=== PATIENT | male | born 1935 | race Caucasian/White ===

== ENCOUNTER → 2016-12-18 | Outpatient (REF) | payer MEDICARE, BC ==
[~2016-12-18] MED LIST: ADVA115A INH; ALB2.5NEB INH; ASPI1TAB PO; AZIT500T2 PO; BUPR15TA PO; CARV25TA PO; CLAR500T PO; COUM1TAB19 PO; DOCU100C PO; DOXY100C PO; DOXY75CA3 PO; FISH120012 PO; FLON0.054; FLUT1SPR2; FURO40TA2 PO; GABA600T PO; GLUCTAB61 PO; HYDR-3719 PO; MUCI1TAB18 PO; NEXI40CA PO; NITR4TASL SL; OCEA0.654; PRED10TA PO; PROA1AER INH; REST0.05 OU; ROSU10TA PO; SALI0.653; SPIR1CAP INH; SPIR25TA2 PO; TERA10CA3 PO; TOPR50TA PO; TYLE325T5 PO; VITA500046 PO
[2016-12-18 17:45] LABS: BASO % 0.7 % (0.0-1.0); EOS # 0.1 K/mm3 (0.0-0.50); EOS % 2.3 % (0.0-3.0); LARGE UNSTAINED CELL # 0.1 K/mm3 (0.0-0.4); LARGE UNSTAINED CELL % 2.6 % (0.0-4.0); LYMPH % 19.8 % (24.0-44.0); MEAN CORPUSCULAR HEMOGLOBIN 31.1 pg (27.0-33.0); MEAN CORPUSCULAR HGB CONC 32.4 g/dl (32.0-36.5); MONO # 0.4 K/mm3 (0.0-0.8); MONO % 9.6 % (0.0-5.0); NEUTROPHILS # 2.8 K/mm3 (1.8-7.7); RED CELL DISTRIBUTION WIDTH 14.8 % (11.5-14.5); WHITE BLOOD COUNT 4.3 K/mm3 (4.0-10.0)
[2016-12-18 20:20] LABS: ERYTHROCYTE SEDIMENTATION RATE 43 mm/hr (0-20)
[2016-12-18 20:33] LABS: PLATELET COUNT, AUTOMATED 76 k/mm3 (150-450)
[2016-12-20 14:16] LABS: Lyme Disease IgG/IgM Antibodie <0.91 ISR (0.00-0.90); Lyme Disease IgM Ab Quantitati <0.80 index (0.00-0.79)
== END | disposition home or self-care (01) ==
LOC: M LABDRAW1 15:46
PROVIDERS: ATTEND Orthopaedic Surgery
DX: M65.322 Trigger finger, left index finger (principal)

== ENCOUNTER 2016-12-26 21:35 | Emergency (ER) | payer MEDICARE, OTHER ==
--- NOTE | 2016-12-26 22:50 | REPUSA ---
Clinical history: Pain, swelling. Findings: The common femoral, superficial femoral, popliteal, and other deep venous structures compre ss normally and demonstrate normal color Doppler flow. Normal venous waveforms with augmentation are seen. Impression: No evidence of deep vein thrombosis in either femoral popliteal venous system.
[2016-12-26] MEDS ORDERED: IPRATROPIUM 0.5MG/ALBUTEROL 2.5MG INH SOL UD 3ML (DUONEB)(J7620) As Ordered ONE (23:02)
[2016-12-26 23:16] LABS: BASO % 0.4 % (0.0-1.0); EOS # 0.2 K/mm3 (0.0-0.50); LARGE UNSTAINED CELL # 0.2 K/mm3 (0.0-0.4); LARGE UNSTAINED CELL % 2.5 % (0.0-4.0); LYMPH # 0.8 K/mm3 (1.5-4.5); LYMPH % 11.1 % (24.0-44.0); MEAN CORPUSCULAR HEMOGLOBIN 31.1 pg (27.0-33.0); MEAN CORPUSCULAR HGB CONC 32.7 g/dl (32.0-36.5); MEAN CORPUSCULAR VOLUME 94.8 fl (80.0-96.0); MONO # 0.6 K/mm3 (0.0-0.8); NEUTROPHILS # 4.4 K/mm3 (1.8-7.7); NEUTROPHILS % 73.1 % (36.0-66.0); RED CELL DISTRIBUTION WIDTH 14.9 % (11.5-14.5)
[2016-12-26] MEDS ORDERED: methylPREDNISolone INJ 125 MG/2 ML VIAL (J2930) As Ordered ONE (23:17)
[2016-12-26] MEDS ORDERED: ASPIRIN 81 MG CHEW TABLET As Ordered ONE (23:17)
[2016-12-26 23:24] LABS: INR 2.32
[2016-12-26 23:37] LABS: ANION GAP 9 MEQ/L (8-16); BLOOD UREA NITROGEN 17 MG/DL (7-18); CALCIUM LEVEL 8.7 MG/DL (8.8-10.2); CARBON DIOXIDE LEVEL 26 MEQ/L (21-32); CHLORIDE LEVEL 104 MEQ/L (98-107); CREATININE FOR GFR 0.85 MG/DL (0.70-1.30); GLOMERULAR FILTRATION RATE > 60.0 (>35); GLUCOSE, FASTING 118 MG/DL (83-110); POTASSIUM SERUM 3.8 MEQ/L (3.5-5.1); SODIUM LEVEL 139 MEQ/L (136-145)
[2016-12-26 23:46] LABS: PLATELET COUNT, AUTOMATED 77 k/mm3 (150-450)
[2016-12-27] MEDS ORDERED: ISOVUE-370 76% 100ML VIAL (Q9967) As Ordered ONE (00:07)
--- NOTE | 2016-12-27 00:40 | REPUSA ---
CT angiogram of the chest Clinical statement: Chest pain and shortness of breath. Technique: Multiple axial CT images were obtained from the thoracic inlet through the upper abdomen a fter a bolus administration of nonionic intravenous contrast. Coronal and sagittal reconstructions we re also obtained. No comparison is available. Findings: The pulmonary arteries are well-opacified with contrast, with no intraluminal filling defec ts to suggest embolism. The thoracic aorta is unremarkable. Thyroid gland is within normal limits. Th ere is no thoracic lymphadenopathy. There are no pericardial or pleural effusions. The lungs are home r. Limited imaging of the upper abdomen is unremarkable. There are no suspicious osseous lesions. Impression: Unremarkable CT examination of the chest. No evidence of pulmonary embolism.
--- NOTE | 2016-12-27 05:18 | EDDOCDS ---
Nurse's Notes [facility] Name: Tor Terrazas Age: 81 yrs Sex: Male : 1935 Arrival Date: 12/26/2016 Time: 21:35 Bed OBSERVATION Private MD: Dennys Cobian Diagnosis: Chronic obstructive pulmonary disease with (acute) exacerbation Presentation: 12/26 21:42 Presenting complaint: Patient states: Increased SOB and muscle cramping began a week mlb1 ago, reports Pain heaviness in chest at this time. Presenting complaint:. Adult Sepsis Screening: The patient does not have new or worsening altered mentation. Patient's respiratory rate is less than 22. Adult Sepsis Screening: Systolic blood pressure is greater than 100. Patient has a qSOFA score of 0- Negative Sepsis Screen. Suicide/Homicide risk assessment- the patient denies having any suicidal and/or homicidal ideations and does not present with any other emotional, behavioral or mental health complaints. 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 Transition of care: patient was not received from another setting of care. 21:42 Acuity: PATIENCE Level 2 mlb1 21:42 Method Of Arrival: Walkin/Carried/Asstd mlb1 Triage Assessment: 21:50 General: Appears in no apparent distress, Behavior is appropriate for age, cooperative. mlb1 Pain: Location: chest Pain currently is 2 out of 10 on a pain scale. Quality of pain is described as heavy. Respiratory: Onset: The symptoms/episode began/occurred gradually, Airway is patent Respiratory effort is even, labored. Historical: - Allergies: no known allergies; - Home Meds: 1. Fish Oil 1200 mg Oral cap 2 tabs daily 2. spironolactone 25 mg Oral tab 1 tab 2 times per day 3. furosemide 40 mg Oral tab 1 tab 2 times per day 4. ProAir HFA 90 mcg/actuation inhalation HFAA 2 puffs every 6 hours 5. terazosin 10 mg oral cap 1 cap once daily 6. Flonase 50 mcg/actuation Nasal spsn 2 sprays once daily 7. Advair HFA 115-21 mcg/actuation inhalation HFAA 2 puffs 2 times per day 8. Restasis 0.05 % ophthalmic dpet 1 drop 2 times per day 9. Crestor 10 mg Oral tab 1 tab once daily 10. Nexium 40 mg Oral cpDR 1 cap 2 times per day 11. Spiriva with HandiHaler 18 mcg Inhl CpDv 1 cap once daily 12. Coumadin 3 mg Oral tab 2 tabs once daily 13. metoprolol succinate 50 mg Tb24 1 tab once daily 14. Nitrostat 0.4 mg SL subl 1 tab every 5 minutes as needed 15. gabapentin 600 mg Oral tab 1 tab 3 times per day 16. albuterol sulfate 2.5 mg /3 mL (0.083 %) Inhl nebu 3 mL 4 times per day 17. GI cocktail 15 mL four times a day as needed - PMHx: CAD; Atrial Fib; - PSHx: CABG; Stents, Coronary; Nephrectomy- Right; Appendectomy; - Social history: Smoking status: Patient states former smoker of tobacco. No barriers to communication noted, The patient speaks fluent Thai, Speaks appropriately for age. - Family history: Not pertinent. - : The pt / caregiver states he / she is on anticoagulants: coumadin. Home medication list is obtained from the patient. - Exposure Risk Screening:: None identified. Screenin:00 Screening information is obtained from the patient. Fall risk: No risks identified. js15 Assistance ADL's: requires no assistance with activities of daily living. Abuse/DV Screen: The patient / caregiver reports he/she is: not in a situation that causes fear, pain or injury. Nutritional screening: No deficits noted. Advance Directives: There is no active DNR order. home support is adequate. Assessment: 22:15 General: Appears in no apparent distress, comfortable, Behavior is appropriate for age, js15 cooperative. Pain: Denies pain. Neurological: Level of Consciousness is awake, alert, obeys commands, Oriented to person, place, time. Cardiovascular: Capillary refill < 3 seconds Heart tones S1 S2 present Rhythm is atrial fibrillation. Cardiovascular: Chest pain is denied. Respiratory: Airway is patent Respiratory effort is even, labored, Respiratory pattern is regular, symmetrical, Breath sounds with wheezes bilaterally. Reports shortness of breath. Derm: Skin is pink, warm & dry. 23:15 Reassessment: Patient appears in no apparent distress at this time. Pt resting on js15 stretcher, family at bedside, respirations even and unlabored; skin pink, warm, dry. 12/27 00:15 Reassessment: Patient appears in no apparent distress at this time. Patient denies pain js15 at this time. Patient states feeling better. Pt resting on stretcher, respirations even and unlabored; skin pink, warm, dry. 01:15 General: Appears in no apparent distress, comfortable, Behavior is appropriate for age, js15 cooperative. Pain: Denies pain. Neurological: Level of Consciousness is awake, alert, obeys commands, Oriented to person, place, time. Cardiovascular: Rhythm is atrial fibrillation. Respiratory: Airway is patent Respiratory effort is even, unlabored, Respiratory pattern is regular, symmetrical. Derm: Skin is pink, warm & dry. 02:30 Reassessment: Patient appears in no apparent distress at this time. Pt resting on js15 stretcher with eyes closed; respirations even and unlabored; skin pink, warm, dry. 03:30 Reassessment: Patient appears in no apparent distress at this time. Pt appears to be js15 sleeping; respiration even and unlabored; skin pink, warm, dry. 05:12 General: Appears in no apparent distress, comfortable, Behavior is appropriate for age, js15 cooperative. Pain: Denies pain. Neurological: Level of Consciousness is awake, alert, obeys commands, Oriented to person, place, time. Cardiovascular: Rhythm is atrial fibrillation. Respiratory: Airway is patent Respiratory effort is even, unlabored, Respiratory pattern is regular, symmetrical. Derm: Skin is pink, warm & dry. Vital Signs: 12/26 21:38 BP 149 / 80; Pulse 80; Resp 18 S; Temp 98.0(T); Pulse Ox 97% on R/A; Weight 114.31 kg gr2 (R); Height 5 ft. 8 in. (172.72 cm) (R); Pain 7/10; 22:26 Pulse 76 MON; Pulse Ox 96% ; js15 22:27 BP 142 / 63 (auto/); js15 22:46 Pulse 76 MON; Pulse Ox 96% ; js15 22:47 BP 132 / 80 (auto/); js15 22:56 Pulse 72 MON; Pulse Ox 96% ; js15 22:57 BP 143 / 65 (auto/); js15 23:11 Pulse 70 MON; Pulse Ox 97% ; js15 23:12 BP 140 / 63 (auto/); js15 23:26 Pulse 80 MON; Pulse Ox 96% ; js15 23:27 BP 140 / 65 (auto/); js15 23:42 BP 153 / 75 (auto/); js15 23:42 Pulse 84 MON; Pulse Ox 95% ; js15 23:56 Pulse 84 MON; Pulse Ox 94% ; js15 23:57 BP 151 / 59 (auto/); js15 12/27 00:11 Pulse 84 MON; Pulse Ox 95% ; js15 00:12 BP 146 / 60 (auto/); js15 00:27 BP 129 / 60 (auto/); js15 00:27 Pulse 82 MON; Pulse Ox 93% ; js15 00:42 BP 133 / 62 (auto/); js15 00:42 Pulse 78 MON; Pulse Ox 92% ; js15 01:12 BP 133 / 70 (auto/); js15 01:12 Pulse 78 MON; Pulse Ox 95% ; js15 01:26 Pulse 78 MON; Pulse Ox 94% ; js15 01:27 BP 131 / 63 (auto/); js15 01:41 Pulse 70 MON; Pulse Ox 94% ; js15 01:42 BP 106 / 58 (auto/); js15 01:56 Pulse 70 MON; Pulse Ox 94% ; js15 01:57 BP 139 / 75 (auto/); js15 02:11 Pulse 64 MON; Pulse Ox 94% ; js15 02:12 BP 134 / 63 (auto/); js15 02:26 Pulse 68 MON; Pulse Ox 94% ; js15 02:27 BP 127 / 62 (auto/); js15 02:38 Pulse 70 MON; Pulse Ox 95% ; js15 02:42 BP 141 / 81 (auto/); js15 02:57 BP 120 / 65 (auto/); js15 02:57 Pulse 68 MON; Pulse Ox 93% ; js15 03:11 Pulse 66 MON; Pulse Ox 94% ; js15 03:12 BP 118 / 58 (auto/); js15 03:26 Pulse 68 MON; Pulse Ox 94% ; js15 03:27 BP 127 / 63 (auto/); js15 03:41 Pulse 66 MON; Pulse Ox 95% ; js15 03:42 BP 127 / 60 (auto/); js15 03:56 Pulse 72 MON; Pulse Ox 95% ; js15 03:57 BP 139 / 77 (auto/); js15 04:12 BP 135 / 75 (auto/); js15 04:12 Pulse 72 MON; Pulse Ox 95% ; js15 04:26 Pulse 70 MON; Pulse Ox 95% ; js15 04:27 BP 138 / 72 (auto/); js15 04:41 Pulse 68 MON; Pulse Ox 96% ; js15 04:42 BP 137 / 64 (auto/); js15 04:57 BP 147 / 70 (auto/); js15 04:58 Pulse 78 MON; Resp 20; Temp 98.0(TE); Pulse Ox 96% on R/A; js15 12/26 21:38 Body Mass Index 38.32 (114.31 kg, 172.72 cm) gr2 Vitals: 12/26 21:38 Log In Time: December 26, 2016 at 21:38. RN notified that patient meets Red Flag gr2 criteria. ED Course: 21:37 Patient visited by Sarah Shrestha. gr2 21:37 Patient moved to Waiting gr2 21:38 Dennys Cobian is Private Physician. gr2 21:41 Patient visited by Sarah Shrestha. gr2 21:41 Patient moved to Pre RCE gr2 21:42 Patient visited by Tereso Zamudio, MAKSIM. mlb1 21:46 Triage Initiated mlb1 21:49 Patient moved to 17 ms18 21:50 Patient visited by Tereso Zamudio, RN. mlb1 21:51 Alfie Pagan MD is Attending Physician. br1 22:06 Patient visited by Alfie Pagan MD. br1 22:10 EKG done. (by ED staff). Reviewed by Alfie Pagan MD. js15 22:15 Patient moved to Ultrasound en 22:43 Patient moved to 17 en 23:00 Inserted saline lock: 20 gauge in right antecubital area The patient tolerated the js15 procedure well. 23:04 Patient visited by Anny Toth,RN. js15 23:04 PTT Sent. js15 23:04 PT/INR Sent. js15 23:04 B-Type Natiuretic Peptide Sent. js15 23:04 Basic Metabolic Profile Sent. js15 23:04 CBC with Diff Sent. js15 23:04 Troponin Sent. js15 23:04 Cardiac Injury Profile Sent. js15 23:05 Ultrasound Bilateral LE R/O DVT Returned. EDMS 12/27 00:39 Patient visited by Anny Toth RN. js15 00:45 Patient visited by Alfie Pagan MD. br1 01:04 Pt greeted and oriented to ED. Patient advised of names of staff involved in care, rs6 location of call tristan, wait times and NPO status. Accompanied by Family Member, Patient has correct armband on for positive identification. Placed in gown. Bed in low position. Call light in reach. Side rails up X 1. 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 Pulse ox on. NIBP on. 01:05 ambulated pt with pulse ox monitor. Pulse ox ranged from 89-94% on room air and his rs6 heart rate ranged between 80-120 bpm. Pt denies pain, dizziness and shortness of breath. Dr. Pagan notified. 01:08 Patient visited by Sintia Royal PCA. rs6 01:08 CT Chest Angio R/O PE Returned. EDMS 01:35 Patient moved to OBSERVATION sls1 04:42 Patient visited by Alfie Pagan MD. br1 04:51 Anna Garcia is Referral Physician. br1 04:51 Misael Sheppard MD is Referral Physician. br1 04:51 Your own Physician is Referral Physician. br1 05:08 [facility] Payment Agreement was scanned into [facility] and attached to record. hs2 05:12 Patient name changed from Tor\S\\S\Terrazas\S\ to Tor\S\ \S\Terrazas. EDMS 05:14 The patient / caregiver is instructed regarding the plan of care and ED course. js15 05:14 Discontinued IV lock intact, bleeding controlled, pressure dressing applied, No js15 redness/swelling at site. No procedures done that require assistance. Administered Medications: 12/26 23:00 Drug: Albuterol-Ipratropium 1 neb [ipratropium-albuterol 0.5 mg-3 mg(2.5 mg base)/3 mL dk nebulization soln (1 neb)] Route: Nebulizer; 23:25 Drug: Albuterol-Ipratropium 1 neb [ipratropium-albuterol 0.5 mg-3 mg(2.5 mg base)/3 mL dk nebulization soln (1 neb)] Route: Nebulizer; 23:40 Drug: Aspirin 324 mg [aspirin 81 mg chewable tablet (4 tabs)] Route: PO; 23:41 Drug: Solu-MEDROL 125 mg [Solu-Medrol 500 mg intravenous solution (125 mg)] Route: IVP; Site: right antecubital; 23:45 Drug: Albuterol-Ipratropium 1 neb [ipratropium-albuterol 0.5 mg-3 mg(2.5 mg base)/3 mL dk nebulization soln (1 neb)] Route: Nebulizer; RT: 23:46 Initial Med Neb Given as ordered Patient was instructed and evaluated on procedure dk Patient tolerated procedure well without adverse effect. Oxygen is room air. Respiratory: No deficits noted. Airway is patent Respiratory effort is even, unlabored, Respiratory pattern is regular symmetrical, Breath sounds with rales Breath sounds with wheezes at expiration. 23:47 Subsequent Med Neb Given as ordered Patient tolerated procedure well without adverse dk effect. Respiratory: Breath sounds with rales Breath sounds with wheezes at expiration. 23:47 Subsequent Med Neb Given as ordered. Respiratory: Breath sounds with rales Breath dk sounds with wheezes at expiration. Order Results: Lab Order: B-Type Natiuretic Peptide; SPEC'M 12/26/16 22:58 Test: BRAIN NATRIURETIC PEPTIDE; Value: 231; Range: <100; Abnormal: Above high normal; Units: PG/ML; Status: F Lab Order: Basic Metabolic Profile; SPEC'M 12/26/16 22:58 Test: GLUCOSE, FASTING; Value: 118; Range: 83-110; Abnormal: Above high normal; Units: MG/DL; Status: F Test: BLOOD UREA NITROGEN; Value: 17; Range: 7-18; Units: MG/DL; Status: F Test: CREATININE FOR GFR; Value: 0.85; Range: 0.70-1.30; Units: MG/DL; Status: F Test: GLOMERULAR FILTRATION RATE; Value: > 60.0; Range: >35; Status: F Test: SODIUM LEVEL; Value: 139; Range: 136-145; Units: MEQ/L; Status: F Test: POTASSIUM SERUM; Value: 3.8; Range: 3.5-5.1; Units: MEQ/L; Status: F Test: CHLORIDE LEVEL; Value: 104; Range: 98-107; Units: MEQ/L; Status: F Test: CARBON DIOXIDE LEVEL; Value: 26; Range: 21-32; Units: MEQ/L; Status: F Test: ANION GAP; Value: 9; Range: 8-16; Units: MEQ/L; Status: F Test: CALCIUM LEVEL; Value: 8.7; Range: 8.8-10.2; Abnormal: Below low normal; Units: MG/DL; Status: F Test Note: ; Units are mL/min/1.73 m2 Chronic Kidney Disease Staging per NKF: Stage I & II GFR >=60 Normal to Mildly Decreased Stage III GFR 30-59 Moderately Decreased Stage IV GFR 15-29 Severely Decreased Stage V GFR <15 Very Little GFR Left ESRD GFR <15 on 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 Lab Order: CBC with Diff; SPEC'M 12/26/16 22:58 Test: WHITE BLOOD COUNT; Value: 6.0; Range: 4.0-10.0; Units: K/mm3; Status: F Test: RED BLOOD COUNT; Value: 4.11; Range: 4.30-6.10; Abnormal: Below low normal; Units: M/mm3; Status: F Test: HEMOGLOBIN; Value: 12.8; Range: 14.0-18.0; Abnormal: Below low normal; Units: g/dl; Status: F Test: HEMATOCRIT; Value: 39.0; Range: 42.0-52.0; Abnormal: Below low normal; Units: %; Status: F Test: MEAN CORPUSCULAR VOLUME; Value: 94.8; Range: 80.0-96.0; Units: fl; Status: F Test: MEAN CORPUSCULAR HEMOGLOBIN; Value: 31.1; Range: 27.0-33.0; Units: pg; Status: F Test: MEAN CORPUSCULAR HGB CONC; Value: 32.7; Range: 32.0-36.5; Units: g/dl; Status: F Test: RED CELL DISTRIBUTION WIDTH; Value: 14.9; Range: 11.5-14.5; Abnormal: Above high normal; Units: %; Status: F Test: PLATELET COUNT, AUTOMATED; Value: 77; Range: 150-450; Abnormal: Below low normal; Units: k/mm3; Status: F Test: NEUTROPHILS %; Value: 73.1; Range: 36.0-66.0; Abnormal: Above high normal; Units: %; Status: F Test: LYMPH %; Value: 11.1; Range: 24.0-44.0; Abnormal: Below low normal; Units: %; Status: F Test: MONO %; Value: 10.0; Range: 0.0-5.0; Abnormal: Above high normal; Units: %; Status: F Test: EOS %; Value: 3.0; Range: 0.0-3.0; Units: %; Status: F Test: BASO %; Value: 0.4; Range: 0.0-1.0; Units: %; Status: F Test: LARGE UNSTAINED CELL %; Value: 2.5; Range: 0.0-4.0; Units: %; Status: F Test: NEUTROPHILS #; Value: 4.4; Range: 1.8-7.7; Units: K/mm3; Status: F Test: LYMPH #; Value: 0.8; Range: 1.5-4.5; Abnormal: Below low normal; Units: K/mm3; Status: F Test: MONO #; Value: 0.6; Range: 0.0-0.8; Units: K/mm3; Status: F Test: EOS #; Value: 0.2; Range: 0.0-0.50; Units: K/mm3; Status: F Test: BASO #; Value: 0.0; Range: 0.0-0.2; Units: K/mm3; Status: F Test: LARGE UNSTAINED CELL #; Value: 0.2; Range: 0.0-0.4; Units: K/mm3; Status: F Lab Order: Cardiac Injury Profile; SPEC'M 12/26/16 22:58 Test: CPK CREATINE PHOSPHOKINASE; Value: 117; Range: 39-308; Units: U/L; Status: F Test: CK-MB VALUE MASS; Value: 1.2; Range: 0.0-3.6; Units: NG/ML; Status: F Test: MB/CK RELATIVE INDEX; Value: 1.02; Range: < OR =4; Status: F Test Note: ; DIAGNOSIS CRITERIA MMB ng/ml Relative Index (RI) NON-AMI < or = 5 N/A PRIETO ZONE > 5 < or = 4 AMI > 5 > 4 Lab Order: Troponin; [facility] 12/26/16 22:58 Test: TROPONIN I; Value: < 0.02; Range: < 0.10; Units: NG/ML; Status: F Test Note: ; Troponin I Reference Interval for Siemens [email or web address].[email or web address] LOCI: 99th Percentile= 0.00-0.045 ng/ml Risk Stratification: <= 0.10 ng/ml Decreased Risk for Adverse Clinical Events. 0.10-1.50 ng/ml Increased Risk for Adverse Clinical Events. Evaluation of additional criterion and/or repeat testing in 2-6 hours is suggested to rule out myocardial damage. >= 1.50 ng/ml Indicative of Myocardial Injury. Lab Order: PT/INR; [facility] 12/26/16 22:58 Test: PROTHROMBIN TIME; Value: 25.5; Range: 12.3-14.5; Abnormal: Above high normal; Units: SECONDS; Status: F Test: INR; Value: 2.32; Status: F Test Note: ; THERAPUTIC HUMAN INR VALUES INDICATIONS NORMAL RANGES PROPHYLAXIS/TREATMENT OF: VENOUS THROMBOSIS 2.0-3.0 PULMONARY EMBOLISM 2.0-3.0 PREVENTION OF SYSTEMIC EMBOLISM FROM: TISSUE HEART VALVES 2.0-3.0 ACUTE MYOCARDIAL INFARCTION 2.0-3.0 VALVULAR HEART DISEASE 2.0-3.0 ATRIAL FIBRILLATION 2.0-3.0 MECHANICAL VALVES(HIGH RISK) 2.5-3.5 RECURRENT MYOCARDIAL INFARCTION 2.5-3.5 Lab Order: PTT; [facility] 12/26/16 22:58 Test: PARTIAL THROMBOPLASTIN TIME; Value: 65.4; Range: 26.6-37.1; Abnormal: Above high normal; Units: SECONDS; Status: F Lab Order: CARDIAC INJURY PROFILE; [facility] 12/27/16 04:03 Test: CPK CREATINE PHOSPHOKINASE; Value: 107; Range: 39-308; Units: U/L; Status: F Test: CK-MB VALUE MASS; Value: 1.1; Range: 0.0-3.6; Units: NG/ML; Status: F Test: MB/CK RELATIVE INDEX; Value: 1.02; Range: < OR =4; Status: F Test Note: ; DIAGNOSIS CRITERIA MMB ng/ml Relative Index (RI) NON-AMI < or = 5 N/A PRIETO ZONE > 5 < or = 4 AMI > 5 > 4 Lab Order: TROPONIN; SPEC'M 12/27/16 04:03 Test: TROPONIN I; Value: < 0.02; Range: < 0.10; Units: NG/ML; Status: F Test Note: ; Troponin I Reference Interval for Siemens [place] LOCI: 99th Percentile= 0.00-0.045 ng/ml Risk Stratification: <= 0.10 ng/ml Decreased Risk for Adverse Clinical Events. 0.10-1.50 ng/ml Increased Risk for Adverse Clinical Events. Evaluation of additional criterion and/or repeat testing in 2-6 hours is suggested to rule out myocardial damage. >= 1.50 ng/ml Indicative of Myocardial Injury. Radiology Order: Ultrasound Bilateral LE R/O DVT Test: Ultrasound Bilateral LE R/O DVT REASON FOR EXAMINATION: Deformity/Swelling; ; Clinical history: Pain, swelling.; Findings: The common femoral, superficial femoral, popliteal, and other deep venous structures compre; ss normally and demonstrate normal color Doppler flow. Normal venous waveforms with augmentation are; seen.; Impression:; No evidence of deep vein thrombosis in either femoral popliteal venous system.; ; Radiology Order: CT Chest Angio R/O PE Test: CT Chest Angio R/O PE REASON FOR EXAMINATION: Chest Pain; ; CT angiogram of the chest; Clinical statement: Chest pain and shortness of breath.; Technique: Multiple axial CT images were obtained from the thoracic inlet through the upper abdomen a; fter a bolus administration of nonionic intravenous contrast. Coronal and sagittal reconstructions we; re also obtained.; No comparison is available.; Findings: The pulmonary arteries are well-opacified with contrast, with no intraluminal filling defec; ts to suggest embolism. The thoracic aorta is unremarkable. Thyroid gland is within normal limits. Th; ere is no thoracic lymphadenopathy. There are no pericardial or pleural effusions. The lungs are home; r. Limited imaging of the upper abdomen is unremarkable. There are no suspicious osseous lesions.; Impression: Unremarkable CT examination of the chest. No evidence of pulmonary embolism.; ; Outcome: 12/27 04:52 Discharge ordered by Provider. br1 05:14 Discharge Assessment: Patient awake, alert and oriented x 3. No cognitive and/or js15 functional deficits noted. Patient verbalized understanding of disposition instructions. patient administered narcotics - no. The following High Risk Discharge criteria are identified: None. Discharged to home ambulatory, with family. Condition: improved. Discharge instructions given to patient, Instructed on discharge instructions, follow up and referral plans. medication usage, Demonstrated understanding of instructions, medications, Pt was receptive of discharge instructions/ teaching. Prescriptions given X 1. CT Study completed. Ultrasound Study completed. Property sent home with patient. 05:17 Patient left the ED. js15 Signatures: Dispatcher [employer] EDMS Tereso Zamudio RN RN mlb1 Rachael Johnson,RT RT Alfie Herrera MD MD br1 Gregoria Ross RN RN sls1 Sarah Shrestha gr2 Funmilayo Singh,RN RN ms18 Sintia Royal, ADDRESSOGRAPH OPERATOR ADDRESSOGRAPH OPERATOR rs6 Anny TothRN RN js15 Charo Stephens Hillary, Reg Reg hs2 KALEY
--- NOTE | 2016-12-27 05:18 | EDDOCDS ---
Physician Documentation [facility] Name: Tor Terrazas Age: 81 yrs Sex: Male : 1935 Arrival Date: 12/26/2016 Time: 21:35 Bed OBSERVATION Private MD: Dennys Cobian Disposition: 12/27/16 04:52 Discharged to Home/Self Care. Impression: Chronic obstructive pulmonary disease with (acute) exacerbation. - Condition is Stable. - Discharge Instructions: Chronic Obstructive Pulmonary Disease. - Prescriptions for Prednisone 20 mg Oral Tablet - take 2 tablets by ORAL route once daily for 4 days; 8 tablet. - Medication Reconciliation, Local Pharmacy Hours form. - Follow up: Anna Garcia; When: 2 - 3 days; Reason: Recheck today's complaints. Follow up: Misael Sheppard MD; When: 2 - 3 days; Reason: Recheck today's complaints. Follow up: Your own Physician; When: 2 - 3 days; Reason: Recheck today's complaints. - Problem is new. - Symptoms are resolved. - Notes: You were seen in the ED for shortness of breath and wheezing concerning for an exacerbation of your COPD. Bloodwork along with EKG of the heart, chest Xray and CT scan showed no other acute findings. You were treated and imrpoved with breathing treatments and steroids in the ED. As you are feeling better you may return home. Call your primary doctor and Dr. Sheppard in the morning to discuss the ED visit and arrange to be seen for follow up. You may continue your breathing treatements and may take the Prednisone for 4 more days. Call your Community Theater Actor Dr. Vasquez at [facility] to discuss the chest heaviness and arrange to be seen by her for further evaluation. Return to the ED for any return of chest pain, trouble breathing, lightheadedness, loss of consciousness, fever, or any other concerns. Historical: - Allergies: no known allergies; - Home Meds: 1. Fish Oil 1200 mg Oral cap 2 tabs daily 2. spironolactone 25 mg Oral tab 1 tab 2 times per day 3. furosemide 40 mg Oral tab 1 tab 2 times per day 4. ProAir HFA 90 mcg/actuation inhalation HFAA 2 puffs every 6 hours 5. terazosin 10 mg oral cap 1 cap once daily 6. Flonase 50 mcg/actuation Nasal spsn 2 sprays once daily 7. Advair HFA 115-21 mcg/actuation inhalation HFAA 2 puffs 2 times per day 8. Restasis 0.05 % ophthalmic dpet 1 drop 2 times per day 9. Crestor 10 mg Oral tab 1 tab once daily 10. Nexium 40 mg Oral cpDR 1 cap 2 times per day 11. Spiriva with HandiHaler 18 mcg Inhl CpDv 1 cap once daily 12. Coumadin 3 mg Oral tab 2 tabs once daily 13. metoprolol succinate 50 mg Tb24 1 tab once daily 14. Nitrostat 0.4 mg SL subl 1 tab every 5 minutes as needed 15. gabapentin 600 mg Oral tab 1 tab 3 times per day 16. albuterol sulfate 2.5 mg /3 mL (0.083 %) Inhl nebu 3 mL 4 times per day 17. GI cocktail 15 mL four times a day as needed - PMHx: CAD; Atrial Fib; - PSHx: CABG; Stents, Coronary; Nephrectomy- Right; Appendectomy; - Social history: Smoking status: Patient states former smoker of tobacco. No barriers to communication noted, The patient speaks fluent Slovak, Speaks appropriately for age. - Family history: Not pertinent. - : The pt / caregiver states he / she is on anticoagulants: coumadin. Home medication list is obtained from the patient. - Exposure Risk Screening:: None identified. Vital Signs: 12/26 21:38 BP 149 / 80; Pulse 80; Resp 18 S; Temp 98.0(T); Pulse Ox 97% on R/A; Weight 114.31 kg / gr2 252.01 lbs (R); Height 5 ft. 8 in. (172.72 cm) (R); Pain 7/10; 22:26 Pulse 76 MON; Pulse Ox 96% ; js15 22:27 BP 142 / 63 (auto/); js15 22:46 Pulse 76 MON; Pulse Ox 96% ; js15 22:47 BP 132 / 80 (auto/); js15 22:56 Pulse 72 MON; Pulse Ox 96% ; js15 22:57 BP 143 / 65 (auto/); js15 23:11 Pulse 70 MON; Pulse Ox 97% ; js15 23:12 BP 140 / 63 (auto/); js15 23:26 Pulse 80 MON; Pulse Ox 96% ; js15 23:27 BP 140 / 65 (auto/); js15 23:42 BP 153 / 75 (auto/); js15 23:42 Pulse 84 MON; Pulse Ox 95% ; js15 23:56 Pulse 84 MON; Pulse Ox 94% ; js15 23:57 BP 151 / 59 (auto/); 15 12/27 00:11 Pulse 84 MON; Pulse Ox 95% ; js15 00:12 BP 146 / 60 (auto/); js15 00:27 BP 129 / 60 (auto/); js15 00:27 Pulse 82 MON; Pulse Ox 93% ; js15 00:42 BP 133 / 62 (auto/); js15 00:42 Pulse 78 MON; Pulse Ox 92% ; js15 01:12 BP 133 / 70 (auto/); js15 01:12 Pulse 78 MON; Pulse Ox 95% ; js15 01:26 Pulse 78 MON; Pulse Ox 94% ; js15 01:27 BP 131 / 63 (auto/); js15 01:41 Pulse 70 MON; Pulse Ox 94% ; js15 01:42 BP 106 / 58 (auto/); js15 01:56 Pulse 70 MON; Pulse Ox 94% ; js15 01:57 BP 139 / 75 (auto/); js15 02:11 Pulse 64 MON; Pulse Ox 94% ; js15 02:12 BP 134 / 63 (auto/); js15 02:26 Pulse 68 MON; Pulse Ox 94% ; js15 02:27 BP 127 / 62 (auto/); js15 02:38 Pulse 70 MON; Pulse Ox 95% ; js15 02:42 BP 141 / 81 (auto/); js15 02:57 BP 120 / 65 (auto/); js15 02:57 Pulse 68 MON; Pulse Ox 93% ; js15 03:11 Pulse 66 MON; Pulse Ox 94% ; js15 03:12 BP 118 / 58 (auto/); js15 03:26 Pulse 68 MON; Pulse Ox 94% ; js15 03:27 BP 127 / 63 (auto/); js15 03:41 Pulse 66 MON; Pulse Ox 95% ; js15 03:42 BP 127 / 60 (auto/); js15 03:56 Pulse 72 MON; Pulse Ox 95% ; js15 03:57 BP 139 / 77 (auto/); js15 04:12 BP 135 / 75 (auto/); js15 04:12 Pulse 72 MON; Pulse Ox 95% ; js15 04:26 Pulse 70 MON; Pulse Ox 95% ; js15 04:27 BP 138 / 72 (auto/); js15 04:41 Pulse 68 MON; Pulse Ox 96% ; js15 04:42 BP 137 / 64 (auto/); js15 04:57 BP 147 / 70 (auto/); js15 04:58 Pulse 78 MON; Resp 20; Temp 98.0(TE); Pulse Ox 96% on R/A; js15 12/26 21:38 Body Mass Index 38.32 (114.31 kg, 172.72 cm) gr2 MDM: 12/26 21:52 A[employer] Plans Staff Officer/Pulse Ox/q 30 min VS ordered. br1 21:52 IV Saline Lock ordered. br1 21:52 Rhythm Strip to chart ordered. br1 21:52 Undress patient appropriately for examination ordered. br1 21:52 ECG WITH READING ER PHYS+CARDIAG ordered. EDMS 21:53 B-Type Natiuretic Peptide Ordered. EDMS 21:53 Basic Metabolic Profile Ordered. EDMS 21:53 CBC with Diff Ordered. EDMS 21:53 Cardiac Injury Profile Ordered. EDMS 21:53 Troponin Ordered. EDMS 22:07 Albuterol-Ipratropium 1 neb Nebulizer every 20 minutes x3 ordered. br1 22:07 Call Respiratory ordered. br1 22:07 Solu-MEDROL 125 mg IVP once ordered. br1 22:08 Aspirin 324 mg PO once ordered. br1 22:09 Ultrasound Bilateral LE R/O DVT Ordered. EDMS 22:09 Chest, 2 View (pa\E\lat) Ordered. EDMS 22:09 PT/INR Ordered. EDMS 22:09 PTT Ordered. EDMS 22:09 Call Respiratory complete. js15 22:38 Misc. Nursing Order ordered. br1 23:31 B-Type Natiuretic Peptide Reviewed. br1 23:31 PT/INR Reviewed. br1 23:31 PTT Reviewed. br1 23:31 Ultrasound Bilateral LE R/O DVT Reviewed. br1 23:47 Basic Metabolic Profile Reviewed. br1 23:47 Cardiac Injury Profile Reviewed. br1 23:47 Troponin Reviewed. br1 23:49 CT Chest Angio R/O PE Ordered. EDMS 23:52 CBC with Diff Reviewed. br1 23:54 Financial registration complete. hs2 12/27 00:45 Ambulate Patient wth Pulse Oximetry ordered. br1 01:14 Repeat EKG (put time details section) ordered. br1 01:14 Redraw CIP &Troponin (put time in details section) ordered. br1 01:27 Repeat EKG (put time details section) complete. kb5 01:27 Redraw CIP &Troponin (put time in details section) complete. kb5 01:27 CARDIAC INJURY PROFILE Ordered. EDMS 01:27 TROPONIN Ordered. EDMS 01:28 Admit to ED Observation status ordered. br1 01:28 ELECTROCARDIOGRAM ADULT ordered. EDMS 01:41 Admit to ED Observation status complete. sls1 04:39 CARDIAC INJURY PROFILE Reviewed. br1 04:39 TROPONIN Reviewed. br1 04:39 CT Chest Angio R/O PE Reviewed. br1 05:08 [facility] Payment Agreement was scanned into [employer] and attached to record. hs2 Administered Medications: 12/26 23:00 Drug: Albuterol-Ipratropium 1 neb [ipratropium-albuterol 0.5 mg-3 mg(2.5 mg base)/3 mL dk nebulization soln (1 neb)] Route: Nebulizer; 23:25 Drug: Albuterol-Ipratropium 1 neb [ipratropium-albuterol 0.5 mg-3 mg(2.5 mg base)/3 mL dk nebulization soln (1 neb)] Route: Nebulizer; 23:40 Drug: Aspirin 324 mg [aspirin 81 mg chewable tablet (4 tabs)] Route: PO; js15 23:41 Drug: Solu-MEDROL 125 mg [Solu-Medrol 500 mg intravenous solution (125 mg)] Route: IVP; js15 Site: right antecubital; 23:45 Drug: Albuterol-Ipratropium 1 neb [ipratropium-albuterol 0.5 mg-3 mg(2.5 mg base)/3 mL dk nebulization soln (1 neb)] Route: Nebulizer; Signatures: Dispatcher [employer] EDMS Tereso Zamudio RN RN mlb1 Evangelist Suazo, SOLICITOR PATENT SOLICITOR PATENT kb5 Alfie Pagan MD MD br1 Gregoria Ross RN RN sls1 Anny Toth,RN RN js15 Socorro Madden, Reg Reg hs2 Rachael Johnson The chart was reviewed and I authenticate all verbal orders and agree with the evaluation and treatment provided.Attachments: 12/27 05:08 [facility] Payment Agreement hs2 [place]ER[place]
--- NOTE | 2016-12-27 07:50 | REP ---
Clinical: Shortness of breath. Technique: PA and lateral. Comparison: 10/29/2015. Findings: Mediastinum and cardiac silhouette are stable - sternotomy and CABG again noted. The lung dexter demonstrate diffuse chronic changes primarily involving the lower lung dexter. No obvious acute consolidation, effusion, or pneumothorax. Skeletal structures intact. Impression: Chronic stable changes. No obvious acute cardiopulmonary process. Signed by Vitor Martinez MD 12/27/2016 07:42 A
--- NOTE | 2016-12-27 10:04 | ECGEPIP ---
Stationary ECG Study [facility] - ED Test Date: 2016-12-26 Pat Name: MILAN ABDI Department: Room: - Gender: M Family Psychologist: wesley : 1935 Requested By: JACE Lemus Order Number: [id number] Reading MD: Elsa Ríos Measurements Intervals [place] Rate: 79 P: CT: 0 QRS: 93 QRSD: 164 T: 29 QT: 416 QTc: 480 Interpretive Statements ATRIAL FIBRILLATION RIGHT BUNDLE BRANCH BLOCK SIMILAR 11/02/15 Electronically Signed On 12-27-2016 10:04:16 EST by Elsa Ríos
--- NOTE | 2016-12-27 13:51 | ECGEPIP ---
Stationary ECG Study [facility] Test Date: 2016-12-27 Pat Name: MILAN ABDI Department: Room: - Gender: M Collection Team Lead: wesley : 1935 Requested By: JACE Lemus Order Number: [id number] Reading MD: Anatoliy Parks Measurements Intervals [place] Rate: 70 P: NM: 0 QRS: 87 QRSD: 161 T: 31 QT: 439 QTc: 474 Interpretive Statements ATRIAL FIBRILLATION RIGHT BUNDLE BRANCH BLOCK Electronically Signed On 12-27-2016 13:51:06 EST by Anatoliy Parks
--- NOTE | 2016-12-29 06:18 | EDDOCDS ---
Physician Documentation [facility] Name: Tor Terrazas Age: 81 yrs Sex: Male : 1935 Arrival Date: 12/26/2016 Time: 21:35 Bed OBSERVATION Private MD: Dennys Cobian Disposition: 12/27/16 04:52 Discharged to Home/Self Care. Impression: Chronic obstructive pulmonary disease with (acute) exacerbation. - Condition is Stable. - Discharge Instructions: Chronic Obstructive Pulmonary Disease. - Prescriptions for Prednisone 20 mg Oral Tablet - take 2 tablets by ORAL route once daily for 4 days; 8 tablet. - Medication Reconciliation, Local Pharmacy Hours form. - Follow up: Anna Garcia; When: 2 - 3 days; Reason: Recheck today's complaints. Follow up: Misael Sheppard MD; When: 2 - 3 days; Reason: Recheck today's complaints. Follow up: Your own Physician; When: 2 - 3 days; Reason: Recheck today's complaints. - Problem is new. - Symptoms are resolved. - Notes: You were seen in the ED for shortness of breath and wheezing concerning for an exacerbation of your COPD. Bloodwork along with EKG of the heart, chest Xray and CT scan showed no other acute findings. You were treated and imrpoved with breathing treatments and steroids in the ED. As you are feeling better you may return home. Call your primary doctor and Dr. Sheppard in the morning to discuss the ED visit and arrange to be seen for follow up. You may continue your breathing treatements and may take the Prednisone for 4 more days. Call your E D Tech Dr. Vasquez at [facility] to discuss the chest heaviness and arrange to be seen by her for further evaluation. Return to the ED for any return of chest pain, trouble breathing, lightheadedness, loss of consciousness, fever, or any other concerns. Historical: - Allergies: no known allergies; - Home Meds: 1. Fish Oil 1200 mg Oral cap 2 tabs daily 2. spironolactone 25 mg Oral tab 1 tab 2 times per day 3. furosemide 40 mg Oral tab 1 tab 2 times per day 4. ProAir HFA 90 mcg/actuation inhalation HFAA 2 puffs every 6 hours 5. terazosin 10 mg oral cap 1 cap once daily 6. Flonase 50 mcg/actuation Nasal spsn 2 sprays once daily 7. Advair HFA 115-21 mcg/actuation inhalation HFAA 2 puffs 2 times per day 8. Restasis 0.05 % ophthalmic dpet 1 drop 2 times per day 9. Crestor 10 mg Oral tab 1 tab once daily 10. Nexium 40 mg Oral cpDR 1 cap 2 times per day 11. Spiriva with HandiHaler 18 mcg Inhl CpDv 1 cap once daily 12. Coumadin 3 mg Oral tab 2 tabs once daily 13. metoprolol succinate 50 mg Tb24 1 tab once daily 14. Nitrostat 0.4 mg SL subl 1 tab every 5 minutes as needed 15. gabapentin 600 mg Oral tab 1 tab 3 times per day 16. albuterol sulfate 2.5 mg /3 mL (0.083 %) Inhl nebu 3 mL 4 times per day 17. GI cocktail 15 mL four times a day as needed - PMHx: CAD; Atrial Fib; - PSHx: CABG; Stents, Coronary; Nephrectomy- Right; Appendectomy; - Social history: Smoking status: Patient states former smoker of tobacco. No barriers to communication noted, The patient speaks fluent Serbian, Speaks appropriately for age. - Family history: Not pertinent. - : The pt / caregiver states he / she is on anticoagulants: coumadin. Home medication list is obtained from the patient. - Exposure Risk Screening:: None identified. Vital Signs: 12/26 21:38 BP 149 / 80; Pulse 80; Resp 18 S; Temp 98.0(T); Pulse Ox 97% on R/A; Weight 114.31 kg / gr2 252.01 lbs (R); Height 5 ft. 8 in. (172.72 cm) (R); Pain 7/10; 22:26 Pulse 76 MON; Pulse Ox 96% ; js15 22:27 BP 142 / 63 (auto/); js15 22:46 Pulse 76 MON; Pulse Ox 96% ; js15 22:47 BP 132 / 80 (auto/); js15 22:56 Pulse 72 MON; Pulse Ox 96% ; js15 22:57 BP 143 / 65 (auto/); js15 23:11 Pulse 70 MON; Pulse Ox 97% ; js15 23:12 BP 140 / 63 (auto/); js15 23:26 Pulse 80 MON; Pulse Ox 96% ; js15 23:27 BP 140 / 65 (auto/); js15 23:42 BP 153 / 75 (auto/); js15 23:42 Pulse 84 MON; Pulse Ox 95% ; js15 23:56 Pulse 84 MON; Pulse Ox 94% ; js15 23:57 BP 151 / 59 (auto/); 15 12/27 00:11 Pulse 84 MON; Pulse Ox 95% ; js15 00:12 BP 146 / 60 (auto/); js15 00:27 BP 129 / 60 (auto/); js15 00:27 Pulse 82 MON; Pulse Ox 93% ; js15 00:42 BP 133 / 62 (auto/); js15 00:42 Pulse 78 MON; Pulse Ox 92% ; js15 01:12 BP 133 / 70 (auto/); js15 01:12 Pulse 78 MON; Pulse Ox 95% ; js15 01:26 Pulse 78 MON; Pulse Ox 94% ; js15 01:27 BP 131 / 63 (auto/); js15 01:41 Pulse 70 MON; Pulse Ox 94% ; js15 01:42 BP 106 / 58 (auto/); js15 01:56 Pulse 70 MON; Pulse Ox 94% ; js15 01:57 BP 139 / 75 (auto/); js15 02:11 Pulse 64 MON; Pulse Ox 94% ; js15 02:12 BP 134 / 63 (auto/); js15 02:26 Pulse 68 MON; Pulse Ox 94% ; js15 02:27 BP 127 / 62 (auto/); js15 02:38 Pulse 70 MON; Pulse Ox 95% ; js15 02:42 BP 141 / 81 (auto/); js15 02:57 BP 120 / 65 (auto/); js15 02:57 Pulse 68 MON; Pulse Ox 93% ; js15 03:11 Pulse 66 MON; Pulse Ox 94% ; js15 03:12 BP 118 / 58 (auto/); js15 03:26 Pulse 68 MON; Pulse Ox 94% ; js15 03:27 BP 127 / 63 (auto/); js15 03:41 Pulse 66 MON; Pulse Ox 95% ; js15 03:42 BP 127 / 60 (auto/); js15 03:56 Pulse 72 MON; Pulse Ox 95% ; js15 03:57 BP 139 / 77 (auto/); js15 04:12 BP 135 / 75 (auto/); js15 04:12 Pulse 72 MON; Pulse Ox 95% ; js15 04:26 Pulse 70 MON; Pulse Ox 95% ; js15 04:27 BP 138 / 72 (auto/); js15 04:41 Pulse 68 MON; Pulse Ox 96% ; js15 04:42 BP 137 / 64 (auto/); js15 04:57 BP 147 / 70 (auto/); js15 04:58 Pulse 78 MON; Resp 20; Temp 98.0(TE); Pulse Ox 96% on R/A; js15 12/26 21:38 Body Mass Index 38.32 (114.31 kg, 172.72 cm) gr2 MDM: 12/26 21:52 Product Inspection Supervisor/Pulse Ox/q 30 min VS ordered. br1 21:52 IV Saline Lock ordered. br1 21:52 Rhythm Strip to chart ordered. br1 21:52 Undress patient appropriately for examination ordered. br1 21:52 ECG WITH READING ER PHYS+CARDIAG ordered. EDMS 21:53 B-Type Natiuretic Peptide Ordered. EDMS 21:53 Basic Metabolic Profile Ordered. EDMS 21:53 CBC with Diff Ordered. EDMS 21:53 Cardiac Injury Profile Ordered. EDMS 21:53 Troponin Ordered. EDMS 22:07 Albuterol-Ipratropium 1 neb Nebulizer every 20 minutes x3 ordered. br1 22:07 Call Respiratory ordered. br1 22:07 Solu-MEDROL 125 mg IVP once ordered. br1 22:08 Aspirin 324 mg PO once ordered. br1 22:09 Ultrasound Bilateral LE R/O DVT Ordered. EDMS 22:09 Chest, 2 View (pa\E\lat) Ordered. EDMS 22:09 PT/INR Ordered. EDMS 22:09 PTT Ordered. EDMS 22:09 Call Respiratory complete. js15 22:38 Misc. Nursing Order ordered. br1 23:31 B-Type Natiuretic Peptide Reviewed. br1 23:31 PT/INR Reviewed. br1 23:31 PTT Reviewed. br1 23:31 Ultrasound Bilateral LE R/O DVT Reviewed. br1 23:47 Basic Metabolic Profile Reviewed. br1 23:47 Cardiac Injury Profile Reviewed. br1 23:47 Troponin Reviewed. br1 23:49 CT Chest Angio R/O PE Ordered. EDMS 23:52 CBC with Diff Reviewed. br1 23:54 Financial registration complete. hs2 12/27 00:45 Ambulate Patient wth Pulse Oximetry ordered. br1 01:14 Repeat EKG (put time details section) ordered. br1 01:14 Redraw CIP &Troponin (put time in details section) ordered. br1 01:27 Repeat EKG (put time details section) complete. kb5 01:27 Redraw CIP &Troponin (put time in details section) complete. kb5 01:27 CARDIAC INJURY PROFILE Ordered. EDMS 01:27 TROPONIN Ordered. EDMS 01:28 Admit to ED Observation status ordered. br1 01:28 ELECTROCARDIOGRAM ADULT ordered. EDMS 01:41 Admit to ED Observation status complete. sls1 04:39 CARDIAC INJURY PROFILE Reviewed. br1 04:39 TROPONIN Reviewed. br1 04:39 CT Chest Angio R/O PE Reviewed. br1 05:08 [facility] was scanned into [employer] and attached to record. hs2 10:47 T-Sheet-- Draft Copy was scanned into [employer] and attached to record. gb 10:48 ECG/EKG was scanned into [employer] and attached to record. gb 10:48 Trend VS was scanned into [employer] and attached to record. gb 10:49 Radiology Report was scanned into [employer] and attached to record. gb Administered Medications: 12/26 23:00 Drug: Albuterol-Ipratropium 1 neb [ipratropium-albuterol 0.5 mg-3 mg(2.5 mg base)/3 mL dk nebulization soln (1 neb)] Route: Nebulizer; 23:25 Drug: Albuterol-Ipratropium 1 neb [ipratropium-albuterol 0.5 mg-3 mg(2.5 mg base)/3 mL dk nebulization soln (1 neb)] Route: Nebulizer; 23:40 Drug: Aspirin 324 mg [aspirin 81 mg chewable tablet (4 tabs)] Route: PO; js15 23:41 Drug: Solu-MEDROL 125 mg [Solu-Medrol 500 mg intravenous solution (125 mg)] Route: IVP; js15 Site: right antecubital; 23:45 Drug: Albuterol-Ipratropium 1 neb [ipratropium-albuterol 0.5 mg-3 mg(2.5 mg base)/3 mL dk nebulization soln (1 neb)] Route: Nebulizer; Signatures: Dispatcher [employer] EDAlma Delia Abreu, Reg Reg gb Tereso Zamudio, RN RN mlb1 Evangelist Suazo, STEWARD/STEWARDESS LOUNGE STEWARD/STEWARDESS LOUNGE kb5 Alfie Pagan MD MD br1 Gregoria Ross RN RN sls1 Anny TothRN RN js15 Socorro Madden, Reg Reg hs2 Rachael Johnson RT dk The chart was reviewed and I authenticate all verbal orders and agree with the evaluation and treatment provided.Attachments: 12/27 05:08 [facility] hs2 10:47 T-Sheet-- Draft Copy gb 10:48 ECG/EKG gb Chart Complete MTDD
--- NOTE | 2016-12-29 06:18 | EDDOCDS ---
Physician Documentation [facility] Name: Tor Terrazas Age: 81 yrs Sex: Male : 1935 Arrival Date: 12/26/2016 Time: 21:35 Bed OBSERVATION Private MD: Dennys Cobian Disposition: 12/27/16 04:52 Discharged to Home/Self Care. Impression: Chronic obstructive pulmonary disease with (acute) exacerbation. - Condition is Stable. - Discharge Instructions: Chronic Obstructive Pulmonary Disease. - Prescriptions for Prednisone 20 mg Oral Tablet - take 2 tablets by ORAL route once daily for 4 days; 8 tablet. - Medication Reconciliation, Local Pharmacy Hours form. - Follow up: Anna Garcia; When: 2 - 3 days; Reason: Recheck today's complaints. Follow up: Misael Sheppard MD; When: 2 - 3 days; Reason: Recheck today's complaints. Follow up: Your own Physician; When: 2 - 3 days; Reason: Recheck today's complaints. - Problem is new. - Symptoms are resolved. - Notes: You were seen in the ED for shortness of breath and wheezing concerning for an exacerbation of your COPD. Bloodwork along with EKG of the heart, chest Xray and CT scan showed no other acute findings. You were treated and imrpoved with breathing treatments and steroids in the ED. As you are feeling better you may return home. Call your primary doctor and Dr. Sheppard in the morning to discuss the ED visit and arrange to be seen for follow up. You may continue your breathing treatements and may take the Prednisone for 4 more days. Call your It [facility] Techn[facility] Dr. Vasquez at [facility] to discuss the chest heaviness and arrange to be seen by her for further evaluation. Return to the ED for any return of chest pain, trouble breathing, lightheadedness, loss of consciousness, fever, or any other concerns. Historical: - Allergies: no known allergies; - Home Meds: 1. Fish Oil 1200 mg Oral cap 2 tabs daily 2. spironolactone 25 mg Oral tab 1 tab 2 times per day 3. furosemide 40 mg Oral tab 1 tab 2 times per day 4. ProAir HFA 90 mcg/actuation inhalation HFAA 2 puffs every 6 hours 5. terazosin 10 mg oral cap 1 cap once daily 6. Flonase 50 mcg/actuation Nasal spsn 2 sprays once daily 7. Advair HFA 115-21 mcg/actuation inhalation HFAA 2 puffs 2 times per day 8. Restasis 0.05 % ophthalmic dpet 1 drop 2 times per day 9. Crestor 10 mg Oral tab 1 tab once daily 10. Nexium 40 mg Oral cpDR 1 cap 2 times per day 11. Spiriva with HandiHaler 18 mcg Inhl CpDv 1 cap once daily 12. Coumadin 3 mg Oral tab 2 tabs once daily 13. metoprolol succinate 50 mg Tb24 1 tab once daily 14. Nitrostat 0.4 mg SL subl 1 tab every 5 minutes as needed 15. gabapentin 600 mg Oral tab 1 tab 3 times per day 16. albuterol sulfate 2.5 mg /3 mL (0.083 %) Inhl nebu 3 mL 4 times per day 17. GI cocktail 15 mL four times a day as needed - PMHx: CAD; Atrial Fib; - PSHx: CABG; Stents, Coronary; Nephrectomy- Right; Appendectomy; - Social history: Smoking status: Patient states former smoker of tobacco. No barriers to communication noted, The patient speaks fluent Sami, Speaks appropriately for age. - Family history: Not pertinent. - : The pt / caregiver states he / she is on anticoagulants: coumadin. Home medication list is obtained from the patient. - Exposure Risk Screening:: None identified. Vital Signs: 12/26 21:38 BP 149 / 80; Pulse 80; Resp 18 S; Temp 98.0(T); Pulse Ox 97% on R/A; Weight 114.31 kg / gr2 252.01 lbs (R); Height 5 ft. 8 in. (172.72 cm) (R); Pain 7/10; 22:26 Pulse 76 MON; Pulse Ox 96% ; js15 22:27 BP 142 / 63 (auto/); js15 22:46 Pulse 76 MON; Pulse Ox 96% ; js15 22:47 BP 132 / 80 (auto/); js15 22:56 Pulse 72 MON; Pulse Ox 96% ; js15 22:57 BP 143 / 65 (auto/); js15 23:11 Pulse 70 MON; Pulse Ox 97% ; js15 23:12 BP 140 / 63 (auto/); js15 23:26 Pulse 80 MON; Pulse Ox 96% ; js15 23:27 BP 140 / 65 (auto/); js15 23:42 BP 153 / 75 (auto/); js15 23:42 Pulse 84 MON; Pulse Ox 95% ; js15 23:56 Pulse 84 MON; Pulse Ox 94% ; js15 23:57 BP 151 / 59 (auto/); 15 12/27 00:11 Pulse 84 MON; Pulse Ox 95% ; js15 00:12 BP 146 / 60 (auto/); js15 00:27 BP 129 / 60 (auto/); js15 00:27 Pulse 82 MON; Pulse Ox 93% ; js15 00:42 BP 133 / 62 (auto/); js15 00:42 Pulse 78 MON; Pulse Ox 92% ; js15 01:12 BP 133 / 70 (auto/); js15 01:12 Pulse 78 MON; Pulse Ox 95% ; js15 01:26 Pulse 78 MON; Pulse Ox 94% ; js15 01:27 BP 131 / 63 (auto/); js15 01:41 Pulse 70 MON; Pulse Ox 94% ; js15 01:42 BP 106 / 58 (auto/); js15 01:56 Pulse 70 MON; Pulse Ox 94% ; js15 01:57 BP 139 / 75 (auto/); js15 02:11 Pulse 64 MON; Pulse Ox 94% ; js15 02:12 BP 134 / 63 (auto/); js15 02:26 Pulse 68 MON; Pulse Ox 94% ; js15 02:27 BP 127 / 62 (auto/); js15 02:38 Pulse 70 MON; Pulse Ox 95% ; js15 02:42 BP 141 / 81 (auto/); js15 02:57 BP 120 / 65 (auto/); js15 02:57 Pulse 68 MON; Pulse Ox 93% ; js15 03:11 Pulse 66 MON; Pulse Ox 94% ; js15 03:12 BP 118 / 58 (auto/); js15 03:26 Pulse 68 MON; Pulse Ox 94% ; js15 03:27 BP 127 / 63 (auto/); js15 03:41 Pulse 66 MON; Pulse Ox 95% ; js15 03:42 BP 127 / 60 (auto/); js15 03:56 Pulse 72 MON; Pulse Ox 95% ; js15 03:57 BP 139 / 77 (auto/); js15 04:12 BP 135 / 75 (auto/); js15 04:12 Pulse 72 MON; Pulse Ox 95% ; js15 04:26 Pulse 70 MON; Pulse Ox 95% ; js15 04:27 BP 138 / 72 (auto/); js15 04:41 Pulse 68 MON; Pulse Ox 96% ; js15 04:42 BP 137 / 64 (auto/); js15 04:57 BP 147 / 70 (auto/); js15 04:58 Pulse 78 MON; Resp 20; Temp 98.0(TE); Pulse Ox 96% on R/A; js15 12/26 21:38 Body Mass Index 38.32 (114.31 kg, 172.72 cm) gr2 MDM: 12/26 21:52 Mechanist/Pulse Ox/q 30 min VS ordered. br1 21:52 IV Saline Lock ordered. br1 21:52 Rhythm Strip to chart ordered. br1 21:52 Undress patient appropriately for examination ordered. br1 21:52 ECG WITH READING ER PHYS+CARDIAG ordered. EDMS 21:53 B-Type Natiuretic Peptide Ordered. EDMS 21:53 Basic Metabolic Profile Ordered. EDMS 21:53 CBC with Diff Ordered. EDMS 21:53 Cardiac Injury Profile Ordered. EDMS 21:53 Troponin Ordered. EDMS 22:07 Albuterol-Ipratropium 1 neb Nebulizer every 20 minutes x3 ordered. br1 22:07 Call Respiratory ordered. br1 22:07 Solu-MEDROL 125 mg IVP once ordered. br1 22:08 Aspirin 324 mg PO once ordered. br1 22:09 Ultrasound Bilateral LE R/O DVT Ordered. EDMS 22:09 Chest, 2 View (pa\E\lat) Ordered. EDMS 22:09 PT/INR Ordered. EDMS 22:09 PTT Ordered. EDMS 22:09 Call Respiratory complete. js15 22:38 Misc. Nursing Order ordered. br1 23:31 B-Type Natiuretic Peptide Reviewed. br1 23:31 PT/INR Reviewed. br1 23:31 PTT Reviewed. br1 23:31 Ultrasound Bilateral LE R/O DVT Reviewed. br1 23:47 Basic Metabolic Profile Reviewed. br1 23:47 Cardiac Injury Profile Reviewed. br1 23:47 Troponin Reviewed. br1 23:49 CT Chest Angio R/O PE Ordered. EDMS 23:52 CBC with Diff Reviewed. br1 23:54 Financial registration complete. hs2 12/27 00:45 Ambulate Patient wth Pulse Oximetry ordered. br1 01:14 Repeat EKG (put time details section) ordered. br1 01:14 Redraw CIP &Troponin (put time in details section) ordered. br1 01:27 Repeat EKG (put time details section) complete. kb5 01:27 Redraw CIP &Troponin (put time in details section) complete. kb5 01:27 CARDIAC INJURY PROFILE Ordered. EDMS 01:27 TROPONIN Ordered. EDMS 01:28 Admit to ED Observation status ordered. br1 01:28 ELECTROCARDIOGRAM ADULT ordered. EDMS 01:41 Admit to ED Observation status complete. sls1 04:39 CARDIAC INJURY PROFILE Reviewed. br1 04:39 TROPONIN Reviewed. br1 04:39 CT Chest Angio R/O PE Reviewed. br1 05:08 [facility] [place] Payment Agreement was scanned into [employer] and attached to record. hs2 10:47 T-Sheet-- Draft Copy was scanned into [employer] and attached to record. gb 10:48 ECG/EKG was scanned into [employer] and attached to record. gb 10:48 Trend VS was scanned into [employer] and attached to record. gb 10:49 Radiology Report was scanned into [employer] and attached to record. gb Administered Medications: 12/26 23:00 Drug: Albuterol-Ipratropium 1 neb [ipratropium-albuterol 0.5 mg-3 mg(2.5 mg base)/3 mL dk nebulization soln (1 neb)] Route: Nebulizer; 23:25 Drug: Albuterol-Ipratropium 1 neb [ipratropium-albuterol 0.5 mg-3 mg(2.5 mg base)/3 mL dk nebulization soln (1 neb)] Route: Nebulizer; 23:40 Drug: Aspirin 324 mg [aspirin 81 mg chewable tablet (4 tabs)] Route: PO; js15 23:41 Drug: Solu-MEDROL 125 mg [Solu-Medrol 500 mg intravenous solution (125 mg)] Route: IVP; js15 Site: right antecubital; 23:45 Drug: Albuterol-Ipratropium 1 neb [ipratropium-albuterol 0.5 mg-3 mg(2.5 mg base)/3 mL dk nebulization soln (1 neb)] Route: Nebulizer; Signatures: Dispatcher [employer] EDAlma Delia Abreu, Reg Reg gb Tereso Zamudio, RN RN mlb1 Evangelist Suazo, WEB APPLICATION TESTER WEB APPLICATION TESTER kb5 Alfie Pagan MD MD br1 Gregoria Ross RN RN sls1 Anny TothRN RN js15 Socorro Madden, Reg Reg hs2 Rachael Johnson RT dk The chart was reviewed and I authenticate all verbal orders and agree with the evaluation and treatment provided.Attachments: 12/27 05:08 [facility] [place] Payment Agreement hs2 10:47 T-Sheet-- Draft Copy gb 10:48 ECG/EKG gb Chart Complete MTDD
--- NOTE | 2016-12-29 06:18 | EDDOCDS ---
Nurse's Notes [facility] Name: Tor Abdi Age: 81 yrs Sex: Male : 1935 Arrival Date: 12/26/2016 Time: 21:35 Bed OBSERVATION Private MD: Dennys Cobian Diagnosis: Chronic obstructive pulmonary disease with (acute) exacerbation Presentation: 12/26 21:42 Presenting complaint: Patient states: Increased SOB and muscle cramping began a week mlb1 ago, reports Pain heaviness in chest at this time. Presenting complaint:. Adult Sepsis Screening: The patient does not have new or worsening altered mentation. Patient's respiratory rate is less than 22. Adult Sepsis Screening: Systolic blood pressure is greater than 100. Patient has a qSOFA score of 0- Negative Sepsis Screen. Suicide/Homicide risk assessment- the patient denies having any suicidal and/or homicidal ideations and does not present with any other emotional, behavioral or mental health complaints. Status: Patient is not a family dinner service specialist or dependent. Transition of care: patient was not received from another setting of care. 21:42 Acuity: PATIENCE Level 2 mlb1 21:42 Method Of Arrival: Walkin/Carried/Asstd mlb1 Triage Assessment: 21:50 General: Appears in no apparent distress, Behavior is appropriate for age, cooperative. mlb1 Pain: Location: chest Pain currently is 2 out of 10 on a pain scale. Quality of pain is described as heavy. Respiratory: Onset: The symptoms/episode began/occurred gradually, Airway is patent Respiratory effort is even, labored. Historical: - Allergies: no known allergies; - Home Meds: 1. Fish Oil 1200 mg Oral cap 2 tabs daily 2. spironolactone 25 mg Oral tab 1 tab 2 times per day 3. furosemide 40 mg Oral tab 1 tab 2 times per day 4. ProAir HFA 90 mcg/actuation inhalation HFAA 2 puffs every 6 hours 5. terazosin 10 mg oral cap 1 cap once daily 6. Flonase 50 mcg/actuation Nasal spsn 2 sprays once daily 7. Advair HFA 115-21 mcg/actuation inhalation HFAA 2 puffs 2 times per day 8. Restasis 0.05 % ophthalmic dpet 1 drop 2 times per day 9. Crestor 10 mg Oral tab 1 tab once daily 10. Nexium 40 mg Oral cpDR 1 cap 2 times per day 11. Spiriva with HandiHaler 18 mcg Inhl CpDv 1 cap once daily 12. Coumadin 3 mg Oral tab 2 tabs once daily 13. metoprolol succinate 50 mg Tb24 1 tab once daily 14. Nitrostat 0.4 mg SL subl 1 tab every 5 minutes as needed 15. gabapentin 600 mg Oral tab 1 tab 3 times per day 16. albuterol sulfate 2.5 mg /3 mL (0.083 %) Inhl nebu 3 mL 4 times per day 17. GI cocktail 15 mL four times a day as needed - PMHx: CAD; Atrial Fib; - PSHx: CABG; Stents, Coronary; Nephrectomy- Right; Appendectomy; - Social history: Smoking status: Patient states former smoker of tobacco. No barriers to communication noted, The patient speaks fluent Upper Sorbian, Speaks appropriately for age. - Family history: Not pertinent. - : The pt / caregiver states he / she is on anticoagulants: coumadin. Home medication list is obtained from the patient. - Exposure Risk Screening:: None identified. Screenin:00 Screening information is obtained from the patient. Fall risk: No risks identified. js15 Assistance ADL's: requires no assistance with activities of daily living. Abuse/DV Screen: The patient / caregiver reports he/she is: not in a situation that causes fear, pain or injury. Nutritional screening: No deficits noted. Advance Directives: There is no active DNR order. home support is adequate. Assessment: 22:15 General: Appears in no apparent distress, comfortable, Behavior is appropriate for age, js15 cooperative. Pain: Denies pain. Neurological: Level of Consciousness is awake, alert, obeys commands, Oriented to person, place, time. Cardiovascular: Capillary refill < 3 seconds Heart tones S1 S2 present Rhythm is atrial fibrillation. Cardiovascular: Chest pain is denied. Respiratory: Airway is patent Respiratory effort is even, labored, Respiratory pattern is regular, symmetrical, Breath sounds with wheezes bilaterally. Reports shortness of breath. Derm: Skin is pink, warm & dry. 23:15 Reassessment: Patient appears in no apparent distress at this time. Pt resting on js15 stretcher, family at bedside, respirations even and unlabored; skin pink, warm, dry. 12/27 00:15 Reassessment: Patient appears in no apparent distress at this time. Patient denies pain js15 at this time. Patient states feeling better. Pt resting on stretcher, respirations even and unlabored; skin pink, warm, dry. 01:15 General: Appears in no apparent distress, comfortable, Behavior is appropriate for age, js15 cooperative. Pain: Denies pain. Neurological: Level of Consciousness is awake, alert, obeys commands, Oriented to person, place, time. Cardiovascular: Rhythm is atrial fibrillation. Respiratory: Airway is patent Respiratory effort is even, unlabored, Respiratory pattern is regular, symmetrical. Derm: Skin is pink, warm & dry. 02:30 Reassessment: Patient appears in no apparent distress at this time. Pt resting on js15 stretcher with eyes closed; respirations even and unlabored; skin pink, warm, dry. 03:30 Reassessment: Patient appears in no apparent distress at this time. Pt appears to be js15 sleeping; respiration even and unlabored; skin pink, warm, dry. 05:12 General: Appears in no apparent distress, comfortable, Behavior is appropriate for age, js15 cooperative. Pain: Denies pain. Neurological: Level of Consciousness is awake, alert, obeys commands, Oriented to person, place, time. Cardiovascular: Rhythm is atrial fibrillation. Respiratory: Airway is patent Respiratory effort is even, unlabored, Respiratory pattern is regular, symmetrical. Derm: Skin is pink, warm & dry. Vital Signs: 12/26 21:38 BP 149 / 80; Pulse 80; Resp 18 S; Temp 98.0(T); Pulse Ox 97% on R/A; Weight 114.31 kg gr2 (R); Height 5 ft. 8 in. (172.72 cm) (R); Pain 7/10; 22:26 Pulse 76 MON; Pulse Ox 96% ; js15 22:27 BP 142 / 63 (auto/); js15 22:46 Pulse 76 MON; Pulse Ox 96% ; js15 22:47 BP 132 / 80 (auto/); js15 22:56 Pulse 72 MON; Pulse Ox 96% ; js15 22:57 BP 143 / 65 (auto/); js15 23:11 Pulse 70 MON; Pulse Ox 97% ; js15 23:12 BP 140 / 63 (auto/); js15 23:26 Pulse 80 MON; Pulse Ox 96% ; js15 23:27 BP 140 / 65 (auto/); js15 23:42 BP 153 / 75 (auto/); js15 23:42 Pulse 84 MON; Pulse Ox 95% ; js15 23:56 Pulse 84 MON; Pulse Ox 94% ; js15 23:57 BP 151 / 59 (auto/); js15 12/27 00:11 Pulse 84 MON; Pulse Ox 95% ; js15 00:12 BP 146 / 60 (auto/); js15 00:27 BP 129 / 60 (auto/); js15 00:27 Pulse 82 MON; Pulse Ox 93% ; js15 00:42 BP 133 / 62 (auto/); js15 00:42 Pulse 78 MON; Pulse Ox 92% ; js15 01:12 BP 133 / 70 (auto/); js15 01:12 Pulse 78 MON; Pulse Ox 95% ; js15 01:26 Pulse 78 MON; Pulse Ox 94% ; js15 01:27 BP 131 / 63 (auto/); js15 01:41 Pulse 70 MON; Pulse Ox 94% ; js15 01:42 BP 106 / 58 (auto/); js15 01:56 Pulse 70 MON; Pulse Ox 94% ; js15 01:57 BP 139 / 75 (auto/); js15 02:11 Pulse 64 MON; Pulse Ox 94% ; js15 02:12 BP 134 / 63 (auto/); js15 02:26 Pulse 68 MON; Pulse Ox 94% ; js15 02:27 BP 127 / 62 (auto/); js15 02:38 Pulse 70 MON; Pulse Ox 95% ; js15 02:42 BP 141 / 81 (auto/); js15 02:57 BP 120 / 65 (auto/); js15 02:57 Pulse 68 MON; Pulse Ox 93% ; js15 03:11 Pulse 66 MON; Pulse Ox 94% ; js15 03:12 BP 118 / 58 (auto/); js15 03:26 Pulse 68 MON; Pulse Ox 94% ; js15 03:27 BP 127 / 63 (auto/); js15 03:41 Pulse 66 MON; Pulse Ox 95% ; js15 03:42 BP 127 / 60 (auto/); js15 03:56 Pulse 72 MON; Pulse Ox 95% ; js15 03:57 BP 139 / 77 (auto/); js15 04:12 BP 135 / 75 (auto/); js15 04:12 Pulse 72 MON; Pulse Ox 95% ; js15 04:26 Pulse 70 MON; Pulse Ox 95% ; js15 04:27 BP 138 / 72 (auto/); js15 04:41 Pulse 68 MON; Pulse Ox 96% ; js15 04:42 BP 137 / 64 (auto/); js15 04:57 BP 147 / 70 (auto/); js15 04:58 Pulse 78 MON; Resp 20; Temp 98.0(TE); Pulse Ox 96% on R/A; js15 12/26 21:38 Body Mass Index 38.32 (114.31 kg, 172.72 cm) gr2 Vitals: 12/26 21:38 Log In Time: December 26, 2016 at 21:38. RN notified that patient meets Red Flag gr2 criteria. ED Course: 21:37 Patient visited by Sarah Shrestha. gr2 21:37 Patient moved to Waiting gr2 21:38 Dennys Cobian is Private Physician. gr2 21:41 Patient visited by Sarah Shrestha. gr2 21:41 Patient moved to Pre RCE gr2 21:42 Patient visited by Tereso Zamudio, MAKSIM. mlb1 21:46 Triage Initiated mlb1 21:49 Patient moved to 17 ms18 21:50 Patient visited by Tereso Zamudio, RN. mlb1 21:51 Jace Pagan MD is Attending Physician. br1 22:06 Patient visited by Jace Pagan MD. br1 22:10 EKG done. (by ED staff). Reviewed by Jace Pagan MD. js15 22:15 Patient moved to Ultrasound en 22:43 Patient moved to 17 en 23:00 Inserted saline lock: 20 gauge in right antecubital area The patient tolerated the js15 procedure well. 23:04 Patient visited by Anny Toth,RN. js15 23:04 PTT Sent. js15 23:04 PT/INR Sent. js15 23:04 B-Type Natiuretic Peptide Sent. js15 23:04 Basic Metabolic Profile Sent. js15 23:04 CBC with Diff Sent. js15 23:04 Troponin Sent. js15 23:04 Cardiac Injury Profile Sent. js15 23:05 Ultrasound Bilateral LE R/O DVT Returned. EDMS 12/27 00:39 Patient visited by Anny Toth RN. js15 00:45 Patient visited by Jace Pagan MD. br1 01:04 Pt greeted and oriented to ED. Patient advised of names of staff involved in care, rs6 location of call tristan, wait times and NPO status. Accompanied by Family Member, Patient has correct armband on for positive identification. Placed in gown. Bed in low position. Call light in reach. Side rails up X 1. plant packer on. Pulse ox on. NIBP on. 01:05 ambulated pt with pulse ox monitor. Pulse ox ranged from 89-94% on room air and his rs6 heart rate ranged between 80-120 bpm. Pt denies pain, dizziness and shortness of breath. Dr. Pagan notified. 01:08 Patient visited by Sintia Royal PCA. rs6 01:08 CT Chest Angio R/O PE Returned. EDMS 01:35 Patient moved to OBSERVATION sls1 04:42 Patient visited by Jace Pagan MD. br1 04:51 Anna Garcia is Referral Physician. br1 04:51 Misael Sheppard MD is Referral Physician. br1 04:51 Your own Physician is Referral Physician. br1 05:08 [facility] Payment Agreement was scanned into [employer] and attached to record. hs2 05:12 Patient name changed from Tor\S\\S\Abdi\S\ to Tor\S\ \S\Abdi. EDMS 05:14 The patient / caregiver is instructed regarding the plan of care and ED course. js15 05:14 Discontinued IV lock intact, bleeding controlled, pressure dressing applied, No js15 redness/swelling at site. No procedures done that require assistance. 08:03 Chest, 2 View (pa\E\lat) Returned. EDMS 10:06 EKG-ADULT Returned. EDMS 10:47 T-Sheet-- Draft Copy was scanned into [employer] and attached to record. gb 10:48 ECG/EKG was scanned into [employer] and attached to record. gb 10:48 Trend VS was scanned into [employer] and attached to record. gb 10:49 Radiology Report was scanned into [employer] and attached to record. gb 13:54 ELECTROCARDIOGRAM ADULT Returned. EDMS Administered Medications: 12/26 23:00 Drug: Albuterol-Ipratropium 1 neb [ipratropium-albuterol 0.5 mg-3 mg(2.5 mg base)/3 mL dk nebulization soln (1 neb)] Route: Nebulizer; 23:25 Drug: Albuterol-Ipratropium 1 neb [ipratropium-albuterol 0.5 mg-3 mg(2.5 mg base)/3 mL dk nebulization soln (1 neb)] Route: Nebulizer; 23:40 Drug: Aspirin 324 mg [aspirin 81 mg chewable tablet (4 tabs)] Route: PO; js15 23:41 Drug: Solu-MEDROL 125 mg [Solu-Medrol 500 mg intravenous solution (125 mg)] Route: IVP; js15 Site: right antecubital; 23:45 Drug: Albuterol-Ipratropium 1 neb [ipratropium-albuterol 0.5 mg-3 mg(2.5 mg base)/3 mL dk nebulization soln (1 neb)] Route: Nebulizer; Attachments: 10:48 Trend VS gb RT: 12/26 23:46 Initial Med Neb Given as ordered Patient was instructed and evaluated on procedure dk Patient tolerated procedure well without adverse effect. Oxygen is room air. Respiratory: No deficits noted. Airway is patent Respiratory effort is even, unlabored, Respiratory pattern is regular symmetrical, Breath sounds with rales Breath sounds with wheezes at expiration. 23:47 Subsequent Med Neb Given as ordered Patient tolerated procedure well without adverse dk effect. Respiratory: Breath sounds with rales Breath sounds with wheezes at expiration. 23:47 Subsequent Med Neb Given as ordered. Respiratory: Breath sounds with rales Breath dk sounds with wheezes at expiration. Order Results: Lab Order: B-Type Natiuretic Peptide; SPEC'M 12/26/16 22:58 Test: BRAIN NATRIURETIC PEPTIDE; Value: 231; Range: <100; Abnormal: Above high normal; Units: PG/ML; Status: F Lab Order: Basic Metabolic Profile; SPEC'M 12/26/16 22:58 Test: GLUCOSE, FASTING; Value: 118; Range: 83-110; Abnormal: Above high normal; Units: MG/DL; Status: F Test: BLOOD UREA NITROGEN; Value: 17; Range: 7-18; Units: MG/DL; Status: F Test: CREATININE FOR GFR; Value: 0.85; Range: 0.70-1.30; Units: MG/DL; Status: F Test: GLOMERULAR FILTRATION RATE; Value: > 60.0; Range: >35; Status: F Test: SODIUM LEVEL; Value: 139; Range: 136-145; Units: MEQ/L; Status: F Test: POTASSIUM SERUM; Value: 3.8; Range: 3.5-5.1; Units: MEQ/L; Status: F Test: CHLORIDE LEVEL; Value: 104; Range: 98-107; Units: MEQ/L; Status: F Test: CARBON DIOXIDE LEVEL; Value: 26; Range: 21-32; Units: MEQ/L; Status: F Test: ANION GAP; Value: 9; Range: 8-16; Units: MEQ/L; Status: F Test: CALCIUM LEVEL; Value: 8.7; Range: 8.8-10.2; Abnormal: Below low normal; Units: MG/DL; Status: F Test Note: ; Units are mL/min/1.73 m2 Chronic Kidney Disease Staging per NKF: Stage I & II GFR >=60 Normal to Mildly Decreased Stage III GFR 30-59 Moderately Decreased Stage IV GFR 15-29 Severely Decreased Stage V GFR <15 Very Little GFR Left ESRD GFR <15 on EARTH SCIENCE TECHNICAL OFFICER Lab Order: CBC with Diff; SPEC'M 12/26/16 22:58 Test: WHITE BLOOD COUNT; Value: 6.0; Range: 4.0-10.0; Units: K/mm3; Status: F Test: RED BLOOD COUNT; Value: 4.11; Range: 4.30-6.10; Abnormal: Below low normal; Units: M/mm3; Status: F Test: HEMOGLOBIN; Value: 12.8; Range: 14.0-18.0; Abnormal: Below low normal; Units: g/dl; Status: F Test: HEMATOCRIT; Value: 39.0; Range: 42.0-52.0; Abnormal: Below low normal; Units: %; Status: F Test: MEAN CORPUSCULAR VOLUME; Value: 94.8; Range: 80.0-96.0; Units: fl; Status: F Test: MEAN CORPUSCULAR HEMOGLOBIN; Value: 31.1; Range: 27.0-33.0; Units: pg; Status: F Test: MEAN CORPUSCULAR HGB CONC; Value: 32.7; Range: 32.0-36.5; Units: g/dl; Status: F Test: RED CELL DISTRIBUTION WIDTH; Value: 14.9; Range: 11.5-14.5; Abnormal: Above high normal; Units: %; Status: F Test: PLATELET COUNT, AUTOMATED; Value: 77; Range: 150-450; Abnormal: Below low normal; Units: k/mm3; Status: F Test: NEUTROPHILS %; Value: 73.1; Range: 36.0-66.0; Abnormal: Above high normal; Units: %; Status: F Test: LYMPH %; Value: 11.1; Range: 24.0-44.0; Abnormal: Below low normal; Units: %; Status: F Test: MONO %; Value: 10.0; Range: 0.0-5.0; Abnormal: Above high normal; Units: %; Status: F Test: EOS %; Value: 3.0; Range: 0.0-3.0; Units: %; Status: F Test: BASO %; Value: 0.4; Range: 0.0-1.0; Units: %; Status: F Test: LARGE UNSTAINED CELL %; Value: 2.5; Range: 0.0-4.0; Units: %; Status: F Test: NEUTROPHILS #; Value: 4.4; Range: 1.8-7.7; Units: K/mm3; Status: F Test: LYMPH #; Value: 0.8; Range: 1.5-4.5; Abnormal: Below low normal; Units: K/mm3; Status: F Test: MONO #; Value: 0.6; Range: 0.0-0.8; Units: K/mm3; Status: F Test: EOS #; Value: 0.2; Range: 0.0-0.50; Units: K/mm3; Status: F Test: BASO #; Value: 0.0; Range: 0.0-0.2; Units: K/mm3; Status: F Test: LARGE UNSTAINED CELL #; Value: 0.2; Range: 0.0-0.4; Units: K/mm3; Status: F Lab Order: Cardiac Injury Profile; SPEC'M 12/26/16 22:58 Test: CPK CREATINE PHOSPHOKINASE; Value: 117; Range: 39-308; Units: U/L; Status: F Test: CK-MB VALUE MASS; Value: 1.2; Range: 0.0-3.6; Units: NG/ML; Status: F Test: MB/CK RELATIVE INDEX; Value: 1.02; Range: < OR =4; Status: F Test Note: ; DIAGNOSIS CRITERIA MMB ng/ml Relative Index (RI) NON-AMI < or = 5 N/A PRIETO ZONE > 5 < or = 4 AMI > 5 > 4 Lab Order: Troponin; [facility] 12/26/16 22:58 Test: TROPONIN I; Value: < 0.02; Range: < 0.10; Units: NG/ML; Status: F Test Note: ; Troponin I Reference Interval for Carbon Ads LOCI: 99th Percentile= 0.00-0.045 ng/ml Risk Stratification: <= 0.10 ng/ml Decreased Risk for Adverse Clinical Events. 0.10-1.50 ng/ml Increased Risk for Adverse Clinical Events. Evaluation of additional criterion and/or repeat testing in 2-6 hours is suggested to rule out myocardial damage. >= 1.50 ng/ml Indicative of Myocardial Injury. Lab [facility] Test: PROTHROMBIN TIME; Value: 25.5; Range: 12.3-14.5; Abnormal: Above high normal; Units: SECONDS; Status: F Test: INR; Value: 2.32; Status: F Test Note: ; THERAPUTIC HUMAN INR VALUES INDICATIONS NORMAL RANGES PROPHYLAXIS/TREATMENT OF: VENOUS THROMBOSIS 2.0-3.0 PULMONARY EMBOLISM 2.0-3.0 PREVENTION OF SYSTEMIC EMBOLISM FROM: TISSUE HEART VALVES 2.0-3.0 ACUTE MYOCARDIAL INFARCTION 2.0-3.0 VALVULAR HEART DISEASE 2.0-3.0 ATRIAL FIBRILLATION 2.0-3.0 MECHANICAL VALVES(HIGH RISK) 2.5-3.5 RECURRENT MYOCARDIAL INFARCTION 2.5-3.5 Lab Order: PTT; [facility] 12/26/16 22:58 Test: PARTIAL THROMBOPLASTIN TIME; Value: 65.4; Range: 26.6-37.1; Abnormal: Above high normal; Units: SECONDS; Status: F Lab Order: CARDIAC INJURY PROFILE; SPEC'M 12/27/16 04:03 Test: CPK CREATINE PHOSPHOKINASE; Value: 107; Range: 39-308; Units: U/L; Status: F Test: CK-MB VALUE MASS; Value: 1.1; Range: 0.0-3.6; Units: NG/ML; Status: F Test: MB/CK RELATIVE INDEX; Value: 1.02; Range: < OR =4; Status: F Test Note: ; DIAGNOSIS CRITERIA MMB ng/ml Relative Index (RI) NON-AMI < or = 5 N/A PRIETO ZONE > 5 < or = 4 AMI > 5 > 4 Lab Order: TROPONIN; SPEC'M 12/27/16 04:03 Test: TROPONIN I; Value: < 0.02; Range: < 0.10; Units: NG/ML; Status: F Test Note: ; Troponin I Reference Interval for Carbon Ads LOCI: 99th Percentile= 0.00-0.045 ng/ml Risk Stratification: <= 0.10 ng/ml Decreased Risk for Adverse Clinical Events. 0.10-1.50 ng/ml Increased Risk for Adverse Clinical Events. Evaluation of additional criterion and/or repeat testing in 2-6 hours is suggested to rule out myocardial damage. >= 1.50 ng/ml Indicative of Myocardial Injury. 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; : 1935 Requested By: JACE Lemus; Order Number: [id number] Reading MD: Elsa Ríos; Measurements; Intervals [place]; Rate: 79 P:; WI: 0 QRS: 93; QRSD: 164 T: 29; QT: 416; QTc: 480; Interpretive Statements; ATRIAL FIBRILLATION; RIGHT BUNDLE BRANCH BLOCK; SIMILAR 11/02/15; Electronically Signed On 12-27-2016 10:04:16 EST by Elsa Ríos; Radiology Order: Chest, 2 View (pa\E\lat) Test: Chest, 2 View (pa\E\lat) REASON FOR EXAMINATION: Shortness of Breath; Clinical: Shortness of breath.; ; Technique: PA and lateral.; ; Comparison: 10/29/2015.; ; Findings:; Mediastinum and cardiac silhouette are stable - sternotomy and CABG again noted.; The lung dexter demonstrate diffuse chronic changes primarily involving the lower; lung dexter. No obvious acute consolidation, effusion, or pneumothorax.; Skeletal structures intact.; ; Impression:; Chronic stable changes. No obvious acute cardiopulmonary process.; ; ; Signed by; Vitor Martinez MD 12/27/2016 07:42 A; Radiology Order: Ultrasound Bilateral LE R/O DVT Test: Ultrasound Bilateral LE R/O DVT REASON FOR EXAMINATION: Deformity/Swelling; ; Clinical history: Pain, swelling.; Findings: The common femoral, superficial femoral, popliteal, and other deep venous structures compre; ss normally and demonstrate normal color Doppler flow. Normal venous waveforms with augmentation are; seen.; Impression:; No evidence of deep vein thrombosis in either femoral popliteal venous system.; ; Radiology Order: CT Chest Angio R/O PE Test: CT Chest Angio R/O PE REASON FOR EXAMINATION: Chest Pain; ; CT angiogram of the chest; Clinical statement: Chest pain and shortness of breath.; Technique: Multiple axial CT images were obtained from the thoracic inlet through the upper abdomen a; fter a bolus administration of nonionic intravenous contrast. Coronal and sagittal reconstructions we; re also obtained.; No comparison is available.; Findings: The pulmonary arteries are well-opacified with contrast, with no intraluminal filling defec; ts to suggest embolism. The thoracic aorta is unremarkable. Thyroid gland is within normal limits. Th; ere is no thoracic lymphadenopathy. There are no pericardial or pleural effusions. The lungs are home; r. Limited imaging of the upper abdomen is unremarkable. There are no suspicious osseous lesions.; Impression: Unremarkable CT examination of the chest. 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 br1 05:14 Discharge Assessment: Patient awake, alert and oriented x 3. No cognitive and/or js15 functional deficits noted. Patient verbalized understanding of disposition instructions. patient administered narcotics - no. The following High Risk Discharge criteria are identified: None. Discharged to home ambulatory, with family. Condition: improved. Discharge instructions given to patient, Instructed on discharge instructions, follow up and referral plans. medication usage, Demonstrated understanding of instructions, medications, Pt was receptive of discharge instructions/ teaching. Prescriptions given X 1. CT Study completed. Ultrasound Study completed. Property sent home with patient. 05:17 Patient left the ED. js15 Signatures: Dispatcher [employer] EDMS Alma Delia Ahumada, Reg Reg gb Tereso Zamudio, RN RN mlb1 Rachael Johnson,RT RT Jace Herrera MD MD br1 Gregoria Ross, RN RN sls1 Sarah Shrestha gr2 Funmilayo Singh,MAKSIM RN [id number] Sintia Royal, CHIEF [employer] DIV[employer]IEF [employer] rs6 Anny Toth,MAKSIM RN js15 Cahro Stephens Hillary, Reg Reg hs2 Chart Complete MTDD
== END 2016-12-27 05:17 | disposition home or self-care (01) ==
LOC: M ED 21:35
DX: J44.1 Chronic obstructive pulmonary disease with (acute) exacerbation (principal); I25.10 Atherosclerotic heart disease of native coronary artery without angina pectoris; I48.91 Unspecified atrial fibrillation; Z95.1 Presence of aortocoronary bypass graft; Z98.61 Coronary angioplasty status; Z87.891 Personal history of nicotine dependence; Z79.01 Long term (current) use of anticoagulants; Z92.240 Personal history of inhaled steroid therapy; Z79.899 Other long term (current) drug therapy
CPT/HCPCS: 71020; 71275; 80048; 82550; 82553; 83880; 84484; 85025; 85610; 85730; 93005; 93041; 93970; 94640; 96374; 99285; J2930; Q9967

== ENCOUNTER → 2017-05-24 | Outpatient (REF) | payer MEDICARE, BC ==
[~2017-05-24] MED LIST changes: +CRES10TA32 PO; -DOCU100C PO; +DOCU100C16 PO; -PROA1AER INH; +PROAAER10 INH; -ROSU10TA PO; +SALI0.6523; -SALI0.653
== END ==
LOC: M LAB REF 17:20
PROVIDERS: ATTEND Internal Medicine Medical Oncology
DX: D69.3 Immune thrombocytopenic purpura (principal)

== ENCOUNTER 2017-07-15 17:45 | Emergency (ER) | payer BC, MEDICARE ==
[~2017-07-15] VITALS: Ht 172.7 cm; Wt 100.0 kg
[2017-07-15 19:02] LABS: BASO % 0.8 % (0.0-1.0); EOS # 0.2 K/mm3 (0.0-0.50); EOS % 3.4 % (0.0-3.0); LARGE UNSTAINED CELL # 0.2 K/mm3 (0.0-0.4); LARGE UNSTAINED CELL % 2.4 % (0.0-4.0); LYMPH # 1.7 K/mm3 (1.5-4.5); LYMPH % 24.6 % (24.0-44.0); MEAN CORPUSCULAR HEMOGLOBIN 31.4 pg (27.0-33.0); MEAN CORPUSCULAR HGB CONC 32.7 g/dl (32.0-36.5); MEAN CORPUSCULAR VOLUME 95.9 fl (80.0-96.0); MONO # 0.5 K/mm3 (0.0-0.8); MONO % 8.2 % (0.0-5.0); NEUTROPHILS # 3.9 K/mm3 (1.8-7.7); NEUTROPHILS % 60.6 % (36.0-66.0); PLATELET COUNT, AUTOMATED 101 k/mm3 (150-450); RED CELL DISTRIBUTION WIDTH 15.2 % (11.5-14.5); WHITE BLOOD COUNT 6.4 K/mm3 (4.0-10.0)
[2017-07-15 19:10] LABS: INR 2.09
[2017-07-15 19:42] LABS: ALBUMIN 3.3 GM/DL (3.2-5.2); ALBUMIN/GLOBULIN RATIO 0.63 (1.00-1.93); ALKALINE PHOSPHATASE 99 U/L (45-117); ALT/SGPT 21 U/L (12-78); AMYLASE 53 U/L (25-115); ANION GAP 6 MEQ/L (8-16); AST/SGOT 27 U/L (15-37); BILIRUBIN,DIRECT 0.2 MG/DL (0.0-0.2); BLOOD UREA NITROGEN 12 MG/DL (7-18); CALCIUM LEVEL 9.5 MG/DL (8.8-10.2); CARBON DIOXIDE LEVEL 27 MEQ/L (21-32); CHLORIDE LEVEL 104 MEQ/L (98-107); CREATININE FOR GFR 0.84 MG/DL (0.70-1.30); GLOMERULAR FILTRATION RATE > 60.0 (>35); GLUCOSE, FASTING 93 MG/DL (83-110); POTASSIUM SERUM 3.7 MEQ/L (3.5-5.1); SODIUM LEVEL 137 MEQ/L (136-145); TOTAL PROTEIN 8.5 GM/DL (6.4-8.2)
[2017-07-15 20:50] VITALS: BP 139/73
--- NOTE | 2017-07-15 21:06 | REP ---
Clinical: Acute generalized abdominal pain. Comparison: 10/29/2015. Findings: Lung bases demonstrate bronchiectasis and chronic age-related interstitial changes. Atherosclerotic changes to the coronary arteries noted. Liver, spleen, pancreas, bilateral adrenal glands and solitary left kidney are normal / stable. Chronic perinephric stranding is again identified and unchanged and without evidence for hydronephrosis. Cholelithiasis noted without CT evidence for acute cholecystitis. The enteric system demonstrates scattered diverticulosis without evidence for diverticulitis, obstruction or acute inflammatory process. Normal terminal ileum identified in the right lower quadrant with evidence for prior appendectomy. Pelvis demonstrates collapsed bladder and age appropriate prostate gland with parenchymal calcifications again noted. No ascites. No free air. No significant intraperitoneal or retroperitoneal adenopathy. No mass lesion. Atherosclerotic changes of the vasculature noted without aneurysm. Musculoskeletal structures demonstrate degenerative changes without focal osseous abnormality. Impression: 1. No acute abdominopelvic pathology appreciated. 2. Cholelithiasis. 3. Diverticulosis without acute diverticulitis or acute enteric process. 4. Collapsed bladder cannot exclude wall thickening. 5. Atherosclerotic changes to the vasculature and degenerative changes of the musculoskeletal structures. Signed by Vitor Martinez MD 07/15/2017 08:58 P
--- NOTE | 2017-07-16 07:05 | ED PDOC ---
Post-Departure Follow-Up radiology report faxed to Elsa Stephens MD Jul 16, 2017 07:05
== END 2017-07-15 21:22 | disposition home or self-care (01) ==
LOC: M ED 17:45
DX: K80.20 Calculus of gallbladder without cholecystitis without obstruction (principal); R10.84 Generalized abdominal pain; Z87.891 Personal history of nicotine dependence; Z79.899 Other long term (current) drug therapy; Z79.01 Long term (current) use of anticoagulants

== ENCOUNTER 2017-10-01 17:17 | Emergency (ER) | payer MEDICARE ==
[~2017-10-01] VITALS: Ht 172.7 cm; Wt 108.2 kg
[2017-10-01 18:14] LABS: BASO % 0.8 % (0.0-1.0); EOS # 0.1 10^3/uL (0.0-0.50); EOS % 2.7 % (0.0-3.0); IMMATURE GRANULOCYTE % 0.2 % (0-0); LYMPH # 1.2 10^3/uL (1.5-4.5); MEAN CORPUSCULAR HEMOGLOBIN 31.1 pg (27.0-33.0); MEAN CORPUSCULAR HGB CONC 32.5 g/dl (32.0-36.5); MEAN CORPUSCULAR VOLUME 95.5 fl (80.0-96.0); MONO # 0.6 10^3/uL (0.0-0.8); MONO % 11.3 % (0.0-5.0); NEUTROPHILS # 3.1 10^3/uL (1.8-7.7); RED CELL DISTRIBUTION WIDTH 15.3 % (11.5-14.5); WHITE BLOOD COUNT 5.1 10^3/uL (4.0-10.0)
[2017-10-01 18:19] LABS: PLATELET COUNT, AUTOMATED 68 10^3/uL (150-450)
[2017-10-01 18:20] LABS: IMMATURE PLATELET FRACTION % 9.8 % (0.0-10.9)
[2017-10-01 18:26] LABS: INR 1.38
[2017-10-01] MEDS ORDERED: NS 500 ML IV ONE (18:30)
[2017-10-01 18:43] LABS: ALBUMIN 3.5 GM/DL (3.2-5.2); ALBUMIN/GLOBULIN RATIO 0.74 (1.00-1.93); ALKALINE PHOSPHATASE 81 U/L (45-117); ALT/SGPT 15 U/L (12-78); ANION GAP 10 MEQ/L (8-16); AST/SGOT 17 U/L (7-37); BILIRUBIN,DIRECT 0.5 MG/DL (0.0-0.2); BILIRUBIN,TOTAL 1.5 MG/DL (0.2-1.0); BLOOD UREA NITROGEN 13 MG/DL (7-18); CALCIUM LEVEL 9.5 MG/DL (8.8-10.2); CARBON DIOXIDE LEVEL 24 MEQ/L (21-32); CHLORIDE LEVEL 106 MEQ/L (98-107); CREATININE FOR GFR 0.86 MG/DL (0.70-1.30); GLOMERULAR FILTRATION RATE > 60.0 (>35); GLUCOSE, FASTING 81 MG/DL (83-110); POTASSIUM SERUM 3.6 MEQ/L (3.5-5.1); SODIUM LEVEL 140 MEQ/L (136-145); TOTAL PROTEIN 8.2 GM/DL (6.4-8.2)
--- NOTE | 2017-10-01 18:43 | ECGEPIP ---
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
[2017-10-01] MEDS ORDERED: MORPHINE 2 MG/ML 1ML SYRINGE IV ONE (18:45)
[2017-10-01] MEDS ORDERED: ONDANSETRON 4MG/2ML VIAL (J2405) IV ONE (18:45)
--- NOTE | 2017-10-01 19:37 | REP ---
Scrotal sonography: History: Bilateral testicular pain. Findings: There is no evidence of intratesticular mass lesion on either side. Right testicular dimensions are 4.0 x 2.1 x 2.6 cm. Left testis measures 3.8 x 1.8 x 2.9 cm. Epididymi are symmetric. There is a 0.3 cm cyst in the right epididymis. There is a 0.3 cm cyst in the left epididymis. Testicular Doppler flow is normal bilaterally. The right testis displays a resistive index of 0.52 and the left 0.54. There is a left-sided varicocele. Study is otherwise unremarkable. Impression: Left-sided varicocele. Normal Doppler flow to both testes. Small bilateral epididymal cysts. Signed by Vlad Driver MD 10/01/2017 08:35 P
--- NOTE | 2017-10-01 19:38 | REP ---
Chest x-ray: Two views. History: Abdomen pain. Comparison study: December 26, 2016. Findings: The patient is status post prior median sternotomy. There is some linear fibrosis in the left base. The pleural angles are sharp. Lung dexetr are otherwise clear. Cardiomediastinal silhouette is otherwise unremarkable. Pulmonary vasculature is not increased. There are degenerative changes in the thoracic spine. Impression: Linear fibrosis left base. Prior sternotomy. Otherwise no acute disease. Signed by Vlad Driver MD 10/01/2017 08:35 P
[2017-10-01] MEDS ORDERED: ISOVUE-370 76% 100ML VIAL (Q9967) As Ordered ONE (20:25)
--- NOTE | 2017-10-01 21:00 | REPUSA ---
CT of the abdomen and pelvis with contrast Clinical statement: Pain. Technique: Multiple axial CT images were obtained from the base of the lungs through the floor of the pelvis utilizing 5 mm axial slices after administration of nonionic intravenous contrast. Coronal an d sagittal reconstructions were also obtained. Comparison: 07/15/2017. Findings: Chest: The visualized lung bases are clear. Abdomen: The spleen, pancreas, left kidney, and adrenal glands are unremarkable. The right kidney is absent. A 3 mm gallstone is seen within the gallbladder. There is mild nodularity to the hepatic cont our. Diffuse low attenuation of hepatic parenchyma is noted. No focal hepatic masses identified. The aorta is within normal limits. There is no evidence of abdominal lymphadenopathy or ascites. Pelvis: There is mild sigmoid diverticulosis without evidence of diverticulitis. The bowel is otherwi se unremarkable, with no obstructive or inflammatory changes. The urinary bladder is within normal li mits. The other pelvic structures appear grossly intact. There is no evidence of pelvic lymphadenopat hy or ascites. Bones: There are no suspicious osseous abnormalities seen. Impression: 1. Mild sigmoid diverticulosis without evidence of diverticulitis. No obstructive or inflammatory bow el changes. 2. Mild cirrhotic changes to the liver. Fatty infiltration of the liver. No focal hepatic masses iden tified. 3. The left kidney is unremarkable. The right kidney is absent.
[2017-10-01] MEDS ORDERED: HYOSCYAMINE SULFATE 0.125 MG SUBL TABLET PO ONE (22:15)
--- NOTE | 2017-10-01 22:50 | REPUSA ---
Clinical history: Right upper quadrant pain. Findings: The pancreas is limited in visualization secondary to overlying bowel gas, but appears stephanie sly unremarkable. The liver demonstrates uniform echotexture and echogenicity, with no mass lesions. The gallbladder contains a 1.3 cm gallstone. There is no gallbladder wall thickening. The common bile duct measures 6 mm and is within normal limits. The patient is status post right nephrectomy. There is no ascites. Impression: Cholelithiasis without evidence of acute cholecystitis.
[2017-10-02] MEDS ORDERED: PERC5TAB12 PO (01:15)
[2017-10-02] MEDS ORDERED: ZOFR4TAB3 PO (01:15)
[2017-10-02] MEDS ORDERED: HYOS1TAB PO (01:15)
[2017-10-02] MEDS ORDERED: OXYCODONE/APAP 5MG/325MG(BULK FOR ED) 1 TABLET PO ONE (01:30)
[2017-10-02 01:36] VITALS: BP 156/82; O2SAT 93
== END 2017-10-02 01:37 | disposition home or self-care (01) ==
LOC: M ED 17:17
DX: R10.9 Unspecified abdominal pain (principal); K80.70 Calculus of gallbladder and bile duct without cholecystitis without obstruction; I10 Essential (primary) hypertension; J45.909 Unspecified asthma, uncomplicated; E78.70 Disorder of bile acid and cholesterol metabolism, unspecified; Z79.01 Long term (current) use of anticoagulants; Z79.899 Other long term (current) drug therapy
CPT/HCPCS: 71020; 74177; 76705; 76870; 80048; 80076; 81001; 82550; 82553; 83605; 83690; 84484; 85025; 85049; 85055; 85610; 85730; 87040; 87088; 87186; 93005; 93976; 96374; 96375; 99284; J2405; Q9967

== ENCOUNTER 2017-11-17 03:45 | Emergency (ER) | payer MEDICARE ==
[2017-11-17] MEDS: ASPIRIN 325 MG TAB PO (04:29)
[2017-11-17 04:42] LABS: BASO % 0.7 % (0.0-1.0); EOS # 0.1 10^3/uL (0.0-0.50); EOS % 2.2 % (0.0-3.0); HEMATOCRIT 37.1 % (42.0-52.0); HEMOGLOBIN 12.1 g/dl (14.0-18.0); IMMATURE GRANULOCYTE % 0.2 % (0-0); LYMPH # 1.2 10^3/uL (1.5-4.5); LYMPH % 27.1 % (24.0-44.0); MEAN CORPUSCULAR HEMOGLOBIN 30.9 pg (27.0-33.0); MEAN CORPUSCULAR HGB CONC 32.6 g/dl (32.0-36.5); MEAN CORPUSCULAR VOLUME 94.9 fl (80.0-96.0); MONO # 0.6 10^3/uL (0.0-0.8); MONO % 12.6 % (0.0-5.0); NEUTROPHILS # 2.6 10^3/uL (1.8-7.7); NEUTROPHILS % 57.2 % (36.0-66.0); RED BLOOD COUNT 3.91 10^6/uL (4.30-6.10); RED CELL DISTRIBUTION WIDTH 15.3 % (11.5-14.5); WHITE BLOOD COUNT 4.5 10^3/uL (4.0-10.0)
[2017-11-17 04:52] LABS: INR 2.21; PROTHROMBIN TIME 25.3 SECONDS (12.4-14.5)
[2017-11-17 05:06] LABS: ALBUMIN 3.4 GM/DL (3.2-5.2); ALBUMIN/GLOBULIN RATIO 0.71 (1.00-1.93); ALKALINE PHOSPHATASE 98 U/L (45-117); ALT/SGPT 11 U/L (12-78); AMYLASE 43 U/L (25-115); ANION GAP 6 MEQ/L (8-16); AST/SGOT 19 U/L (7-37); BILIRUBIN,DIRECT 0.3 MG/DL (0.0-0.2); BILIRUBIN,TOTAL 1.1 MG/DL (0.2-1.0); BLOOD UREA NITROGEN 14 MG/DL (7-18); CALCIUM LEVEL 9.2 MG/DL (8.8-10.2); CARBON DIOXIDE LEVEL 29 MEQ/L (21-32); CHLORIDE LEVEL 105 MEQ/L (98-107); CK-MB VALUE MASS 1.3 NG/ML (0.0-3.6); CPK CREATINE PHOSPHOKINASE 93 U/L (39-308); CREATININE FOR GFR 0.88 MG/DL (0.70-1.30); GLOMERULAR FILTRATION RATE > 60.0 (>35); GLUCOSE, FASTING 98 MG/DL (83-110); LIPASE 174 U/L (73-393); MB/CK RELATIVE INDEX 1.39 (< OR =4); POTASSIUM SERUM 3.4 MEQ/L (3.5-5.1); SODIUM LEVEL 140 MEQ/L (136-145); TOTAL PROTEIN 8.2 GM/DL (6.4-8.2); TROPONIN I < 0.02 NG/ML (< 0.10)
[2017-11-17 05:19] LABS: PLATELET COUNT, AUTOMATED 75 10^3/uL (150-450)
[2017-11-17 05:20] LABS: IMMATURE PLATELET FRACTION % 10.2 % (0.0-10.9)
[2017-11-17] MEDS ORDERED: ISOVUE-370 76% 100ML VIAL (Q9967) As Ordered (05:38)
[2017-11-17 10:42] LABS: CK-MB VALUE MASS 1.6 NG/ML (0.0-3.6); CPK CREATINE PHOSPHOKINASE 86 U/L (39-308); MB/CK RELATIVE INDEX 1.86 (< OR =4); TROPONIN I < 0.02 NG/ML (< 0.10)
== END 2017-11-17 11:13 | disposition home or self-care (01) ==
LOC: M ED 03:45
DX: K80.20 Calculus of gallbladder without cholecystitis without obstruction (principal); R07.9 Chest pain, unspecified; I48.91 Unspecified atrial fibrillation; I45.10 Unspecified right bundle-branch block; I25.10 Atherosclerotic heart disease of native coronary artery without angina pectoris; J44.9 Chronic obstructive pulmonary disease, unspecified; Z79.51 Long term (current) use of inhaled steroids; Z79.84 Long term (current) use of oral hypoglycemic drugs; Z79.899 Other long term (current) drug therapy; Z87.19 Personal history of other diseases of the digestive system; Z95.1 Presence of aortocoronary bypass graft
CPT/HCPCS: Q9967

== ENCOUNTER → 2017-11-19 | Outpatient (REF) | payer MEDICARE | LOC: M LAB REF 19:24 | DX: L82.1 Other seborrheic keratosis (principal) | CPT/HCPCS: 88305 ==

== ENCOUNTER → 2017-12-19 | Outpatient (REF) | payer MEDICARE ==
[2017-12-20 12:56] LABS: VITAMIN B12 LEVEL 403 PG/ML (247-911)
== END ==
LOC: M LAB REF 12:29
DX: R20.0 Anesthesia of skin (principal)
CPT/HCPCS: 82607

== ENCOUNTER → 2018-03-22 | Outpatient (REF) | payer MEDICARE ==
[2018-03-22 18:29] LABS: PROTHROMBIN TIME 19.5 SECONDS (12.4-14.5)
[2018-03-22 22:02] LABS: ALPHA FETOPROTEIN TUMOR QUANT < 1.3 NG/ML (<8.1)
[2018-03-22 22:02] LABS: TOTAL 25(OH) VITAMIN D 28.5 NG/ML (30.0-100.0)
== END ==
LOC: M LAB REF 16:54
DX: K44.9 Diaphragmatic hernia without obstruction or gangrene (principal); K21.9 Gastro-esophageal reflux disease without esophagitis; K75.4 Autoimmune hepatitis; K80.20 Calculus of gallbladder without cholecystitis without obstruction
CPT/HCPCS: 82306

== ENCOUNTER → 2018-04-11 | Outpatient (REF) | payer MEDICARE ==
[2018-04-11 20:40] LABS: APPEARANCE, URINE HAZY (CLEAR); BACTERIA, URINE AUTO NEGATIVE (NEGATIVE); BILIRUBIN, URINE AUTO NEGATIVE (NEGATIVE); BLOOD, URINE BLOOD NEGATIVE (NEGATIVE); CALCIUM OXALATE CRYSTALS MODERATE; COLOR, URINE AMBER (YELLOW); GLUCOSE, URINE (UA) AUTO NEGATIVE (NEGATIVE); KETONE, URINE AUTO NEGATIVE (NEGATIVE); LEUKOCYTE ESTERASE, URINE AUTO NEGATIVE (NEGATIVE); MUCUS, URINE SMALL (NEGATIVE); NITRITE, URINE AUTO NEGATIVE (NEGATIVE); PROTEIN, URINE AUTO 2+ mg/dL (NEGATIVE); RBC, URINE AUTO 0 /HPF (0-3); SPECIFIC GRAVITY URINE AUTO 1.021 (1.002-1.035); SQUAMOUS EPITHELIAL CELL UR AU 0 /HPF (0-6); WBC, URINE AUTO 2 /HPF (0-3)
== END ==
LOC: M LAB REF 16:51
DX: R31.9 Hematuria, unspecified (principal)
CPT/HCPCS: 81001

== ENCOUNTER → 2018-05-24 | Outpatient (REF) | payer MEDICARE ==
[2018-05-24 18:22] LABS: TOTAL PROTEIN,RANDOM URINE 85.7 MG/DL (0.0-12.0)
== END ==
LOC: M LAB REF 17:01
DX: R80.9 Proteinuria, unspecified (principal)
CPT/HCPCS: 82570

== ENCOUNTER → 2018-06-19 | Outpatient (REF) | payer MEDICARE | LOC: M LAB REF 17:13 | DX: J44.9 Chronic obstructive pulmonary disease, unspecified (principal) | CPT/HCPCS: 87205 ==

== ENCOUNTER → 2018-06-20 | Outpatient (CLI) | payer MEDICARE ==
[2018-06-20 19:04] LABS: HEMATOCRIT 38.5 % (42.0-52.0); HEMOGLOBIN 12.4 g/dl (13.5-17.5); MEAN CORPUSCULAR HEMOGLOBIN 32.1 pg (27.0-33.0); MEAN CORPUSCULAR HGB CONC 32.2 g/dl (32.0-36.5); MEAN CORPUSCULAR VOLUME 99.7 fl (80.0-96.0); RED BLOOD COUNT 3.86 10^6/uL (4.30-6.10); RED CELL DISTRIBUTION WIDTH 16.9 % (11.5-14.5)
[2018-06-20 19:27] LABS: ALBUMIN 3.1 GM/DL (3.2-5.2); ALBUMIN/GLOBULIN RATIO 0.66 (1.00-1.93); ALKALINE PHOSPHATASE 101 U/L (45-117); ALT/SGPT 22 U/L (12-78); ANION GAP 6 MEQ/L (8-16); AST/SGOT 25 U/L (7-37); BILIRUBIN,DIRECT 0.2 MG/DL (0.0-0.2); BILIRUBIN,TOTAL 0.6 MG/DL (0.2-1.0); BLOOD UREA NITROGEN 16 MG/DL (7-18); CALCIUM LEVEL 8.9 MG/DL (8.8-10.2); CARBON DIOXIDE LEVEL 26 MEQ/L (21-32); CHLORIDE LEVEL 111 MEQ/L (98-107); GLOMERULAR FILTRATION RATE > 60.0 (>35); GLUCOSE, FASTING 72 MG/DL (70-100); MAGNESIUM LEVEL 1.9 MG/DL (1.8-2.4); SODIUM LEVEL 143 MEQ/L (136-145); TOTAL PROTEIN 7.8 GM/DL (6.4-8.2)
[2018-06-20 19:33] LABS: TOTAL 25(OH) VITAMIN D 30.3 NG/ML (30.0-100.0)
[2018-06-20 19:34] LABS: PLATELET COUNT, AUTOMATED 74 10^3/uL (150-450)
[2018-06-21 10:19] LABS: ALPHA FETOPROTEIN TUMOR QUANT 1.3 NG/ML (<8.1)
== END ==
LOC: M LAB 18:07
DX: K75.4 Autoimmune hepatitis (principal); K74.60 Unspecified cirrhosis of liver; K80.20 Calculus of gallbladder without cholecystitis without obstruction; K44.9 Diaphragmatic hernia without obstruction or gangrene; K21.9 Gastro-esophageal reflux disease without esophagitis; K57.30 Diverticulosis of large intestine without perforation or abscess without bleeding; R13.10 Dysphagia, unspecified; K22.2 Esophageal obstruction; M46.99 Unspecified inflammatory spondylopathy, multiple sites in spine; Z80.0 Family history of malignant neoplasm of digestive organs; Z86.010 Personal history of colon polyps; Z51.81 Encounter for therapeutic drug level monitoring; Z79.899 Other long term (current) drug therapy
CPT/HCPCS: 82248

== ENCOUNTER → 2018-06-20 | Outpatient (CLI) | payer MEDICARE ==
[2018-06-20 19:03] LABS: BASO % 0.4 % (0.0-1.0); EOS # 0.2 10^3/uL (0.0-0.50); EOS % 3.1 % (0.0-3.0); HEMATOCRIT 38.3 % (42.0-52.0); HEMOGLOBIN 12.3 g/dl (13.5-17.5); IMMATURE GRANULOCYTE % 0.2 % (0-3.0); LYMPH # 1.9 10^3/uL (1.5-4.5); LYMPH % 38.4 % (24.0-44.0); MEAN CORPUSCULAR HGB CONC 32.1 g/dl (32.0-36.5); MEAN CORPUSCULAR VOLUME 99.7 fl (80.0-96.0); MONO # 0.6 10^3/uL (0.0-0.8); MONO % 12.1 % (0.0-5.0); NEUTROPHILS # 2.2 10^3/uL (1.8-7.7); NEUTROPHILS % 45.8 % (36.0-66.0); RED BLOOD COUNT 3.84 10^6/uL (4.30-6.10); WHITE BLOOD COUNT 4.9 10^3/uL (4.0-10.0)
[2018-06-20 19:23] LABS: ALT/SGPT 22 U/L (12-78); AST/SGOT 25 U/L (7-37); C REACTIVE PROTEIN QUANTITATIV < 0.30 MG/DL (0.00-0.30); CREATININE FOR GFR 0.79 MG/DL (0.70-1.30); GLOMERULAR FILTRATION RATE > 60.0 (>35)
[2018-06-20 19:34] LABS: PLATELET COUNT, AUTOMATED 74 10^3/uL (150-450)
[2018-06-20 19:35] LABS: IMMATURE PLATELET FRACTION % 16.6 % (0.0-10.9)
[2018-06-20 20:09] LABS: ERYTHROCYTE SEDIMENTATION RATE 64 mm/hr (0-20)
== END ==
LOC: M LAB 18:01
DX: Z51.81 Encounter for therapeutic drug level monitoring (principal); Z79.899 Other long term (current) drug therapy; M46.99 Unspecified inflammatory spondylopathy, multiple sites in spine

== ENCOUNTER → 2018-08-02 | Outpatient (REF) | payer MEDICARE ==
[2018-08-02 18:45] LABS: BACTERIA, URINE AUTO NEGATIVE (NEGATIVE); RBC, URINE AUTO 2 /HPF (0-3); SQUAMOUS EPITHELIAL CELL UR AU 0 /HPF (0-6); WBC, URINE AUTO 2 /HPF (0-3)
[2018-08-02 19:10] LABS: TOTAL PROTEIN,RANDOM URINE 95.3 MG/DL (0.0-12.0)
== END ==
LOC: M LAB REF 17:15
DX: R80.9 Proteinuria, unspecified (principal)
CPT/HCPCS: 82570

== ENCOUNTER → 2018-08-16 | Outpatient (CLI) | payer MEDICARE ==
[2018-08-16 13:24] LABS: ALBUMIN/GLOBULIN RATIO 0.63 (1.00-1.93); ALKALINE PHOSPHATASE 86 U/L (45-117); ALT/SGPT 17 U/L (12-78); AST/SGOT 25 U/L (7-37); BILIRUBIN,DIRECT 0.2 MG/DL (0.0-0.2); BILIRUBIN,TOTAL 0.6 MG/DL (0.2-1.0); TOTAL PROTEIN 7.8 GM/DL (6.4-8.2)
== END ==
LOC: M LAB 11:21
DX: K75.4 Autoimmune hepatitis (principal)
CPT/HCPCS: 80076

== ENCOUNTER → 2018-09-03 | Outpatient (REF) | payer MEDICARE ==
[2018-09-03 18:01] LABS: BACTERIA, URINE AUTO NEGATIVE (NEGATIVE); CALCIUM OXALATE CRYSTALS SMALL; MUCUS, URINE SMALL (NEGATIVE); RBC, URINE AUTO 2 /HPF (0-3); SQUAMOUS EPITHELIAL CELL UR AU 0 /HPF (0-6); TOTAL PROTEIN,RANDOM URINE 203.8 MG/DL (0.0-12.0); URINE TOTAL PROTEIN 203.8 MG/DL (0-12); WBC, URINE AUTO 1 /HPF (0-3)
[2018-09-03 18:03] LABS: COMPLEMENT C3 148 MG/DL (90-180)
[2018-09-03 18:03] LABS: TOTAL PROTEIN 7.9 GM/DL (6.4-8.2)
[2018-09-05 11:07] LABS: ALBUMIN % 43.4 % (55.8-66.1); ALPHA-1-GLOBULIN % 3.8 % (2.9-4.9); ALPHA-2-GLOBULINS % 9.9 % (7.1-11.8); BETA-1-GLOBULINS % 26.4 % (4.7-7.2); BETA-2-GLOBULINS % 6.5 % (3.2-6.5)
[2018-09-05 11:08] LABS: ALBUMIN 3.43 GM/DL (3.29-5.55); ALPHA-2-GLOBULINS 0.78 GM/DL (0.42-0.99); BETA-1-GLOBULINS 2.09 GM/DL (0.28-0.60); BETA-2-GLOBULINS 0.51 GM/DL (0.19-0.55); GAMMA GLOBULINS 0.79 GM/DL (0.65-1.58)
[2018-09-05 11:28] LABS: IMMUNOTYPING SERUM IGG ABNORMAL (NORMAL)
[2018-09-05 11:29] LABS: IMMUNOTYPING SERUM KAPPA ABNORMAL (NORMAL)
[2018-09-05 14:26] LABS: UPEP INTERPRETATION M-SPIKE IN BETA; URINE VOLUME RANDOM ML
[2018-09-05 14:40] LABS: IMMUNOTYPE URINE KAPPA ABNORMAL (NORMAL)
[2018-09-06 00:09] LABS: FREE KAPPA LIGHT CHAINS SERUM 83.2 mg/L (3.3-19.4); FREE LAMBDA LIGHT CHAINS SERUM 20.2 mg/L (5.7-26.3); KAPPA/LAMBDA RATIO SERUM 4.12 (0.26-1.65)
== END ==
LOC: M LAB REF 17:14
DX: R80.9 Proteinuria, unspecified (principal)
CPT/HCPCS: 84165

== ENCOUNTER → 2018-09-12 | Outpatient (CLI) | payer MEDICARE | LOC: M RAD 16:08 | DX: Z90.5 Acquired absence of kidney (principal); R80.9 Proteinuria, unspecified; I10 Essential (primary) hypertension; R35.0 Frequency of micturition; N40.0 Benign prostatic hyperplasia without lower urinary tract symptoms; N28.81 Hypertrophy of kidney | CPT/HCPCS: 76775 ==

== ENCOUNTER 2018-09-28 16:06 | Emergency (ER) | payer MEDICARE ==
[2018-09-28 17:20] LABS: BASO % 0.4 % (0.0-1.0); EOS # 0.3 10^3/uL (0.0-0.50); EOS % 3.6 % (0.0-3.0); HEMATOCRIT 44.8 % (42.0-52.0); HEMOGLOBIN 14.8 g/dl (13.5-17.5); IMMATURE GRANULOCYTE % 0.6 % (0-3.0); LYMPH # 2.3 10^3/uL (1.5-4.5); LYMPH % 25.4 % (24.0-44.0); MEAN CORPUSCULAR HEMOGLOBIN 31.8 pg (27.0-33.0); MEAN CORPUSCULAR VOLUME 96.3 fl (80.0-96.0); MONO % 10.7 % (0.0-5.0); NEUTROPHILS # 5.4 10^3/uL (1.8-7.7); NEUTROPHILS % 59.3 % (36.0-66.0); RED BLOOD COUNT 4.65 10^6/uL (4.30-6.10); RED CELL DISTRIBUTION WIDTH 15.4 % (11.5-14.5); WHITE BLOOD COUNT 9.1 10^3/uL (4.0-10.0)
[2018-09-28 17:26] LABS: PLATELET COUNT, AUTOMATED 88 10^3/uL (150-450)
[2018-09-28 17:34] LABS: ALBUMIN 2.5 GM/DL (3.2-5.2); ALBUMIN/GLOBULIN RATIO 0.45 (1.00-1.93); ALKALINE PHOSPHATASE 92 U/L (45-117); ALT/SGPT 21 U/L (12-78); ANION GAP 10 MEQ/L (8-16); AST/SGOT 27 U/L (7-37); BILIRUBIN,DIRECT 0.2 MG/DL (0.0-0.2); BILIRUBIN,TOTAL 0.8 MG/DL (0.2-1.0); BLOOD UREA NITROGEN 15 MG/DL (7-18); CARBON DIOXIDE LEVEL 25 MEQ/L (21-32); CHLORIDE LEVEL 100 MEQ/L (98-107); CK-MB VALUE MASS < 1.0 NG/ML (<3.6); CPK CREATINE PHOSPHOKINASE 49 U/L (39-308); CREATININE FOR GFR 0.97 MG/DL (0.70-1.30); GLOMERULAR FILTRATION RATE > 60.0 (>35); GLUCOSE, FASTING 93 MG/DL (70-100); MB/CK RELATIVE INDEX 2.04 (< OR =4); POTASSIUM SERUM 3.8 MEQ/L (3.5-5.1); SODIUM LEVEL 135 MEQ/L (136-145); TROPONIN I < 0.02 NG/ML (< 0.10)
[2018-09-28] MEDS: IPRATROPIUM 0.5MG/ALBUTEROL 2.5MG INH SOL UD 3ML (DUONEB)(J7620) NEB (17:53)
[2018-09-28] MEDS: AZITHROMYCIN INJ 500 MG, VIAL MATE ADAPTER 1 EACH in D5W 250 ML IV (19:52)
[2018-09-28] MEDS: dexameTHASONE 20 MG/5 ML VIAL (J1100) IV (19:52)
== END 2018-09-28 21:22 | disposition home or self-care (01) ==
LOC: M ED 16:06
DX: J20.9 Acute bronchitis, unspecified (principal); B34.8 Other viral infections of unspecified site; I45.10 Unspecified right bundle-branch block; I48.91 Unspecified atrial fibrillation; I11.0 Hypertensive heart disease with heart failure; I50.9 Heart failure, unspecified; J44.0 Chronic obstructive pulmonary disease with (acute) lower respiratory infection; I25.10 Atherosclerotic heart disease of native coronary artery without angina pectoris; N40.0 Benign prostatic hyperplasia without lower urinary tract symptoms; Z79.899 Other long term (current) drug therapy; Z79.01 Long term (current) use of anticoagulants; Z87.891 Personal history of nicotine dependence
CPT/HCPCS: J0456

== ENCOUNTER → 2018-10-02 | Outpatient (REF) | payer MEDICARE ==
[2018-10-02 18:08] LABS: TOTAL VOLUME, URINE 2215 ML
[2018-10-02 18:22] LABS: CREATININE 24 HOUR, URINE 912.5 MG/24HR (950-2500); CREATININE, URINE 41.2 MG/DL; TOTAL PROTEIN 24 HOUR URINE 733.1 MG/24HR (50-150); URINE TOTAL PROTEIN 33.1 MG/DL (0-12)
== END ==
LOC: M LAB REF 16:59
DX: R80.9 Proteinuria, unspecified (principal)
CPT/HCPCS: 81050

== ENCOUNTER → 2018-10-04 | Outpatient (REF) | payer MEDICARE ==
[2018-10-04 17:44] LABS: INR 4.81; PROTHROMBIN TIME 46.2 SECONDS (12.1-14.4)
== END ==
LOC: M LAB REF 16:07
DX: I48.0 Paroxysmal atrial fibrillation (principal); Z51.81 Encounter for therapeutic drug level monitoring; Z79.01 Long term (current) use of anticoagulants
CPT/HCPCS: 85610

== ENCOUNTER → 2018-10-13 | Outpatient (CLI) | payer MEDICARE ==
[2018-10-13 17:07] LABS: URINE VOLUME 2950 ML
[2018-10-13 17:12] LABS: TOTAL PROTEIN,RANDOM URINE 22.2 MG/DL (0.0-12.0); URINE TOTAL PROTEIN 22.2 MG/DL (0-12)
[2018-10-17 14:16] LABS: UPEP INTERPRETATION 2 M-SPIKES IN BETA
[2018-10-17 14:20] LABS: IMMUNOTYPE URINE KAPPA ABNORMAL (NORMAL)
== END ==
LOC: M LAB 16:41
DX: R82.90 Unspecified abnormal findings in urine (principal)
CPT/HCPCS: 84166

== ENCOUNTER → 2018-10-15 | Outpatient (CLI) | payer MEDICARE | LOC: M RAD 13:21 | DX: D47.2 Monoclonal gammopathy (principal) | CPT/HCPCS: 77075 ==

== ENCOUNTER 2018-12-14 11:38 | Emergency (ER) | payer MEDICARE ==
[~2018-12-14] VITALS: Ht 172.7 cm; Wt 100.9 kg
[~2018-12-14 11:38] MED LIST changes: +FLUTISP NARES; -GABA600T PO; +GABA600T4 PO; +HYOS1TAB PO; +PERC5TAB12 PO; +PRED20TA PO; -SALI0.6523; +SALI0.6528; +SPIR-10 PO; -SPIR25TA2 PO; -TOPR50TA PO; +TOPR50TA23 PO; +URSO250T2 PO; +ZOFR4TAB14 PO; +advair INH
--- NOTE | 2018-12-14 13:41 | REP ---
LEFT FOOT SERIES: Four views of the left foot performed. There is no acute fracture or dislocation. Vascular calcifications are seen in the soft tissues. There is mild narrowing of the first metatarsal phalangeal joint. IMPRESSION: No evidence of acute fracture or dislocation. Electronically Signed by Jovany Farfan MD 12/14/2018 07:32 P
[2018-12-14 14:01] LABS: BASO % 0.6 % (0.0-1.0); EOS # 0.2 10^3/uL (0.0-0.50); EOS % 2.5 % (0.0-3.0); HEMATOCRIT 37.5 % (42.0-52.0); HEMOGLOBIN 11.9 g/dl (13.5-17.5); LYMPH # 1.6 10^3/uL (1.5-4.5); LYMPH % 25.2 % (24.0-44.0); MEAN CORPUSCULAR HEMOGLOBIN 32.3 pg (27.0-33.0); MEAN CORPUSCULAR HGB CONC 31.7 g/dl (32.0-36.5); MEAN CORPUSCULAR VOLUME 101.9 fl (80.0-96.0); MONO # 0.6 10^3/uL (0.0-0.8); MONO % 9.8 % (0.0-5.0); NEUTROPHILS % 61.6 % (36.0-66.0); RED BLOOD COUNT 3.68 10^6/uL (4.30-6.10); WHITE BLOOD COUNT 6.4 10^3/uL (4.0-10.0)
[2018-12-14 14:03] LABS: PLATELET COUNT, AUTOMATED 81 10^3/uL (150-450)
[2018-12-14 14:14] LABS: INR 1.97; PROTHROMBIN TIME 22.8 SECONDS (12.1-14.4)
[2018-12-14 14:24] LABS: ERYTHROCYTE SEDIMENTATION RATE 61 mm/hr (0-20)
[2018-12-14 14:25] LABS: BLOOD UREA NITROGEN 13 MG/DL (7-18); C REACTIVE PROTEIN QUANTITATIV 0.75 MG/DL (0.00-0.30); CALCIUM LEVEL 8.7 MG/DL (8.8-10.2); CARBON DIOXIDE LEVEL 30 MEQ/L (21-32); CHLORIDE LEVEL 106 MEQ/L (98-107); CREATININE FOR GFR 0.72 MG/DL (0.70-1.30); GLOMERULAR FILTRATION RATE > 60.0 (>35); GLUCOSE, FASTING 91 MG/DL (70-100); POTASSIUM SERUM 3.3 MEQ/L (3.5-5.1); SODIUM LEVEL 142 MEQ/L (136-145)
--- NOTE | 2018-12-14 14:44 | REP ---
CHEST, TWO VIEWS: Two views of the chest are performed and compared to prior studies most recently 09/28/2018. There is an interstitial fibrotic change bilaterally with no evidence of superimposed acute infiltrate. Heart is not enlarged. Mediastinal silhouette is unchanged. Multiple sternal wires and mediastinal clips are present. There are degenerative changes of the spine. IMPRESSION: Chronic changes. No evidence of superimposed acute infiltrate. Electronically Signed by Jovany Farfan MD 12/14/2018 07:36 P
[2018-12-14] MEDS: cefTRIAXone SOD 1 GM in D5W MINI-BAG PLUS 50 ML IV ONE ×2 (15:00→15:12)
[2018-12-14] MEDS ORDERED: CEPHALEXIN 500 MG CAP PO ONE (15:30)
[2018-12-14] MEDS ORDERED: KEFL500C17 PO (15:37)
[2018-12-14 15:46] VITALS: BP 115/54
--- NOTE | 2018-12-15 06:37 | ECGEPIP ---
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
== END 2018-12-14 15:57 | disposition home or self-care (01) ==
LOC: M ED 11:38
DX: L03.116 Cellulitis of left lower limb (principal); I11.0 Hypertensive heart disease with heart failure; I50.9 Heart failure, unspecified; I48.91 Unspecified atrial fibrillation; Z95.1 Presence of aortocoronary bypass graft; Z87.891 Personal history of nicotine dependence

== ENCOUNTER 2018-12-17 21:20 | Inpatient (IN) | payer MEDICARE ==
[~2018-12-17] VITALS: Ht 172.7 cm; Wt 108.5 kg
[~2018-12-17 21:20] MED LIST changes: +KEFL500C17 PO
[2018-12-17] MEDS ORDERED: ACETAMINOPHEN 325 MG TAB PO ONE (22:30)
[2018-12-17 22:55] LABS: BASO % 0.5 % (0.0-1.0); EOS # 0.2 10^3/uL (0.0-0.50); EOS % 2.6 % (0.0-3.0); HEMATOCRIT 36.7 % (42.0-52.0); HEMOGLOBIN 11.8 g/dl (13.5-17.5); LYMPH # 1.6 10^3/uL (1.5-4.5); LYMPH % 26.7 % (24.0-44.0); MEAN CORPUSCULAR HEMOGLOBIN 32.2 pg (27.0-33.0); MEAN CORPUSCULAR HGB CONC 32.2 g/dl (32.0-36.5); MONO # 0.6 10^3/uL (0.0-0.8); MONO % 9.5 % (0.0-5.0); NEUTROPHILS # 3.6 10^3/uL (1.8-7.7); NEUTROPHILS % 60.4 % (36.0-66.0); RED BLOOD COUNT 3.67 10^6/uL (4.30-6.10); WHITE BLOOD COUNT 5.9 10^3/uL (4.0-10.0)
[2018-12-17 22:56] LABS: PLATELET COUNT, AUTOMATED 88 10^3/uL (150-450)
[2018-12-17 23:12] LABS: BLOOD UREA NITROGEN 14 MG/DL (7-18); C REACTIVE PROTEIN QUANTITATIV 1.34 MG/DL (0.00-0.30); CALCIUM LEVEL 8.6 MG/DL (8.8-10.2); CARBON DIOXIDE LEVEL 26 MEQ/L (21-32); CHLORIDE LEVEL 104 MEQ/L (98-107); CREATININE FOR GFR 0.82 MG/DL (0.70-1.30); GLOMERULAR FILTRATION RATE > 60.0 (>35); GLUCOSE, FASTING 91 MG/DL (70-100); POTASSIUM SERUM 3.7 MEQ/L (3.5-5.1); SODIUM LEVEL 139 MEQ/L (136-145)
[2018-12-17 23:28] LABS: ERYTHROCYTE SEDIMENTATION RATE 67 mm/hr (0-20)
[2018-12-18] VITALS (8 sets, daily range): BP systolic 122–151; BP diastolic 61–85
--- NOTE | 2018-12-18 00:01 | REPVR ---
EXAM: US Duplex Left Lower Extremity Veins, Limited EXAM DATE/TIME: 12/17/2018 11:29 PM CLINICAL HISTORY: 83 years old, male; Pain; Leg, lower and foot; Left; Additional info: Calf swelling, pain TECHNIQUE: Real-time Duplex ultrasound of the Left Lower Extremity with 2-D lr scale, color Doppler flow and spectral waveform analysis. Limited exam focused on the left lower extremity veins. COMPARISON: US Duplex, Ext,LOWER veins,unilat 11/17/2017 5:07 AM FINDINGS: Left deep veins: Unremarkable. The common femoral, femoral and popliteal veins are patent without thrombus. Normal compressibility, augmentation response and Doppler waveforms. Left superficial veins: Unremarkable. Saphenofemoral junction is patent without thrombus. Soft tissues: Unremarkable. IMPRESSION: No sonographic evidence of deep vein thrombosis. Electronically signed by: Tereso Hoff On 12/18/2018 00:00:57 AM
--- NOTE | 2018-12-18 00:08 | REPVR ---
EXAM: US Left Non-Vascular Joint or Other Extremity Structure, Limited Lower Extremity EXAM DATE/TIME: 12/17/2018 11:29 PM CLINICAL HISTORY: 83 years old, male; Pain and injury or trauma; Injury history: Dropped a bottle on top of his foot; Follow-up exam; Lower leg and foot; Left; Swelling (edema); Injury date: Approx a week ago; Additional info: Calf swelling, pain TECHNIQUE: Left US Non-Vascular Joint or Other Extremity Structure. Limited exam of the lower extremity. COMPARISON: CR Foot, complete 12/14/2018 12:05 PM FINDINGS: Moderate to severe soft tissue swelling and subcutaneous edema. 3.1 x 1.5 cm complex, avascular collection with surrounding hyperemia along the dorsum of the foot. IMPRESSION: 3.1 x 1.5 cm complex, avascular collection with surrounding hyperemia along the dorsum of the foot with moderate to severe associated soft tissue swelling and edema. Findings are compatible with hematoma versus abscess. If clinically indicated, this would be amenable to ultrasound-guided fine needle aspiration. Electronically signed by: Tereso Hoff On 12/18/2018 00:08:01 AM
[2018-12-18 01:21] LABS: INR 2.35; PROTHROMBIN TIME 26.2 SECONDS (12.1-14.4)
[2018-12-18] MEDS ORDERED: ADVA115A INH (01:28)
[2018-12-18] MEDS ORDERED: REST0.05 OU (01:28)
[2018-12-18] MEDS ORDERED: OCEA0.654 (01:28)
[2018-12-18] MEDS ORDERED: ALBU83IN INH (01:28)
[2018-12-18] MEDS ORDERED: FLON1SPR (01:28)
[2018-12-18] MEDS ORDERED: ROSU20TA4 PO (01:28)
[2018-12-18] MEDS ORDERED: FURO40TA2 PO (01:28)
[2018-12-18] MEDS ORDERED: PROAAER10 INH (01:28)
[2018-12-18] MEDS ORDERED: SPIR1CAP INH (01:28)
[2018-12-18] MEDS ORDERED: METO1TAB7 PO (01:28)
[2018-12-18] MEDS ORDERED: NITR4TASL SL (01:28)
[2018-12-18] MEDS ORDERED: WARF-58 PO (01:28)
[2018-12-18] MEDS ORDERED: GI COCKTAIL PO (01:28)
[2018-12-18] MEDS ORDERED: SPIR-10 PO (01:28)
[2018-12-18] MEDS ORDERED: GABA600T4 PO ×2 (01:28)
[2018-12-18] MEDS ORDERED: CEPH500C PO (01:28)
[2018-12-18] MEDS ORDERED: NEXI40CA PO (01:28)
[2018-12-18] MEDS ORDERED: NITROGLYCERIN 0.4 MG SUBL TABLET SL PRN (02:00)
[2018-12-18] MEDS ORDERED: PANTOPRAZOLE 40MG TAB (PROTONIX) PO PRN (02:00)
[2018-12-18] MEDS ORDERED: SPIRONOLACTONE 25 MG TAB PO PRN (02:00)
[2018-12-18] MEDS ORDERED: FLUTICASONE PROP 0.05% NASAL SPRAY 16 GM (FLONASE) PRN (02:00)
[2018-12-18] MEDS ORDERED: IPRATROPIUM 0.5MG/ALBUTEROL 2.5MG INH SOL UD 3ML (DUONEB)(J7620) NEB PRN (02:00)
[2018-12-18] MEDS ORDERED: SODIUM CHLORIDE NASAL 0.65% SPRAY BTL (OCEAN) PRN (02:00)
[2018-12-18] MEDS: GABAPENTIN 300 MG CAP PO SCH ×3 (02:58→21:18)
[2018-12-18] MEDS: ROSUVASTATIN 10 MG TAB (CRESTOR) PO SCH ×2 (02:59→21:18)
[2018-12-18] MEDS: ADVAIR HFA 115/21MCG INHALER INH SCH ×2 (03:49→09:00)
--- NOTE | 2018-12-18 03:53 | PHACANCOPD ---
PHARMACY VANCOMYCIN DOSING Pt Demographics Demographics Patient Age:83 , Weight:100.910 , Gender: male Adjusted Body Weight Date: 12/18/18, Adjusted Body Weight: Kg Events Past 24 Hours Events Past 24 Hours: NO: Dialysis, Diuretic Therapy, Change in CrCl, Fever, Elevation in WBC, Pending Diagnostics, Pending Procedures, Other Vancomycin Vancomycin Target Ranges: 15-20 mcg/ml Vancomycin Load Y/N: Yes Load Dose Date Time Vancomycin Load Dose: 2000mg Date: 12-18 Time: 0800 Vancomycin Dose Date: 12/18/18. Current Vancomycin Dose: [1000mg q8] Intermittent Dosing?: No Labs Labs Item Value Date Time White Blood Count 5.9 10^3/uL 12/17/188 Blood Urea Nitrogen 14 MG/DL 12/17/188 Creatinine 0.82 MG/DL 12/17/182237 Glomerular Filtration Rate > 60.0 12/17/182237 Vital Signs Label Value Date Time Patient Temperature 97.2 degrees F 12/18/18227 Temperature Source Temporal 12/18/18227 Micro Microbiology 12/18/18 Blood Culture, Received Pending Creatinine Clearance Date:12/18/18. Creatinine Clearance: [~65]. Pending Labs Trough 12-18 @2300 Assessment and Plan Maintaining Current Dose?: Yes Reason for dose change: No Dose Change Pharmacist Note Pharmacist Note Date: 12/18/18. Pharmacist note:Will continue to monitor and make adjustments as needed. ROSALINO SINGH [facility] Dec 18, 2018 03:53
[2018-12-18] MEDS: cefTRIAXone SOD 1 GM in D5W MINI-BAG PLUS 50 ML IV SCH (04:10)
[2018-12-18] MEDS ORDERED: VANCOMYCIN HCL 1,000 MG, VIAL MATE ADAPTER 1 EACH in D5W 250 ML IV ONE (05:00)
[2018-12-18] MEDS: FUROSEMIDE 40 MG TAB PO SCH (08:34)
[2018-12-18] MEDS: METOPROLOL SUCC (TopROL XL) 50MG **XL** TAB PO SCH (08:34)
[2018-12-18] MEDS: VANCOMYCIN HCL 1,000 MG, VIAL MATE ADAPTER 1 EACH in D5W 250 ML IV SCH ×2 (08:34→16:35)
[2018-12-18] MEDS: TIOTROPIUM INHALER/CAPSULE (SPIRIVA) INH SCH (09:00)
--- NOTE | 2018-12-18 12:40 | HPE ---
DATE OF ADMISSION: 12/18/2018 CHIEF COMPLAINT: Worsening, pain, swelling, erythema and induration of the left foot and leg. HISTORY OF PRESENT ILLNESS: The patient is an 83-year-old male. He has a significant past medical history of coronary artery disease, status post stenting and coronary artery bypass graft (CABG), chronic obstructive pulmonary disease (COPD), hypertension, hyperlipidemia, diastolic congestive heart failure (CHF) and benign prostatic hypertrophy (BPH), prostate cancer, status post radiation, ITP, MGUS, follows with hematology, who presented to the emergency room with worsening pain, swelling, induration and erythema of the left lower extremity and left dorsum of his foot, which has progressively spread since last sustaining an injury to the dorsum of the foot approximately 7 to 8 days ago. The patient states a bottle fell on his foot and initially it was red and indurated. He presented to the emergency room on Sunday with worsening redness, erythema, and induration. He was subsequently discharged on Keflex. He presents today with worsening pain, inability to bear weight on the foot. Ultrasound was completed that showed a 3 x 1 cm fluid collection. It appears that this may be developing abscess with cellulitis or infected hematoma. The patient denies fevers or chills. Denies cough, chest pain, shortness of breath, urinary symptoms, abdominal pain, constipation, or diarrhea. The patient has a history of ITP. His platelet count is 88. He follows with hematology. He is on Coumadin for atrial fibrillation. His INR is therapeutic today at 2.35. It is possible that the patient, with his thrombocytopenia and anticoagulation has developed progressively worsening hematoma, which has been infected, versus a possible less likely formation of an abscess. PAST MEDICAL HISTORY: See history of present illness. PAST SURGICAL HISTORY: 1. Nephrectomy in the past secondary to injury. 2. Coronary artery bypass graft (CABG), stenting. 3. Appendectomy. 4. Mole surgery. HOME MEDICATIONS: - albuterol as needed - Spiriva - Lasix - spironolactone - gabapentin - Toprol XL - nitroglycerin - Crestor - Advair - Coumadin - Keflex - Restasis ALLERGIES: No known drug allergies. SOCIAL HISTORY: He is a former smoker. Denies alcohol or illicit drug use. FAMILY HISTORY: Heart disease. REVIEW OF SYSTEMS: 12-point review of systems was complete, all of which were negative except those listed in the history of present illness. ADMISSION VITALS: Temperature 96, pulse 96, respirations 18, saturating 94% on room air. Blood pressure 120/89. PHYSICAL EXAMINATION: GENERAL: Well nourished. In no apparent distress. HEAD: Normocephalic, atraumatic. EYES: Extraocular movements are intact. Pupils are equal, round and reactive to light. NECK: Supple. No jugular venous pressure. LUNGS: Clear to auscultation. No crackles, wheezes, rales or rhonchi. CARDIOVASCULAR: Irregularly irregular rhythm. Normal S1, S2. No murmurs, gallops or rubs. ABDOMEN: Soft, nontender, nondistended. Positive bowel sounds. No rebound or guarding. EXTREMITIES: He has edema, indurated, warm and progressively worsening erythema over the dorsum of the foot, calcaneus as well as up the leg with pain to touch. NEUROLOGIC: Alert and oriented times three. No focal deficits appreciated on examination. LABORATORIES/IMAGING: Done in the emergency room, white count 5, hemoglobin and hematocrit 11/36, platelet count of 88. Coags: INR 2.3. Chemistry shows a BUN and creatinine of 14/0.82, C-reactive protein of 1.34, lactate within normal limits. IMAGING: Ultrasound shows a 3.1 x 1.5 cm complex with surrounding hyperemia around the dorsum of the foot with moderate to severe associated soft tissue swelling and edema. Findings are compatible with a hematoma versus abscess. Doppler is negative for deep vein thrombosis (DVT). ASSESSMENT AND PLAN: 1. Worsening pain, swelling and erythema, possibly secondary to a progressively worsening hematoma with superimposed infection versus cellulitis with abscess. More than likely I believe this an infected hematoma. We will hold the patient's Coumadin. If this progresses, we will likely reverse with vitamin K, we will also watch his platelet count. He has a history of ITP. We will place the patient on vancomycin and ceftriaxone for now. He does not have any risk factors for pseudomonas and does not require pseudomonal coverage. Once the hematoma is drained, cultures can be sent and can be tailored accordingly. We will get a MRI to assess for the extent of the patient's hematoma, as well as delineate if there is any abscess or bony involvement. Again, we will place the patient on Rocephin and vancomycin. We will send an ESR in addition to CRP. Tylenol as needed. The patient will likely need to have this hematoma drainage. We will delineate the hematoma to see if there is any progression, at which point if it continues to progress, likely the patient will benefit from vitamin K for reversal. 2. For coronary artery disease, status post stenting and coronary artery bypass graft (CABG), continue nitroglycerin. Continue Toprol. Continue Crestor. 3. For his diastolic congestive heart failure (CHF). Continue spironolactone and Lasix. 4. For chronic obstructive pulmonary disease (COPD). Continue Spiriva, Advair, DuoNeb as needed. 5. Hypertension. Continue Toprol. 6. Prostate cancer, status post radiation, stable. 7. Atrial fibrillation. Continue Toprol for rate control. Coumadin held. 8. History of ITP and MGUS. Continue to follow platelet count while the patient is hospitalized. Currently it is 88,000. 9. Supportive. Deep vein thrombosis (DVT) prophylaxis is not indicated. The patient is on Coumadin and bleeding. Gastrointestinal prophylaxis, the patient is already on a proton pump inhibitor. 10. Diet is cardiac with fluid restriction of 2 liters per day. MTDD
[2018-12-18] MEDS ORDERED: LIDOCAINE 2% MDV 20 ML VIAL As Ordered ONE (15:17)
[2018-12-18] MEDS ORDERED: BUPIVACAINE HCL 0.5% 30 ML VIAL As Ordered ONE (15:17)
[2018-12-18] MEDS ORDERED: VANCOMYCIN 1000 MG/20 ML VIAL (J3370) As Ordered ONE (16:22)
[2018-12-18] MEDS ORDERED: LIDOCAINE 2% INJ 100 MG/5 ML SDV (FOR ANES.) As Ordered ONE (16:55)
[2018-12-18] MEDS ORDERED: dexameTHASONE 4 MG/ML 1ML VIAL (J1100) As Ordered ONE (16:55)
[2018-12-18] MEDS ORDERED: MIDAZOLAM INJ 2 MG/2 ML VIAL (J2250) As Ordered ONE (16:55)
[2018-12-18] MEDS ORDERED: PROPOFOL 200 MG/20 ML VIAL As Ordered ONE (16:55)
[2018-12-18] MEDS ORDERED: fentaNYL 100 MCG/2 ML INJECTION (J3010) As Ordered ONE (16:55)
[2018-12-18] MEDS ORDERED: ONDANSETRON 4MG/2ML VIAL (J2405) As Ordered ONE (16:55)
[2018-12-18] MEDS ORDERED: GENTAMICIN SULF INJ 80MG/2ML VIAL (J1580) As Ordered ONE (16:55)
[2018-12-18] MEDS ORDERED: ROPIvacaine 0.5% 30 ML INJECTION (J2795 PER 1MG) As Ordered ONE (17:03)
--- NOTE | 2018-12-18 17:12 | REP ---
MRI LEFT FOOT: Multiple sequences obtained in the axial, coronal and sagittal planes. Correlation made with plain films 12/14/2018. The osseous structures of the left foot demonstrate no marrow edema and on evidence of occult fracture. There is diffuse moderate edema throughout the soft tissues of the foot, nonspecific. I cannot exclude superimposed cellulitis. Focal mixed signal structure in the dorsal soft tissues along the dorsal surface of the extensor tendons is noted at the level of the mid metatarsals. This measures approximately 1.8 x 3.4 x 3.6 cm and is most consistent with a focal soft tissue hematoma. There is mild fluid surrounding portions of the flexor tendons in the plantar aspect of the foot, in the mid and hindfoot. This has the appearance of mild diffuse tenosynovitis. Plantar tendon is intact as is the Achilles tendon. The other tendons and ligaments better visualized at the ankle appear intact. IMPRESSION: Focal hematoma in the dorsal soft tissues of the foot at the level of the mid metatarsals measuring 1.8 x 3.4 x 3.6 cm. Diffuse edema in the soft tissues of the foot is nonspecific. I cannot exclude superimposed cellulitis. There is evidence of mild tenosynovitis involving the flexor tendons in the plantar aspect of the foot, in the mid and hindfoot. Electronically Signed by Jovany Farfan MD 12/18/2018 08:19 P
[2018-12-18] MEDS ORDERED: LR 1,000 ML IV SCH (18:30)
[2018-12-18] MEDS ORDERED: PERCOCET 5MG/325MG TAB PO PRN (18:30)
[2018-12-18] MEDS ORDERED: fentaNYL 100 MCG/2 ML INJECTION (J3010) IV PRN (18:30)
[2018-12-18] MEDS ORDERED: ONDANSETRON 4MG/2ML VIAL (J2405) IV PRN (18:30)
[2018-12-19] MEDS: VANCOMYCIN HCL 1,000 MG, VIAL MATE ADAPTER 1 EACH in D5W 250 ML IV SCH ×2 (00:14→08:26)
[2018-12-19] MEDS: cefTRIAXone SOD 1 GM in D5W MINI-BAG PLUS 50 ML IV SCH (04:17)
[2018-12-19] MEDS: ACETAMINOPHEN TAB 650MG DOSE (2X325MG) PO PRN ×2 (05:02→10:06)
[2018-12-19 06:04] LABS: HEMATOCRIT 33.5 % (42.0-52.0); HEMOGLOBIN 10.7 g/dl (13.5-17.5); MEAN CORPUSCULAR HEMOGLOBIN 32.2 pg (27.0-33.0); MEAN CORPUSCULAR HGB CONC 31.9 g/dl (32.0-36.5); MEAN CORPUSCULAR VOLUME 100.9 fl (80.0-96.0); RED BLOOD COUNT 3.32 10^6/uL (4.30-6.10); WHITE BLOOD COUNT 4.4 10^3/uL (4.0-10.0)
[2018-12-19 06:13] LABS: PLATELET COUNT, AUTOMATED 76 10^3/uL (150-450)
[2018-12-19 06:15] LABS: INR 2.19; PROTHROMBIN TIME 24.8 SECONDS (12.1-14.4)
[2018-12-19 06:31] LABS: BLOOD UREA NITROGEN 15 MG/DL (7-18); C REACTIVE PROTEIN QUANTITATIV 1.06 MG/DL (0.00-0.30); CALCIUM LEVEL 8.7 MG/DL (8.8-10.2); CARBON DIOXIDE LEVEL 27 MEQ/L (21-32); CHLORIDE LEVEL 105 MEQ/L (98-107); CREATININE FOR GFR 0.94 MG/DL (0.70-1.30); GLOMERULAR FILTRATION RATE > 60.0 (>35); GLUCOSE, FASTING 183 MG/DL (70-100); POTASSIUM SERUM 3.6 MEQ/L (3.5-5.1); SODIUM LEVEL 139 MEQ/L (136-145)
[2018-12-19 08:00] VITALS: BP 124/55
[2018-12-19] MEDS: ADVAIR HFA 115/21MCG INHALER INH SCH ×2 (08:01→20:08)
[2018-12-19] MEDS: TIOTROPIUM INHALER/CAPSULE (SPIRIVA) INH SCH (08:01)
[2018-12-19] MEDS: GABAPENTIN 300 MG CAP PO SCH ×2 (08:30→21:16)
[2018-12-19] MEDS: METOPROLOL SUCC (TopROL XL) 50MG **XL** TAB PO SCH (08:36)
[2018-12-19] MEDS: PANTOPRAZOLE 40MG TAB (PROTONIX) PO SCH (08:37)
[2018-12-19] MEDS: FUROSEMIDE 40 MG TAB PO SCH (08:37)
--- NOTE | 2018-12-19 15:32 | HPE ---
DATE OF ADMISSION: 12/18/2018 CHIEF COMPLAINT: An 83-year-old male seen for evaluation of pain and swelling of the top of his left foot. Patient states approximately a week ago (he does not remember the exact date), he dropped a 7-ounce plastic bottle of shave lotion on the top of his foot. He states that this initially hurt, but over the next few days the pain became progressively more painful, and he went to the emergency room, had some antibiotics dispensed, and then was discharged. He returns today with increasing pain in his foot, and even light touch causes considerable discomfort. He has redness of the foot extending up his leg, but there is a tense area on the top of his foot, and he is seen today for evaluation. MEDICATIONS: - furosemide 40 mg daily - gabapentin 600 in the morning and 1200 mg at night - metoprolol 50 mg daily - Spiriva one puff daily - Advair two puffs twice a day - Crestor 20 mg at bedtime - pantoprazole 40 mg daily - nitroglycerine 0.4 mg as needed for chest pain - Flonase two sprays daily for congestion - acetaminophen as needed for headache Evaluation of the patient's lower extremity reveals erythema on the dorsal aspect of the foot extending from the proximal interphalangeal joints through the lower leg. There is an area of swelling present on the dorsal aspect of the foot. This area measures on physical exam to be approximately 5 cm x 11.5 cm, but with ultrasound revealed a 3.5 x 1.5 cm hypoechoic area. There is no calf tenderness or swelling of the calf. Patient has had some studies consisting of venous duplex negative for deep vein thrombosis (DVT), and a left-sided of the lower extremity for the mass. The venous duplex was on 12/17/2018 at 11:29, negative for deep vein thrombosis. Patient is scheduled for an MRI of his left foot. Patient is nothing by mouth after 8 a.m. He is scheduled for a surgical decompression of probable hematoma of his left foot. His questions were answered. Consent was signed.
[2018-12-19 16:00] VITALS: BP 110/65
--- NOTE | 2018-12-19 17:15 | IPN ---
DATE: 12/18/2018 Patient admitted overnight. Denies any fevers, chills, chest pain, pressure, or discomfort. Reported left foot pain and left leg pain. VITAL SIGNS: Temperature 98.1, pulse 64, respirations 18, blood pressure 134/61, pulse oximetry 95% on room air. LABORATORY DATA: WBC 5.9, hemoglobin and hematocrit 11.8/36.7, platelets 88. Chemistry: Sodium 139, potassium 3.7, chloride 104, bicarbonate 26, BUN 14, creatinine 0.8, C-reactive protein 1.34. PHYSICAL EXAMINATION: GENERAL: Patient in no acute distress. HEENT: Normocephalic, atraumatic. NECK: Supple. PULMONARY: Bilateral clear. CARDIAC: Irregularly irregular, S1, S2. ABDOMEN: Soft, nontender, nondistended. Positive bowel sounds. EXTREMITIES: Edema, warmth, and induration on patient's left foot that is painful to palpation, extending up to patient's mid moyer. Dorsalis pedis (DP)/posterior tibialis (PT) pulses intact. ASSESSMENT AND PLAN: This is an 83-year-old male patient with underlying medical history of coronary artery disease, status post stenting and coronary artery bypass graft (CABG), chronic obstructive pulmonary disease (COPD), hypertension, dyslipidemia, diastolic congestive heart failure, BPH, prostate cancer status post radiation as well as idiopathic thrombocytopenic purpura (ITP), monoclonal gammopathy of uncertain significance (MGUS). 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 Presented to the hospital with worsening pain, swelling, and erythema of left foot after dropping a bottle onto patient's left foot. 1. Left foot cellulitis and infected hematoma. Patient placed on vancomycin and Rocephin. MRI has been ordered. Consulted podiatry. C-reactive protein has been ordered. Followup cultures. Physical therapy after surgery. 2. Coronary artery disease, status post stent and CABG. Continue statin. Continue metoprolol, Lasix. Holding Coumadin given patient having a hematoma and going for surgery. 3. History of diastolic congestive heart failure. Continue Lasix, spironolactone. Patient on beta miah and Crestor. Will monitor. 4. Chronic obstructive pulmonary disease (COPD). Spiriva, Advair, nebulizer treatment. 5. Hypertension. Continue Spironolactone, Lasix, and metoprolol. 6. Prostate cancer, status post radiation. Outpatient followup. 7. Atrial fibrillation. Continue metoprolol. Coumadin on hold in light of recent surgery. 8. History of idiopathic thrombocytopenic purpura (ITP) and MGUS. Monitor platelets. Outpatient followup. 9. Deep vein thrombosis (DVT) prophylaxis. In light of left lower extremity hematoma, will hold any anticoagulation at this point. Patient was on Coumadin with therapeutic INR. Will consider potentially reversing Coumadin based on bleeding from surgery. 10. Gastroesophageal reflux disease (GERD). Continue proton pump inhibitor (PPI). DISPOSITION: Pending surgery, clinical improvement.
[2018-12-19] MEDS: PERCOCET 5MG/325MG TAB PO PRN ×2 (17:17→23:43)
--- NOTE | 2018-12-19 20:26 | IPNPDOC ---
Text Note Date of Service The patient was seen on 12/19/18. NOTE Denies any fevers, chills, chest pain, pressure, or discomfort. Reported left foot pain and left leg pain. s/p or PHYSICAL EXAMINATION: GENERAL: Patient in no acute distress. HEENT: Normocephalic, atraumatic. NECK: Supple. PULMONARY: Bilateral clear. CARDIAC: Irregularly irregular, S1, S2. ABDOMEN: Soft, nontender, nondistended. Positive bowel sounds. EXTREMITIES: Edema, warmth, and induration on patient's left foot that is painful to palpation, extending up to patient's mid moyer. Dorsalis pedis (DP)/posterior tibialis (PT) pulses intact. ASSESSMENT AND PLAN: This is an 83-year-old male patient with underlying medical history of coronary artery disease, status post stenting and coronary artery bypass graft (CABG), chronic obstructive pulmonary disease (COPD), hypertension, dyslipidemia, diastolic congestive heart failure, BPH, prostate cancer status post radiation as well as idiopathic thrombocytopenic purpura (ITP), monoclonal gammopathy of uncertain significance (MGUS). Follows with rerecording mixer. Presented to the hospital with worsening pain, swelling, and erythema of left foot after dropping a bottle onto patient's left foot. 1. Left foot cellulitis and hematoma. Patient placed on Rocephin. MRI done. Consulted podiatry. C-reactive protein has been ordered. Followup cultures. Physical therapy. s/p drain hematoma 2. Coronary artery disease, status post stent and CABG. Continue statin. Continue metoprolol, Lasix. Holding Coumadin given patient having a hematoma s/p surgery 3. History of diastolic congestive heart failure. Continue Lasix, spir onolactone. Patient on beta miah and Crestor. Will monitor. 4. Chronic obstructive pulmonary disease (COPD). Spiriva, Advair, nebulizer treatment. 5. Hypertension. Continue Spironolactone, Lasix, and metoprolol. 6. Prostate cancer, status post radiation. Outpatient followup. 7. Atrial fibrillation. Continue metoprolol. Coumadin on hold in light of recent surgery. 8. History of idiopathic thrombocytopenic purpura (ITP) and MGUS. Monitor platelets. Outpatient followup. 9. Deep vein thrombosis (DVT) prophylaxis. In light of left lower extremity hematoma, will hold any anticoagulation at this point. Patient was on Coumadin with therapeutic INR. 10. Gastroesophageal reflux disease (GERD). Continue proton pump inhibitor (PPI). DISPOSITION: clinical improvement. PT VS,Fishbone, I+O VS, Fishbone, I+O Laboratory Tests 12/19/18 05:29 Red Blood Count 3.32 L, Mean Corpuscular Volume 100.9 H, Mean Corpuscular Hemoglobin 32.2, Mean Corpuscular Hemoglobin Concent 31.9 L, Red Cell Distribution Width 16.1 H, Calcium Level 8.7 L Vital Signs Date Time Temp Pulse Resp B/P (MAP) Pulse Ox O2 Delivery O2 Flow Rate FiO2 12/19/18 17:47 18 12/19/18 16:00 97.3 60 110/65 (80) 97 12/18/18 18:45 Nasal Cannula 2 I&O- Last 24 Hours up to 6 AM 12/19/18 06:00 Intake Total 1180 ml Output Total 1645 ml Balance -465 ml MILADYS CEDENO MD Dec 19, 2018 20:26
[2018-12-19] MEDS: ROSUVASTATIN 10 MG TAB (CRESTOR) PO SCH (21:16)
[2018-12-19 23:59] VITALS: BP 138/62
[2018-12-20] MEDS: cefTRIAXone SOD 1 GM in D5W MINI-BAG PLUS 50 ML IV SCH (04:25)
[2018-12-20 05:05] LABS: HEMATOCRIT 33.8 % (42.0-52.0); HEMOGLOBIN 10.6 g/dl (13.5-17.5); MEAN CORPUSCULAR HEMOGLOBIN 31.9 pg (27.0-33.0); MEAN CORPUSCULAR HGB CONC 31.4 g/dl (32.0-36.5); MEAN CORPUSCULAR VOLUME 101.8 fl (80.0-96.0); RED BLOOD COUNT 3.32 10^6/uL (4.30-6.10)
[2018-12-20 05:08] LABS: PLATELET COUNT, AUTOMATED 89 10^3/uL (150-450)
[2018-12-20 05:16] LABS: INR 1.9; PROTHROMBIN TIME 22.1 SECONDS (12.1-14.4)
[2018-12-20 05:31] LABS: BLOOD UREA NITROGEN 18 MG/DL (7-18); C REACTIVE PROTEIN QUANTITATIV 0.62 MG/DL (0.00-0.30); CALCIUM LEVEL 8.8 MG/DL (8.8-10.2); CARBON DIOXIDE LEVEL 26 MEQ/L (21-32); CHLORIDE LEVEL 104 MEQ/L (98-107); CREATININE FOR GFR 0.98 MG/DL (0.70-1.30); GLOMERULAR FILTRATION RATE > 60.0 (>35); GLUCOSE, FASTING 104 MG/DL (70-100); POTASSIUM SERUM 3.9 MEQ/L (3.5-5.1); SODIUM LEVEL 138 MEQ/L (136-145)
[2018-12-20] MEDS: TIOTROPIUM INHALER/CAPSULE (SPIRIVA) INH SCH (07:52)
[2018-12-20] MEDS: ADVAIR HFA 115/21MCG INHALER INH SCH ×2 (07:53→20:13)
[2018-12-20 08:00] VITALS: BP 135/64
[2018-12-20] MEDS: GABAPENTIN 300 MG CAP PO SCH ×2 (10:10→20:52)
[2018-12-20] MEDS: METOPROLOL SUCC (TopROL XL) 50MG **XL** TAB PO SCH (10:11)
[2018-12-20] MEDS: FUROSEMIDE 40 MG TAB PO SCH (10:11)
[2018-12-20] MEDS: PANTOPRAZOLE 40MG TAB (PROTONIX) PO SCH (10:11)
[2018-12-20] MEDS: PERCOCET 5MG/325MG TAB PO PRN ×4 (10:22→23:05)
[2018-12-20] MEDS ORDERED: SLF 3 ML SYR IV PRN (14:00)
[2018-12-20] MEDS: SLF 3 ML SYR IV SCH ×2 (14:15→20:52)
[2018-12-20 15:30] VITALS: BP 120/63
[2018-12-20] MEDS ORDERED: WARFARIN SOD 5 MG TAB PO SCH (17:00)
--- NOTE | 2018-12-20 17:50 | RO ---
DATE OF PROCEDURE: 12/18/2018 PREOPERATIVE DIAGNOSIS: Complex hematoma dorsal aspect left foot. POSTOPERATIVE DIAGNOSIS: Complex hematoma dorsal aspect left foot. PROCEDURES PERFORMED: Incision and drainage of hematoma dorsal aspect left foot with one-quarter inch Iodoform gauze, left foot. SURGEON: Dr. Alejo Dean DPM ANESTHESIA: Local monitored anesthetic care (MAC). IRRIGATION: Dilate gentamicin solution 1 liter low pressure pulsed lavage system. ESTIMATED BLOOD LOSS: 5 mL. COMPLICATIONS: None. DESCRIPTION OF OPERATION: On 12/18/2018 this 83-year-old male was taken from his hospital room to the operating room and placed in the supine position. Following the induction of IV sedation and local laryngeal anesthesia, the left lower extremity was prepped and draped in the usual aseptic manner. Attention was directed to the patient's left extremity where there is noted to be a tensor on the dorsal surface of the foot pushing on the neurovascular bundle. At this time a 4 cm incision was placed on the dorsal aspect of the left foot. There was a large hematoma encompassing from the base of the first metatarsal to the 4th metatarsal area. This was evacuated with curette and suction. The wound was explored and no other hematomas were noted. There was no abscess formation. No active bleeding was visualized. After pulsed lavage with 1 liter with a low pressure pulsed lavage system the wound was packed with one-quarter inch Iodoform gauze and a sterile compressive dressing was applied on the dorsal aspect of the left foot. Patient having apparently tolerated the procedure well was taken from the OR to the recovery room for further monitoring by the anesthesia department. Patient will be on IV antibiotics for his cellulitis of the foot and lower extremity, most likely strep since no purulence ws seen. His questions were answered.
--- NOTE | 2018-12-20 18:57 | IPNPDOC ---
Text Note Date of Service The patient was seen on 12/20/18. NOTE Denies any fevers, chills, chest pain, pressure, or discomfort. Reported left foot pain and left leg pain. PHYSICAL EXAMINATION: GENERAL: Patient in no acute distress. HEENT: Normocephalic, atraumatic. NECK: Supple. PULMONARY: Bilateral clear. CARDIAC: Irregularly irregular, S1, S2. ABDOMEN: Soft, nontender, nondistended. Positive bowel sounds. EXTREMITIES: Edema, warmth, and induration on patient's left foot that is painful to palpation, extending up to patient's mid moyer. s/p surgery dressing c/d/i. Dorsalis pedis (DP)/posterior tibialis (PT) pulses intact. ASSESSMENT AND PLAN: This is an 83-year-old male patient with underlying medical history of coronary artery disease, status post stenting and coronary artery bypass graft (CABG), chronic obstructive pulmonary disease (COPD), hypertension, dyslipidemia, diastolic congestive heart failure, BPH, prostate cancer status post radiation as well as idiopathic thrombocytopenic purpura (ITP), monoclonal gammopathy of uncertain significance (MGUS). Follows with stem shaper. Presented to the hospital with worsening pain, swelling, and erythema of left foot after dropping a bottle onto patient's left foot. 1. Left foot cellulitis and hematoma. Patient placed on Rocephin. MRI done. Consulted podiatry. C-reactive protein has been ordered. Followup cultures. Physical therapy. s/p drain hematoma 2. Coronary artery disease, status post stent and CABG. Continue statin. Continue metoprolol, Lasix. restart Coumadin 3. History of diastolic congestive heart failure. Continue Lasix, spironolactone. Patient on beta miah and Crestor. Will monitor. 4. Chronic obstructive pulmonary disease (COPD). Spiriva, Advair, nebulizer treatment. 5. Hypertension. Continue Spironolactone, Lasix, and metoprolol. 6. Prostate cancer, status post radiation. Outpatient followup. 7. Atrial fibrillation. Continue metoprolol. Coumadin restarted f/u INR 8. History of idiopathic thrombocytopenic purpura (ITP) and MGUS. Monitor platelets. Outpatient followup. 9. Deep vein thrombosis (DVT) prophylaxis. coumadin for A fib, 10. Gastroesophageal reflux disease (GERD). Continue proton pump inhibitor (PPI). DISPOSITION: clinical improvement. PT, dc in 24 hr VS,Fishbone, I+O VS, Fishbone, I+O Laboratory Tests 12/20/18 04:06 Red Blood Count 3.32 L, Mean Corpuscular Volume 101.8 H, Mean Corpuscular Hemoglobin 31.9, Mean Corpuscular Hemoglobin Concent 31.4 L, Red Cell Distribution Width 16.3 H, Calcium Level 8.8 Vital Signs Date Time Temp Pulse Resp B/P (MAP) Pulse Ox O2 Delivery O2 Flow Rate FiO2 12/20/18 15:30 97.5 68 18 120/63 (82) 96 12/18/18 18:45 Nasal Cannula 2 I&O- Last 24 Hours up to 6 AM 12/20/18 06:00 Intake Total 870 ml Output Total 0 ml Balance 870 ml MILADYS CEDENO MD Dec 20, 2018 18:57
[2018-12-20] MEDS: ROSUVASTATIN 10 MG TAB (CRESTOR) PO SCH (20:52)
[2018-12-20 22:00] VITALS: BP 123/71
[2018-12-21] MEDS: PERCOCET 5MG/325MG TAB PO PRN ×3 (04:19→21:56)
[2018-12-21] MEDS: cefTRIAXone SOD 1 GM in D5W MINI-BAG PLUS 50 ML IV SCH (04:19)
[2018-12-21] MEDS: SLF 3 ML SYR IV SCH ×3 (04:19→21:57)
[2018-12-21 06:00] VITALS: BP 121/67
[2018-12-21 06:45] LABS: HEMATOCRIT 34.3 % (42.0-52.0); HEMOGLOBIN 10.8 g/dl (13.5-17.5); MEAN CORPUSCULAR HGB CONC 31.5 g/dl (32.0-36.5); MEAN CORPUSCULAR VOLUME 101.5 fl (80.0-96.0); RED BLOOD COUNT 3.38 10^6/uL (4.30-6.10); WHITE BLOOD COUNT 6.9 10^3/uL (4.0-10.0)
[2018-12-21 06:50] LABS: PLATELET COUNT, AUTOMATED 93 10^3/uL (150-450)
[2018-12-21 06:55] LABS: INR 1.55; PROTHROMBIN TIME 18.8 SECONDS (12.1-14.4)
[2018-12-21 07:12] LABS: BLOOD UREA NITROGEN 18 MG/DL (7-18); C REACTIVE PROTEIN QUANTITATIV 0.88 MG/DL (0.00-0.30); CALCIUM LEVEL 8.5 MG/DL (8.8-10.2); CARBON DIOXIDE LEVEL 27 MEQ/L (21-32); CHLORIDE LEVEL 105 MEQ/L (98-107); CREATININE FOR GFR 0.88 MG/DL (0.70-1.30); GLOMERULAR FILTRATION RATE > 60.0 (>35); GLUCOSE, FASTING 104 MG/DL (70-100); SODIUM LEVEL 138 MEQ/L (136-145)
[2018-12-21] MEDS: ADVAIR HFA 115/21MCG INHALER INH SCH ×2 (07:41→21:00)
[2018-12-21] MEDS: TIOTROPIUM INHALER/CAPSULE (SPIRIVA) INH SCH (07:41)
[2018-12-21] MEDS: PANTOPRAZOLE 40MG TAB (PROTONIX) PO SCH (08:00)
[2018-12-21] MEDS: GABAPENTIN 300 MG CAP PO SCH ×2 (08:00→21:56)
[2018-12-21] MEDS: FUROSEMIDE 40 MG TAB PO SCH (08:00)
[2018-12-21] MEDS: METOPROLOL SUCC (TopROL XL) 50MG **XL** TAB PO SCH (08:01)
--- NOTE | 2018-12-21 08:14 | IPN ---
DATE OF VISIT: 12/20/2018 CHIEF COMPLAINT: An 83-year-old male seen for evaluation, status post incision and drainage of a complex hematoma, dorsal aspect of the left foot. The patient states he has no shortness of breath or chest pain, and his foot gives him occasional pain, but he has noticed considerable reduction after the decompression. The bandage was removed. The drain is in place. The drain was pulled. There is no active bleeding. There is no discharge or signs of infection. Some resolution of the erythema on his lower leg and foot is noted. No tenderness to compression of the calf. ASSESSMENT: Status post incision and drainage of hematoma, dorsal aspect of the foot. PLAN: A dry sterile dressing was applied. The patient will be followed up in my office on Sunday, Sunday, or Sunday. We did discuss with the patient a delayed primary closure of his foot in the future. The patient could allow secondary intention to heal this, but this would take several weeks. We will discuss this with the patient next week. His questions were answered.
[2018-12-21] MEDS ORDERED: PERCOCET PO (08:33)
[2018-12-21] MEDS ORDERED: CEFD1CAP8 PO (08:33)
[2018-12-21 14:00] VITALS: BP 142/68
[2018-12-21] MEDS ORDERED: WARFARIN SOD 3 MG TAB PO SCH (17:00)
--- NOTE | 2018-12-21 19:10 | IPNPDOC ---
Text Note Date of Service The patient was seen on 12/21/18. NOTE Denies any fevers, chills, chest pain, pressure, or discomfort. Reported left foot pain and left leg pain. PHYSICAL EXAMINATION: GENERAL: Patient in no acute distress. HEENT: Normocephalic, atraumatic. NECK: Supple. PULMONARY: Bilateral clear. CARDIAC: Irregularly irregular, S1, S2. ABDOMEN: Soft, nontender, nondistended. Positive bowel sounds. EXTREMITIES: Edema, warmth, and induration on patient's left foot that is painful to palpation, extending up to patient's mid moyer. s/p surgery dressing c/d/i. Dorsalis pedis (DP)/posterior tibialis (PT) pulses intact. ASSESSMENT AND PLAN: This is an 83-year-old male patient with underlying medical history of coronary artery disease, status post stenting and coronary artery bypass graft (CABG), chronic obstructive pulmonary disease (COPD), hypertension, dyslipidemia, diastolic congestive heart failure, BPH, prostate cancer status post radiation as well as idiopathic thrombocytopenic purpura (ITP), monoclonal gammopathy of uncertain significance (MGUS). Follows with lead advisor. Presented to the hospital with worsening pain, swelling, and erythema of left foot after dropping a bottle onto patient's left foot. 1. Left foot cellulitis and hematoma. Patient placed on Rocephin. MRI done. Consulted podiatry. C-reactive protein has been ordered. Followup cultures. Physical therapy. s/p drain hematoma, dc on keflex 2. Coronary artery disease, status post stent and CABG. Continue statin. Continue metoprolol, Lasix. restart Coumadin 3. History of diastolic congestive heart failure. Continue Lasix, spironolacto ne. Patient on beta miah and Crestor. Will monitor. 4. Chronic obstructive pulmonary disease (COPD). Spiriva, Advair, nebulizer treatment. 5. Hypertension. Continue Spironolactone, Lasix, and metoprolol. 6. Prostate cancer, status post radiation. Outpatient followup. 7. Atrial fibrillation. Continue metoprolol. Coumadin restarted f/u INR 8. History of idiopathic thrombocytopenic purpura (ITP) and MGUS. Monitor platelets. Outpatient followup. 9. Deep vein thrombosis (DVT) prophylaxis. coumadin for A fib, 10. Gastroesophageal reflux disease (GERD). Continue proton pump inhibitor (PPI). DISPOSITION: clinical improvement. PT, dc in 24 hr VS,Fishbone, I+O VS, Fishbone, I+O Laboratory Tests 12/21/18 06:18 Red Blood Count 3.38 L, Mean Corpuscular Volume 101.5 H, Mean Corpuscular Hemoglobin 32.0, Mean Corpuscular Hemoglobin Concent 31.5 L, Red Cell Distribution Width 16.4 H, Calcium Level 8.5 L Vital Signs Date Time Temp Pulse Resp B/P (MAP) Pulse Ox O2 Delivery O2 Flow Rate FiO2 12/21/18 14:00 97.1 83 20 142/68 (92) 96 12/18/18 18:45 Nasal Cannula 2 I&O- Last 24 Hours up to 6 AM 12/21/18 06:00 Intake Total 1200 ml Output Total 0 ml Balance 1200 ml MILADYS CEDENO MD Dec 21, 2018 19:10
[2018-12-21] MEDS: ROSUVASTATIN 10 MG TAB (CRESTOR) PO SCH (21:55)
[2018-12-21 22:00] VITALS: BP 152/69
[2018-12-22] MEDS: PERCOCET 5MG/325MG TAB PO PRN ×2 (01:56→08:56)
[2018-12-22] MEDS: SLF 3 ML SYR IV SCH ×2 (04:41→13:02)
[2018-12-22] MEDS: cefTRIAXone SOD 1 GM in D5W MINI-BAG PLUS 50 ML IV SCH (04:41)
[2018-12-22 06:00] VITALS: BP 138/63
[2018-12-22] MEDS: ADVAIR HFA 115/21MCG INHALER INH SCH (07:06)
[2018-12-22] MEDS: TIOTROPIUM INHALER/CAPSULE (SPIRIVA) INH SCH (07:06)
[2018-12-22 07:25] LABS: HEMATOCRIT 33.2 % (42.0-52.0); HEMOGLOBIN 10.4 g/dl (13.5-17.5); MEAN CORPUSCULAR HGB CONC 31.3 g/dl (32.0-36.5); MEAN CORPUSCULAR VOLUME 102.2 fl (80.0-96.0); RED BLOOD COUNT 3.25 10^6/uL (4.30-6.10); WHITE BLOOD COUNT 6.8 10^3/uL (4.0-10.0)
[2018-12-22 07:37] LABS: INR 1.61; PROTHROMBIN TIME 19.4 SECONDS (12.1-14.4)
[2018-12-22 07:42] LABS: PLATELET COUNT, AUTOMATED 89 10^3/uL (150-450)
[2018-12-22 07:50] LABS: BLOOD UREA NITROGEN 18 MG/DL (7-18); C REACTIVE PROTEIN QUANTITATIV 1.13 MG/DL (0.00-0.30); CALCIUM LEVEL 8.5 MG/DL (8.8-10.2); CARBON DIOXIDE LEVEL 28 MEQ/L (21-32); CHLORIDE LEVEL 104 MEQ/L (98-107); CREATININE FOR GFR 0.75 MG/DL (0.70-1.30); GLOMERULAR FILTRATION RATE > 60.0 (>35); GLUCOSE, FASTING 99 MG/DL (70-100); POTASSIUM SERUM 3.5 MEQ/L (3.5-5.1); SODIUM LEVEL 137 MEQ/L (136-145)
[2018-12-22] MEDS: PANTOPRAZOLE 40MG TAB (PROTONIX) PO SCH (08:55)
[2018-12-22] MEDS: FUROSEMIDE 40 MG TAB PO SCH (08:56)
[2018-12-22 08:57] VITALS: BP 138/63
[2018-12-22] MEDS: METOPROLOL SUCC (TopROL XL) 50MG **XL** TAB PO SCH (08:57)
[2018-12-22] MEDS: GABAPENTIN 300 MG CAP PO SCH (08:57)
[2018-12-22 14:00] VITALS: BP 170/90
--- NOTE | 2018-12-22 15:53 | DSES ---
DATE OF ADMISSION: 12/18/2018 DATE OF DISCHARGE: 12/22/2018 PRIMARY CARE PROVIDER: Anna Garcia MD MECHANISM INSPECTOR: Aleoj Dean DPM FINAL DIAGNOSES: 1. Left foot cellulitis and hematoma. 2. History of coronary arterial disease with coronary artery bypass graft (CABG). 3. History of diastolic congestive heart failure. 4. Chronic obstructive pulmonary disease (COPD). 5. Hypertension. 6. Prostate cancer. 7. Atrial fibrillation. 8. History of idiopathic thrombocytopenia purpura. 9. History of monoclonal gammopathy of undetermined significance (MGUS). 10. Gastroesophageal reflux disease (GERD). HISTORY OF PRESENT ILLNESS: This is an 83-year-old male patient with underlying medical history of coronary arterial disease status post stent and CABG, COPD, hypertension, dyslipidemia, diastolic congestive heart failure, benign prostatic hypertrophy (BPH), prostate cancer status post radiation, idiopathic thrombocytopenic purpura (ITP), MGUS, follows hematology, also atrial fibrillation on anticoagulation, presented to the emergency room with worsening pain and swelling in duration, erythema of the patient's left lower extremity and the dorsum of the foot. The patient reported sustaining injury when dropping a bottle on the dorsum of the left foot about 7-8 days ago. The patient stated a bottle fell on his foot causing redness, but over the past few days, the redness progressed to worsening, spreading up the patient's moyer and midleg. Was seen in the emergency room. Was initially discharged on Keflex. With worsening condition, subsequently returned. Ultrasound shows a fluid collection, possible hematoma versus abscess. Denies any fever or chills. Denies any cough, chest pain, shortness of breath, urinary complaint, constipation, diarrhea. The patient has a history of ITP with thrombocytopenia, as well as on Coumadin for atrial fibrillation. HOSPITAL COURSE: The patient admitted to the hospital. Initially, started on antibiotics. MRI was done showing no evidence of osteo. Podiatry was consulted. Coumadin is initially on hold. International normalized ratio (INR) was monitored. The patient's fluid collection was drained by podiatry. Antibiotics were continued. The patient is independent in the room, able to ambulate, tolerating oral. The case discussed with Dr. Dean, who is comfortable with discharging the patient. Followup with Dr. Dean on Sunday for further wound care. VITAL SIGNS: Temperature 97.6, pulse 81, respiration 18, blood pressure 138/63, pulse oximetry 95% on room air. LABORATORY: WBC 6.8, hemoglobin and hematocrit 10.4/33.2, platelets 89. Chemistry: Sodium 137, potassium 3.5, chloride 104, bicarbonate 28, BUN 18, creatinine 0.75. PHYSICAL EXAMINATION: GENERAL: The patient alert, in no acute distress. HEENT: Normocephalic, atraumatic. PULMONARY: Bilateral clear. CARDIAC: Irregularly irregular, S1, S2. ABDOMEN: Soft, nontender. Positive bowel sounds. EXTREMITIES: Left foot, dressing clean, dry, and intact. Sensation intact. Warmth. Dorsalis pedis (DP)/posterior tibialis (PT) pulses intact. DISCHARGE MEDICATION: - cefdinir 300 mg by mouth twice a day for 7 days - Percocet 5 mg/325 mg combination every 6 hours as needed - albuterol inhalation four times a day as needed - Nexium 40 mg by mouth daily - Flonase nasal spray as needed - Lasix 40 mg by mouth daily - gabapentin 600 mg by mouth daily in the morning and 1200 mg by mouth nightly - GI cocktail as needed - metoprolol succinate 50 mg by mouth daily - sublingual nitroglycerin 0.4 mg sublingual as needed - Restasis eyedrops 0.05% twice a day - Crestor 20 mg by mouth nightly - Advair 115 21 mcg inhalation twice a day - saline nasal spray four times a day as needed - spironolactone 25 mg by mouth twice a day as needed for swelling - Spiriva inhalation daily - Coumadin 6 mg by mouth daily DISCHARGE INSTRUCTIONS: Please see primary care provider in 5 days. Please check international normalized ratio (INR) with primary care provider. Please see Dr. Dean on Sunday. Return if symptoms worsen. Fall precautions.
== END 2018-12-22 14:50 | disposition home health service (06) | DRG 603 ==
LOC: M ED 21:20 → M ED INP 12-18 01:50 → M PCU 12-18 19:06 → M MS5PR 12-20 15:15
PROVIDERS: ADMIT Internal Medicine; ATTEND Hospitalist
PROC: 0Y9N0ZZ Drainage of Left Foot, Open Approach (ICD-10-PCS; principal; 2018-12-18 09:31)
DX: L03.116 Cellulitis of left lower limb (principal); I50.32 Chronic diastolic (congestive) heart failure; D69.3 Immune thrombocytopenic purpura; I25.10 Atherosclerotic heart disease of native coronary artery without angina pectoris; J44.9 Chronic obstructive pulmonary disease, unspecified; S90.32XA Contusion of left foot, initial encounter; I11.0 Hypertensive heart disease with heart failure; I48.91 Unspecified atrial fibrillation; E78.5 Hyperlipidemia, unspecified; N40.0 Benign prostatic hyperplasia without lower urinary tract symptoms; D47.2 Monoclonal gammopathy; Z85.46 Personal history of malignant neoplasm of prostate; Z92.3 Personal history of irradiation; Z95.5 Presence of coronary angioplasty implant and graft; Z90.5 Acquired absence of kidney; Z79.899 Other long term (current) drug therapy; Z87.891 Personal history of nicotine dependence; W20.8XXA Other cause of strike by thrown, projected or falling object, initial encounter; Y92.009 Unspecified place in unspecified non-institutional (private) residence as the place of occurrence of the external cause

== ENCOUNTER → 2019-01-20 | Outpatient (REF) | payer MEDICARE ==
[~2019-01-20] MED LIST changes: +ALBU83IN INH; +CEFD1CAP8 PO; +CEPH500C PO; +FLON1SPR; +GI COCKTAIL PO; +METO1TAB7 PO; +PERCOCET PO; +ROSU20TA4 PO; +VANC1CAP7 PO; +WARF-58 PO
[2019-01-20 23:30] LABS: CLOSTRIDIUM DIFFICILE PCR POSITIVE (NEGATIVE)
== END ==
LOC: M LAB REF 10:05
PROVIDERS: ATTEND Internal Medicine Gastroenterology
DX: R19.7 Diarrhea, unspecified (principal)

== ENCOUNTER → 2019-02-11 | Outpatient (CLI) | payer MEDICARE ==
[~2019-02-11] MED LIST changes: -ASPI1TAB PO; +ASPI81TA26 PO; +CRES10TA PO; -CRES10TA32 PO; +GASTROGRAFIN SOLUTION 30ML (Q9963) As Ordered ONE; +ISOVUE-370 76% 100ML VIAL (Q9967) As Ordered ONE; +PRED-351 PO; -PRED10TA PO; +TOPR50TA PO; -TOPR50TA23 PO
--- NOTE | 2019-02-11 19:22 | REP ---
CT abdomen and pelvis with out IV but with oral contrast: History: Cirrhosis. Autoimmune hepatitis. Cholelithiasis. Comparison CT study November 17, 2017. CT findings: Digital preliminary fox farmer radiograph demonstrates clips in the right lower quadrant and in the cardial region. Bowel gas pattern is unremarkable. The lung bases are clear. The liver shows a micronodular contour consistent with a history of cirrhosis. It is not felt to be enlarged. The spleen is normal in size as well. No adrenal lesion is seen. Pancreas shows no abnormality. The there is a calcified gallstone in the gallbladder. The right kidney is surgically absent. The left kidney appears morphologically intact. No hydronephrosis is seen. No retroperitoneal mass or adenopathy is seen. Vascular calcification is noted. Small and large intestinal bowel loops are unremarkable. There are clips in right lower quadrant suggestive of a previous appendectomy. The appendix is not identified. Urinary bladder is unremarkable. There are dystrophic calcifications in the prostate gland which is somewhat small. Bone window settings show no bony destructive lesion. There is a bone island in the left iliac bone and there are degenerative spondylosis changes. Impression: Cholelithiasis. Status post right nephrectomy and apparently appendectomy. Dystrophic prostate calcifications. A micronodular liver contour consistent with the history of cirrhosis. Findings essentially unchanged from the November 17, 2017 prior study. Electronically Signed by Vlad Driver MD 02/11/2019 08:40 P
== END ==
LOC: M RAD 12:19
PROVIDERS: ATTEND Internal Medicine Gastroenterology
DX: K75.4 Autoimmune hepatitis (principal)
CPT/HCPCS: 74176; Q9963

== ENCOUNTER 2019-05-02 16:33 | Inpatient (IN) | payer MEDICARE ==
[~2019-05-02] VITALS: Ht 172.7 cm; Wt 99.6 kg
[~2019-05-02 16:33] MED LIST changes: -GASTROGRAFIN SOLUTION 30ML (Q9963) As Ordered ONE; -ISOVUE-370 76% 100ML VIAL (Q9967) As Ordered ONE
[2019-05-02] MEDS ORDERED: ASPIRIN 81 MG CHEW TABLET PO ONE (16:45)
[2019-05-02] MEDS ORDERED: FUROSEMIDE 40 MG/4 ML VIAL (J1940) IV ONE (16:45)
--- NOTE | 2019-05-02 17:15 | REP ---
Portable chest x-ray: Two views. History: Chest pain. Comparison study: December 14, 2018. Findings: EKG monitoring electrodes and oxygen delivery tubing are seen. Median sternotomy wires are noted. Mildly prominent heart is seen unchanged. Pulmonary vasculature is cephalized as before. There is no evidence of pleural effusion. Interstitial markings are slightly prominent in the bases, more so than on December 14, 2018 study. No acute infiltrate is seen. Impression: Cardiomegaly, cephalization and bibasilar interstitial changes consistent with CHF. No focal infiltrate is appreciated. Electronically Signed by Vlad Driver MD 05/02/2019 06:41 P
[2019-05-02 17:27] LABS: BASO % 0.3 % (0.0-1.0); EOS % 0.3 % (0.0-3.0); HEMATOCRIT 35.5 % (42.0-52.0); HEMOGLOBIN 11.4 g/dl (13.5-17.5); LYMPH # 0.5 10^3/uL (1.5-4.5); LYMPH % 6.3 % (24.0-44.0); MEAN CORPUSCULAR HGB CONC 32.1 g/dl (32.0-36.5); MEAN CORPUSCULAR VOLUME 99.7 fl (80.0-96.0); MONO # 0.5 10^3/uL (0.0-0.8); MONO % 6.6 % (0.0-5.0); NEUTROPHILS # 6.2 10^3/uL (1.8-7.7); NEUTROPHILS % 85.8 % (36.0-66.0); RED BLOOD COUNT 3.56 10^6/uL (4.30-6.10); WHITE BLOOD COUNT 7.3 10^3/uL (4.0-10.0)
[2019-05-02 17:35] LABS: INR 2.12; PROTHROMBIN TIME 23.5 SECONDS (11.8-14.0)
[2019-05-02 17:52] LABS: PLATELET COUNT, AUTOMATED 65 10^3/uL (150-450)
[2019-05-02 18:00] LABS: ALBUMIN 2.9 GM/DL (3.2-5.2); ALT/SGPT 14 U/L (12-78); BILIRUBIN,DIRECT 0.4 MG/DL (0.0-0.2); BILIRUBIN,TOTAL 1.1 MG/DL (0.2-1.0); BLOOD UREA NITROGEN 20 MG/DL (7-18); CALCIUM LEVEL 9.2 MG/DL (8.8-10.2); CARBON DIOXIDE LEVEL 28 MEQ/L (21-32); CHLORIDE LEVEL 104 MEQ/L (98-107); CK-MB VALUE MASS < 1.0 NG/ML (<3.6); CPK CREATINE PHOSPHOKINASE 187 U/L (39-308); CREATININE FOR GFR 1.13 MG/DL (0.70-1.30); GLOMERULAR FILTRATION RATE > 60.0 (>35); GLUCOSE, FASTING 113 MG/DL (70-100); LIPASE 71 U/L (73-393); MB/CK RELATIVE INDEX 0.53 (< OR =4); NT-PRO BNP 1130 PG/ML (<450); POTASSIUM SERUM 3.6 MEQ/L (3.5-5.1); SODIUM LEVEL 139 MEQ/L (136-145); TOTAL PROTEIN 8.2 GM/DL (6.4-8.2); TROPONIN I 0.02 NG/ML (< 0.10)
[2019-05-02] MEDS ORDERED: FUROSEMIDE 100 MG/10 ML VIAL (J1940) IV ONE (19:00)
[2019-05-02] MEDS: ADVAIR HFA 115/21MCG INHALER INH SCH (20:00)
[2019-05-02] MEDS ORDERED: WARF-58 PO (20:28)
[2019-05-02] MEDS ORDERED: ALBU83IN NEB (20:29)
[2019-05-02] MEDS ORDERED: CRES20TA2 PO (21:22)
[2019-05-02] MEDS ORDERED: ALBUTEROL SULFATE 2.5 MG/0.5 ML INH NEB SOLN NEB PRN (21:45)
--- NOTE | 2019-05-02 22:20 | HPEPDOC ---
General Date of Admission 05/02/19 Date of Service: May 02, 2019 Chief Complaint The patient is a 83-year-old male admitted with a reason for visit of CHF. Source: Patient, Family, RN/MD, Old records Exam Limitations: No limitations Severity: Moderate History of Present Illness 83 year old male with PMH of ITP with chronic thrombocytopenia, IgG kappa monoclonal gammopathy, Diastolic CHF, CAD s/p CABG, GERD, Hypertension, BPH, A trial fibrillation, COPD, Hyperlipidemia, OA. H/o prostate ca s/p RT, H/o skin cancer of face, h/o basal cell cancer of several sites presented to the ED with 3 days history of increasing SOB and exertional dyspnea. Patient says that the breathing became really bad 3 days ago he had orthopnea, along with cough with whitish phlegm production, he also has been having some chest tightness. He has been using his inhalers and nebs at home with no relief. His diuretics were increased by his PMD this week still has not been making much urine. Today he could not lay down flat and could hardly ambulate to the bathroom as was gasping for air on minimal activities. CXR showed Cardiomegaly, cephalization and bibasilar interstitial changes consistent with CHF. Home Medications Scheduled Cyclosporine (Restasis) 0.05 % Emu, 1 DROP OU BID, (Reported) Fluticasone Propion/Salmeterol (Advair Hfa 115-21 Mcg Inhaler) 1 Aer Aer, 2 PUFF INH BID, (Reported) Furosemide (Furosemide) 40 Mg Tab, 40 MG PO BID, (Reported) Gabapentin (Gabapentin) 600 Mg Tab, 600 MG PO DAILY, (Reported) Gabapentin (Gabapentin) 600 Mg Tab, 1,200 MG PO QHS, (Reported) Metoprolol Succinate (Metoprolol Succinate) 50 Mg Tab, 50 MG PO DAILY, (Reported) Rosuvastatin Calcium (Crestor) 20 Mg Tablet, 20 MG PO QHS, (Reported) Warfarin Sodium (Warfarin Sodium) 3 Mg Tab, 6 MG PO 6XWK, (Reported) TAKES ON SUNDAY, SUNDAY, SUNDAY, SUNDAY, SUNDAY, AND SUNDAY Warfarin Sodium (Warfarin Sodium) 3 Mg Tablet, 3 MG PO 1XWK, (Reported) TAKES ON SUNDAY Scheduled PRN Albuterol Sulf (Albuterol Sulfate) 2.5 Mg/3 Ml Vial.neb, 1 VIAL NEB Q4H PRN for wheezing, (Reported) Albuterol Sulfate (Proair Hfa) 108 Mcg/Act Aer, 2 PUFF INH QID PRN for SHORTNESS OF BREATH, (Reported) Esomeprazole Magnesium (Nexium) 40 Mg Cap, 40 MG PO DAILY PRN for ACID REFLUX, (Reported) Nitroglycerin (Nitrostat) 0.4 Mg Subl, 0.4 MG SL NITRO PRN for CHEST PAIN, (Reported) Spironolactone (Spironolactone) 25 Mg Tab, 25 MG PO BID PRN for SWELLING, (Reported) Allergies Coded Allergies: No Known Allergies (Verified , 07/15/17) Past Medical History Medical History ITP with chronic thrombocytopenia, IgG kappa monoclonal gammopathy, Diastolic CHF, CAD s/p CABG, GERD, Hypertension, BPH, Atrial fibrillation, COPD, Hyperlipidemia, OA. H/o prostate ca s/p RT, H/o skin cancer of face, h/o basal cell cancer of several sites, Surgical History Status post nephrectomy due to an injury in 1946, appendectomy in 2000, angioplasty and stent implantation in 2001, left coronary artery bypass surgery in 2007, Mohs surgery to the nose for skin cancer [id number]. Family History Significant Family History: Cancer (colon cancer in father, brother and one sister, breat cancer in another sister), Heart disease Social History * Smoker: former Smoker Alcohol: Denies Drugs: denies A-FIB/CHADSVASC A-FIB History Current/History of A-Fib/PAF?: Yes Current PO Anticoag Therapy: Yes Review of Systems Constitutional: Reports: Weakness, Fatigue; Denies: Chills, Fever, Night Sweats Eyes: Denies: Pain, Vision change Pulmonary: Reports: Dyspnea, Cough Cardiovascular: Reports: Chest Pain, Orthopnea, Edema Gastrointestinal: Reports: Diarrhea; Denies: Nausea, Vomiting, Abdominal Pain Genitourinary: Denies: Dysuria, Frequency, Incontinence, Retention Hematologic: Reports: Bruising; Denies: Bleeding Excessively Musculoskeletal: Denies: Neck Pain, Back Pain, Joint Pain, Muscle Pain Neurological: Denies: Weakness, Numbness, Change in speech, Confusion Physical Examination General Exam: Positive: Alert, Cooperative, Moderate Distress Eye Exam: Positive: PERRLA, Conjunctiva & lids normal, EOMI; Negative: Sclera icteric ENT Exam: Positive: Atraumatic, Mucous membr. moist/pink, Pharynx Normal Neck Exam: Positive: Supple, JVD Chest Exam: Positive: Rales, Rhonchi, Wheezing, Diminished Heart Exam: Positive: Rate Normal, Irregular Rhythm, Normal S1, Normal S2; Negative: Regular Rhythm, Gallops, Murmurs, Rubs Telemetry: Positive: Atrial fibrillation Abdomen Exam: Positive: Normal bowel sounds, Soft; Negative: Tenderness, Hepatospenomegaly Extremity Exam: Positive: Edema, Other (chronic venous stasis changes) Skin Exam: Positive: Nl turgor and temperature; Negative: Breakdown, Lesion Neuro Exam: Positive: Normal Speech, Strength at 5/5 X4 ext, Sensation Intact Psych Exam: Positive: Mental status NL, Mood NL, Oriented x 3 Vital Signs Vital Signs Date Time Temp Pulse Resp B/P (MAP) Pulse Ox O2 Delivery O2 Flow Rate FiO2 05/02/19 19:00 86 20 126/62 (83) 92 Nasal Cannula 3.0 05/02/19 16:51 100.1 Laboratory Data Labs 24H Laboratory Tests 2 05/02/19 17:00: Lactic Acid Level 1.7 05/02/19 17:06: Immature Granulocyte % (Auto) 0.7, White Blood Count 7.3, Red Blood Count 3.56L, Hemoglobin 11.4L, Hematocrit 35.5L, Mean Corpuscular Volume 99.7H, Mean Corpuscular Hemoglobin 32.0, Mean Corpuscular Hemoglobin Concent 32.1, Red Cell Distribution Width 17.6H, Platelet Count 65L, Neutrophils (%) (Auto) 85.8H, Lymphocytes (%) (Auto) 6.3L, Monocytes (%) (Auto) 6.6H, Eosinophils (%) (Auto) 0.3, Basophils (%) (Auto) 0.3, Neutrophils # (Auto) 6.2, Lymphocytes # (Auto) 0.5L, Monocytes # (Auto) 0.5, Eosinophils # (Auto) 0.0, Basophils # (Auto) 0.0, Nucleated Red Blood Cells % (auto) 0.0, Immature Platelet Fraction 13.1H, Prothrombin Time 23.5H, Prothromb Time International Ratio 2.12, Anion Gap 7L, Glomerular Filtration Rate > 60.0, Calcium Level 9.2, Aspartate Amino Transf (A ST/SGOT) 22, Alanine Aminotransferase (ALT/SGPT) 14, Alkaline Phosphatase 72, Total Bilirubin 1.1H, Direct Bilirubin 0.4H, Total Creatine Kinase 187, Creatine Kinase MB < 1.0, Creatine Kinase MB Relative Index 0.53, Troponin I 0.02, VD-Tnk-C-Type Natriuretic Peptide 1130H, Total Protein 8.2, Albumin 2.9L, Albumin/Globulin Ratio 0.55L, Lipase 71L 05/02/19 18:01: POC pH (Misc Panel) 7.351, POC Base Excess (Misc Panel) -1.0, POC Saturated Percent O2 (Misc) 94L, POC pO2 (Misc Panel) 76.0L, POC pCO2 (Misc Panel) 43.6, POC HCO3 (Misc Panel) 24.1, POC Total CO2 (Misc Panel) 25.0 CBC/BMP Laboratory Tests 05/02/19 17:06 Red Blood Count 3.56 L, Mean Corpuscular Volume 99.7 H, Mean Corpuscular Hemoglobin 32.0, Mean Corpuscular Hemoglobin Concent 32.1, Red Cell Distribution Width 17.6 H, Neutrophils (%) (Auto) 85.8 H, Lymphocytes (%) (Auto) 6.3 L, Monocytes (%) (Auto) 6.6 H, Eosinophils (%) (Auto) 0.3, Basophils (%) (Auto) 0.3, Neutrophils # (Auto) 6.2, Lymphocytes # (Auto) 0.5 L, Monocytes # (Auto) 0.5, Eosinophils # (Auto) 0.0, Basophils # (Auto) 0.0 Microbiology Microbiology 05/02/19 Blood Culture, Received Pending 05/02/19 Blood Culture, Received Pending Assessment/Plan 83 year old male with PMH of ITP with chronic thrombocytopenia, IgG kappa monoclonal gammopathy, Diastolic CHF, CAD s/p CABG, GERD, Hypertension, BPH, Atrial fibrillation, COPD, Hyperlipidemia, OA. H/o prostate ca s/p RT, H/o skin cancer of face, h/o basal cell cancer of several sites presented to the ED with 3 days history of increasing SOB and exertional dyspnea. Patient says that the breathing became really bad 3 days ago he had orthopnea, along with cough with whitish phlegm production, he also has been having some chest tightness. He has been using his inhalers and nebs at home with no relief. His diuretics were increased by his PMD this week still has not been making much urine. Today he could not lay down flat and could hardly ambulate to the bathroom as was gasping for air on minimal activities. CXR showed Cardiomegaly, cephalization and bibasilar interstitial changes consistent with CHF. Diastolic CHF exacerbation IV lasix q 8 hours continue spironolactone monitor I/Os 2 gram sodium diet , fluid restriction 1.5 liters. Last echo from 2014 will repeat Oxygen supplementation COPD exacerbation possibly due to pulmonary congestion will continue his advair, frequents nebs. diuresis as above. Atrial fibrillation rate controlled continue metoprolol with hold parameters, coumadin INR therapeutic Hypertension continue metoprolol, diuretics. ITP with chronic thombocytopenia slightly lower than baseline. will continue to monitor continue coumadin. CAD s/p CABG continue betablocker, statin, no ASA due to ITP. Hyperlipidemia continue statin GERD continue PPI BPH bladder scan prn and straight cath if > 250 Plan / VTE VTE Prophylaxis Ordered?: Yes AYE GONSALEZ MD May 02, 2019 20:26
[2019-05-02] MEDS: GABAPENTIN 300 MG CAP PO SCH (23:47)
[2019-05-02] MEDS: ROSUVASTATIN 10 MG TAB (CRESTOR) PO SCH (23:47)
[2019-05-03 00:35] VITALS: BP 132/92
[2019-05-03] MEDS: FUROSEMIDE 100 MG/10 ML VIAL (J1940) IV SCH ×3 (00:58→17:01)
[2019-05-03] MEDS: WARFARIN SOD 3 MG TAB PO SCH ×2 (00:58→17:01)
[2019-05-03] MEDS ORDERED: FUROSEMIDE 100 MG/10 ML VIAL (J1940) IV SCH (01:00)
[2019-05-03] MEDS: ALBUTEROL SULFATE 2.5 MG/0.5 ML INH NEB SOLN NEB SCH ×3 (01:14→15:04)
[2019-05-03 04:00] VITALS: BP 141/65
[2019-05-03 05:46] LABS: BASO % 0.2 % (0.0-1.0); EOS # 0.1 10^3/uL (0.0-0.50); EOS % 1.2 % (0.0-3.0); HEMATOCRIT 37.3 % (42.0-52.0); HEMOGLOBIN 11.8 g/dl (13.5-17.5); LYMPH # 0.6 10^3/uL (1.5-4.5); LYMPH % 10.4 % (24.0-44.0); MEAN CORPUSCULAR HEMOGLOBIN 31.8 pg (27.0-33.0); MEAN CORPUSCULAR HGB CONC 31.6 g/dl (32.0-36.5); MEAN CORPUSCULAR VOLUME 100.5 fl (80.0-96.0); MONO # 0.5 10^3/uL (0.0-0.8); MONO % 9.3 % (0.0-5.0); NEUTROPHILS # 4.5 10^3/uL (1.8-7.7); NEUTROPHILS % 78.4 % (36.0-66.0); RED BLOOD COUNT 3.71 10^6/uL (4.30-6.10); WHITE BLOOD COUNT 5.7 10^3/uL (4.0-10.0)
[2019-05-03 06:00] LABS: PLATELET COUNT, AUTOMATED 64 10^3/uL (150-450)
[2019-05-03 06:04] LABS: BLOOD UREA NITROGEN 21 MG/DL (7-18); CALCIUM LEVEL 9.1 MG/DL (8.8-10.2); CARBON DIOXIDE LEVEL 31 MEQ/L (21-32); CHLORIDE LEVEL 103 MEQ/L (98-107); CREATININE FOR GFR 1.09 MG/DL (0.70-1.30); GLOMERULAR FILTRATION RATE > 60.0 (>35); GLUCOSE, FASTING 98 MG/DL (70-100); MAGNESIUM LEVEL 1.9 MG/DL (1.8-2.4); POTASSIUM SERUM 3.6 MEQ/L (3.5-5.1); SODIUM LEVEL 140 MEQ/L (136-145)
[2019-05-03 06:08] LABS: INR 2.47; PROTHROMBIN TIME 26.6 SECONDS (11.8-14.0)
[2019-05-03] MEDS: ADVAIR HFA 115/21MCG INHALER INH SCH ×2 (07:51→19:36)
[2019-05-03 08:00] VITALS: BP 140/70
[2019-05-03] MEDS ORDERED: ENOXAPARIN 30 MG/0.3 ML SYR (J1650) SC SCH (09:00)
[2019-05-03] MEDS: SPIRONOLACTONE 25 MG TAB PO SCH ×2 (09:41→17:01)
[2019-05-03] MEDS: GABAPENTIN 300 MG CAP PO SCH ×2 (09:41→21:56)
[2019-05-03] MEDS: PANTOPRAZOLE 40MG TAB (PROTONIX) PO SCH (09:42)
[2019-05-03] MEDS: METOPROLOL SUCC (TopROL XL) 50MG **XL** TAB PO SCH (09:42)
--- NOTE | 2019-05-03 11:18 | ECGEPIP ---
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
[2019-05-03 12:00] VITALS: BP 136/61
--- NOTE | 2019-05-03 13:07 | IPNPDOC ---
Subjective Date Seen The patient was seen on 05/03/19. Subjective Chief Complaint/HPI Patient seen and examined at the bedside. Reports that he is feeling better this morning and less short of breath. States that he has been urinating frequently due to the diuretic therapy. Denies any chest pain, palpitations, or abdominal pain. Objective Physical Examination General Exam: Positive: Alert, Cooperative, No Acute Distress ENT Exam: Positive: Atraumatic, Mucous membr. moist/pink Chest Exam: Positive: Wheezing, Diminished Heart Exam: Positive: Rate Normal, Normal S1, Normal S2; Negative: Regular Rhythm Abdomen Exam: Positive: Soft; Negative: Tenderness Extremity Exam: Positive: Edema, Other (chronic venous stasis changes) Psych Exam: Positive: Oriented x 3 Assessment /Plan Plan/VTE VTE Prophylaxis Ordered?: Yes Plan Decompensated Diastolic CHF Physical exam, and CXR on admission consistent with CHF Cont IV lasix q 8 hours, patient maintaining net negative balance Continue spironolactone Monitor I/Os 2 gram sodium diet , fluid restriction 1.5 liters. 2D ECHO pending We will cont to monitor the patient's respiratory/volume status COPD exacerbation 2/2 Above Continue volume optimization with IV diuretic therapy Continue advair, frequents nebs. We will down titrate supplemental oxygen as tolerated Atrial fibrillation Continue metoprolol with hold parameters, coumadin INR therapeutic Hypertension Continue metoprolol, diuretics. ITP with chronic thombocytopenia slightly lower than baseline, no indication for transfusion at this time will continue to monitor CAD s/p CABG continue metoprolol, statin, no ASA due to ITP. Hyperlipidemia continue statin GERD continue PPI DVT prophylaxis On Coumadin VS, I&O, 24H, Fishbone Vital Signs/I&O Vital Signs Date Time Temp Pulse Resp B/P (MAP) Pulse Ox O2 Delivery O2 Flow Rate FiO2 05/03/19 09:42 95 140/70 05/03/19 08:00 98.9 18 98 3.0 05/03/19 00:15 Nasal Cannula I&O- Last 24 Hours up to 6 AM 05/03/19 06:00 Output Total 1430 ml Balance -1430 ml Laboratory Data 24H LABS Laboratory Tests 2 05/02/19 17:00: Lactic Acid Level 1.7 05/02/19 17:06: Immature Granulocyte % (Auto) 0.7, White Blood Count 7.3, Red Blood Count 3.56L, Hemoglobin 11.4L, Hematocrit 35.5L, Mean Corpuscular Volume 99.7H, Mean Corpuscular Hemoglobin 32.0, Mean Corpuscular Hemoglobin Concent 32.1, Red Cell Distribution Width 17.6H, Platelet Count 65L, Neutrophils (%) (Auto) 85.8H, Lymphocytes (%) (Auto) 6.3L, Monocytes (%) (Auto) 6.6H, Eosinophils (%) (Auto) 0.3, Basophils (%) (Auto) 0.3, Neutrophils # (Auto) 6.2, Lymphocytes # (Auto) 0.5L, Monocytes # (Auto) 0.5, Eosinophils # (Auto) 0.0, Basophils # (Auto) 0.0, Nucleated Red Blood Cells % (auto) 0.0, Immature Platelet Fraction 13.1H, Prothrombin Time 23.5H, Prothromb Time International Ratio 2.12, Anion Gap 7L, Glomerular Filtration Rate > 60.0, Calcium Level 9.2, Aspartate Amino Transf (AST/SGOT) 22, Alanine Aminotransferase (ALT/SGPT) 14, Alkaline Phosphatase 72, Total Bilirubin 1.1H, Direct Bilirubin 0.4H, Total Creatine Kinase 187, Creatine Kinase MB < 1.0, Creatine Kinase MB Relative Index 0.53, Troponin I 0.02, TC-Efw-Q-Type Natriuretic Peptide 1130H, Total Protein 8.2, Albumin 2.9L, Albumin/Globulin Ratio 0.55L, Lipase 71L 05/02/19 18:01: POC pH (Misc Panel) 7.351, POC Base Excess (Misc Panel) -1.0, POC Saturated Percent O2 (Misc) 94L, POC pO2 (Misc Panel) 76.0L, POC pCO2 (Misc Panel) 43.6, POC HCO3 (Misc Panel) 24.1, POC Total CO2 (Misc Panel) 25.0 05/03/19 05:24: Immature Granulocyte % (Auto) 0.5, White Blood Count 5.7, Red Blood Count 3.71L, Hemoglobin 11.8L, Hematocrit 37.3L, Mean Corpuscular Volume 100.5H, Mean Aidan uscular Hemoglobin 31.8, Mean Corpuscular Hemoglobin Concent 31.6L, Red Cell Distribution Width 17.6H, Platelet Count 64L, Neutrophils (%) (Auto) 78.4H, Lymphocytes (%) (Auto) 10.4L, Monocytes (%) (Auto) 9.3H, Eosinophils (%) (Auto) 1.2, Basophils (%) (Auto) 0.2, Neutrophils # (Auto) 4.5, Lymphocytes # (Auto) 0.6L, Monocytes # (Auto) 0.5, Eosinophils # (Auto) 0.1, Basophils # (Auto) 0.0, Nucleated Red Blood Cells % (auto) 0.0, Prothrombin Time 26.6H, Prothromb Time International Ratio 2.47, Anion Gap 6L, Glomerular Filtration Rate > 60.0, Calcium Level 9.1, Blood Urea Nitrogen 21H, Creatinine 1.09, Sodium Level 140, Potassium Level 3.6, Chloride Level 103, Carbon Dioxide Level 31, Magnesium Level 1.9 CBC/BMP Laboratory Tests 05/02/19 17:06 Red Blood Count 3.56 L, Mean Corpuscular Volume 99.7 H, Mean Corpuscular Hemoglobin 32.0, Mean Corpuscular Hemoglobin Concent 32.1, Red Cell Distribution Width 17.6 H, Neutrophils (%) (Auto) 85.8 H, Lymphocytes (%) (Auto) 6.3 L, Monocytes (%) (Auto) 6.6 H, Eosinophils (%) (Auto) 0.3, Basophils (%) (Auto) 0.3, Neutrophils # (Auto) 6.2, Lymphocytes # (Auto) 0.5 L, Monocytes # (Auto) 0.5, Eosinophils # (Auto) 0.0, Basophils # (Auto) 0.0 05/03/19 05:24 Red Blood Count 3.71 L, Mean Corpuscular Volume 100.5 H, Mean Corpuscular Hemoglobin 31.8, Mean Corpuscular Hemoglobin Concent 31.6 L, Red Cell Distribu tion Width 17.6 H, Neutrophils (%) (Auto) 78.4 H, Lymphocytes (%) (Auto) 10.4 L, Monocytes (%) (Auto) 9.3 H, Eosinophils (%) (Auto) 1.2, Basophils (%) (Auto) 0.2, Neutrophils # (Auto) 4.5, Lymphocytes # (Auto) 0.6 L, Monocytes # (Auto) 0.5, Eosinophils # (Auto) 0.1, Basophils # (Auto) 0.0, Calcium Level 9.1 Microbiology Microbiology 05/02/19 Blood Culture, Received Pending 05/02/19 Blood Culture, Received Pending BARTOLO MANCERA MD May 03, 2019 13:07
[2019-05-03 16:00] VITALS: BP 116/59
[2019-05-03 20:00] VITALS: BP 135/72
[2019-05-03] MEDS: ROSUVASTATIN 10 MG TAB (CRESTOR) PO SCH (21:56)
[2019-05-04] VITALS (7 sets, daily range): BP systolic 117–178; BP diastolic 58–98
[2019-05-04] MEDS: FUROSEMIDE 100 MG/10 ML VIAL (J1940) IV SCH ×4 (00:26→23:33)
[2019-05-04] MEDS: ALBUTEROL SULFATE 2.5 MG/0.5 ML INH NEB SOLN NEB SCH ×4 (01:02→23:21)
[2019-05-04 05:15] LABS: BASO % 0.2 % (0.0-1.0); EOS # 0.1 10^3/uL (0.0-0.50); EOS % 2.1 % (0.0-3.0); HEMATOCRIT 32.2 % (42.0-52.0); LYMPH # 0.7 10^3/uL (1.5-4.5); LYMPH % 17.2 % (24.0-44.0); MEAN CORPUSCULAR HEMOGLOBIN 30.3 pg (27.0-33.0); MEAN CORPUSCULAR HGB CONC 31.1 g/dl (32.0-36.5); MEAN CORPUSCULAR VOLUME 97.6 fl (80.0-96.0); MONO # 0.5 10^3/uL (0.0-0.8); MONO % 11.9 % (0.0-5.0); NEUTROPHILS # 2.9 10^3/uL (1.8-7.7); NEUTROPHILS % 68.4 % (36.0-66.0); WHITE BLOOD COUNT 4.3 10^3/uL (4.0-10.0)
[2019-05-04 05:19] LABS: PLATELET COUNT, AUTOMATED 68 10^3/uL (150-450)
[2019-05-04 05:29] LABS: INR 3.11
[2019-05-04 05:37] LABS: BLOOD UREA NITROGEN 26 MG/DL (7-18); CARBON DIOXIDE LEVEL 33 MEQ/L (21-32); CHLORIDE LEVEL 102 MEQ/L (98-107); CREATININE FOR GFR 1.18 MG/DL (0.70-1.30); GLOMERULAR FILTRATION RATE > 60.0 (>35); GLUCOSE, FASTING 89 MG/DL (70-100); MAGNESIUM LEVEL 1.9 MG/DL (1.8-2.4); SODIUM LEVEL 140 MEQ/L (136-145)
--- NOTE | 2019-05-04 06:32 | ECHO ---
DATE OF PROCEDURE: 05/03/2019 DATE OF : 1935 AGE: 83 REFERRING PROVIDER: Dr. Spring in [place], [place]. ROOM LOCATION: 3221 REASON FOR THE ECHOCARDIOGRAM: Heart failure. 2-D MEASUREMENTS: IVS: 0.9 cm LV: 1.0 cm LVPW: 5.7 cm LA: 4.5 cm Aorta: 3.4 cm RV: 2.8 cm DOPPLER MEASUREMENTS: Peak velocity across the aortic valve: 1.5 m/s Peak velocity across the LVOT: 1.1 m/s Mitral E: 0.9 IMPRESSION: 1. Normal left ventricular size, wall thickness, and normal global left ventricular systolic function. The estimated ventricular systolic ejection fraction is 60-65%. 2. Mildly enlarged left atrium. The right atrium also appear to be enlarged, moderate. The right ventricle is mildly enlarged limited view but with normal right ventricular free wall complexion. 3. The atrial septum appeared to be normal without evidence of defect or shunt. 4. Normal aortic root. 5. No pericardial effusion seen. 6. Mildly calcified aortic valve with normal leaflet excursion. The mitral valve, the tricuspid valve, and the pulmonic valve appeared to be normal. The proximal pulmonary artery branches also appear to be normal. 7. The inferior vena cava was not well visualized. DOPPLER: It detects mild to moderate mitral regurgitation, moderate tricuspid regurgitation. The calculated pulmonary artery systolic pressure varies between 40-50 mmHg. Assessment of the left ventricular diastolic function was limited in view of the underlying arrhythmias. IMPRESSION: 1. Normal global left ventricular systolic function. Subjectively, left ventricular size appeared to be normal. 2. Aortic valve sclerosis without stenosis or aortic radiation. 3. Mild to moderate mitral regurgitation with a mildly enlarged left atrium. 4. Mild to moderate tricuspid regurgitation with moderate pulmonary hypertension and dilated right heart chambers. 5. The inferior vena cava may be enlarged but with good respiratory variations. [facility]
[2019-05-04] MEDS: ADVAIR HFA 115/21MCG INHALER INH SCH ×2 (07:26→20:51)
[2019-05-04] MEDS: POTASSIUM CHLORIDE 10 MEQ SR TABLET PO SCH ×2 (08:26→22:25)
[2019-05-04] MEDS: PANTOPRAZOLE 40MG TAB (PROTONIX) PO SCH (08:27)
[2019-05-04] MEDS: SPIRONOLACTONE 25 MG TAB PO SCH ×2 (08:27→17:33)
[2019-05-04] MEDS: GABAPENTIN 300 MG CAP PO SCH ×2 (08:27→22:24)
[2019-05-04] MEDS: METOPROLOL SUCC (TopROL XL) 50MG **XL** TAB PO SCH (08:27)
--- NOTE | 2019-05-04 11:14 | IPNPDOC ---
Subjective Date Seen The patient was seen on 05/04/19. Subjective Chief Complaint/HPI Patient seen and examined at the bedside. Reports that his respiratory status is improving, as well as the lower extremity edema. Denies any chest pain or palpitations. No acute overnight events noted. Objective Physical Examination General Exam: Positive: Alert, Cooperative, No Acute Distress ENT Exam: Positive: Atraumatic, Mucous membr. moist/pink Chest Exam: Positive: Wheezing, Diminished Heart Exam: Positive: Rate Normal, Normal S1, Normal S2; Negative: Regular Rhythm Abdomen Exam: Positive: Soft; Negative: Tenderness Extremity Exam: Positive: Edema, Other (chronic venous stasis changes) Psych Exam: Positive: Oriented x 3 Assessment /Plan Plan/VTE VTE Prophylaxis Ordered?: Yes Plan Decompensated Diastolic CHF Physical exam, and CXR on admission consistent with CHF Cont IV lasix q 8 hours, patient maintaining net negative balance Continue spironolactone Monitor I/Os 2 gram sodium diet , fluid restriction 1.5 liters. 2D ECHO with preserved left ventricular ejection fraction noted We will cont to monitor the patient's respiratory/volume status COPD exacerbation 2/2 Above Continue volume optimization with IV diuretic therapy Continue advair, frequents nebs. IV Solu-Medrol started We will down titrate supplemental oxygen as tolerated Atrial fibrillation Continue metoprolol with hold parameters, coumadin INR therapeutic Hypertension Continue metoprolol, diuretics. ITP with chronic thrombocytopenia slightly lower than baseline, no indication for transfusion at this time will continue to monitor CAD s/p CABG continue metoprolol, statin, no ASA due to ITP Hyperlipidemia continue statin GERD continue PPI DVT prophylaxis On Coumadin VS, I&O, 24H, Fishbone Vital Signs/I&O Vital Signs Date Time Temp Pulse Resp B/P (MAP) Pulse Ox O2 Delivery O2 Flow Rate FiO2 05/04/19 08:27 83 136/63 05/04/19 08:00 98.7 18 94 3.0 05/03/19 00:15 Nasal Cannula I&O- Last 24 Hours up to 6 AM 05/04/19 06:00 Intake Total 1560 ml Output Total 1200 ml Balance 360 ml Laboratory Data 24H LABS Laboratory Tests 2 05/04/19 04:45: Immature Granulocyte % (Auto) 0.2, White Blood Count 4.3, Red Blood Count 3.30L, Hemoglobin 10.0L, Hematocrit 32.2L, Mean Corpuscular Volume 97.6H, Mean Corpuscular Hemoglobin 30.3, Mean Corpuscular Hemoglobin Concent 31.1L, Red Cell Distribution Width 17.6H, Platelet Count 68L, Neutrophils (%) (Auto) 68.4H, Lymphocytes (%) (Auto) 17.2L, Monocytes (%) (Auto) 11.9H, Eosinophils (%) (Auto) 2.1, Basophils (%) (Auto) 0.2, Neutrophils # (Auto) 2.9, Lymphocytes # (Auto) 0.7L, Monocytes # (Auto) 0.5, Eosinophils # (Auto) 0.1, Basophils # (Auto) 0.0, Nucleated Red Blood Cells % (auto) 0.0, Immature Platelet Fraction 10.6, Prothrombin Time 32.0H, Prothromb Time International Ratio 3.11, Anion Gap 5L, Glomerular Filtration Rate > 60.0, Blood Urea Nitrogen 26H, Creatinine 1.18, Sodium Level 140, Potassium Level 3.0L, Chloride Level 102, Carbon Dioxide Level 33H, Calcium Level 9.0, Magnesium Level 1.9 CBC/BMP Laboratory Tests 05/04/19 04:45 Red Blood Count 3.30 L, Mean Corpuscular Volume 97.6 H, Mean Corpuscular Hemoglobin 30.3, Mean Corpuscular Hemoglobin Concent 31.1 L, Red Cell Distribution Width 17.6 H, Neutrophils (%) (Auto) 68.4 H, Lymphocytes (%) (Auto) 17.2 L, Monocytes (%) (Auto) 11.9 H, Eosinophils (%) (Auto) 2.1, Basophils (%) (Auto) 0.2, Neutrophils # (Auto) 2.9, Lymphocytes # (Auto) 0.7 L, Monocytes # (Auto) 0.5, Eosinophils # (Auto) 0.1, Basophils # (Auto) 0.0, Calcium Level 9.0 Microbiology Microbiology 05/02/19 Blood Culture - Preliminary, Resulted No growth after 24 hours . All specim... 05/02/19 Blood Culture - Preliminary, Resulted No growth after 24 hours . All specim... BARTOLO MANCERA MD May 04, 2019 11:14
[2019-05-04] MEDS: methylPREDNISolone INJ 40 MG/1 ML VIAL (J2920) IV SCH ×2 (12:19→23:33)
[2019-05-04] MEDS: WARFARIN SOD 3 MG TAB PO SCH (17:33)
[2019-05-04] MEDS: ROSUVASTATIN 10 MG TAB (CRESTOR) PO SCH (22:24)
[2019-05-04] MEDS ORDERED: guaiFENesin ER 600 MG TAB PO ONE (23:45)
[2019-05-05] VITALS: BP 150/62
[2019-05-05 04:45] VITALS: BP 116/56
[2019-05-05 05:57] LABS: HEMATOCRIT 31.9 % (42.0-52.0); HEMOGLOBIN 10.3 g/dl (13.5-17.5); LYMPH # 0.4 10^3/uL (1.5-4.5); LYMPH % 7.6 % (24.0-44.0); MEAN CORPUSCULAR HEMOGLOBIN 30.8 pg (27.0-33.0); MEAN CORPUSCULAR HGB CONC 32.3 g/dl (32.0-36.5); MEAN CORPUSCULAR VOLUME 95.5 fl (80.0-96.0); MONO # 0.3 10^3/uL (0.0-0.8); MONO % 6.3 % (0.0-5.0); NEUTROPHILS # 4.6 10^3/uL (1.8-7.7); NEUTROPHILS % 85.4 % (36.0-66.0); RED BLOOD COUNT 3.34 10^6/uL (4.30-6.10); WHITE BLOOD COUNT 5.4 10^3/uL (4.0-10.0)
[2019-05-05 06:04] LABS: PLATELET COUNT, AUTOMATED 67 10^3/uL (150-450)
[2019-05-05 06:12] LABS: INR 3.49; PROTHROMBIN TIME 35.1 SECONDS (11.8-14.0)
[2019-05-05 06:27] LABS: BLOOD UREA NITROGEN 30 MG/DL (7-18); CALCIUM LEVEL 8.8 MG/DL (8.8-10.2); CARBON DIOXIDE LEVEL 30 MEQ/L (21-32); CHLORIDE LEVEL 102 MEQ/L (98-107); CREATININE FOR GFR 1.08 MG/DL (0.70-1.30); GLOMERULAR FILTRATION RATE > 60.0 (>35); GLUCOSE, FASTING 149 MG/DL (70-100); POTASSIUM SERUM 3.6 MEQ/L (3.5-5.1); SODIUM LEVEL 139 MEQ/L (136-145)
[2019-05-05 08:00] VITALS: BP 121/57
[2019-05-05] MEDS: ADVAIR HFA 115/21MCG INHALER INH SCH ×2 (08:26→20:45)
[2019-05-05] MEDS: guaiFENesin ER 600 MG TAB PO SCH ×2 (09:14→21:21)
[2019-05-05] MEDS: PANTOPRAZOLE 40MG TAB (PROTONIX) PO SCH (09:14)
[2019-05-05] MEDS: GABAPENTIN 300 MG CAP PO SCH ×2 (09:14→21:20)
[2019-05-05] MEDS: METOPROLOL SUCC (TopROL XL) 50MG **XL** TAB PO SCH (09:14)
[2019-05-05] MEDS: SPIRONOLACTONE 25 MG TAB PO SCH ×2 (09:15→16:35)
[2019-05-05] MEDS: FUROSEMIDE 100 MG/10 ML VIAL (J1940) IV SCH ×2 (09:15→16:35)
[2019-05-05] MEDS: methylPREDNISolone INJ 40 MG/1 ML VIAL (J2920) IV SCH (11:51)
[2019-05-05 12:00] VITALS: BP 116/59
--- NOTE | 2019-05-05 12:55 | IPNPDOC ---
Subjective Date Seen The patient was seen on 05/05/19. Subjective Chief Complaint/HPI Patient seen and examined at the bedside. He states that he did have a coughing spell and some shortness of breath overnight, but this improved with a nebulizer therapy and acappella. This morning, he states that he is feeling better. He was seen working with physical therapy, who continues to note progressive with each successive session. Objective Physical Examination General Exam: Positive: Alert, Cooperative, No Acute Distress ENT Exam: Positive: Atraumatic, Mucous membr. moist/pink Chest Exam: Positive: Wheezing, Diminished Heart Exam: Positive: Rate Normal, Normal S1, Normal S2; Negative: Regular Rhythm Abdomen Exam: Positive: Soft; Negative: Tenderness Extremity Exam: Positive: Edema, Other (chronic venous stasis changes) Psych Exam: Positive: Oriented x 3 Assessment /Plan Plan/VTE VTE Prophylaxis Ordered?: Yes Plan Decompensated Diastolic CHF Physical exam, and CXR on admission consistent with CHF Cont IV lasix q 8 hours, patient maintaining net negative balance Continue spironolactone Monitor I/Os 2 gram sodium diet , fluid restriction 1.5 liters. 2D ECHO with preserved left ventricular ejection fraction noted We will cont to monitor the patient's respiratory/volume status COPD exacerbation 2/2 Above Continue volume optimization with IV diuretic therapy Continue advair, frequents nebs. IV Solu-Medrol, we will cont to down taper over the next 24 hrs We will down titrate supplemental oxygen as tolerated--patient down to 1L via NC Atrial fibrillation Continue metoprolol with hold parameters, coumadin INR supratherapeutic today, will skip 05/05 dose Hypertension Continue metoprolol, diuretics. ITP with chronic thrombocytopenia slightly lower than baseline, no indication for transfusion at this time will continue to monitor CAD s/p CABG continue metoprolol, statin, no ASA due to ITP Hyperlipidemia continue statin GERD continue PPI DVT prophylaxis On Coumadin Disposition-pending clinical improvement, and functional optimization with physical therapy. VS, I&O, 24H, Fishbone Vital Signs/I&O Vital Signs Date Time Temp Pulse Resp B/P (MAP) Pulse Ox O2 Delivery O2 Flow Rate FiO2 05/05/19 11:50 93 05/05/19 09:14 77 121/57 05/05/19 08:00 1.0 05/05/19 08:00 97.4 18 05/03/19 00:15 Nasal Cannula I&O- Last 24 Hours up to 6 AM 05/05/19 06:00 Intake Total 1260 ml Output Total 1900 ml Balance -640 ml Laboratory Data 24H LABS Laboratory Tests 2 05/05/19 05:31: Immature Granulocyte % (Auto) 0.7, White Blood Count 5.4, Red Blood Count 3.34L, Hemoglobin 10.3L, Hematocrit 31.9L, Mean Corpuscular Volume 95.5, Mean Corpuscular Hemoglobin 30.8, Mean Corpuscular Hemoglobin Concent 32.3, Red Cell Distribution Width 17.2H, Platelet Count 67L, Neutrophils (%) (Auto) 85.4H, Lymphocytes (%) (Auto) 7.6L, Monocytes (%) (Auto) 6.3H, Eosinophils (%) (Auto) 0.0, Basophils (%) (Auto) 0.0, Neutrophils # (Auto) 4.6, Lymphocytes # (Auto) 0.4L, Monocytes # (Auto) 0.3, Eosinophils # (Auto) 0.0, Basophils # (Auto) 0.0, Nucleated Red Blood Cells % (auto) 0.0, Immature Platelet Fraction 9.0, Prothrombin Time 35.1H, Prothromb Time International Ratio 3.49, Anion Gap 7L, Glomerular Filtration Rate > 60.0, Blood Urea Nitrogen 30H, Creatinine 1.08, Sodium Level 139, Potassium Level 3.6, Chloride Level 102, Carbon Dioxide Level 30, Calcium Level 8.8, Magnesium Level 2.0 05/05/19 06:03: Bedside Glucose (Misc Panel) 162H CBC/BMP Laboratory Tests 05/05/19 05:31 Red Blood Count 3.34 L, Mean Corpuscular Volume 95.5, Mean Corpuscular Hemoglobin 30.8, Mean Corpuscular Hemoglobin Concent 32.3, Red Cell Distribution Width 17.2 H, Neutrophils (%) (Auto) 85.4 H, Lymphocytes (%) (Auto) 7.6 L, Monocytes (%) (Auto) 6.3 H, Eosinophils (%) (Auto) 0.0, Basophils (%) (Auto) 0.0, Neutrophils # (Auto) 4.6, Lymphocytes # (Auto) 0.4 L, Monocytes # (Auto) 0.3, Eosinophils # (Auto) 0.0, Basophils # (Auto) 0.0, Calcium Level 8.8 Microbiology Microbiology 05/02/19 Blood Culture - Preliminary, Resulted No Growth after 48 hours. All Specime... 05/02/19 Blood Culture - Preliminary, Resulted No Growth after 48 hours. All Specime... BARTOLO MANCERA MD May 05, 2019 12:54
[2019-05-05 16:32] VITALS: BP 127/60
[2019-05-05] MEDS ORDERED: WARFARIN SOD 3 MG TAB PO SCH (17:00)
[2019-05-05 20:00] VITALS: BP 133/66
[2019-05-05] MEDS: ROSUVASTATIN 10 MG TAB (CRESTOR) PO SCH (21:21)
[2019-05-05] MEDS: ALBUTEROL SULFATE 2.5 MG/0.5 ML INH NEB SOLN NEB SCH (23:15)
[2019-05-06] VITALS (7 sets, daily range): BP systolic 12–143; BP diastolic 61–94
[2019-05-06] MEDS: FUROSEMIDE 100 MG/10 ML VIAL (J1940) IV SCH ×3 (00:05→16:00)
[2019-05-06] MEDS: methylPREDNISolone INJ 40 MG/1 ML VIAL (J2920) IV SCH (00:06)
[2019-05-06 05:58] LABS: BASO % 0.1 % (0.0-1.0); HEMATOCRIT 36.5 % (42.0-52.0); HEMOGLOBIN 11.8 g/dl (13.5-17.5); LYMPH # 0.4 10^3/uL (1.5-4.5); LYMPH % 5.7 % (24.0-44.0); MEAN CORPUSCULAR HEMOGLOBIN 31.6 pg (27.0-33.0); MEAN CORPUSCULAR HGB CONC 32.3 g/dl (32.0-36.5); MEAN CORPUSCULAR VOLUME 97.6 fl (80.0-96.0); MONO # 0.5 10^3/uL (0.0-0.8); MONO % 6.5 % (0.0-5.0); NEUTROPHILS # 6.1 10^3/uL (1.8-7.7); NEUTROPHILS % 86.6 % (36.0-66.0); RED BLOOD COUNT 3.74 10^6/uL (4.30-6.10)
[2019-05-06 06:05] LABS: PLATELET COUNT, AUTOMATED 74 10^3/uL (150-450)
[2019-05-06 06:09] LABS: INR 2.88; PROTHROMBIN TIME 30.1 SECONDS (11.8-14.0)
[2019-05-06 06:28] LABS: BLOOD UREA NITROGEN 34 MG/DL (7-18); CARBON DIOXIDE LEVEL 31 MEQ/L (21-32); CHLORIDE LEVEL 100 MEQ/L (98-107); CREATININE FOR GFR 1.18 MG/DL (0.70-1.30); GLOMERULAR FILTRATION RATE > 60.0 (>35); GLUCOSE, FASTING 151 MG/DL (70-100); POTASSIUM SERUM 3.4 MEQ/L (3.5-5.1); SODIUM LEVEL 141 MEQ/L (136-145)
[2019-05-06] MEDS ORDERED: POTASSIUM CHLORIDE 10 MEQ SR TABLET PO ONE (07:30)
[2019-05-06] MEDS: ADVAIR HFA 115/21MCG INHALER INH SCH ×2 (07:38→19:52)
[2019-05-06] MEDS: PANTOPRAZOLE 40MG TAB (PROTONIX) PO SCH (09:20)
[2019-05-06] MEDS: METOPROLOL SUCC (TopROL XL) 50MG **XL** TAB PO SCH (09:22)
[2019-05-06] MEDS: predniSONE 20 MG TAB PO SCH (09:23)
[2019-05-06] MEDS: SPIRONOLACTONE 25 MG TAB PO SCH ×2 (09:23→16:00)
[2019-05-06] MEDS: GABAPENTIN 300 MG CAP PO SCH ×2 (09:23→20:26)
[2019-05-06] MEDS: guaiFENesin ER 600 MG TAB PO SCH ×2 (09:23→20:26)
--- NOTE | 2019-05-06 14:31 | IPNPDOC ---
Text Note Date of Service The patient was seen on 05/06/19. NOTE Subjective: Patient was seen and examined at the bedside. Patient reports that he's better today. Shortness of breath or palpitations. Denies nausea, vomiting, abdominal pain, constipation, diarrhea, or urinary discomfort. Objective: Vitals (See below) General: Lying in bed, no acute distress, comfortable, AAOx3 HEENT: NC, AT CVS: +S1S2 Lungs: Fair air entry b/l, -w/r/r Abdomen: Soft, ND, NT Extremities: Trace edema, - Calf tenderness Assessment and plan: Decompensated Diastolic CHF (Preserved EF) - Clinically appears to have improved - Only trace edema noted, no crackles - Remains negative fluid balanced - c/w I/Os, daily weight, fluid restrictions - c/w IV Lasix net negative protocol; will transition to oral diuretics within 24 hours COPD exacerbation 2/2 Above - Breathing has improved - Has been tapered off of supplemental oxygen - Will start Prednisone; Will DC solumedrol - c/w inhaled therapy as ordered Atrial fibrillation - Continue metoprolol with hold parameters - INR therapeutic - c/w full anticoagulation with Coumadin Hypertension - BP well controlled - Continue metoprolol, diuretics. ITP with chronic thrombocytopenia - no evidence of bleeding - no indication for transfusion at this time - platelet counts remain stable CAD s/p CABG - continue metoprolol, statin, no ASA due to ITP Hyperlipidemia - continue statin GI prophylaxis - c/w Protonix DVT prophylaxis - c/w full anticoagulation with Coumadin Disposition: - Anticipate discharge within 24 hours Nadia SIM, I+O VSNadia, I+O Laboratory Tests 05/06/19 05:26 Red Blood Count 3.74 L, Mean Corpuscular Volume 97.6 H, Mean Corpuscular Hemoglobin 31.6, Mean Corpuscular Hemoglobin Concent 32.3, Red Cell Distribution Width 17.0 H, Neutrophils (%) (Auto) 86.6 H, Lymphocytes (%) (Auto) 5.7 L, Monocytes (%) (Auto) 6.5 H, Eosinophils (%) (Auto) 0.0, Basophils (%) (Auto) 0.1, Neutrophils # (Auto) 6.1, Lymphocytes # (Auto) 0.4 L, Monocytes # (Auto) 0.5, Eosinophils # (Auto) 0.0, Basophils # (Auto) 0.0, Calcium Level 9.0 Vital Signs Date Time Temp Pulse Resp B/P (MAP) Pulse Ox O2 Delivery O2 Flow Rate FiO2 05/06/19 12:00 96.5 74 18 136/61 (86) 21 05/05/19 08:00 1.0 05/03/19 00:15 Nasal Cannula I&O- Last 24 Hours up to 6 AM 05/06/19 06:00 Intake Total 1320 ml Output Total 3850 ml Balance -2530 ml SAMUEL ALTMAN MD May 06, 2019 14:31
[2019-05-06] MEDS ORDERED: WARFARIN SOD 4 MG TAB PO SCH (17:00)
[2019-05-06] MEDS: ROSUVASTATIN 10 MG TAB (CRESTOR) PO SCH (20:26)
[2019-05-06] MEDS: ALBUTEROL SULFATE 2.5 MG/0.5 ML INH NEB SOLN NEB SCH (22:29)
[2019-05-06] MEDS: ACETAMINOPHEN TAB 650MG DOSE (2X325MG) PO PRN (22:49)
[2019-05-07] MEDS: FUROSEMIDE 100 MG/10 ML VIAL (J1940) IV SCH ×3 (00:22→16:42)
[2019-05-07 04:00] VITALS: BP 128/58
[2019-05-07 05:46] LABS: HEMATOCRIT 34.7 % (42.0-52.0); HEMOGLOBIN 11.4 g/dl (13.5-17.5); LYMPH # 0.8 10^3/uL (1.5-4.5); LYMPH % 9.1 % (24.0-44.0); MEAN CORPUSCULAR HGB CONC 32.9 g/dl (32.0-36.5); MEAN CORPUSCULAR VOLUME 94.3 fl (80.0-96.0); MONO # 0.8 10^3/uL (0.0-0.8); NEUTROPHILS # 6.5 10^3/uL (1.8-7.7); NEUTROPHILS % 78.6 % (36.0-66.0); RED BLOOD COUNT 3.68 10^6/uL (4.30-6.10); WHITE BLOOD COUNT 8.3 10^3/uL (4.0-10.0)
[2019-05-07 05:49] LABS: PLATELET COUNT, AUTOMATED 84 10^3/uL (150-450)
[2019-05-07 05:54] LABS: INR 3.33; PROTHROMBIN TIME 33.8 SECONDS (11.8-14.0)
[2019-05-07 06:07] LABS: BLOOD UREA NITROGEN 37 MG/DL (7-18); CALCIUM LEVEL 8.6 MG/DL (8.8-10.2); CARBON DIOXIDE LEVEL 33 MEQ/L (21-32); CHLORIDE LEVEL 101 MEQ/L (98-107); CREATININE FOR GFR 1.08 MG/DL (0.70-1.30); GLOMERULAR FILTRATION RATE > 60.0 (>35); GLUCOSE, FASTING 120 MG/DL (70-100); MAGNESIUM LEVEL 1.9 MG/DL (1.8-2.4); SODIUM LEVEL 142 MEQ/L (136-145)
[2019-05-07] MEDS ORDERED: POTASSIUM CHLORIDE 10 MEQ SR TABLET PO ONE ×2 (07:15→09:00)
[2019-05-07 08:00] VITALS: BP 107/71
[2019-05-07] MEDS: ALBUTEROL SULFATE 2.5 MG/0.5 ML INH NEB SOLN NEB SCH ×2 (08:00→15:32)
[2019-05-07] MEDS: ADVAIR HFA 115/21MCG INHALER INH SCH ×2 (08:05→20:50)
[2019-05-07] MEDS: ACETAMINOPHEN TAB 650MG DOSE (2X325MG) PO PRN ×2 (08:44→15:04)
--- NOTE | 2019-05-07 09:34 | REP ---
Clinical: Shortness of breath. Technique: PA and lateral. Comparison: 05/02/2019. Findings: Mediastinum and cardiac silhouette are stable with continued evidence for sternotomy and CABG. Lung dexter demonstrate chronic interstitial changes. Subtle basilar atelectasis cannot be excluded. No effusion. No pneumothorax. Skeletal structures intact. Impression: Chronic changes. Cannot exclude subtle basilar atelectasis. Electronically Signed by Vitor Martinez MD 05/07/2019 09:25 A
[2019-05-07] MEDS: predniSONE 20 MG TAB PO SCH (10:08)
[2019-05-07] MEDS: GABAPENTIN 300 MG CAP PO SCH ×2 (10:08→21:00)
[2019-05-07] MEDS: SPIRONOLACTONE 25 MG TAB PO SCH ×2 (10:08→16:42)
[2019-05-07] MEDS: PANTOPRAZOLE 40MG TAB (PROTONIX) PO SCH (10:09)
[2019-05-07] MEDS: guaiFENesin ER 600 MG TAB PO SCH ×2 (10:09→21:00)
[2019-05-07] MEDS: METOPROLOL SUCC (TopROL XL) 50MG **XL** TAB PO SCH (10:16)
--- NOTE | 2019-05-07 11:35 | IPNPDOC ---
Text Note Date of Service The patient was seen on 05/07/19. NOTE Subjective: Patient was seen and examined at the bedside. Patient reports that with exertion. She stilts rinsing some shortness of breath. He denies chest pain or p alpitations. Has been coughing and bringing up a low colored sputum. He denies any nausea, vomiting, abdominal pain, constipation, diarrhea, or urinary discomfort Objective: Vitals (See below) General: Lying in bed, no acute distress, comfortable, AAOx3 HEENT: NC, AT CVS: +S1S2 Lungs: Fair air entry b/l, no appreciable rhonchi, rales or wheezing Abdomen: Soft, nondistended and nontender Extremities: Trace edema appreciated, - Calf tenderness Assessment and plan: Decompensated Diastolic CHF (Preserved EF) - Clinically appears to have improved - Patient continues to have trace edema, no crackles are appreciated - Remains negative fluid balanced of about -4.5 L - CXR 05/07: Chronic changes. Cannot exclude subtle basilar atelectasis. - c/w I/Os, daily weight, fluid restrictions - c/w IV Lasix net negative protocol - Will start incentive spirometry and Acapella COPD exacerbation 2/2 Above - Breathing has improved - Has been tapered off of supplemental oxygen - c/w Prednisone; s/p solumedrol - c/w inhaled therapy as ordered Atrial fibrillation - Continue metoprolol with hold parameters - INR supra-therapeutic - c/w full anticoagulation with Coumadin - will hold today Hypertension - BP well controlled - Continue metoprolol, diuretics. ITP with chronic thrombocytopenia - no evidence of bleeding - no indication for transfusion at this time - platelet counts remain stable CAD s/p CABG - continue metoprolol, statin, no ASA due to ITP Hyperlipidemia - continue statin and aspirin GI prophylaxis - c/w Protonix DVT prophylaxis - INR supra-therapeutic - c/w full anticoagulation with Coumadin - will hold today Disposition: - Anticipate discharge within 24 hours Nadia SIM I+O Nadia SIM I+O Laboratory Tests 05/07/19 05:32 Red Blood Count 3.68 L, Mean Corpuscular Volume 94.3, Mean Corpuscular Hemoglobin 31.0, Mean Corpuscular Hemoglobin Concent 32.9, Red Cell Distribution Width 17.2 H, Neutrophils (%) (Auto) 78.6 H, Lymphocytes (%) (Auto) 9.1 L, Monocytes (%) (Auto) 10.0 H, Eosinophils (%) (Auto) 0.0, Basophils (%) (Auto) 0.0, Neutrophils # (Auto) 6.5, Lymphocytes # (Auto) 0.8 L, Monocytes # (Auto) 0.8, Eosinophils # (Auto) 0.0, Basophils # (Auto) 0.0, Calcium Level 8.6 L Vital Signs Date Time Temp Pulse Resp B/P (MAP) Pulse Ox O2 Delivery O2 Flow Rate FiO2 05/07/19 10:16 65 107/71 05/07/19 08:00 98.9 18 90 05/05/19 08:00 1.0 05/03/19 00:15 Nasal Cannula I&O- Last 24 Hours up to 6 AM 05/07/19 06:00 Intake Total 1150 ml Output Total 1625 ml Balance -475 ml SAMUEL ALTMAN MD May 07, 2019 11:35
[2019-05-07 12:00] VITALS: BP 117/60
[2019-05-07] MEDS ORDERED: SLF 3 ML SYR IV PRN (15:45)
[2019-05-07 16:00] VITALS: BP 136/68
[2019-05-07 20:00] VITALS: BP 119/58
[2019-05-07] MEDS: ROSUVASTATIN 10 MG TAB (CRESTOR) PO SCH (21:00)
[2019-05-07] MEDS: SLF 3 ML SYR IV SCH (22:00)
[2019-05-07 23:59] VITALS: BP 108/56
[2019-05-08] MEDS: ALBUTEROL SULFATE 2.5 MG/0.5 ML INH NEB SOLN NEB SCH ×2 (00:17→08:00)
[2019-05-08] MEDS: FUROSEMIDE 100 MG/10 ML VIAL (J1940) IV SCH ×2 (00:23→08:38)
[2019-05-08 04:00] VITALS: BP 112/56
[2019-05-08] MEDS: SLF 3 ML SYR IV SCH (05:42)
[2019-05-08 06:12] LABS: BASO % 0.3 % (0.0-1.0); HEMATOCRIT 37.2 % (42.0-52.0); LYMPH % 10.8 % (24.0-44.0); MEAN CORPUSCULAR HEMOGLOBIN 31.3 pg (27.0-33.0); MEAN CORPUSCULAR HGB CONC 32.3 g/dl (32.0-36.5); MEAN CORPUSCULAR VOLUME 97.1 fl (80.0-96.0); MONO % 10.4 % (0.0-5.0); NEUTROPHILS # 7.4 10^3/uL (1.8-7.7); NEUTROPHILS % 76.7 % (36.0-66.0); PLATELET COUNT, AUTOMATED 80 10^3/uL (150-450); RED BLOOD COUNT 3.83 10^6/uL (4.30-6.10); WHITE BLOOD COUNT 9.6 10^3/uL (4.0-10.0)
[2019-05-08 06:20] LABS: INR 3.04; PROTHROMBIN TIME 31.4 SECONDS (11.8-14.0)
[2019-05-08 06:23] LABS: BLOOD UREA NITROGEN 31 MG/DL (7-18); CALCIUM LEVEL 9.3 MG/DL (8.8-10.2); CARBON DIOXIDE LEVEL 32 MEQ/L (21-32); CHLORIDE LEVEL 102 MEQ/L (98-107); CREATININE FOR GFR 1.14 MG/DL (0.70-1.30); GLOMERULAR FILTRATION RATE > 60.0 (>35); GLUCOSE, FASTING 113 MG/DL (70-100); POTASSIUM SERUM 3.3 MEQ/L (3.5-5.1); SODIUM LEVEL 141 MEQ/L (136-145)
[2019-05-08] MEDS ORDERED: POTASSIUM CHLORIDE 10 MEQ SR TABLET PO ONE (07:30)
[2019-05-08] MEDS: ADVAIR HFA 115/21MCG INHALER INH SCH (07:54)
[2019-05-08 08:00] VITALS: BP 129/69
[2019-05-08] MEDS ORDERED: PRED10TA2 PO (08:13)
[2019-05-08] MEDS ORDERED: SPIR-10 PO (08:13)
[2019-05-08] MEDS ORDERED: TORS20TA2 PO (08:13)
[2019-05-08] MEDS ORDERED: MUCI600T31 PO (08:13)
[2019-05-08] MEDS: PANTOPRAZOLE 40MG TAB (PROTONIX) PO SCH (08:39)
[2019-05-08 08:40] VITALS: BP 129/69
[2019-05-08] MEDS: GABAPENTIN 300 MG CAP PO SCH (08:40)
[2019-05-08] MEDS: METOPROLOL SUCC (TopROL XL) 50MG **XL** TAB PO SCH (08:40)
[2019-05-08] MEDS: predniSONE 20 MG TAB PO SCH (08:40)
[2019-05-08] MEDS: guaiFENesin ER 600 MG TAB PO SCH (08:40)
[2019-05-08] MEDS: SPIRONOLACTONE 25 MG TAB PO SCH (08:40)
--- NOTE | 2019-05-08 10:50 | DS.PDOC ---
Discharge Summary General Date of Admission May 02, 2019 at 21:25 Date of Discharge 05/08/2019 Discharge Summary PROCEDURES PERFORMED DURING STAY: [None]. 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 On admission to the hospital. Patient was found to have evidence of fluid overload and was admitted to hospitalist service for further evaluation and treatment. HOSPITAL COURSE: Decompensated Diastolic CHF (Preserved EF) - Clinically appears to have improved - Patient continues to have trace edema, no crackles are appreciated - Remains negative fluid balanced of about -4.5 L - CXR 05/07: Chronic changes. Cannot exclude subtle basilar atelectasis. - c/w I/Os, daily weight, fluid restrictions - c/w IV Lasix net negative protocol; will adjust diuretics on discharge to Torsemide 40 AM and 20 PM - c/w incentive spirometry and Acapella - Has cleared physical therapy COPD exacerbation 2/2 Above - Breathing has improved - Has been tapered off of supplemental oxygen - c/w Prednisone; s/p solumedrol - c/w inhaled therapy as ordered Atrial fibrillation - Continue metoprolol with hold parameters - INR has improved / approached therapeutic range - c/w full anticoagulation with Coumadin - will resume on discharge Hypertension - BP well controlled - Continue metoprolol, diuretics. ITP with chronic thrombocytopenia - no evidence of bleeding - no indication for transfusion at this time - platelet counts remain stable CAD s/p CABG - continue metoprolol, statin, no ASA due to ITP Hyperlipidemia - continue statin and aspirin GI prophylaxis - c/w Protonix DVT prophylaxis - INR has improved / approached therapeutic range - c/w full anticoagulation with Coumadin; will resume on discharge DISCHARGE MEDICATIONS: Please see below. ALLERGIES: Please see below. PHYSICAL EXAMINATION ON DISCHARGE: Vitals (See below) General: Lying in bed, no acute distress, comfortable, AAOx3 HEENT: NC, AT CVS: +S1S2 Lungs: Fair air entry b/l, palpitations, free of any rhonchi, rales or Abdomen: Remains soft without distention Extremities: Very trace edema appreciated bilaterally, - Calf tenderness LABORATORY DATA: Please see below. ACTIVITY: [As tolerated]. DISCHARGE PLAN: Follow-up with Dr. Anna Garcia in 7 days Remain compliant with treatment plan and medications Return to the ER if you experience any problems DISPOSITION: Home DISCHARGE CONDITION: [Stable]. TIME SPENT ON DISCHARGE: 35 minutes Vital Signs/I&Os Vital Signs Date Time Temp Pulse Resp B/P (MAP) Pulse Ox O2 Delivery O2 Flow Rate FiO2 05/08/19 08:40 93 129/69 05/08/19 08:00 97.7 19 92 05/05/19 08:00 1.0 05/03/19 00:15 Nasal Cannula I&O- Last 24 Hours up to 6 AM 05/08/19 05:59 Intake Total 890 ml Output Total 2650 ml Balance -1760 ml Laboratory Data Labs 24H Laboratory Tests 2 05/08/19 05:36: Immature Granulocyte % (Auto) 1.8, White Blood Count 9.6, Red Blood Count 3.83L, Hemoglobin 12.0L, Hematocrit 37.2L, Mean Corpuscular Volume 97.1H, Mean Corpuscular Hemoglobin 31.3, Mean Corpuscular Hemoglobin Concent 32.3, Red Cell Distribution Width 17.3H, Platelet Count 80L, Neutrophils (%) (Auto) 76.7H, Lymphocytes (%) (Auto) 10.8L, Monocytes (%) (Auto) 10.4H, Eosinophils (%) (Auto) 0.0, Basophils (%) (Auto) 0.3, Neutrophils # (Auto) 7.4, Lymphocytes # (Auto) 1.0L, Monocytes # (Auto) 1.0H, Eosinophils # (Auto) 0.0, Basophils # (Auto) 0.0, Nucleated Red Blood Cells % (auto) 0.2H, Immature Platelet Fraction 11.3H, Prothrombin Time 31.4H, Prothromb Time International Ratio 3.04, Anion Gap 7L, Glomerular Filtration Rate > 60.0, Blood Urea Nitrogen 31H, Creatinine 1.14, Sodium Level 141, Potassium Level 3.3L, Chloride Level 102, Carbon Dioxide Level 32, Calcium Level 9.3, Magnesium Level 2.0 CBC/BMP Laboratory Tests 05/08/19 05:36 Red Blood Count 3.83 L, Mean Corpuscular Volume 97.1 H, Mean Corpuscular Hemoglobin 31.3, Mean Corpuscular Hemoglobin Concent 32.3, Red Cell Distribution Width 17.3 H, Neutrophils (%) (Auto) 76.7 H, Lymphocytes (%) (Auto) 10.8 L, Monocytes (%) (Auto) 10.4 H, Eosinophils (%) (Auto) 0.0, Basophils (%) (Auto) 0.3, Neutrophils # (Auto) 7.4, Lymphocytes # (Auto) 1.0 L, Monocytes # (Auto) 1.0 H, Eosinophils # (Auto) 0.0, Basophils # (Auto) 0.0, Calcium Level 9.3 Microbiology Microbiology 05/02/19 Blood Culture - Final, Complete NO GROWTH AFTER 5 DAYS 05/02/19 Blood Culture - Final, Complete NO GROWTH AFTER 5 DAYS Discharge Medications Scheduled Cyclosporine (Restasis) 0.05 % Emu, 1 DROP OU BID, (Reported) Fluticasone Propion/Salmeterol (Advair Hfa 115-21 Mcg Inhaler) 1 Aer Aer, 2 PUFF INH BID, (Reported) Gabapentin (Gabapentin) 600 Mg Tab, 600 MG PO DAILY, (Reported) Gabapentin (Gabapentin) 600 Mg Tab, 1,200 MG PO QHS, (Reported) Guaifenesin (Mucinex) 600 Mg Tab.er.12h, 600 MG PO BID Metoprolol Succinate (Metoprolol Succinate) 50 Mg Tab, 50 MG PO DAILY, (Report ed) Prednisone (Prednisone) 10 Mg Tablet, 10 MG PO TAPER Take 4 tabs daily x 3 days, then 3 tabs daily x 3 days, then 2 tabs daily x 3 days, then 1 tab daily x 3 days and stop Rosuvastatin Calcium (Crestor) 20 Mg Tablet, 20 MG PO QHS, (Reported) Spironolactone (Spironolactone) 25 Mg Tab, 25 MG PO BID Torsemide (Torsemide) 20 Mg Tablet, 20 MG PO ASDIRECTED take 2 tabs in the morning and 1 tab in the evening Warfarin Sodium (Warfarin Sodium) 3 Mg Tab, 6 MG PO [id number], (Reported) TAKES ON SUNDAY, SUNDAY, SUNDAY, SUNDAY, SUNDAY, AND SUNDAY Warfarin Sodium (Warfarin Sodium) 3 Mg Tablet, 3 MG PO 1XWK, (Reported) TAKES ON SUNDAY Scheduled PRN Albuterol Sulf (Albuterol Sulfate) 2.5 Mg/3 Ml Vial.neb, 1 VIAL NEB Q4H PRN for wheezing, (Reported) Albuterol Sulfate (Proair Hfa) 108 Mcg/Act Aer, 2 PUFF INH QID PRN for SHORTNESS OF BREATH, (Reported) Esomeprazole Magnesium (Nexium) 40 Mg Cap, 40 MG PO DAILY PRN for ACID REFLUX, (Reported) Nitroglycerin (Nitrostat) 0.4 Mg Subl, 0.4 MG SL NITRO PRN for CHEST PAIN, (Reported) Allergies Coded Allergies: No Known Allergies (Verified , 07/15/17) SAMUEL ALTMAN MD May 08, 2019 10:50
--- NOTE | 2019-05-08 11:39 | NOCOX ---
DATE OF STUDY: 05/07/2019 The study was performed on room air. The total recorded valid sampling time was 7 hours and 4 minutes. The patient's highest oxygen (O2) saturation was 99%. The lowest O2 saturation was 81%. His heart rate varied from the high of 122 to a low of 56 with a mean of 81 bpm. The total time spent with an O2 saturation less than 88% was 1 hour and 32 minutes. His desaturation event index was approximately 28. Graphically, the patient did have episodes of periodic desaturation, which graphically appeared consistent with possible Ihsan-Renee respirations. He also had some heart rate variability noted, as well. IMPRESSION: Abnormal nocturnal oximetry study with significant desaturation overnight. The patient would qualify for nocturnal oxygen supplementation. Given the graphical data, the patient's respiration pattern appeared consistent with possible Ihsan-Renee respirations. Would correlate clinically if the patient has evidence of congestive heart failure (CHF). Cannot rule out obstructive sleep apnea; and if there is still suspicion of sleep disordered breathing, would refer for further sleep testing. [facility]OSPITALFredi
[2019-05-08 12:00] VITALS: BP 132/74
== END 2019-05-08 14:13 | disposition home or self-care (01) | DRG 190 ==
LOC: M ED 16:33 → EDBD 16:33 → M ED INP 21:25 → M PCU 05-03 00:24
PROVIDERS: ADMIT Internal Medicine Nephrology; ATTEND Internal Medicine
DX: J44.1 Chronic obstructive pulmonary disease with (acute) exacerbation (principal); I50.33 Acute on chronic diastolic (congestive) heart failure; D69.3 Immune thrombocytopenic purpura; I11.0 Hypertensive heart disease with heart failure; D47.2 Monoclonal gammopathy; I25.10 Atherosclerotic heart disease of native coronary artery without angina pectoris; K21.9 Gastro-esophageal reflux disease without esophagitis; N40.0 Benign prostatic hyperplasia without lower urinary tract symptoms; I48.91 Unspecified atrial fibrillation; E78.5 Hyperlipidemia, unspecified; M19.90 Unspecified osteoarthritis, unspecified site; Z85.46 Personal history of malignant neoplasm of prostate; Z85.828 Personal history of other malignant neoplasm of skin; Z92.3 Personal history of irradiation; Z79.01 Long term (current) use of anticoagulants; Z79.899 Other long term (current) drug therapy; Z90.5 Acquired absence of kidney; Z95.5 Presence of coronary angioplasty implant and graft

== ENCOUNTER 2019-05-12 13:55 | Inpatient (IN) | payer MEDICARE ==
[~2019-05-12] VITALS: Ht 172.7 cm; Wt 102.7 kg
[~2019-05-12 13:55] MED LIST changes: +ALBU83IN NEB; -AZIT500T2 PO; +AZIT500T5 PO; +CRES20TA2 PO; +MUCI600T31 PO; +PRED10TA2 PO; -ROSU20TA4 PO; +ROSU20TA5 PO; +TORS20TA2 PO
[2019-05-12] MEDS ORDERED: ONDANSETRON 4MG/2ML VIAL (J2405) IV PRN (14:45)
[2019-05-12 15:11] LABS: BASO % 0.2 % (0.0-1.0); HEMATOCRIT 41.5 % (42.0-52.0); HEMOGLOBIN 13.5 g/dl (13.5-17.5); LYMPH # 0.9 10^3/uL (1.5-4.5); LYMPH % 4.8 % (24.0-44.0); MEAN CORPUSCULAR HEMOGLOBIN 30.9 pg (27.0-33.0); MEAN CORPUSCULAR HGB CONC 32.5 g/dl (32.0-36.5); MONO # 0.8 10^3/uL (0.0-0.8); NEUTROPHILS # 16.9 10^3/uL (1.8-7.7); PLATELET COUNT, AUTOMATED 116 10^3/uL (150-450); RED BLOOD COUNT 4.37 10^6/uL (4.30-6.10); VENOUS BASE EXCESS 5.5 (-2.0-2.0); VENOUS HCO3 29.3 MEQ/L (23.0-27.0); VENOUS O2 SATURATION 92.7 % (60.0-80.0); VENOUS PARTIAL PRESSURE CO2 39.8 mmHg (38.0-50.0); VENOUS PARTIAL PRESSURE O2 65.7 mmHg (30.0-50.0); VENOUS PH 7.485 UNITS (7.330-7.430); VENOUS STANDARD HCO3 29.3 MEQ/L; VENOUS TOTAL CO2 30.5 MEQ/L (24.0-28.0); WHITE BLOOD COUNT 18.7 10^3/uL (4.0-10.0)
[2019-05-12] MEDS: NS 1,000 ML IV SCH ×3 (15:21→22:45)
[2019-05-12] MEDS: MORPHINE 2 MG/ML 1ML VIAL (J2270) IV ONE ×2 (15:24→19:05)
--- NOTE | 2019-05-12 15:27 | REP ---
Portable chest x-ray: Single view. History: Altered mental status. Comparison study: May 07, 2019. Findings: The patient is status post prior median sternotomy. EKG monitoring electrodes are seen. Heart size is unchanged. Pulmonary vasculature is slightly cephalized. No acute infiltrate is seen. The pleural angles are sharp. Impression: Prior sternotomy. Mild cephalization. No acute infiltrate. Electronically Signed by Vlad Driver MD 05/12/2019 05:18 P
[2019-05-12 15:50] LABS: ACETAMINOPHEN LEVEL < 2.0 UG/ML (10.0-30.0); ALBUMIN 2.1 GM/DL (3.2-5.2); ALT/SGPT 18 U/L (12-78); BILIRUBIN,DIRECT 0.2 MG/DL (0.0-0.2); BILIRUBIN,TOTAL 0.6 MG/DL (0.2-1.0); BLOOD UREA NITROGEN 37 MG/DL (7-18); CALCIUM LEVEL 8.3 MG/DL (8.8-10.2); CARBON DIOXIDE LEVEL 28 MEQ/L (21-32); CHLORIDE LEVEL 100 MEQ/L (98-107); CK-MB VALUE MASS < 1.0 NG/ML (<3.6); CPK CREATINE PHOSPHOKINASE 29 U/L (39-308); GLOMERULAR FILTRATION RATE > 60.0 (>35); GLUCOSE, FASTING 139 MG/DL (70-100); MB/CK RELATIVE INDEX 3.45 (< OR =4); POTASSIUM SERUM 3.5 MEQ/L (3.5-5.1); SALICYLATE LEVEL < 1.7 MG/DL (5.0-30.0); SODIUM LEVEL 136 MEQ/L (136-145); TOTAL PROTEIN 7.3 GM/DL (6.4-8.2); TROPONIN I < 0.02 NG/ML (< 0.10)
--- NOTE | 2019-05-12 16:59 | ECGEPIP ---
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
[2019-05-12] MEDS ORDERED: MUCI600T31 PO (18:44)
[2019-05-12] MEDS ORDERED: PRED10TA2 PO (18:44)
[2019-05-12] MEDS ORDERED: ACET-683 PO (18:47)
[2019-05-12] MEDS ORDERED: PROAAER10 INH (18:47)
[2019-05-12] MEDS ORDERED: TOPR50TA PO (18:47)
[2019-05-12] MEDS ORDERED: SPIR-10 PO (18:47)
[2019-05-12] MEDS ORDERED: TORS20TA2 PO ×2 (18:47)
[2019-05-12] MEDS ORDERED: ACETAMINOPHEN TAB 650MG DOSE (2X325MG) PO PRN (20:00)
[2019-05-12] MEDS ORDERED: predniSONE 10 MG TAB PO ONE (20:00)
[2019-05-12] MEDS ORDERED: MOM 30ML SUSPENSION UDC PO PRN (20:00)
[2019-05-12] MEDS ORDERED: CYCLOBENZAPRINE 5MG TABLET PO ONE (20:00)
[2019-05-12] MEDS ORDERED: MAALOX 30 ML SUSP *UDC PO PRN (20:00)
[2019-05-12 20:47] LABS: PROTHROMBIN TIME 52.1 SECONDS (11.8-14.0)
[2019-05-12] MEDS: DOCUSATE SODIUM 100 MG CAP PO SCH ×2 (20:55→23:23)
[2019-05-12 21:14] VITALS: BP 133/73
[2019-05-12 21:14] LABS: INR 5.72
[2019-05-12] MEDS ORDERED: VANCOMYCIN HCL 500 MG in D5W MINI-BAG PLUS 100 ML IV ONE ×2 (22:00→23:00)
[2019-05-12] MEDS ORDERED: ALBUTEROL SULFATE 2.5 MG/0.5 ML INH NEB SOLN NEB PRN (22:15)
--- NOTE | 2019-05-12 23:01 | HPEPDOC ---
General Date of Admission 05/12/19 Date of Service: May 12, 2019 Primary Care Physician: Anna Garcia Attending Physician: JOSUE WILLINGHAM DO Chief Complaint The patient is a 83-year-old male admitted with a reason for visit of weakness, neck pain, arm pain Source: Patient, Family, Old records Exam Limitations: No limitations Timing/Duration: Day(s) (2-3), Constant, Getting worse Severity: Severe Associated Symptoms: Chest Pain, Headaches, Loss of appetite, Malaise, Weakness History of Present Illness 83 yo male recently discharged on 05/08/19 with CHF, COPD exacerbation and ITP with chronic thrombocytopenia presented to ED with increasing neck pain and arm pain. He states his breathing is great since leaving the hospital. He slept in recliner chair and over past 1-2 days has had increasing neck stiffness, MUSTAFA , back pain and arm pain over areas of IV infiltration on left arm. He states no fever, no sweats, no diaphoresis. As for the neck and arm pain - he states it is located over occiptial and trapezius muscles to bilateral shoulders - constant, relief with laying still in recliner, worse when trying to look up or bend forward. Temporary relief with tylenol. States pain depends on activity. States right scapular pain that radiates to back of neck and into chests at same time as headache. States MUSTAFA only happens with neck/shoulder and back pain. no vision changes. no nausea, no vomiting, no SOB. Son in law states patient is weaker with walking and walking around with head "bend down", stiff gait. Patient states over past 1-2 days not as strong as usual. As for IV infiltration area to left arm, patient and daughter notice increased swelling and red to 2 past IV sites over last 2-3 days and pain with moving arm. getting worse. constant, dull achy Home Medications Scheduled Cyclosporine (Restasis) 0.05 % Emu, 1 DROP OU BID, (Reported) Esomeprazole Magnesium (Nexium) 40 Mg Cap, 40 MG PO DAILY, (Reported) Fluticasone Propion/Salmeterol (Advair Hfa 115-21 Mcg Inhaler) 1 Aer Aer, 2 PUFF INH BID, (Reported) Gabapentin (Gabapentin) 600 Mg Tab, 600 MG PO DAILY, (Reported) Gabapentin (Gabapentin) 600 Mg Tab, 1,200 MG PO QHS, (Reported) Guaifenesin (Mucinex) 600 Mg Tab.er.12h, 600 MG PO BID, (Reported) STARTED 05/09/19 TO TAKE X 7 DAYS Metoprolol Succinate (Toprol Xl) 50 Mg Tab.er.24h, 50 MG PO DAILY, (Reported) Prednisone (Prednisone) 10 Mg Tablet, 10 MG PO TAPER, (Reported) STARTED ON 05/09/19 TO TAKE 4 TABS X 3 DAYS THEN 3 TABS X 3 DAYS THEN 2 TABS X 3 DAYS THEN 1 TAB X 3 DAYS THEN STOP Rosuvastatin Calcium (Crestor) 20 Mg Tablet, 20 MG PO QHS, (Reported) Spironolactone (Spironolactone) 25 Mg Tablet, 25 MG PO BID, (Reported) Torsemide (Torsemide) 20 Mg Tablet, 20 MG PO QHS, (Reported) Torsemide (Torsemide) 20 Mg Tablet, 40 MG PO DAILY, (Reported) Warfarin Sodium (Warfarin Sodium) 3 Mg Tab, 6 MG PO 6XWK, (Reported) TAKES ON SUNDAY, SUNDAY, SUNDAY, SUNDAY, SUNDAY, AND SUNDAY Warfarin Sodium (Warfarin Sodium) 3 Mg Tablet, 3 MG PO 1XWK, (Reported) TAKES ON SUNDAY Scheduled PRN Acetaminophen (Acetaminophen) 500 Mg Tablet, 1,000 MG PO Q6H PRN for PAIN, (Reported) Albuterol Sulf (Albuterol Sulfate) 2.5 Mg/3 Ml Vial.neb, 1 VIAL NEB Q4H PRN for wheezing, (Reported) Albuterol Sulfate (Proair Hfa) 8.5 Gm Hfa.aer.ad, 2 PUFF INH Q4H PRN for SHORTNESS OF BREATH, (Reported) Nitroglycerin (Nitrostat) 0.4 Mg Subl, 0.4 MG SL NITRO PRN for CHEST PAIN, (Reported) Allergies Coded Allergies: No Known Allergies (Verified , 07/15/17) Past Medical History Medical History ITP with chronic thrombocytopenia, IgG kappa monoclonal gammopathy, Diastolic CHF, CAD s/p CABG, GERD, Hypertension, BPH, Atrial fibrillation, COPD, Hyperlipidemia, OA. H/o prostate ca s/p RT, H/o skin cancer of face, h/o basal cell cancer of several sites, Surgical History Status post nephrectomy due to an injury in 1947, appendectomy in 2000, angioplasty and stent implantation in 2001, left coronary artery bypass surgery in 2007, Mohs surgery to the nose for skin cancer [id number]. Family History Significant Family History: Cancer (colon cancer in father, brother and one sister, breat cancer in another sister), Heart disease Social History * Smoker: former Smoker Alcohol: Denies Drugs: denies A-FIB/CHADSVASC A-FIB History Current/History of A-Fib/PAF?: Yes Current PO Anticoag Therapy: Yes Age/Risk Factor Scoring CHADSVASC: CHADSVASC Response (Comments) Value Age Risk Factor Age >/= 75 years old 2 Gender Risk Factor Male 0 Hx of CHF Yes 1 Hx of HTN Yes 1 Hx of Stroke/TIA/or VTE Yes 2 Hx of Diabetes No 0 Hx of Vascular Disease No 0 Total 6 Treatment Treatment ordered: Warfarin Review of Systems Other systems 10 systems reviewed and negative except as per HPI Physical Examination General Exam: Positive: Alert, Cooperative, Mild Distress Eye Exam: Positive: PERRLA, Conjunctiva & lids normal, EOMI ENT Exam: Positive: Atraumatic, Mucous membr. moist/pink, Pharynx Normal, Other ENT (tenderness along superior trapezius bilerally, occipital ridge bilaterally and SCM muscles bilaterally; ) Neck Exam: Positive: +2 carotid pulse wo bruit, Other (no adenopathy; limited ROM in all dexter due to muscle spasms) Chest Exam: Positive: Clear to auscultation, Normal air movement; Negative: Rales, Rhonchi, Wheezing, Diminished Heart Exam: Positive: Irregular Rhythm (at 86 bpm) Telemetry: Positive: Atrial fibrillation (rate controlled) Abdomen Exam: Positive: Normal bowel sounds, Soft (NT ND no mass) Extremity Exam: Positive: Normal pulses; Negative: Clubbing, Cyanosis, Edema Skin Exam: Positive: Nl turgor and temperature, Other skin issue (right forearm with 2 pustular indurated lesions at site of priors IV while in hospital- surrounded by 1cm erythema. first area along elbow fold, second area to left forearm, hot to touch) Neuro Exam: Positive: Normal Speech, Strength at 5/5 X4 ext, Normal Tone, Sensation Intact, Cranial Nerves 3-12 NL, Other (family reports unsteady gait) Psych Exam: Positive: Mental status NL, Mood NL, Oriented x 3 Other physical findings EKG afib with RBBB Vital Signs Vital Signs Date Time Temp Pulse Resp B/P (MAP) Pulse Ox O2 Delivery O2 Flow Rate FiO2 05/12/19 19:05 80 18 115/65 89 05/12/19 17:37 Room Air 05/12/19 13:56 97.5 Laboratory Data Labs 24H Laboratory Tests 2 05/12/19 15:02: Immature Granulocyte % (Auto) 1.0, White Blood Count 18.7H, Red Blood Count 4.37, Hemoglobin 13.5, Hematocrit 41.5L, Mean Corpuscular Volume 95.0, Mean Corpuscular Hemoglobin 30.9, Mean Corpuscular Hemoglobin Concent 32.5, Red Cell Distribution Width 17.2H, Platelet Count 116L, Neutrophils (%) (Auto) 90.0H, Lymphocytes (%) (Auto) 4.8L, Monocytes (%) (Auto) 4.0, Eosinophils (%) (Auto) 0.0, Basophils (%) (Auto) 0.2, Neutrophils # (Auto) 16.9H, Lymphocytes # (Auto) 0.9L, Monocytes # (Auto) 0.8, Eosinophils # (Auto) 0.0, Basophils # (Auto) 0.0, Nucleated Red Blood Cells % (auto) 0.1H, Blood Gas Bicarbonate Standard 29.3, Venous Blood pH 7.485H, Venous Blood Partial Pressure CO2 39.8, Venous Blood Partial Pressure O2 65.7H, Venous Blood Total Carbon Dioxide 30.5H, Venous Blood HCO3 29.3H, Venous Blood Oxygen Saturation 92.7H, Venous Blood Base Excess 5.5H, Anion Gap 8, Glomerular Filtration Rate > 60.0, Lactic Acid Level 1.5, Calcium Level 8.3L, Aspartate Amino Transf (AST/SGOT) 20, Alanine Aminotransferase (ALT/SGPT) 18, Alkaline Phosphatase 88, Total Bilirubin 0.6, Direct Bilirubin 0.2, Ammonia 48H, Total Creatine Kinase 29L, Creatine Kinase MB < 1.0, Creatine Kinase MB Relative Index 3.45, Troponin I < 0.02, Total Protein 7.3, Albumin 2.1L, Albumin/Globulin Ratio 0.40L, Thyroid Stimulating Hormone (TSH) 1.610, Salicylates Level < 1.7L, Acetaminophen Level < 2.0L 05/12/19 17:14: Urine Color YELLOW, Urine Appearance CLEAR, Urine pH 6.0, Urine Specific [place] 1.011, Urine Protein 1+H, Urine Glucose (UA) NEGATIVE, Urine Ketones NEGATIVE, Urine Blood 2+H, Urine Nitrite NEGATIVE, Urine Bilirubin NEGATIVE, Urine Urobilinogen 0.2, Urine Leukocyte Esterase TRACEH, Urine WBC (Auto) 9H, Urine RBC (Auto) 6H, Urine Hyaline Casts (Auto) 0, Urine Bacteria (Auto) NEGATIVE, Urine Squamous Epithelial Cells 0, Urine Sperm (Auto) CBC/BMP Laboratory Tests 05/12/19 15:02 Red Blood Count 4.37, Mean Corpuscular Volume 95.0, Mean Corpuscular Hemoglobin 30.9, Mean Corpuscular Hemoglobin Concent 32.5, Red Cell Distribution Width 17.2 H, Neutrophils (%) (Auto) 90.0 H, Lymphocytes (%) (Auto) 4.8 L, Monocytes (%) (Auto) 4.0, Eosinophils (%) (Auto) 0.0, Basophils (%) (Auto) 0.2, Neutrophils # (Auto) 16.9 H, Lymphocytes # (Auto) 0.9 L, Monocytes # (Auto) 0.8, Eosinophils # (Auto) 0.0, Basophils # (Auto) 0.0 Microbiology Microbiology 05/12/19 Blood Culture, Received Pending 05/12/19 Blood Culture, Received Pending 05/12/19 Urine Culture, Received Pending RAD Interpretation STUDY: CXR Rad Actions: Report Reviewed, Films Reviewed, Discussed with the pt, Other Rad Comments: (cephalization, no infiltrates) RAD Interpretation: Other Result Comments: (improved compared to prior CXR 05/2019) Assessment/Plan 1) left arm cellulitis at area of prior IV infiltrated sites during recent hospitalization IV Vanc,Cefepime, culture pustule, elevate arm, blood cultures pending 2) Torticollis - no meningeal signs muscle relaxor trial tonight and if helps, consider continuing therapy PT /OT consult 3) Afib - rate controlled continue same medications; on warfarin - adjust dose 4) supratherapeutic INR - hold coumadin today. repeat INR in AM and adjust daily 5) Recent hospitalization for COPD and CHF _ RESOLVED. continue same regimen Code status: FULL DVT prophylaxis: none needed as on warfarin with elevated INR Plan / VTE VTE Prophylaxis Ordered?: No JOSUE WILLINGHAM DO May 12, 2019 19:07
[2019-05-12] MEDS: ROSUVASTATIN 10 MG TAB (CRESTOR) PO SCH (23:23)
[2019-05-12] MEDS: TORSEMIDE 20 MG TAB PO SCH (23:24)
[2019-05-12] MEDS: GABAPENTIN 300 MG CAP PO SCH (23:25)
[2019-05-12] MEDS: guaiFENesin ER 600 MG TAB PO SCH (23:27)
[2019-05-13] MEDS ORDERED: VANCOMYCIN HCL 1,000 MG, VIAL MATE ADAPTER 1 EACH in D5W 250 ML IV ONE ×3
[2019-05-13] MEDS: ACETAMINOPHEN 500 MG TAB PO PRN ×2 (00:41→11:03)
[2019-05-13] MEDS: CEFEPIME HCL 2 GM in D5W MINI-BAG PLUS 50 ML IV SCH ×2 (00:41→11:03)
[2019-05-13 02:15] VITALS: BP 126/67
--- NOTE | 2019-05-13 05:12 | PHACANCOPD ---
PHARMACY VANCOMYCIN DOSING Pt Demographics Demographics Patient Age:83 , Weight:95.450 , Gender: male Adjusted Body Weight Date: 05/13/19, Adjusted Body Weight: [79.22] Kg Vancomycin Vancomycin indication: CELLULITIS LEFT ARM(POSSIBLE MRSA) Vancomycin Target Ranges: 15-20 mcg/ml Vancomycin Load Y/N: Yes Load Dose Date Time Vancomycin Load Dose: 1.5GM Date: 05/12 Time:0 Vancomycin Dose Date: 05/13/19. Current Vancomycin Dose: [1 GM Q24H] Intermittent Dosing?: No Labs Labs Laboratory Tests 05/12/19 15:02 Red Blood Count 4.37, Mean Corpuscular Volume 95.0, Mean Corpuscular Hemoglobin 30.9, Mean Corpuscular Hemoglobin Concent 32.5, Red Cell Distribution Width 17.2 H, Neutrophils (%) (Auto) 90.0 H, Lymphocytes (%) (Auto) 4.8 L, Monocytes (%) (Auto) 4.0, Eosinophils (%) (Auto) 0.0, Basophils (%) (Auto) 0.2, Neutrophils # (Auto) 16.9 H, Lymphocytes # (Auto) 0.9 L, Monocytes # (Auto) 0.8, Eosinophils # (Auto) 0.0, Basophils # (Auto) 0.0 Micro Microbiology 05/12/19 Blood Culture, Received Pending 05/12/19 Blood Culture, Received Pending 05/12/19 Urine Culture, Received Pending Creatinine Clearance Date:05/13/19. Creatinine Clearance: [52.3].CALCULATED Assessment and Plan Maintaining Current Dose?: Yes Reason for dose change: No Dose Change Pharmacist Note Pharmacist Note Date: 05/13/19. Pharmacist note:83 Y0M SCR=1.2,CRCL=52.3calculated,recent hospital discharge w/ left arm cellulitis.Tx w/ Cefepime 2 grams Q12H plus Pharmacy dosed Vancomycin.1.5 grams Vancomycin administered as loading dose 05/12@2330- 0100, then will begin regimen of 1 gram [id number] 05/13@1800. First trough is scheduled to be drawn 05/14@1700(prior to thr 3rd dose)Will continue to follow labs and make dose adjustments as needed. [facility] May 13, 2019 05:12
[2019-05-13 06:15] LABS: HEMATOCRIT 38.8 % (42.0-52.0); HEMOGLOBIN 12.3 g/dl (13.5-17.5); MEAN CORPUSCULAR HEMOGLOBIN 29.7 pg (27.0-33.0); MEAN CORPUSCULAR HGB CONC 31.7 g/dl (32.0-36.5); MEAN CORPUSCULAR VOLUME 93.7 fl (80.0-96.0); PLATELET COUNT, AUTOMATED 104 10^3/uL (150-450); RED BLOOD COUNT 4.14 10^6/uL (4.30-6.10); WHITE BLOOD COUNT 17.1 10^3/uL (4.0-10.0)
[2019-05-13 06:28] LABS: PROTHROMBIN TIME 52.9 SECONDS (11.8-14.0)
[2019-05-13 06:30] VITALS: BP 109/60
[2019-05-13 06:46] LABS: ALBUMIN 1.8 GM/DL (3.2-5.2); ALT/SGPT 13 U/L (12-78); BILIRUBIN,TOTAL 0.3 MG/DL (0.2-1.0); BLOOD UREA NITROGEN 36 MG/DL (7-18); CALCIUM LEVEL 8.7 MG/DL (8.8-10.2); CARBON DIOXIDE LEVEL 30 MEQ/L (21-32); CHLORIDE LEVEL 106 MEQ/L (98-107); CREATININE FOR GFR 1.18 MG/DL (0.70-1.30); GLOMERULAR FILTRATION RATE > 60.0 (>35); GLUCOSE, FASTING 127 MG/DL (70-100); POTASSIUM SERUM 3.7 MEQ/L (3.5-5.1); SODIUM LEVEL 133 MEQ/L (136-145); TOTAL PROTEIN 7.3 GM/DL (6.4-8.2)
[2019-05-13 06:51] LABS: INR 5.84
[2019-05-13] MEDS: ADVAIR HFA 115/21MCG INHALER INH SCH ×2 (07:25→18:12)
[2019-05-13] MEDS: RESTASIS 0.05% OU SCH ×2 (09:00→21:00)
[2019-05-13] MEDS ORDERED: WARFARIN SOD 5 MG TAB PO SCH (09:00)
[2019-05-13] MEDS: OPTHALMIC EMULSION OU SCH ×2 (09:00→21:00)
[2019-05-13] MEDS: predniSONE 20 MG TAB PO SCH (09:20)
[2019-05-13] MEDS: TORSEMIDE 20 MG TAB PO SCH ×2 (09:20→20:56)
[2019-05-13] MEDS: GABAPENTIN 300 MG CAP PO SCH ×2 (09:20→20:55)
[2019-05-13] MEDS: LACTOBACILLUS ACIDOPHILUS CAP (BACID) PO SCH ×2 (09:20→18:42)
[2019-05-13] MEDS: PANTOPRAZOLE 40MG TAB (PROTONIX) PO SCH (09:20)
[2019-05-13] MEDS: SPIRONOLACTONE 25 MG TAB PO SCH ×2 (09:21→18:42)
[2019-05-13] MEDS: guaiFENesin ER 600 MG TAB PO SCH ×2 (09:21→20:56)
[2019-05-13] MEDS: METOPROLOL SUCC (TopROL XL) 50MG **XL** TAB PO SCH (09:21)
[2019-05-13 10:24] VITALS: BP 108/68
[2019-05-13] MEDS ORDERED: CYCLOBENZAPRINE 10 MG TAB PO ONE (11:30)
[2019-05-13] MEDS: tiZANidine 4 MG TAB PO PRN ×2 (12:16→18:42)
[2019-05-13 14:34] VITALS: BP 101/58
--- NOTE | 2019-05-13 17:38 | IPNPDOC ---
Date Seen The patient was seen on 05/13/19. Progress Note SUBJECTIVE: Pt c/o neck pain but no headache or neck stiffness. on iv cefepime. no c/o pain in the left arm. refused po meds,and requested pain mgt service. Physical Examination Vitals: pls see below General Exam: Positive: Alert, Cooperative, Mild Distress Eye Exam: Positive: PERRLA, Conjunctiva & lids normal, EOMI ENT Exam: Positive: Atraumatic, Mucous membr. moist/pink, Pharynx Normal, Other ENT (tenderness along superior trapezius bilerally, occipital ridge bilaterally and SCM muscles bilaterally; ) negative kernig's negative brudzinski's. Neck Exam: Positive: +2 carotid pulse wo bruit, Other (no adenopathy; limited ROM in all dexter due to muscle spasms) Chest Exam: Positive: Clear to auscultation, Normal air movement; Negative: Rales, Rhonchi, Wheezing, Diminished Heart Exam: Positive: Irregular Rhythm (at 86 bpm) Telemetry: Positive: Atrial fibrillation (rate controlled) Abdomen Exam: Positive: Normal bowel sounds, Soft (NT ND no mass) Extremity Exam: Positive: Normal pulses; Negative: Clubbing, Cyanosis, Edema Skin Exam: Positive: Nl turgor and temperature, Other skin issue (right forearm with 2 pustular indurated lesions at site of priors IV while in hospital- surrounded by 1cm erythema. first area along elbow fold, second area to left forearm, hot to touch) Neuro Exam: Positive: Normal Speech, Strength at 5/5 X4 ext, Normal Tone, Sensation Intact, Cranial Nerves 3-12 NL, Other (family reports unsteady gait) Psych Exam: Positive: Mental status NL, Mood NL, Oriented x 3 EKG afib with RBBB LABORATORY DATA, IMAGING STUDIES, MICROBIOLOGY: PLS SEE BELOW Assessment/Plan: 83 yo male recently discharged on 05/08/19 with CHF, COPD exacerbation and ITP with chronic thrombocytopenia presented to ED with increasing neck pain and arm pain. He states his breathing is great since leaving the hospital. He slept in recliner chair and over past 1-2 days has had increasing neck stiffness, MUSTAFA , back pain and arm pain over areas of IV infiltration on left arm. He states no fever, no sweats, no diaphoresis. As for the neck and arm pain - he states it is located over occiptial and trapezius muscles to bilateral shoulders - constant, relief with laying still in recliner, worse when trying to look up or bend forward. Temporary relief with tylenol. States pain depends on activity. States right scapular pain that radiates to back of neck and into chests at same time as headache. States MUSTAFA only happens with neck/shoulder and back pain. no vision changes. no nausea, no vomiting, no SOB. Son in law states patient is weaker with walking and walking around with head "bend down", stiff gait. Patient states over past 1-2 days not as strong as usual. As for IV infiltration area to left arm, patient and daughter notice increased swelling and red to 2 past IV sites over last 2-3 days and pain with moving arm. getting worse. constant, dull achy. Pt was admitted for left arm cellulitis, and neck pain. left arm cellulitis at area of prior IV infiltrated sites during recent hospitalization IV Vanc,Cefepime, culture pustule, elevate arm, blood cultures pending Neck pain -PRN muscle relaxant -pain mgt consultated -on gabapentin -no meningeal signs. Afib - rate controlled continue same medications; on warfarin - adjust dose supratherapeutic INR - hold coumadin today. repeat INR in AM and adjust daily Recent hospitalization for COPD and CHF _ RESOLVED. continue same regimen Code status: FULL DVT prophylaxis: none needed as on warfarin with elevated INR Plan / VTE VTE Prophylaxis Ordered?: No VS, I&O, 24H, Fishbone Vital Signs/I&O Vital Signs Date Time Temp Pulse Resp B/P (MAP) Pulse Ox O2 Delivery O2 Flow Rate FiO2 05/13/19 14:34 96.0 82 16 101/58 (72) 94 05/12/19 19:01 Room Air I&O- Last 24 Hours up to 6 AM 05/13/19 06:00 Intake Total 780 ml Output Total 400 ml Balance 380 ml Laboratory Data 24H LABS Laboratory Tests 2 05/12/19 20:10: Prothrombin Time 52.1H, Prothromb Time International Ratio 5.72*H 05/13/19 05:31: Prothrombin Time 52.9H, Prothromb Time International Ratio 5.84*H, Nucleated Red Blood Cells % (auto) 0.0, Anion Gap -3L, Glomerular Filtration Rate > 60.0, Blood Urea Nitrogen 36H, Creatinine 1.18, Sodium Level 133L, Potassium Level 3.7, Chloride Level 106, Carbon Dioxide Level 30, Calcium Level 8.7L, Aspartate Amino Transf (AST/SGOT) 15, Alanine Aminotransferase (ALT/SGPT) 13, Alkaline Phosphatase 77, Total Bilirubin 0.3, Total Protein 7.3, Albumin 1.8L, Albumin/Globulin Ratio 0.33L CBC/BMP Laboratory Tests 05/13/19 05:31 Red Blood Count 4.14 L, Mean Corpuscular Volume 93.7, Mean Corpuscular Hemoglobin 29.7, Mean Corpuscular Hemoglobin Concent 31.7 L, Red Cell Distribut ion Width 17.3 H, Calcium Level 8.7 L, Aspartate Amino Transf (AST/SGOT) 15, Alanine Aminotransferase (ALT/SGPT) 13, Alkaline Phosphatase 77, Total Bilirubin 0.3, Total Protein 7.3, Albumin 1.8 L Microbiology Microbiology 05/13/19 Blood Culture, Received Pending 05/13/19 Blood Culture, Received Pending 05/12/19 Blood Culture - Preliminary, Resulted 05/12/19 Blood Culture - Preliminary, Resulted 05/12/19 Urine Culture, Received Pending ANGEOL BLOOM MD May 13, 2019 17:38
[2019-05-13] MEDS: VANCOMYCIN HCL 1,000 MG, VIAL MATE ADAPTER 1 EACH in D5W 250 ML IV SCH (18:43)
[2019-05-13] MEDS: ROSUVASTATIN 10 MG TAB (CRESTOR) PO SCH (20:55)
[2019-05-13] MEDS: DOCUSATE SODIUM 100 MG CAP PO SCH (20:56)
[2019-05-13 22:00] VITALS: BP 102/58
[2019-05-14] MEDS: CEFEPIME HCL 2 GM in D5W MINI-BAG PLUS 50 ML IV SCH ×2 (00:43→12:54)
[2019-05-14] MEDS: tiZANidine 4 MG TAB PO PRN ×4 (01:10→22:09)
[2019-05-14 02:55] VITALS: BP 123/65
[2019-05-14 04:35] VITALS: BP_SYST 123
[2019-05-14] MEDS ORDERED: IBUPROFEN 400 MG TAB PO ONE (04:45)
[2019-05-14 06:55] LABS: PROTHROMBIN TIME 53.8 SECONDS (11.8-14.0)
[2019-05-14] MEDS: ADVAIR HFA 115/21MCG INHALER INH SCH ×2 (07:07→19:44)
[2019-05-14 07:41] LABS: INR 5.96
[2019-05-14] MEDS: GABAPENTIN 300 MG CAP PO SCH ×2 (08:20→20:57)
[2019-05-14] MEDS: predniSONE 20 MG TAB PO SCH (08:21)
[2019-05-14] MEDS: LACTOBACILLUS ACIDOPHILUS CAP (BACID) PO SCH ×2 (08:21→17:29)
[2019-05-14] MEDS: SPIRONOLACTONE 25 MG TAB PO SCH ×2 (08:21→17:30)
[2019-05-14] MEDS: guaiFENesin ER 600 MG TAB PO SCH ×2 (08:21→20:57)
[2019-05-14] MEDS: DOCUSATE SODIUM 100 MG CAP PO SCH ×2 (08:22→20:57)
[2019-05-14] MEDS: PANTOPRAZOLE 40MG TAB (PROTONIX) PO SCH (08:22)
[2019-05-14] MEDS: TORSEMIDE 20 MG TAB PO SCH ×2 (08:22→20:59)
[2019-05-14] MEDS: METOPROLOL SUCC (TopROL XL) 50MG **XL** TAB PO SCH (08:23)
[2019-05-14 08:27] LABS: BASO % 0.1 % (0.0-1.0); EOS # 0.1 10^3/uL (0.0-0.50); EOS % 0.4 % (0.0-3.0); HEMATOCRIT 41.5 % (42.0-52.0); HEMOGLOBIN 13.5 g/dl (13.5-17.5); LYMPH # 1.7 10^3/uL (1.5-4.5); LYMPH % 10.9 % (24.0-44.0); MEAN CORPUSCULAR HEMOGLOBIN 31.2 pg (27.0-33.0); MEAN CORPUSCULAR HGB CONC 32.5 g/dl (32.0-36.5); MEAN CORPUSCULAR VOLUME 95.8 fl (80.0-96.0); MONO % 6.3 % (0.0-5.0); NEUTROPHILS # 12.7 10^3/uL (1.8-7.7); NEUTROPHILS % 81.5 % (36.0-66.0); PLATELET COUNT, AUTOMATED 105 10^3/uL (150-450); RED BLOOD COUNT 4.33 10^6/uL (4.30-6.10); WHITE BLOOD COUNT 15.6 10^3/uL (4.0-10.0)
[2019-05-14 08:56] LABS: ALBUMIN 1.9 GM/DL (3.2-5.2); BILIRUBIN,TOTAL 0.3 MG/DL (0.2-1.0); C REACTIVE PROTEIN QUANTITATIV 8.58 MG/DL (0.00-0.30); CALCIUM LEVEL 8.6 MG/DL (8.8-10.2); CREATININE FOR GFR 1.23 MG/DL (0.70-1.30); GLOMERULAR FILTRATION RATE 59.8 (>35); POTASSIUM SERUM 3.3 MEQ/L (3.5-5.1)
[2019-05-14] MEDS: OPTHALMIC EMULSION OU SCH ×2 (09:00→21:36)
[2019-05-14] MEDS: RESTASIS 0.05% OU SCH ×2 (09:00→21:36)
[2019-05-14] MEDS ORDERED: PHYTONADIONE 2.5 MG **1/2 TAB PO ONE (09:00)
[2019-05-14 09:10] LABS: ERYTHROCYTE SEDIMENTATION RATE 67 mm/hr (0-20)
[2019-05-14 10:15] VITALS: BP 100/55
[2019-05-14 14:00] VITALS: BP 121/63
--- NOTE | 2019-05-14 16:09 | CR ---
DATE OF CONSULTATION: 05/14/2019 CHIEF COMPLAINT: 1. Neck pain. 2. Left arm pain. REFERRING PROVIDER: Dr. Braswell HISTORY OF PRESENT ILLNESS: Tor is an 83-year-old gentleman who was admitted a few days ago for severe neck and left arm pain. History of recent hospitalization here at our hospital for cardiac issues a few weeks ago with discharge being last week. There is evidence of left arm IV cellulitis. Apparently, he was recently diagnosed with positive blood cultures. This is new onset of neck and left arm pain of about 5 days duration. He is experiencing more pain when he is standing. He is adamant not to have any new medications for pain control at this time. He wants to be evaluated by infectious disease as planned tomorrow. Current medications he is receiving is helpful only when he is lying down. My recommendation would be for further evaluation for meningeal irritation secondary to bacteremia. Due to his unstable condition, I have no further medicine recommendations at this time. He is not a interventional candidate at this time.
[2019-05-14] MEDS: ACETAMINOPHEN 500 MG TAB PO PRN (17:29)
[2019-05-14] MEDS: VANCOMYCIN HCL 1,000 MG, VIAL MATE ADAPTER 1 EACH in D5W 250 ML IV SCH (17:30)
--- NOTE | 2019-05-14 18:03 | PHACANCOPD ---
PHARMACY VANCOMYCIN DOSING Pt Demographics Demographics Patient Age:83 , Weight:102.700 , Gender: male Adjusted Body Weight Date: 05/13/19, Adjusted Body Weight: [82.12] Kg Events Past 24 Hours Events Past 24 Hours: NO: Dialysis, Diuretic Therapy, Change in CrCl, Fever, Elevation in WBC, Pending Diagnostics, Pending Procedures, Other Vancomycin Vancomycin indication: CELLULITIS LEFT ARM(POSSIBLE MRSA) Vancomycin Target Ranges: 15-20 mcg/ml Vancomycin Load Y/N: Yes Load Dose Date Time Vancomycin Load Dose: 1.5GM Date: 05/12 Time:0 Vancomycin Dose Date: 05/14/19. Current Vancomycin Dose: [1G IV Q12H] Date: 05/13/19. Current Vancomycin Dose: [1 GM Q24H] Intermittent Dosing?: No Labs Labs Item Value Date Time Sodium Level 133 MEQ/L L 05/13/19 0531 Sodium Level 137 MEQ/L 05/14/19 0632 Vancomycin Level Trough 4.3 UG/ML L 05/14/19 1649 C-Reactive Protein, Quantitative 8.58 MG/DL H 05/14/19 0632 Micro Microbiology 05/13/19 Blood Culture - Preliminary, Resulted No growth after 24 hours . All specim... 05/13/19 Blood Culture - Preliminary, Resulted No growth after 24 hours . All specim... 05/12/19 Blood Culture - Preliminary, Resulted Staphylococcus Aureus 05/12/19 Blood Culture - Preliminary, Resulted Staphylococcus Aureus 05/12/19 Urine Culture - Final, Complete Staphylococcus Aureus Creatinine Clearance Date:05/13/19. Creatinine Clearance: [55ML/MIN].CALCULATED Pending Labs VANCOMYCIN TROUGH 05/14/19 @17:00 Assessment and Plan Maintaining Current Dose?: Yes Reason for dose change: No Dose Change Pharmacist Note Pharmacist Note Date: 05/14/19. Pharmacist note:Pt trough came back today @ 4.3mcg/ml at 16:49. Dosing will be increased to 1g IV every 12 hours. A trough is scheduled for 05/15/19 @ 17:00. We will continue to monitor and adjust the dose as needed. Date: 05/13/19. Pharmacist note:83 Y0M SCR=1.2,CRCL=52.3calculated,recent hospital discharge w/ left arm cellulitis.Tx w/ Cefepime 2 grams Q12H plus Pharmacy dosed Vancomycin.1.5 grams Vancomycin administered as loading dose 05/12@2330- 0100, then will begin regimen of 1 gram [id number] 05/13@1800. First trough is scheduled to be drawn 05/14@1700(prior to thr 3rd dose)Will continue to follow labs and make dose adjustments as needed. ROMEO ABREU [facility] May 14, 2019 18:03
--- NOTE | 2019-05-14 18:17 | IPNPDOC ---
Date Seen The patient was seen on 05/14/19. Progress Note SUBJECTIVE: Despite Iv Vanco and cefepime from admission, pt has had episodes of hypothermia, and persistent leukocytosis. 2sets of blood cx: staph aureus. echo pending. urine cx: staph aureus, but denies dysuria, urgency, frequency, flank pain. He denies photophobia, fever, or altered mental status. pt still c/o neck pain when he moves his neck from side to side slightly improved with zanaflex and gabapentin. no headache. 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 able to eat with utensils without difficulty. Physical Examination Vitals: pls see below General Exam: Positive: Alert, Cooperative, Mild Distress Eye Exam: Positive: PERRLA, Conjunctiva & lids normal, EOMI ENT Exam: Positive: Atraumatic, Mucous membr. moist/pink, Pharynx Normal, Other ENT (tenderness along superior trapezius bilerally, occipital ridge bilaterally and SCM muscles bilaterally; ) negative kernig's negative brudzinski's. Neck Exam: Positive: +2 carotid pulse wo bruit, Other (no adenopathy; limited ROM in all dexter due to muscle spasms)able to touch chin to chest. Chest Exam: Positive: Clear to auscultation, Normal air movement; Negative: Rales, Rhonchi, Wheezing, Diminished Heart Exam: Positive: Irregular Rhythm (at 86 bpm) Telemetry: Positive: Atrial fibrillation (rate controlled) Abdomen Exam: Positive: Normal bowel sounds, Soft (NT ND no mass) Extremity Exam: Positive: Normal pulses; Negative: Clubbing, Cyanosis, Edema Skin Exam: Positive: Nl turgor and temperature, Other skin issue (right forearm with 2 pustular indurated lesions at site of priors IV while in hospital- surrounded by 1cm erythema. first area along elbow fold, second area to left forearm, hot to touch) Neuro Exam: Positive: Normal Speech, Strength at 5/5 X4 ext, Normal Tone, Sensation Intact, Cranial Nerves 3-12 NL, Other (family reports unsteady gait) Psych Exam: Positive: Mental status NL, Mood NL, Oriented x 3 EKG afib with RBBB LABORATORY DATA, IMAGING STUDIES, MICROBIOLOGY: PLS SEE BELOW Assessment/Plan: 83 yo male recently discharged on 05/08/19 with CHF, COPD exacerbation and ITP with chronic thrombocytopenia presented to ED with increasing neck pain and arm pain. He states his breathing is great since leaving the hospital. He slept in recliner chair and over past 1-2 days has had increasing neck stiffness, MUSTAFA , back pain and arm pain over areas of IV infiltration on left arm. He states no fever, no sweats, no diaphoresis. As for the neck and arm pain - he states it is located over occiptial and trapezius muscles to bilateral shoulders - constant, relief with laying still in recliner, worse when trying to look up or bend forward. Temporary relief with tylenol. States pain depends on activity. States right scapular pain that radiates to back of neck and into chests at same time as headache. States MUSTAFA only happens with neck/shoulder and back pain. no vision changes. no nausea, no vomiting, no SOB. Son in law states patient is weaker with walking and walking around with head "bend down", stiff gait. Patient states over past 1-2 days not as strong as usual. As for IV infiltration area to left arm, patient and daughter notice increased swelling and red to 2 past IV sites over last 2-3 days and pain with moving arm. getting worse. constant, dull achy. Pt was admitted for left arm cellulitis, and neck pain. left arm cellulitis at area of prior IV infiltrated sites during recent hospitalization -IV Vanc,Cefepime, culture pustule, elevate arm, blood cultures pending Staph aureus bacteremia -on iv vanco -repeat blood cx pending result -Echo to rule out endocarditis -Defer to ID if SUSANNAH needed -with neck pain, concerning for disciitis, but no neurological deficits at this time, and unable to obtain MRI due to coronary stents Staph aureus UTI -on iv vanco Neck pain -due to (+) staph aureus bacteremia, concerning for possible disciitis, but unable to get MRI due to coronary stents. will r/o endocarditis with SUSANNAH if recommended by ID. -PRN muscle relaxant -pain mgt consulted -on gabapentin and zanaflex -no meningeal signs. to suspect meningitis Afib - rate controlled continue same medications; held warfarin due to high IN R. supratherapeutic INR - hold coumadin today. repeat INR in AM and adjust daily Recent hospitalization for COPD and CHF _ RESOLVED. continue same regimen Code status: FULL DVT prophylaxis: none needed as on warfarin with elevated INR Plan / VTE VTE Prophylaxis Ordered?: No VS, I&O, 24H, Fishbone Vital Signs/I&O Vital Signs Date Time Temp Pulse Resp B/P (MAP) Pulse Ox O2 Delivery O2 Flow Rate FiO2 05/14/19 14:00 96.5 84 18 121/63 (82) 91 05/14/19 04:35 2.0 05/12/19 19:01 Room Air I&O- Last 24 Hours up to 6 AM 05/14/19 06:00 Intake Total 1670 ml Output Total 3675 ml Balance -2005 ml Laboratory Data 24H LABS Laboratory Tests 2 05/14/19 06:32: Immature Granulocyte % (Auto) 0.8, White Blood Count 15.6H, Red Blood Count 4.33, Hemoglobin 13.5, Hematocrit 41.5L, Mean Corpuscular Volume 95.8, Mean Corpuscular Hemoglobin 31.2, Mean Corpuscular Hemoglobin Concent 32.5, Red Cell Distribution Width 17.0H, Platelet Count 105L, Neutrophils (%) (Auto) 81.5H, Lymphocytes (%) (Auto) 10.9L, Monocytes (%) (Auto) 6.3H, Eosinophils (%) (Auto) 0.4, Basophils (%) (Auto) 0.1, Neutrophils # (Auto) 12.7H, Lymphocytes # (Auto) 1.7, Monocytes # (Auto) 1.0H, Eosinophils # (Auto) 0.1, Basophils # (Auto) 0.0, Nucleated Red Blood Cells % (auto) 0.0, Erythrocyte Sedimentation Rate 67H, Prothrombin Time 53.8H, Prothromb Time International Ratio 5.96*H, Anion Gap 8, Glomerular Filtration Rate 59.8, Blood Urea Nitrogen 40H, Creatinine 1.23, Sodium Level 137, Potassium Level 3.3L, Chloride Level 101, Carbon Dioxide Level 28, Calcium Level 8.6L, Aspartate Amino Transf (AST/SGOT) 27, Alanine Aminotransferase (ALT/SGPT) 20, Alkaline Phosphatase 102, Total Bilirubin 0.3, Total Protein 7.0, Albumin 1.9L, C-Reactive Protein, Quantitative 8.58H, Albumin/Globulin Ratio 0.37L, Procalcitonin 0.42 05/14/19 16:49: Vancomycin Level Trough 4.3L CBC/BMP Laboratory Tests 05/14/19 06:32 Red Blood Count 4.33, Mean Corpuscular Volume 95.8, Mean Corpuscular Hemoglobin 31.2, Mean Corpuscular Hemoglobin Concent 32.5, Red Cell Distribution Width 17.0 H, Neutrophils (%) (Auto) 81.5 H, Lymphocytes (%) (Auto) 10.9 L, Monocytes (%) (Auto) 6.3 H, Eosinophils (%) (Auto) 0.4, Basophils (%) (Auto) 0.1, Neutrophils # (Auto) 12.7 H, Lymphocytes # (Auto) 1.7, Monocytes # (Auto) 1.0 H, Eosinophils # (Auto) 0.1, Basophils # (Auto) 0.0, Calcium Level 8.6 L, Aspartate Amino Transf (AST/SGOT) 27, Alanine Aminotransferase (ALT/SGPT) 20, Alkaline Phosphatase 102, Total Bilirubin 0.3, Total Protein 7.0, Albumin 1.9 L Microbiology Microbiology 05/13/19 Blood Culture - Preliminary, Resulted No growth after 24 hours . All specim... 05/13/19 Blood Culture - Preliminary, Resulted No growth after 24 hours . All specim... 05/12/19 Blood Culture - Preliminary, Resulted Staphylococcus Aureus 05/12/19 Blood Culture - Preliminary, Resulted Staphylococcus Aureus 05/12/19 Urine Culture - Final, Complete Staphylococcus Aureus ANGELO BLOOM MD May 14, 2019 18:08
[2019-05-14] MEDS ORDERED: ISOVUE-370 76% 100ML VIAL (Q9967) As Ordered ONE (18:31)
[2019-05-14] MEDS ORDERED: POTASSIUM CHLORIDE 10 MEQ SR TABLET PO ONE (19:00)
--- NOTE | 2019-05-14 20:12 | REPVR ---
EXAM: CT Cervical Spine with Contrast EXAM DATE/TIME: 05/14/2019 6:59 PM CLINICAL HISTORY: 83 years old, male; Neck pain; Additional info: W/ contrast R/O disciitis neck pain staph aureus bacteremia TECHNIQUE: Imaging protocol: Axial computed tomography images of the cervical spine with intravenous contrast. Coronal and sagittal reformatted images were created and reviewed. Radiation optimization: All CT scans at this facility use at least one of these dose optimization techniques: automated exposure control; mA and/or kV adjustment per patient size (includes targeted exams where dose is matched to clinical indication); or iterative reconstruction. Contrast material: ISOVUE 370; Contrast volume: 75 ml; Contrast route: IV; COMPARISON: CR Spine,Cervical 2 or 3 views 05/14/2019 6:38 PM FINDINGS: Vertebrae: There is no fracture. Vertebral alignment is normal. There is no focal osseous lesion. There is no bone erosion. C2-C3: No disc herniation. No spinal stenosis. No neural foraminal narrowing. C3-C4: No disc herniation. No spinal stenosis. No neural foraminal narrowing. C4-C5: No disc herniation. No spinal stenosis. No neural foraminal narrowing. C5-C6: Spondylosis and disc space narrowing. There is a left paracentral posterior osteophyte and disc protrusion. This results in the left lateral recess stenosis. No foraminal stenosis. C6-C7: Spondylosis and disc space narrowing with posterior osteophyte and disc bulge resulting in mild central stenosis. No foraminal stenosis. C7-T1: No disc herniation. No spinal stenosis. No neural foraminal narrowing. Soft tissues: There is no evidence of prevertebral, paraspinous or intraspinal mass, fluid collection or abnormal enhancement. Lungs: Lung apices are normal. IMPRESSION: 1. No acute findings. 2. No evidence of infectious process in the cervical spine. 3. Degenerative changes at C5-C6 and C6-C7 described above. Electronically signed by: Herbert Alejandro On 05/14/2019 20:11:47 PM
--- NOTE | 2019-05-14 20:21 | REP ---
CERVICAL SPINE, AP AND LATERAL: Three AP and lateral views of the cervical spine are performed. No compression fracture is seen. There is no prevertebral soft tissue swelling. There is moderate spurring of C4 through C7 with moderate disc space narrowing and subchondral sclerosis at C5-6 and C6-7. There is diffuse narrowing, sclerosis and spurring at the posterior facet joints. IMPRESSION: Degenerative changes without evidence of fracture or dislocation. Electronically Signed by Jovany Farfan MD 05/16/2019 12:52 P
--- NOTE | 2019-05-14 20:23 | REP ---
THORACIC SPINE, AP AND LATERAL: Three AP and lateral views of the thoracic spine performed. There is no compression fracture or malalignment with normal thoracic kyphosis. Diffuse spurring is noted with mild disc space narrowing at multiple levels with subchondral sclerosis. AP view is limited by multiple sternal wires. IMPRESSION: Diffuse degenerative changes. No fracture or dislocation. Electronically Signed by Jovany Farfan MD 05/16/2019 12:53 P
[2019-05-14] MEDS: ROSUVASTATIN 10 MG TAB (CRESTOR) PO SCH (20:57)
[2019-05-14 22:00] VITALS: BP 113/65
[2019-05-15] MEDS: CEFEPIME HCL 2 GM in D5W MINI-BAG PLUS 50 ML IV SCH ×2 (00:08→11:41)
[2019-05-15] MEDS: ACETAMINOPHEN 500 MG TAB PO PRN ×3 (00:55→18:58)
[2019-05-15 02:00] VITALS: BP 109/63
[2019-05-15] MEDS: tiZANidine 4 MG TAB PO PRN ×2 (05:40→18:58)
[2019-05-15 06:00] VITALS: BP 99/61
[2019-05-15] MEDS ORDERED: VANCOMYCIN HCL 1,000 MG, VIAL MATE ADAPTER 1 EACH in D5W 250 ML IV SCH (06:00)
[2019-05-15 06:08] LABS: BASO % 0.2 % (0.0-1.0); EOS # 0.1 10^3/uL (0.0-0.50); EOS % 0.5 % (0.0-3.0); HEMATOCRIT 40.6 % (42.0-52.0); HEMOGLOBIN 13.5 g/dl (13.5-17.5); LYMPH # 1.5 10^3/uL (1.5-4.5); LYMPH % 11.8 % (24.0-44.0); MEAN CORPUSCULAR HEMOGLOBIN 31.4 pg (27.0-33.0); MEAN CORPUSCULAR HGB CONC 33.3 g/dl (32.0-36.5); MEAN CORPUSCULAR VOLUME 94.4 fl (80.0-96.0); MONO # 0.9 10^3/uL (0.0-0.8); MONO % 7.3 % (0.0-5.0); NEUTROPHILS # 10.1 10^3/uL (1.8-7.7); NEUTROPHILS % 79.3 % (36.0-66.0); PLATELET COUNT, AUTOMATED 104 10^3/uL (150-450); WHITE BLOOD COUNT 12.7 10^3/uL (4.0-10.0)
[2019-05-15 06:20] LABS: INR 2.48; PROTHROMBIN TIME 26.7 SECONDS (11.8-14.0)
[2019-05-15 06:49] LABS: BLOOD UREA NITROGEN 39 MG/DL (7-18); CALCIUM LEVEL 8.5 MG/DL (8.8-10.2); CARBON DIOXIDE LEVEL 28 MEQ/L (21-32); CHLORIDE LEVEL 102 MEQ/L (98-107); CREATININE FOR GFR 1.16 MG/DL (0.70-1.30); GLOMERULAR FILTRATION RATE > 60.0 (>35); GLUCOSE, FASTING 105 MG/DL (70-100); POTASSIUM SERUM 3.5 MEQ/L (3.5-5.1); SODIUM LEVEL 138 MEQ/L (136-145)
[2019-05-15] MEDS: ADVAIR HFA 115/21MCG INHALER INH SCH ×2 (07:53→21:03)
[2019-05-15] MEDS: SPIRONOLACTONE 25 MG TAB PO SCH ×2 (08:20→17:00)
[2019-05-15] MEDS: METOPROLOL SUCC (TopROL XL) 50MG **XL** TAB PO SCH (08:20)
[2019-05-15] MEDS: TORSEMIDE 20 MG TAB PO SCH ×2 (08:20→20:50)
[2019-05-15 08:38] VITALS: BP 102/61
[2019-05-15] MEDS: guaiFENesin ER 600 MG TAB PO SCH ×2 (09:08→20:49)
[2019-05-15] MEDS: PANTOPRAZOLE 40MG TAB (PROTONIX) PO SCH (09:09)
[2019-05-15] MEDS: LACTOBACILLUS ACIDOPHILUS CAP (BACID) PO SCH ×2 (09:11→18:57)
[2019-05-15] MEDS: DOCUSATE SODIUM 100 MG CAP PO SCH ×2 (09:11→20:49)
[2019-05-15] MEDS: GABAPENTIN 300 MG CAP PO SCH ×2 (09:11→20:50)
[2019-05-15] MEDS: predniSONE 20 MG TAB PO SCH (09:12)
[2019-05-15] MEDS: POTASSIUM CHLORIDE 10 MEQ SR TABLET PO SCH (09:12)
[2019-05-15] MEDS: RESTASIS 0.05% OU SCH ×2 (09:13→20:51)
[2019-05-15] MEDS: OPTHALMIC EMULSION OU SCH ×2 (09:13→20:51)
--- NOTE | 2019-05-15 11:05 | IPNPDOC ---
Date Seen The patient was seen on 05/15/19. Progress Note SUBJECTIVE: pt still on Iv Vanco and cefepime from admission,2sets of blood cx: staph aureus. echo pending report. urine cx: staph aureus, but denies dysuria, urgency, frequency, flank pain. He denies photophobia, fever, or altered mental status. pt still c/o neck pain when he moves his neck from side to side slightly improved with zanaflex and gabapentin. no headache. 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 able to eat with utensils without difficulty. CT neck: no signs of infection. Awaiting ID recommendations. Physical Examination Vitals: pls see below General Exam: Positive: Alert, Cooperative, Mild Distress Eye Exam: Positive: PERRLA, Conjunctiva & lids normal, EOMI ENT Exam: Positive: Atraumatic, Mucous membr. moist/pink, Pharynx Normal, Other ENT (tenderness along superior trapezius bilerally, occipital ridge bilaterally and SCM muscles bilaterally; ) negative kernig's negative brudzinski's. Neck Exam: Positive: +2 carotid pulse wo bruit, Other (no adenopathy; limited ROM in all dexter due to muscle spasms)able to touch chin to chest. Chest Exam: Positive: Clear to auscultation, Normal air movement; Negative: Rales, Rhonchi, Wheezing, Diminished Heart Exam: Positive: Irregular Rhythm (at 86 bpm) Telemetry: Positive: Atrial fibrillation (rate controlled) Abdomen Exam: Positive: Normal bowel sounds, Soft (NT ND no mass) Extremity Exam: Positive: Normal pulses; Negative: Clubbing, Cyanosis, Edema Skin Exam: Positive: Nl turgor and temperature, Other skin issue (right forearm with 2 pustular indurated lesions at site of priors IV while in hospital- surrounded by 1cm erythema. first area along elbow fold, second area to left forearm, hot to touch) Neuro Exam: Positive: Normal Speech, Strength at 5/5 X4 ext, Normal Tone, Sensation Intact, Cranial Nerves 3-12 NL, Other (family reports unsteady gait) Psych Exam: Positive: Mental status NL, Mood NL, Oriented x 3 EKG afib with RBBB LABORATORY DATA, IMAGING STUDIES, MICROBIOLOGY: PLS SEE BELOW Assessment/Plan: 83 yo male recently discharged on 05/08/19 with CHF, COPD exacerbation and ITP with chronic thrombocytopenia presented to ED with increasing neck pain and arm pain. He states his breathing is great since leaving the hospital. He slept in recliner chair and over past 1-2 days has had increasing neck stiffness, MUSTAFA , back pain and arm pain over areas of IV infiltration on left arm. He states no fever, no sweats, no diaphoresis. As for the neck and arm pain - he states it is located over occiptial and trapezius muscles to bilateral shoulders - constant, relief with laying still in recliner, worse when trying to look up or bend forward. Temporary relief with tylenol. States pain depends on activity. States right scapular pain that radiates to back of neck and into chests at same time as headache. States MUSTAFA only happens with neck/shoulder and back pain. no vision changes. no nausea, no vomiting, no SOB. Son in law states patient is weaker with walking and walking around with head "bend down", stiff gait. Patient states over past 1-2 days not as strong as usual. As for IV infiltration area to left arm, patient and daughter notice increased swelling and red to 2 past IV sites over last 2-3 days and pain with moving arm. getting worse. constant, dull achy. Pt was admitted for left arm cellulitis, and neck pain. left arm cellulitis at area of prior IV infiltrated sites during recent hospitalization -IV Vanc,Cefepime, culture pustule, elevate arm, blood cultures pending Staph aureus bacteremia -on iv vanco -repeat blood cx pending result -Echo to rule out endocarditis -Defer to ID if SUSANNAH needed -with neck pain, concerning for disciitis, but no neurological deficits at this time, and unable to obtain MRI due to coronary stents Staph aureus UTI -on iv vanco Neck pain -due to (+) staph aureus bacteremia, concerning for possible disciitis, but unable to get MRI due to coronary stents. will r/o endocarditis with SUSANNAH if recommended by ID. -PRN muscle relaxant -pain mgt consulted -on gabapentin and zanaflex -no meningeal signs. to suspect meningitis Afib - rate controlled continue same medications; held warfarin due to high INR. supratherapeutic INR - hold coumadin today. repeat INR in AM and adjust daily Recent hospitalization for COPD and CHF _ RESOLVED. continue same regimen Code status: FULL DVT prophylaxis: none needed as on warfarin with elevated INR Plan / VTE VTE Prophylaxis Ordered?: No VS, I&O, 24H, Fishbone Vital Signs/I&O Vital Signs Date Time Temp Pulse Resp B/P (MAP) Pulse Ox O2 Delivery O2 Flow Rate FiO2 05/15/19 08:38 97.5 72 20 102/61 (75) 96 05/14/19 04:35 2.0 05/12/19 19:01 Room Air I&O- Last 24 Hours up to 6 AM 05/15/19 06:00 Intake Total 2490 ml Output Total 2480 ml Balance 10 ml Laboratory Data 24H LABS Laboratory Tests 2 05/14/19 16:49: Vancomycin Level Trough 4.3L 05/15/19 05:40: Immature Granulocyte % (Auto) 0.9, White Blood Count 12.7H, Red Blood Count 4.30, Hemoglobin 13.5, Hematocrit 40.6L, Mean Corpuscular Volume 94.4, Mean Corpuscular Hemoglobin 31.4, Mean Corpuscular Hemoglobin Concent 33.3, Red Cell Distribution Width 16.9H, Platelet Count 104L, Neutrophils (%) (Auto) 79.3H, Lymphocytes (%) (Auto) 11.8L, Monocytes (%) (Auto) 7.3H, Eosinophils (%) (Auto) 0.5, Basophils (%) (Auto) 0.2, Neutrophils # (Auto) 10.1H, Lymphocytes # (Auto) 1.5, Monocytes # (Auto) 0.9H, Eosinophils # (Auto) 0.1, Basophils # (Auto) 0.0, Nucleated Red Blood Cells % (auto) 0.0, Prothrombin Time 26.7H, Prothromb Time International Ratio 2.48, Anion Gap 8, Glomerular Filtration Rate > 60.0, Blood Urea Nitrogen 39H, Creatinine 1.16, Sodium Level 138, Potassium Level 3.5, Chloride Level 102, Carbon Dioxide Level 28, Calcium Level 8.5L CBC/BMP Laboratory Tests 05/15/19 05:40 Red Blood Count 4.30, Mean Corpuscular Volume 94.4, Mean Corpuscular Hemoglobin 31.4, Mean Corpuscular Hemoglobin Concent 33.3, Red Cell Distribution Width 16.9 H, Neutrophils (%) (Auto) 79.3 H, Lymphocytes (%) (Auto) 11.8 L, Monocytes (%) (Auto) 7.3 H, Eosinophils (%) (Auto) 0.5, Basophils (%) (Auto) 0.2, Neutrophils # (Auto) 10.1 H, Lymphocytes # (Auto) 1.5, Monocytes # (Auto) 0.9 H, Eosinophils # (Auto) 0.1, Basophils # (Auto) 0.0, Calcium Level 8.5 L Microbiology Microbiology 05/13/19 Blood Culture - Preliminary, Resulted No growth after 24 hours . All specim... 05/13/19 Blood Culture - Preliminary, Resulted No growth after 24 hours . All specim... 05/12/19 Blood Culture - Final, Complete Staphylococcus Aureus 05/12/19 Blood Culture - Final, Complete Staphylococcus Aureus 05/12/19 Urine Culture - Final, Complete Staphylococcus Aureus ANGELO BLOOM MD May 15, 2019 10:31
[2019-05-15] MEDS ORDERED: PILL CUTTER 1 EACH XX PRN (11:15)
--- NOTE | 2019-05-15 11:43 | REP ---
Chest x-ray: Two views. History: Cough. Comparison chest x-ray: May 12, 2019. Findings: The patient is status post prior median sternotomy. The aorta is calcific and tortuous as before. Heart is not enlarged. There are interstitial fibrotic markings in the bases bilaterally. No acute infiltrate is seen. Pulmonary vasculature is not increased. There are degenerative changes in the thoracic spine. Impression: Bibasilar interstitial fibrosis pattern. No acute infiltrate. Prior sternotomy. Electronically Signed by Vlad Driver MD 05/15/2019 11:34 A
[2019-05-15] MEDS ORDERED: tiZANidine 4 MG TAB PO ONE (12:00)
[2019-05-15 12:23] VITALS: BP 100/60
[2019-05-15] MEDS ORDERED: ISOVUE-370 76% 100ML VIAL (Q9967) As Ordered ONE (16:54)
--- NOTE | 2019-05-15 17:59 | REPVR ---
EXAM: CT Chest With Contrast EXAM DATE/TIME: 05/15/2019 5:14 PM CLINICAL HISTORY: 83 years old, male; Condition or disease; Other: Mssa bacteremia TECHNIQUE: Imaging protocol: Axial computed tomography images of the chest with intravenous contrast. Coronal and sagittal reformatted images were created and reviewed. 3D rendering: MIP reconstructed images were created and reviewed. Radiation optimization: All CT scans at this facility use at least one of these dose optimization techniques: automated exposure control; mA and/or kV adjustment per patient size (includes targeted exams where dose is matched to clinical indication); or iterative reconstruction. Contrast material: ISOVUE 370; Contrast volume: 75 ml; Contrast route: IV; COMPARISON: CT Chest without contrast 09/28/2018 6:32 PM FINDINGS: Lungs: There is bibasilar compressive atelectasis. Although motion artifact degrades the images there is evidence of bilateral bronchial wall thickening predominantly in the lower lung zones consistent with bronchitis. 9 mm noncalcified nodule in the right lower lobe. Findings stable in comparison to the prior study. Minimal upper lung zone centrilobular emphysema. Pleural space: Small right pleural effusion. Pleural thickening at the left lung base. Bilateral pleural calcifications consistent with prior exposure to asbestos. No pleural mass demonstrated. Heart: Status post CABG. Coronary artery disease. Disc-shaped thickwalled pericardial fluid collection demonstrated in the inferior pericardium measures 2 x 8.2 x 5.2 cm. Finding of uncertain significance. Infection including abscess to be excluded clinically. Status post coronary artery stenting. Pulmonary arteries: No gross pulmonary emboli although study not optimized for detection of pulmonary emboli. Aorta: The aorta demonstrates mild atherosclerotic calcification. Lymph nodes: Again demonstrated are multiple small mediastinal lymph nodes likely postinflammatory. Bones/joints: The spine demonstrates mild degenerative changes. Status post sternotomy. Osteoporosis. Soft tissues: Unremarkable. IMPRESSION: 1. Although motion artifact degrades the images there is evidence of bilateral bronchial wall thickening predominantly in the lower lung zones consistent with bronchitis. 2. Minimal upper lung zone centrilobular emphysema. 3. Bilateral pleural calcifications consistent with prior exposure to asbestos. No pleural mass demonstrated. 4. Status post CABG. 5. No gross pulmonary emboli although study not optimized for detection of pulmonary emboli. 6. Disc-shaped thickwalled pericardial fluid collection demonstrated in the inferior pericardium measures 2 x 8.2 x 5.2 cm. Finding of uncertain significance. Infection including abscess to be excluded clinically. Electronically signed by: Rian Nguyen On 05/15/2019 17:59:23 PM
[2019-05-15] MEDS: NAFCILLIN SOD 2 GM in D5W MINI-BAG PLUS 50 ML IV SCH (18:58)
[2019-05-15] MEDS: ROSUVASTATIN 10 MG TAB (CRESTOR) PO SCH (20:49)
[2019-05-16] MEDS: NAFCILLIN SOD 2 GM in D5W MINI-BAG PLUS 50 ML IV SCH ×2 (00:17→06:09)
[2019-05-16] MEDS: ACETAMINOPHEN 500 MG TAB PO PRN ×2 (05:42→13:36)
[2019-05-16] MEDS: tiZANidine 4 MG TAB PO PRN ×2 (05:42→13:36)
[2019-05-16 06:14] VITALS: BP 87/51
[2019-05-16 06:45] VITALS: BP 84/60
--- NOTE | 2019-05-16 06:52 | CR ---
DATE OF CONSULTATION: 05/15/2019 Asked to consult by Dr. Braswell for evaluation of Staphylococcus aureus bacteremia. HISTORY OF PRESENT ILLNESS: Mr. Terrazas is an 83-year-old gentleman who was recently discharged from the hospital after he had spent a week for congestive heart failure and chronic obstructive pulmonary disease (COPD) exacerbation. He was discharged on May 08 and re-admitted on May 12 with complaint of chest pain, headache, pain radiating into his left arm and neck. The patient stated his pain was so bad he slept in a recliner chair for to 1 to 2 days prior to admission because of neck stiffness and headache. His left arm had two IV sites that had infiltrated and he had developed pustules above his left wrist area and left antecubital area. He had no fever, chills or night sweats. No diaphoresis. The patient was started on broad-spectrum antibiotic with IV vancomycin and cefepime. Blood cultures drawn were positive for Staphylococcus aureus. Urine culture was positive for Staphylococcus aureus Methicillin-Susceptible Staphylococcus aureus (MSSA). He has no nausea, vomiting or diarrhea. The patient described mostly the pain on the right side of his trapezius muscle. He had some relief today with muscle relaxant except that it gave him very cotton mouth feeling. He was seen by pain clinic for evaluation. According to the family, his IV sites were infected just before he was discharged. PAST MEDICAL HISTORY IS SIGNIFICANT FOR: 1. Idiopathic thrombocytopenia purpura (ITP ) 2. IgG kappa monoclonal gammopathy. 3. Diastolic congestive heart failure 4. Coronary artery disease status post coronary artery bypass graft (CABG). He does not have any valve replacement or pacemaker. 5. Gastroesophageal reflux disease. 6. Hypertension. 7. Benign prostatic hypertrophy. 8. Atrial fibrillation. 9. Chronic obstructive pulmonary disease (COPD) 10. Hyperlipidemia. 11. Osteoarthritis. 12. History of prostate cancer status post radiation therapy. 13. 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 PAST SURGICAL HISTORY: 1. Status post nephrectomy after an injury as a kid. 2. Appendectomy 2000. 3. Angioplasty and stents in 2001. 4. Left coronary artery bypass in 2007. 5. Most surgery to the nose for skin cancer 2016. FAMILY HISTORY: Colon cancer in father, brother and sister. Breast cancer in another sister. SOCIAL HISTORY: He is . He lives with his . His daughter is his healthcare proxy, Tracy. He is an ex-smoker, quit 30 years ago. Denies alcohol or drug use. ALLERGIES: No known drug allergies. MEDICATIONS: - vancomycin 1 gram every 12 hours - cefepime 2 grams every 12 hours - albuterol/Atrovent nebulizers - Colace 100 mg by mouth twice a day - gabapentin 1200 mg by mouth at bedtime (q.h.s.) - guaifenesin 600 mg by mouth twice a day - rosuvastatin 20 mg by mouth at bedtime (q.h.s.) - torsemide 20 mg by mouth at bedtime (q.h.s.) - Milk of Magnesium as needed - torsemide 40 mg daily - spironolactone 25 mg twice a day - metoprolol 50 mg daily - pantoprazole 40 mg daily - tizanidine 2 mg every 6 hours as needed - prednisone 10 mg by mouth every a.m. LABORATORY DATA: White count 12.7 on admission was 18.7, hemoglobin 13.5, hematocrit 40.6, platelets 104, 79% neutrophils, 11% lymphocytes, 7% monocytes. ESR 67. Sodium 138, potassium 3.5, chloride 102, bicarb 28, BUN 39, creatinine 1.16, glucose 105, calcium 8.5, CRP 8.58, albumin 1.9, total protein 7. Procalcitonin 0.42. Blood cultures two sets from 05/12 are positive for MSSA. Urine positive for MSSA. Repeat blood cultures done 24 hours after admission were negative, susceptibility MSSA sensitive to daptomycin, gentamicin, doxycycline, resistant to clindamycin, erythromycin and penicillin. 05/02 blood cultures done on previous admission were negative. Cervical spine CT done on 05/14 with contrast showed no herniation, no spinal stenosis, there are no acute findings. Chest x-ray 05/15 two views shows bibasilar interstitial fibrosis. No acute infiltrates. Cervical spine x-ray with some sclerosis and disk space narrowing at C5-6-7. PHYSICAL EXAMINATION: He is a healthy looking gentleman in no acute distress. He has difficulty getting up in a sitting position due to neck pain. He has been afebrile throughout this admission. On physical examination, heart normal S1-S2. No murmurs appreciated. Distant. LUNGS: Diminished breath sounds at the bases with diffuse exterior rhonchi. ABDOMEN: Obese, soft, nontender. No hepatosplenomegaly. BACK: No costovertebral angle (CVA) or lumbosacral tenderness. No cervical spine tenderness, but he definitely has right trapezius tenderness. Neck is not stiff, normal range of motion, extension, flexion and rotation. NEUROLOGIC EXAM: Normal upper and lower extremity strength. SKIN: He has +2 pustules, one above the left wrist, which is purulent and pus was extracted and sent for culture, another one in the left antecubital area which is dry and there is no purulence. IMPRESSION: 83-year-old gentleman with Staphylococcus aureus bacteremia from infected phlebitis. Peripheral IV with a new onset neck pain concerning for diskitis or abscess. The patient had a CT neck which did not show any evidence of diskitis or epidural abscess and chest x-ray and neck x-ray all of which were benign. The patient's main concern currently is his neck pain radiating to his arm. He is on broad-spectrum antibiotics, which seems to be de-escalated to IV nafcillin for more narrow spectrum antibiotic. He had an echocardiogram done today that is also still pending. PLAN: Obtain chest CT which was done tonight to rule out an abscess. This was reviewed with Dr. Braswell. There is some concern of a large 2.8 x 8.2 x 5.2 cm. Disk-shaped, thick-walled pericardial fluid collection in the anterior pericardium, which is of unclear significance; infection or abscess cannot be excluded. Echocardiogram is done, but the results are pending to rule out endocarditis. Plan will call Dr. Ramos for consultation in the morning regarding the pericardial effusion and whether this needs to be drained. Possibly the patient may need a transesophageal echocardiogram. Case has been discussed with Dr. Braswell. [facility]
[2019-05-16 07:16] LABS: BASO % 0.2 % (0.0-1.0); EOS # 0.1 10^3/uL (0.0-0.50); EOS % 0.7 % (0.0-3.0); HEMATOCRIT 37.2 % (42.0-52.0); HEMOGLOBIN 12.3 g/dl (13.5-17.5); LYMPH # 1.5 10^3/uL (1.5-4.5); LYMPH % 11.9 % (24.0-44.0); MEAN CORPUSCULAR HEMOGLOBIN 31.2 pg (27.0-33.0); MEAN CORPUSCULAR HGB CONC 33.1 g/dl (32.0-36.5); MEAN CORPUSCULAR VOLUME 94.4 fl (80.0-96.0); MONO # 0.8 10^3/uL (0.0-0.8); MONO % 6.8 % (0.0-5.0); NEUTROPHILS # 9.9 10^3/uL (1.8-7.7); NEUTROPHILS % 79.6 % (36.0-66.0); PLATELET COUNT, AUTOMATED 118 10^3/uL (150-450); RED BLOOD COUNT 3.94 10^6/uL (4.30-6.10); WHITE BLOOD COUNT 12.4 10^3/uL (4.0-10.0)
[2019-05-16 07:26] LABS: INR 2.21; PROTHROMBIN TIME 24.3 SECONDS (11.8-14.0)
[2019-05-16] MEDS: ADVAIR HFA 115/21MCG INHALER INH SCH (07:34)
[2019-05-16 07:40] VITALS: BP 90/70
[2019-05-16 07:40] LABS: CALCIUM LEVEL 8.7 MG/DL (8.8-10.2); CREATININE FOR GFR 1.25 MG/DL (0.70-1.30); GLOMERULAR FILTRATION RATE 58.7 (>35); POTASSIUM SERUM 3.6 MEQ/L (3.5-5.1)
[2019-05-16 09:00] VITALS: BP 90/54
[2019-05-16] MEDS ORDERED: predniSONE 10 MG TAB PO SCH (09:00)
[2019-05-16] MEDS: SPIRONOLACTONE 25 MG TAB PO SCH (09:00)
[2019-05-16] MEDS: TORSEMIDE 20 MG TAB PO SCH (09:00)
[2019-05-16] MEDS: METOPROLOL SUCC (TopROL XL) 50MG **XL** TAB PO SCH (09:00)
[2019-05-16] MEDS: guaiFENesin ER 600 MG TAB PO SCH (09:12)
[2019-05-16] MEDS: POTASSIUM CHLORIDE 10 MEQ SR TABLET PO SCH (09:12)
[2019-05-16] MEDS: DOCUSATE SODIUM 100 MG CAP PO SCH (09:12)
[2019-05-16] MEDS: PANTOPRAZOLE 40MG TAB (PROTONIX) PO SCH (09:12)
[2019-05-16] MEDS: GABAPENTIN 300 MG CAP PO SCH (09:12)
[2019-05-16] MEDS: LACTOBACILLUS ACIDOPHILUS CAP (BACID) PO SCH (09:13)
[2019-05-16] MEDS: OPTHALMIC EMULSION OU SCH (09:14)
[2019-05-16] MEDS: RESTASIS 0.05% OU SCH (09:14)
--- NOTE | 2019-05-16 09:51 | ECHO ---
DATE OF PROCEDURE: 05/14/2019 REFERRING PHYSICIAN: Dr. Yuridia Braswell. REASON FOR THE ECHOCARDIOGRAM: Bacteremia. 2D MEASUREMENT: IVS - 0 97 cm LV - 4.7 cm LVPW - 0.97 cm LA - 4.1 cm Aorta 8.5 cm DOPPLER MEASUREMENT: Peak velocity across the aortic valve - 1.3 m/s Peak velocity across the LVOT - 0.74 m/s Mitral E - 0.78. Maximum tricuspid valve velocity - 3.0 m/s. 2D COMMENTS: 1. Normal left ventricular size, wall thickness, and normal global left ventricular systolic function. The estimated left ventricular systolic ejection fraction is 60-65%. 2. Mildly enlarged left atrium. The right atrium and the right ventricle also appeared to be mildly enlarged. 3. The atrial septum appeared to be normal without evidence of defect or shunt. 4. Normal aortic root. 5. No pericardial effusion seen. 6. Mildly calcified aortic valve with normal leaflet excursion. Mildly calcified mitral annulus with normal anterior mitral valve leaflet motion. Normal tricuspid valve and pulmonic valve. The proximal pulmonary artery branches were not well visualized. 7. The inferior vena cava was not visualized. DOPPLER: It detects mild mitral regurgitation and mild to moderate tricuspid regurgitation. The calculated pulmonary artery systolic pressure varies between 40-50 mmHg. Assessment of the left ventricular diastolic function was limited. IMPRESSION: 1. Normal global left ventricular systolic function. 2. Mildly enlarged left atrium with mild mitral regurgitation. 3. Mild to moderate tricuspid regurgitation with moderate pulmonary hypertension and dilated right heart chambers. 4. The inferior vena cava was not visualized. 5. The study was technically limited due to poor acoustic window. 6. No vegetations noted in this transthoracic echocardiogram and if there is any concern about endocarditis, to consider a transesophageal echocardiogram. MTDD
[2019-05-16 10:00] VITALS: BP 120/63
[2019-05-16] MEDS ORDERED: NALL2INJ2 IV (11:57)
[2019-05-16 12:15] VITALS: BP 156/69
[2019-05-16] MEDS ORDERED: NAFCILLIN SOD 2 GM in D5W MINI-BAG PLUS 50 ML IV SCH (16:00)
--- NOTE | 2019-05-16 17:47 | DS.PDOC ---
Discharge Summary General Date of Admission May 12, 2019 at 19:07 Date of Discharge May 16, 2019 transferred to [facility] Reason for transfer: pericardial fluid collection 2cm x 8cm x 5cm Accepting physician: MICU Attending Dr. Briones, Educational Psychology Teacher: Dr. Spring Discharge Summary MEDICAL TECHNOLOGIST CLINICAL: INFECTIOUS DISEASE: DR. FLORES PAIN MANAGEMENT : WILLIAM RECIO DISCHARGE DIAGNOSES: PERICARDIAL FLUID COLLECTION 2CM X 8CM X 5 CM MSSA BACTEREMIA INFECTED PHLEBITIS WITH LEFT ARM CELLULITIS MSSA UTI ITP CHF COPD DISCHARGE MEDICATIONS: PLS SEE BELOW HISTORY OF PRESENTING ILLNESS: 83 yo male recently discharged on 05/08/19 with CHF, COPD exacerbation and ITP with chronic thrombocytopenia presented to ED with increasing neck pain and arm pain. He states his breathing is great since leaving the hospital. He slept in recliner chair and over past 1-2 days has had increasing neck stiffness, MUSTAFA , back pain and arm pain over areas of IV infiltration on left arm. He states no fever, no sweats, no diaphoresis. As for the neck and arm pain - he states it is located over occiptial and trapezius muscles to bilateral shoulders - constant, relief with laying still in recliner, worse when trying to look up or bend forward. Temporary relief with tylenol. States pain depends on activity. States right scapular pain that radiates to back of neck and into chests at same time as headache. States MUSTAFA only happens with neck/shoulder and back pain. no vision changes. no nausea, no vomiting, no SOB. Son in law states patient is weaker with walking and walking around with head "bend down", stiff gait. Patient states over past 1-2 days not as strong as usual. As for IV infiltration area to left arm, patient and daughter notice increased swelling and red to 2 past IV sites over last 2-3 days and pain with moving arm. getting worse. constant, dull achy. Pt was admitted for left arm cellulitis, and neck pain. HOSPITAL COURSE: left arm cellulitis / infected phlebitis with MSSA bacteremia -at area of prior IV infiltrated sites during recent hospitalization -s/p IV Vanc,Cefepime, culture pustule, elevate arm -blood cx: MSSA on IV nafcillin -ID consulted -CT chest: 2cm x 8cm.5cm pericardial fluid collection ECHo 05/14/19: no vegetations, no pericardial effusion. no tamponade -due to sbp <90 this morning, bp meds and torsemide held, and stat ECHO obtained to rule out tamponade. Staph aureus bacteremia-MSSA -s/p IV Vanc,Cefepime, culture pustule, elevate arm -blood cx: MSSA on IV nafcillin -ID consulted -CT chest: 2cm x 8cm.5cm pericardial fluid collection Staph aureus UTI -s/p iv vanco -on IV nafcillin Neck pain -due to (+) staph aureus bacteremia, concerning for possible disciitis, but unable to get MRI due to coronary stents. will r/o endocarditis with SUSANNAH if recommended by ID. -PRN muscle relaxant -pain mgt consulted -on gabapentin and zanaflex -no meningeal signs. to suspect meningitis -CT chest: pericardial fluid collection -CT cervical spine: no abscess. Afib - rate controlled continue same medications; held warfarin due to high INR. supratherapeutic INR - hold coumadin today. repeat INR in AM and adjust daily Recent hospitalization for COPD and CHF _ RESOLVED. continue same regimen Code status: FULL DVT prophylaxis: none needed as on warfarin with elevated INR Plan / VTE VTE Prophylaxis Ordered?: No DISCHARGE PHYSICAL EXAMINATION: Vitals: pls see below General Exam: Positive: Alert, Cooperative, Mild Distress Eye Exam: Positive: PERRLA, Conjunctiva & lids normal, EOMI ENT Exam: Positive: Atraumatic, Mucous membr. moist/pink, Pharynx Normal, Other ENT (tenderness along superior trapezius bilerally, occipital ridge bilaterally and SCM muscles bilaterally; ) negative kernig's negative brudzinski's. Neck Exam: Positive: +2 carotid pulse wo bruit, Other (no adenopathy; limited ROM in all dexter due to muscle spasms)able to touch chin to chest. Chest Exam: Positive: Clear to auscultation, Normal air movement; Negative: Rales, Rhonchi, Wheezing, Diminished Heart Exam: Positive: Irregular Rhythm (at 86 bpm) Telemetry: Positive: Atrial fibrillation (rate controlled) Abdomen Exam: Positive: Normal bowel sounds, Soft (NT ND no mass) Extremity Exam: Positive: Normal pulses; Negative: Clubbing, Cyanosis, Edema Skin Exam: Positive: Nl turgor and temperature, Other skin issue (right forearm with 2 pustular indurated lesions at site of priors IV while in hospital- surrounded by 1cm erythema. first area along elbow fold, second area to left forearm, hot to touch) Neuro Exam: Positive: Normal Speech, Strength at 5/5 X4 ext, Normal Tone, Sensation Intact, Cranial Nerves 3-12 NL, Other (family reports unsteady gait) Psych Exam: Positive: Mental status NL, Mood NL, Oriented x 3 EKG afib with RBBB LABORATORY DATA, IMAGING STUDIES, MICROBIOLOGY: PLS SEE BELOW TIME SPENT ON DISCHARGE: 45 MIN. Vital Signs/I&Os Vital Signs Date Time Temp Pulse Resp B/P (MAP) Pulse Ox O2 Delivery O2 Flow Rate FiO2 05/16/19 12:15 97.0 102 19 156/69 (98) 98 05/14/19 04:35 2.0 05/12/19 19:01 Room Air I&O- Last 24 Hours up to 6 AM 05/16/19 06:00 Intake Total 1670 ml Output Total 1460 ml Balance 210 ml Laboratory Data Labs 24H Laboratory Tests 2 05/16/19 06:59: Immature Granulocyte % (Auto) 0.8, White Blood Count 12.4H, Red Blood Count 3.94L, Hemoglobin 12.3L, Hematocrit 37.2L, Mean Corpuscular Volume 94.4, Mean Corpuscular Hemoglobin 31.2, Mean Corpuscular Hemoglobin Concent 33.1, Red Cell Distribution Width 16.9H, Platelet Count 118L, Neutrophils (%) (Auto) 79.6H, Lymphocytes (%) (Auto) 11.9L, Monocytes (%) (Auto) 6.8H, Eosinophils (%) (Auto) 0.7, Basophils (%) (Auto) 0.2, Neutrophils # (Auto) 9.9H, Lymphocytes # (Auto) 1.5, Monocytes # (Auto) 0.8, Eosinophils # (Auto) 0.1, Basophils # (Auto) 0.0, Nucleated Red Blood Cells % (auto) 0.0, Prothrombin Time 24.3H, Prothromb Time International Ratio 2.21, Anion Gap 5L, Glomerular Filtration Rate 58.7, Blood Urea Nitrogen 33H, Creatinine 1.25, Sodium Level 138, Potassium Level 3.6, Chloride Level 103, Carbon Dioxide Level 30, Calcium Level 8.7L CBC/BMP Laboratory Tests 05/16/19 06:59 Red Blood Count 3.94 L, Mean Corpuscular Volume 94.4, Mean Corpuscular Hemoglobin 31.2, Mean Corpuscular Hemoglobin Concent 33.1, Red Cell Distribution Width 16.9 H, Neutrophils (%) (Auto) 79.6 H, Lymphocytes (%) (Auto) 11.9 L, Monocytes (%) (Auto) 6.8 H, Eosinophils (%) (Auto) 0.7, Basophils (%) (Auto) 0.2, Neutrophils # (Auto) 9.9 H, Lymphocytes # (Auto) 1.5, Monocytes # (Auto) 0.8, Eosinophils # (Auto) 0.1, Basophils # (Auto) 0.0, Calcium Level 8.7 L Microbiology Microbiology 05/13/19 Blood Culture - Preliminary, Resulted No Growth after 72 hours. All specime... 05/13/19 Blood Culture - Preliminary, Resulted No Growth after 72 hours. All specime... 05/12/19 Blood Culture - Final, Complete Staphylococcus Aureus 05/12/19 Blood Culture - Final, Complete Staphylococcus Aureus 05/12/19 Urine Culture - Final, Complete Staphylococcus Aureus 05/15/19 Gram Stain - Final, Resulted 05/15/19 Wound Culture - Preliminary, Resulted Staphylococcus Aureus Discharge Medications Scheduled Cyclosporine (Restasis) 0.05 % Emu, 1 DROP OU BID, (Reported) Esomeprazole Magnesium (Nexium) 40 Mg Cap, 40 MG PO DAILY, (Reported) Fluticasone Propion/Salmeterol (Advair Hfa 115-21 Mcg Inhaler) 1 Aer Aer, 2 PUFF INH BID, (Reported) Gabapentin (Gabapentin) 600 Mg Tab, 600 MG PO DAILY, (Reported) Gabapentin (Gabapentin) 600 Mg Tab, 1,200 MG PO QHS, (Reported) Guaifenesin (Mucinex) 600 Mg Tab.er.12h, 600 MG PO BID, (Reported) STARTED 05/09/19 TO TAKE X 7 DAYS Nafcillin in Dextrose,Iso-Osm (Nafcillin 2 gm/ 100 ml Inj) 2 Gm/100 Ml Froz.piggy, 1 INJ IV Q6H Prednisone (Prednisone) 10 Mg Tablet, 10 MG PO TAPER, (Reported) STARTED ON 05/09/19 TO TAKE 4 TABS X 3 DAYS THEN 3 TABS X 3 DAYS THEN 2 TABS X 3 DAYS THEN 1 TAB X 3 DAYS THEN STOP Rosuvastatin Calcium (Crestor) 20 Mg Tablet, 20 MG PO QHS, (Reported) Spironolactone (Spironolactone) 25 Mg Tablet, 25 MG PO BID, (Reported) Scheduled PRN Acetaminophen (Acetaminophen) 500 Mg Tablet, 1,000 MG PO Q6H PRN for PAIN, (Reported) Albuterol Sulf (Albuterol Sulfate) 2.5 Mg/3 Ml Vial.neb, 1 VIAL NEB Q4H PRN for wheezing, (Reported) Albuterol Sulfate (Proair Hfa) 8.5 Gm Hfa.aer.ad, 2 PUFF INH Q4H PRN for SHORTNESS OF BREATH, (Reported) Nitroglycerin (Nitrostat) 0.4 Mg Subl, 0.4 MG SL NITRO PRN for CHEST PAIN, (Reported) Allergies Coded Allergies: No Known Allergies (Verified , 07/15/17) ANGELO BLOOM MD May 16, 2019 17:44
--- NOTE | 2019-05-16 18:12 | ECHO ---
DATE OF PROCEDURE: 05/16/2019 DATE OF : 1935 AGE: 83 REFERRING PROVIDER: Dr. Yuridia Braswell PATIENT LOCATION: Room 3201 REASON FOR THE ECHOCARDIOGRAM: Hypotension, pericardial effusion. 2D MEASUREMENTS: IVS: 1.0 cm LV: 4.9 cm LVPW: 1.1 cm LA: 4.4 cm Aorta: 3.2 cm DOPPLER MEASUREMENTS: Peak velocity across the aortic valve: 1.6 m/s Peak velocity across the LVOT: 1.0 m/s Peak gradient across the aortic valve: 10 mmHg. Maximum tricuspid valve velocity: 2.7 m/s 2D COMMENTS: 1. Technically limited study due to poor acoustic window. 2. Normal left ventricular size, wall thickness, and global left ventricular systolic function. The estimated left ventricular systolic ejection fraction is 60%. 3. Mildly enlarged left atrium. The right atrium and the right ventricle appeared to be mildly enlarged in limited views. 4. Normal aortic root. 5. Trace pericardial effusion noted posteriorly at the base of the left ventricle, no evidence of cardiac tamponade. 6. Mildly calcified aortic valve with normal leaflet excursion. Mildly calcified mitral annulus with normal anterior mitral valve leaflet motion. Normal tricuspid valve and pulmonic valve. The proximal pulmonary artery branches were not well visualized. 7. The inferior vena cava appeared to be enlarged, central venous pressure might be elevated. DOPPLER: It detects mild mitral regurgitation, mild tricuspid regurgitation. The calculated pulmonary artery systolic pressure varied between 30-40 mmHg. Assessment of the left ventricular diastolic function was limited in view of the underlying arrhythmias. IMPRESSION: 1. Technically limited study due to poor acoustic window. 2. Normal global left ventricular systolic function. Assessment of the left ventricular diastolic function is limited in view of the underlying arrhythmias. 3. Mildly dilated left atrium with mild mitral regurgitation and mitral annulus calcification. 4. Aortic valve sclerosis without any significant stenosis or aortic regurgitation. 5. Mild tricuspid regurgitation with mild pulmonary hypertension. The right heart chambers appeared to be enlarged. 6. The patient was noted during the test to be tachycardic at times with a heart rate between 120 and 130 beats per minute. 7. No remarkable changes from the most recent echocardiogram but tachycardia. MTDD
--- NOTE | 2019-05-16 18:55 | IPN ---
DATE: 05/16/2019 Tor is hypotensive this morning, a little confused according to nurses, but when I saw him, he was doing well. This morning at 6:00 a.m., his blood pressure was 84/60, currently 156/69. He describes the pain in his neck as when he stands up after about five minutes, he starts having severe neck pain, not associated with neck stiffness. The pain radiates to his right shoulder and also his left arm. He has shooting pains. He denies any fever or chills. No nausea, vomiting or diarrhea. PHYSICAL EXAMINATION: VITAL SIGNS: Temperature is 97, pulse 102, respirations 19, blood pressure 156/69, oxygen saturation 98% on room air. HEART: Normal S1, S2, tachycardiac. LUNGS: Expiratory rhonchi bilaterally. ABDOMEN: Soft, nontender. No hepatosplenomegaly. NECK: Supple. No jugular venous distention (JVD). No stiffness. Normal range of motion, flexion, extension and rotation. MUSCULOSKELETAL: Shoulders: Normal range of motion. He has mild right-sided trapezius tenderness. Motor strength on the left hand, weak grasp. EXTREMITIES: Trace edema bilaterally with hyperpigmented venous stasis changes. SKIN: Left wrist and antecubital fossae, he has two pustules from previous IV sites. LABORATORY DATA: White count 12.4, hemoglobin 12.3, hematocrit 37.2, platelets 118. ESR 67. Sodium 138, potassium 3.6, chloride 103, bicarbonate 30, BUN 33, creatinine 1.25, glucose 107, calcium 8.7. IMPRESSION: 1. Methicillin-sensitive Staphylococcus aureus (MSSA) bacteremia from septic phlebitis of his peripheral IVs, on IV nafcillin 2 grams with six hours which will be increased to every eight hours. 2. Abnormal pericardial fluid collection seen only on chest CT. Cardiology has been consulted. Dr. Patterson read the echocardiogram. He was not able to see the collection on the echocardiogram. The patient will need transesophageal echocardiogram to better delineate this collection and to rule out endocarditis. 3. Neck pain with a negative CT neck to explain his pain. I suspect this is a referred pain as he describes it as mostly when he stands up and is in a sitting or standing position for five minutes. He also has radiation to his right shoulder and left arm, possibly from this collection. PLAN: Continue with IV nafcillin 2 grams every four hours, transesophageal echocardiogram. If neck pain persists, consider MRI of neck and thoracic spine. Transferred to [place] to the care of his repairer handtools, Dr. Spring.
[2019-08-13] MEDS ORDERED: METO1TAB7 PO (15:46)
[2019-08-13] MEDS ORDERED: FURO40TA2 PO (15:46)
[2019-08-13] MEDS ORDERED: POTA10CA32 PO (15:46)
[2019-08-13] MEDS ORDERED: WARF-58 PO (15:46)
[2019-08-13] MEDS ORDERED: FLOR250C PO (15:46)
== END 2019-05-16 13:50 | disposition short-term general hospital (02) | DRG 868 ==
LOC: M ED 13:55 → M ED INP 19:07 → M MS5PR 23:07 → M ICU 05-16 11:57
PROVIDERS: ADMIT Family Medicine; ATTEND General Practice
DX: T80.29XA Infection following other infusion, transfusion and therapeutic injection, initial encounter (principal); D69.3 Immune thrombocytopenic purpura; I50.32 Chronic diastolic (congestive) heart failure; N39.0 Urinary tract infection, site not specified; L03.114 Cellulitis of left upper limb; R78.81 Bacteremia; I31.3 Pericardial effusion (noninflammatory); J44.9 Chronic obstructive pulmonary disease, unspecified; M43.6 Torticollis; D47.2 Monoclonal gammopathy; I48.91 Unspecified atrial fibrillation; K21.9 Gastro-esophageal reflux disease without esophagitis; I11.0 Hypertensive heart disease with heart failure; M54.2 Cervicalgia; B95.61 Methicillin susceptible Staphylococcus aureus infection as the cause of diseases classified elsewhere; E78.5 Hyperlipidemia, unspecified; M19.90 Unspecified osteoarthritis, unspecified site; N40.0 Benign prostatic hyperplasia without lower urinary tract symptoms; Z90.5 Acquired absence of kidney; Z90.49 Acquired absence of other specified parts of digestive tract; Z85.828 Personal history of other malignant neoplasm of skin; Z95.5 Presence of coronary angioplasty implant and graft; Z79.52 Long term (current) use of systemic steroids; Z79.01 Long term (current) use of anticoagulants; Z79.899 Other long term (current) drug therapy; Z85.46 Personal history of malignant neoplasm of prostate; Z92.3 Personal history of irradiation; Z87.891 Personal history of nicotine dependence; Y83.1 Surgical operation with implant of artificial internal device as the cause of abnormal reaction of the patient, or of later complication, without mention of misadventure at the time of the procedure

== ENCOUNTER 2019-05-26 20:47 | Emergency (ER) | payer MEDICARE ==
[~2019-05-26] VITALS: Ht 172.7 cm; Wt 97.7 kg
[~2019-05-26 20:47] MED LIST changes: +AZIT500T2 PO; -AZIT500T5 PO; -BENZ200C70 PO; -FLOR250C PO; -POTA10CA32 PO
--- NOTE | 2019-05-26 21:54 | REPVR ---
EXAM: CT Head Without Contrast EXAM DATE/TIME: 05/26/2019 9:40 PM CLINICAL HISTORY: 83 years old, male; Injury or trauma; Fall; Initial encounter; Blunt trauma (contusions or hematomas) TECHNIQUE: Imaging protocol: Computed tomography images of the head without contrast. Radiation optimization: All CT scans at this facility use at least one of these dose optimization techniques: automated exposure control; mA and/or kV adjustment per patient size (includes targeted exams where dose is matched to clinical indication); or iterative reconstruction. COMPARISON: CT BRAIN LAB SINUSES 04/17/2016 5:14 PM FINDINGS: Brain: Patchy areas of hypoattenuation in the periventricular and subcortical white matter, consistent with chronic small vessel ischemic disease. No CT evidence of acute intracranial hemorrhage or acute territorial infarction. No significant mass effect or midline shift. Basal cisterns patent. Ventricles: Prominence of the cortical sulci, cisterns and ventricular system, consistent with cerebral and cerebellar volume loss. Bones/joints: No acute osseous abnormality. Sinuses: Grossly unremarkable. Mastoid air cells: Grossly unremarkable. Soft tissues: Grossly unremarkable. Vasculature: Calcific atherosclerotic disease in the cavernous internal carotid arteries. IMPRESSION: 1. No CT evidence of acute intracranial pathology. 2. Additional findings, as above. Electronically signed by: Tereso Hoff On 05/26/2019 21:54:20 PM
--- NOTE | 2019-05-26 21:58 | REPVR ---
EXAM: CT Cervical Spine Without Contrast EXAM DATE/TIME: 05/26/2019 9:40 PM CLINICAL HISTORY: 83 years old, male; Injury or trauma; Fall; Initial encounter; Blunt trauma TECHNIQUE: Imaging protocol: Computed tomography images of the cervical spine without contrast. Coronal and sagittal reformatted images were created and reviewed. Radiation optimization: All CT scans at this facility use at least one of these dose optimization techniques: automated exposure control; mA and/or kV adjustment per patient size (includes targeted exams where dose is matched to clinical indication); or iterative reconstruction. COMPARISON: CT Spine,cervical w/contrast 05/14/2019 6:58 PM FINDINGS: Vertebrae: Normal cervical lordosis. Mild anterolisthesis of C3 on C4 and C4 on C5. Mild retrolisthesis of C5 on C6. Alignment otherwise anatomic. Minimal levoscoliosis. No CT evidence of acute fracture, dislocation or subluxation. Vertebral body heights maintained. Discs/Spinal canal/Neural foramina: Mild to moderate multilevel spondylosis. No significant spinal canal or neural foraminal stenosis. Soft tissues: Grossly unremarkable. Lungs: Grossly unremarkable. IMPRESSION: 1. No CT evidence of acute cervical spine traumatic injury. 2. Additional findings, as above. Electronically signed by: Tereso Hoff On 05/26/2019 21:58:14 PM
[2019-05-26 22:15] VITALS: BP 136/76
== END 2019-05-26 22:33 | disposition home or self-care (01) ==
LOC: M ED 20:47
DX: S00.03XA Contusion of scalp, initial encounter (principal); W18.39XA Other fall on same level, initial encounter; Y92.018 Other place in single-family (private) house as the place of occurrence of the external cause; R78.81 Bacteremia; I48.0 Paroxysmal atrial fibrillation; I10 Essential (primary) hypertension; Z79.899 Other long term (current) drug therapy; Z79.01 Long term (current) use of anticoagulants

== ENCOUNTER → 2019-05-26 | Outpatient (REF) | payer MEDICARE ==
[~2019-05-26] MED LIST changes: +ACET-683 PO; +BENZ200C70 PO; +FLOR250C PO; +NALL2INJ2 IV; +POTA10CA32 PO
[2019-05-26 18:14] LABS: BASO % 0.4 % (0.0-1.0); EOS # 0.2 10^3/uL (0.0-0.50); EOS % 2.3 % (0.0-3.0); HEMOGLOBIN 12.2 g/dl (13.5-17.5); LYMPH # 1.3 10^3/uL (1.5-4.5); LYMPH % 18.5 % (24.0-44.0); MEAN CORPUSCULAR HEMOGLOBIN 31.1 pg (27.0-33.0); MEAN CORPUSCULAR HGB CONC 32.1 g/dl (32.0-36.5); MEAN CORPUSCULAR VOLUME 96.9 fl (80.0-96.0); MONO # 0.4 10^3/uL (0.0-0.8); MONO % 6.2 % (0.0-5.0); NEUTROPHILS # 5.1 10^3/uL (1.8-7.7); NEUTROPHILS % 72.3 % (36.0-66.0); PLATELET COUNT, AUTOMATED 157 10^3/uL (150-450); RED BLOOD COUNT 3.92 10^6/uL (4.30-6.10); WHITE BLOOD COUNT 7.1 10^3/uL (4.0-10.0)
[2019-05-26 18:30] LABS: ALBUMIN 1.9 GM/DL (3.2-5.2); ALT/SGPT 26 U/L (12-78); BILIRUBIN,TOTAL 0.2 MG/DL (0.2-1.0); BLOOD UREA NITROGEN 19 MG/DL (7-18); C REACTIVE PROTEIN QUANTITATIV 9.95 MG/DL (0.00-0.30); CALCIUM LEVEL 8.7 MG/DL (8.8-10.2); CARBON DIOXIDE LEVEL 30 MEQ/L (21-32); CHLORIDE LEVEL 99 MEQ/L (98-107); CREATININE FOR GFR 1.03 MG/DL (0.70-1.30); GLOMERULAR FILTRATION RATE > 60.0 (>35); GLUCOSE, FASTING 135 MG/DL (70-100); POTASSIUM SERUM 3.7 MEQ/L (3.5-5.1); SODIUM LEVEL 136 MEQ/L (136-145); TOTAL PROTEIN 7.8 GM/DL (6.4-8.2)
[2019-05-26 19:03] LABS: ERYTHROCYTE SEDIMENTATION RATE 106 mm/hr (0-20)
== END ==
LOC: M SHH 17:03
PROVIDERS: ATTEND Internal Medicine Infectious Disease
DX: R78.81 Bacteremia (principal)

== ENCOUNTER → 2019-05-26 | Outpatient (REF) | payer MEDICARE ==
[2019-05-26 18:35] LABS: INR 3.63; PROTHROMBIN TIME 36.2 SECONDS (11.8-14.0)
== END ==
LOC: M SHH 17:06
PROVIDERS: ATTEND Internal Medicine
DX: I48.0 Paroxysmal atrial fibrillation (principal); Z79.01 Long term (current) use of anticoagulants

== ENCOUNTER → 2019-06-03 | Outpatient (REF) | payer MEDICARE ==
[2019-06-03 15:22] LABS: PROTHROMBIN TIME 51.5 SECONDS (11.8-14.0)
[2019-06-03 15:29] LABS: INR 5.64
== END ==
LOC: M SHH 14:47
PROVIDERS: ATTEND Internal Medicine
DX: I48.0 Paroxysmal atrial fibrillation (principal); Z79.01 Long term (current) use of anticoagulants; N18.3 Chronic kidney disease, stage 3 (moderate)

== ENCOUNTER → 2019-06-03 | Outpatient (REF) | payer MEDICARE ==
[2019-06-03 15:10] LABS: BASO % 0.4 % (0.0-1.0); EOS # 0.2 10^3/uL (0.0-0.50); EOS % 3.2 % (0.0-3.0); HEMATOCRIT 33.9 % (42.0-52.0); HEMOGLOBIN 10.8 g/dl (13.5-17.5); LYMPH # 1.3 10^3/uL (1.5-4.5); LYMPH % 25.7 % (24.0-44.0); MEAN CORPUSCULAR HEMOGLOBIN 29.9 pg (27.0-33.0); MEAN CORPUSCULAR HGB CONC 31.9 g/dl (32.0-36.5); MEAN CORPUSCULAR VOLUME 93.9 fl (80.0-96.0); MONO # 0.4 10^3/uL (0.0-0.8); MONO % 7.5 % (0.0-5.0); NEUTROPHILS # 3.2 10^3/uL (1.8-7.7); PLATELET COUNT, AUTOMATED 147 10^3/uL (150-450); RED BLOOD COUNT 3.61 10^6/uL (4.30-6.10); WHITE BLOOD COUNT 5.1 10^3/uL (4.0-10.0)
[2019-06-03 15:37] LABS: ALBUMIN 1.7 GM/DL (3.2-5.2); ALT/SGPT 27 U/L (12-78); BILIRUBIN,TOTAL 0.2 MG/DL (0.2-1.0); BLOOD UREA NITROGEN 13 MG/DL (7-18); C REACTIVE PROTEIN QUANTITATIV 3.98 MG/DL (0.00-0.30); CALCIUM LEVEL 7.9 MG/DL (8.8-10.2); CARBON DIOXIDE LEVEL 30 MEQ/L (21-32); CHLORIDE LEVEL 100 MEQ/L (98-107); CREATININE FOR GFR 1.01 MG/DL (0.70-1.30); GLOMERULAR FILTRATION RATE > 60.0 (>35); GLUCOSE, FASTING 160 MG/DL (70-100); POTASSIUM SERUM 2.8 MEQ/L (3.5-5.1); SODIUM LEVEL 137 MEQ/L (136-145); TOTAL PROTEIN 7.3 GM/DL (6.4-8.2)
[2019-06-03 16:21] LABS: ERYTHROCYTE SEDIMENTATION RATE 115 mm/hr (0-20)
== END ==
LOC: M SHH 14:42
PROVIDERS: ATTEND Internal Medicine Infectious Disease
DX: R78.81 Bacteremia (principal); I48.0 Paroxysmal atrial fibrillation; N18.3 Chronic kidney disease, stage 3 (moderate); Z79.01 Long term (current) use of anticoagulants

== ENCOUNTER → 2019-06-04 | Outpatient (REF) | payer MEDICARE ==
[2019-06-04 12:36] LABS: BLOOD UREA NITROGEN 18 MG/DL (7-18); CALCIUM LEVEL 8.7 MG/DL (8.8-10.2); CARBON DIOXIDE LEVEL 32 MEQ/L (21-32); CHLORIDE LEVEL 99 MEQ/L (98-107); CREATININE FOR GFR 0.98 MG/DL (0.70-1.30); GLOMERULAR FILTRATION RATE > 60.0 (>35); GLUCOSE, FASTING 89 MG/DL (70-100); POTASSIUM SERUM 3.6 MEQ/L (3.5-5.1); SODIUM LEVEL 137 MEQ/L (136-145)
== END ==
LOC: M SHH 11:08
PROVIDERS: ATTEND Internal Medicine
DX: E87.6 Hypokalemia (principal)

== ENCOUNTER → 2019-06-06 | Outpatient (REF) | payer MEDICARE ==
[2019-06-06 14:02] LABS: HEMATOCRIT 34.6 % (42.0-52.0); MEAN CORPUSCULAR HEMOGLOBIN 30.6 pg (27.0-33.0); MEAN CORPUSCULAR HGB CONC 31.8 g/dl (32.0-36.5); MEAN CORPUSCULAR VOLUME 96.1 fl (80.0-96.0); PLATELET COUNT, AUTOMATED 144 10^3/uL (150-450); WHITE BLOOD COUNT 5.9 10^3/uL (4.0-10.0)
[2019-06-06 14:05] LABS: BLOOD UREA NITROGEN 16 MG/DL (7-18); CARBON DIOXIDE LEVEL 31 MEQ/L (21-32); CHLORIDE LEVEL 102 MEQ/L (98-107); CREATININE FOR GFR 0.92 MG/DL (0.70-1.30); GLOMERULAR FILTRATION RATE > 60.0 (>35); GLUCOSE, FASTING 96 MG/DL (70-100); POTASSIUM SERUM 3.6 MEQ/L (3.5-5.1); SODIUM LEVEL 140 MEQ/L (136-145)
[2019-06-06 14:13] LABS: INR 1.67; PROTHROMBIN TIME 19.4 SECONDS (11.8-14.0)
== END ==
LOC: M SHH 13:48 → M LAB REF 13:48
PROVIDERS: ATTEND Nurse Practitioner Adult Health
DX: Z51.81 Encounter for therapeutic drug level monitoring (principal); Z79.01 Long term (current) use of anticoagulants; I48.0 Paroxysmal atrial fibrillation; D64.9 Anemia, unspecified

== ENCOUNTER → 2019-06-10 | Outpatient (REF) | payer MEDICARE ==
[2019-06-10 14:20] LABS: INR 3.99
== END ==
LOC: M SHH 12:09
PROVIDERS: ATTEND Internal Medicine
DX: I48.0 Paroxysmal atrial fibrillation (principal); Z79.01 Long term (current) use of anticoagulants
CPT/HCPCS: 85610; G0463

== ENCOUNTER → 2019-06-11 | Outpatient (REF) | payer MEDICARE ==
[2019-06-11 10:47] LABS: BASO # 0.1 10^3/uL (0.0-0.2); BASO % 0.8 % (0.0-1.0); EOS # 0.2 10^3/uL (0.0-0.50); EOS % 2.4 % (0.0-3.0); HEMATOCRIT 36.2 % (42.0-52.0); HEMOGLOBIN 11.5 g/dl (13.5-17.5); LYMPH # 1.6 10^3/uL (1.5-4.5); LYMPH % 26.1 % (24.0-44.0); MEAN CORPUSCULAR HEMOGLOBIN 30.5 pg (27.0-33.0); MEAN CORPUSCULAR HGB CONC 31.8 g/dl (32.0-36.5); MONO # 0.6 10^3/uL (0.0-0.8); NEUTROPHILS # 3.8 10^3/uL (1.8-7.7); NEUTROPHILS % 61.4 % (36.0-66.0); PLATELET COUNT, AUTOMATED 148 10^3/uL (150-450); RED BLOOD COUNT 3.77 10^6/uL (4.30-6.10); WHITE BLOOD COUNT 6.2 10^3/uL (4.0-10.0)
[2019-06-11 10:50] LABS: ALT/SGPT 35 U/L (12-78); BILIRUBIN,TOTAL 0.1 MG/DL (0.2-1.0); BLOOD UREA NITROGEN 21 MG/DL (7-18); C REACTIVE PROTEIN QUANTITATIV 3.46 MG/DL (0.00-0.30); CALCIUM LEVEL 9.2 MG/DL (8.8-10.2); CARBON DIOXIDE LEVEL 27 MEQ/L (21-32); CHLORIDE LEVEL 104 MEQ/L (98-107); CREATININE FOR GFR 0.88 MG/DL (0.70-1.30); GLOMERULAR FILTRATION RATE > 60.0 (>35); GLUCOSE, FASTING 89 MG/DL (70-100); POTASSIUM SERUM 4.3 MEQ/L (3.5-5.1); SODIUM LEVEL 136 MEQ/L (136-145); TOTAL PROTEIN 7.8 GM/DL (6.4-8.2)
[2019-06-11 11:23] LABS: ERYTHROCYTE SEDIMENTATION RATE 106 mm/hr (0-20)
== END ==
LOC: M SHH 10:05
PROVIDERS: ATTEND Internal Medicine Infectious Disease
DX: R78.81 Bacteremia (principal)

== ENCOUNTER → 2019-06-13 | Outpatient (REF) | payer MEDICARE ==
[2019-06-13 14:19] LABS: INR 2.02; PROTHROMBIN TIME 22.6 SECONDS (11.8-14.0)
== END ==
LOC: M SHH 13:29
PROVIDERS: ATTEND Nurse Practitioner Adult Health
DX: I48.0 Paroxysmal atrial fibrillation (principal)

== ENCOUNTER → 2019-06-17 | Outpatient (REF) | payer MEDICARE ==
[2019-06-17 12:32] LABS: HEMATOCRIT 35.7 % (42.0-52.0); HEMOGLOBIN 11.3 g/dl (13.5-17.5); MEAN CORPUSCULAR HGB CONC 31.7 g/dl (32.0-36.5); MEAN CORPUSCULAR VOLUME 97.8 fl (80.0-96.0); PLATELET COUNT, AUTOMATED 128 10^3/uL (150-450); RED BLOOD COUNT 3.65 10^6/uL (4.30-6.10)
[2019-06-17 13:07] LABS: ALT/SGPT 28 U/L (12-78); BILIRUBIN,TOTAL 0.2 MG/DL (0.2-1.0); BLOOD UREA NITROGEN 24 MG/DL (7-18); CALCIUM LEVEL 9.7 MG/DL (8.8-10.2); CARBON DIOXIDE LEVEL 26 MEQ/L (21-32); CHLORIDE LEVEL 102 MEQ/L (98-107); CREATININE FOR GFR 1.16 MG/DL (0.70-1.30); GLOMERULAR FILTRATION RATE > 60.0 (>35); GLUCOSE, FASTING 123 MG/DL (70-100); POTASSIUM SERUM 4.6 MEQ/L (3.5-5.1); SODIUM LEVEL 137 MEQ/L (136-145); TOTAL PROTEIN 7.6 GM/DL (6.4-8.2)
== END ==
LOC: M SHH 11:52
PROVIDERS: ATTEND Hospitalist
DX: I48.0 Paroxysmal atrial fibrillation (principal); Z79.01 Long term (current) use of anticoagulants

== ENCOUNTER → 2019-06-17 | Outpatient (REF) | payer MEDICARE ==
[2019-06-17 12:48] LABS: INR 1.77; PROTHROMBIN TIME 20.4 SECONDS (11.8-14.0)
== END ==
LOC: M SHH 11:56
PROVIDERS: ATTEND Internal Medicine
DX: I48.0 Paroxysmal atrial fibrillation (principal); Z79.01 Long term (current) use of anticoagulants

== ENCOUNTER → 2019-07-08 | Outpatient (REF) | payer MEDICARE ==
[2019-07-08 17:41] LABS: INR 1.39; PROTHROMBIN TIME 16.8 SECONDS (11.8-14.0)
== END ==
LOC: M SHH 15:24
PROVIDERS: ATTEND Internal Medicine
DX: I48.0 Paroxysmal atrial fibrillation (principal); Z79.01 Long term (current) use of anticoagulants

== ENCOUNTER → 2019-07-08 | Outpatient (REF) | payer MEDICARE ==
[2019-07-08 17:16] LABS: BASO % 0.7 % (0.0-1.0); EOS # 0.2 10^3/uL (0.0-0.5); EOS % 3.2 % (0.0-3.0); HEMATOCRIT 37.2 % (42.0-52.0); HEMOGLOBIN 11.9 g/dl (13.5-17.5); LYMPH # 1.2 10^3/uL (1.5-5.0); LYMPH % 21.2 % (24.0-44.0); MEAN CORPUSCULAR VOLUME 96.9 fl (80.0-96.0); MONO # 0.5 10^3/uL (0.0-0.8); NEUTROPHILS # 3.9 10^3/uL (1.5-8.5); NEUTROPHILS % 66.7 % (36.0-66.0); PLATELET COUNT, AUTOMATED 109 10^3/uL (150-450); RED BLOOD COUNT 3.84 10^6/uL (4.30-6.10); WHITE BLOOD COUNT 5.9 10^3/uL (4.0-10.0)
[2019-07-08 17:25] LABS: ALBUMIN 2.5 GM/DL (3.2-5.2); ALT/SGPT 23 U/L (12-78); BILIRUBIN,TOTAL 0.3 MG/DL (0.2-1.0); BLOOD UREA NITROGEN 17 MG/DL (7-18); C REACTIVE PROTEIN QUANTITATIV 0.76 MG/DL (0.00-0.30); CALCIUM LEVEL 9.7 MG/DL (8.8-10.2); CARBON DIOXIDE LEVEL 28 MEQ/L (21-32); CHLORIDE LEVEL 105 MEQ/L (98-107); CREATININE FOR GFR 0.87 MG/DL (0.70-1.30); GLOMERULAR FILTRATION RATE > 60.0 (>35); GLUCOSE, FASTING 75 MG/DL (70-100); POTASSIUM SERUM 3.8 MEQ/L (3.5-5.1); SODIUM LEVEL 139 MEQ/L (136-145)
[2019-07-08 18:55] LABS: ERYTHROCYTE SEDIMENTATION RATE 105 mm/hr (0-20)
== END ==
LOC: M SHH 15:30
PROVIDERS: ATTEND Internal Medicine Infectious Disease
DX: R78.81 Bacteremia (principal); I48.0 Paroxysmal atrial fibrillation; Z79.01 Long term (current) use of anticoagulants

== ENCOUNTER → 2019-07-15 | Outpatient (REF) | payer MEDICARE ==
[2019-07-15 13:27] LABS: INR 1.6; PROTHROMBIN TIME 18.8 SECONDS (11.8-14.0)
[2019-07-15 13:54] LABS: FOLLICLE STIMULATING HORMONE 24.8 mIU/mL (1.4-18.1); LUTEINIZING HORMONE 24.2 mIU/mL (3.1-34.6)
== END ==
LOC: M SHH 12:24
PROVIDERS: ATTEND Internal Medicine
DX: Z79.01 Long term (current) use of anticoagulants (principal); I48.0 Paroxysmal atrial fibrillation

== ENCOUNTER → 2019-07-22 | Outpatient (CLI) | payer MEDICARE ==
[~2019-07-22] MED LIST changes: -AZIT500T2 PO; +AZIT500T5 PO; +BENZ200C70 PO; +FLOR250C PO; +POTA10CA32 PO
[2019-07-22 19:42] LABS: BASO # 0.1 10^3/uL (0.0-0.2); BASO % 0.8 % (0.0-1.0); EOS # 0.2 10^3/uL (0.0-0.5); EOS % 4.1 % (0.0-3.0); HEMATOCRIT 36.4 % (42.0-52.0); HEMOGLOBIN 11.3 g/dl (13.5-17.5); LYMPH # 1.7 10^3/uL (1.5-5.0); LYMPH % 28.9 % (24.0-44.0); MEAN CORPUSCULAR HEMOGLOBIN 30.1 pg (27.0-33.0); MEAN CORPUSCULAR VOLUME 97.1 fl (80.0-96.0); MONO # 0.6 10^3/uL (0.0-0.8); MONO % 9.3 % (0.0-5.0); NEUTROPHILS # 3.4 10^3/uL (1.5-8.5); NEUTROPHILS % 56.7 % (36.0-66.0); PLATELET COUNT, AUTOMATED 126 10^3/uL (150-450); RED BLOOD COUNT 3.75 10^6/uL (4.30-6.10); WHITE BLOOD COUNT 5.9 10^3/uL (4.0-10.0)
[2019-07-22 20:02] LABS: ALBUMIN 2.7 GM/DL (3.2-5.2); ALT/SGPT 16 U/L (12-78); BILIRUBIN,TOTAL 0.4 MG/DL (0.2-1.0); BLOOD UREA NITROGEN 29 MG/DL (7-18); C REACTIVE PROTEIN QUANTITATIV 0.52 MG/DL (0.00-0.30); CALCIUM LEVEL 9.6 MG/DL (8.8-10.2); CARBON DIOXIDE LEVEL 25 MEQ/L (21-32); CHLORIDE LEVEL 108 MEQ/L (98-107); GLOMERULAR FILTRATION RATE > 60.0 (>35); GLUCOSE, FASTING 89 MG/DL (70-100); POTASSIUM SERUM 4.4 MEQ/L (3.5-5.1); SODIUM LEVEL 140 MEQ/L (136-145); TOTAL PROTEIN 7.8 GM/DL (6.4-8.2)
[2019-07-22 20:10] LABS: ERYTHROCYTE SEDIMENTATION RATE 103 mm/hr (0-20)
== END ==
LOC: M LAB 17:44
PROVIDERS: ATTEND Internal Medicine Infectious Disease
DX: R78.81 Bacteremia (principal)
CPT/HCPCS: 36415; 80053; 85025; 85652; 86140; 87040; G0463

== ENCOUNTER → 2019-07-22 | Outpatient (REF) | payer MEDICARE ==
[~2019-07-22] MED LIST changes: +AZIT500T2 PO; -AZIT500T5 PO; -BENZ200C70 PO; -FLOR250C PO; -POTA10CA32 PO
== END ==
LOC: M SFHCPLAZ 14:21
PROVIDERS: ATTEND Internal Medicine Infectious Disease
DX: R78.81 Bacteremia (principal); Z53.8 Procedure and treatment not carried out for other reasons

== ENCOUNTER 2019-11-07 21:04 | Inpatient (IN) | payer MEDICARE ==
[~2019-11-07] VITALS: Ht 172.7 cm; Wt 96.4 kg
[~2019-11-07 21:04] MED LIST changes: -AZIT500T2 PO; +AZIT500T5 PO; +FLOR250C PO; +POTA10CA32 PO; +ROSUVASTATIN 10 MG TAB (CRESTOR) PO SCH
--- NOTE | 2019-11-07 22:32 | REPVR ---
PROCEDURE INFORMATION: Exam: XR Chest, 2 Views Exam date and time: 11/07/2019 9:58 PM Age: 84 years old Clinical indication: Shortness of breath; Additional info: SOB leg edema eval for chf TECHNIQUE: Imaging protocol: XR of the chest Views: 2 views. COMPARISON: CR Chest, 2 view PA, Lat 05/15/2019 11:28 AM FINDINGS: Lungs: Non-specific interstitial lung changes with some subpleural ground-glass opacities. Pleural space: Unremarkable. No pleural effusion. No pneumothorax. Heart/Mediastinum: Prior sternotomy and CABG. Cardiomegaly. Bones/joints: Skeletal degenerative changes are noted. IMPRESSION: Ground-glass opacities and interstitial lung changes may be due to asymmetric edema or developing pneumonia. Electronically signed by: Yves Diane On 11/07/2019 22:32:34 PM
[2019-11-07 22:37] LABS: BASO % 0.4 % (0.0-1.0); EOS # 0.2 10^3/uL (0.0-0.5); EOS % 4.8 % (0.0-3.0); HEMATOCRIT 32.6 % (42.0-52.0); HEMOGLOBIN 9.9 g/dl (13.5-17.5); LYMPH % 20.9 % (24.0-44.0); MEAN CORPUSCULAR HEMOGLOBIN 30.5 pg (27.0-33.0); MEAN CORPUSCULAR HGB CONC 30.4 g/dl (32.0-36.5); MEAN CORPUSCULAR VOLUME 100.3 fl (80.0-96.0); MONO # 0.6 10^3/uL (0.0-0.8); MONO % 12.7 % (0.0-5.0); RED BLOOD COUNT 3.25 10^6/uL (4.30-6.10)
[2019-11-07 22:53] LABS: INR 2.98; PROTHROMBIN TIME 30.9 SECONDS (11.8-14.0)
[2019-11-07 22:54] LABS: PARTIAL THROMBOPLASTIN TIME 69.1 SECONDS (25.0-38.4)
[2019-11-07 22:58] LABS: PLATELET COUNT, AUTOMATED 83 10^3/uL (150-450)
[2019-11-07 23:07] LABS: ALBUMIN 2.8 GM/DL (3.2-5.2); ALT/SGPT 14 U/L (12-78); BILIRUBIN,DIRECT 0.2 MG/DL (0.0-0.2); BILIRUBIN,TOTAL 0.5 MG/DL (0.2-1.0); BLOOD UREA NITROGEN 21 MG/DL (7-18); CALCIUM LEVEL 8.6 MG/DL (8.8-10.2); CARBON DIOXIDE LEVEL 29 MEQ/L (21-32); CHLORIDE LEVEL 106 MEQ/L (98-107); CK-MB VALUE MASS < 1.0 NG/ML (<3.6); CPK CREATINE PHOSPHOKINASE 100 U/L (39-308); CREATININE FOR GFR 0.99 MG/DL (0.70-1.30); FREE T4 0.81 NG/DL (0.76-1.46); GLOMERULAR FILTRATION RATE > 60.0 (>35); GLUCOSE, FASTING 85 MG/DL (70-100); NT-PRO BNP 542 PG/ML (<450); POTASSIUM SERUM 3.1 MEQ/L (3.5-5.1); SODIUM LEVEL 143 MEQ/L (136-145); TOTAL PROTEIN 7.5 GM/DL (6.4-8.2); TROPONIN I < 0.02 NG/ML (< 0.10)
[2019-11-07] MEDS ORDERED: POTASSIUM CHLORIDE 10 MEQ SR TABLET PO ONE (23:45)
--- NOTE | 2019-11-07 23:52 | HPEPDOC ---
[facility] Medical History & Physical Date of Admission Nov 07, 2019 Date of Service: Nov 07, 2019 Primary Care Physician: Anna Garcia Attending Physician: JOSE DANIEL SKINNER MD History and Physical TIME OF SERVICE: 11:57 PM CHIEF COMPLAINT: Sent from urgent care clinic HISTORY OF PRESENT ILLNESS: This is an 84-year-old male came to the hospital after presenting to urgent care clinic with complaints of bilateral lower extremity edema associated with the cough and runny nose for 3 days. He denies having fevers, chills, muscle aches, missing any doses of his Lasix, drinking more fluids than usual, eating more salt or sugar than usual. He reports being admitted to the hospital for CHF about 3 or 4 times in the past, which was usually associated with an upper respiratory tract infection or bronchitis. In the ER, he received Lasix and has voided and reports that his lower extremity edema has improved a bit. REVIEW OF SYSTEMS: 12 point review of systems negative except as listed in HPI PAST MEDICAL/ SURGICAL HISTORY: Diastolic CHF? (Recent echo shows normal EF and doesn't mention diastolic dysfunction) / Mild pulmonary hypertension Aortic sclerosis COPD Atrial fibrillation on warfarin Chronic CAD status post angioplasty and stent placement in 2001 and left coronary artery bypass in 2007 Dyslipidemia IgG kappa monoclonal gammopathy Chronic thrombocytopenia Chronic hypertension OA BPH GERD DAVIDE Chronic sinusitis Cervical radiculopathy/DJD. History of basal cell carcinoma affecting the skin on the nose breast and stomach status post Mohs surgery Prostate cancer status post radiation History of MSSA, oxacillin sensitive bacteremia. 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 Breast cancer Coronary artery disease ALLERGIES: Please see below. HOME MEDICATIONS: Please see below. PHYSICAL EXAMINATION: VITAL SIGNS: Please see below. GEN: well-nourished / well developed/ NAD INTEGUMENT: not flushed/ not jaundice /has spider angiomata on his face / he has chronic stasis dermatitis changes on both lower extremities HEENT: NCAT /mucus membranes moist and pink / sclera anicteric/ + abdominojugular reflux CVS: RRR/NMRG/radial pulses intact, dorsalis pedis pulses difficult to palpate /trace lower extremity edema / his hands are bit cool to touch LUNGS: able to speak full sentences without stopping to take a breath /is coughing occasionally/ lungs are clear to auscultation bilaterally on room air ABDOMEN: Abdominal contour is obese/ the abdomen is tympanic on percussion, soft & not tender with palpation MSK/EXTREMITIES: range of motion intact in all 4 extremities NEURO: CN 2-12 are grossly intact / speech is not dysarthric PSYCH: alert and oriented to person place and time/ able to understand and follow all commands LABORATORY DATA: See below. IMAGING: Chest x-ray " IMPRESSION: Ground-glass opacities and interstitial lung changes may be due to asymmetric edema or developing pneumonia. " Vascular ultrasound "IMPRESSION: No acute findings. No evidence of deep vein thrombosis. " MICROBIOLOGY: Please see below. ASSESSMENT: Mr. Terrazas is a 74 old w a PMH of COPD, diastolic CHF ? , Atrial fibrillation, CAD, IgG kappa monoclonal gammopathy, thrombocytopenia, DAVIDE, hypertension, and OA who is admitted for management of cough and bilateral lower extremity edema, possibly due to early pneumonia and fluid overload. PLAN: 1. Viral URI versus early walking pneumonia. His only symptom is of a cough and runny nose. He does not have a hypoxia, fever, myalgia or chills. Chest x-ray shows possible early pneumonia CURB 65 score to determine if pt should be admitted = 2 points = moderate risk group = consider inpatient or outpatient treatment with close follow-up Plan: admit to medical floor / will give amoxicillin plus doxycycline because there is high resistance for azithromycin in this area /will not give IV fluids because he has bilateral lower extremity edema/ tessalon pearls / Acetaminophen PRN for fever 2. Bilateral lower extremity edema secondary to fluid overload /chronic diastolic CHF? He reports the leg swelling improved after he received Lasix Currently appears compensated His BNP was 542. Chest x-ray showed asymmetric edema. Plan: Monitor I's and O's and daily weights/restrict salt to 2 g and fluid to 2 L/ continue with Lasix 40 mg by mouth twice a day 3. COPD Appears to be stable. He is not wheezing. Plan: Continue with albuterol when necessary , Spiriva twice per day Advair twice a day 4. Chronic CAD / Dyslipidemia Plan: Continue metoprolol, nitroglycerin, and rosuvastatin 5. Atrial fibrillation INR is therapeutic Plan: Continue warfarin and metoprolol 6. Chronic hypertension Plan: Continue metoprolol and spironolactone 7. IgG kappa monoclonal gammopathy / Chronic thrombocytopenia Plan: Follow up with oncologist as scheduled. 8. GERD Plan: Continue PPI 9. DAVIDE Plan: May use own CPAP 10. Obesity. BMI 32.3 This complicates care He has coexisting DAVIDE Plan: can f/u w PCP for reception agent consult / recommend cardiovascular exercise for 40 min 4-5 days a week DVT PROPHYLAXIS: Lovenox DISPOSITION: home possibly tomorrow Vital Signs Vital Signs Date Time Temp Pulse Resp B/P (MAP) Pulse Ox O2 Delivery O2 Flow Rate FiO2 11/07/19 21:37 11/07/19 21:04 98.1 77 16 99 Room Air Laboratory Data Labs 24H Laboratory Tests 2 11/07/19 22:26: Immature Granulocyte % (Auto) 0.2, Neutrophils (%) (Auto) 61.0, Lymphocytes (%) (Auto) 20.9L, Monocytes (%) (Auto) 12.7H, Eosinophils (%) (Auto) 4.8H, Basophils (%) (Auto) 0.4, Neutrophils # (Auto) 3.0, Lymphocytes # (Auto) 1.0L, Monocytes # (Auto) 0.6, Eosinophils # (Auto) 0.2, Basophils # (Auto) 0.0, Nucleated Red Blood Cells % (auto) 0.0, Immature Platelet Fraction 7.5, Prothrombin Time 30.9H, Prothromb Time International Ratio 2.98, Activated Partial Thromboplast Time 69.1H, Anion Gap 8, Glomerular Filtration Rate > 60.0, Calcium Level 8.6L, Total Bilirubin 0.5, Direct Bilirubin 0.2, Aspartate Amino Transf (AST/SGOT) 26, Alanine Aminotransferase (ALT/SGPT) 14, Alkaline Phosphatase 100, Total Creatine Kinase 100, Creatine Kinase MB < 1.0, Creatine Kinase MB Relative Index 1.00, Troponin I < 0.02, SH-Ril-U-Type Natriuretic Peptide 542H, Total Protein 7.5, Albumin 2.8L, Albumin/Globulin Ratio 0.60L, Thyroid Stimulating Hormone (TSH) 3.500, Free Thyroxine 0.81 CBC/BMP Laboratory Tests 11/07/19 22:26 Home Medications Scheduled Cyclosporine (Restasis) 0.05 % Emu, 1 DROP OU BID Esomeprazole Magnesium (Nexium) 40 Mg Cap, 40 MG PO DAILY Fluticasone Propion/Salmeterol (Advair Hfa 115-21 Mcg Inhaler) 1 Aer Aer, 2 PUFF INH BID Furosemide (Furosemide) 40 Mg Tablet, 40 MG PO BID Gabapentin (Gabapentin) 600 Mg Tab, 600 MG PO QAM Metoprolol Succinate (Metoprolol Succinate) 50 Mg Tab.er.24h, 50 MG PO DAILY Rosuvastatin Calcium (Crestor) 20 Mg Tablet, 20 MG PO QHS Spironolactone (Spironolactone) 25 Mg Tablet, 50 MG PO BID Tiotropium [place] (Spiriva) 18 Mcg Cap.w.dev, 1 INHALATION INH DAILY Warfarin Sodium (Warfarin Sodium) 3 Mg Tablet, 3 MG PO BID HAS TAKEN ONLY ONCE TODAY BASED ON LAB RESULTS Scheduled PRN Acetaminophen (Acetaminophen) 500 Mg Tablet, 1,000 MG PO Q6H PRN for PAIN Albuterol Sulf (Albuterol Sulfate) 2.5 Mg/3 Ml Vial.neb, 1 VIAL NEB Q4H PRN for wheezing Albuterol Sulfate (Proair Hfa) 8.5 Gm Hfa.aer.ad, 2 PUFF INH Q4H PRN for SHORTNESS OF BREATH Nitroglycerin (Nitrostat) 0.4 Mg Subl, 0.4 MG SL NITRO PRN for CHEST PAIN Allergies Coded Allergies: No Known Allergies (Verified , 07/15/17) A-FIB/CHADSVASC A-FIB History Current/History of A-Fib/PAF?: Yes Current PO Anticoag Therapy: Yes JOSE DANIEL SKINNER MD Nov 07, 2019 23:52
[2019-11-08] MEDS ORDERED: ACETAMINOPHEN TAB 650MG DOSE (2X325MG) PO PRN
[2019-11-08] MEDS ORDERED: MAALOX 30 ML SUSP *UDC PO PRN
[2019-11-08] MEDS ORDERED: FUROSEMIDE 40 MG/4 ML VIAL (J1940) IV ONE
[2019-11-08] MEDS ORDERED: MOM 30ML SUSPENSION UDC PO PRN
--- NOTE | 2019-11-08 00:20 | REPVR ---
PROCEDURE INFORMATION: Exam: US Duplex Lower Extremity Veins Exam date and time: 11/07/2019 10:19 PM Age: 84 years old Clinical indication: Edema, localized; Lower extremity, bilateral; Additional info: Edema R/O dvt TECHNIQUE: Imaging protocol: Real-time duplex ultrasound of the Lower Extremities with 2-D lr scale, color Doppler flow and spectral waveform analysis with image documentation. Complete exam focused on the bilateral lower extremity veins. COMPARISON: US Duplex, Ext,LOWER veins,unilat 12/17/2018 10:59 PM FINDINGS: Right deep veins: Unremarkable. The common femoral, femoral, proximal profunda femoral and popliteal veins are patent without thrombus. Normal Doppler waveforms. Normal compressibility and/or augmentation response. Right superficial veins: Saphenofemoral junction is patent without thrombus. Left deep veins: Unremarkable. The common femoral, femoral, proximal profunda femoral and popliteal veins are patent without thrombus. Normal Doppler waveforms. Normal compressibility and/or augmentation response. Left superficial veins: Saphenofemoral junction is patent without thrombus. Soft tissues: Unremarkable. IMPRESSION: No acute findings. No evidence of deep vein thrombosis. Electronically signed by: Yves Diane On 11/08/2019 00:20:00 AM
[2019-11-08] MEDS ORDERED: SPIR1CAP INH (00:38)
[2019-11-08] MEDS ORDERED: ALBUTEROL SULFATE 2.5 MG/0.5 ML INH NEB SOLN NEB PRN (01:30)
[2019-11-08] MEDS ORDERED: ALBUTEROL 90 MCG/ACT 8GM HFA INHALER INH PRN (01:30)
[2019-11-08] MEDS ORDERED: NITROGLYCERIN 0.4 MG SUBL TABLET SL PRN (01:30)
[2019-11-08] MEDS: AUGMENTIN 875 MG TAB PO SCH ×2 (02:41→09:00)
[2019-11-08] MEDS: DOXYCYCLINE HYCLATE 100 MG TAB PO SCH ×2 (02:41→09:00)
[2019-11-08] MEDS ORDERED: BENZONATATE 100 MG CAP PO SCH (06:00)
[2019-11-08 07:37] LABS: HEMOGLOBIN 9.6 g/dl (13.5-17.5); MEAN CORPUSCULAR HEMOGLOBIN 30.5 pg (27.0-33.0); MEAN CORPUSCULAR VOLUME 98.4 fl (80.0-96.0); RED BLOOD COUNT 3.15 10^6/uL (4.30-6.10)
[2019-11-08 07:53] LABS: PLATELET COUNT, AUTOMATED 83 10^3/uL (150-450)
[2019-11-08 07:56] LABS: BLOOD UREA NITROGEN 17 MG/DL (7-18); CALCIUM LEVEL 8.9 MG/DL (8.8-10.2); CARBON DIOXIDE LEVEL 29 MEQ/L (21-32); CHLORIDE LEVEL 107 MEQ/L (98-107); CREATININE FOR GFR 0.92 MG/DL (0.70-1.30); GLOMERULAR FILTRATION RATE > 60.0 (>35); GLUCOSE, FASTING 122 MG/DL (70-100); MAGNESIUM LEVEL 1.7 MG/DL (1.8-2.4); POTASSIUM SERUM 3.3 MEQ/L (3.5-5.1); SODIUM LEVEL 143 MEQ/L (136-145)
[2019-11-08 08:00] VITALS: BP 135/68
[2019-11-08] MEDS ORDERED: ADVAIR HFA 115/21MCG INHALER INH SCH (08:00)
[2019-11-08] MEDS ORDERED: TIOTROPIUM INHALER/CAPSULE (SPIRIVA) INH SCH (08:00)
[2019-11-08] MEDS ORDERED: PANTOPRAZOLE 40MG TAB (PROTONIX) PO SCH (09:00)
[2019-11-08] MEDS ORDERED: GABAPENTIN 300 MG CAP PO SCH (09:00)
[2019-11-08] MEDS ORDERED: METOPROLOL SUCC (TopROL XL) 50MG **XL** TAB PO SCH (09:00)
[2019-11-08] MEDS ORDERED: FUROSEMIDE 40 MG TAB PO SCH (09:00)
[2019-11-08] MEDS ORDERED: ENOXAPARIN 40 MG/0.4 ML SYRINGE (J1650) SC SCH (09:00)
[2019-11-08] MEDS ORDERED: DOCUSATE SODIUM 100 MG CAP PO SCH (09:00)
[2019-11-08] MEDS ORDERED: WARFARIN SOD 3 MG TAB PO SCH (09:00)
[2019-11-08] MEDS ORDERED: FUROSEMIDE 40 MG/4 ML VIAL (J1940) IV SCH (09:00)
[2019-11-08] MEDS ORDERED: SPIRONOLACTONE 25 MG TAB PO SCH (09:00)
--- NOTE | 2019-11-08 09:07 | ECGEPIP ---
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
[2019-11-08] MEDS ORDERED: FUROSEMIDE 40 MG TAB PO ONE (12:30)
[2019-11-08] MEDS ORDERED: BENZ200C70 PO (12:47)
[2019-11-08] MEDS ORDERED: MAGNESIUM OXIDE 400 MG TAB (MAG-OX) PO ONE (13:00)
[2019-11-08] MEDS ORDERED: POTASSIUM CHLORIDE 10 MEQ SR TABLET PO ONE (13:00)
--- NOTE | 2019-11-08 13:01 | DS.PDOC ---
Discharge Summary General Date of Admission Nov 08, 2019 at 00:38 Date of Discharge 11/08/19 Attending Physician: DARIA REYES MD Discharge Summary PROCEDURES PERFORMED DURING STAY: [None]. ADMITTING DIAGNOSES: 1. Viral URI vs PNA 2. Bilateral Lower Extremity Edema DISCHARGE DIAGNOSES: 1. RSV URI 2. Bilateral Lower Extremity Edema COMPLICATIONS/CHIEF COMPLAINT: Chf Exacerbation. HISTORY OF PRESENT ILLNESS: Patient is an 84 year old male who originally presented to the lab to get an INR check and was told to go to urgent care due to his upper respiratory symptoms. At the urgent care they performed a chest x- ray and told the patient to present to the ER. At the ER the patient stated that he had bilateral lower extremity edema which he stated is chronic however, he had recently developed a cough and runny nose which has been going on for about 3 days. He had denied any fevers, chills, muscle aches. He denied missing any of his home medications or any recent changes to his home medications. The patient was afebrile and vitally stable in the ER. He did not have an elevated WBC. He was slightly hypokalemic and hypomagnesemic. His BNP was elevated at 542. The patient was on room air with a fairly benign physical exam. Hospitalist service was consulted for further evaluation and management of the patient HOSPITAL COURSE: On admission the patient was given a 40mg IV dose of lasix. He was ordered oral antibiotics however refused as he was unsure of the side effe cts. He was given Benzonatate. Additionally, he was given potassium and magnesium. A respiratory panel was ordered due to the patients URI symptoms which resulted positive for RSV. He was evaluated by physical therapy and found safe for discharge with follow-up with his PCP DISCHARGE MEDICATIONS: Please see below. ALLERGIES: Please see below. PHYSICAL EXAMINATION ON DISCHARGE: VITAL SIGNS: Please see below. GENERAL: Awake, alert, and oriented. Appears in no acute distress. Sitting comfortably on edge of bed. Conversive and pleasant HEENT: Atraumatic, normocephalic. Eyes are nonicteric. Trachea is midline NECK: No palpable cervical, axillary, or supraclavicular lymphadenopathy CARDIOVASCULAR EXAMINATION: Irregularly irregular rhythm. Regular rate. No clicks, rubs, or murmurs RESPIRATORY EXAMINATION: Clear vesicular breath sounds bilaterally. Good respiratory effort. No wheezes, rhonchi, or rales. No accessory muscle use ABDOMINAL EXAMINATION: Soft, nondistended. Nontender. No rebound tenderness or guarding EXTREMITIES: 1 + pitting edema in bilaterally lower extremities - reports that this is improving compared to prior. Varicose veins bilaterally SKIN: No rashes or lesions NEUROLOGICAL EXAMINATION: No focal neurological deficits PSYCHIATRIC EXAMINATION: Mood and affect appear appropriate LABORATORY DATA: Please see below. IMAGING: PROCEDURE INFORMATION: Exam: XR Chest, 2 Views Exam date and time: 11/07/2019 9:58 PM Age: 84 years old Clinical indication: Shortness of breath; Additional info: SOB leg edema eval for chf TECHNIQUE: Imaging protocol: XR of the chest Views: 2 views. COMPARISON: CR Chest, 2 view PA, Lat 05/15/2019 11:28 AM FINDINGS: Lungs: Non-specific interstitial lung changes with some subpleural ground-glass opacities. Pleural space: Unremarkable. No pleural effusion. No pneumothorax. Heart/Mediastinum: Prior sternotomy and CABG. Cardiomegaly. Bones/joints: Skeletal degenerative changes are noted. IMPRESSION: Ground-glass opacities and interstitial lung changes may be due to asymmetric edema or developing pneumonia. Electronically signed by: Yves Diane On 11/07/2019 22:32:34 PM PROCEDURE INFORMATION: Exam: US Duplex Lower Extremity Veins Exam date and time: 11/07/2019 10:19 PM Age: 84 years old Clinical indication: Edema, localized; Lower extremity, bilateral; Additional info: Edema R/O dvt TECHNIQUE: Imaging protocol: Real-time duplex ultrasound of the Lower Extremities with 2-D lr scale, color Doppler flow and spectral waveform analysis with image documentation. Complete exam focused on the bilateral lower extremity veins. COMPARISON: US Duplex, Ext,LOWER veins,unilat 12/17/2018 10:59 PM FINDINGS: Right deep veins: Unremarkable. The common femoral, femoral, proximal profunda femoral and popliteal veins are patent without thrombus. Normal Doppler waveforms. Normal compressibility and/or augmentation response. Right superficial veins: Saphenofemoral junction is patent without thrombus. Left deep veins: Unremarkable. The common femoral, femoral, proximal profunda femoral and popliteal veins are patent without thrombus. Normal Doppler waveforms. Normal compressibility and/or augmentation response. Left superficial veins: Saphenofemoral junction is patent without thrombus. Soft tissues: Unremarkable. IMPRESSION: No acute findings. No evidence of deep vein thrombosis. Electronically signed by: Yves Diane On 11/08/2019 00:20:00 AM PROGNOSIS: Fair ACTIVITY: [As tolerated]. DIET: As tolerated DISCHARGE PLAN: Patient is to be discharged home with follow-up with his PCP in 7-10 days. He is to take Benzonatate TID as needed for cough. He is to return to the ER if his symptoms return or worsen DISCHARGE CONDITION: [Stable]. TIME SPENT ON DISCHARGE: Greater than 40 minutes. Vital Signs/I&Os Vital Signs Date Time Temp Pulse Resp B/P (MAP) Pulse Ox O2 Delivery O2 Flow Rate FiO2 11/08/19 08:00 97.6 73 20 135/68 (90) 94 Room Air Laboratory Data Labs 24H Laboratory Tests 2 11/07/19 22:26: Immature Granulocyte % (Auto) 0.2, Neutrophils (%) (Auto) 61.0, Lymphocytes (%) (Auto) 20.9L, Monocytes (%) (Auto) 12.7H, Eosinophils (%) (Auto) 4.8H, Basophils (%) (Auto) 0.4, Neutrophils # (Auto) 3.0, Lymphocytes # (Auto) 1.0L, Monocytes # (Auto) 0.6, Eosinophils # (Auto) 0.2, Basophils # (Auto) 0.0, Nucleated Red Blood Cells % (auto) 0.0, Immature Platelet Fraction 7.5, Prothrombin Time 30.9H, Prothromb Time International Ratio 2.98, Activated Partial Thromboplast Time 69.1H, Anion Gap 8, Glomerular Filtration Rate > 60.0, Calcium Level 8.6L, Total Bilirubin 0.5, Direct Bilirubin 0.2, Aspartate Amino Transf (AST/SGOT) 26, Alanine Aminotransferase (ALT/SGPT) 14, Alkaline Phosphatase 100, Total Creatine Kinase 100, Creatine Kinase MB < 1.0, Creatine Kinase MB Relative Index 1.00, Troponin I < 0.02, EI-Voh-J-Type Natriuretic Peptide 542H, Total Protein 7.5, Albumin 2.8L, Albumin/Globulin Ratio 0.60L, Thyroid Stimulating Hormone (TSH) 3.500, Free Thyroxine 0.81 11/08/19 06:59: Nucleated Red Blood Cells % (auto) 0.0, Anion Gap 7L, Glomerular Filtration Rate > 60.0, Calcium Level 8.9, Magnesium Level 1.7L CBC/BMP Laboratory Tests 11/07/19 22:26 11/08/19 06:59 Microbiology Microbiology 11/08/19 Respiratory Virus Panel (PCR) ([facility]) - Final, Complete Respiratory Syncytial Virus Discharge Medications Scheduled Cyclosporine (Restasis) 0.05 % Emu, 1 DROP OU BID, (Reported) Esomeprazole Magnesium (Nexium) 40 Mg Cap, 40 MG PO DAILY, (Reported) Fluticasone Propion/Salmeterol (Advair Hfa 115-21 Mcg Inhaler) 1 Aer Aer, 2 PUFF INH BID, (Reported) Furosemide (Furosemide) 40 Mg Tablet, 40 MG PO BID, (Reported) Gabapentin (Gabapentin) 600 Mg Tab, 600 MG PO QAM, (Reported) Gabapentin (Gabapentin) 600 Mg Tab, 1,200 MG PO QHS, (Reported) Metoprolol Succinate (Metoprolol Succinate) 50 Mg Tab.er.24h, 50 MG PO DAILY, (Reported) Rosuvastatin Calcium (Crestor) 20 Mg Tablet, 20 MG PO QHS, (Reported) Spironolactone (Spironolactone) 25 Mg Tablet, 50 MG PO BID, (Reported) Tiotropium [place] (Spiriva) 18 Mcg Cap.w.dev, 1 INHALATION INH DAILY, (Reported) Warfarin Sodium (Warfarin Sodium) 3 Mg Tablet, 3 MG PO BID, (Reported) HAS TAKEN ONLY ONCE TODAY BASED ON LAB RESULTS Scheduled PRN Acetaminophen (Acetaminophen) 500 Mg Tablet, 1,000 MG PO Q6H PRN for PAIN, (Reported) Albuterol Sulf (Albuterol Sulfate) 2.5 Mg/3 Ml Vial.neb, 1 VIAL NEB Q4H PRN for wheezing, (Reported) Albuterol Sulfate (Proair Hfa) 8.5 Gm Hfa.aer.ad, 2 PUFF INH Q4H PRN for SHORTNESS OF BREATH, (Reported) Benzonatate (Benzonatate) 200 Mg Capsule, 200 MG PO TIDP PRN for cough Nitroglycerin (Nitrostat) 0.4 Mg Subl, 0.4 MG SL NITRO PRN for CHEST PAIN, (Reported) Allergies Coded Allergies: No Known Allergies (Verified , 07/15/17) GME ATTESTATION GME ATTESTATION My faculty preceptor for this patient encounter was physically present during the encounter and was fully available. All aspects of the patient interview, examination, medical decision making process, and medical care plan development were reviewed and approved by the faculty preceptor. The faculty preceptor is aware and concurs with the plan as stated in the body of this note and will attest to such by his/her cosignature. ATTENDING NOTE I, Daria Reyes, have independently examined this patient and performed my own physical exam, as well as reviewed the documentation and edited where necessary. I have discussed in detail with the resident / student the findings and plan of treatment as documented by the resident / student and edited their note. I agree with their findings and treatment plan and have edited their documentation. I will continue to follow the patient during this hospital stay. Time spent on discharge 27 minutes ANDREA TRIPLETT DO Nov 08, 2019 13:01 DARIA REYES MD Nov 08, 2019 13:27
[2019-11-08] MEDS ORDERED: GABAPENTIN 400 MG CAP PO SCH (21:00)
== END 2019-11-08 14:00 | disposition home or self-care (01) | DRG 153 ==
LOC: M ED 21:04 → M ED INP 21:05 → OBSVTOIN 11-08 00:38
PROVIDERS: ADMIT Internal Medicine; ATTEND Internal Medicine
DX: J06.9 Acute upper respiratory infection, unspecified (principal); I27.20 Pulmonary hypertension, unspecified; I70.0 Atherosclerosis of aorta; J44.9 Chronic obstructive pulmonary disease, unspecified; I48.91 Unspecified atrial fibrillation; I25.10 Atherosclerotic heart disease of native coronary artery without angina pectoris; E78.5 Hyperlipidemia, unspecified; D47.2 Monoclonal gammopathy; D69.6 Thrombocytopenia, unspecified; I10 Essential (primary) hypertension; E66.9 Obesity, unspecified; I87.2 Venous insufficiency (chronic) (peripheral); B97.4 Respiratory syncytial virus as the cause of diseases classified elsewhere; N40.0 Benign prostatic hyperplasia without lower urinary tract symptoms; K21.9 Gastro-esophageal reflux disease without esophagitis; E87.6 Hypokalemia; G47.33 Obstructive sleep apnea (adult) (pediatric); E83.42 Hypomagnesemia; J32.9 Chronic sinusitis, unspecified; M50.10 Cervical disc disorder with radiculopathy, unspecified cervical region; Z95.5 Presence of coronary angioplasty implant and graft; Z85.828 Personal history of other malignant neoplasm of skin; Z90.5 Acquired absence of kidney; Z90.49 Acquired absence of other specified parts of digestive tract; Z87.891 Personal history of nicotine dependence; Z68.32 Body mass index [BMI] 32.0-32.9, adult; Z79.01 Long term (current) use of anticoagulants; Z79.899 Other long term (current) drug therapy

== ENCOUNTER → 2019-12-15 | Outpatient (REF) | payer MEDICARE ==
[~2019-12-15] MED LIST changes: +BENZ200C70 PO; -CLAR500T PO; +CLAR500T97 PO; -ROSUVASTATIN 10 MG TAB (CRESTOR) PO SCH
[2019-12-17 01:46] LABS: PERCENT SATURATION 15.4 % (19.7-50.0)
[2019-12-17 02:10] LABS: C REACTIVE PROTEIN QUANTITATIV 1.25 MG/DL (0.00-0.30)
[2019-12-17 10:35] LABS: FOLATE 13.2 NG/ML (>5.4)
== END ==
LOC: M LAB REF 16:42
PROVIDERS: ATTEND Internal Medicine
DX: K74.60 Unspecified cirrhosis of liver (principal); K75.4 Autoimmune hepatitis; K80.20 Calculus of gallbladder without cholecystitis without obstruction

== ENCOUNTER → 2020-03-25 | Outpatient (REF) | payer MEDICARE ==
[2020-03-25 16:45] LABS: IRON (FE) 199 UG/DL (65-175); PERCENT SATURATION 56.9 % (19.7-50.0); TOTAL IRON BINDING CAPACITY 350 UG/DL (250-450)
[2020-03-25 16:46] LABS: FERRITIN 78 NG/ML (26-388)
== END ==
LOC: M LAB REF 16:11
PROVIDERS: ATTEND Internal Medicine
DX: K92.1 Melena (principal); K75.4 Autoimmune hepatitis; D50.9 Iron deficiency anemia, unspecified

== ENCOUNTER → 2020-04-29 | Outpatient (CLI) | payer MEDICARE ==
[~2020-04-29] MED LIST changes: +SUCR1TA PO; +VENTAER INH
[2020-04-29 14:26] LABS: BASO % 0.4 % (0.0-1.0); EOS # 0.1 10^3/uL (0.0-0.5); EOS % 2.5 % (0.0-3.0); HEMATOCRIT 36.8 % (42.0-52.0); HEMOGLOBIN 11.2 g/dl (13.5-17.5); LYMPH # 1.2 10^3/uL (1.5-5.0); LYMPH % 24.9 % (24.0-44.0); MEAN CORPUSCULAR HEMOGLOBIN 30.4 pg (27.0-33.0); MEAN CORPUSCULAR HGB CONC 30.4 g/dl (32.0-36.5); MONO # 0.6 10^3/uL (0.0-0.8); MONO % 11.4 % (0.0-5.0); NEUTROPHILS # 2.9 10^3/uL (1.5-8.5); NEUTROPHILS % 60.6 % (36.0-66.0); RED BLOOD COUNT 3.68 10^6/uL (4.30-6.10); WHITE BLOOD COUNT 4.8 10^3/uL (4.0-10.0)
[2020-04-29 14:28] LABS: PLATELET COUNT, AUTOMATED 70 10^3/uL (150-450)
[2020-04-29 14:39] LABS: ALBUMIN 2.7 GM/DL (3.2-5.2); ALT/SGPT 24 U/L (12-78); BILIRUBIN,TOTAL 0.4 MG/DL (0.2-1.0); BLOOD UREA NITROGEN 23 MG/DL (7-18); CALCIUM LEVEL 9.6 MG/DL (8.8-10.2); CARBON DIOXIDE LEVEL 26 MEQ/L (21-32); CHLORIDE LEVEL 108 MEQ/L (98-107); CREATININE FOR GFR 1.17 MG/DL (0.70-1.30); GLOMERULAR FILTRATION RATE > 60.0 (>35); GLUCOSE, FASTING 87 MG/DL (70-100); POTASSIUM SERUM 4.2 MEQ/L (3.5-5.1); SODIUM LEVEL 141 MEQ/L (136-145); TOTAL PROTEIN 7.4 GM/DL (6.4-8.2)
[2020-04-30 17:07] LABS: FREE KAPPA LIGHT CHAINS SERUM 93.1 mg/L (3.3-19.4); FREE LAMBDA LIGHT CHAINS SERUM 10.3 mg/L (5.7-26.3); KAPPA/LAMBDA RATIO SERUM 9.04 (0.26-1.65)
[2020-05-04 11:30] LABS: ALBUMIN 3.31 GM/DL (3.29-5.55); ALBUMIN % 44.7 % (55.8-66.1); ALPHA-1-GLOBULIN % 3.9 % (2.9-4.9); ALPHA-1-GLOBULINS 0.29 GM/DL (0.17-0.41); ALPHA-2-GLOBULINS 0.72 GM/DL (0.42-0.99); ALPHA-2-GLOBULINS % 9.7 % (7.1-11.8); BETA-1-GLOBULINS 2.35 GM/DL (0.28-0.60); BETA-1-GLOBULINS % 31.7 % (4.7-7.2); BETA-2-GLOBULINS 0.38 GM/DL (0.19-0.55); BETA-2-GLOBULINS % 5.1 % (3.2-6.5); GAMMA GLOBULIN % 4.9 % (11.1-18.8)
[2020-05-04 11:31] LABS: GAMMA GLOBULINS 0.36 GM/DL (0.65-1.58)
== END ==
LOC: M WUC 12:22
PROVIDERS: ATTEND Internal Medicine Hematology & Oncology
DX: D69.3 Immune thrombocytopenic purpura (principal)

== ENCOUNTER 2020-07-15 21:11 | Emergency (ER) | payer MEDICARE ==
[~2020-07-15] VITALS: Ht 172.7 cm; Wt 97.7 kg
[~2020-07-15 21:11] MED LIST changes: -VENTAER INH
[2020-07-15 23:13] LABS: BASO % 0.6 % (0.0-1.0); EOS # 0.1 10^3/uL (0.0-0.5); EOS % 2.1 % (0.0-3.0); HEMATOCRIT 37.8 % (42.0-52.0); HEMOGLOBIN 12.1 g/dl (13.5-17.5); LYMPH # 1.2 10^3/uL (1.5-5.0); LYMPH % 25.9 % (24.0-44.0); MEAN CORPUSCULAR HEMOGLOBIN 32.7 pg (27.0-33.0); MEAN CORPUSCULAR VOLUME 102.2 fl (80.0-96.0); MONO # 0.4 10^3/uL (0.0-0.8); MONO % 8.4 % (0.0-5.0); NEUTROPHILS % 62.6 % (36.0-66.0); WHITE BLOOD COUNT 4.8 10^3/uL (4.0-10.0)
--- NOTE | 2020-07-15 23:27 | REPVR ---
PROCEDURE INFORMATION: Exam: US Duplex Left Lower Extremity Veins, Limited Exam date and time: 07/15/2020 11:15 PM Age: 85 years old Clinical indication: Pain; Leg, lower; Left; Additional inf through the o: R/O dvt/pain/swelling TECHNIQUE: Imaging protocol: Real-time Duplex ultrasound of the Left Lower Extremity with 2-D lr scale, color Doppler flow and spectral waveform analysis with image documentation. Limited exam focused on the left lower extremity veins. COMPARISON: US Duplex, Ext LOWER I veins, bilat 2019-11-07 22:05 FINDINGS: Left deep veins: Unremarkable. The common femoral, femoral, proximal profunda femoral and popliteal veins are patent without thrombus. Normal Doppler waveforms. Normal compressibility and/or augmentation response. Left superficial veins: Unremarkable. Saphenofemoral junction is patent without thrombus. Soft tissues: Fluid even speaking IMPRESSION: No evidence of deep vein thrombosis. Electronically signed by: Anatoliy Cabral On 07/15/2020 23:26:43 PM
[2020-07-15 23:28] LABS: PLATELET COUNT, AUTOMATED 63 10^3/uL (150-450)
[2020-07-15 23:34] LABS: INR 1.72; PROTHROMBIN TIME 20.5 SECONDS (11.8-14.0)
[2020-07-15 23:35] LABS: PARTIAL THROMBOPLASTIN TIME 47.6 SECONDS (25.0-38.4)
[2020-07-15 23:47] LABS: ERYTHROCYTE SEDIMENTATION RATE 65 mm/hr (0-20)
--- NOTE | 2020-07-15 23:55 | REPVR ---
PROCEDURE INFORMATION: Exam: XR Left Tibia and Fibula Exam date and time: 07/15/2020 11:50 PM Age: 85 years old Clinical indication: Pain; Lower leg; Left; Additional info: Dropped something on leg/pain TECHNIQUE: Imaging protocol: XR Left tibia and fibula. Views: 2 views. COMPARISON: No relevant prior studies available. FINDINGS: Bones/joints: Mild degenerative joint disease. Soft tissues: Minimal linear meniscal in cartilaginous calcification. IMPRESSION: No acute osseous abnormality. Electronically signed by: Anatoliy Cabral On 07/15/2020 23:55:11 PM
[2020-07-15 23:57] LABS: ALBUMIN 3.4 GM/DL (3.2-5.2); ALT/SGPT 20 U/L (12-78); BILIRUBIN,DIRECT 0.2 MG/DL (0.0-0.2); BILIRUBIN,TOTAL 0.5 MG/DL (0.2-1.0); BLOOD UREA NITROGEN 25 MG/DL (7-18); CALCIUM LEVEL 9.5 MG/DL (8.8-10.2); CARBON DIOXIDE LEVEL 27 MEQ/L (21-32); CHLORIDE LEVEL 110 MEQ/L (98-107); CREATININE FOR GFR 0.93 MG/DL (0.70-1.30); GLOMERULAR FILTRATION RATE > 60.0 (>35); GLUCOSE, FASTING 88 MG/DL (70-100); POTASSIUM SERUM 3.9 MEQ/L (3.5-5.1); SODIUM LEVEL 139 MEQ/L (136-145); TOTAL PROTEIN 8.2 GM/DL (6.4-8.2)
[2020-07-16 00:37] VITALS: BP 134/61
[2020-09-03] MEDS ORDERED: VENTAER INH (15:26)
[2020-09-03] MEDS ORDERED: ADVA115A INH (15:26)
== END 2020-07-16 00:48 | disposition home or self-care (01) ==
LOC: M ED 21:11
DX: S81.802A Unspecified open wound, left lower leg, initial encounter (principal); W22.8XXA Striking against or struck by other objects, initial encounter; Y92.89 Other specified places as the place of occurrence of the external cause; R06.02 Shortness of breath; R11.0 Nausea; I11.0 Hypertensive heart disease with heart failure; I50.9 Heart failure, unspecified; E78.5 Hyperlipidemia, unspecified; I25.2 Old myocardial infarction; K21.9 Gastro-esophageal reflux disease without esophagitis; J44.9 Chronic obstructive pulmonary disease, unspecified; N40.0 Benign prostatic hyperplasia without lower urinary tract symptoms; Z90.5 Acquired absence of kidney; M54.9 Dorsalgia, unspecified; Z87.891 Personal history of nicotine dependence

== ENCOUNTER → 2020-08-16 | Outpatient (CLI) | payer MEDICARE ==
[~2020-08-16] MED LIST changes: +VENTAER INH
--- NOTE | 2020-08-19 12:59 | REP ---
LEFT LOWER EXTREMITY DUPLEX VENOUS ULTRASOUND WITH REFLUX EXAM HISTORY: Chronic venous hypertension with ulcer. FINDINGS: The deep veins are anechoic and fully compressible from the groin to the popliteal fossa in the left lower extremity two-dimensional scanning. Color flow imaging is homogeneous. There is no evidence of deep vein thrombosis (DVT). Spectral Doppler interrogation shows respiratory variation in flow and normal manual augmentation of flow. IMPRESSION: No evidence of deep vein thrombosis. REFLUX FINDINGS: Reflux is visible in the greater saphenous vein from proximal to distal. Greater saphenous vein measures 5 mm in AP dimension proximally at the saphenofemoral junction and displays 1.1 second duration reflux. At mid thigh, its diameter is 4.4 mm and duration of reflux is 5.3 seconds. At the knee, the greater saphenous vein measures 4.2 mm in AP dimension and displays 3.4 second duration reflux. The lesser saphenous vein is 3 mm in diameter, but does not show reflux. No deep system reflux is observed. IMPRESSION: Greater saphenous vein reflux as above. MTDD
== END ==
LOC: M RAD 13:47
PROVIDERS: ATTEND Physician Assistant
DX: I87.2 Venous insufficiency (chronic) (peripheral) (principal); I87.312 Chronic venous hypertension (idiopathic) with ulcer of left lower extremity

== ENCOUNTER → 2020-09-01 | Outpatient (REF) | payer MEDICARE | LOC: M LAB REF 17:07 | PROVIDERS: ATTEND Internal Medicine Nephrology | DX: R80.9 Proteinuria, unspecified (principal) ==

== ENCOUNTER → 2020-09-07 | Outpatient (POV) | payer MEDICARE ==
--- NOTE | 2020-09-09 08:35 | IRCOV ---
[facility] IR Consult Office Visit IR Consult Office Visit DATE: Sep 07, 2020 Patient agreed to this telephone consultation. I spent 30 minutes reviewing patient's records, imaging and talking to the patient. REASON FOR CONSULTATION/CHIEF COMPLAINT: Lower extremity ulcer. Varicose veins. HISTORY OF PRESENT ILLNESS: 85-year-old male with long history of bilateral lower extremity swelling and bulging veins, associated with left pretibial ulcer for greater than 6 months. This started when he bumped a large varix which bled and then became a wound and is refractory to healing. He is under the care of wound care. Recently he dropped scalding water on his feet and now suffers with blisters on the feet. He's unable to ambulate since that accident. He has worn compression stockings to the knees for greater than 4 years. 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 He denies pain with leg elevation. He denies prior calf claudication, gangrene or cold leg. No prior history of deep vein thrombosis. He states he had heart bypass surgery 11 years ago. He denies chest pain, shortness of breath, orthopnea or paroxysmal nocturnal dyspnea. He suffers with COPD. ALLERGIES: Please see below. HOME MEDICATIONS: Please see below. PAST MEDICAL HISTORY: Atrial fibrillation CHF GERD COPD DAVIDE Testicular pain Chronic sinusitis Hyperlipidemia Radiculopathy Degenerative disc disease MSSA sepsis 2019 PAST SURGICAL HISTORY: cardiac bypass FAMILY HISTORY: Noncontributory SOCIAL HISTORY: Ex-smoker. Denies alcohol or drugs. REVIEW OF SYSTEMS: Otherwise negative. PHYSICAL EXAMINATION: No video on patient side. I reviewed the images from wound care of his pretibial ulceration. LABORATORY DATA: 08/26/2020 hemoglobin 12.1 hematocrit 38.2 WBC 6.3 platelets 76 sodium 142 potassium 3.4 BUN 14 creatinine 0.91 hemoglobin A1c 6.2 fasting glucose 119. 07/15/2020 INR 1.7 Imaging: I personally reviewed the left lower extremity venous reflux study performed August 2020. Dilated greater saphenous vein with greater than 0.5 seconds of reflux. ASSESSMENT/PLAN: 85-year-old male with long-standing bilateral lower extremity venous hypertension, nonhealing left lower extremity wound and venous incompetence an ultrasound. I agree patient would benefit from EVLT therapy. We discussed the risks and benefits of the procedure and patient would like to proceed. Patient has opted for the procedure to be done later in October. We scheduled the patient for the procedure. Thank you for this referral. CC Dr. Hutchinson Allergies Coded Allergies: No Known Allergies (Verified , 07/15/17) Home Medications Scheduled Cyclosporine (Restasis), 1 DROP OU BID, (Reported) Esomeprazole Magnesium (Nexium), 40 MG PO DAILY, (Reported) Fluticasone Propion/Salmeterol (Advair Hfa 115-21 Mcg Inhaler), 2 PUFF INH BID, (Reported) Fluticasone Propion/Salmeterol (Advair Hfa 115-21 Mcg Inhaler), 2 PUFF INH BID, (Reported) Furosemide (Furosemide), 40 MG PO BID, (Reported) Gabapentin (Gabapentin), 600 MG PO QAM, (Reported) Gabapentin (Gabapentin), 1,200 MG PO QHS, (Reported) Metoprolol Succinate (Metoprolol Succinate), 50 MG PO DAILY, (Reported) Rosuvastatin Calcium (Crestor), 20 MG PO QHS, (Reported) Spironolactone (Spironolactone), 25 MG PO BID, (Reported) Warfarin Sodium (Warfarin Sodium), 3 MG PO BID, (Reported) Scheduled PRN Acetaminophen (Acetaminophen), 1,000 MG PO Q6H PRN for PAIN, (Reported) Albuterol Sulf (Albuterol Sulfate), 1 VIAL NEB Q4H PRN for wheezing, (Reported) Albuterol Sulfate (Ventolin Hfa), 90 MCG INH QID PRN for wheezing, (Reported) Nitroglycerin (Nitrostat), 0.4 MG SL NITRO PRN for CHEST PAIN, (Reported) Discontinued Medications Albuterol Sulfate (Proair Hfa), 2 PUFF INH Q4H PRN for SHORTNESS OF BREATH, (Reported) Discontinued Reason: Re-entering as NAWAF Yeboah MD Sep 09, 2020 08:35
== END ==
LOC: M TMIRPOV 13:17
PROVIDERS: ATTEND Radiology Diagnostic Radiology
DX: I83.028 Varicose veins of left lower extremity with ulcer other part of lower leg (principal); L97.829 Non-pressure chronic ulcer of other part of left lower leg with unspecified severity; I87.323 Chronic venous hypertension (idiopathic) with inflammation of bilateral lower extremity; I48.91 Unspecified atrial fibrillation; I50.9 Heart failure, unspecified; K21.9 Gastro-esophageal reflux disease without esophagitis; J44.9 Chronic obstructive pulmonary disease, unspecified; G47.33 Obstructive sleep apnea (adult) (pediatric); E78.5 Hyperlipidemia, unspecified; Z87.891 Personal history of nicotine dependence

== ENCOUNTER → 2020-10-11 | Outpatient (CLI) | payer SELFPAY | LOC: M LABSMTC 15:26 | PROVIDERS: ATTEND Pediatrics | DX: Z20.828 Contact with and (suspected) exposure to other viral communicable diseases (principal) ==

== ENCOUNTER → 2020-11-03 | Outpatient (REF) | payer MEDICARE | LOC: M LAB REF 16:24 | PROVIDERS: ATTEND Internal Medicine | DX: Z86.010 Personal history of colon polyps (principal); Z80.0 Family history of malignant neoplasm of digestive organs; Z79.01 Long term (current) use of anticoagulants ==

== ENCOUNTER → 2021-02-11 | Outpatient (CLI) | payer MEDICARE ==
[~2021-02-11] MED LIST changes: +CEFU50TA PO; +HM S0.65
--- NOTE | 2021-02-11 10:51 | REP ---
INDICATION: CIRRHOSIS. COMPARISON: 03/30/2020. TECHNIQUE: Abdominal right upper quadrant ultrasound. FINDINGS: There is cholelithiasis, similar to the prior study The gallbladder appears incompletely distended. The gallbladder wall is thickened measuring 4-7 mm. This could be from incomplete gallbladder distention, fibrosis or edema. There is no pericholecystic fluid. There is no intrahepatic biliary duct dilatation. The common biliary duct is mildly dilated measuring up to 7.7 mm. The hepatic parenchyma is coarse and hepatic margin is scalloped. These findings are compatible with cirrhosis. No hepatic masses or cysts are identified. The visualized portions of the pancreas are unremarkable. Portions of the pancreas are obscured. The patient has a right nephrectomy. There is no right upper quadrant ascites. IMPRESSION: Coarse hepatic L2 echotexture is scalloped hepatic margin compatible with cirrhosis. There are no hepatic masses. There is no ascites. Cholelithiasis. Gallbladder wall thickening, secondary to incomplete gallbladder distention versus fibrosis versus edema. There is no pericholecystic fluid. Mildly dilated common biliary duct. No intrahepatic biliary duct dilatation. <Electronically signed by Jovany Cartwright > 02/11/21 1041
== END ==
LOC: M RAD 09:37
PROVIDERS: ATTEND Internal Medicine Gastroenterology
DX: K44.9 Diaphragmatic hernia without obstruction or gangrene (principal); K21.9 Gastro-esophageal reflux disease without esophagitis; K80.20 Calculus of gallbladder without cholecystitis without obstruction; K74.60 Unspecified cirrhosis of liver; I85.00 Esophageal varices without bleeding; Z80.0 Family history of malignant neoplasm of digestive organs

== ENCOUNTER → 2021-03-21 | Outpatient (CLI) | payer MEDICARE ==
[~2021-03-21] MED LIST changes: +ACET-653 PO
--- NOTE | 2021-03-22 09:15 | REP ---
INDICATION: STAGING MGUS SMOLDERING MYELOMA. COMPARISON: There are no prior CT PET examinations for comparison. The latest prior CT of the abdomen and pelvis for review is 02/11/2019. The latest prior CT examination of the chest for review is 05/15/2019. TECHNIQUE: After the intravenous administration of 14.27 mCi of FDG 18 triplane whole-body PET-CT was performed from the skull base to the mid thigh. FINDINGS: There is no abnormal hypermetabolic activity seen in the neck, chest, abdomen, or pelvis. IMPRESSION: Negative PET-CT <Electronically signed by Mihir Hernandez > 03/22/21 0911
== END ==
LOC: M PLARAD 15:44
PROVIDERS: ATTEND Internal Medicine Medical Oncology
DX: C90.00 Multiple myeloma not having achieved remission (principal)
CPT/HCPCS: 78815; A9552

== ENCOUNTER 2021-04-21 22:55 | Emergency (ER) | payer MEDICARE ==
[~2021-04-21] VITALS: Ht 172.7 cm; Wt 92.2 kg
[~2021-04-21 22:55] MED LIST changes: +XIFA550T PO; +ZOFR4TAB16 PO; +[UNRECOGNIZED DRUG - OTHER]
[2021-04-21 23:40] LABS: HEMATOCRIT 39.7 % (42.0-52.0); HEMOGLOBIN 12.7 g/dl (13.5-17.5); MEAN CORPUSCULAR HEMOGLOBIN 31.6 pg (27.0-33.0); MEAN CORPUSCULAR VOLUME 98.8 fl (80.0-96.0); RED BLOOD COUNT 4.02 10^6/uL (4.30-6.10); WHITE BLOOD COUNT 3.9 10^3/uL (4.0-10.0)
[2021-04-21 23:52] LABS: PLATELET COUNT, AUTOMATED 56 10^3/uL (150-450)
[2021-04-22 00:24] LABS: ANISOCYTOSIS 1+; ATYPICAL LYMPH 5 % (0-5); BASOPHILS 1 % (0-1); EOSINOPHILS 3 % (0-3); LYMPHOCYTES 23 % (16-44); MONOCYTES 12 % (0-5); NEUTROPHILS 56 % (28-66); PLATELET ESTIMATE MARKED DECREASE (NORMAL)
[2021-04-22 00:26] LABS: ALT/SGPT 17 U/L (12-78); BILIRUBIN,DIRECT 0.3 MG/DL (0.0-0.2); BILIRUBIN,TOTAL 0.9 MG/DL (0.2-1.0); BLOOD UREA NITROGEN 12 MG/DL (7-18); CALCIUM LEVEL 9.8 MG/DL (8.8-10.2); CARBON DIOXIDE LEVEL 26 MEQ/L (21-32); CHLORIDE LEVEL 108 MEQ/L (98-107); CK-MB VALUE MASS 1.8 NG/ML (<3.6); CPK CREATINE PHOSPHOKINASE 86 U/L (39-308); CREATININE FOR GFR 0.81 MG/DL (0.70-1.30); FREE T4 1.12 NG/DL (0.76-1.46); GLOMERULAR FILTRATION RATE > 60.0 (>35); GLUCOSE, FASTING 80 MG/DL (70-100); LIPASE 166 U/L (73-393); MB/CK RELATIVE INDEX 2.09 (< OR =4); POTASSIUM SERUM 3.6 MEQ/L (3.5-5.1); SODIUM LEVEL 141 MEQ/L (136-145); TOTAL PROTEIN 8.2 GM/DL (6.4-8.2); TROPONIN I < 0.02 NG/ML (< 0.10)
[2021-04-22] MEDS ORDERED: GI COCKTAIL 50ML BTL(HYOSCYAMINE/MAALOX/LIDOCAINE VISCOUS)(1:3:1) PO ONE (01:20)
[2021-04-22] MEDS ORDERED: PANTOPRAZOLE 40MG VIAL (C9113 PER 1) IV ONE (01:20)
--- NOTE | 2021-04-22 04:15 | REPVR ---
PROCEDURE INFORMATION: Exam: US Abdomen, Limited; Right Upper Quadrant Exam date and time: 04/22/2021 1:40 AM Age: 85 years old Clinical indication: Abdominal pain; Epigastric; Additional info: Ruq pain TECHNIQUE: Imaging protocol: US abdomen. Real time ultrasound with image documentation. Limited exam focused on the right upper quadrant. COMPARISON: 1. Abdomen, limited US 02/11/2021 10:[address] ABD/PEL W/IV CONTRAST ONLY 04/20/2021 6:29:28 PM FINDINGS: Liver: The liver is normal in echogenicity. The liver is relatively small and the surface appears nodular, consistent with cirrhosis. Gallbladder: There is a 1.9 cm mobile stone in the gallbladder. No gallbladder wall thickening or pericholecystic fluid are identified. The laboratory technologist reports a negative Arroyo's sign. Common bile duct: No biliary ductal dilation. The common bile duct measures 6 mm in diameter. Pancreas: The pancreas was not well visualized but appears grossly unremarkable. Right kidney: The right kidney is absent consistent with a history of prior resection. IMPRESSION: 1. Single mobile gallstone. No gallbladder wall thickening or pericholecystic fluid. 2. No biliary ductal dilation. 3. Cirrhotic appearance of the liver correlating with the findings on the prior exams. Electronically signed by: Flora Andrade On 04/22/2021 04:15:17 AM
[2021-04-22 05:27] LABS: CK-MB VALUE MASS 1.2 NG/ML (<3.6); MB/CK RELATIVE INDEX 1.85 (< OR =4); TROPONIN I 0.02 NG/ML (< 0.10)
[2021-04-22 05:31] VITALS: BP 149/67
--- NOTE | 2021-04-22 05:38 | ECGEPIP ---
[facility] - ED Test Date: 2021-04-21 Pat Name: MILAN ABDI Department: Room: - Gender: Male [employer] [facility] 1935 Requested By: JACE Lemus Order Number: [id number] Reading MD: Barry Comer Measurements Intervals [place] Rate: 63 P: TN: QRS: 81 QRSD: 162 T: 20 QT: 492 QTc: 503 Interpretive Statements Atrial fibrillation RIGHT AXIS DEVIATION Right bundle branch block SIMILAR TO 04/20/21 Electronically Signed on 04-22-2021 5:38:48 EDT by Barry Comer
--- NOTE | 2021-04-22 05:43 | ECGEPIP ---
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
== END 2021-04-22 05:45 | disposition home or self-care (01) ==
LOC: M ED 22:55
DX: R10.9 Unspecified abdominal pain (principal); I48.91 Unspecified atrial fibrillation; I45.10 Unspecified right bundle-branch block; R93.2 Abnormal findings on diagnostic imaging of liver and biliary tract; I50.9 Heart failure, unspecified; I10 Essential (primary) hypertension; J44.9 Chronic obstructive pulmonary disease, unspecified; M19.90 Unspecified osteoarthritis, unspecified site; N40.0 Benign prostatic hyperplasia without lower urinary tract symptoms; K21.9 Gastro-esophageal reflux disease without esophagitis; G47.33 Obstructive sleep apnea (adult) (pediatric); D69.6 Thrombocytopenia, unspecified; Z87.891 Personal history of nicotine dependence; Z79.899 Other long term (current) drug therapy
CPT/HCPCS: 76705; 80048; 80076; 82550; 82553; 83690; 84439; 84443; 84484; 85025; 85049; 85055; 93005; 93041; 94760; 96374; 99285; C9113

== ENCOUNTER → 2021-08-17 | Outpatient (CLI) | payer MEDICARE ==
[~2021-08-17] MED LIST changes: -DOXY100C PO; +DOXY100C3 PO
--- NOTE | 2021-08-18 08:53 | REP ---
INDICATION: LUNG NODULE COMPARISON: Multiple the latest 04/20/2021 CT angio chest TECHNIQUE: Standard helical technique without intravenous contrast. FINDINGS: The mediastinum and pulmonary ozzie appear unchanged. No mass or adenopathy has developed. The imaged osseous structures are essentially unchanged, however, air density has developed in the L1-2 disc space. There is no significant change in the appearance of the imaged upper abdomen. Note is again made of a nodular hepatic surface. Evaluation of the lung dexter shows a stable nodule in the right lower lobe, however, there is a new 7 mm size nodule in the right lower lobe. There is a new spiculated nodule in the left lower lobe which measures 17.75 mm. Once again, there are scattered areas of pleural thickening some with calcifications status quo. IMPRESSION: 1. New pulmonary nodules as described above highly suspicious for neoplasm particularly in the left lower lobe. PET-CT is recommended. 2. Newly developed air density in the L5-S1 disc space consistent with vacuum phenomena from degenerative disc disease. 3. Other findings and chronic lung field changes as described above. <Electronically signed by Mihir Hernandez > 08/18/21 [id number]
== END ==
LOC: M RAD 17:36
PROVIDERS: ATTEND Internal Medicine Medical Oncology
DX: R91.1 Solitary pulmonary nodule (principal)

== ENCOUNTER → 2021-08-22 | Outpatient (CLI) | payer MEDICARE ==
[~2021-08-22] MED LIST changes: +OXYC1TAB23 PO
--- NOTE | 2021-08-23 10:24 | REP ---
INDICATION: DIAGNOSING PULMONARY NODULE. COMPARISON: 03/21/2021 PET-CT and prior CT scan of the chest 08/17/2021 TECHNIQUE: After the intravenous administration of 8.71 mCi of FDG 18 triplane whole-body PET-CT was performed from the skull base to the mid thigh FINDINGS: In the left lung lower lobe region at the site of a spiculated lung nodule was seen on the prior chest CT there is hypermetabolic activity with a maximal SUV value of 2.69. Additionally, where there is no CT abnormality a focus of hypermetabolic activity is seen in the right lung lower lobe which is pleural based and having a maximal SUV value of 4.49. Both of the sites represent a change from the prior PET-CT. There is no evidence of mediastinal or hilar abnormal hypermetabolic activity. No other areas of abnormal hypermetabolic activity seen in the neck, chest, abdomen, or pelvis. IMPRESSION: There are 2 new focal areas of abnormal hypermetabolic activity seen in the chest as described above. This needs to be correlated clinically with close follow-up. <Electronically signed by Mihir Hernandez > 08/23/21 1029
== END ==
LOC: M PLARAD 15:11
PROVIDERS: ATTEND Internal Medicine Medical Oncology
DX: R91.1 Solitary pulmonary nodule (principal)
CPT/HCPCS: 78815; A9552

== ENCOUNTER 2021-08-25 09:58 | Inpatient (IN) | payer MEDICARE ==
[~2021-08-25] VITALS: Ht 177.8 cm; Wt 90.3 kg
[~2021-08-25 09:58] MED LIST changes: -HM S0.65; +HM S0.65 NARES
[2021-08-25] MEDS ORDERED: ACETAMINOPHEN TAB 650MG DOSE (2X325MG) PO ONE (10:20)
[2021-08-25 10:32] LABS: VENOUS BASE EXCESS -3.4 (-2.0-2.0); VENOUS HCO3 23.3 MEQ/L (23.0-27.0); VENOUS O2 SATURATION 75.4 % (60.0-80.0); VENOUS PARTIAL PRESSURE CO2 48.9 mmHg (38.0-50.0); VENOUS PARTIAL PRESSURE O2 42.8 mmHg (30.0-50.0); VENOUS PH 7.296 UNITS (7.330-7.430); VENOUS STANDARD HCO3 21.2 MEQ/L; VENOUS TOTAL CO2 24.8 MEQ/L (24.0-28.0)
[2021-08-25 10:38] LABS: HEMATOCRIT 34.8 % (42.0-52.0); HEMOGLOBIN 10.9 g/dl (13.5-17.5); MEAN CORPUSCULAR HEMOGLOBIN 31.6 pg (27.0-33.0); MEAN CORPUSCULAR HGB CONC 31.3 g/dl (32.0-36.5); MEAN CORPUSCULAR VOLUME 100.9 fl (80.0-96.0); RED BLOOD COUNT 3.45 10^6/uL (4.30-6.10)
[2021-08-25 10:40] LABS: PLATELET COUNT, AUTOMATED 45 10^3/uL (150-450)
--- NOTE | 2021-08-25 11:03 | REP ---
INDICATION: DYSPNEA/COUGH. COMPARISON: 11/07/2019. TECHNIQUE: Single portable AP view of the chest was performed. FINDINGS: Diffuse interstitial opacities bilaterally are chronic in nature. No definite superimposed acute infiltrate is visualized. There is stable cardiomegaly. The mediastinal silhouette is unchanged. Multiple sternal wires and mediastinal clips are present. IMPRESSION: Stable chronic findings as discussed above with no definite superimposed acute infiltrate. <Electronically signed by Jovany Farfan > 08/25/21 [id number]
[2021-08-25 11:09] LABS: HYPOCHROMASIA 1+; LYMPHOCYTES 12 % (16-44); MONOCYTES 3 % (0-5); NEUTROPHILS 81 % (28-66); PLATELET ESTIMATE MARKED DECREASE (NORMAL)
[2021-08-25 11:16] LABS: ALBUMIN 2.4 GM/DL (3.2-5.2); ALT/SGPT 21 U/L (12-78); BILIRUBIN,DIRECT 0.5 MG/DL (0.0-0.2); BILIRUBIN,TOTAL 1.2 MG/DL (0.2-1.0); BLOOD UREA NITROGEN 19 MG/DL (7-18); CALCIUM LEVEL 9.3 MG/DL (8.8-10.2); CARBON DIOXIDE LEVEL 25 MEQ/L (21-32); CHLORIDE LEVEL 106 MEQ/L (98-107); CK-MB VALUE MASS < 1.0 NG/ML (<3.6); CPK CREATINE PHOSPHOKINASE 57 U/L (39-308); CREATININE FOR GFR 1.07 MG/DL (0.70-1.30); GLOMERULAR FILTRATION RATE > 60.0 (>35); GLUCOSE, FASTING 138 MG/DL (70-100); MB/CK RELATIVE INDEX 1.75 (< OR =4); NT-PRO BNP 1906 PG/ML (<450); SODIUM LEVEL 138 MEQ/L (136-145); TOTAL PROTEIN 7.8 GM/DL (6.4-8.2); TROPONIN I < 0.02 NG/ML (< 0.10)
[2021-08-25] MEDS ORDERED: FUROSEMIDE 40MG/4ML VIAL (J1940) IV ONE (15:20)
--- NOTE | 2021-08-25 15:29 | REP ---
INDICATION: pneumonia, rml COMPARISON: Multiple the latest 08/17/2021 TECHNIQUE: Standard helical technique without contrast FINDINGS: There is mediastinal and possibly hilar adenopathy difficult to evaluate without contrast. There is engorgement of the left atrial appendage status quo. There is no significant change in appearance of the imaged upper abdomen or imaged osseous structures. There is cholelithiasis and left renovascular calcifications status quo. No pleural or pericardial effusions have developed. Evaluation of the lung dexter shows scattered bilateral interstitial and early airspace opacities. There is respiratory motion artifact obscuring the detail. These opacities represent a change compared to the prior exam. IMPRESSION: Findings most consistent with pulmonary edema likely secondary to CHF with findings and limitations as described above. Follow-up is suggested. <Electronically signed by Mihir Hernandez > 08/25/21 [id number]
[2021-08-25] MEDS ORDERED: IPRATROPIUM 0.5MG/ALBUTEROL 2.5MG INH SOL UD 3ML (DUONEB) NEB ONE (16:45)
--- OUTSIDE RECORDS SUMMARY | 2021-08-25 17:25 | CCD | Continuity of Care Document ---
Author Author Tor Barcenas Organization Unknown Address [phone] [address] Phone [phone] Care Team Providers Care Human Resources Temp Name Role Phone Misael Sheppard MD AUTM [phone] Vitor Mendez MD AUTM [phone] Anna Hoff MD AUTM [phone] Minna Richards MD AUTM [phone] Lory Vasquez MD AUTM [phone] Juan Thompson MD AUTM [phone] Bull Cobian MD AUTM [phone] Nicholas Spring MD AUTM [phone] Anatoliy Mosley MD AUTM [phone] Gayatri Dennison MD AUTM [phone] Aki Nunes MD AUTM [phone] Problems Active Problems Provider Date Benign essential hypertension Anna Hoff M.D. Onset: 07/03/2011 Pure hypercholesterolemia Anna Hoff M.D. Onset: Indigestion Anna Hoff M.D. Onset: 1 Difficulty breathing Anna Hoff M.D. Onset: 07/03/20 11 Malignant tumor of prostate Anna Hoff M.D. Onset: 0 07/03/2011 Essential hypertension Anna Hoff M.D. Onset: 2010 Coronary arteriosclerosis Anna Hoff M.D. Onset: Chronic obstructive lung disease Anna Hoff M.D. Ons et: 07/03/2011 Gastroesophageal reflux disease Anna Hoff M.D. Onse t: 07/03/2011 Osteoarthritis Anna Hoff M.D. Onset: 1 Diastolic heart failure Anna Hoff M.D. Onset: 05/12 Social History Type Date Description Comments Sex Unknown Tobacco Use Start: Unknown End: Unknown Quit QUIT 1988 X 33YRS 1 PACK A DAY ETOH Use Denies alcohol use Tobacco Use Start: Unknown End: Unknown Patient is a former smoker Allergies and adverse reactions Description No Known Drug Allergies Medications Active Medications SIG Qnty Indications Ordering Provide r Date Potassium Chloride ER 10Meq Capsul es ER 1 by mouth every day 90caps Anna Hoff M.D. 09/03 Pain Relieving Lidocaine Patch 4% Patches place one on affected area for 12 hours, limit one per day (post herpretic pain) 90units TON Zimmerman JR 020 Sucralfate 1GM/10ML Suspension 10 milliliters by mouth qhs and qac prn Anna Parker M.D. 05/03/2020 Rosuvastatin Calcium 20mg Tablets Take 1 Tablet Daily 90tabs Anna Hoff M.D. 09/29/[address] 2 by mouth every night at bedtime Anna Hoff M.D. 019 Duloxetine HCL 30mg Caps DR Part 1 by mouth every day 30caps Anna Hoff M.D. 06/19/20 19 Furosemide 40mg Tablets Take 1 Tablet Twice A Day 180tabs Anna Hoff M.D. 05/21/20 19 Ventolin HFA 108(90Base) mcg/Act A erosol 2 puffs four times a day as needed 24gm Anna gonzalez M.D. 02/12/2019 Prevnar 13 Suspension 0.5 cubic centimeters x 1 1units Anna Hoff M.D. 04/10/20 18 Fluticasone Propionate 50mcg/Act Suspension 2 sprays each nostril daily prn 48gm Anna Hoff M.D. 02/22/2016 Esomeprazole Magnesium 40mg Capsul es DR Take 1 Capsule qd Dinner 180caps Anna Hoff M.D. 11/29/2015 Warfarin Sodium 3mg Tablets Take 2 Tablets Daily AT 5 P.M. 180tabs Anna Hoff M.D. 11/11/19 16 Metoprolol Succinate ER 50mg Tablets ER 24HR Take 1 Tablet Daily 90tabs Sosa Moody 11/03/2015 Spironolactone 25mg Tablets 2 by mouth twice a day 360tabs Anna Hoff M.D. 04/29/20 15 Nitrostat 0.4mg Tablets Sub one under tongue every 5 minutes x 3 as needed for chest discomfort 25tabs Anna Hoff M.D. 07/02/2014 Gabapentin 600mg Tablets take 1 tablet three times a day 270tabs Anna Hoff M.D. 2012 Advair HFA 115-21mcg/Act Aerosol 2 sprays bid 90Days Anna Hoff M.D. 07/05/20 11 Restasis 0.05% Emulsion instill as directed Anna Hoff M.D. 03/16/20 10 Saline Nasal [place] 0.65% Solution prn Anna Hoff M.D. 03/16/2010 Nebulizer Misc use as directed dg 496 1units Anna Hoff M.D. 04/2009 Mucinex 600mg Tablets ER 12HR 1 tablet by mouth every 12 hours prn Congestion Unknown Albuterol Sulfate (2 .5mg/3ML) 0.083% Nebulizer use via aerosol every 4 hours a day 540Vials Anna Hoff M.D. Saline Flush 0.9% Solution 10ML IV Before And After The Dose And prn Unknown Valacyclovir HCL 1gm Tablets 1 by mouth three times a day Unknown Triamcinolone Acetonide 0.1% Cream as directed on rash three times a day. Unknown Medications Administered in Office Medication SIG Qnty Indications Ordering Provider Date Immunization Adminstration,1 Vaccine/Tox oid Injection Anna Hoff M.D. 03/2021 Administration Of Flu Vaccine Inj ection Anna Hoff M.D. 09/05/20 04 Immunizations CPT Code Status Date Vaccine Lot # [id number] Given 03/09/2021 Tetanus/Diptheria(Td)Toxoids Preservative Free [id number] U-Flu Given 09/02/2019 Influenza,Unspecified U-Flu Given 08/26/2018 Influenza,Unspecified U-Flu Given 11/18/2017 Influenza,Unspecified U-Td Given 12/06/2009 Td(Adult)(Tetanus, Diphtheri a) unspecified [id number] Given 09/05/2004 Influenza Virus Vaccine [id number] Given 08/18/1997 Influenza Virus Vaccine [id number] Refused 09/11/2017 Influenza Vaccin e Quadrivalent Preser/Antibiotic Free Im Use Vital Signs Date Vital Result Comment 08/19/2021 2:25pm Weight 214.00 lb 06/30/2021 2:23pm Weight 210.00 lb Results Test Acquired Date Facility Test Result H/L Range Note Laboratory test finding 08/19/2021 [facility] 3.8 Laboratory test finding 06/30/2021 [facility] 1.9 Complete Blood Count 06/06/2021 [facility] Programming Specialist: [place] [address] [phone] WBC 4.7 x10*3/UL 4.1 - 10.9 RBC 3.78 x10*6/UL Low 4.20 - 6.30 Hemoglobin 11.8 g/dL Low 12.0 - 18.0 Hematocrit 36.0 % Low 37.0 - 51.0 MCV 95.2 fL 80.0 - 97.0 MCH 31.3 pg 26.0 - 32.0 MCHC 32.8 g/dL 31.0 - 38.0 RDW 15.7 % High 11.6 - 13.7 PLT 66 x10*3/UL Low 140 - 440 1 MPV 10.4 FL 7.8 - 11.0 Lymph % 31.6 % 10.0 - 58.5 Mid % 8.5 % 1.7 - 9.3 Neut % 59.9 % 37.0 - 92.0 Lymph # 1.5 x10*3/UL 0.6 - 4.1 Mid # 0.4 x10*3/UL 0.1 - 0.6 Neut # 2.8 x10*3/UL 2.0 - 7.8 Comprehensive Chem Profile 06/06/2021 [facility] [employer] Programming Specialist: Dr Peter Cervantes [place], [place] [id number] [phone] Glucose 87 mg/dL 74 - 99 2 BUN 20 mg/dL High 7 - 18 Creatinine 1.1 mg/dL 0.6 - 1.3 Sodium 143 mEq/L 136 - 145 Potassium 3.4 mEq/L Low 3.5 - 5.1 Chloride 103 mEq/L 98 - 107 Carbon Dioxide 34 mEq/L High 21 - 32 Calcium 10.1 mg/dL 8.5 - 10.1 Alk. Phosphatase 78 mg/dL 46 - 116 Total Bilirubin 0.6 mg/dL 0.2 - 1.0 Ast (Sgot) 26 U/L 15 - 37 Alt (SGPT) 20 U/L 12 - 78 Albumin 3.0 g/dL Low 3.4 - 5.0 Total Protein 7.7 g/dL 6.4 - 8.2 A/G Ratio 0.64 CALC Low 1.00 - 1.90 GFR >= 60 mL/min >60 GFR >= 60 mL/min >60 3 Laboratory test finding 05/19/2021 [facility] 2.5 Total Iron Binding Capacit 04/29/[address] [address] [phone] Iron (Fe) 70 g/dL Normal 65-175 Total Iron Binding Capacity 286 g/dL Normal 250-450 Percent Saturation 24.5 % Normal 19.7-50.0 Laboratory test finding 04/29/[address] [address] [phone] Ferritin 98 NG/ML Normal 26-388 Serum Protein Electrophoresis 04/29/[address] [place] [id number] [phone] Albumin % 44.3 % Low 55.8-66.1 Smbcq-4-Yarqvtxh % 3.5 % Normal 2.9-4.9 Gszee-1-Loruatrdq % 9.7 % Normal 7.1-11.8 Mprf-4-Mzuvcaykw % 34.0 % High 4.7-7.2 Wrcg-3-Jveeqiomk % 4.0 % Normal 3.2-6.5 Gamma Globulin % 4.5 % Low 11.1-18.8 Albumin 3.37 GM/DL Normal 3.29-5.55 Lpesu-4-Szxkyqjqi 0.27 GM/DL Normal 0.17-0.41 Pfiqb-6-Wcgcnzvru 0.74 GM/DL Normal 0.42-0.99 Eidc-9-Drrxenlci 2.58 GM/DL High 0.28-0.60 Rpcr-4-Bntwcfllt 0.30 GM/DL Normal 0.19-0.55 Gamma Globulins 0.34 GM/DL Low 0.65-1.58 Total Protein 7.6 GM/DL Normal 6.4-8.2 Spep Interpretation SEE COMMENT Normal 4 Spep Pathologist Review REV'D BY Jasmyne WILSON Normal Laboratory test finding 04/29/[address] [id number] [phone] Immunoglobulin A 111.0 mg/dL Normal 70-400 Immunoglobulin G 2550 mg/dL High [phone] Immunoglobulin M 26.9 mg/dL Low 40-230 Comprehensive Metabolic Profil 04/29/[address] [id number] [phone] Glucose, Fasting 100 mg/dL Normal 70-100 Blood Urea Nitrogen 12 mg/dL Normal 7-18 Creatinine For GFR 0.83 mg/dL Normal 0.70-1.30 Glomerular Filtration Rate > 60.0 Normal >35 5 Sodium Level 139 mEq/L Normal 136-145 Potassium Serum 4.0 mEq/L Normal 3.5-5.1 Chloride Level 107 mEq/L Normal 98-107 Carbon Dioxide Level 27 mEq/L Normal 21-32 Anion Gap 5 mEq/L Low 8-16 Calcium Level 9.3 mg/dL Normal 8.8-10.2 Ast/Sgot 28 U/L Normal 7-37 Alt/SGPT 19 U/L Normal 12-78 Alkaline Phosphatase 70 U/L Normal 45-117 Bilirubin,Total 0.4 mg/dL Normal 0.2-1.0 Total Protein 7.6 GM/DL Normal 6.4-8.2 Albumin 2.8 GM/DL Low 3.2-5.2 Albumin/Globulin Ratio 0.6 Normal Free Warrior & Lambda LT Chains 04/29/[address] [address] [phone] Free Warrior Light Chains Serum 192.4 mg/L High 3. 3-19.4 Free Lambda Light Chains Serum 13.3 mg/L Normal 5.7-26.3 Warrior/Lambda Ratio Serum 14.47 High 0.26-1.65 6 Laboratory test finding 04/29/[address] [address] [phone] Immature Platelet Fraction 16.2 % High 0.0-1 0.91 CBC With Differential 04/29/[address] [address] [phone] White Blood Count 4.5 10 Normal 4.0-10.0 Red Blood Count 3.78 10 Low 4.30-6.10 Hemoglobin 12.0 g/dL Low 13.5-17.5 Hematocrit 38.3 % Low 42.0-52.0 Mean Corpuscular Volume 101.3 fl High 80.0-96.0 Mean Corpuscular Hemoglobin 31.7 pg Normal 27.0-33.0 Mean Corpuscular HGB Conc 31.3 g/dL Low 32.0-36.5 Red Cell Distribution Width 16.0 % High 11.5-14.5 Platelet Count, Automated 60 10 Low 150-450 Neutrophils % 60.8 % Normal 36.0-66.0 Lymph % 26.5 % Normal 24.0-44.0 [place] % 9.4 % High 2.0-8.0 Eos % 2.2 % Normal 0.0-3.0 Baso % 0.7 % Normal 0.0-1.0 Immature Granulocyte % 0.4 % Normal 0-3.0 Nucleated Red Blood Cell % 0.0 % Normal 0-0 Neutrophils # 2.7 10 Normal 1.5-8.5 Lymph # 1.2 10 Low 1.5-5.0 [place] # 0.4 10 Normal 0.0-0.8 Eos # 0.1 10 Normal 0.0-0.5 Baso # 0.0 10 Normal 0.0-0.2 Cardiac Marker Panel 04/22/2021 [facility] enter [address] [place] [address] [phone] CPK Creatine Phosphokinase 65 U/L Normal 39-30 8 CK-MB Value Mass 1.2 NG/ML Normal <3.6 MB/CK Relative Index 1.85 Normal < Or =4 7 Troponin I 0.02 NG/ML Normal < 0.10 8 Laboratory test finding 04/21/[address] [address] [phone] Platelet Estimate MARKED DECREASE Normal Normal Immature Platelet Fraction 11.6 % High 0.0-10.91 Laboratory test finding 04/21/[address] [address] [phone] Lipase 166 U/L Normal 73-393 Thyroid Stimulating Hormone 3.810 uIU/ML High 0.358-3.740 Free T4 1.12 ng/dL Normal 0.76-1.46 Basic Metabolic Profile 04/21/[address] [address] [phone] Glucose, Fasting 80 mg/dL Normal 70-100 Blood Urea Nitrogen 12 mg/dL Normal 7-18 Creatinine For GFR 0.81 mg/dL Normal 0.70-1.30 Glomerular Filtration Rate > 60.0 Normal >35 9 Sodium Level 141 mEq/L Normal 136-145 Potassium Serum 3.6 mEq/L Normal 3.5-5.1 Chloride Level 108 mEq/L High 98-107 Carbon Dioxide Level 26 mEq/L Normal 21-32 Anion Gap 7 mEq/L Low 8-16 Calcium Level 9.8 mg/dL Normal 8.8-10.2 Liver Profile 04/21/2021 [facility] nter [address] [place] [address] [phone] Ast/Sgot 31 U/L Normal 7-37 Alt/SGPT 17 U/L Normal 12-78 Alkaline Phosphatase 62 U/L Normal 45-117 Bilirubin,Total 0.9 mg/dL Normal 0.2-1.0 Bilirubin,Direct 0.3 mg/dL High 0.0-0.2 Total Protein 8.2 GM/DL Normal 6.4-8.2 Albumin 3.0 GM/DL Low 3.2-5.2 Albumin/Globulin Ratio 0.6 Normal Cardiac Marker Panel 04/21/2021 [facility] enter [address] [place] [address] [phone] CPK Creatine Phosphokinase 86 U/L Normal 39-30 8 CK-MB Value Mass 1.8 NG/ML Normal <3.6 MB/CK Relative Index 2.09 Normal < Or =4 10 Troponin I < 0.02 NG/ML Normal < 0.10 11 Differential [facility] [address] [place] [address] [phone] Neutrophils 56 % Normal 28-66 Lymphocytes 23 % Normal 16-44 Monocytes 12 % High 0-5 Eosinophils 3 % Normal 0-3 Basophils 1 % Normal 0-1 Atypical Lymph 5 % Normal 0-5 Anisocytosis 1+ Normal CBC With Differential 04/21/[address] [address] [phone] White Blood Count 3.9 10 Low 4.0-10.0 Red Blood Count 4.02 10 Low 4.30-6.10 Hemoglobin 12.7 g/dL Low 13.5-17.5 Hematocrit 39.7 % Low 42.0-52.0 Mean Corpuscular Volume 98.8 fl High 80.0-96.0 Mean Corpuscular Hemoglobin 31.6 pg Normal 27.0-33.0 Mean Corpuscular HGB Conc 32.0 g/dL Normal 32.0-36.5 Red Cell Distribution Width 15.8 % High 11.5-14.5 Platelet Count, Automated 56 10 Low 150-450 Nucleated Red Blood Cell % 0.0 % Normal 0-0 Liver Profile 04/20/20[facility] [address] [place] [address] [phone] Ast/Sgot 44 U/L High 7-37 12 Alt/SGPT 16 U/L Normal 12-78 Alkaline Phosphatase 56 U/L Normal 45-117 Bilirubin,Total 0.8 mg/dL Normal 0.2-1.0 Bilirubin,Direct < 0.1 mg/dL Normal 0.0-0.2 Total Protein 7.8 GM/DL Normal 6.4-8.2 Albumin 2.6 GM/DL Low 3.2-5.2 Albumin/Globulin Ratio 0.5 Normal Laboratory test finding 04/20/[address] [address] [phone] Lipase 119 U/L Normal 73-393 Laboratory test finding 04/20/[address] [address] [phone] iSTAT Troponin 0.01 NG/ML Normal 0.00-0.08 CBC With Differential 04/20/[address] [address] [phone] White Blood Count 4.0 10 Normal 4.0-10.0 Red Blood Count 3.97 10 Low 4.30-6.10 Hemoglobin 12.4 g/dL Low 13.5-17.5 Hematocrit 39.4 % Low 42.0-52.0 Mean Corpuscular Volume 99.2 fl High 80.0-96.0 Mean Corpuscular Hemoglobin 31.2 pg Normal 27.0-33.0 Mean Corpuscular HGB Conc 31.5 g/dL Low 32.0-36.5 Red Cell Distribution Width 15.9 % High 11.5-14.5 Platelet Count, Automated 67 10 Low 150-450 Neutrophils % 51.6 % Normal 36.0-66.0 Lymph % 30.7 % Normal 24.0-44.0 [place] % 12.3 % High 2.0-8.0 Eos % 3.8 % High 0.0-3.0 Baso % 0.8 % Normal 0.0-1.0 Immature Granulocyte % 0.8 % Normal 0-3.0 Nucleated Red Blood Cell % 0.0 % Normal 0-0 Neutrophils # 2.1 10 Normal 1.5-8.5 Lymph # 1.2 10 Low 1.5-5.0 [place] # 0.5 10 Normal 0.0-0.8 Eos # 0.2 10 Normal 0.0-0.5 Baso # 0.0 10 Normal 0.0-0.2 Laboratory test finding 04/20/2021 [facility] [address] [place] [address] [phone] Immature Platelet Fraction 11.3 % High 0.0-1 0.91 Prothrombin Time/Inr 04/20/2021 [facility] enter [address] [place], [place] [id number] [phone] Prothrombin Time 24.7 seconds High 12.5-14.3 Inr 2.17 Normal 13 Istat Chem8+ Panel 04/20/2021 [facility] nter [address] [place], [place] [id number] [phone] iSTAT HCT 39.0 % Normal 38.0-51.0 iSTAT Glucose 96 mg/dL Normal 70-105 iSTAT Sodium 142 mEq/L Normal 136-145 iSTAT Potassium 3.8 mEq/L Normal 3.5-5.1 iSTAT CA++ 4.6 mg/dL Normal 4.5-5.3 iSTAT Chloride 103 mEq/L Normal 98-109 iSTAT Co2 24.0 MM/L Normal 23.0-27.0 iSTAT BUN 11 mg/dL Normal 8-26 iSTAT Creatinine 0.9 mg/dL Normal 0.6-1.3 Laboratory test finding 04/05/2021 [facility] Inr 2.2 Complete Blood Count 03/08/2021 [facility] [employer] Programming Specialist: [place] [address] [phone] WBC 5.4 x10*3/UL 4.1 - 10.9 RBC 4.05 x10*6/UL Low 4.20 - 6.30 Hemoglobin 12.7 g/dL 12.0 - 18.0 Hematocrit 38.3 % 37.0 - 51.0 MCV 94.5 fL 80.0 - 97.0 MCH 31.3 pg 26.0 - 32.0 MCHC 33.1 g/dL 31.0 - 38.0 RDW 14.6 % High 11.6 - 13.7 PLT 86 x10*3/UL Low 140 - 440 14 MPV 10.2 FL 7.8 - 11.0 Lymph % 25.2 % 10.0 - 58.5 Mid % 6.6 % 1.7 - 9.3 Neut % 68.2 % 37.0 - 92.0 Lymph # 1.3 x10*3/UL 0.6 - 4.1 Mid # 0.4 x10*3/UL 0.1 - 0.6 Neut # 3.7 x10*3/UL 2.0 - 7.8 Comprehensive Chem Profile 03/08/2021 [employer] Programming Specialist: [place] [address] [phone] Glucose 133 mg/dL High 74 - 99 15 BUN 17 mg/dL 7 - 18 Creatinine 1.1 mg/dL 0.6 - 1.3 Sodium 142 mEq/L 136 - 145 Potassium 3.3 mEq/L Low 3.5 - 5.1 Chloride 104 mEq/L 98 - 107 Carbon Dioxide 29 mEq/L 21 - 32 Calcium 9.8 mg/dL 8.5 - 10.1 Alk. Phosphatase 88 mg/dL 46 - 116 Total Bilirubin 0.5 mg/dL 0.2 - 1.0 Ast (Sgot) 30 U/L 15 - 37 Alt (SGPT) 19 U/L 12 - 78 Albumin 2.8 g/dL Low 3.4 - 5.0 Total Protein 8.6 g/dL High 6.4 - 8.2 A/G Ratio 0.48 CALC Low 1.00 - 1.90 GFR >= 60 mL/min >60 GFR >= 60 mL/min >60 16 Laboratory test finding 03/08/2021 [facility] [employer] Programming Specialist: Dr Peter [place]ervantes [place] [address] [phone] Thyroid Stimulating Hormone 2.94 uIU/mL 0.3 6 - 3.74 Laboratory test finding 03/03/2021 [facility] In[facility] 2.3 1 NOTE: RESULT VERIFIED. 2 100-125 mg/dL PRE-DIABET ES/FASTING >126 mg/dL DIABETES/FASTING 3 CHRONIC KIDNEY DISEASE STAGI NG PER NKF STAGE I & II GFR >= 60 NORMAL TO MILDLY DECREASED STAGE III GFR 30-59 MODERATELY DECREASED STAGE IV GFR 15-29 SEVERELY DECREASED STAGE V GFR <15 VERY LITTLE GFR LEFT ESRD GFR <15 ON TRANSPORT CONDUCTOR 4 M-SPIKE NOTED IN BETA 1 FAWAD ON. CONCENTRATION = 2.37 GM/DL 5 Units are mL/min/1.73 m2 Chronic Kidney Disease Staging per NKF: Stage I & II GFR >=60 Normal to Mildly Decreased Stage III GFR 30-59 Moderately Decreased Stage IV GFR 15-29 Severely Decreased Stage V GFR <15 Very Little GFR Left ESRD GFR <15 on TRANSPORT CONDUCTOR 6 Performed at: RN - [facility] [address] [id number] Programming Specialist: Keyonna Fraser MD, Phone: [phone] DIAGNOSIS CRITERIA MMB ng/ml Relative Index (RI) NON-AMI < or = 5 N/A PRIETO ZONE > 5 < or = 4 AMI > 5 > 4 8 Troponin I Reference Interva l for [employer] LOCI: 99th Percentile= 0.00-0.045 ng/ml Risk Stratification: <= 0.10 ng/ml Decreased Risk for Adverse Clinical Events. 0.10-1.50 ng/ml Increased Risk for Adv erse Clinical Events. Evaluation of additional criterion and/or repeat testing in 2-6 hours is suggested to rule out myocardial damage. >= 1.50 ng/ml Indicative of Myocardial Injury. 9 Units are mL/min/1.73 m2 Chronic Kidney Disease Staging per NKF: Stage I & II GFR >=60 Normal to Mildly Decreased Stage III GFR 30-59 Moderately Decreased Stage IV GFR 15-29 Severely Decreased Stage V GFR <15 Very Little GFR Left ESRD GFR <15 on TRANSPORT CONDUCTOR 10 DIAGNOSIS CRITERIA MMB ng/ml Relative Index (RI) NON-AMI < or = 5 N/A PRIETO ZONE > 5 < or = 4 AMI > 5 > 4 11 Troponin I Reference Interva l for [employer] [place] LOCI: 99th Percentile= 0.00-0.045 ng/ml Risk Stratification: <= 0.10 ng/ml Decreased Risk for Adverse Clinical Events. 0.10-1.50 ng/ml Increased Risk for Adv erse Clinical Events. Evaluation of additional criterion and/or repeat testing in 2-6 hours is suggested to rule out myocardial damage. >= 1.50 ng/ml Indicative of Myocardial Injury. 12 Testing was performed on a S LIGHTLY hemolyzed specimen. Suggest recollection of specimen for more accurate test results. 13 THERAPUTIC HUMAN INR VALUES INDICATIONS NORMAL RANGES PROPHYLAXIS/TREATMENT OF: VENOUS THROMBOSIS 2.0-3.0 PULMONARY EMBOLISM 2.0-3.0 PREVENTION OF SYSTEMIC EMBOLISM FROM: TISSUE HEART VALVES 2.0-3.0 ACUTE MYOCARDIAL INFARCTION 2.0-3.0 VALVULAR HEART DISEASE 2.0-3.0 ATRIAL FIBRILLATION 2.0-3.0 MECHANICAL VALVES(HIGH RISK) 2.5-3.5 RECURRENT MYOCARDIAL INFARCTION 2.5-3.5 14 NOTE: RESULT VERIFIED. 15 100-125 mg/dL PRE-DIABET ES/FASTING >126 mg/dL DIABETES/FASTING 16 CHRONIC KIDNEY DISEASE STAGI NG PER NKF STAGE I & II GFR >= 60 NORMAL TO MILDLY DECREASED STAGE III GFR 30-59 MODERATELY DECREASED STAGE IV GFR 15-29 SEVERELY DECREASED STAGE V GFR <15 VERY LITTLE GFR LEFT ESRD GFR <15 ON TRANSPORT CONDUCTOR Procedures Date Code Description Status 06/06/2021 63613 Office/Outpatient Established Mo d MDM 30-39 Min Completed 03/09/2021 90660 Est Prevent Med (65Yrs&Ovr) Comp leted 04/15/2019 [id number] Colonoscopy Completed 07/02/2017 [id number] Colonoscopy Completed 05/23/2016 [id number] Diabetic Retinal Eye Exam Comple carmen 05/18/2016 [id number] Colonoscopy Completed 01/30/2013 [id number] Mammogram Completed 05/02/2012 [id number] Colonoscopy Completed Medical Devices Description No Information Available Encounters Type Date Location Provider Dx Diagnosis Office Visit 06/06/2021 11:30a [facility] Leonardo Hoff M.D. D47.2 Monoclonal gammopathy I48.0 Paroxysmal atrial fibrillati on Z79.01 rn long term care (current) use of a nticoagulants I25.10 Athscl heart disease of er[place] ve coronary artery w/o ang pctrs 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 I50.32 Chronic diastolic (congestiv e) heart failure N18.31 Chronic kidney disease, stag e 3a J44.9 Chronic obstructive pulmonar y disease, unspecified C61 Malignant neoplasm of prosta te K21.9 Gastro-esophageal reflux dis ease without esophagitis K74.69 Other cirrhosis of liver E78.00 Pure hypercholesterolemia, u nspecified Office Visit 03/09/2021 2:30p [facility] 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 Encounter for immunization Z13.89 Encounter for screening for other disorder G47.33 Obstructive sleep apnea (michael lt) (pediatric) K21.9 Gastro-esophageal reflux dis ease without esophagitis Assessments Date Code Description Provider 08/19/2021 I48.0 Paroxysmal atrial fibrillation P rotime 08/19/2021 Z51.81 Encounter for therapeutic drug l evel monitoring Protime 06/30/2021 Z51.81 Encounter for therapeutic drug l evel monitoring Lupe Mayorga [facility] 06/30/2021 Z51.81 Encounter for therapeutic drug l evel monitoring Protime 06/30/2021 Z79.01 rn long term care (current) use of antic oagulants DEANNA Lees 06/30/2021 Z79.01 halfway (current) use of antic oagulants Protime 06/30/2021 I48.0 Paroxysmal atrial fibrillation A DEANNA Ocasio 06/30/2021 I48.0 Paroxysmal atrial fibrillation P rotime 06/06/2021 D47.2 Monoclonal gammopathy Anna acuña M.D. 06/06/2021 I48.0 Paroxysmal atrial fibrillation Clark Hoff M.D. 06/06/2021 Z79.01 rn long term care (current) use of antic oagulants Anna Hoff, M.D. 06/06/2021 I25.10 Atherosclerotic hear t disease of [place] coronary artery without angina pectoris Anna Hoff M.D. 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 06/06/2021 I50.32 Chronic diastolic (congestive) h eart failure Anna Hoff M.D. 06/06/2021 N18.31 Chronic kidney disease, stage 3a Anna Hoff M.D. 06/06/2021 J44.9 Chronic obstructive pulmonary di sease, unspecified Anna Hoff M.D. 06/06/2021 C61 Malignant neoplasm of prostate Clark Hoff M.D. 06/06/2021 K21.9 Gastro-esophageal reflux disease without esophagitis Anna Hoff M.D. 06/06/2021 K74.69 Other cirrhosis of liver Anna Hoff M.D. 06/06/2021 E78.00 Pure hypercholesterolemia, unspe cified Anna Hoff M.D. 05/19/2021 I48.0 Paroxysmal atrial fibrillation A jonatan Mayorga [facility] 05/19/2021 I48.0 Paroxysmal atrial fibrillation P rotime 05/19/2021 Z79.01 rn long term care (current) use of antic oagulants Lupe Mayorga [facility] 05/19/2021 Z79.01 rn long term care (current) use of antic oagulants Protime 05/19/2021 Z51.81 Encounter for therapeutic drug l evel monitoring Lupe Mayorga [facility] 05/19/2021 Z51.81 Encounter for therapeutic drug l evel monitoring Protime 05/05/2021 Z51.81 Encounter for therapeutic drug l evel monitoring Lupe Mayorga [facility] 05/05/2021 Z51.81 Encounter for therapeutic drug l evel monitoring Protime 05/05/2021 Z79.01 rn long term care (current) use of antic oagulants Lupe Mayorga [facility] 05/05/2021 Z79.01 halfway (current) use of antic oagulants Protime 05/05/2021 I48.0 Paroxysmal atrial fibrillation A jonatan Mayorga, [employer] REPRESENTATIVE 05/05/2021 I48.0 Paroxysmal atrial fibrillation P rotime 04/05/2021 Z51.81 Encounter for therapeutic drug l evel monitoring Lupe Mayorga, TRAFFIC REPRESENTATIVE 04/05/2021 Z51.81 Encounter for therapeutic drug l evel monitoring Protime 04/05/2021 Z79.01 rn long term care (current) use of antic oagulants Lupe Mayorga, TRAFFIC REPRESENTATIVE 04/05/2021 Z79.01 halfway (current) use of antic oagulants Protime 04/05/2021 I48.0 Paroxysmal atrial fibrillation A jonatan Mayorga, TRAFFIC REPRESENTATIVE 04/05/2021 I48.0 Paroxysmal atrial fibrillation P rotime 03/09/2021 Z00.00 Encounter for genera l adult medical examination without abnormal findings Anna Hoff M.D. 03/09/2021 I48.0 Paroxysmal atrial fibrillation Clark Hoff M.D. 03/09/2021 Z79.01 halfway (current) use of antic oagulants Anna Hoff M.D. 03/09/2021 I25.10 Atherosclerotic hear t disease of [place] coronary artery without angina pectoris Anna Hoff M.D. 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 03/09/2021 N18.31 Chronic kidney disease, stage 3a Anna Hoff M.D. 03/09/2021 I50.32 Chronic diastolic (congestive) h eart failure Anna Hoff M.D. 03/09/2021 J44.9 Chronic obstructive pulmonary di sease, unspecified Anna Hoff M.D. 03/09/2021 C61 Malignant neoplasm of prostate Clark Hoff M.D. 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 03/09/2021 Z23 Encounter for immunization Anna Hoff M.D. 03/09/2021 Z13.89 Encounter for screening for othe r disorder Anna Hoff M.D. 03/09/2021 G47.33 Obstructive sleep apnea (adult) (pediatric) Anna Hoff M.D. 03/09/2021 K21.9 Gastro-esophageal reflux disease without esophagitis Anna Hoff M.D. 03/08/2021 Z79.01 rn long term care (current) use of antic oagulants Anna Hoff M.D. 03/08/2021 Z79.01 halfway (current) use of antic oagulants Lab Schedule 03/08/2021 I48.0 Paroxysmal atrial fibrillation Clark Hoff M.D. 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 03/08/2021 I50.32 Chronic diastolic (congestive) h eart failure Lab Schedule 03/08/2021 N18.31 Chronic kidney disease, stage 3a Anna Hoff M.D. 03/08/2021 N18.31 Chronic kidney disease, stage 3a Lab Schedule 03/03/2021 Z51.81 Encounter for therapeutic drug l evel monitoring DEANNA Lees 03/03/2021 Z51.81 Encounter for therapeutic drug l evel monitoring Protime 03/03/2021 Z79.01 rn long term care (current) use of antic oagulants DEANNA Lees 03/03/2021 Z79.01 halfway (current) use of antic oagulants Protime 03/03/2021 I48.0 Paroxysmal atrial fibrillation A jonatan Mayorga, TRAFFIC REPRESENTATIVE 03/03/2021 I48.0 Paroxysmal atrial fibrillation P rotime Plan of Treatment Future Appointment(s):* 08/26/2021 2:15 pm - Swapna at [facility] * 09/06/2021 3:15 pm - [facility] 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
--- OUTSIDE RECORDS SUMMARY | 2021-08-25 17:25 | CCD | Continuity of Care Document ---
Author Author Tor Barcenas Organization Unknown Address [phone] [address] Phone [phone] Care Team Providers Care Casting Room Helper Name Role Phone Misael Sheppard MD AUTM [phone] Vitor Mendez MD AUTM [phone] Anna Hoff MD AUTM [phone] Minna Richards MD AUTM [phone] Lory Vasquez MD AUTM [phone] Juan Thompson MD AUTM [phone] Bull Cobian MD AUTM [phone] Nicholas Spring MD AUTM [phone] Anatoliy Mosley MD AUTM [phone] Gayatri Dennison MD AUTM [phone] Aki Nunes MD AUTM [phone] Problems Active Problems Provider Date Benign essential [...] Anna Hoff M.D. 03/16/20 10 Saline Nasal [place] 0.65% Solution prn Anna Hoff M.D. 03/16/2010 [...] CPT Code Status Date Vaccine Lot # [id number] Given 03/09/2021 Tetanus/Diptheria(Td)Toxoids Preservative Free [id number] U-Flu Given 09/02/2019 Influenza,Unspecified U-Flu Given 08/26/2018 Influenza,Unspecified U-Flu Given 11/18/2017 Influenza,Unspecified U-Td Given 12/06/2009 Td(Adult)(Tetanus, Diphtheri a) unspecified 61890 Given 09/05/2004 Influenza Virus Vaccine 06173 Given 08/18/1997 Influenza Virus Vaccine 47440 Refused 09/11/2017 Influenza Vaccin e Quadrivalent Preser/Antibiotic Free Im Use Vital Signs Date Vital Result Comment 08/19/2021 2:25pm Weight 214.00 lb 06/30/2021 2:23pm Weight 210.00 lb Results Test Acquired Date Facility Test Result H/L Range Note Laboratory test finding 08/19/2021 Wi-Inr Inr 3.8 Laboratory test finding 06/30/2021 Wi-Inr Inr 1.9 Complete Blood Count 06/06/2021 [facility] Helicopter Pilot: [place] [address] [phone] WBC 4.7 x10*3/UL 4.1 - 10.9 RBC [...] 2.0 - 7.8 Comprehensive Chem Profile 06/06/2021 [facility] Helicopter Pilot: Dr Peter Cervantes [place], [place] [id number] [phone] Glucose 87 mg/dL 74 - 99 2 [...] Inr 2.5 Total Iron Binding Capacit 04/29/[address] [address] [phone] Iron (Fe) 70 g/dL Normal 65-175 Total Iron Binding Capacity 286 g/dL Normal 250-450 Percent Saturation 24.5 % Normal 19.7-50.0 Laboratory test finding 04/29/[address] [address] [phone] Ferritin 98 NG/ML Normal 26-388 Serum Protein Electrophoresis 04/29/[address] [place] [id number] [phone] Albumin % 44.3 % Low 55.8-66.1 Bicyd-6-Oukkwekw % 3.5 % Normal 2.9-4.9 Slgwl-0-Qseusunzz % 9.7 % Normal 7.1-11.8 Zzem-2-Kzuiptpul % 34.0 % High 4.7-7.2 Wmjs-3-Amvhmllvc % 4.0 % Normal 3.2-6.5 Gamma Globulin % 4.5 % Low 11.1-18.8 Albumin 3.37 GM/DL Normal 3.29-5.55 Xfggx-1-Xzeceknpr 0.27 GM/DL Normal 0.17-0.41 Lerjf-2-Cieqqrfmr 0.74 GM/DL Normal 0.42-0.99 Xhgr-9-Nojurelgy 2.58 GM/DL High 0.28-0.60 Kdzq-5-Fijlljjzj 0.30 GM/DL Normal 0.19-0.55 Gamma Globulins 0.34 GM/DL Low 0.65-1.58 Total Protein 7.6 GM/DL Normal 6.4-8.2 Spep Interpretation SEE COMMENT Normal 4 Spep Pathologist Review REV'D BY Jasmyne WILSON Normal Laboratory test finding 04/29/[address] [id number] [phone] Immunoglobulin A 111.0 mg/dL Normal 70-400 Immunoglobulin G 2550 mg/dL High 681-1648 Immunoglobulin M 26.9 mg/dL Low 40-230 Comprehensive Metabolic Profil 04/29/[address] [id number] [phone] Glucose, Fasting 100 mg/dL Normal 70-100 Blood [...] Low 3.2-5.2 Albumin/Globulin Ratio 0.6 Normal Free Donnelly & Lambda LT Chains 04/29/[address] [address] [phone] Free Donnelly Light Chains Serum 192.4 mg/L High 3. 3-19.4 Free Lambda Light Chains Serum 13.3 mg/L Normal 5.7-26.3 Donnelly/Lambda Ratio Serum 14.47 High 0.26-1.65 6 Laboratory test finding 04/29/[address] [address] [phone] Immature Platelet Fraction 16.2 % High 0.0-1 0.91 CBC With Differential 04/29/[address] [address] [phone] White Blood Count 4.5 10 Normal 4.0-10.0 [...] 36.0-66.0 Lymph % 26.5 % Normal 24.0-44.0 [place] % 9.4 % High 2.0-8.0 Eos % 2.2 % Normal 0.0-3.0 Baso % 0.7 % Normal 0.0-1.0 Immature Granulocyte % 0.4 % Normal 0-3.0 Nucleated Red Blood Cell % 0.0 % Normal 0-0 Neutrophils # 2.7 10 Normal 1.5-8.5 Lymph # 1.2 10 Low 1.5-5.0 [place] # 0.4 10 Normal 0.0-0.8 Eos # 0.1 10 Normal 0.0-0.5 Baso # 0.0 10 Normal 0.0-0.2 Cardiac Marker Panel 04/22/2021 [facility] enter [address] [place] [address] [phone] CPK Creatine Phosphokinase 65 U/L Normal 39-30 8 CK-MB Value Mass 1.2 NG/ML Normal <3.6 MB/CK Relative Index 1.85 Normal < Or =4 7 Troponin I 0.02 NG/ML Normal < 0.10 8 Laboratory test finding 04/21/[address] [address] [phone] Platelet Estimate MARKED DECREASE Normal Normal Immature Platelet Fraction 11.6 % High 0.0-10.91 Laboratory test finding 04/21/[address] [address] [phone] Lipase 166 U/L Normal 73-393 Thyroid Stimulating Hormone 3.810 uIU/ML High 0.358-3.740 Free T4 1.12 ng/dL Normal 0.76-1.46 Basic Metabolic Profile 04/21/[address] [address] [phone] Glucose, Fasting 80 mg/dL Normal 70-100 Blood [...] 9.8 mg/dL Normal 8.8-10.2 Liver Profile 04/21/2021 [facility] [address] [place] [address] [phone] Ast/Sgot 31 U/L Normal 7-37 Alt/SGPT 17 U/L Normal 12-78 Alkaline Phosphatase 62 U/L Normal 45-117 Bilirubin,Total 0.9 mg/dL Normal 0.2-1.0 Bilirubin,Direct 0.3 mg/dL High 0.0-0.2 Total Protein 8.2 GM/DL Normal 6.4-8.2 Albumin 3.0 GM/DL Low 3.2-5.2 Albumin/Globulin Ratio 0.6 Normal Cardiac Marker Panel 04/21/2021 [facility] enter [address] [place] [address] [phone] CPK Creatine Phosphokinase 86 U/L Normal 39-30 8 CK-MB Value Mass 1.8 NG/ML Normal <3.6 MB/CK Relative Index 2.09 Normal < Or =4 10 Troponin I < 0.02 NG/ML Normal < 0.10 11 Differential [facility]2021 [facility] [address] [place] [address] [phone] Neutrophils 56 % Normal 28-66 Lymphocytes 23 % Normal 16-44 Monocytes 12 % High 0-5 Eosinophils 3 % Normal 0-3 Basophils 1 % Normal 0-1 Atypical Lymph 5 % Normal 0-5 Anisocytosis 1+ Normal CBC With Differential 04/21/[address] [address] [phone] White Blood Count 3.9 10 Low 4.0-10.0 [...] 0.0 % Normal 0-0 Liver Profile 04/20/2021 [facility] [address] [place] [address] [phone] Ast/Sgot 44 U/L High 7-37 12 Alt/SGPT 16 U/L Normal 12-78 Alkaline Phosphatase 56 U/L Normal 45-117 Bilirubin,Total 0.8 mg/dL Normal 0.2-1.0 Bilirubin,Direct < 0.1 mg/dL Normal 0.0-0.2 Total Protein 7.8 GM/DL Normal 6.4-8.2 Albumin 2.6 GM/DL Low 3.2-5.2 Albumin/Globulin Ratio 0.5 Normal Laboratory test finding 04/20/[address] [address] [phone] Lipase 119 U/L Normal 73-393 Laboratory test finding 04/20/[address] [address] [phone] iSTAT Troponin 0.01 NG/ML Normal 0.00-0.08 CBC With Differential 04/20/[address] [address] [phone] White Blood Count 4.0 10 Normal 4.0-10.0 [...] 36.0-66.0 Lymph % 30.7 % Normal 24.0-44.0 [place] % 12.3 % High 2.0-8.0 Eos % 3.8 % High 0.0-3.0 Baso % 0.8 % Normal 0.0-1.0 Immature Granulocyte % 0.8 % Normal 0-3.0 Nucleated Red Blood Cell % 0.0 % Normal 0-0 Neutrophils # 2.1 10 Normal 1.5-8.5 Lymph # 1.2 10 Low 1.5-5.0 [place] # 0.5 10 Normal 0.0-0.8 Eos # 0.2 10 Normal 0.0-0.5 Baso # 0.0 10 Normal 0.0-0.2 Laboratory test finding 04/20/2021 [facility] [address] [place] [address] [phone] Immature Platelet Fraction 11.3 % High 0.0-1 0.91 Prothrombin Time/Inr 04/20/2021 [facility] enter [address] [place], [place] [id number] [phone] Prothrombin Time 24.7 seconds High 12.5-14.3 Inr 2.17 Normal 13 Istat Chem8+ Panel 04/20/2021 [facility] [address] [place], [place] [address] [phone] iSTAT HCT 39.0 % Normal 38.0-51.0 iSTAT [...] Wi-Inr Inr 2.2 Complete Blood Count 03/08/2021 [facility] Helicopter Pilot: [place] [address] [phone] WBC 5.4 x10*3/UL 4.1 - 10.9 RBC [...] 7.8 Comprehensive Chem Profile 03/08/2021 kiara Wolf Helicopter Pilot: [place] [address] [phone] Glucose 133 mg/dL High 74 - 99 [...] mL/min >60 16 Laboratory test finding 03/08/2021 [facility] Helicopter Pilot: Dr Peter [place] [address] [phone] Thyroid Stimulating Hormone 2.94 uIU/mL 0.3 6 [...] LITTLE GFR LEFT ESRD GFR <15 ON PSYCHIATRY ADULT PHYSICIAN 4 M-SPIKE NOTED IN BETA 1 FAWAD ON. CONCENTRATION = 2.37 GM/DL 5 Units are mL/min/1.73 m2 Chronic Kidney Disease Staging per NKF: Stage I & II GFR >=60 Normal to Mildly Decreased Stage III GFR 30-59 Moderately Decreased Stage IV GFR 15-29 Severely Decreased Stage V GFR <15 Very Little GFR Left ESRD GFR <15 on PSYCHIATRY ADULT PHYSICIAN 6 Performed at: RN - [facility] [address] [id number] Helicopter Pilot: Keyonna Fraser MD, Phone: [phone] DIAGNOSIS CRITERIA MMB ng/ml Relative Index (RI) NON-AMI < or = 5 N/A PRIETO ZONE > 5 < or = 4 AMI > 5 > 4 8 Troponin I Reference Interva l for Revolver [place] LOCI: 99th Percentile= 0.00-0.045 ng/ml Risk Stratification: [...] Little GFR Left ESRD GFR <15 on PSYCHIATRY ADULT PHYSICIAN 10 DIAGNOSIS CRITERIA MMB ng/ml Relative Index (RI) NON-AMI < or = 5 N/A PRIETO ZONE > 5 < or = 4 AMI > 5 > 4 11 Troponin I Reference Interva l for Siemens [place] LOCI: 99th Percentile= 0.00-0.045 ng/ml Risk Stratification: [...] LITTLE GFR LEFT ESRD GFR <15 ON PSYCHIATRY ADULT PHYSICIAN Procedures Date Code Description Status 06/06/2021 82623 Office/Outpatient Established Mo d MDM 30-39 Min Completed 03/09/2021 20307 Est Prevent Med (65Yrs&Ovr) Comp leted 04/15/2019 [id number] Colonoscopy Completed 07/02/2017 [id number] Colonoscopy Completed 05/23/2016 [id number] Diabetic Retinal Eye Exam Comple carmen 05/18/2016 [id number] Colonoscopy Completed 01/30/2013 [id number] Mammogram Completed 05/02/2012 [id number] Colonoscopy Completed Medical Devices Description No Information Available Encounters Type Date Location Provider Dx Diagnosis Office Visit 06/06/2021 11:30a [facility] Leonardo Hoff M.D. D47.2 Monoclonal gammopathy I48.0 Paroxysmal atrial fibrillati on Z79.01 termite renewal inspector (current) use of a nticoagulants I25.10 Athscl [...] hypercholesterolemia, u nspecified Office Visit 03/09/2021 2:[facility]p [facility] 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 06/06/2021 I48.0 Paroxysmal atrial fibrillation Clark Hoff M.D. 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 oagulants Lupe Mayorga [facility] 05/19/2021 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 oagulants Protime 05/19/2021 Z51.81 Encounter for therapeutic drug l evel monitoring Lupe Mayorga [facility] 05/19/2021 Z51.81 Encounter for therapeutic drug l evel monitoring Protime 05/05/2021 Z51.81 Encounter for therapeutic drug l evel monitoring Lupe Mayorga [facility] 05/05/2021 Z51.81 Encounter for therapeutic drug l evel monitoring Protime 05/05/2021 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 Lupe Mayorga [facility] 05/05/2021 Z79.01 senior living (current) use of antic oagulants Protime 05/05/2021 I48.0 Paroxysmal atrial fibrillation A jonatan Mayorga, PSYCHIATRY ADULT PHYSICIAN 05/05/2021 I48.0 Paroxysmal atrial fibrillation P rotime 04/05/2021 Z51.81 Encounter for therapeutic drug l evel monitoring Lupe Mayorga, PSYCHIATRY ADULT PHYSICIAN 04/05/2021 Z51.81 Encounter for therapeutic drug l evel monitoring Protime 04/05/2021 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 03/09/2021 I48.0 Paroxysmal atrial fibrillation Clark Hoff M.D. 03/09/2021 Z79.01 senior living (current) use of antic oagulants Anna Hoff M.D. 03/09/2021 I25.10 Atherosclerotic hear t disease of [place] coronary artery without angina pectoris Anna Hoff [...] without esophagitis Anna Hoff M.D. 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 * 09/06/2021 3:15 pm - [facility] 06/06/2021 - Anna Hoff M.D.* D47.2 Monoclonal gammopathy * I48.0 Paroxysmal atrial fibrillation * Z79.01 senior living (current) use of anticoagulants * I25.10 Atherosclerotic heart disease of [place] coronary artery without angina pectoris * I13.0 [...]
--- OUTSIDE RECORDS SUMMARY | 2021-08-25 17:25 | CCD | Continuity of Care Document ---
Author Author Tor Barcenas Organization Unknown Address [address] [address] Phone [phone] Care Team Providers Care Rn Icu Name Role Phone Misael Sheppard MD AUTM [phone] Vitor Mendez MD AUTM [phone] Anna Hoff MD AUTM [phone] Minna Richards MD AUTM [phone] Lory Vasquez MD AUTM [phone] Juan Thompson MD AUTM [phone] Bull Cobian MD AUTM [phone] Nicholas Spring MD AUTM [phone] Anatoliy Mosley MD AUTM [phone] Gayatri Dennison MD AUTM [phone] Aki Nunes MD AUTM [phone] Problems Active Problems Provider Date Benign essential [...] Anna Hoff M.D. 03/16/20 10 Saline Nasal [place] 0.65% Solution prn Anna Hoff M.D. 03/16/2010 [...] CPT Code Status Date Vaccine Lot # [id number] Given 03/09/2021 Tetanus/Diptheria(Td)Toxoids Preservative Free [id number] U-Flu Given 09/02/2019 Influenza,Unspecified U-Flu Given 08/26/2018 Influenza,Unspecified U-Flu Given 11/18/2017 Influenza,Unspecified U-Td Given 12/06/2009 Td(Adult)(Tetanus, Diphtheri a) unspecified [id number] Given 09/05/2004 Influenza Virus Vaccine [id number] Given 08/18/1997 Influenza Virus Vaccine 43957 Refused 09/11/2017 Influenza Vaccin e Quadrivalent Preser/Antibiotic Free Im Use Vital Signs Date Vital Result Comment 08/19/2021 2:25pm Weight 214.00 lb 06/30/2021 2:23pm Weight 210.00 lb Results Test Acquired Date Facility Test Result H/L Range Note Laboratory test finding 08/19/2021 [facility] In[facility] 3.8 Laboratory test finding 06/30/2021 Wi-Inr Inr 1.9 Complete Blood Count 06/06/2021 [facility] Stitcher Utility: [place] [address] [phone] WBC 4.7 x10*3/UL 4.1 - 10.9 RBC [...] 2.0 - 7.8 Comprehensive Chem Profile 06/06/2021 [facility] Stitcher Utility: Dr Peter Cervantes [place], [place] [id number] [phone] Glucose 87 mg/dL 74 - 99 2 [...] Inr 2.5 Total Iron Binding Capacit 04/29/[address] [address] [phone] Iron (Fe) 70 g/dL Normal 65-175 Total Iron Binding Capacity 286 g/dL Normal 250-450 Percent Saturation 24.5 % Normal 19.7-50.0 Laboratory test finding 04/29/[address] [address] [phone] Ferritin 98 NG/ML Normal 26-388 Serum Protein Electrophoresis 04/29/[address] [place] [id number] [phone] Albumin % 44.3 % Low 55.8-66.1 Fayfj-0-Cwaaxtvl % 3.5 % Normal 2.9-4.9 Hbgvi-6-Wxsbrveym % 9.7 % Normal 7.1-11.8 Wbfm-0-Eggixgpyz % 34.0 % High 4.7-7.2 Cwtm-1-Ieujdekaf % 4.0 % Normal 3.2-6.5 Gamma Globulin % 4.5 % Low 11.1-18.8 Albumin 3.37 GM/DL Normal 3.29-5.55 Qilzn-7-Fufoidcmj 0.27 GM/DL Normal 0.17-0.41 Xwkss-1-Uscgjspnc 0.74 GM/DL Normal 0.42-0.99 Qjrw-2-Duwwcmfol 2.58 GM/DL High 0.28-0.60 Obyo-1-Wnofluauz 0.30 GM/DL Normal 0.19-0.55 Gamma Globulins 0.34 GM/DL Low 0.65-1.58 Total Protein 7.6 GM/DL Normal 6.4-8.2 Spep Interpretation SEE COMMENT Normal 4 Spep Pathologist Review REV'D BY Jasmyne WILSON Normal Laboratory test finding 04/29/[address] [id number] [phone] Immunoglobulin A 111.0 mg/dL Normal 70-400 Immunoglobulin G 2550 mg/dL High [phone] Immunoglobulin M 26.9 mg/dL Low 40-230 Comprehensive Metabolic Profil 04/29/[address] [id number] [phone] Glucose, Fasting 100 mg/dL Normal 70-100 Blood [...] Low 3.2-5.2 Albumin/Globulin Ratio 0.6 Normal Free [place] & Lambda LT Chains 04/29/[address] [address] [phone] Free [place] Light Chains Serum 192.4 mg/L High 3. 3-19.4 Free [place] Light Chains Serum 13.3 mg/L Normal 5.7-26.3 [place]/Lambda Ratio Serum 14.47 High 0.26-1.65 6 Laboratory test finding 04/29/[address] [address] [phone] Immature Platelet Fraction 16.2 % High 0.0-1 0.91 CBC With Differential 04/29/[address] [address] [phone] White Blood Count 4.5 10 Normal 4.0-10.0 [...] 36.0-66.0 Lymph % 26.5 % Normal 24.0-44.0 [place] % 9.4 % High 2.0-8.0 Eos % 2.2 % Normal 0.0-3.0 Baso % 0.7 % Normal 0.0-1.0 Immature Granulocyte % 0.4 % Normal 0-3.0 Nucleated Red Blood Cell % 0.0 % Normal 0-0 Neutrophils # 2.7 10 Normal 1.5-8.5 Lymph # 1.2 10 Low 1.5-5.0 [place] # 0.4 10 Normal 0.0-0.8 Eos # 0.1 10 Normal 0.0-0.5 Baso # 0.0 10 Normal 0.0-0.2 Cardiac Marker Panel 04/22/2021 [facility] [address] [place] [address] [phone] CPK Creatine Phosphokinase 65 U/L Normal 39-30 8 CK-MB Value Mass 1.2 NG/ML Normal <3.6 MB/CK Relative Index 1.85 Normal < Or =4 7 Troponin I 0.02 NG/ML Normal < 0.10 8 Laboratory test finding 04/21/[address] [address] [phone] Platelet Estimate MARKED DECREASE Normal Normal Immature Platelet Fraction 11.6 % High 0.0-10.91 Laboratory test finding 04/21/[address] [address] [phone] Lipase 166 U/L Normal 73-393 Thyroid Stimulating Hormone 3.810 uIU/ML High 0.358-3.740 Free T4 1.12 ng/dL Normal 0.76-1.46 Basic Metabolic Profile 04/21/[address] [address] [phone] Glucose, Fasting 80 mg/dL Normal 70-100 Blood [...] 9.8 mg/dL Normal 8.8-10.2 Liver Profile 04/21/2021 [facility] [address] [place] [address] [phone] Ast/Sgot 31 U/L Normal 7-37 Alt/SGPT 17 U/L Normal 12-78 Alkaline Phosphatase 62 U/L Normal 45-117 Bilirubin,Total 0.9 mg/dL Normal 0.2-1.0 Bilirubin,Direct 0.3 mg/dL High 0.0-0.2 Total Protein 8.2 GM/DL Normal 6.4-8.2 Albumin 3.0 GM/DL Low 3.2-5.2 Albumin/Globulin Ratio 0.6 Normal Cardiac Marker Panel 04/21/2021 [facility] [address] [place] [address] [phone] CPK Creatine Phosphokinase 86 U/L Normal 39-30 8 CK-MB Value Mass 1.8 NG/ML Normal <3.6 MB/CK Relative Index 2.09 Normal < Or =4 10 Troponin I < 0.02 NG/ML Normal < 0.10 11 Differential [facility] [address] [place] [address] [phone] Neutrophils 56 % Normal 28-66 Lymphocytes 23 % Normal 16-44 Monocytes 12 % High 0-5 Eosinophils 3 % Normal 0-3 Basophils 1 % Normal 0-1 Atypical Lymph 5 % Normal 0-5 Anisocytosis 1+ Normal CBC With Differential 04/21/[address] [address] [phone] White Blood Count 3.9 10 Low 4.0-10.0 [...] 0.0 % Normal 0-0 Liver Profile 04/20/2021 [facility] [address] [place] [address] [phone] Ast/Sgot 44 U/L High 7-37 12 Alt/SGPT 16 U/L Normal 12-78 Alkaline Phosphatase 56 U/L Normal 45-117 Bilirubin,Total 0.8 mg/dL Normal 0.2-1.0 Bilirubin,Direct < 0.1 mg/dL Normal 0.0-0.2 Total Protein 7.8 GM/DL Normal 6.4-8.2 Albumin 2.6 GM/DL Low 3.2-5.2 Albumin/Globulin Ratio 0.5 Normal Laboratory test finding 04/20/[address] [address] [phone] Lipase 119 U/L Normal 73-393 Laboratory test finding 04/20/[address] [address] [phone] iSTAT Troponin 0.01 NG/ML Normal 0.00-0.08 CBC With Differential 04/20/[address] [address] [phone] White Blood Count 4.0 10 Normal 4.0-10.0 [...] 36.0-66.0 Lymph % 30.7 % Normal 24.0-44.0 [place] % 12.3 % High 2.0-8.0 Eos % 3.8 % High 0.0-3.0 Baso % 0.8 % Normal 0.0-1.0 Immature Granulocyte % 0.8 % Normal 0-3.0 Nucleated Red Blood Cell % 0.0 % Normal 0-0 Neutrophils # 2.1 10 Normal 1.5-8.5 Lymph # 1.2 10 Low 1.5-5.0 [place] # 0.5 10 Normal 0.0-0.8 Eos # 0.2 10 Normal 0.0-0.5 Baso # 0.0 10 Normal 0.0-0.2 Laboratory test finding 04/20/2021 [facility] [address] [place] [address] [phone] Immature Platelet Fraction 11.3 % High 0.0-1 0.91 Prothrombin Time/Inr 04/20/2021 [facility] [address] [place], [place] [id number] [phone] Prothrombin Time 24.7 seconds High 12.5-14.3 Inr 2.17 Normal 13 Istat Chem8+ Panel 04/20/2021 [facility] [address] [place], [place] [id number] [phone] iSTAT HCT 39.0 % Normal 38.0-51.0 iSTAT [...] Wi-Inr Inr 2.2 Complete Blood Count 03/08/2021 [facility] Stitcher Utility: [place] [address] [phone] WBC 5.4 x10*3/UL 4.1 - 10.9 RBC [...] 7.8 Comprehensive Chem Profile 03/08/2021 kiara Wolf Stitcher Utility: [place] [address] [phone] Glucose 133 mg/dL High 74 - 99 [...] mL/min >60 16 Laboratory test finding 03/08/2021 [facility] Stitcher Utility: [place] [address] [phone] Thyroid Stimulating Hormone 2.94 uIU/mL 0.3 6 [...] LITTLE GFR LEFT ESRD GFR <15 ON ADMITTING SUPERVISOR 4 M-SPIKE NOTED IN BETA 1 FAWAD ON. CONCENTRATION = 2.37 GM/DL 5 Units are mL/min/1.73 m2 Chronic Kidney Disease Staging per NKF: Stage I & II GFR >=60 Normal to Mildly Decreased Stage III GFR 30-59 Moderately Decreased Stage IV GFR 15-29 Severely Decreased Stage V GFR <15 Very Little GFR Left ESRD GFR <15 on ADMITTING SUPERVISOR 6 Performed at: RN - [facility] [address] [id number] Stitcher Utility: Keyonna Fraser MD, Phone: [phone] DIAGNOSIS CRITERIA MMB ng/ml Relative Index (RI) NON-AMI < or = 5 N/A PRIETO ZONE > 5 < or = 4 AMI > 5 > 4 8 Troponin I Reference Interva l for Practice Ignitionta LOCI: 99th Percentile= 0.00-0.045 ng/ml Risk Stratification: [...] Little GFR Left ESRD GFR <15 on ADMITTING SUPERVISOR 10 DIAGNOSIS CRITERIA MMB ng/ml Relative Index (RI) NON-AMI < or = 5 N/A PRIETO ZONE > 5 < or = 4 AMI > 5 > 4 11 Troponin I Reference Interva l for Siemens [place] LOCI: 99th Percentile= 0.00-0.045 ng/ml Risk Stratification: [...] LITTLE GFR LEFT ESRD GFR <15 ON ADMITTING SUPERVISOR Procedures Date Code Description Status 06/06/2021 [address]98[address] Office/Outpatient Established Mo d MDM 30-39 Min Completed 03/09/2021 78363 Est Prevent Med (65Yrs&Ovr) Comp leted 04/15/2019 [id number] Colonoscopy Completed 07/02/2017 [id number] Colonoscopy Completed 05/23/2016 [id number] Diabetic Retinal Eye Exam Comple carmen 05/18/2016 [id number] Colonoscopy Completed 01/30/2013 [id number] Mammogram Completed 05/02/2012 [id number] Colonoscopy Completed Medical Devices Description No Information Available Encounters Type Date Location Provider Dx Diagnosis Office Visit 06/06/2021 11:30a [facility] Leonardo Hoff M.D. 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 06/06/2021 I48.0 Paroxysmal atrial fibrillation Clark Hoff M.D. 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 Protime 05/19/2021 Z51.81 Encounter for therapeutic drug l evel monitoring Lupe Mayorga [facility] 05/19/2021 Z51.81 Encounter for therapeutic drug l evel monitoring Protime 05/05/2021 Z51.81 Encounter for therapeutic drug l evel monitoring Lupe Mayorga [facility] 05/05/2021 Z51.81 Encounter for therapeutic drug l evel monitoring Protime 05/05/2021 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 Lupe Mayorga [facility] 05/05/2021 Z79.01 [facility] (current) use of antic oagulants Protime 05/05/2021 I48.0 Paroxysmal atrial fibrillation A jonatan Mayorga, [employer] WORK[employer] 05/05/2021 I48.0 Paroxysmal atrial fibrillation P rotime 04/05/2021 Z51.81 Encounter for therapeutic drug l evel monitoring Lupe Mayorga, [employer] WORKER 04/05/2021 Z51.81 Encounter for therapeutic drug l evel monitoring Protime 04/05/2021 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 03/09/2021 I48.0 Paroxysmal atrial fibrillation Clark Hoff M.D. 03/09/2021 Z79.01 [facility] (current) use of antic oagulants Anna Hoff M.D. 03/09/2021 I25.10 Atherosclerotic hear t disease of [place] coronary artery without angina pectoris Anna Hoff [...] without esophagitis Anna Hoff M.D. 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 * 09/06/2021 3:15 pm - [facility] 06/06/2021 - Anna Hoff M.D.* D47.2 Monoclonal gammopathy * I48.0 Paroxysmal atrial fibrillation * Z79.01 [facility] (current) use of anticoagulants * I25.10 Atherosclerotic heart disease of [place] coronary artery without angina pectoris * I13.0 [...]
--- OUTSIDE RECORDS SUMMARY | 2021-08-25 17:26 | CCD | Continuity of Care Document ---
Author Author Tor Barcenas Organization Unknown Address [phone] [address] Phone [phone] Care Team Providers Care Medical Territory Manager Name Role Phone Misael Sheppard MD AUTM [phone] Vitor Mendez MD AUTM [phone] Anna Hoff MD AUTM [phone] Minna Richards MD AUTM [phone] Lory Vasquez MD AUTM [phone] Juan Thompson MD AUTM [phone] Bull Cobian MD AUTM [phone] Nicholas Spring MD AUTM [phone] Anatoliy Mosley MD AUTM [phone] Gayatri Dennison MD AUTM [phone] Aki Nunes MD AUTM [phone] Problems Active Problems Provider Date Benign essential [...] End: Unknown Patient is a former smoker Allergies, Adverse Reactions, Alerts Description No Known Drug Allergies Medications Active [...] Anna Hoff M.D. 03/16/20 10 Saline Nasal [place] 0.65% Solution prn Anna Hoff M.D. 03/16/2010 [...] CPT Code Status Date Vaccine Lot # [id number] Given 03/09/2021 Tetanus/Diptheria(Td)Toxoids Preservative Free [id number] U-Flu Given 09/02/2019 Influenza,Unspecified U-Flu Given 08/26/2018 Influenza,Unspecified U-Flu Given 11/18/2017 Influenza,Unspecified U-Td Given 12/06/2009 Td(Adult)(Tetanus, Diphtheri a) unspecified [id number] Given 09/05/2004 Influenza Virus Vaccine 04909 Given 08/18/1997 Influenza Virus Vaccine [id number] Refused 09/11/2017 Influenza Vaccin e Quadrivalent Preser/Antibiotic Free Im Use Vital Signs Date Vital Result Comment 06/30/2021 2:23pm Weight 210.00 lb 06/06/2021 11:39am BP Systolic 126 mmHg RT Arm BP Diastolic 58 mmHg RT Arm Heart Rate 92 /min Height 67.75 inches 5'7.75" Weight 211.50 lb BMI (Body Mass Index) 32.4 kg/m2 Results Test Acquired Date Facility Test Result H/L Range Note Laboratory test finding 06/30/2021 [facility] 1.9 Complete Blood Count 06/06/2021 [facility] Performers: [place] [address] [phone] WBC 4.7 x10*3/UL 4.1 - 10.9 RBC [...] 2.0 - 7.8 Comprehensive Chem Profile 06/06/2021 [facility] Per[facility]: [place] [address] [phone] Glucose 87 mg/dL 74 - 99 2 [...] Laboratory test finding 05/19/2021 Wi-Inr Inr 2.5 CBC With Differential 04/29/2021 [facility] [address] [place] [address] [phone] White Blood Count 4.5 10 Normal 4.0-10.0 [...] 36.0-66.0 Lymph % 26.5 % Normal 24.0-44.0 [place] % 9.4 % High 2.0-8.0 Eos % 2.2 % Normal 0.0-3.0 Baso % 0.7 % Normal 0.0-1.0 Immature Granulocyte % 0.4 % Normal 0-3.0 Nucleated Red Blood Cell % 0.0 % Normal 0-0 Neutrophils # 2.7 10 Normal 1.5-8.5 Lymph # 1.2 10 Low 1.5-5.0 [place] # 0.4 10 Normal 0.0-0.8 Eos # 0.1 10 Normal 0.0-0.5 Baso # 0.0 10 Normal 0.0-0.2 Laboratory test finding 04/29/[address] [address] [phone] Immature Platelet Fraction 16.2 % High 0.0-1 0.91 Free [place] & Lambda LT Chains 04/29/[address] [address] [phone] Free [place] Light Chains Serum 192.4 mg/L High 3. 3-19.4 Free Lambda Light Chains Serum 13.3 mg/L Normal 5.7-26.3 [place]/Lambda Ratio Serum 14.47 High 0.26-1.65 4 Comprehensive Metabolic Profil 04/29/[address] [address] [phone] Glucose, Fasting 100 mg/dL Normal 70-100 Blood [...] GM/DL Low 3.2-5.2 Albumin/Globulin Ratio 0.6 Normal Total Iron Binding Capacit 04/29/[address] [address] [phone] Iron (Fe) 70 g/dL Normal 65-175 Total Iron Binding Capacity 286 g/dL Normal 250-450 Percent Saturation 24.5 % Normal 19.7-50.0 Laboratory test finding 04/29/[address] [address] [phone] Immunoglobulin A 111.0 mg/dL Normal 70-400 Immunoglobulin G 2550 mg/dL High 681-1648 Immunoglobulin M 26.9 mg/dL Low 40-230 Serum Protein Electrophoresis 04/29/[address] [address] [phone] Albumin % 44.3 % Low 55.8-66.1 Xihyq-5-Mhpuonly % 3.5 % Normal 2.9-4.9 Rnuaz-5-Kalecsbmz % 9.7 % Normal 7.1-11.8 Ihlw-8-Uknsgebcv % 34.0 % High 4.7-7.2 Bmha-1-Vegknbsjn % 4.0 % Normal 3.2-6.5 Gamma Globulin % 4.5 % Low 11.1-18.8 Albumin 3.37 GM/DL Normal 3.29-5.55 Crvna-8-Diigdbkgr 0.27 GM/DL Normal 0.17-0.41 Ofxxl-9-Bqqpvokbh 0.74 GM/DL Normal 0.42-0.99 Sbrf-3-Hwqpdrlfk 2.58 GM/DL High 0.28-0.60 Chfx-5-Blzujgnql 0.30 GM/DL Normal 0.19-0.55 Gamma Globulins 0.34 GM/DL Low 0.65-1.58 Total Protein 7.6 GM/DL Normal 6.4-8.2 Spep Interpretation SEE COMMENT Normal 6 Spep Pathologist Review REV'D BY Jasmyne WILSON Normal Laboratory test finding 04/29/2021 [facility] [address] [place] [address] [phone] Ferritin 98 NG/ML Normal 26-388 Cardiac Marker Panel 04/22/2021 [facility] enter [address] [place] [address] [phone] CPK Creatine Phosphokinase 65 U/L Normal 39-30 8 CK-MB Value Mass 1.2 NG/ML Normal <3.6 MB/CK Relative Index 1.85 Normal < Or =4 7 Troponin I 0.02 NG/ML Normal < 0.10 8 CBC With Differential 04/21/[address] [address] [phone] White Blood Count 3.9 10 Low 4.0-10.0 [...] Blood Cell % 0.0 % Normal 0-0 Differential 04/21/2021 [facility] nter [address] [place] [address] [phone] Neutrophils 56 % Normal 28-66 Lymphocytes 23 % Normal 16-44 Monocytes 12 % High 0-5 Eosinophils 3 % Normal 0-3 Basophils 1 % Normal 0-1 Atypical Lymph 5 % Normal 0-5 Anisocytosis 1+ Normal Laboratory test finding 04/21/2021 [facility] [address] [place] [address] [phone] Platelet Estimate MARKED DECREASE Normal Normal Immature Platelet Fraction 11.6 % High 0.0-10.91 Cardiac Marker Panel 04/21/2021 [facility] enter [address] [place] [address] [phone] CPK Creatine Phosphokinase 86 U/L Normal 39-30 8 CK-MB Value Mass 1.8 NG/ML Normal <3.6 MB/CK Relative Index 2.09 Normal < Or =4 9 Troponin I < 0.02 NG/ML Normal < 0.10 10 Liver Profile 04/21/2021 [facility] nter [address] [place] [address] [phone] Ast/Sgot 31 U/L Normal 7-37 Alt/SGPT 17 U/L Normal 12-78 Alkaline Phosphatase 62 U/L Normal 45-117 Bilirubin,Total 0.9 mg/dL Normal 0.2-1.0 Bilirubin,Direct 0.3 mg/dL High 0.0-0.2 Total Protein 8.2 GM/DL Normal 6.4-8.2 Albumin 3.0 GM/DL Low 3.2-5.2 Albumin/Globulin Ratio 0.6 Normal Basic Metabolic Profile 04/21/2021 [facility] [address] [place] [address] [phone] Glucose, Fasting 80 mg/dL Normal 70-100 Blood Urea Nitrogen 12 mg/dL Normal 7-18 Creatinine For GFR 0.81 mg/dL Normal 0.70-1.30 Glomerular Filtration Rate > 60.0 Normal >35 1 1 Sodium Level 141 mEq/L Normal 136-145 Potassium Serum 3.6 mEq/L Normal 3.5-5.1 Chloride Level 108 mEq/L High 98-107 Carbon Dioxide Level 26 mEq/L Normal 21-32 Anion Gap 7 mEq/L Low 8-16 Calcium Level 9.8 mg/dL Normal 8.8-10.2 Laboratory test finding 04/21/2021 [facility] [address] [place] [address] [phone] Lipase 166 U/L Normal 73-393 Thyroid Stimulating Hormone 3.810 uIU/ML High 0.358-3.740 Free T4 1.12 ng/dL Normal 0.76-1.46 Istat Chem8+ Panel 04/20/2021 [facility] nter [address] [place], [place] [address] [phone] iSTAT HCT 39.0 % Normal 38.0-51.0 iSTAT Glucose 96 mg/dL Normal 70-105 iSTAT Sodium 142 mEq/L Normal 136-145 iSTAT Potassium 3.8 mEq/L Normal 3.5-5.1 iSTAT CA++ 4.6 mg/dL Normal 4.5-5.3 iSTAT Chloride 103 mEq/L Normal 98-109 iSTAT Co2 24.0 MM/L Normal 23.0-27.0 iSTAT BUN 11 mg/dL Normal 8-26 iSTAT Creatinine 0.9 mg/dL Normal 0.6-1.3 Laboratory test finding 04/20/[address] [phone] Lipase 119 U/L Normal 73-393 Prothrombin Time/Inr 04/20/2021 [facility] enter [address] [place], [place] [id number] [phone] Prothrombin Time 24.7 seconds High 12.5-14.3 Inr 2.17 Normal 12 Laboratory test finding 04/20/[address] [address] [phone] Immature Platelet Fraction 11.3 % High 0.0-1 0.91 Laboratory test finding 04/20/[address] [address]441 [phone] iSTAT Troponin 0.01 NG/ML Normal 0.00-0.08 Liver Profile 04/20/2021 [facility] nter [address] [place] [address] [phone] Ast/Sgot 44 U/L High 7-37 13 Alt/SGPT 16 U/L Normal 12-78 Alkaline Phosphatase 56 U/L Normal 45-117 Bilirubin,Total 0.8 mg/dL Normal 0.2-1.0 Bilirubin,Direct < 0.1 mg/dL Normal 0.0-0.2 Total Protein 7.8 GM/DL Normal 6.4-8.2 Albumin 2.6 GM/DL Low 3.2-5.2 Albumin/Globulin Ratio 0.5 Normal CBC With Differential 04/20/2021 [facility] [address] [place] [address] [phone] White Blood Count 4.0 10 Normal 4.0-10.0 [...] 36.0-66.0 Lymph % 30.7 % Normal 24.0-44.0 [place] % 12.3 % High 2.0-8.0 Eos % 3.8 % High 0.0-3.0 Baso % 0.8 % Normal 0.0-1.0 Immature Granulocyte % 0.8 % Normal 0-3.0 Nucleated Red Blood Cell % 0.0 % Normal 0-0 Neutrophils # 2.1 10 Normal 1.5-8.5 Lymph # 1.2 10 Low 1.5-5.0 [place] # 0.5 10 Normal 0.0-0.8 Eos # 0.2 10 Normal 0.0-0.5 Baso # 0.0 10 Normal 0.0-0.2 Laboratory test finding 04/05/2021 Wi-Inr Inr 2.2 Complete Blood Count 03/08/2021 [facility] [employer] Performers: [place] [address] [phone] WBC 5.4 x10*3/UL 4.1 - 10.9 RBC [...] 7.8 Comprehensive Chem Profile 03/08/2021 [facility] [employer] [facility]: [place] [address] [phone] Glucose 133 mg/dL High 74 - 99 [...] mL/min >60 16 Laboratory test finding 03/08/2021 [facility]: [place] [address] [phone] Thyroid Stimulating Hormone 2.94 uIU/mL 0.3 6 - 3.74 Laboratory test finding 03/03/2021 Wi-Inr Inr 2.3 Laboratory test finding 01/31/2021 Wi-Inr Inr 2.8 Free [place] & Lambda LT Chains 01/17/[address] [address] [phone] Free [place] Light Chains Serum 207.8 mg/L High 3. 3-19.4 Free Lambda Light Chains Serum 16.3 mg/L Normal 5.7-26.3 [place]/Lambda Ratio Serum 12.75 High 0.26-1.65 17 Laboratory test finding 01/17/[address] [address] [phone] Immature Platelet Fraction 11.2 % High 0.0-1 0.91 CBC With Differential 01/17/[address] [address] [phone] White Blood Count 5.4 10 Normal 4.0-10.0 Red Blood Count 3.78 10 Low 4.30-6.10 Hemoglobin 12.3 g/dL Low 13.5-17.5 Hematocrit 38.6 % Low 42.0-52.0 Mean Corpuscular Volume 102.1 fl High 80.0-96.0 Mean Corpuscular Hemoglobin 32.5 pg Normal 27.0-33.0 Mean Corpuscular HGB Conc 31.9 g/dL Low 32.0-36.5 Red Cell Distribution Width 16.4 % High 11.5-14.5 Platelet Count, Automated 73 10 Low 150-450 Neutrophils % 66.6 % High 36.0-66.0 Lymph % 18.5 % Low 24.0-44.0 [place] % 10.7 % High 2.0-8.0 Eos % 3.2 % High 0.0-3.0 Baso % 0.6 % Normal 0.0-1.0 Immature Granulocyte % 0.4 % Normal 0-3.0 Nucleated Red Blood Cell % 0.0 % Normal 0-0 Neutrophils # 3.6 10 Normal 1.5-8.5 Lymph # 1.0 10 Low 1.5-5.0 [place] # 0.6 10 Normal 0.0-0.8 Eos # 0.2 10 Normal 0.0-0.5 Baso # 0.0 10 Normal 0.0-0.2 Laboratory test finding 01/17/2021 [facility] [address] [place] [address] [phone] Ferritin 84 NG/ML Normal 26-388 Vitamin B12 & Folate 01/17/2021 [facility] enter [address] [place] [address] [phone] Vitamin B12 Level 488 pg/mL Normal 18 Folate 14.2 NG/ML Normal 19 Serum Protein Electrophoresis 01/17/2021 [facility] [address] [place] [address] [phone] Albumin % 41.9 % Low 55.8-66.1 Hlnes-1-Arlywcqh % 4.2 % Normal 2.9-4.9 Odzxx-8-Znscrtsct % 10.6 % Normal 7.1-11.8 Yagn-9-Ppxuwajpl % 32.5 % High 4.7-7.2 Sbtm-5-Skmbfwgco % 5.3 % Normal 3.2-6.5 Gamma Globulin % 5.5 % Low 11.1-18.8 Albumin 3.35 GM/DL Normal 3.29-5.55 Gdbeh-8-Bisuxdgoi 0.34 GM/DL Normal 0.17-0.41 Rfysd-6-Fbpqmgahk 0.85 GM/DL Normal 0.42-0.99 Utuo-0-Vurbfntjg 2.60 GM/DL High 0.28-0.60 Oien-2-Kquqckbna 0.42 GM/DL Normal 0.19-0.55 Gamma Globulins 0.44 GM/DL Low 0.65-1.58 Total Protein 8.0 GM/DL Normal 6.4-8.2 Spep Interpretation SEE COMMENT Normal 20 Spep Pathologist Review REV'D BY O ADJAP <SEE NOTE> Normal 21 Immunoglobulin G,A,M 01/17/2021 [facility] enter [address] [place] [address] [phone] Immunoglobulin A 163.0 mg/dL Normal 70-400 Immunoglobulin G 2750 mg/dL High [phone] Immunoglobulin M 27.5 mg/dL Low 40-230 Total Iron Binding Capacit 01/17/2021 [facility] [address] [place] [address] [phone] Iron (Fe) 79 g/dL Normal 65-175 Total Iron Binding Capacity 330 g/dL Normal 250-450 Percent Saturation 23.9 % Normal 19.7-50.0 Comprehensive Metabolic Profil 01/17/[address] [address] [phone] Glucose, Fasting 93 mg/dL Normal 70-100 Blood Urea Nitrogen 20 mg/dL High 7-18 Creatinine For GFR 0.88 mg/dL Normal 0.70-1.30 Glomerular Filtration Rate > 60.0 Normal >35 2 2 Sodium Level 140 mEq/L Normal 136-145 Potassium Serum 3.3 mEq/L Low 3.5-5.1 Chloride Level 104 mEq/L Normal 98-107 Carbon Dioxide Level 32 mEq/L Normal 21-32 Anion Gap 4 mEq/L Low 8-16 Calcium Level 9.5 mg/dL Normal 8.8-10.2 Ast/Sgot 20 U/L Normal 7-37 Alt/SGPT 16 U/L Normal 12-78 Alkaline Phosphatase 87 U/L Normal 45-117 Bilirubin,Total 0.8 mg/dL Normal 0.2-1.0 Total Protein 8.0 GM/DL Normal 6.4-8.2 Albumin 3.0 GM/DL Low 3.2-5.2 Albumin/Globulin Ratio 0.6 Normal Laboratory test finding 01/13/2021 Wi-Inr Inr 1.8 1 NOTE: RESULT VERIFIED. 2 100-125 mg/dL PRE-DIABET ES/FASTING >126 mg/dL DIABETES/FASTING 3 CHRONIC KIDNEY DISEASE STAGI NG PER NKF STAGE I & II GFR >= 60 NORMAL TO MILDLY DECREASED STAGE III GFR 30-59 MODERATELY DECREASED STAGE IV GFR 15-29 SEVERELY DECREASED STAGE V GFR <15 VERY LITTLE GFR LEFT ESRD GFR <15 ON CONCRETE BATCHER 4 Performed at: RN - [facility] [address] [id number] [employer]: Keyonna Fraser MD, Phone: [phone] 5 Units are mL/min/1.73 m2 Chronic Kidney Disease Staging per NKF: Stage I & II GFR >=60 Normal to Mildly Decreased Stage III GFR 30-59 Moderately Decreased Stage IV GFR 15-29 Severely Decreased Stage V GFR <15 Very Little GFR Left ESRD GFR <15 on CONCRETE BATCHER 6 M-SPIKE NOTED IN BETA 1 FAWAD ON. CONCENTRATION = 2.37 GM/DL 7 DIAGNOSIS CRITERIA MMB ng/ml Relative Index (RI) NON-AMI < or = 5 N/A PRIETO ZONE > 5 < or = 4 AMI > 5 > 4 8 Troponin I Reference Interva l for Siemens [place] LOCI: 99th Percentile= 0.00-0.045 ng/ml Risk Stratification: <= 0.10 ng/ml Decreased Risk for Adverse Clinical Events. 0.10-1.50 ng/ml Increased Risk for Adv erse Clinical Events. Evaluation of additional criterion and/or repeat testing in 2-6 hours is suggested to rule out myocardial damage. >= 1.50 ng/ml Indicative of Myocardial Injury. 9 DIAGNOSIS CRITERIA MMB ng/ml Relative Index (RI) NON-AMI < or = 5 N/A PRIETO ZONE > 5 < or = 4 AMI > 5 > 4 10 Troponin I Reference Interva l for Siemens [place] LOCI: 99th Percentile= 0.00-0.045 ng/ml Risk Stratification: <= 0.10 ng/ml Decreased Risk for Adverse Clinical Events. 0.10-1.50 ng/ml Increased Risk for Adv erse Clinical Events. Evaluation of additional criterion and/or repeat testing in 2-6 hours is suggested to rule out myocardial damage. >= 1.50 ng/ml Indicative of Myocardial Injury. 11 Units are mL/min/1.73 m2 Chronic Kidney Disease Staging per NKF: Stage I & II GFR >=60 Normal to Mildly Decreased Stage III GFR 30-59 Moderately Decreased Stage IV GFR 15-29 Severely Decreased Stage V GFR <15 Very Little GFR Left ESRD GFR <15 on CONCRETE BATCHER 12 THERAPUTIC HUMAN INR VALUES INDICATIONS NORMAL RANGES PROPHYLAXIS/TREATMENT OF: VENOUS THROMBOSIS 2.0-3.0 PULMONARY EMBOLISM 2.0-3.0 PREVENTION OF SYSTEMIC EMBOLISM FROM: TISSUE HEART VALVES 2.0-3.0 ACUTE MYOCARDIAL INFARCTION 2.0-3.0 VALVULAR HEART DISEASE 2.0-3.0 ATRIAL FIBRILLATION 2.0-3.0 MECHANICAL VALVES(HIGH RISK) 2.5-3.5 RECURRENT MYOCARDIAL INFARCTION 2.5-3.5 13 Testing was performed on a S LIGHTLY hemolyzed specimen. Suggest recollection of specimen for more accurate test results. 14 NOTE: RESULT VERIFIED. 15 100-125 mg/dL PRE-DIABET ES/FASTING >126 mg/dL DIABETES/FASTING 16 CHRONIC KIDNEY DISEASE STAGI NG PER NKF STAGE I & II GFR >= 60 NORMAL TO MILDLY DECREASED STAGE III GFR 30-59 MODERATELY DECREASED STAGE IV GFR 15-29 SEVERELY DECREASED STAGE V GFR <15 VERY LITTLE GFR LEFT ESRD GFR <15 ON CONCRETE BATCHER 17 Performed at: RN - [facility] [address] [id number] [employer]: Keyonna Fraser MD, Phone: [phone] 18 VITAMIN B12 NORMAL RANGE NORMAL 247 - 911 PG/ML INDETERMINATE 211 - 246 PG/ML DEFICIENT LESS THAN 211 PG/ML 19 FOLATE NORMAL RANGE NORMAL GREATER THAN 5.4 NG/ML INDETERMINATE 3.4-5.4 NG/ML DEFICIENT LESS THAN 3.4 NG/ML 20 M-SPIKE NOTED IN BETA 1 FAWAD ON. CONCENTRATION = 2.42 GM/DL 21 REV'D BY Vicente ENGLISH 22 Units are mL/min/1.73 m2 Chronic Kidney Disease Staging per NKF: Stage I & II GFR >=60 Normal to Mildly Decreased Stage III GFR 30-59 Moderately Decreased Stage IV GFR 15-29 Severely Decreased Stage V GFR <15 Very Little GFR Left ESRD GFR <15 on CONCRETE BATCHER Procedures Date Code Description Status 06/06/2021 48476 Office/Outpatient Established Mo d MDM 30-39 Min Completed 03/09/2021 20635 Est Prevent Med (65Yrs&Ovr) Comp leted 01/06/2021 95070 Office/Outpatient Established Mo d MDM 30-39 Min Completed 04/15/2019 [id number] Colonoscopy Completed 07/02/2017 [id number] Colonoscopy Completed 05/23/2016 [id number] Diabetic Retinal Eye Exam Comple carmen 05/18/2016 [id number] Colonoscopy Completed 01/30/2013 [id number] Mammogram Completed 05/02/2012 [id number] Colonoscopy Completed Medical Devices Description No Information Available Encounters Type Date Location Provider Dx Diagnosis Office Visit 06/06/2021 11:30a [facility] M.[facility]. D47.2 Monoclonal gammopathy I48.0 Paroxysmal atrial fibrillati on Z79.01 shelter (current) use of a nticoagulants I25.10 Athscl [...] hypercholesterolemia, u nspecified Office Visit 03/09/2021 2:30p [facility] PK[facility]em Hoff M.D. 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 J44.9 Chronic obstructive pulmonar y disease, unspecified K74.60 Unspecified cirrhosis of elliot er D47.2 Monoclonal gammopathy K21.9 Gastro-esophageal reflux dis ease without esophagitis Z68.33 Body mass index [BMI] 33.0-3 3.9, adult Assessments Date Code Description Provider 06/30/2021 Z51.81 Encounter for therapeutic drug l evel monitoring Lupe Mayorga, [facility] 06/30/2021 Z51.81 Encounter for therapeutic drug l evel monitoring Protime 06/30/2021 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 06/06/2021 I48.0 Paroxysmal atrial fibrillation Clark Hoff M.D. 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 06/06/2021 I25.10 Atherosclerotic hear t disease of [place] coronary artery without angina pectoris Anna Hoff [...] M.D. 05/19/2021 I48.0 Paroxysmal atrial fibrillation A nn Lizy Polk, [facility] 05/19/2021 I48.0 Paroxysmal atrial fibrillation P rotime 05/19/2021 Z79.01 shelter (current) use of antic oagulants Lupe Lizy Polk, [employer] 05/19/2021 Z79.01 shelter (current) use of antic oagulants Protime 05/19/2021 Z51.81 Encounter for therapeutic drug l evel monitoring Lupe Le [place], [employer] 05/19/2021 Z51.81 Encounter for therapeutic drug l evel monitoring Protime 05/05/2021 Z51.81 Encounter for therapeutic drug l evel monitoring Lupe Lizy [place], [employer] 05/05/2021 Z51.81 Encounter for therapeutic drug l evel monitoring Protime 05/05/2021 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.01 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 Lupe Lizy Polk, [facility] 05/05/2021 Z79.01 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 oagulants Protime 05/05/2021 I48.0 Paroxysmal atrial fibrillation A nn Lizy Polk, [employer] 05/05/2021 I48.0 Paroxysmal atrial fibrillation P rotime 04/05/2021 Z51.81 Encounter for therapeutic drug l evel monitoring Lupe Lizy Polk, [facility] 04/05/2021 Z51.81 Encounter for therapeutic drug l evel monitoring Protime 04/05/2021 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 03/09/2021 I48.0 Paroxysmal atrial fibrillation Clark Hoff M.D. 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 03/09/2021 I25.10 Atherosclerotic hear t disease of [place] coronary artery without angina pectoris Anna Hoff [...] esophagitis Anna Hoff M.D. 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01 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 Lupe Mayorga, [facility] 01/31/2021 Z79.01 shelter (current) use of antic oagulants Protime 01/13/2021 Z51.81 Encounter for therapeutic drug l evel monitoring Lupe Mayorga, [facility] 01/13/2021 I48.0 Paroxysmal atrial fibrillation P rotime 01/13/2021 Z79.01 shelter (current) use of antic oagulants Lupe Mayorga, [facility] 01/13/2021 Z51.81 Encounter for therapeutic drug l evel monitoring Protime 01/13/2021 I48.0 Paroxysmal atrial fibrillation A jonatan Mayorga, [facility] 01/06/2021 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 01/06/2021 N18.31 Chronic kidney disease, stage 3a Anna Hoff M.D. 01/06/2021 I50.32 Chronic diastolic (congestive) h eart failure Anna Hoff M.D. 01/06/2021 C61 Malignant neoplasm of prostate Clark Hoff M.D. 01/06/2021 E66.8 Other obesity Anna garcia M.D. 01/06/2021 I48.0 Paroxysmal atrial fibrillation Clark Hoff M.D. 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 01/06/2021 J44.9 Chronic obstructive pulmonary di sease, unspecified Anna Hoff M.D. 01/06/2021 K74.60 Unspecified cirrhosis of liver Clark Hfof M.D. 01/06/2021 D47.2 Monoclonal gammopathy Anna acuña M.D. 01/06/2021 K21.9 Gastro-esophageal reflux disease without esophagitis Anna Hoff M.D. 01/06/2021 Z68.33 Body mass index [BMI] 33.0-33.9, adult Anna Hoff M.D. Plan of Treatment Future Appointment(s):* 08/03/2021 2:00 pm - [facility] at [facility] * 09/06/2021 3:15 pm - Anna Hoff M.D. at [facility] 06/06/2021 - Anna Hoff M.D.* D47.2 Monoclonal gammopathy * I48.0 Paroxysmal atrial fibrillation * Z79.01 shelter (current) use of anticoagulants * I25.10 Atherosclerotic heart disease of [place] coronary artery without angina pectoris * I13.0 [...]
--- OUTSIDE RECORDS SUMMARY | 2021-08-25 17:26 | CCD | Continuity of Care Document ---
Author Author Tor SHEPPARD MD Organization Unknown Address [address] [place] [address] Phone [phone] Care Team Providers Care Stock Feeder Name Role Phone Anna Garcia M.D. [facility] [[email or web address]]M [phone] Problems Active Problems Provider Date Essential hypertension Connor Esteban M.D. Onset: 3 Hypertrophy of breast Connor Esteban M.D. Onset: 03/19/2013 Chronic obstructive lung disease Misael Sheppard MD Onset: 11/11/2015 Arteriosclerosis of arterial coronary artery bypass graft La wrnancy Sheppard MD Onset: 06/05/2011 Pulmonary emphysema Misael Sheppard MD Onset: 06/05/2011 Emphysematous bronchitis Misael Sheppard MD Onset: 06/05/20 11 Obesity Misael Sheppard MD Onset: 06/06/2011 Ex-smoker Misael Sheppard MD Onset: 06/27/2011 Disturbance of consciousness Misael Sheppard MD Onset: 06/07 Obstructive sleep apnea syndrome Misael Sheppard MD Onset: 12/12/2012 Body mass index 30+ - obesity Misael Sheppard MD Onset: 10/2013 Allergic rhinitis Misael Sheppard MD Onset: 09/24/2014 Dyspnea [facility] Onset: 06/16/2015 Centriacinar emphysema Misael Sheppard MD Onset: 11/11/2015 Social History Type Date Description Comments Sex Unknown ETOH Use Denies alcohol use Recreational Drug Use Denies Drug Use Tobacco Use Start: Unknown End: Unknown Patient is a former smoker 1 PPD X35 YRS Tobacco Use Start: Unknown Quit 1988 Smoking Status Reviewed: 07/18/21 Quit 1988 Allergies, Adverse Reactions, Alerts Description No Known Drug Allergies Medications Active Medications SIG Qnty Indications Ordering Provide r Date Mucinex 600mg Tablets ER 12HR take one by mouth every 12 hours. 60tabs Misael Sheppard MD 2019 Albuterol Sulfate (2 .5mg/3ML) 0.083% Nebulizer 1 vial four times a day as needed 540units Rere Sheppard MD 12/17/2017 Crestor 20mg Tablets 1 po qd Unknown Advair HFA 115-21mcg/Act Aerosol use 2 inhalations twice a day emergency replacement 12gm La ilsa Sheppard MD Nexium 40mg Capsules DR 1 po every other night 30caps Unknown Restasis 0.05% Emulsion bid 60units Unknown Warfarin Sodium 3mg Tablets 2 PO every day @ 5pm., 2 Days A Week Is 3MG Unknown Furosemide 40mg Tablets 1 by mouth every day 30tabs Unknown Metoprolol Succinate ER 50mg Tablets ER 24HR every day Unknown Proair HFA 108(90Base) mcg/Act Aer osol 2 puffs four times a day as needed Unknown Neurontin 600mg Tablets 1 by mouth qam/2qpm Unknown CPAP 12CM [place] Unknown Immunizations CPT Code Status Date Vaccine Lot # [id number] Given 07/29/2014 Influenza Virus Split 3 Yrs And Above For Intramuscular Use Q2036 Given 08/22/2012 Influenza Vaccine 3 Years Of Age Or Older (Flulaval) 55960 Given 08/24/2010 Influenza Virus Split 3 Yrs And Above For Intramuscular Use 68001 Given 06/15/2009 Pneumococcal PPSV23 Vital Signs Date Vital Result Comment 07/18/2021 1:18pm BP Systolic 108 mmHg BP Diastolic 70 mmHg Heart Rate 65 /min O2 % BldC Oximetry 97 % Room Air Height 68 inches 5'8" Weight 202.00 lb BMI (Body Mass Index) 30.7 kg/m2 [place] Body Weight 154 lb Weight 91.627 kg BSA (Body Surface Area) 2.05 m2 01/12/2021 2:03pm BP Systolic 130 mmHg BP Diastolic 80 mmHg Heart Rate 80 /min O2 % BldC Oximetry 96 % Room Air Height 68 inches 5'8" Weight 216.00 lb BMI (Body Mass Index) 32.8 kg/m2 [place] Body Weight 154 lb Weight 97.978 kg BSA (Body Surface Area) 2.11 m2 Results Description No Information Available Procedures Date Code Description Status 07/18/2021 02939 Office/Outpatient Established Mo d MDM 30-39 Min Completed 07/18/2021 39879 Spirometry Completed Medical Devices Description No Information Available Encounters Type Date Location Provider Dx Diagnosis Office Visit 07/18/2021 1:15p [facility] Pulmonary/Thoracic Rere Sheppard MD J44.9 Chronic obstructive pulmonary disease, u nspecified G47.33 Obstructive sleep apnea (michael lt) (pediatric) Z79.01 intermediate (current) use of a nticoagulants Z79.899 [facility] (current[facility] dr jadon therapy Assessments Date Code Description Provider 07/18/2021 J44.9 Chronic obstructive pulmonary di sease, unspecified Misael Sheppard MD 07/18/2021 G47.33 Obstructive sleep apnea (adult) (pediatric) Misael Sheppard MD 07/18/2021 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 Misael Sheppard MD 07/18/2021 Z79.899 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 Misael Sheppard MD 01/28/2021 J44.9 Chronic obstructive pulmonary di sease, unspecified Misael Sheppard MD 01/28/2021 G47.33 Obstructive sleep apnea (adult) (pediatric) Misael Sheppard MD 01/28/2021 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 Misael Sheppard MD 01/28/2021 Z79.899 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 He is up to date on not only medications but masks, filters and supplies. ~ Certainly, at his age, I believe that following his myeloma if it is otherwise asymptomatic, is reasonable, but he follows both with the [facility] here, as well as with [facility].~ He keeps his device clean. ~ He is to call here with exacerbations of his underlying lung disease.~ If he is doing well, I will see him in a minimum of 6 months with spirometry, oximetry and flow volume loop for his obstructive disease or sooner if problems arise with which we can be of assistance. * Follow up:* Follow up in six months with spirometry, oximetry and flow volume loop. Functional Status Description No Information Available Mental Status Description No Information Available Referrals Description No Information Available
--- OUTSIDE RECORDS SUMMARY | 2021-08-25 17:26 | CCD | Continuity of Care Document ---
Author Author Tor Hoff M.D. Organization Unknown Address [address] [facility] [address] [place] [address] Phone [phone] Care Team Providers Care Quality Worker Name Role Phone Misael Sheppard MD AUTM [phone] Vitor Mendez MD AUTM [phone] Anna Hoff MD AUTM [phone] Minna Richards MD AUTM [phone] Lory Vasquez MD AUTM [phone] Juan Thompson MD AUTM [phone] Bull Cobian MD AUTM [phone] Nicholas Spring MD AUTM [phone] Anatoliy Mosley MD AUTM [phone] Gayatri Dennison MD AUTM [phone] Aki Nunes MD AUTM [phone] Problems Active Problems Provider Date Benign essential hypertension Anna Hoff M.D. Onset: 07/03/2011 Pure hypercholesterolemia Anna Hoff M.D. Onset: Indigestion Anna Hoff M.D. Onset: 1 Difficulty breathing Anna Hoff M.D. Onset: 07/03/20 11 Malignant tumor of prostate Anan Hoff M.D. Onset: 0 07/03/2011 Essential hypertension [...] es ER 1 by mouth every day nephrolo Anna Hoff M.D. 09/03 Pain Relieving Lidocaine [...] Hoff M.D. 06/19/20 19 Furosemide 40mg Tablets take 1 tablet po qam and 1 po prn 180tabs Anna Hoff M.D. 019 Ventolin HFA 108(90Base) mcg/Act A erosol 2 [...] Anna Hoff M.D. 03/16/20 10 Saline Nasal [place] 0.65% Solution prn Anna Hoff M.D. 03/16/2010 [...] CPT Code Status Date Vaccine Lot # [id number] Given 03/09/2021 Tetanus/Diptheria(Td)Toxoids Preservative Free [id number] U-Flu Given 09/02/2019 Influenza,Unspecified U-Flu Given 08/26/2018 Influenza,Unspecified U-Flu Given 11/18/2017 Influenza,Unspecified U-Td Given 12/06/2009 Td(Adult)(Tetanus, Diphtheri a) unspecified [id number] Given 09/05/2004 Influenza Virus Vaccine [id number] Given 08/18/1997 Influenza Virus Vaccine [id number] Refused 09/11/2017 Influenza Vaccin e Quadrivalent Preser/Antibiotic Free Im Use Vital Signs Date Vital Result Comment 06/06/2021 11:39am BP Systolic 126 mmHg RT Arm BP Diastolic 58 mmHg RT Arm Heart Rate 92 /min Height 67.75 inches 5'7.75" Weight 211.50 lb BMI (Body Mass Index) 32.4 kg/m2 05/19/2021 2:53pm Weight 209.00 lb Results Test Acquired Date Facility Test Result H/L Range Note Laboratory test finding 05/19/2021 Wi-Inr Inr 2.5 CBC With Differential 04/29/[address] [address] [phone] White Blood Count 4.5 10 Normal 4.0-10.0 [...] 36.0-66.0 Lymph % 26.5 % Normal 24.0-44.0 [place] % 9.4 % High 2.0-8.0 Eos % 2.2 % Normal 0.0-3.0 Baso % 0.7 % Normal 0.0-1.0 Immature Granulocyte % 0.4 % Normal 0-3.0 Nucleated Red Blood Cell % 0.0 % Normal 0-0 Neutrophils # 2.7 10 Normal 1.5-8.5 Lymph # 1.2 10 Low 1.5-5.0 [place] # 0.4 10 Normal 0.0-0.8 Eos # 0.1 10 Normal 0.0-0.5 Baso # 0.0 10 Normal 0.0-0.2 Laboratory test finding 04/29/[address] [address] [phone] Immature Platelet Fraction 16.2 % High 0.0-1 0.91 Free Destin & Lambda LT Chains 04/29/[address] [address] [phone] Free Destin Light Chains Serum 192.4 mg/L High 3. 3-19.4 Free Lambda Light Chains Serum 13.3 mg/L Normal 5.7-26.3 Destin/Lambda Ratio Serum 14.47 High 0.26-1.65 1 Comprehensive Metabolic Profil 04/29/[address] [address] [phone] Glucose, Fasting 100 mg/dL Normal 70-100 Blood Urea Nitrogen 12 mg/dL Normal 7-18 Creatinine For GFR 0.83 mg/dL Normal 0.70-1.30 Glomerular Filtration Rate > 60.0 Normal >35 2 Sodium Level 139 mEq/L Normal 136-145 Potassium [...] 0.6 Normal Total Iron Binding Capacit 04/29/[address] [address] [phone] Iron (Fe) 70 g/dL Normal 65-175 Total Iron Binding Capacity 286 g/dL Normal 250-450 Percent Saturation 24.5 % Normal 19.7-50.0 Laboratory test finding 04/29/[address] [address] [phone] Immunoglobulin A 111.0 mg/dL Normal 70-400 Immunoglobulin G 2550 mg/dL High 681-1648 Immunoglobulin M 26.9 mg/dL Low 40-230 Serum Protein Electrophoresis 04/29/[address] [address] [phone] Albumin % 44.3 % Low 55.8-66.1 Lchfl-3-Cizznnpu % 3.5 % Normal 2.9-4.9 Idxlj-7-Xhafebywg % 9.7 % Normal 7.1-11.8 Jyjw-5-Rinqxeypo % 34.0 % High 4.7-7.2 Kohx-3-Dziqfrdfh % 4.0 % Normal 3.2-6.5 Gamma Globulin % 4.5 % Low 11.1-18.8 Albumin 3.37 GM/DL Normal 3.29-5.55 Fdqhw-7-Sffppldpg 0.27 GM/DL Normal 0.17-0.41 Nznju-1-Hlrkkkxnv 0.74 GM/DL Normal 0.42-0.99 Ajvk-8-Zyzrbbekx 2.58 GM/DL High 0.28-0.60 Qddq-9-Ltlmzuhjw 0.30 GM/DL Normal 0.19-0.55 Gamma Globulins 0.34 GM/DL Low 0.65-1.58 Total Protein 7.6 GM/DL Normal 6.4-8.2 Spep Interpretation SEE COMMENT Normal 3 Spep Pathologist Review REV'D BY Jasmyne WILSON Normal Laboratory test finding 04/29/2021 [facility] [address] [place] [address] [phone] Ferritin 98 NG/ML Normal 26-388 Cardiac Marker Panel 04/22/2021 [facility] enter [address] [place] [address] [phone] CPK Creatine Phosphokinase 65 U/L Normal 39-30 8 CK-MB Value Mass 1.2 NG/ML Normal <3.6 MB/CK Relative Index 1.85 Normal < Or =4 4 Troponin I 0.02 NG/ML Normal < 0.10 5 CBC With Differential 04/21/[address] [address] [phone] White Blood Count 3.9 10 Low 4.0-10.0 [...] % 0.0 % Normal 0-0 Differential 04/21/2021 [facility] Ce nter [address] [place] [address] [phone] Neutrophils 56 % Normal 28-66 Lymphocytes 23 % Normal 16-44 Monocytes 12 % High 0-5 Eosinophils 3 % Normal 0-3 Basophils 1 % Normal 0-1 Atypical Lymph 5 % Normal 0-5 Anisocytosis 1+ Normal Laboratory test finding 04/21/2021 [facility] [address] [place] [address] [phone] Platelet Estimate MARKED DECREASE Normal Normal Immature Platelet Fraction 11.6 % High 0.0-10.91 Cardiac Marker Panel 04/21/2021 [facility] enter [address] [place] [address] [phone] CPK Creatine Phosphokinase 86 U/L Normal 39-30 8 CK-MB Value Mass 1.8 NG/ML Normal <3.6 MB/CK Relative Index 2.09 Normal < Or =4 6 Troponin I < 0.02 NG/ML Normal < 0.10 7 Liver Profile 04/21/2021 [facility] nter [address] [place] [address] [phone] Ast/Sgot 31 U/L Normal 7-37 Alt/SGPT 17 U/L Normal 12-78 Alkaline Phosphatase 62 U/L Normal 45-117 Bilirubin,Total 0.9 mg/dL Normal 0.2-1.0 Bilirubin,Direct 0.3 mg/dL High 0.0-0.2 Total Protein 8.2 GM/DL Normal 6.4-8.2 Albumin 3.0 GM/DL Low 3.2-5.2 Albumin/Globulin Ratio 0.6 Normal Basic Metabolic Profile 04/21/[address] [address] [phone] Glucose, Fasting 80 mg/dL Normal 70-100 Blood Urea Nitrogen 12 mg/dL Normal 7-18 Creatinine For GFR 0.81 mg/dL Normal 0.70-1.30 Glomerular Filtration Rate > 60.0 Normal >35 8 Sodium Level 141 mEq/L Normal 136-145 Potassium Serum 3.6 mEq/L Normal 3.5-5.1 Chloride Level 108 mEq/L High 98-107 Carbon Dioxide Level 26 mEq/L Normal 21-32 Anion Gap 7 mEq/L Low 8-16 Calcium Level 9.8 mg/dL Normal 8.8-10.2 Laboratory test finding 04/21/[address] [address] [phone] Lipase 166 U/L Normal 73-393 Thyroid Stimulating Hormone 3.810 uIU/ML High 0.358-3.740 Free T4 1.12 ng/dL Normal 0.76-1.46 Istat Chem8+ Panel 04/20/2021 [facility] nter [address] [place], [place] [address] [phone] iSTAT HCT 39.0 % Normal 38.0-51.0 iSTAT Glucose 96 mg/dL Normal 70-105 iSTAT Sodium 142 mEq/L Normal 136-145 iSTAT Potassium 3.8 mEq/L Normal 3.5-5.1 iSTAT CA++ 4.6 mg/dL Normal 4.5-5.3 iSTAT Chloride 103 mEq/L Normal 98-109 iSTAT Co2 24.0 MM/L Normal 23.0-27.0 iSTAT BUN 11 mg/dL Normal 8-26 iSTAT Creatinine 0.9 mg/dL Normal 0.6-1.3 Prothrombin Time/Inr 04/20/2021 [facility] enter [address] [place] [address] [phone] Prothrombin Time 24.7 seconds High 12.5-14.3 Inr 2.17 Normal 9 Laboratory test finding 04/20/[address] [address] [phone] Immature Platelet Fraction 11.3 % High 0.0-1 0.91 Laboratory test finding 04/20/[address] [address] [phone] iSTAT Troponin 0.01 NG/ML Normal 0.00-0.08 Laboratory test finding 04/20/[address] [address] [phone] Lipase 119 U/L Normal 73-393 Liver Profile 04/20/2021 [facility] nter [address] [place] [address] [phone] Ast/Sgot 44 U/L High 7-37 10 Alt/SGPT 16 U/L Normal 12-78 Alkaline Phosphatase 56 U/L Normal 45-117 Bilirubin,Total 0.8 mg/dL Normal 0.2-1.0 Bilirubin,Direct < 0.1 mg/dL Normal 0.0-0.2 Total Protein 7.8 GM/DL Normal 6.4-8.2 Albumin 2.6 GM/DL Low 3.2-5.2 Albumin/Globulin Ratio 0.5 Normal CBC With Differential 04/20/2021 [facility] [address] [place], [place] [address] [phone] White Blood Count 4.0 10 Normal 4.0-10.0 [...] 36.0-66.0 Lymph % 30.7 % Normal 24.0-44.0 [place] % 12.3 % High 2.0-8.0 Eos % 3.8 % High 0.0-3.0 Baso % 0.8 % Normal 0.0-1.0 Immature Granulocyte % 0.8 % Normal 0-3.0 Nucleated Red Blood Cell % 0.0 % Normal 0-0 Neutrophils # 2.1 10 Normal 1.5-8.5 Lymph # 1.2 10 Low 1.5-5.0 [place] # 0.5 10 Normal 0.0-0.8 Eos # 0.2 10 Normal 0.0-0.5 Baso # 0.0 10 Normal 0.0-0.2 Laboratory test finding 04/05/2021 Wi-Inr Inr 2.2 Complete Blood Count 03/08/2021 [employer]: [place] [address] [phone] WBC 5.4 x10*3/UL 4.1 - 10.9 RBC 4.05 x10*6/UL Low 4.20 - 6.30 Hemoglobin 12.7 g/dL 12.0 - 18.0 Hematocrit 38.3 % 37.0 - 51.0 MCV 94.5 fL 80.0 - 97.0 MCH 31.3 pg 26.0 - 32.0 MCHC 33.1 g/dL 31.0 - 38.0 RDW 14.6 % High 11.6 - 13.7 PLT 86 x10*3/UL Low 140 - 440 11 MPV 10.2 FL 7.8 - 11.0 Lymph % 25.2 % 10.0 - 58.5 Mid % 6.6 % 1.7 - 9.3 Neut % 68.2 % 37.0 - 92.0 Lymph # 1.3 x10*3/UL 0.6 - 4.1 Mid # 0.4 x10*3/UL 0.1 - 0.6 Neut # 3.7 x10*3/UL 2.0 - 7.8 Comprehensive Chem Profile 03/08/2021 [employer]atterki[employer] Fournier [employer] Grade Three: [place] [address] [phone] Glucose 133 mg/dL High 74 - 99 12 BUN 17 mg/dL 7 - 18 Creatinine [...] mL/min >60 GFR >= 60 mL/min >60 13 Laboratory test finding 03/08/2021 [employer] [employer] julio [employer] Three: [place] [address] [phone] Thyroid Stimulating Hormone 2.94 uIU/mL 0.3 6 - 3.74 Laboratory test finding 03/03/2021 Wi-Inr Inr 2.3 Laboratory test finding 01/31/2021 Wi-Inr Inr 2.8 Serum Protein Electrophoresis 01/17/[address] [id number] [phone] Albumin % 41.9 % Low 55.8-66.1 Upsch-2-Tjuppcqm % 4.2 % Normal 2.9-4.9 Gywfr-6-Smfejelxr % 10.6 % Normal 7.1-11.8 Fvki-1-Fleeaqqls % 32.5 % High 4.7-7.2 Bhpl-3-Kjgtjbnhj % 5.3 % Normal 3.2-6.5 Gamma Globulin % 5.5 % Low 11.1-18.8 Albumin 3.35 GM/DL Normal 3.29-5.55 Imqsu-7-Mkylvwkpz 0.34 GM/DL Normal 0.17-0.41 Fnpck-3-Izjdtmgly 0.85 GM/DL Normal 0.42-0.99 Gyiv-8-Shvxqbbzl 2.60 GM/DL High 0.28-0.60 Qqje-0-Aakozcxej 0.42 GM/DL Normal 0.19-0.55 Gamma Globulins 0.44 GM/DL Low 0.65-1.58 Total Protein 8.0 GM/DL Normal 6.4-8.2 Spep Interpretation SEE COMMENT Normal 14 Spep Pathologist Review REV'D BY O ADJAP <SEE NOTE> Normal 15 Laboratory test finding 01/17/[address] [address] [phone] Immature Platelet Fraction 11.2 % High 0.0-1 0.91 CBC With Differential 01/17/[address] [address] [phone] White Blood Count 5.4 10 Normal 4.0-10.0 [...] 36.0-66.0 Lymph % 18.5 % Low 24.0-44.0 [place] % 10.7 % High 2.0-8.0 Eos % 3.2 % High 0.0-3.0 Baso % 0.6 % Normal 0.0-1.0 Immature Granulocyte % 0.4 % Normal 0-3.0 Nucleated Red Blood Cell % 0.0 % Normal 0-0 Neutrophils # 3.6 10 Normal 1.5-8.5 Lymph # 1.0 10 Low 1.5-5.0 [place] # 0.6 10 Normal 0.0-0.8 Eos # 0.2 10 Normal 0.0-0.5 Baso # 0.0 10 Normal 0.0-0.2 Laboratory test finding 01/17/[address] [address] [phone] Ferritin 84 NG/ML Normal 26-388 Vitamin B12 & Folate 01/17/2021 [facility] enter [address] [place], [place] [address] [phone] Vitamin B12 Level 488 pg/mL Normal 16 Folate 14.2 NG/ML Normal 17 Immunoglobulin G,A,M 01/17/2021 [facility] enter [address] [place] [address] [phone] Immunoglobulin A 163.0 mg/dL Normal 70-400 Immunoglobulin G 2750 mg/dL High [phone] Immunoglobulin M 27.5 mg/dL Low 40-230 Total Iron Binding Capacit 01/17/[address] [address] [phone] Iron (Fe) 79 g/dL Normal 65-175 Total Iron Binding Capacity 330 g/dL Normal 250-450 Percent Saturation 23.9 % Normal 19.7-50.0 Comprehensive Metabolic Profil 01/17/[address] [address] [phone] Glucose, Fasting 93 mg/dL Normal 70-100 Blood Urea Nitrogen 20 mg/dL High 7-18 Creatinine For GFR 0.88 mg/dL Normal 0.70-1.30 Glomerular Filtration Rate > 60.0 Normal >35 1 8 Sodium Level 140 mEq/L Normal 136-145 Potassium [...] Low 3.2-5.2 Albumin/Globulin Ratio 0.6 Normal Free Destin & Lambda LT Chains 01/17/2021 [address] [place], [place] [address] [phone] Free Destin Light Chains Serum 207.8 mg/L High 3. 3-19.4 Free Lambda Light Chains Serum 16.3 mg/L Normal 5.7-26.3 Destin/Lambda Ratio Serum 12.75 High 0.26-1.65 19 Laboratory test finding 01/13/2021 Wi-Inr Inr 1.8 Complete Blood Count 01/05/2021 [employer]: Dr Peter Cervantes [place], [place] [address] [phone] WBC 4.7 x10*3/UL 4.1 - 10.9 20 RBC 3.43 x10*6/UL Low 4.20 - 6.30 Hemoglobin 11.1 g/dL Low 12.0 - 18.0 Hematocrit 33.5 % Low 37.0 - 51.0 MCV 97.8 fL High 80.0 - 97.0 MCH 32.5 pg High 26.0 - 32.0 MCHC 33.2 g/dL 31.0 - 38.0 RDW 15.6 % High 11.6 - 13.7 PLT 61 x10*3/UL Low 140 - 440 MPV 11.0 FL 7.8 - 11.0 Lymph % 23.1 % 10.0 - 58.5 Mid % 8.1 % 1.7 - 9.3 Neut % 68.8 % 37.0 - 92.0 Lymph # 1.1 x10*3/UL 0.6 - 4.1 Mid # 0.4 x10*3/UL 0.1 - 0.6 Neut # 3.2 x10*3/UL 2.0 - 7.8 Laboratory test finding 01/05/2021 [employer] Narendra kim [employer] Three: [place] [address] [phone] Creatine Kinase(CK) 91 U/L 39 - 308 Comprehensive Chem Profile 01/05/2021 [employer] Int dl [employer] Grade Three: [place] [address] [phone] Glucose 91 mg/dL 74 - 99 21 BUN 23 mg/dL High 7 - 18 Creatinine 1.2 mg/dL 0.6 - 1.3 Sodium 142 mEq/L 136 - 145 Potassium 4.1 mEq/L 3.5 - 5.1 Chloride 105 mEq/L 98 - 107 Carbon Dioxide 30 mEq/L 21 - 32 Calcium 9.3 mg/dL 8.5 - 10.1 Alk. Phosphatase 70 mg/dL 46 - 116 Total Bilirubin 0.5 mg/dL 0.2 - 1.0 Ast (Sgot) 23 U/L 15 - 37 Alt (SGPT) 17 U/L 12 - 78 Albumin 3.0 g/dL Low 3.4 - 5.0 22 Total Protein 8.4 g/dL High 6.4 - 8.2 A/G Ratio 0.56 CALC Low 1.00 - 1.90 GFR 58 mL/min Low >60 GFR >= 60 mL/min >60 23 Lipid Profile 01/05/2021 [employer] Yosi [employer] Three: [place] [address] [phone] Cholesterol 142 mg/dL 131 - 200 Triglycerides 67 mg/dL 30 - 150 HDL Cholesterol 53 mg/dL 35 - 60 LDL (Calculated) 76 CALC 50 - 159 Laboratory test finding 01/05/2021 [employer] Narendra kim [employer] Three: [place] [address] [phone] Thyroid Stimulating Hormone 3.99 uIU/mL High 0.3 6 - 3.74 Laboratory test finding 01/05/2021 [employer] Narendra kim kiara [employer] Grade Three: [place] [address] [phone] PSA <0.13 ng/mL <4.00 24 Laboratory test finding 01/05/2021 Wi-Inr Inr 3.2 Laboratory test finding 12/08/2020 Wi-Inr Inr 2.6 1 Performed at: RN - [facility] [address] [id number] [employer]: Keyonna Fraser MD, Phone: [phone] 2 Units are mL/min/1.73 m2 Chronic Kidney Disease Staging per NKF: Stage I & II GFR >=60 Normal to Mildly Decreased Stage III GFR 30-59 Moderately Decreased Stage IV GFR 15-29 Severely Decreased Stage V GFR <15 Very Little GFR Left ESRD GFR <15 on TESTING TECH 3 M-SPIKE NOTED IN BETA 1 FAWAD ON. CONCENTRATION = 2.37 GM/DL 4 DIAGNOSIS CRITERIA MMB ng/ml Relative Index (RI) NON-AMI < or = 5 N/A PRIETO ZONE > 5 < or = 4 AMI > 5 > 4 5 Troponin I Reference Interva l for Siemens Calion LOCI: 99th Percentile= 0.00-0.045 ng/ml Risk Stratification: <= 0.10 ng/ml Decreased Risk for Adverse Clinical Events. 0.10-1.50 ng/ml Increased Risk for Adv erse Clinical Events. Evaluation of additional criterion and/or repeat testing in 2-6 hours is suggested to rule out myocardial damage. >= 1.50 ng/ml Indicative of Myocardial Injury. 6 DIAGNOSIS CRITERIA MMB ng/ml Relative Index (RI) NON-AMI < or = 5 N/A PRIETO ZONE > 5 < or = 4 AMI > 5 > 4 7 Troponin I Reference Interva l for Siemens [place] LOCI: 99th Percentile= 0.00-0.045 ng/ml Risk Stratification: <= 0.10 ng/ml Decreased Risk for Adverse Clinical Events. 0.10-1.50 ng/ml Increased Risk for Adv erse Clinical Events. Evaluation of additional criterion and/or repeat testing in 2-6 hours is suggested to rule out myocardial damage. >= 1.50 ng/ml Indicative of Myocardial Injury. 8 Units are mL/min/1.73 m2 Chronic Kidney Disease Staging per NKF: Stage I & II GFR >=60 Normal to Mildly Decreased Stage III GFR 30-59 Moderately Decreased Stage IV GFR 15-29 Severely Decreased Stage V GFR <15 Very Little GFR Left ESRD GFR <15 on TESTING TECH 9 THERAPUTIC HUMAN INR VALUES INDICATIONS NORMAL RANGES PROPHYLAXIS/TREATMENT OF: VENOUS THROMBOSIS 2.0-3.0 PULMONARY EMBOLISM 2.0-3.0 PREVENTION OF SYSTEMIC EMBOLISM FROM: TISSUE HEART VALVES 2.0-3.0 ACUTE MYOCARDIAL INFARCTION 2.0-3.0 VALVULAR HEART DISEASE 2.0-3.0 ATRIAL FIBRILLATION 2.0-3.0 MECHANICAL VALVES(HIGH RISK) 2.5-3.5 RECURRENT MYOCARDIAL INFARCTION 2.5-3.5 10 Testing was performed on a S LIGHTLY hemolyzed specimen. Suggest recollection of specimen for more accurate test results. 11 NOTE: RESULT VERIFIED. 12 100-125 mg/dL PRE-DIABET ES/FASTING >126 mg/dL DIABETES/FASTING 13 CHRONIC KIDNEY DISEASE STAGI NG PER NKF STAGE I & II GFR >= 60 NORMAL TO MILDLY DECREASED STAGE III GFR 30-59 MODERATELY DECREASED STAGE IV GFR 15-29 SEVERELY DECREASED STAGE V GFR <15 VERY LITTLE GFR LEFT ESRD GFR <15 ON TESTING TECH 14 M-SPIKE NOTED IN BETA 1 FAWAD ON. CONCENTRATION = 2.42 GM/DL 15 REV'D BY Vicente ENGLISH 16 VITAMIN B12 NORMAL RANGE NORMAL 247 - 911 PG/ML INDETERMINATE 211 - 246 PG/ML DEFICIENT LESS THAN 211 PG/ML 17 FOLATE NORMAL RANGE NORMAL GREATER THAN 5.4 NG/ML INDETERMINATE 3.4-5.4 NG/ML DEFICIENT LESS THAN 3.4 NG/ML 18 Units are mL/min/1.73 m2 Chronic Kidney Disease Staging per NKF: Stage I & II GFR >=60 Normal to Mildly Decreased Stage III GFR 30-59 Moderately Decreased Stage IV GFR 15-29 Severely Decreased Stage V GFR <15 Very Little GFR Left ESRD GFR <15 on TESTING TECH 19 Performed at: RN - [facility] [address] [id number] [employer]: Keyonna Fraser MD, Phone: [phone] NOTE: CBC VERIFIED 21 100-125 mg/dL PRE-DIABET ES/FASTING >126 mg/dL DIABETES/FASTING 22 NOTE: ALBUMIN,T.PROTEIN VERIFIED 23 CHRONIC KIDNEY DISEASE STAGI NG PER NKF STAGE I & II GFR >= 60 NORMAL TO MILDLY DECREASED STAGE III GFR 30-59 MODERATELY DECREASED STAGE IV GFR 15-29 SEVERELY DECREASED STAGE V GFR <15 VERY LITTLE GFR LEFT ESRD GFR <15 ON TESTING TECH 24 This assay was performed on the Siemens Dimension EXL using the B- Galactosidase/CPRG methodology and should not be compared interchangeably with other methods. The PSA should not be used alone as a screening test for the presence or absence of malignant disease. Procedures Date Code Description Status 03/09/2021 06353 Est Prevent Med (65Yrs&Ovr) Comp leted 01/06/2021 48688 Office/Outpatient Established Mo d MDM 30-39 Min Completed 04/15/2019 [id number] Colonoscopy Completed 07/02/2017 [id number] Colonoscopy Completed 05/23/2016 [id number] Diabetic Retinal Eye Exam Comple carmen 05/18/2016 [id number] Colonoscopy Completed 01/30/2013 [id number] Mammogram Completed 05/02/2012 [id number] Colonoscopy Completed Medical Devices Description No Information Available Encounters Type Date Location Provider Dx Diagnosis Office Visit 03/09/2021 2:30p [facility] Internjulio PEulogioCEulogio Hoff M.D. Z00.00 Encntr for general adult med ical exam w/o abnormal findings I48.0 Paroxysmal atrial fibrillati on Z79.01 group home (current) use of a nticoagulants I25.10 Athscl [...] ease without esophagitis Office Visit 01/06/2021 2:15p [facility] Internjulio P.CEulogio Hoff M.D. 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 D47.2 Monoclonal gammopathy K21.9 Gastro-esophageal reflux dis ease without esophagitis Z68.33 Body mass index [BMI] 33.0-3 3.9, adult Assessments Date Code Description Provider 05/19/2021 I48.0 Paroxysmal atrial fibrillation A jonatan Mayorga [facility] 05/19/2021 I48.0 Paroxysmal atrial fibrillation P rotime 05/19/2021 Z79.01 [employer] intermediary (current) use of antic oagulants Lupe Mayorga [facility] 05/19/2021 Z79.01 group home (current) use of antic oagulants Protime 05/19/2021 Z51.81 Encounter for therapeutic drug l evel monitoring Lupe Mayorga [facility] 05/19/2021 Z51.81 Encounter for therapeutic drug l evel monitoring Protime 05/05/2021 Z51.81 Encounter for therapeutic drug l evel monitoring Lupe Mayorga [facility] 05/05/2021 Z51.81 Encounter for therapeutic drug l evel monitoring Protime 05/05/2021 Z79.01 group home (current) use of antic oagulants Lupe Mayorga [facility] 05/05/2021 Z79.01 group home (current) use of antic oagulants Protime 05/05/2021 I48.0 Paroxysmal atrial fibrillation A jonatan Mayorga [facility] 05/05/2021 I48.0 Paroxysmal atrial fibrillation P rotime 04/05/2021 Z51.81 Encounter for therapeutic drug l evel monitoring Lupe Mayorga [facility] 04/05/2021 Z51.81 Encounter for therapeutic drug l evel monitoring Protime 04/05/2021 Z79.01 group home (current) use of antic oagulants Lupe Mayorga [facility] 04/05/2021 Z79.01 group home (current) use of antic oagulants Protime 04/05/2021 I48.0 Paroxysmal atrial fibrillation A nn Lizy Polk, SERVER PROGRAMMER 04/05/2021 I48.0 Paroxysmal atrial fibrillation P rotime 03/09/2021 Z00.00 Encounter for genera l adult medical examination without abnormal findings Anna Hoff M.D. 03/09/2021 I48.0 Paroxysmal atrial fibrillation Clark Hoff M.D. 03/09/2021 Z79.01 group home (current) use of antic oagulants Anna Hoff M.D. 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 03/08/2021 Z79.01 [employer] transportation intermediary (current) use of antic oagulants Anna Hoff M.D. 03/08/2021 Z79.01 group home (current) use of antic oagulants Lab Schedule 03/08/2021 I48.0 Paroxysmal atrial fibrillation J kathleen Hoff M.D. 03/08/2021 I48.0 Paroxysmal atrial fibrillation [...] therapeutic drug l evel monitoring Lupe Mayorga, [facility] 03/03/2021 Z51.81 Encounter for therapeutic drug l evel monitoring Protime 03/03/2021 Z79.01 ocean transportation intermediary (current) use of antic oagulants Lupe Mayorga, [facility] 03/03/2021 Z79.01 ocean transportation intermediary (current) use of antic oagulants Protime 03/03/2021 I48.0 Paroxysmal atrial fibrillation A jonatan Mayorga, [facility] 03/03/2021 I48.0 Paroxysmal atrial fibrillation P rotime 01/31/2021 Z51.81 Encounter for therapeutic drug l evel monitoring Lupe Mayorga, [facility] 01/31/2021 Z51.81 Encounter for therapeutic drug l evel monitoring Protime 01/31/2021 I48.0 Paroxysmal atrial fibrillation A jonatan Mayorga, [facility] 01/31/2021 I48.0 Paroxysmal atrial fibrillation P rotime 01/31/2021 Z79.01 group home (current) use of antic oagulants Lupe Mayorga [facility] 01/31/2021 Z79.01 ocean transportation intermediary (current) use of antic oagulants Protime 01/13/2021 Z51.81 Encounter for therapeutic drug l evel monitoring Lupe Mayorga, [facility] 01/13/2021 I48.0 Paroxysmal atrial fibrillation P rotime 01/13/2021 Z79.01 ocean transportation intermediary (current) use of antic oagulants Lupe Mayorga, [facility] 01/13/2021 Z51.81 Encounter for therapeutic drug l evel monitoring Protime 01/13/2021 I48.0 Paroxysmal atrial fibrillation A nn Lizy Polk, [facility] 01/06/2021 I13.0 Hypertensive heart a [...] atrial fibrillation Clark Hoff M.D. 01/06/2021 Z79.01 ocean transportation intermediary (current) use of antic oagulants Anna Hoff M.D. 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 01/06/2021 J44.9 Chronic obstructive pulmonary di sease, unspecified Anna Hoff M.D. 01/06/2021 K74.60 Unspecified cirrhosis of liver Clark Hoff M.D. 01/06/2021 D47.2 Monoclonal gammopathy Anna acuña M.D. 01/06/2021 K21.9 Gastro-esophageal reflux disease without esophagitis Anna Hoff M.D. 01/06/2021 Z68.33 Body mass index [BMI] 33.0-33.9, adult Anna Hoff M.D. 01/05/2021 Z51.81 Encounter for therapeutic drug l evel monitoring Lupe Mayorga, [facility] 01/05/2021 I48.0 Paroxysmal atrial fibrillation Clark Hoff M.D. 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 01/05/2021 E78.00 Pure hypercholesterolemia, unspe cified Lab Schedule 01/05/2021 I50.32 Chronic diastolic (congestive) h eart failure Anna Hoff M.D. 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 01/05/2021 C61 Malignant neoplasm of prostate Clark Hoff M.D. 01/05/2021 I50.32 Chronic diastolic (congestive) h eart failure Lab Schedule 01/05/2021 N18.31 Chronic kidney disease, stage 3a Lab Schedule 01/05/2021 C61 Malignant neoplasm of prostate L ab Schedule 12/08/2020 Z51.81 Encounter for therapeutic drug l evel monitoring Lupe Mayorga, [facility] 12/08/2020 Z51.81 Encounter for therapeutic drug l evel monitoring Protime 12/08/2020 I48.0 Paroxysmal atrial fibrillation A jonatan Lizy Jam, [facility] 12/08/2020 I48.0 Paroxysmal atrial fibrillation P rotime 12/08/2020 Z79.01 group home (current) use of antic oagulants Lupe Lizy Jam, SERVER PROGRAMMER 12/08/2020 Z79.01 group home (current) use of antic oagulants Protime Plan of Treatment Future Appointment(s):* 06/21/2021 2:15 pm - Protime at [facility] Functional Status Description No Information Available Mental Status Description No Information Available Referrals Description No Information Available
--- OUTSIDE RECORDS SUMMARY | 2021-08-25 17:26 | CCD | Continuity of Care Document ---
Author Author Tor Barcenas Organization Unknown Address [phone] [address] Phone [phone] Care Team Providers Care Drafter [employer] Name Role Phone Misael Sheppard MD AUTM [phone] Vitor Mendez MD AUTM [phone] Anna Hoff MD AUTM [phone] Minna Richrads MD AUTM [phone] Lory Vasquez MD AUTM [phone] Juan Thompson MD AUTM [phone] Bull Cobian MD AUTM [phone] Nicholas Spring MD AUTM [phone] Anatoliy Mosley MD AUTM [phone] Gayatri Dennison MD AUTM [phone] Aki Nunes MD AUTM [phone] Problems Active Problems Provider Date Benign essential [...] four times a day as needed 24gm Anan gonzalez M.D. 02/12/2019 Prevnar 13 Suspension 0.5 [...] Restasis 0.05% Emulsion instill as directed Anna Hfof M.D. 03/16/20 10 Saline Nasal Dodge 0.65% Solution prn Anna Hoff M.D. 03/16/2010 [...] CPT Code Status Date Vaccine Lot # [id number] Given 03/09/2021 Tetanus/Diptheria(Td)Toxoids Preservative Free [id number] U-Flu Given 09/02/2019 Influenza,Unspecified U-Flu Given 08/26/2018 Influenza,Unspecified U-Flu Given 11/18/2017 Influenza,Unspecified U-Td Given 12/06/2009 Td(Adult)(Tetanus, Diphtheri a) unspecified 56458 Given 09/05/2004 Influenza Virus Vaccine 13898 Given 08/18/1997 Influenza Virus Vaccine [id number] Refused 09/11/2017 Influenza Vaccin e Quadrivalent Preser/Antibiotic Free Im Use Vital Signs Date Vital Result Comment 08/19/2021 2:25pm Weight 214.00 lb 06/30/2021 2:23pm Weight 210.00 lb Results Test Acquired Date Facility Test Result H/L Range Note Laboratory test finding 08/19/2021 Wi-Inr Inr 3.8 Laboratory test finding 06/30/2021 Wi-Inr Inr 1.9 Complete Blood Count 06/06/2021 [facility] Bottoming Machine Operator: [place] [address] [phone] WBC 4.7 x10*3/UL 4.1 - 10.9 RBC [...] 2.0 - 7.8 Comprehensive Chem Profile 06/06/2021 [facility] Bottoming Machine Operator: Dr Peter Cervantes [place], [place] [id number] [phone] Glucose 87 mg/dL 74 - 99 2 [...] Inr 2.5 Total Iron Binding Capacit 04/29/[address] [address] [phone] Iron (Fe) 70 g/dL Normal 65-175 Total Iron Binding Capacity 286 g/dL Normal 250-450 Percent Saturation 24.5 % Normal 19.7-50.0 Laboratory test finding 04/29/[address] [address] [phone] Ferritin 98 NG/ML Normal 26-388 Serum Protein Electrophoresis 04/29/[address] [place] [id number] [phone] Albumin % 44.3 % Low 55.8-66.1 Zvxij-4-Xitxlrpr % 3.5 % Normal 2.9-4.9 Zbimd-3-Vdjjssjkb % 9.7 % Normal 7.1-11.8 Mszs-5-Zkmdxgqes % 34.0 % High 4.7-7.2 Cknd-9-Csjrtccit % 4.0 % Normal 3.2-6.5 Gamma Globulin % 4.5 % Low 11.1-18.8 Albumin 3.37 GM/DL Normal 3.29-5.55 Fxxzv-8-Uhoskrtfu 0.27 GM/DL Normal 0.17-0.41 Kloye-2-Yypqkmplm 0.74 GM/DL Normal 0.42-0.99 Zpav-3-Tfqnyupgd 2.58 GM/DL High 0.28-0.60 Kacr-0-Hqwdwwibs 0.30 GM/DL Normal 0.19-0.55 Gamma Globulins 0.34 GM/DL Low 0.65-1.58 Total Protein 7.6 GM/DL Normal 6.4-8.2 Spep Interpretation SEE COMMENT Normal 4 Spep Pathologist Review REV'D BY Jasmyne WILSON Normal Laboratory test finding 04/29/[address] [id number] [phone] Immunoglobulin A 111.0 mg/dL Normal 70-400 Immunoglobulin G 2550 mg/dL High [phone] Immunoglobulin M 26.9 mg/dL Low 40-230 Comprehensive Metabolic Profil 04/29/[address] [id number] [phone] Glucose, Fasting 100 mg/dL Normal 70-100 Blood [...] Low 3.2-5.2 Albumin/Globulin Ratio 0.6 Normal Free Bethesda & Lambda LT Chains 04/29/[address] [address] [phone] Free Bethesda Light Chains Serum 192.4 mg/L High 3. 3-19.4 Free Lambda Light Chains Serum 13.3 mg/L Normal 5.7-26.3 Bethesda/Lambda Ratio Serum 14.47 High 0.26-1.65 6 Laboratory test finding 04/29/[address] [address] [phone] Immature Platelet Fraction 16.2 % High 0.0-1 0.91 CBC With Differential 04/29/[address] [address] [phone] White Blood Count 4.5 10 Normal 4.0-10.0 [...] 36.0-66.0 Lymph % 26.5 % Normal 24.0-44.0 [place] % 9.4 % High 2.0-8.0 Eos % 2.2 % Normal 0.0-3.0 Baso % 0.7 % Normal 0.0-1.0 Immature Granulocyte % 0.4 % Normal 0-3.0 Nucleated Red Blood Cell % 0.0 % Normal 0-0 Neutrophils # 2.7 10 Normal 1.5-8.5 Lymph # 1.2 10 Low 1.5-5.0 [place] # 0.4 10 Normal 0.0-0.8 Eos # 0.1 10 Normal 0.0-0.5 Baso # 0.0 10 Normal 0.0-0.2 Cardiac Marker Panel 04/22/2021 [facility] enter [address] [place] [address] [phone] CPK Creatine Phosphokinase 65 U/L Normal 39-30 8 CK-MB Value Mass 1.2 NG/ML Normal <3.6 MB/CK Relative Index 1.85 Normal < Or =4 7 Troponin I 0.02 NG/ML Normal < 0.10 8 Laboratory test finding 04/21/[address] [address] [phone] Platelet Estimate MARKED DECREASE Normal Normal Immature Platelet Fraction 11.6 % High 0.0-10.91 Laboratory test finding 04/21/[address] [address] [phone] Lipase 166 U/L Normal 73-393 Thyroid Stimulating Hormone 3.810 uIU/ML High 0.358-3.740 Free T4 1.12 ng/dL Normal 0.76-1.46 Basic Metabolic Profile 04/21/[address] [address] [phone] Glucose, Fasting 80 mg/dL Normal 70-100 Blood [...] 9.8 mg/dL Normal 8.8-10.2 Liver Profile 04/21/2021 [facility] nter [address] [place] [address] [phone] Ast/Sgot 31 U/L Normal 7-37 Alt/SGPT 17 U/L Normal 12-78 Alkaline Phosphatase 62 U/L Normal 45-117 Bilirubin,Total 0.9 mg/dL Normal 0.2-1.0 Bilirubin,Direct 0.3 mg/dL High 0.0-0.2 Total Protein 8.2 GM/DL Normal 6.4-8.2 Albumin 3.0 GM/DL Low 3.2-5.2 Albumin/Globulin Ratio 0.6 Normal Cardiac Marker Panel 04/21/2021 [facility] enter [address] [place] [address] [phone] CPK Creatine Phosphokinase 86 U/L Normal 39-30 8 CK-MB Value Mass 1.8 NG/ML Normal <3.6 MB/CK Relative Index 2.09 Normal < Or =4 10 Troponin I < 0.02 NG/ML Normal < 0.10 11 Differential 04/21/2021 [facility] [address] [place] [address] [phone] Neutrophils 56 % Normal 28-66 Lymphocytes 23 % Normal 16-44 Monocytes 12 % High 0-5 Eosinophils 3 % Normal 0-3 Basophils 1 % Normal 0-1 Atypical Lymph 5 % Normal 0-5 Anisocytosis 1+ Normal CBC With Differential 04/21/[address] [address] [phone] White Blood Count 3.9 10 Low 4.0-10.0 [...] 0.0 % Normal 0-0 Liver Profile 04/20/2021 [facility] [address] [place] [address] [phone] Ast/Sgot 44 U/L High 7-37 12 Alt/SGPT 16 U/L Normal 12-78 Alkaline Phosphatase 56 U/L Normal 45-117 Bilirubin,Total 0.8 mg/dL Normal 0.2-1.0 Bilirubin,Direct < 0.1 mg/dL Normal 0.0-0.2 Total Protein 7.8 GM/DL Normal 6.4-8.2 Albumin 2.6 GM/DL Low 3.2-5.2 Albumin/Globulin Ratio 0.5 Normal Laboratory test finding 04/20/[address] [address] [phone] Lipase 119 U/L Normal 73-393 Laboratory test finding 04/20/[address] [address] [phone] iSTAT Troponin 0.01 NG/ML Normal 0.00-0.08 CBC With Differential 04/20/[address] [address] [phone] White Blood Count 4.0 10 Normal 4.0-10.0 [...] 36.0-66.0 Lymph % 30.7 % Normal 24.0-44.0 [place] % 12.3 % High 2.0-8.0 Eos % 3.8 % High 0.0-3.0 Baso % 0.8 % Normal 0.0-1.0 Immature Granulocyte % 0.8 % Normal 0-3.0 Nucleated Red Blood Cell % 0.0 % Normal 0-0 Neutrophils # 2.1 10 Normal 1.5-8.5 Lymph # 1.2 10 Low 1.5-5.0 [place] # 0.5 10 Normal 0.0-0.8 Eos # 0.2 10 Normal 0.0-0.5 Baso # 0.0 10 Normal 0.0-0.2 Laboratory test finding 04/20/2021 [facility] [address] [place] [address] [phone] Immature Platelet Fraction 11.3 % High 0.0-1 0.91 Prothrombin Time/Inr 04/20/2021 [facility] enter [address] [place], [place] [address] [phone] Prothrombin Time 24.7 seconds High 12.5-14.3 Inr 2.17 Normal 13 Istat Chem8+ Panel 04/20/2021 [facility] nter [address] [place], [place] [address] [phone] iSTAT HCT 39.0 % Normal 38.0-51.0 iSTAT [...] Wi-Inr Inr 2.2 Complete Blood Count 03/08/2021 [facility] Bottoming Machine Operator: [place] [address] [phone] WBC 5.4 x10*3/UL 4.1 - 10.9 RBC [...] 7.8 Comprehensive Chem Profile 03/08/2021 kiara Wolf Bottoming Machine Operator: [place] [address] [phone] Glucose 133 mg/dL High 74 - 99 [...] mL/min >60 16 Laboratory test finding 03/08/2021 [facility] [employer] [facility] Bottoming Machine Operator: [place] [address] [phone] Thyroid Stimulating Hormone 2.94 uIU/mL 0.3 6 [...] LITTLE GFR LEFT ESRD GFR <15 ON BLADE FILER 4 M-SPIKE NOTED IN BETA 1 FAWAD ON. CONCENTRATION = 2.37 GM/DL 5 Units are mL/min/1.73 m2 Chronic Kidney Disease Staging per NKF: Stage I & II GFR >=60 Normal to Mildly Decreased Stage III GFR 30-59 Moderately Decreased Stage IV GFR 15-29 Severely Decreased Stage V GFR <15 Very Little GFR Left ESRD GFR <15 on BLADE FILER 6 Performed at: RN - [facility] [address] [id number] Bottoming Machine Operator: Keyonna Fraser MD, Phone: [phone] DIAGNOSIS CRITERIA MMB ng/ml Relative Index (RI) NON-AMI < or = 5 N/A PRIETO ZONE > 5 < or = 4 AMI > 5 > 4 8 Troponin I Reference Interva l for [employer] LOCI: 99th Percentile= 0.00-0.045 ng/ml Risk Stratification: [...] Little GFR Left ESRD GFR <15 on BLADE FILER 10 DIAGNOSIS CRITERIA MMB ng/ml Relative Index (RI) NON-AMI < or = 5 N/A PRIETO ZONE > 5 < or = 4 AMI > 5 > 4 11 Troponin I Reference Interva l for Siemens Haslet LOCI: 99th Percentile= 0.00-0.045 ng/ml Risk Stratification: [...] LITTLE GFR LEFT ESRD GFR <15 ON BLADE FILER Procedures Date Code Description Status 06/06/2021 22458 Office/Outpatient Established Mo d MDM 30-39 Min Completed 03/09/2021 85278 Est Prevent Med (65Yrs&Ovr) Comp leted 04/15/2019 [id number] Colonoscopy Completed 07/02/2017 [id number] Colonoscopy Completed 05/23/2016 [id number] Diabetic Retinal Eye Exam Comple carmen 05/18/2016 [id number] Colonoscopy Completed 01/30/2013 [id number] Mammogram Completed 05/02/2012 [id number] Colonoscopy Completed Medical Devices Description No Information Available Encounters Type Date Location Provider Dx Diagnosis Office Visit 06/06/2021 11:30a [facility] Leonardo Hoff M.D. 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 06/06/2021 I48.0 Paroxysmal atrial fibrillation Clark Hoff M.D. 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 [facility] 05/19/2021 Z51.81 Encounter for therapeutic drug l evel monitoring Lupe Mayorga [facility] 05/19/2021 Z51.81 Encounter for therapeutic drug l evel monitoring [facility] 05/05/2021 Z51.81 Encounter for therapeutic drug l evel monitoring Lupe Mayorga [facility] 05/05/2021 Z51.81 Encounter for therapeutic drug l evel monitoring Protime 05/05/2021 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 Lupe Mayorga [facility] 05/05/2021 Z79.01 [facility] (current) use of antic oagulants [facility] 05/05/2021 I48.0 Paroxysmal atrial fibrillation A jonatan Mayorga, [employer]CR[employer]E INSPECTOR 05/05/2021 I48.0 Paroxysmal atrial fibrillation P rotime 04/05/2021 Z51.81 Encounter for therapeutic drug l evel monitoring Lupe Mayorga, CONCR[employer]E INSPECTOR 04/05/2021 Z51.81 Encounter for therapeutic drug l evel monitoring [facility] 04/05/2021 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 03/09/2021 I48.0 Paroxysmal atrial fibrillation Clark Hoff M.D. 03/09/2021 Z79.01 [facility] (current) use of antic oagulants Anna Hoff M.D. 03/09/2021 I25.10 Atherosclerotic hear t disease of [place] coronary artery without angina pectoris Anna Hoff [...] without esophagitis Anna Hoff M.D. 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 * 09/06/2021 3:15 pm - [facility] 06/06/2021 - Anna Hoff M.D.* D47.2 Monoclonal gammopathy * I48.0 Paroxysmal atrial fibrillation * Z79.01 [facility] (current) use of anticoagulants * I25.10 Atherosclerotic heart disease of [place] coronary artery without angina pectoris * I13.0 [...]
--- OUTSIDE RECORDS SUMMARY | 2021-08-25 17:26 | CCD ---
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 09/10/2019 - 12:00AM Anatoliy Mosley MD, FACS Active Posterior Capsule Opacification Eccentric Capsule Left Eye 0 07/20/2016 - 12:00AM Unknown - Unknown Anatoliy Mosley MD, FACS Resolved History of Nicotine Dependence 07/20/2016 - 12:00AM Anatoliy Mosley MD, FACS Active Essential Hypertension 07/20/2016 - 12:00AM Anatoliy Agosto MD, FACS Active Retinopathy Hypertensive Both Eyes 07/20/2016 - 12:00AM Anatoliy Mosley MD, FACS Active Pseudophakic - Both Eyes 07/20/2016 - 12:00AM Anatoliy Mosley MD, FACS Active Epidermal Inclusion Cyst 07/20/2016 - 12:00AM Anatoliy Mosley MD, FACS Active Senile ectropion of left lower eyelid 07/20/2016 - 12:00AM Anatoliy Mosley MD, FACS Active Dry Eye Syndrome Both Eyes 07/20/2016 - 12:00AM Anatoliy Mosley MD, FACS Active Vitreous Disorders Degeneration 07/20/2016 - 12:00AM Anatoliy Mosley MD, FACS Active Plan of Treatment Future Appointments Date Time Location Provider 1 Year Follow-Up 11/22/2021 1:45PM Anatoliy Mosley MD [facility] Anatoliy Mosley MD, FACS Assessments Includes: Assessments for all patient encounters Findings Encounter Date Dry eye syndrome of both eyes 1 Year Follow-Up with Jeff Mosley MD, FACS 11/17/2020 Essential hypertension 1 Year Follow-Up with Anatoliy Tavarez MD, FACS 11/17/2020 History of nicotine dependence 1 Year Follow-Up with Fredi Mosley MD, FACS 11/17/2020 Hypertensive retinopathy of both eyes 1 Year Follow-Up with Anatoliy Mosley MD, FACS 11/17/2020 Vitreous degeneration 1 Year Follow-Up with Anatoliy duvall MD, FACS 11/17/2020 Benign neoplasm of skin of right lower eyelid, includi ng canthus 1 Year Follow- Up with Anatoliy Mosley MD, FACS 09/10/2019 Dry eye syndrome of both eyes 1 Year Follow-Up with Jeff Mosley MD, FACS 09/10/2019 Essential hypertension 1 Year Follow-Up with Anatoliy Tavarez MD, FACS 09/10/2019 History of nicotine dependence 1 Year Follow-Up with Fredi Mosley MD, FACS 09/10/2019 Hypertensive retinopathy of both eyes 1 Year Follow-Up with Anatoliy Mosley MD, FACS 09/10/2019 Vitreous degeneration 1 Year Follow-Up with Anatoliy duvall MD, FACS 09/10/2019 Dry eye syndrome of both eyes 1 Year Follow-Up with Jeff Mosley MD, FACS 09/09/2018 Essential hypertension 1 Year Follow-Up with Anatoliy Tavarez MD, FACS 09/09/2018 History of nicotine dependence 1 Year Follow-Up with Fredi Mosley MD, FACS 09/09/2018 Hypertensive retinopathy of both eyes 1 Year Follow-Up with Anatoliy Mosley MD, FACS 09/09/2018 Vitreous degeneration 1 Year Follow-Up with Anatoliy duvall MD, FACS 09/09/2018 Dry eye syndrome of both eyes 5 Month Follow-Up with Fredi Mosley MD, FACS 08/29/2017 Pseudophakia in both eyes 5 Month Follow-Up with Anatoliy Stratton MD, FACS 08/29/2017 Pseudophakia in both eyes Yag Laser Cap Follow up - Gl obal 90 day post op with Anatoliy Mosley MD, FACS 03/19/2017 Posterior capsule opacification of eccentric capsule i n the left eye Yag Laser Capsulotomy - Global: 90 DAY POST OP with Anatoliy Mosley MD, FACS 01/23/2017 Pseudophakia Yag Laser Capsulotomy - Glob al: 90 DAY POST OP with Anatoliy Tavarez MD, FACS 01/23/2017 Dry eye syndrome of both eyes 3 Month Follow-Up with Fredi Mosley MD, FACS 11/16/2016 Posterior capsule opacification of eccentric capsule i n the left eye 3 Month Follow-Up with Anatoliy Mosley MD, FACS 11/16/2016 Pseudophakia in both eyes 3 Month Follow-Up with Anatoliy Stratton MD, FACS 11/16/2016 Dry eye syndrome of both eyes NEW PATIENT WITH REFERRA L with Anatoliy Mosley MD, FACS 07/20/2016 Epidermal inclusion cyst NEW PATIENT WITH REFERRAL [facility] Anatoliy Mosley MD, FACS 07/20/2016 Essential hypertension NEW PATIENT WITH REFERRAL [facility] Anatoliy Mosley MD, FACS 07/20/2016 History of nicotine dependence NEW PATIENT WITH REFERR AL with Anatoliy Tavarez MD, FACS 07/20/2016 Hypertensive retinopathy of both eyes NEW PATIENT WITH REFERRAL with Anatoliy Mosley MD, FACS 07/20/2016 Posterior capsule opacification of eccentric capsule i n the left eye NEW PATIENT WITH REFERRAL with Anatoliy Mosley MD, FACS 07/20/2016 Pseudophakia in both eyes NEW PATIENT WITH REFERRAL [facility] Anatoliy Mosley MD, FACS 07/20/2016 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 NEW PATIENT WITH REFERRAL with Anatoliy Mosley MD, FACS 07/20/2016 Vitreous degeneration NEW PATIENT WITH REFERRAL [facility] Anatoliy Mosley MD, FACS 07/20/2016 Instructions Instructions not supported for this document typeNo Instructions Recorded Medical Equipment - Implanted Devices Includes: Current and historical DevicesNo Medical Equipment Recorded Medications Includes: Current and historical Medications Current Medications (continue as prescribed) Restasis 0.05% Ophthalmic Emulsion 11/09/2020 Provi penny: Anatoliy Mosley MD, FACS Diagnosis: Dry eye syndrome of bilateral lacrimal glands One drop twice a day in both eyes Albuterol Sulfate (2.5 MG/3ML) 0.083% Nebulization solution 05/23/2016 Provider: Diagnosis: 50 units four times a day as needed Nitrostat 0.4 MG Tablet Sublingual 05/23/2016 Provi penny: Diagnosis: one under tongue every 5 minutes x 3 as needed for chest dis comfort Gabapentin 600 MG Tablet 05/23/2016 Provider: Diagnosis: ProAir HFA 108 (90 Base) MCG/ACT Aerosol Solution 05/23/2016 Provider: Diagnosis: 2 puffs four times a day Terazosin HCl 10 MG Capsule 05/23/2016 Provider: Diagnosis: Advair HFA 115-21 MCG/ACT Aerosol 05/23/2016 Provid er: Diagnosis: 2 sprays twice a day Saline Nasal [place] 0.65 % Solution 05/23/2016 Provi penny: Diagnosis: as needed Crestor 10 MG Tablet 05/23/2016 Provider: Diagnosis: Nebulizer Device 05/23/2016 Provider: Diagnosis: use as directed Spiriva HandiHaler 18 MCG Capsule 05/23/2016 Provid er: Diagnosis: Furosemide 40 MG Tablet 05/23/2016 Provider: Diagnosis: Spironolactone 25 MG Tablet 05/23/2016 Provider: Diagnosis: Metoprolol Succinate ER 50 MG Tablet Extended Release 24 Alexus r 05/23/2016 Provider: Diagnosis: Warfarin Sodium 3 MG Tablet 05/23/2016 Provider: Diagnosis: 2 everyday at 5 p.m. Esomeprazole Magnesium 40 MG Capsule Delayed Release 016 Provider: Diagnosis: Fluticasone Propionate 50 MCG/ACT Suspension 05/23/2016 Provider: Diagnosis: 2 sprays each nostril daily Past Medications on file Restasis 0.05% Ophthalmic Emulsion 09/10/2019 - 11/09/2020 P rovider: Anatoliy Mosley MD, FACS Diagnosis: Dry eye syndrome of bilateral lacrimal glands One drop twice a day in both eyes Restasis 0.05% Ophthalmic Emulsion 03/18/2018 - 09/10/2019 P rovider: Anatoliy Mosley MD, FACS Diagnosis: Dry eye syndrome of bilateral lacrimal glands One drop twice a day in both eyes Restasis Multidose 0.05% Ophthalmic Emulsion 08/29/2017 - Provider: Anatoliy Mosley MD, FACS Diagnosis: Dry eye syndrome of bilateral lacrimal glands One drop twice a day in both eyes Pred Forte 1% Ophthalmic Suspension 01/23/2017 - 06/24/2018 Provider: Anatoliy Mosley MD, FACS Diagnosis: Other secondary alex ract, left eye One drop four times a day in the left eye for 5 days Restasis 0.05 % Emulsion 07/20/2016 - 06/24/2018 Provider: Anatoliy Mosley MD, FACS Diagnosis: Dry eye syndrome of bilateral lacrimal glands One drop twice a day in both eyes Fish Oil 1200 MG Capsule 05/23/2016 - 09/09/2018 Provider: Diagnosis: 2 capsules once a day Colace 100 MG Capsule 05/23/2016 - 09/09/2018 Provider: Diagnosis: Hydrocodone-Acetaminophen 10-325 MG Tablet 05/23/2016 - 03/2018 Provider: Diagnosis: 1 every 4 hours as needed Vitamin D3 5000 UNIT Tablet 05/23/2016 - 09/09/2018 Provider : Diagnosis: Glucosamine Chond Complex/MSM Tablet 05/23/2016 - 09/09/2018 Provider: Diagnosis: Restasis 0.05 % Emulsion 05/23/2016 - 03/18/2018 Provider: Diagnosis: Voltaren 1 % Gel 05/23/2016 - 09/09/2018 Provider: Diagnosis: apply up to 4 grams four times a day as needed Wellbutrin XL 150 MG Tablet Extended Release 24 Hour - 05/23/2016 Provider: Diagnosis: Wellbutrin SR 150 MG Tablet Extended Release 12 Hour - 09/09/2018 Provider: Diagnosis: Medications Administered Includes: Administered Medications in patient's chartNo Administered Medications Recorded Vital Signs Includes: Vital Signs from 07/18/2020 through 07/18/2021No Vital Signs Recorded For Specified Dates Results Includes: Results from 07/18/2020 through 07/18/2021No Results Recorded For Specified Dates History of Present Illness History of Present Illness not supported for this document typeNo History of Present Illness Recorded Social History Description Last Updated Tobacco non-user 11/17/2020 No consumption of alcohol 11/17/2020 No tobacco use 11/17/2020 Not using drugs 11/17/2020 Smoking status : Former smoker 11/17/2020 Previous smoking history 06/24/2018 Procedures and Surgical History Includes: Procedures from 07/18/2020 through 07/18/2021 Procedures Code Diagnosis Performing Provider Service Location Service Date Intermediate Eye Exam Established Patient [id number] Dry eye syndrome of bilateral lacrimal glands, Hypertensive retinopathy, bilateral, Essential (primary) hypertension, Personal history of nicotine dependence Anatoliy Mosley MD, FACS Anatoliy Mosley MD [facility] 11/17/2020 Surgical History Last Updated History of extracapsular cataract extrac tion PCIOL OS 10/13/[address] Boyd ~PCIOL OD 11/30/[address] 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, BCC removed from left side of nostril 201609/10/2019 History of discission of secondary membr anous cataract of left eye by laser by 01/23/17 06/24/2018 History of discission of secondary membr anous cataract of right eye by laser 08/201506/24/2018 Medical History Includes: Medical History in patient's chart Description Last Updated Reported medical history Reflux 06/24/2018 No recent change in medical history 08/29/2017 Currently wearing eyeglasses 08/29/2017 History of asthma 08/29/2017 History of hyperlipidemia 08/29/2017 History of hypertension 08/29/2017 Family History Includes: Family History in patient's chart Description Last Updated Fraternal history of family history of cancer 11/17/19 21 Maternal history of heart disease 11/17/2020 Maternal history of hypertension 11/17/2020 Paternal history of arthritis 11/17/2020 Paternal history of cataract 11/17/2020 Paternal history of family history of cancer Sororal history of family history of cancer 11/17/2020 Review of Systems Review of Systems not supported for this document typeNo Review of Systems Recorded Mental Status Mental Status not supported for this document type Description Oriented to time, place, and person Functional Status Functional Status not supported for this document typeNo Functional Status Recorded Physical Exam Physical Exam not supported for this document typeNo Physical Exam Recorded Immunizations Includes: Immunizations in patient's chartNo Immunizations Recorded Allergies Includes: Active, inactive, and resolved AllergiesNo Known Allergies Encounters Includes: Encounters from 07/18/2020 through 07/18/2021 Encounter Provider Location Date Check-In Time Check-Out Time D iagnosis 1 Year Follow-Up Anatoliy Mosley MD, FACS Anatoliy Rai [facility] 11/17/2020 1:35PM 2:15PM History of Nicotine Dependence, Essential Hypertension, Retinopathy Hypertensive Both Eyes, Dry Eye Syndrome Both Eyes, Vitreous Disorders Degeneration Rx Refills/Changes Anatoliy Mosley MD, BIRGIT 11/09/2020 09/10/2019 2:31PM 09/10/2019 11:59PM Insurance Includes: Active Insurance Policies Plan Name Member ID Group # Subscriber Relationship Effective Da natalie 1 - [employer] [id number] Tor Terrazas Self Advance Directives Includes: Current Advance DirectivesNo Advance Directives Recorded Health Concerns Includes: Active Health ConcernsNo Active Health Concerns Recorded Goals Includes: Active GoalsNo Active Goals Recorded Interventions Includes: Interventions for active GoalsNo Interventions Recorded Evaluations & Outcomes Includes: Evaluations & Outcomes for active GoalsNo Outcomes Recorded
--- OUTSIDE RECORDS SUMMARY | 2021-08-25 17:27 | CCD | Continuity of Care Document ---
Author Author Tor Barcenas Organization Unknown Address [id number] [address] Phone [phone] Care Team Providers Care Cow Tender Name Role Phone Misael Sheppard MD AUTM [phone] Vitor Mendez MD AUTM [phone] Anna Hoff MD AUTM [phone] Minna Richards MD AUTM [phone] Lory Vasquez MD AUTM [phone] Juan Thompson MD AUTM [phone] Bull Cobian MD AUTM [phone] Nicholas Spring MD AUTM [phone] Anatoliy Mosley MD AUTM [phone] Gayatri Dennison MD AUTM [phone] Aki Nunes MD AUTM [phone] Problems Active Problems Provider Date Benign essential [...] Anna Hoff M.D. 03/16/20 10 Saline Nasal [place]land 0.65% Solution prn Anna Hoff M.D. 03/16/2010 Nebulizer Misc use as directed dg 496 1unapril Hoff M.D. 04/2009 Mucinex 600mg Tablets ER [...] CPT Code Status Date Vaccine Lot # [id number] Given 03/09/2021 Tetanus/Diptheria(Td)Toxoids Preservative Free [id number] U-Flu Given 09/02/2019 Influenza,Unspecified U-Flu Given 08/26/2018 Influenza,Unspecified U-Flu Given 11/18/2017 Influenza,Unspecified U-Td Given 12/06/2009 Td(Adult)(Tetanus, Diphtheri a) unspecified [id number] Given 09/05/2004 Influenza Virus Vaccine [id number] Given 08/18/1997 Influenza Virus Vaccine [id number] Refused 09/11/2017 Influenza Vaccin e Quadrivalent Preser/Antibiotic Free Im Use Vital Signs Date Vital Result Comment 05/19/2021 2:53pm Weight 209.00 lb 04/05/2021 3:39pm Weight 211.00 lb Results Test Acquired Date Facility Test Result H/L Range Note Laboratory test finding 05/19/2021 [facility] 2.5 CBC With Differential 04/29/2021 [place] [address] [phone] White Blood Count 4.5 10 Normal 4.0-10.0 [...] 36.0-66.0 Lymph % 26.5 % Normal 24.0-44.0 Assumption % 9.4 % High 2.0-8.0 Eos % 2.2 % Normal 0.0-3.0 Baso % 0.7 % Normal 0.0-1.0 Immature Granulocyte % 0.4 % Normal 0-3.0 Nucleated Red Blood Cell % 0.0 % Normal 0-0 Neutrophils # 2.7 10 Normal 1.5-8.5 Lymph # 1.2 10 Low 1.5-5.0 Assumption # 0.4 10 Normal 0.0-0.8 Eos # 0.1 10 Normal 0.0-0.5 Baso # 0.0 10 Normal 0.0-0.2 Laboratory test finding 04/29/2021 [place] [id number] [phone] Ferritin 98 NG/ML Normal 26-388 Serum Protein Electrophoresis 04/29/[address] [address] [phone] Albumin % 44.3 % Low 55.8-66.1 Oidgw-7-Uobxjknf % 3.5 % Normal 2.9-4.9 Ruleu-2-Zhibxyofu % 9.7 % Normal 7.1-11.8 Wwep-2-Lfdfhccpl % 34.0 % High 4.7-7.2 Mwtr-6-Xrttubcmy % 4.0 % Normal 3.2-6.5 Gamma Globulin % 4.5 % Low 11.1-18.8 Albumin 3.37 GM/DL Normal 3.29-5.55 Anadr-3-Muczfrhqd 0.27 GM/DL Normal 0.17-0.41 Gupgj-5-Uyazvlapo 0.74 GM/DL Normal 0.42-0.99 Zual-0-Epuyscabh 2.58 GM/DL High 0.28-0.60 Vtfa-3-Edqnbhaam 0.30 GM/DL Normal 0.19-0.55 Gamma Globulins 0.34 GM/DL Low 0.65-1.58 Total Protein 7.6 GM/DL Normal 6.4-8.2 Spep Interpretation SEE COMMENT Normal 1 Spep Pathologist Review REV'D BY Jasmyne WILSON Normal Laboratory test finding 04/29/[address] [address] [phone] Immunoglobulin A 111.0 mg/dL Normal 70-400 Immunoglobulin G 2550 mg/dL High 681-1648 Immunoglobulin M 26.9 mg/dL Low 40-230 Comprehensive Metabolic Profil 04/29/[address] [address] [phone] Glucose, Fasting 100 mg/dL Normal 70-100 Blood [...] Low 3.2-5.2 Albumin/Globulin Ratio 0.6 Normal Free Cotati & Lambda LT Chains 04/29/[address] [address] [phone] Free Cotati Light Chains Serum 192.4 mg/L High 3. 3-19.4 Free Lambda Light Chains Serum 13.3 mg/L Normal 5.7-26.3 Cotati/Lambda Ratio Serum 14.47 High 0.26-1.65 3 Laboratory test finding 04/29/[address] [address] [phone] Immature Platelet Fraction 16.2 % High 0.0-1 0.91 Total Iron Binding Capacit 04/29/[address] [address] [phone] Iron (Fe) 70 g/dL Normal 65-175 Total Iron Binding Capacity 286 g/dL Normal 250-450 Percent Saturation 24.5 % Normal 19.7-50.0 Cardiac Marker Panel 04/22/2021 [facility] enter [address] [place] [address] [phone] CPK Creatine Phosphokinase 65 U/L Normal 39-30 8 CK-MB Value Mass 1.2 NG/ML Normal <3.6 MB/CK Relative Index 1.85 Normal < Or =4 4 Troponin I 0.02 NG/ML Normal < 0.10 5 Basic Metabolic Profile 04/21/2021 [facility] [address] [place] [address] [phone] Glucose, Fasting 80 mg/dL Normal 70-100 Blood Urea Nitrogen 12 mg/dL Normal 7-18 Creatinine For GFR 0.81 mg/dL Normal 0.70-1.30 Glomerular Filtration Rate > 60.0 Normal >35 6 Sodium Level 141 mEq/L Normal 136-145 Potassium Serum 3.6 mEq/L Normal 3.5-5.1 Chloride Level 108 mEq/L High 98-107 Carbon Dioxide Level 26 mEq/L Normal 21-32 Anion Gap 7 mEq/L Low 8-16 Calcium Level 9.8 mg/dL Normal 8.8-10.2 Laboratory test finding 04/21/2021 [facility] [address] [place] [address] [phone] Lipase 166 U/L Normal 73-393 Thyroid Stimulating Hormone 3.810 uIU/ML High 0.358-3.740 Free T4 1.12 ng/dL Normal 0.76-1.46 Liver Profile 04/21/2021 [facility] nter [address] [place] [address] [phone] Ast/Sgot 31 U/L Normal 7-37 Alt/SGPT 17 U/L Normal 12-78 Alkaline Phosphatase 62 U/L Normal 45-117 Bilirubin,Total 0.9 mg/dL Normal 0.2-1.0 Bilirubin,Direct 0.3 mg/dL High 0.0-0.2 Total Protein 8.2 GM/DL Normal 6.4-8.2 Albumin 3.0 GM/DL Low 3.2-5.2 Albumin/Globulin Ratio 0.6 Normal Cardiac Marker Panel 04/21/2021 [facility] enter [address] [place] [address] [phone] CPK Creatine Phosphokinase 86 U/L Normal 39-30 8 CK-MB Value Mass 1.8 NG/ML Normal <3.6 MB/CK Relative Index 2.09 Normal < Or =4 7 Troponin I < 0.02 NG/ML Normal < 0.10 8 Laboratory test finding 04/21/2021 [facility] [address] [place] [address] [phone] Platelet Estimate MARKED DECREASE Normal Normal Immature Platelet Fraction 11.6 % High 0.0-10.91 Differential 04/21/2021 [facility] nter [address] [place] [phone] Neutrophils 56 % Normal 28-66 Lymphocytes 23 % Normal 16-44 Monocytes 12 % High 0-5 Eosinophils 3 % Normal 0-3 Basophils 1 % Normal 0-1 Atypical Lymph 5 % Normal 0-5 Anisocytosis 1+ Normal CBC With Differential 04/21/[address] [address] [phone] White Blood Count 3.9 10 Low 4.0-10.0 [...] 0.0 % Normal 0-0 Liver Profile 04/20/2021 [facility] nter [address] [place] [address] [phone] Ast/Sgot 44 U/L High 7-37 9 Alt/SGPT 16 U/L Normal 12-78 Alkaline Phosphatase 56 U/L Normal 45-117 Bilirubin,Total 0.8 mg/dL Normal 0.2-1.0 Bilirubin,Direct < 0.1 mg/dL Normal 0.0-0.2 Total Protein 7.8 GM/DL Normal 6.4-8.2 Albumin 2.6 GM/DL Low 3.2-5.2 Albumin/Globulin Ratio 0.5 Normal Laboratory test finding 04/20/[address] [address] [phone] Lipase 119 U/L Normal 73-393 Laboratory test finding 04/20/[address] [address] [phone] iSTAT Troponin 0.01 NG/ML Normal 0.00-0.08 CBC With Differential 04/20/[address] [address] [phone] White Blood Count 4.0 10 Normal 4.0-10.0 [...] 36.0-66.0 Lymph % 30.7 % Normal 24.0-44.0 Assumption % 12.3 % High 2.0-8.0 Eos % 3.8 % High 0.0-3.0 Baso % 0.8 % Normal 0.0-1.0 Immature Granulocyte % 0.8 % Normal 0-3.0 Nucleated Red Blood Cell % 0.0 % Normal 0-0 Neutrophils # 2.1 10 Normal 1.5-8.5 Lymph # 1.2 10 Low 1.5-5.0 Assumption # 0.5 10 Normal 0.0-0.8 Eos # 0.2 10 Normal 0.0-0.5 Baso # 0.0 10 Normal 0.0-0.2 Laboratory test finding 04/20/2021 [facility] Center [address] [place] [address] [phone] Immature Platelet Fraction 11.3 % High 0.0-1 0.91 Prothrombin Time/Inr 04/20/2021 [facility] enter [address] [place] [address] [phone] Prothrombin Time 24.7 seconds High 12.5-14.3 Inr 2.17 Normal 10 Istat Chem8+ Panel 04/20/2021 [facility] nter [address] [place] [address] [phone] iSTAT HCT 39.0 % Normal 38.0-51.0 iSTAT Glucose 96 mg/dL Normal 70-105 iSTAT Sodium 142 mEq/L Normal 136-145 iSTAT Potassium 3.8 mEq/L Normal 3.5-5.1 iSTAT CA++ 4.6 mg/dL Normal 4.5-5.3 iSTAT Chloride 103 mEq/L Normal 98-109 iSTAT Co2 24.0 MM/L Normal 23.0-27.0 iSTAT BUN 11 mg/dL Normal 8-26 iSTAT Creatinine 0.9 mg/dL Normal 0.6-1.3 Laboratory test finding 04/05/2021 Wi-Inr Inr 2.2 Comprehensive Chem Profile 03/08/2021 [place] kiara Cristobal Palliative Nurse: Dr Peter Cervantes [place], [place] [id number] [phone] Glucose 133 mg/dL High 74 - 99 11 BUN 17 mg/dL 7 - 18 Creatinine [...] mL/min >60 GFR >= 60 mL/min >60 12 Laboratory test finding 03/08/2021 [place] Gyroscopic Instrument Tester kiara kim Palliative Nurse: [place] [address] [phone] Thyroid Stimulating Hormone 2.94 uIU/mL 0.3 6 - 3.74 Complete Blood Count 03/08/2021 [place] [facility] Techn[facility] kiara kramer Palliative Nurse: Dr Peter Rosalogg [place], [place] [address] [phone] WBC 5.4 x10*3/UL 4.1 - 10.9 RBC 4.05 x10*6/UL Low 4.20 - 6.30 Hemoglobin 12.7 g/dL 12.0 - 18.0 Hematocrit 38.3 % 37.0 - 51.0 MCV 94.5 fL 80.0 - 97.0 MCH 31.3 pg 26.0 - 32.0 MCHC 33.1 g/dL 31.0 - 38.0 RDW 14.6 % High 11.6 - 13.7 PLT 86 x10*3/UL Low 140 - 440 13 MPV 10.2 FL 7.8 - 11.0 Lymph % 25.2 % 10.0 - 58.5 Mid % 6.6 % 1.7 - 9.3 Neut % 68.2 % 37.0 - 92.0 Lymph # 1.3 x10*3/UL 0.6 - 4.1 Mid # 0.4 x10*3/UL 0.1 - 0.6 Neut # 3.7 x10*3/UL 2.0 - 7.8 Laboratory test finding 03/03/2021 Wi-Inr Inr 2.3 Laboratory test finding 01/31/2021 Wi-Inr Inr 2.8 Laboratory test finding 01/17/[address] [id number] [phone] Ferritin 84 NG/ML Normal 26-388 Laboratory test finding 01/17/[address] [id number] [phone] Immature Platelet Fraction 11.2 % High 0.0-1 0.91 CBC With Differential 01/17/2021 [facility] [address] [place] [address] [phone] White Blood Count 5.4 10 Normal 4.0-10.0 [...] 36.0-66.0 Lymph % 18.5 % Low 24.0-44.0 Assumption % 10.7 % High 2.0-8.0 Eos % 3.2 % High 0.0-3.0 Baso % 0.6 % Normal 0.0-1.0 Immature Granulocyte % 0.4 % Normal 0-3.0 Nucleated Red Blood Cell % 0.0 % Normal 0-0 Neutrophils # 3.6 10 Normal 1.5-8.5 Lymph # 1.0 10 Low 1.5-5.0 Assumption # 0.6 10 Normal 0.0-0.8 Eos # 0.2 10 Normal 0.0-0.5 Baso # 0.0 10 Normal 0.0-0.2 Vitamin B12 & Folate 01/17/2021 [facility] enter [address] [place] [address] [phone] Vitamin B12 Level 488 pg/mL Normal 14 Folate 14.2 NG/ML Normal 15 Serum Protein Electrophoresis 01/17/2021 [facility] [address] [place] [address] [phone] Albumin % 41.9 % Low 55.8-66.1 Tueyj-1-Rkujvzfe % 4.2 % Normal 2.9-4.9 Zgflh-5-Mwfrcxnjx % 10.6 % Normal 7.1-11.8 Jjma-4-Htxnjmyuu % 32.5 % High 4.7-7.2 Qcnt-1-Bwkzyajzb % 5.3 % Normal 3.2-6.5 Gamma Globulin % 5.5 % Low 11.1-18.8 Albumin 3.35 GM/DL Normal 3.29-5.55 Meyfu-4-Mdkdxtcyi 0.34 GM/DL Normal 0.17-0.41 Xkdwu-5-Okidndtqj 0.85 GM/DL Normal 0.42-0.99 Hqlt-1-Inovjwoqd 2.60 GM/DL High 0.28-0.60 Simh-2-Cppueodyy 0.42 GM/DL Normal 0.19-0.55 Gamma Globulins 0.44 GM/DL Low 0.65-1.58 Total Protein 8.0 GM/DL Normal 6.4-8.2 Spep Interpretation SEE COMMENT Normal 16 Spep Pathologist Review REV'D BY O ADJAP <SEE NOTE> Normal 17 Immunoglobulin G,A,M 01/17/2021 [facility] enter [address] [place] [id number] [phone] Immunoglobulin A 163.0 mg/dL Normal 70-400 Immunoglobulin G 2750 mg/dL High 681-1648 Immunoglobulin M 27.5 mg/dL Low 40-230 Total Iron Binding Capacit 01/17/[address] [address] [phone] Iron (Fe) 79 g/dL Normal 65-175 Total Iron Binding Capacity 330 g/dL Normal 250-450 Percent Saturation 23.9 % Normal 19.7-50.0 Comprehensive Metabolic Profil 01/17/[address] [address] [phone] Glucose, Fasting 93 mg/dL Normal 70-100 Blood [...] Low 3.2-5.2 Albumin/Globulin Ratio 0.6 Normal Free Cotati & Lambda LT Chains 01/17/2021 [facility] [address] [place], [place] [id number] [phone] Free Cotati Light Chains Serum 207.8 mg/L High 3. 3-19.4 Free Lambda Light Chains Serum 16.3 mg/L Normal 5.7-26.3 Cotati/Lambda Ratio Serum 12.75 High 0.26-1.65 19 Laboratory test finding 01/13/2021 Wi-Inr Inr 1.8 Complete Blood Count 01/05/2021 [place] [facility] Palliative Nurse: Dr Peter Cervantes [place], [place] [id number] [phone] WBC 4.7 x10*3/UL 4.1 - 10.9 20 [...] 2.0 - 7.8 Laboratory test finding 01/05/2021 [place] [facility] Instrument Tester kiara kim Palliative Nurse: [place] [address] [phone] Creatine Kinase(CK) 91 U/L 39 - 308 Comprehensive Chem Profile 01/05/2021 [place] Int kiara lizama Palliative Nurse: [place] [address] [phone] Glucose 91 mg/dL 74 - 99 21 [...] 60 mL/min >60 23 Lipid Profile 01/05/2021 [place] , Palliative Nurse: [place] [address] [phone] Cholesterol 142 mg/dL 131 - 200 Triglycerides 67 mg/dL 30 - 150 HDL Cholesterol 53 mg/dL 35 - 60 LDL (Calculated) 76 CALC 50 - 159 Laboratory test finding 01/05/2021 [place] ki[facility] Alvarenga Palliative Nurse: [place] [address] [phone] Thyroid Stimulating Hormone 3.99 uIU/mL High 0.3 6 - 3.74 Laboratory test finding 01/05/2021 [place] kiara Alvarenga Palliative Nurse: [place] [address] [phone] PSA <0.13 ng/mL <4.00 24 Laboratory test finding 01/05/2021 Wi-Inr Inr 3.2 Laboratory test finding 12/08/2020 Wi-Inr Inr 2.6 1 M-SPIKE NOTED IN BETA 1 FAWAD ON. CONCENTRATION = 2.37 GM/DL 2 Units are mL/min/1.73 m2 Chronic Kidney Disease Staging per NKF: Stage I & II GFR >=60 Normal to Mildly Decreased Stage III GFR 30-59 Moderately Decreased Stage IV GFR 15-29 Severely Decreased Stage V GFR <15 Very Little GFR Left ESRD GFR <15 on BAKERY TECHNICIAN 3 Performed at: RN - [facility] [address] [id number] Palliative Nurse: Keyonna Fraser MD, Phone: [phone] DIAGNOSIS CRITERIA MMB ng/ml Relative Index (RI) NON-AMI < or = 5 N/A PRIETO ZONE > 5 < or = 4 AMI > 5 > 4 5 Troponin I Reference Interva l for Siemens [place] LOCI: 99th Percentile= 0.00-0.045 ng/ml Risk Stratification: <= 0.10 ng/ml Decreased Risk for Adverse Clinical Events. 0.10-1.50 ng/ml Increased Risk for Adv erse Clinical Events. Evaluation of additional criterion and/or repeat testing in 2-6 hours is suggested to rule out myocardial damage. >= 1.50 ng/ml Indicative of Myocardial Injury. 6 Units are mL/min/1.73 m2 Chronic Kidney Disease Staging per NKF: Stage I & II GFR >=60 Normal to Mildly Decreased Stage III GFR 30-59 Moderately Decreased Stage IV GFR 15-29 Severely Decreased Stage V GFR <15 Very Little GFR Left ESRD GFR <15 on BAKERY TECHNICIAN 7 DIAGNOSIS CRITERIA MMB ng/ml Relative Index (RI) NON-AMI < or = 5 N/A PRIETO ZONE > 5 < or = 4 AMI > 5 > 4 8 Troponin I Reference Interva l for Siemens [place] LOCI: 99th Percentile= 0.00-0.045 ng/ml Risk Stratification: <= 0.10 ng/ml Decreased Risk for Adverse Clinical Events. 0.10-1.50 ng/ml Increased Risk for Adv erse Clinical Events. Evaluation of additional criterion and/or repeat testing in 2-6 hours is suggested to rule out myocardial damage. >= 1.50 ng/ml Indicative of Myocardial Injury. 9 Testing was performed on a S LIGHTLY hemolyzed specimen. Suggest recollection of specimen for more accurate test results. 10 THERAPUTIC HUMAN INR VALUES INDICATIONS NORMAL RANGES PROPHYLAXIS/TREATMENT OF: VENOUS THROMBOSIS 2.0-3.0 PULMONARY EMBOLISM 2.0-3.0 PREVENTION OF SYSTEMIC EMBOLISM FROM: TISSUE HEART VALVES 2.0-3.0 ACUTE MYOCARDIAL INFARCTION 2.0-3.0 VALVULAR HEART DISEASE 2.0-3.0 ATRIAL FIBRILLATION 2.0-3.0 MECHANICAL VALVES(HIGH RISK) 2.5-3.5 RECURRENT MYOCARDIAL INFARCTION 2.5-3.5 11 100-125 mg/dL PRE-DIABET ES/FASTING >126 mg/dL DIABETES/FASTING 12 CHRONIC KIDNEY DISEASE STAGI NG PER NKF STAGE I & II GFR >= 60 NORMAL TO MILDLY DECREASED STAGE III GFR 30-59 MODERATELY DECREASED STAGE IV GFR 15-29 SEVERELY DECREASED STAGE V GFR <15 VERY LITTLE GFR LEFT ESRD GFR <15 ON BAKERY TECHNICIAN 13 NOTE: RESULT VERIFIED. 14 VITAMIN B12 NORMAL RANGE NORMAL 247 - 911 PG/ML INDETERMINATE 211 - 246 PG/ML DEFICIENT LESS THAN 211 PG/ML 15 FOLATE NORMAL RANGE NORMAL GREATER THAN 5.4 NG/ML INDETERMINATE 3.4-5.4 NG/ML DEFICIENT LESS THAN 3.4 NG/ML 16 M-SPIKE NOTED IN BETA 1 FAWAD ON. CONCENTRATION = 2.42 GM/DL 17 REV'D BY Vicente ENGLISH 18 Units are mL/min/1.73 m2 Chronic Kidney Disease Staging per NKF: Stage I & II GFR >=60 Normal to Mildly Decreased Stage III GFR 30-59 Moderately Decreased Stage IV GFR 15-29 Severely Decreased Stage V GFR <15 Very Little GFR Left ESRD GFR <15 on BAKERY TECHNICIAN 19 Performed at: RN - [facility] [address] [id number] Palliative Nurse: Keyonna Fraser MD, Phone: [phone] NOTE: CBC VERIFIED 21 100-125 mg/dL PRE-DIABET ES/FASTING >126 mg/dL DIABETES/FASTING 22 NOTE: ALBUMIN,T.PROTEIN VERIFIED 23 CHRONIC KIDNEY DISEASE STAGI NG PER NKF STAGE I & II GFR >= 60 NORMAL TO MILDLY DECREASED STAGE III GFR 30-59 MODERATELY DECREASED STAGE IV GFR 15-29 SEVERELY DECREASED STAGE V GFR <15 VERY LITTLE GFR LEFT ESRD GFR <15 ON BAKERY TECHNICIAN 24 This assay was performed on the [employer] EXL using the B- Galactosidase/CPRG methodology and should not be compared interchangeably with other methods. The PSA should not be used alone as a screening test for the presence or absence of malignant disease. Procedures Date Code Description Status 03/09/2021 82165 Est Prevent Med (65Yrs&Ovr) Comp leted 01/06/2021 92547 Office/Outpatient Established Mo d MDM 30-39 Min Completed 04/15/2019 [id number] Colonoscopy Completed 07/02/2017 [id number] Colonoscopy Completed 05/23/2016 [id number] Diabetic Retinal Eye Exam Comple carmen 05/18/2016 [id number] Colonoscopy Completed 01/30/2013 [id number] Mammogram Completed 05/02/2012 [id number] Colonoscopy Completed Medical Devices Description No Information Available Encounters Type Date Location Provider Dx Diagnosis Office Visit 03/09/2021 2:30p [place] InternSabrina kim M.D. 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 D47.2 Monoclonal gammopathy K21.9 Gastro-esophageal reflux dis ease without esophagitis Z68.33 Body mass index [BMI] 33.0-3 3.9, adult Assessments Date Code Description Provider 05/19/2021 I48.0 Paroxysmal atrial fibrillation A jonatan Lizy Polk, [facility] 05/19/2021 I48.0 Paroxysmal atrial fibrillation P rotime 05/19/2021 Z79.01 ad terminal makeup operator (current) use of antic oagulants Lupe Lizy oPlk, [facility] 05/19/2021 Z79.01 residential (current) use of antic oagulants Protime 05/19/2021 Z51.81 Encounter for therapeutic drug l evel monitoring Lupe Lizy Polk, [facility] 05/19/2021 Z51.81 Encounter for therapeutic drug l evel monitoring Protime 05/05/2021 Z51.81 Encounter for therapeutic drug l evel monitoring Lupe Lizy Mcneal, [facility] 05/05/2021 Z51.81 Encounter for therapeutic drug l evel monitoring Protime 05/05/2021 Z79.01 ad terminal makeup operator (current) use of antic oagulants Lupe Lizy Mcneal, [facility] 05/05/2021 Z79.01 ad terminal makeup operator (current) use of antic oagulants Protime 05/05/2021 I48.0 Paroxysmal atrial fibrillation A jonatan Lizy Polk, [facility] 05/05/2021 I48.0 Paroxysmal atrial fibrillation P rotime 04/05/2021 Z51.81 Encounter for therapeutic drug l evel monitoring Lupe Lizy Pokl, [facility] 04/05/2021 Z51.81 Encounter for therapeutic drug l evel monitoring Protime 04/05/2021 Z79.01 ad terminal makeup operator (current) use of antic oagulants Lupe Lizy Polk, [facility] 04/05/2021 Z79.01 residential (current) use of antic oagulants Protime 04/05/2021 I48.0 Paroxysmal atrial fibrillation A jonatan Lizy Polk [facility] 04/05/2021 I48.0 Paroxysmal atrial fibrillation P rotime 03/09/2021 Z00.00 Encounter for genera l adult medical examination without abnormal findings Anna Hoff M.D. 03/09/2021 I48.0 Paroxysmal atrial fibrillation Clark Hoff M.D. 03/09/2021 Z79.01 residential (current) use of antic oagulants Anna Hoff M.D. 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 03/09/2021 N18.31 Chronic kidney disease, stage 3a Anna Hfof M.D. 03/09/2021 I50.32 Chronic diastolic (congestive) h [...] without esophagitis Anna Hoff M.D. 03/08/2021 Z79.01 residential (current) use of antic oagulants Anna Hoff M.D. 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 operator (current) use of antic oagulants Lab Schedule [...] therapeutic drug l evel monitoring Lupe Mayorga, [facility] 03/03/2021 Z51.81 Encounter for therapeutic drug l evel monitoring Protime 03/03/2021 Z79.01 ad terminal makeup operator (current) use of antic oagulants Lupe Mayorga, [facility] 03/03/2021 Z79.01 ad terminal makeup operator (current) use of antic oagulants Protime 03/03/2021 I48.0 Paroxysmal atrial fibrillation A jonatan Lizy Polk, [facility] 03/03/2021 I48.0 Paroxysmal atrial fibrillation P rotime 01/31/2021 Z51.81 Encounter for therapeutic drug l evel monitoring Lupe Mayorga, [facility] 01/31/2021 Z51.81 Encounter for therapeutic drug l evel monitoring Protime 01/31/2021 I48.0 Paroxysmal atrial fibrillation A jonatan Lizy Polk, [facility] 01/31/2021 I48.0 Paroxysmal atrial fibrillation P rotime 01/31/2021 Z79.01 residential (current) use of antic oagulants Lupe Mayorga, [facility] 01/31/2021 Z79.01 residential (current) use of antic oagulants Protime 01/13/2021 Z51.81 Encounter for therapeutic drug l evel monitoring Lupe Mayorga, [facility] 01/13/2021 I48.0 Paroxysmal atrial fibrillation P rotime 01/13/2021 Z79.01 residential (current) use of antic oagulants Lupe Mayorga, [facility] 01/13/2021 Z51.81 Encounter for therapeutic drug l evel monitoring Protime 01/13/2021 I48.0 Paroxysmal atrial fibrillation A jonatan Mayorga, [facility] 01/06/2021 I13.0 Hypertensive heart a nd chronic [...] atrial fibrillation Clark Hoff M.D. 01/06/2021 Z79.01 residential (current) use of antic oagulants Anna Hoff [...] therapeutic drug l evel monitoring Lupe Mayorga [facility] 01/05/2021 I48.0 Paroxysmal atrial fibrillation Clark Hoff M.D. 01/05/2021 I48.0 Paroxysmal atrial fibrillation A jonatan Mayorga, [facility] 01/05/2021 Z51.81 Encounter for therapeutic drug l evel monitoring Protime 01/05/2021 Z79.01 ad terminal makeup operator (current) use of antic oagulants Lupe Mayorga, [facility] 01/05/2021 I48.0 Paroxysmal atrial fibrillation L ab Schedule 01/05/2021 I48.0 Paroxysmal atrial fibrillation P rotime 01/05/2021 Z79.01 residential (current) use of antic oagulants Protime 01/05/2021 [...] therapeutic drug l evel monitoring Lupe Mayorga, [facility] 12/08/2020 Z51.81 Encounter for therapeutic drug l evel monitoring Protime 12/08/2020 I48.0 Paroxysmal atrial fibrillation A jonatan Mayorga, [employer] 12/08/2020 I48.0 Paroxysmal atrial fibrillation P rotime 12/08/2020 Z79.01 residential (current) use of antic oagulants Lupe Mayorga, [employer] 12/08/2020 Z79.01 residential (current) use of antic oagulants Protime Plan of Treatment Future Appointment(s):* 06/21/2021 2:15 pm - Swapna at [facility] * 06/06/2021 11:30 am - Anna Hoff M.D. at [facility] 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 Colonic polyps. Follows with Dr. Ruffin.13. Inflammatory polyarthropathy. No longer seeing [id number]. Cirrhosis. RODRÍGUEZ and auto immune per Dr. Ruffin.15. Hyperlipidemia. Continue Trueugrosfnf41. MGUS. Seeing Josh. He will have a PET scan shortly as well as possible bone marrow biopsy.17. Health Maintenance. He refuses Medicare Wellness, he is resistant to vaccines but had his COVID shots. Tetanus will be boostered. He does get an annual flu shot. He has not done Shingrix shot and is not interested. Pneumovax at 65 at [facility] date unclear. Consider Booster. Functional Status Description No Information Available Mental Status Description No Information Available Referrals Description No Information Available
--- OUTSIDE RECORDS SUMMARY | 2021-08-25 17:30 | CCD ---
Author Author [facility] Organization [facility] Address Unknown Phone Unavailable Care Team Providers Care Bingo Worker Name Role Phone Enrico Hoff MD Unavailable Unavailable Enrico Hoff MD Unavailable Unavailable Enrico Hoff MD Unavailable Unavailable Enrico Hoff MD Unavailable Unavailable Enrico Hoff MD Unavailable Unavailable Enrico Hoff MD Unavailable Unavailable Enrico Hoff MD Unavailable Unavailable Enrico Hoff MD Unavailable Unavailable Enrico Hoff MD Unavailable Unavailable Enrico Hoff MD Unavailable Unavailable Enrico Hoff MD Unavailable Unavailable Enrico Hoff MD Unavailable Unavailable Enrico Hoff MD Unavailable Unavailable Enrico Hoff MD Unavailable Unavailable Enrico Hoff MD Unavailable Unavailable Enrico Hoff MD Unavailable Unavailable Enrico Hoff MD Unavailable Unavailable Luis EduardoEnrico MD Unavailable Unavailable Luis EduardoEnrico MD Unavailable Unavailable Luis EduardoEnrico MD Unavailable Unavailable Luis EduardoEnrico MD Unavailable Unavailable Luis EduardoEnrico MD Unavailable Unavailable Luis EduardoEnrico MD Unavailable Unavailable Luis EduardoEnrico MD Unavailable Unavailable Luis EduardoEnrico MD Unavailable Unavailable Luis EduardoEnrico MD Unavailable Unavailable Luis EduardoEnrico MD Unavailable Unavailable Luis EduardoEnrico MD Unavailable Unavailable Luis EduardoEnrico MD Unavailable Unavailable Luis EduardoEnrico MD Unavailable Unavailable Luis EduardoEnrico MD Unavailable Unavailable Luis EduardoEnrico MD Unavailable Unavailable Luis EduardoEnrico MD Unavailable Unavailable Luis EduardoEnrico MD Unavailable Unavailable Luis EduardoEnrico MD Unavailable Unavailable Luis EduardoEnrico MD Unavailable Unavailable Luis EduardoEnrico MD Unavailable Unavailable Enrico Hfof MD Unavailable Unavailable Enrico Hoff MD Unavailable Unavailable Enrico Hoff MD Unavailable Unavailable Luis EduardoEnrico garcia MD Unavailable Unavailable Enrico Hoff MD Unavailable Unavailable Enrico Hoff MD Unavailable Unavailable Enrico Hoff MD Unavailable Unavailable Enrico Hoff MD Unavailable Unavailable Enrico Hoff MD Unavailable Unavailable Enrico Hoff MD Unavailable Unavailable Enrico Hoff MD Unavailable Unavailable Enrico Hoff MD Unavailable Unavailable Enrico Hoff MD Unavailable Unavailable Enrico Hoff MD Unavailable Unavailable Enrico Hoff MD Unavailable Unavailable Enrico Hoff MD Unavailable Unavailable Enrico Hoff MD Unavailable Unavailable Enrico Hoff MD Unavailable Unavailable Enrico Hoff MD Unavailable Unavailable Enrico Hoff MD Unavailable Unavailable Enrico Hoff MD Unavailable Unavailable Enrico Hoff MD Unavailable Unavailable Enrico Hoff MD Unavailable Unavailable Enrico Hoff MD Unavailable Unavailable Luis EduardoEnrico MD Unavailable Unavailable Enrico Hoff MD Unavailable Unavailable Enrico Hoff MD Unavailable Unavailable Enrico Hoff MD Unavailable Unavailable Enrico Hoff MD Unavailable Unavailable Luis EduardoEnrico MD Unavailable Unavailable Luis EduardoEnrico MD Unavailable Unavailable Enrico Hoff MD Unavailable Unavailable Enrico Hoff MD Unavailable Unavailable Enrico Hoff MD Unavailable Unavailable Enrico Hoff MD Unavailable Unavailable Enrico Hoff MD Unavailable Unavailable Enrico Hoff MD Unavailable Unavailable Enrico Hoff MD Unavailable Unavailable Enrico Hoff MD Unavailable Unavailable Enrico Hoff MD Unavailable Unavailable Enrico Hoff MD Unavailable Unavailable Enrico Hoff MD Unavailable Unavailable Enrico Hoff MD Unavailable Unavailable Enrico Hoff MD Unavailable Unavailable Enrico Hoff MD Unavailable Unavailable Enrico Hoff MD Unavailable Unavailable Enrico Hoff MD Unavailable Unavailable Thien Meneses MD Unavailable Unavailable Thien Meneses MD Unavailable Unavailable Thien Meneses MD Unavailable Unavailable Thien Meneses MD Unavailable Unavailable Elmira Menesestech Unavailable Unavailable Thien Meneses MD Unavailable Unavailable Thien Meneses MD Unavailable Unavailable Thien Meneses MD Unavailable Unavailable Elmira Menesestech Unavailable Unavailable Elmira Menesestech Unavailable Unavailable Elmira Menesestech Unavailable Unavailable Thien Meneses MD Unavailable Unavailable Thien Meneses MD Unavailable Unavailable Thien Meneses MD Unavailable Unavailable Thien Meneses MD Unavailable Unavailable Thien Meneses MD Unavailable Unavailable Thien Meneses MD Unavailable Unavailable Thien Meneses MD Unavailable Unavailable Elmira Menesestech Unavailable Unavailable Thien Meneses MD Unavailable Unavailable Elmira Menesestech Unavailable Unavailable Elmira Menesestech Unavailable Unavailable Elmira Menesestech Unavailable Unavailable Elmira Menesestech Unavailable Unavailable Thien Meneses MD Unavailable Unavailable Elmira Menesestech Unavailable Unavailable Thien Meneses MD Unavailable Unavailable Elmira Menesestech Unavailable Unavailable Elmira Menesestech Unavailable Unavailable Grant Menesesjtech Unavailable Unavailable Elmira Menesestech Unavailable Unavailable Elmira Menesestech Unavailable Unavailable Thien Meneses MD Unavailable Unavailable Slezka, Vojtech Unavailable Unavailable Slezka, Vojtech MD Unavailable Unavailable Slezka, Vojtech MD Unavailable Unavailable Slezka, Vojtech MD Unavailable Unavailable Slezka, Vojtech MD Unavailable Unavailable Slezka, Vojtech MD Unavailable Unavailable Slezka, Vojtech MD Unavailable Unavailable Slezka, Vojtech MD Unavailable Unavailable Slezka, Vojtech MD Unavailable Unavailable Slezka, Vojtech MD Unavailable Unavailable Slezka, Vojtech MD Unavailable Unavailable Slezka, Vojtech MD Unavailable Unavailable Slezka, Vojtech MD Unavailable Unavailable Slezka, Vojtech MD Unavailable Unavailable Slezka, Vojtech MD Unavailable Unavailable Slezka, Vojtech MD Unavailable Unavailable Slezka, Vojtech MD Unavailable Unavailable Slezka, Vojtech MD Unavailable Unavailable Slezka, Vojtech MD Unavailable Unavailable Slezka, Vojtech MD Unavailable Unavailable Slezka, Vojtech MD Unavailable Unavailable Slezka, Vojtech MD Unavailable Unavailable Slezka, Vojtech MD Unavailable Unavailable Slezka, Vojtech MD Unavailable Unavailable Slezka, Vojtech MD Unavailable Unavailable Jeanne Tavarez, Beverly Cope MD, FACS Unavailable Unavailable Angel Tavarez, Beverly Cope MD, FACS Unavailable Unavailable Angel Tavarez, Beverly Cope MD, FACS Unavailable Unavailable Angel Tavarez, Beverly Cope MD, FACS Unavailable Unavailable Angel Tavarez, Beverly Cope MD, FACS Unavailable Unavailable Angel Tavarez, Beverly Cope MD, FACS Unavailable Unavailable Angel Tavarez, Beverly Cope MD, FACS Unavailable Unavailable Angel Tavarez, Beverly Cope MD, FACS Unavailable Unavailable Angel Tavarez, Beverly Cope MD, FACS Unavailable Unavailable Angel Tavarez, Beverly Cope MD, FACS Unavailable Unavailable Angel Tavarez, Beverly Cope MD, FACS Unavailable Unavailable Angel Tavarez, Beverly Cope MD, FACS Unavailable Unavailable Angel Tavarez, Beverly Cope MD, FACS Unavailable Unavailable Angel Tavarez, Beverly Cope MD, FACS Unavailable Unavailable Angel Tavarez, Beverly Cope MD, FACS Unavailable Unavailable Angel Tavarez, Beverly Cope MD, FACS Unavailable Unavailable Angel Tavarez, Beverly Cope MD, FACS Unavailable Unavailable Angel Tavarez, Beverly Cope MD, FACS Unavailable Unavailable Angel Tavarez, Beverly Cope MD, FACS Unavailable Unavailable Angel Tavarez, Beverly Cope MD, FACS Unavailable Unavailable Angel Tavarez, Beverly Cope MD, FACS Unavailable Unavailable Angel Tavarez, Beverly Cope MD, FACS Unavailable Unavailable Angel Tavarez, Beverly Cope MD, FACS Unavailable Unavailable Angel Tavarez, Beverly Cope MD, FACS Unavailable Unavailable Angel Tavarez, Beverly Cope MD, FACS Unavailable Unavailable Angel Tavarez, Beverly Cope MD, FACS Unavailable Unavailable Angel Tavarez, Beverly Cope MD, FACS Unavailable Unavailable Angel Tavarez, Beverly Cope MD, FACS Unavailable Unavailable Angel Tavarez, Beverly Cope MD, FACS Unavailable Unavailable Angel Tavarez, Beverly Cope MD, FACS Unavailable Unavailable Angel Tavarez, Beverly Cope MD, FACS Unavailable Unavailable Angel Tavarez, Beverly Cope MD, FACS Unavailable Unavailable Angel Tavarez, Beverly Cope MD, FACS Unavailable Unavailable Angel Tavarez, Beverly Cope MD, FACS Unavailable Unavailable Angel Tavarez, Beverly Cope MD, FACS Unavailable Unavailable Angel Tavarez, Beverly Cope MD, FACS Unavailable Unavailable Angel Tavarez, Beverly Cope MD, FACS Unavailable Unavailable Angel Tavarez, Beverly Cope MD, FACS Unavailable Unavailable Angel Tavarez, Beverly Cope MD, FACS Unavailable Unavailable Nunes, Aki Unavailable Unavailable Nunes, Aki Unavailable Unavailable Nunes, Aki Unavailable Unavailable Nunes, Aki Unavailable Unavailable Nunes, Aki Unavailable Unavailable Nunes, Aki Unavailable Unavailable Nunes, Aki Unavailable Unavailable Nunes, Aki Unavailable Unavailable Nunes, Aki Unavailable Unavailable Nunse, Aki Unavailable Unavailable Nunes, Aki Unavailable Unavailable Unnes, Aki Unavailable Unavailable Nunes, Aki Unavailable Unavailable Nunes, Aki Unavailable Unavailable Nunes, Aki Unavailable Unavailable Nunes, Aki Unavailable Unavailable Nunes, Aki Unavailable Unavailable Nunes, Aki Unavailable Unavailable Nunes, Aki Unavailable Unavailable Nunes, Aki Unavailable Unavailable Nunes, Aki Unavailable Unavailable Nunes, Aki Unavailable Unavailable Nunes, Aki Unavailable Unavailable Nunes, Aki Unavailable Unavailable Nunes, Aki Unavailable Unavailable Nunes, Aki Unavailable Unavailable Nunes, Aki Unavailable Unavailable Nunes, Aki Unavailable Unavailable Nunes, Aki Unavailable Unavailable Nunes, Aki Unavailable Unavailable Nunes, Aki Unavailable Unavailable Nunes, Aki Unavailable Unavailable Nunes, Aki Unavailable Unavailable Nunes, Aki Unavailable Unavailable Nunes, Aki Unavailable Unavailable Nunes, Aki Unavailable Unavailable Nunes, Aki Unavailable Unavailable Nunes, Aki Unavailable Unavailable Nunes, Aki Unavailable Unavailable Nunes, Aki Unavailable Unavailable Nunes, Aki Unavailable Unavailable Nunes, Aki Unavailable Unavailable Nunes, Aki Unavailable Unavailable Nunes, Aki Unavailable Unavailable Nunes, Aki Unavailable Unavailable Nunes, Aki Unavailable Unavailable Nunes, Aki Unavailable Unavailable Nunes, Aki Unavailable Unavailable Nunes, Aki Unavailable Unavailable Nunes, Aki Unavailable Unavailable Nunes, Aki Unavailable Unavailable Nunes, Aki Unavailable Unavailable Nunes, Aki Unavailable Unavailable Nunes, Aki Unavailable Unavailable Nunes, Aki Unavailable Unavailable Nunes, Aki Unavailable Unavailable Nunes, Aki Unavailable Unavailable Nunes, Aki Unavailable Unavailable Nunes, Aki Unavailable Unavailable Nunes, Aki Unavailable Unavailable Nunes, Aki Unavailable Unavailable Nunes, Aki Unavailable Unavailable Nunes, Aki Unavailable Unavailable Nunes, Aki Unavailable Unavailable Nunes, Aki Unavailable Unavailable Nunes, Aki Unavailable Unavailable Nunes, Aki Unavailable Unavailable Nunes, Aki Unavailable Unavailable Nunes, Aki Unavailable Unavailable Nunes, Kai Unavailable Unavailable Nunes, Aki Unavailable Unavailable Nunes, Aki Unavailable Unavailable Nunes, Aki Unavailable Unavailable Nunes, Aki Unavailable Unavailable Nunes, Aki Unavailable Unavailable Nunes, Aki Unavailable Unavailable Nunes, Aki Unavailable Unavailable Nunes, Aki Unavailable Unavailable Nunes, Aki Unavailable Unavailable John Sheppard MD Unavailable Unavailable SheppardJohn MD Unavailable Unavailable John Sheppard MD Unavailable Unavailable John Sheppard MD Unavailable Unavailable John Sheppard MD Unavailable Unavailable John Sheppard MD Unavailable Unavailable John Sheppard MD Unavailable Unavailable John Sheppard MD Unavailable Unavailable John Sheppard MD Unavailable Unavailable John Sheppard MD Unavailable Unavailable John Sheppard MD Unavailable Unavailable John Sheppard MD Unavailable Unavailable John Sheppard MD Unavailable Unavailable John Sheppard MD Unavailable Unavailable John Sheppard MD Unavailable Unavailable John Sheppard MD Unavailable Unavailable John Sheppard MD Unavailable Unavailable John Sheppard MD Unavailable Unavailable John Sheppard MD Unavailable Unavailable John Sheppard MD Unavailable Unavailable John Sheppard MD Unavailable Unavailable John Sheppard MD Unavailable Unavailable John Sheppard MD Unavailable Unavailable John Sheppard MD Unavailable Unavailable John Sheppard MD Unavailable Unavailable John Sheppard MD Unavailable Unavailable John Sheppard MD Unavailable Unavailable John Sheppard MD Unavailable Unavailable John Sheppard MD Unavailable Unavailable John Sheppard MD Unavailable Unavailable John Sheppard MD Unavailable Unavailable John Sheppard MD Unavailable Unavailable John Sheppard MD Unavailable Unavailable John Sheppard MD Unavailable Unavailable John Sheppard MD Unavailable Unavailable John Sheppard MD Unavailable Unavailable John Sheppard MD Unavailable Unavailable John Sheppard MD Unavailable Unavailable John Sheppard MD Unavailable Unavailable John Sheppard MD Unavailable Unavailable John Sheppard MD Unavailable Unavailable John Sheppard MD Unavailable Unavailable John Sheppard MD Unavailable Unavailable John Sheppard MD Unavailable Unavailable John Sheppard MD Unavailable Unavailable John Sheppard MD Unavailable Unavailable John Sheppard MD Unavailable Unavailable John Sheppard MD Unavailable Unavailable John Sheppard MD Unavailable Unavailable John Sheppard MD Unavailable Unavailable John Sheppard MD Unavailable Unavailable John Sheppard MD Unavailable Unavailable John Sheppard MD Unavailable Unavailable John Sheppard MD Unavailable Unavailable Enrico Hoff MD Unavailable Unavailable Luis EduardoEnrico MD Unavailable Unavailable Luis EduardoEnrico MD Unavailable Unavailable Luis EduardoEnrico MD Unavailable Unavailable Luis EduardoEnrico MD Unavailable Unavailable Luis EduardoEnrico MD Unavailable Unavailable Luis EduardoEnrico MD Unavailable Unavailable Luis EduardoEnrico MD Unavailable Unavailable Luis EduardoEnrico MD Unavailable Unavailable Luis EduardoEnrico MD Unavailable Unavailable Luis EduardoEnrico garcia MD Unavailable Unavailable Luis EduardoEnrico MD Unavailable Unavailable Luis EduardoEnrico MD Unavailable Unavailable Luis EduardoEnrico MD Unavailable Unavailable Luis EduardoEnrico MD Unavailable Unavailable Luis EduardoEnrioc MD Unavailable Unavailable Luis EduardoEnrico MD Unavailable Unavailable Luis EduardoEnrico MD Unavailable Unavailable Luis EduardoEnrico MD Unavailable Unavailable Luis EduardoEnrico MD Unavailable Unavailable Luis EduardoEnrico cooley MD Unavailable Unavailable Enrico Hoff MD Unavailable Unavailable Enrico Hoff MD Unavailable Unavailable Luis EduardoEnrico garcia MD Unavailable Unavailable Enrico Hoff MD Unavailable Unavailable Enrico Hoff MD Unavailable Unavailable Enrico Hoff MD Unavailable Unavailable Enrico Hoff MD Unavailable Unavailable Enrico Hoff MD Unavailable Unavailable Enrico Hoff MD Unavailable Unavailable Enrico Hoff MD Unavailable Unavailable Enrico Hoff MD Unavailable Unavailable Enrico Hoff MD Unavailable Unavailable Enrico Hoff MD Unavailable Unavailable Enrico Hoff MD Unavailable Unavailable Enrico Hoff MD Unavailable Unavailable Enrico Hoff MD Unavailable Unavailable Enrico Hoff MD Unavailable Unavailable Enrico Hoff MD Unavailable Unavailable Enrico Hoff MD Unavailable Unavailable Enrico Hoff MD Unavailable Unavailable Enrico Hoff MD Unavailable Unavailable Enrico Hoff MD Unavailable Unavailable Luis EduardoEnrico garcia MD Unavailable Unavailable Enrico Hoff MD Unavailable Unavailable Enrico Hoff MD Unavailable Unavailable Enrico Hoff MD Unavailable Unavailable Enrico Hoff MD Unavailable Unavailable Enrico Hoff MD Unavailable Unavailable Enrico Hoff MD Unavailable Unavailable Luis EduardoEnrico garcia MD Unavailable Unavailable Luis EduardoEnrico MD Unavailable Unavailable Luis Eduardo, Enrico Castillo MD Unavailable Unavailable Luis Eduardo, Enrico Castillo MD Unavailable Unavailable Luis Eduardo, M Anna FIELD Unavailable Unavailable Luis Eduardo, M Anna FIELD Unavailable Unavailable Luis Eduardo, Enrico Castillo MD Unavailable Unavailable Luis Eduardo, Enrico Castillo MD Unavailable Unavailable Luis Eduardo, M Anna FIELD Unavailable Unavailable Luis Eduardo, Enrico Castillo MD Unavailable Unavailable Luis Eduardo, Enrico Castillo MD Unavailable Unavailable Luis Eduardo, M Anna FIELD Unavailable Unavailable Luis Eduardo, Enrico Castillo MD Unavailable Unavailable Luis Eduardo, Enrico Castillo MD Unavailable Unavailable Luis Eduardo, M Anna FIELD Unavailable Unavailable Luis Eduardo, M Anna FIELD Unavailable Unavailable Luis Eduardo, M Anna FIELD Unavailable Unavailable Luis Eduardo, M Anna FIELD Unavailable Unavailable Luis Eduardo, M Anna FIELD Unavailable Unavailable Luis Eduardo, M Anna FIELD Unavailable Unavailable Luis Eduardo, M Anna FIELD Unavailable Unavailable Luis Eduardo, Enrico Castillo MD Unavailable Unavailable Luis Eduardo, Enrico Castillo MD Unavailable Unavailable Luis Eduardo, Enrico Castillo MD Unavailable Unavailable Luis EduardoEnrico MD Unavailable Unavailable Luis Eduardo, Enrico Castillo MD Unavailable Unavailable Luis Eduardo, M Anna FIELD Unavailable Unavailable Luis Eduardo, Enrico Castillo MD Unavailable Unavailable Luis Eduardo, M Anna FIELD Unavailable Unavailable Luis Eduardo, M Anna FIELD Unavailable Unavailable Luis Eduardo, M Anna FIELD Unavailable Unavailable Luis Eduardo, M Anna FIELD Unavailable Unavailable Luis Eduardo, M Anna FIELD Unavailable Unavailable Luis Eduardo, M Anna FIELD Unavailable Unavailable Re-disclosure Warning The records that you are about to access may contain information from federally-assisted alcohol or drug abuse programs. If such information is present, then the following federally mandated warning applies: This information has been disclosed to you from records protected by federal confidentiality rules (42 CFR part 2). The federal rules prohibit you from making any further disclosure of this information unless further disclosure is expressly permitted by the written consent of the person to whom it pertains or as otherwise permitted by 42 CFR part 2. A general authorization for the release of medical or other information is NOT sufficient for this purpose. The Federal rules restrict any use of the information to criminally investigate or prosecute any alcohol or drug abuse patient.The records that you are about to access may contain highly sensitive health information, the redisclosure of which is protected by Article 27-F of the [facility] Public Health law. If you continue you may have access to information: Regarding HIV / AIDS; Provided by facilities licensed or operated by the [facility] Office of Mental Health; or Provided by the [facility] Office for People With Developmental Disabilities. If such information is present, then the following [facility] mandated warning applies: This information has been disclosed to you from confidential records which are protected by state law. State law prohibits you from making any further disclosure of this information without the specific written consent of the person to whom it pertains, or as otherwise permitted by law. Any unauthorized further disclosure in violation of state law may result in a fine or alf sentence or both. A general authorization for the release of medical or other information is NOT sufficient authorization for further disc losure. Allergies and Adverse Reactions Type Description Substance Reaction Status Data Source(s ) Allergy to substance No Known Allergies No known allergies (situation ) LESIA (Anatoliy Tavarez MD [facility]) Family History Family Member Name Family Member Gender Family Member Status Date o f Status Description Data Source(s) Unknown Male Diagnosis 02/03/2015 12:00:00 AM EDT [facility] ([facility]) Encounters Encounter Providers Location Date Indications Data Source(s ) Outpatient Attender: Aki Nunes 09/06/2021 12:00:00 AM [facility] Outpatient Referrer: Thien FLORESCT-SJP.SYR 07/07 12:00:00 AM EDT [facility] Outpatient Attender: Thien Meneses MDConsultant: Gilberto FLORESKENTRELL-SJAdriana.KENTRELL 07/26/2021 04:14:53 PM EDT - 07/27/2021 08:30:38 AM EDT [facility] Outpatient Attender: Misael Godfrey/Leatha/Kaylyn kahn 07/18/2021 01:15:00 PM EDT [facility] ([facility]) Outpatient Attender: Anna Best 11:30:00 AM EDT [facility] ([facility] ) Outpatient Attender: Tihen RAIN.KENTRELL-SJP.KENTRELL 03/06 12:00:00 AM EDT [facility] Outpatient Attender: Anna Best 02:30:00 PM EDT [facility] ([facility] ) Outpatient Attender: Thien FLORESKENTRELL-SJP.KENTRELL 02/03 09:20:27 AM EDT - 02/21/2021 10:25:31 AM EDT [facility] Outpatient Attender: Aki Nunes 01/18/2021 12:00:00 AM [facility] Outpatient Attender: Anna Best 01:15:00 PM EST [facility] ([facility] ) Outpatient Attender: Thien RAIN.KENTRELL-SJP.KENTRELL 11/05 12:00:00 AM EST - 11/23/2020 03:24:46 PM EST [facility] Outpatient 11/18/2020 06:32:45 AM EST [facility] <td ID="encounterTypeDescriptionID0">1 Y ear Follow-Up</td><td>Anatoliy Tavarez MD, FACS</td><td>Anatoliy Mosley MD [facility]</td><td>11/17/2020</td><td>1:35PM</td><td>2:15PM</td><td><content ID="encounterDiagnosisID0-0">History of Nicotine Dependence</content>, <content ID="encounterDiagnosisID0-1">Essential Hypertension</content>, <content ID="encounterDiagnosisID0-2">Retinopathy Hypertensive Both Eyes</content>, <content ID="encounterDiagnosisID0-3">Dry Eye Syndrome Both Eyes</content>, <content ID="encounterDiagnosisID0-4">Vitreous Disorders Degeneration</content ></td>Outpatient Attender: Anatoliy Tavarez MD, FACS Anatoliy Mosley MD [facility] 11/17/2020 01:35:00 PM EST - 11/17/2020 02:15:00 PM EST Vitreous Disorders DegenerationDry Eye Syndrome Both EyesRetinopathy Hypertensive Both EyesEssential HypertensionHistory of Nicotine Dependence LESIA (Anatoliy Tavarez MD [facility]) 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 Essential Hypertension History of Nicotine Dependence Outpatient 11/09/2020 12:29:40 PM EST [facility] Outpatient Attender: Anna Best 12:15:00 PM EST [facility] ([facility] ) ([id number]) For [facility] [place] [address] [place] [address] 10/08/2020 12:00:00 AM EST eCW1 ([facility]) ([id number]) For [facility] [place] [address] [place] [address] 09/17/2020 12:00:00 AM EST eCW1 ([facility]) [facility] [address] 09/10/2020 12:00:00 AM EST eCW1 ([facility]) ([id number]) Est New Patient [address] [place] [address] 09/02/2020 12:00:00 AM EDT eCW1 ([facility]) ([id number]) For [facility] [place] [address] [place] [address] 08/27/2020 12:00:00 AM EDT eCW1 ([facility]) ([id number]) For [facility] [place] [address] [place] [address] 08/13/2020 12:00:00 AM EDT eCW1 ([facility]) Office Visit, Est Pt., Level 3 PC [address] [address] 08/06/2020 12:00:00 AM EDT eCW1 ([facility]) Outpatient Attender: Anna Best 02:45:00 PM EDT [facility] ([facility] ) Outpatient Attender: Aki NunesReferrer: Anna Rai [id number] 07/19/2020 12:00:00 AM EDT - 07/19/2020 04:01:54 PM EDT Malignant neoplasm of prostate [facility] Malignant neoplasm of prostate Immunizations Vaccine Date Status Description Data Source(s) Td (adult) preservative free 03/09/2021 03:21:00 PM EDT completed [facility] ([facility]) COVID-19 VACCINE Moderna 11/25/2020 12:00:00 AM EST completed NYSIIS Vaccine Series Complete: YESThis Data wa s Submitted to [facility] [employer]. COVID-19 VACCINE Moderna 11/20/2020 12:00:00 AM EST completed [facility]SIIS Vaccine Series Complete: NOThis Data was Submitted to [facility] [employer]. IIV3. This is one of two codes replacing CVX 15, which is being retired. 08/13/2020 03:20:00 PM EDT completed eCW1 ([facility]) IIV3. This is one of two codes replacing CVX 15, which is being retired. 08/13/2020 03:20:00 PM EDT completed eCW1 ([facility]) IIV3. This is one of two codes replacing CVX 15, which is being retired. 08/13/2020 03:20:00 PM EDT completed eCW1 ([facility]) IIV3. This is one of two codes replacing CVX 15, which is being retired. 08/13/2020 03:20:00 PM EDT completed eCW1 ([facility]) IIV3. This is one of two codes replacing CVX 15, which is being retired. 08/13/2020 03:20:00 PM EDT completed eCW1 ([facility])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 DIABETES/FASTING Urea nitrogen [Mass/volume] in Serum or Plasma 20 mg/dL 7-18 [facility] ([facility]) Potassium [Moles/volume] in Serum or Plasma 3.4 meq/L 3.5-5.1 [facility] ([facility]) Creatinine 1.1 mg/dL 0.6-1.3 [facility] Sodium [Moles/volume] in Serum or Plasma 143 meq/L 136-145 [facility] ([facility]) Carbon dioxide, total [Moles/volume] in Serum or Plasma 34 meq/L 21 -32 [facility] ([facility]) Calcium [Mass/volume] in Serum or Plasma 10.1 mg/dL 8.5-10.1 [facility] ([facility]) Chloride [Moles/volume] in Serum or Plasma 103 meq/L 98-107 [facility] ([facility]) Total Bilirubin 0.6 mg/dL 0.2-1.0 [facility] ([facility]) Aspartate aminotransferase [Enzymatic activity/volume] in Serum or Plasma 26 U/L 15-37 [facility] ([facility] ) Alkaline phosphatase isoenzyme [Units/volume] in Serum or Pl asma 78 mg/dL 46-116 [facility] ([facility]) Albumin [Mass/volume] in Serum or Plasma 3.0 g/dL 3.4-5.0 [facility] ([facility]) Alanine aminotransferase [Enzymatic activity/volume] in Seru m or Plasma 20 U/L 12-78 [facility] ([facility]) A/G Ratio 0.64 CALC 1.00-1.90 [facility] Proteinase 3 Ab [Units/volume] in Serum 7.7 g/dL 6.4-8.2 [facility] ([facility]) Glomerular filtration rate/1.73 sq M pre dicted among non-blacks [Volume Rate/Area] in Serum or Plasma by Creatinine-based formula (MDRD) Laboratory test result [facility] ([facility] ) Glomerular filtration rate/1.73 sq M pre dicted among blacks [Volume Rate/Area] in Serum or Plasma by Creatinine-based formula (MDRD) Laboratory test result [facility] ([facility]) <content>CHRONIC KIDNEY DISEASE STAGING PER NKF</content>
<content></content>
<content>STAGE I & II GFR >= 60 NORMAL TO MILDLY DECREASED</content>
<content>STAGE III GFR 30-59 MODERATELY DECREASED</content>
<content>STAGE IV GFR 15-29 SEVERELY DECREASED</content>
<content>STAGE V GFR <15 VERY LITTLE GFR LEFT</content>
<content>ESRD GFR <15 ON PET ADOPTION COUNSELOR</content>
<content></content> ID Date Data Source [id number] 06/06/2021 12:26:00 PM EDT [facility] ([facility]) Name Value Range Interpretation Code Description Data Maddy rce(s) Supporting Document(s) Leukocytes [#/volume] in Blood by Automated count 4.7 x10*3/UL 4.1-10 .9 [facility] ([facility]) Hematocrit [Volume Fraction] of Blood by Automated count 36.0 % 3 7.0-51.0 [facility] ([facility]) Hemoglobin [Mass/volume] in Blood 11.8 g/dL 12.0-18.0 [facility] ([facility]) Erythrocytes [#/volume] in Blood by Automated count 3.78 x10*6/UL 4.2 0-6.30 [facility] ([facility]) MCV 95.2 fL 80.0-97.0 [facility] [facility] MCH 31.3 pg 26.0-32.0 [facility] ([place] [facility]) MCHC 32.8 g/dL 31.0-38.0 [facility] [facility] Erythrocyte distribution width [Ratio] by Automated count 15.7 % 11.6-13.7 [facility] ([facility]) MPV 10.4 FL 7.8-11.0 [facility] ([place] [facility]) Platelets [#/volume] in Blood by Automated count 66 x10*3/UL 140-440 [facility] ([facility]) NOTE: RESULT VERIFIED. Neut % 59.9 % 37.0-92.0 [facility] ([place] [facility]) Mid % 8.5 % 1.7-9.3 [facility] ([place] [facility] Lymph % 31.6 % 10.0-58.5 [facility] ([place] [facility]) Mid # 0.4 x10*3/UL 0.1-0.6 [facility] ([facility]) Lymph # 1.5 x10*3/UL 0.6-4.1 [facility] ([facility]) Neut # 2.8 x10*3/UL 2.0-7.8 [facility] ([facility]) ID Date Data Source [id number] 05/19/2021 02:53:00 PM EDT [facility] ([facility]) Name Value Range Interpretation Code Description Data Maddy rce(s) Supporting Document(s) INR in Platelet poor plasma by Coagulation assay 2.5 [facility] ([facility]) ID Date Data Source [id number] 04/29/2021 01:26:00 PM EDT [facility] ([facility]) Name Value Range Interpretation Code Description Data Maddy rce(s) Supporting Document(s) Red Blood Count 3.78 10 4.30-6.10 [facility] ([facility]) White Blood Count 4.5 10 4.0-10.0 [facility] ([facility]) Hemoglobin 12.0 g/dL 13.5-17.5 [facility] Hematocrit 38.3 % 42.0-52.0 [facility] Mean Corpuscular Volume 101.3 fl 80.0-96.0 [facility] Mean Corpuscular Hemoglobin 31.7 pg 27.0-33.0 [facility] ([facility]) Red Cell Distribution Width 16.0 % 11.5-14.5 [facility] ([facility]) Mean Corpuscular HGB Conc 31.3 g/dL 32.0-36.5 [facility] ([facility]) Platelet Count, Automated 60 10 150-450 [facility] ([facility]) Lymph % 26.5 % 24.0-44.0 [facility] ([place] [facility]) Neutrophils % 60.8 % 36.0-66.0 [facility] ([facility]) Eos % 2.2 % 0.0-3.0 [facility] ([place] [facility] [place] % 9.4 % 2.0-8.0 [facility] ([place] [facility]) Nucleated Red Blood Cell % 0.0 % 0-0 [facility] ([facility]) Immature Granulocyte % 0.4 % 0-3.0 [facility] ([facility]) Baso % 0.7 % 0.0-1.0 [facility] ([place] [facility] Neutrophils # 2.7 10 1.5-8.5 [facility] ([facility]) Lymph # 1.2 10 1.5-5.0 [facility] ([place] [facility] [place] # 0.4 10 0.0-0.8 [facility] ([place] [facility]) Baso # 0.0 10 0.0-0.2 [facility] ([place] [facility]) Eos # 0.1 10 0.0-0.5 [facility] ([place] [facility] ID Date Data Source [id number] 04/29/2021 01:26:00 PM EDT [facility] ([facility]) Name Value Range Interpretation Code Description Data Maddy rce(s) Supporting Document(s) Platelets reticulated/100 platelets in Blood by Automated co unt 16.2 % 0.0-10.91 [facility] ([facility]) ID Date Data Source [id number] 04/29/2021 01:26:00 PM EDT [facility] ([facility]) Name Value Range Interpretation Code Description Data Maddy rce(s) Supporting Document(s) Free [place] Light Chains Serum 192.4 mg/L 3.3-19.4 [facility] ([facility]) Free Lambda Light Chains Serum 13.3 mg/L 5.7-26.3 [facility] ([facility]) [place]/Lambda Ratio Serum 14.47 0.26-1.65 [facility] ([facility]) Performed at: RN - [facility] [address] [id number] Embedded Software Architect: Keyonna Fraser MD, Phone: [phone] ID Date Data Source [id number] 04/29/2021 01:26:00 PM EDT [facility] ([facility]) Name Value Range Interpretation Code Description Data Maddy rce(s) Supporting Document(s) Blood Urea Nitrogen 12 mg/dL 7-18 [facility] ([facility]) Glucose, Fasting 100 mg/dL 70-100 [facility] ([facility]) Creatinine For GFR 0.83 mg/dL 0.70-1.30 [facility] ([facility]) Potassium Serum 4.0 meq/L 3.5-5.1 [facility] ([facility]) Glomerular Filtration Rate Laboratory test result [facility] ([facility]) <content>Units are mL/min/1.73 m2</content>
<content></content>
<content>Chronic Kidney Disease Staging per NKF:</content>
<content></content>
<content>Stage I & II GFR >=60 Normal to Mildly Decreased</content>
<content>Stage III GFR 30- 59 Moderately Decreased</content>
<content>Stage IV GFR 15-29 Severely Decreased</content>
<content>Stage V GFR <15 Very Little GFR Left</content>
<content>ESRD GFR <15 on PET ADOPTION COUNSELOR</content>
<content></content> Sodium Level 139 meq/L 136-145 [facility] ([facility]) Anion Gap 5 meq/L 8-16 [facility] ([place] [facility] Chloride Level 107 meq/L 98-107 [facility] ([facility]) Carbon Dioxide Level 27 meq/L 21-32 [facility] ([facility]) Ast/Sgot 28 U/L 7-37 [facility] ([place] [facility] Calcium Level 9.3 mg/dL 8.8-10.2 [facility] ([facility]) Alkaline Phosphatase 70 U/L 45-117 [facility] Alt/SGPT 19 U/L 12-78 [facility] ([facility]) Total Protein 7.6 GM/DL 6.4-8.2 [facility] ([facility]) Bilirubin,Total 0.4 mg/dL 0.2-1.0 [facility] ([facility]) Albumin 2.8 GM/DL 3.2-5.2 [facility] ([facility]) Albumin/Globulin Ratio 0.6 [facility] ([facility]) ID Date Data Source [id number] 04/29/2021 01:26:00 PM EDT [facility] ([facility]) Name Value Range Interpretation Code Description Data Maddy rce(s) Supporting Document(s) IgA [Mass/volume] in Serum or Plasma 111.0 mg/dL 70-400 [facility] ([facility]) Immunoglobulin G 2550 mg/dL 681-1648 [facility] ([facility]) Immunoglobulin M 26.9 mg/dL 40-230 [facility] ([facility]) ID Date Data Source [id number] 04/29/2021 01:26:00 PM EDT [facility] ([facility]) Name Value Range Interpretation Code Description Data Maddy rce(s) Supporting Document(s) Albumin % 44.3 % 55.8-66.1 [facility] ([place] [facility] Loxzx-8-Euttomvf % 3.5 % 2.9-4.9 [facility] ([facility]) Tcss-3-Hgphmpdoz % 4.0 % 3.2-6.5 [facility] ([facility]) Pnfh-4-Zxikprayi % 34.0 % 4.7-7.2 [facility] ([facility]) Hdliy-1-Zunlnfjev % 9.7 % 7.1-11.8 [facility] ([facility]) Gamma Globulin % 4.5 % 11.1-18.8 [facility] ([facility]) Albumin 3.37 GM/DL 3.29-5.55 [facility] ([facility]) Mcegg-3-Kvqinizxs 0.27 GM/DL 0.17-0.41 [facility] ([facility]) Cagnp-2-Pdkurxdil 0.74 GM/DL 0.42-0.99 [facility] ([facility]) Jqdb-8-Upnfbghgs 2.58 GM/DL 0.28-0.60 [facility] ([facility]) Gamma Globulins 0.34 GM/DL 0.65-1.58 [facility] ([facility]) Pxyq-7-Qfcxqcpna 0.30 GM/DL 0.19-0.55 [facility] ([facility]) Total Protein 7.6 GM/DL 6.4-8.2 [facility] ([facility]) Laboratory test finding (navigational concept) Laboratory test result [facility] ([facility]) Spep Interpretation Laboratory test result [facility] ([facility]) M-SPIKE NOTED IN BETA 1 REGION. CONCENTRATION = 2.37 GM/DL ID Date Data Source [id number] 04/29/2021 01:26:00 PM EDT [facility] ([facility]) Name Value Range Interpretation Code Description Data Maddy rce(s) Supporting Document(s) Ferritin [Mass/volume] in Serum or Plasma 98 ng/mL 26-388 [facility] ([facility]) ID Date Data Source [id number] 04/29/2021 01:26:00 PM EDT [facility] ([facility]) Name Value Range Interpretation Code Description Data Maddy rce(s) Supporting Document(s) Iron (Fe) 70 ug/dL 65-175 [facility] ([facility]) Percent Saturation 24.5 % 19.7-50.0 [facility] ([facility]) Total Iron Binding Capacity 286 ug/dL 250-450 [facility] ([facility]) ID Date Data Source [id number] 04/22/2021 04:46:00 AM EDT [facility] ([facility]) Name Value Range Interpretation Code Description Data Maddy rce(s) Supporting Document(s) CPK Creatine Phosphokinase 65 U/L 39-308 [facility] ([facility]) CK-MB Value Mass 1.2 ng/mL [facility] ([facility]) Troponin I 0.02 ng/mL [facility] ([facility]) <content>Troponin I Reference Interval f or Siemens Banks LOCI:</content>
<content></content>
<content>99th Percentile= 0.00-0.045 ng/ml</content>
<content></content>
<content>Risk Stratification:</content>
<content><= 0.10 ng/ml Decreased Risk for Adverse Clinical</content>
<content>Events.</content>
<content>0.10-1.50 ng/ml Increased Risk for Adverse Clinical</content>
<content>Events. Evaluation of additional</content>
<content>criterion and/or repeat testing in 2-6</content>
<content>hours is suggested to rule out myocardial</content>
<content>damage.</content>
<content>>= 1.50 ng/ml Indicative of Myocardial Injury.</content>
<content></content> MB/CK Relative Index 1.85 [facility] ([facility]) <content>DIAGNOSIS CRITERIA</content>
<content>MMB ng/ml Relative Index (RI)</content>
<content>NON-AMI < or = 5 N/A</content>
<content>PRIETO ZONE > 5 < or = 4</content>
<content>AMI > 5 > 4</content>
<content></content> ID Date Data Source [id number] 04/21/2021 11:33:00 PM EDT [facility] ([facility]) Name Value Range Interpretation Code Description Data Maddy rce(s) Supporting Document(s) Red Blood Count 4.02 10 4.30-6.10 [facility] ([facility]) White Blood Count 3.9 10 4.0-10.0 [facility] ([facility]) Hematocrit 39.7 % 42.0-52.0 [facility] ([facility]) Hemoglobin 12.7 g/dL 13.5-17.5 [facility] ([place] [facility]) Mean Corpuscular Hemoglobin 31.6 pg 27.0-33.0 [facility] ([facility]) Mean Corpuscular Volume 98.8 fl 80.0-96.0 [facility] ([facility]) Mean Corpuscular HGB Conc 32.0 g/dL 32.0-36.5 [facility] ([facility]) Platelet Count, Automated 56 10 150-450 [facility] ([facility]) Red Cell Distribution Width 15.8 % 11.5-14.5 [facility] ([facility]) Nucleated Red Blood Cell % 0.0 % 0-0 [facility] ([facility]) ID Date Data Source [id number] 04/21/2021 11:33:00 PM EDT [facility] ([facility]) Name Value Range Interpretation Code Description Data Maddy rce(s) Supporting Document(s) Neutrophils 56 % 28-66 [facility] ([facility]) Lymphocytes 23 % 16-44 [facility] ([facility]) Eosinophils 3 % 0-3 [facility] ([facility]) Monocytes 12 % 0-5 [facility] ([place] [facility] Atypical Lymph 5 % 0-5 [facility] ([facility]) Basophils 1 % 0-1 [facility] ([place] [facility] Anisocytosis Laboratory test result [facility] ([facility]) ID Date Data Source [id number] 04/21/2021 11:33:00 PM EDT [facility] ([facility]) Name Value Range Interpretation Code Description Data Maddy rce(s) Supporting Document(s) CPK Creatine Phosphokinase 86 U/L 39-308 [facility] ([facility]) MB/CK Relative Index 2.09 [facility] ([facility]) <content>DIAGNOSIS CRITERIA</content>
<content>MMB ng/ml Relative Index (RI)</content>
<content>NON-AMI < or = 5 N/A</content>
<content>PRIETO ZONE > 5 < or = 4</content>
<content>AMI > 5 > 4</content>
<content></content> CK-MB Value Mass 1.8 ng/mL [facility] ([facility]) Troponin I Laboratory test result [facility] ([facility]) <content>Troponin I Reference Interval f or Siemens Banks LOCI:</content>
<content></content>
<content>99th Percentile= 0.00-0.045 ng/ml</content>
<content></content>
<content>Risk Stratification:</content>
<content><= 0.10 ng/ml Decreased Risk for Adverse Clinical</content>
<content>Events.</content>
<content>0.10-1.50 ng/ml Increased Risk for Adverse Clinical</content>
<content>Events. Evaluation of additional</content>
<content>criterion and/or repeat testing in 2-6</content>
<content>hours is suggested to rule out myocardial</content>
<content>damage.</content>
<content>>= 1.50 ng/ml Indicative of Myocardial Injury.</content>
<content></content> ID Date Data Source [id number] 04/21/2021 11:33:00 PM EDT [facility] ([facility]) Name Value Range Interpretation Code Description Data Maddy rce(s) Supporting Document(s) Ast/Sgot 31 U/L 7-37 [facility] [facility] Alt/SGPT 17 U/L 12-78 [facility] ([place] [facility] Alkaline Phosphatase 62 U/L 45-117 [facility] ([facility]) Bilirubin,Total 0.9 mg/dL 0.2-1.0 [facility] ([facility]) Albumin 3.0 GM/DL 3.2-5.2 [facility] ([place] [facility] Total Protein 8.2 GM/DL 6.4-8.2 [facility] ([facility]) Bilirubin,Direct 0.3 mg/dL 0.0-0.2 [facility] ([facility]) Albumin/Globulin Ratio 0.6 [facility] ([facility]) ID Date Data Source [id number] 04/21/2021 11:33:00 PM EDT [facility] ([facility]) Name Value Range Interpretation Code Description Data Maddy rce(s) Supporting Document(s) Blood Urea Nitrogen 12 mg/dL 7-18 [facility] ([facility]) Glucose, Fasting 80 mg/dL 70-100 [facility] ([facility]) Creatinine For GFR 0.81 mg/dL 0.70-1.30 [facility] ([facility]) Glomerular Filtration Rate Laboratory test result [facility] ([facility]) <content>Units are mL/min/1.73 m2</content>
<content></content>
<content>Chronic Kidney Disease Staging per NKF:</content>
<content></content>
<content>Stage I & II GFR >=60 Normal to Mildly Decreased</content>
<content>Stage III GFR 30- 59 Moderately Decreased</content>
<content>Stage IV GFR 15-29 Severely Decreased</content>
<content>Stage V GFR <15 Very Little GFR Left</content>
<content>ESRD GFR <15 on PET ADOPTION COUNSELOR</content>
<content></content> Sodium Level 141 meq/L 136-145 [facility] ([facility]) Potassium Serum 3.6 meq/L 3.5-5.1 [facility] ([facility]) Chloride Level 108 meq/L 98-107 [facility] ([facility]) Carbon Dioxide Level 26 meq/L 21-32 [facility] ([facility]) Anion Gap 7 meq/L 8-16 [facility] ([place] [facility]) Calcium Level 9.8 mg/dL 8.8-10.2 [facility] ([facility]) ID Date Data Source [id number] 04/21/2021 11:33:00 PM EDT [facility] ([facility]) Name Value Range Interpretation Code Description Data Maddy rce(s) Supporting Document(s) Lipoprotein lipase [Enzymatic activity/volume] in Serum or P lasma 166 U/L 73-393 [facility] ([facility]) Thyrotropin [Units/volume] in Serum or Plasma by Detec tion limit <= 0.05 mIU/L 3.810 uIU/ML 0.358-3.740 [facility] ([facility] ) Thyroxine (T4) free [Mass/volume] in Serum or Plasma 1.12 ng/dL 0.76- 1.46 [facility] ([facility]) ID Date Data Source [id number] 04/21/2021 11:33:00 PM EDT [facility] ([facility]) Name Value Range Interpretation Code Description Data Maddy rce(s) Supporting Document(s) Platelets [#/volume] in Blood by Estimate Laboratory test result [facility] ([facility]) Platelets reticulated/100 platelets in Blood by Automated co unt 11.6 % 0.0-10.91 [facility] ([facility]) ID Date Data Source [id number] 04/20/2021 04:53:00 PM EDT [facility] ([facility]) Name Value Range Interpretation Code Description Data Maddy rce(s) Supporting Document(s) Lipoprotein lipase [Enzymatic activity/volume] in Serum or P lasma 119 U/L 73-393 [facility] ([facility]) ID Date Data Source [id number] 04/20/2021 04:53:00 PM EDT [facility] ([facility]) Name Value Range Interpretation Code Description Data Maddy rce(s) Supporting Document(s) Alt/SGPT 16 U/L 12-78 [facility] ([place] [facility]) Ast/Sgot 44 U/L 7-37 [facility] ([place] [facility] Testing was performed on a SLIGHTLY hemo lyzed specimen. Suggest recollection of specimen for more accurate test results. Bilirubin,Total 0.8 mg/dL 0.2-1.0 [facility] ([facility]) Bilirubin,Direct Laboratory test result 0.0-0.2 [facility] ([facility]) Alkaline Phosphatase 56 U/L 45-117 [facility] ([facility]) Albumin 2.6 GM/DL 3.2-5.2 [facility] [facility] ([facility]) Total Protein 7.8 GM/DL 6.4-8.2 [facility] ([facility]) Albumin/Globulin Ratio 0.5 [facility] ([facility]) ID Date Data Source [id number] 04/20/2021 04:29:00 PM EDT [facility] ([facility]) Name Value Range Interpretation Code Description Data Maddy rce(s) Supporting Document(s) Laboratory test finding (navigational concept) 0.01 ng/mL 0.00-0.08 [facility] ([facility]) ID Date Data Source [id number] 04/20/2021 04:28:00 PM EDT [facility] ([facility]) Name Value Range Interpretation Code Description Data Maddy rce(s) Supporting Document(s) Inr 2.17 [facility] ([facility]) THERAPUTIC HUMAN INR VALUES INDICATIONS NORMAL RANGES PROPHYLAXIS/TREATMENT OF: VENOUS THROMBOSIS 2.0-3.0 PULMONARY EMBOLISM 2.0-3.0 PREVENTION OF SYSTEMIC EMBOLISM FROM: TISSUE HEART VALVES 2.0-3.0 ACUTE MYOCARDIAL INFARCTION 2.0-3.0 VALVULAR HEART DISEASE 2.0-3.0 ATRIAL FIBRILLATION 2.0-3.0 MECHANICAL VALVES(HIGH RISK) 2.5-3.5 RECURRENT MYOCARDIAL INFARCTION 2.5-3.5 Prothrombin Time 24.7 s 12.5-14.3 [facility] ([facility]) ID Date Data Source [id number] 04/20/2021 04:28:00 PM EDT [facility] ([facility]) Name Value Range Interpretation Code Description Data Maddy rce(s) Supporting Document(s) Platelets reticulated/100 platelets in Blood by Automated co unt 11.3 % 0.0-10.91 [facility] ([facility]) ID Date Data Source [id number] 04/20/2021 04:28:00 PM EDT [facility] ([facility]) Name Value Range Interpretation Code Description Data Maddy rce(s) Supporting Document(s) White Blood Count 4.0 10 4.0-10.0 [facility] ([facility]) Red Blood Count 3.97 10 4.30-6.10 [facility] ([facility]) Hemoglobin 12.4 g/dL 13.5-17.5 [facility]) Mean Corpuscular Volume 99.2 fl 80.0-96.0 [facility] ([facility]) Hematocrit 39.4 % 42.0-52.0 [facility]) Mean Corpuscular Hemoglobin 31.2 pg 27.0-33.0 [facility] ([facility]) Mean Corpuscular HGB Conc 31.5 g/dL 32.0-36.5 [facility] ([facility]) Red Cell Distribution Width 15.9 % 11.5-14.5 [facility] ([facility]) Platelet Count, Automated 67 10 150-450 [facility] ([facility]) Neutrophils % 51.6 % 36.0-66.0 [facility] ([facility]) [place] % 12.3 % 2.0-8.0 [facility]) Eos % 3.8 % 0.0-3.0 [facility]) Lymph % 30.7 % 24.0-44.0 [facility]) Immature Granulocyte % 0.8 % 0-3.0 [facility] ([facility]) Baso % 0.8 % 0.0-1.0 [facility]) Nucleated Red Blood Cell % 0.0 % 0-0 [facility] ([facility]) Neutrophils # 2.1 10 1.5-8.5 [facility] ([facility]) Lymph # 1.2 10 1.5-5.0 [facility]) [place] # 0.5 10 0.0-0.8 [facility]) Eos # 0.2 10 0.0-0.5 [facility]) Baso # 0.0 10 0.0-0.2 [facility]) ID Date Data Source [id number] 04/20/2021 04:27:00 PM EDT [facility] ([facility]) Name Value Range Interpretation Code Description Data Maddy rce(s) Supporting Document(s) Laboratory test finding (navigational concept) 39.0 % 38.0-51.0 [facility] ([facility]) Laboratory test finding (navigational concept) 96 mg/dL 70-105 [facility] ([facility]) Laboratory test finding (navigational concept) 142 meq/L 136-145 [facility] ([facility]) Laboratory test finding (navigational concept) 103 meq/L 98-109 [facility] ([facility]) Laboratory test finding (navigational concept) 4.6 mg/dL 4.5-5.3 [facility] ([facility]) Laboratory test finding (navigational concept) 3.8 meq/L 3.5-5.1 [facility] ([facility]) Laboratory test finding (navigational concept) 11 mg/dL 8-26 [facility] ([facility]) Laboratory test finding (navigational concept) 24.0 MM/L 23.0-27.0 [facility] ([facility]) Laboratory test finding (navigational concept) 0.9 mg/dL 0.6-1.3 [facility] ([facility]) ID Date Data Source [id number] 04/05/2021 03:40:00 PM EDT [facility] ([facility]) Name Value Range Interpretation Code Description Data Maddy rce(s) Supporting Document(s) INR in Platelet poor plasma by Coagulation assay 2.2 [facility] ([facility]) ID Date Data Source [id number] 03/23/2021 02:45:00 PM EDT [facility] Name Value Range Interpretation Code Description Data Maddy rce(s) Supporting Document(s) Follow Up [facility] GEUNIu7gZyPZJbAyGZFiRgeMJLluAAodTGFaF3T3FLjwIs1HYAudqgIxEOBnMf7+CVRdVO0bgm1eZZIe gMy [file] PRACTICE ADMINISTRATOR+IY92+BhSpSsSR/STyvQ6gKkz8arOiXk0D1FQOeQmUurAMcurMyFdFFxVr0vepmnbqhKrDjRrYe9rt [file] zUJzxNJx/ZRS7SF0LbPsGZiBdUD3svazxTIyEt/senior living [file] 5WSVkw/NAhftQOzJPnH9kpjNtpAQMNLpe2fsnqOWj7s4DUh5BZTCFGjh9GJIlI/1NT55+m5fzDMx+applications administrator [file] JN05Yexkqz46mGMzg6HKUmkVNnggsdaj5oNtBjF/6jMbui3JtAz3O0/Renée/LUny+N4gJ1eWS+M1+0Fq2 [file] lqGDXsaM7BBXOv67z6CHawBJ3wJNHpP/8IKvV57k5ACQv9ZP+4k9ocnz++/PRACTICE ADMINISTRATOR++zRVYPmv+N0wQMuhCa [file] 6/eymyfC6D2vDPzwI5915/zDaAVcf6TOZXKlqg/tailings man [file] rP/I06oB6V3/Mónica+isZX9t7gs8Wy0TfarU1nTSdmmmFle+vEzd4zkNWXqjSQNX9NIgQa7XhDDRJAGbr0 [file] eiJiUID0j4xCB5c842HzUkytKKJMMFkHM3/9LdrII3jV+mKBsIhm4yvNeJl/mountain guide+ZF0QbPblkMOjKdyYY gGJL6TCS36R74hWK6SDtIMEG/JU67JXK2dUp9vmW5LUckYr2iD2rRMJ6afyLkeeSI2sDOCNgZ+5JsCsW ILOSXI3EAazed70BrdgK0btPKzx/r3xwwqK5gvlJlK EzlaIf96Brl0Ch1SXDr/siHu/a1fLKXynxQKXb6dBbWcKmzVT6gkiNpQJroM8I0YH7H+lezKFnPNUnDF 6KZV21p8bHxIf1mzkmDcl/G6tpqJuPbd0reqoNyIwVGo/jJFsyl/3ZmdMQ61+KwpV/0y3PLVBN07/princess [file] 1i+11hwtUdV1ADb+o6r8CU+H01pP+QCS8tU3HQ+slitter and cutter operator [file] ArzGwmSN9l+gT9/kDPluYOUC89s3JWr//lMJIKYtyU17iz8xFFKegFXbElnIYD5R2Zyo9V54qIk+Rodríguez+ [file] CdY99fmeiqXxgdQzYuZop91iHNy/AF/1/27EZPk4/ddD1YoyjxKDWiu/short piece handler/N+rdMyo905Cf/V7S52MXC Nb+Eduardo/NyAwPvB6hB2U5RHW6Aq3sgkHDo8UJhL4zDS1jsIUjAb3fUNYVcpUQEagtf+DqcTPUd189HXIl [file] Car Refinisher/hRRep0sFnPAvziiWHfkmXUIGCKbi/K+1KCidJyCX2n6vA8DbjnqETrdTlil1tVwPX4cqfxxtoDvZ [file] event lighting specialist+u/j9w4ek9nS8pkJBEqftl20wBNCbLcnYmRkObN [file] Fx/IPJ/82307P4y6ceL0M6ewpfe0WtyvtBeqLIkZUg25GthQ/ndtlv/p/Fcp3dSvdSaniAgqt+g/Efraín ahLZhmICgPKCdMZkkyGceMEEsqSH/zPNWvYVyRPPIl [file] anesthesiologist and critical care+rjEJVY69bJCa6zUlZfSeRdMY0fjUIXiTlGuZFUAJbQwWCu3rqrsKg7Mi9r+Bb2L5Kbz7F/0mgqmbg [file] real estate sales manager+vdBRVoDNI40RnFvG5Zl3F86vqsxym48ucjqN8H9HPqkFiyohoPm92LxzHYEaxymt/J8wHlOdATp1 [file] OBfW24TzMdEiJjrWsZ4H1zy4Wfb6XoHJa+6mxTYIZOnpRs1m9SNK2Md3omniN7D77hjaoQOU33/kT+Wildlife Photographer [file] YdyZKCgbkQwomgSpFkAKpmrcjeSoh+PRACTICE ADMINISTRATOR/Dnjh/1hmk FQHYy5z/qKas57wSR4q09N3P7H1LdYYg6gqr4wGgy4v0AN90SJNCO0ekzZ3GMIxzhJnO+1XxrIHGmHT4 anrO0hbmDdPOwYV1qiB/wdYskVwZ/WHCUx53jB+wos4XL61G18i/9dXdQg16J3rf/s0+35aigjxoy8aQ IKmxW8htjgJr5r78ZfKwYbrvZEQqHGrcCPUoVW0jAO JyH5D54LRXBcEcjuYUMWu1O85RhACcvdB9wAYwNaFSHwLtNTxUcudgSgnepiA593ZZzSPxmiL+Y5lBxu hmrz+kuD3eshBp2F3uyPDoD5i+k23KD45CYjW+l7sMmqin+IIpBzFZ+dOVOKvTt6FS5CQ+SfV6cfY8mg VWLugD4+Wazv81H7rTAwFbTEHx08p+mLC7Av7mL5F0 1F6CCCuXBm9YAVk/RwFxvBY+7Qd2IpxQ+cSEfYV/e4oOpiACLl0NlI5MJDJV+Gracy+9wUkOBvmOWHQDGeY [file] Cx+Jzxr6juE4diZZ6XzU+tankage grinder+fbc7z5zcPIVbwxDXKeBAiHnoq0FNLZkPGy5Zf51IiK74hqXlMvV6dZ7 [file] 7Znmu4kjbiGi40HgHKBlGJBdGBWnmtC8Wjj3kiMeeY640fOaP0SdLs3TWi3uUZPLda0+bTa/woUn/Licensed Practical Nurse Instructor [file] 1NFmtO2vIFpnjQ+BdZAezLezFU5b+Jack+at/+9kovxnC18Zglf+5EpmpRH75vFCGsRzo2LLo/AJ7IxkM 9PVvx06UrWOLLQc0QeKATu5YZj+cUHAwXrJwYLLdkT RGOJYnf0XBRcDUTS79ysHL+F+50vH/J1e+OB+qEYXaOlobVpaSKn4QKbJHDzD4KeZ1HDZkYkoldn3q2x ggCssWjRwhdGTeniAXCjcfE8RrX3Yy7lGeCzqWak5o8j+q1hhzrW7HAwHiyxomohcVrDwWA88NGiwd2h 4z1IpLrp7eFya/W4oG2i6vUm95j0p1RODm+kSF6I6z hjWRx0mXqYW/piWDRAg/dJwCrB30Y1VfyQYHY4hLtfZI9RprPEUiJxjF+y2E7xB9pvhWKyEeH+M13IIl 5nrDUqceHGZPqRc/5hwpiyuF1LxeapNF5ElIoyjSxxTFZi0FEJS98Co4EqbDK/1bvRCUdRYqEPPHQ7+o XEIEOVIL4JjiQAZGcOxQzQhASuoKtelxgST0eX/field cashier [file] DuT1I993RhDJYR6BRl6I/s+slitter and cutter operator/txbSRq2rx7MBUAL [file] weather analyst/obzy/0J5mUe+hF6MMT5eLkTDpp+hKeMChY3hA5 [file] TloIhHzd+aKSGnvjsf9z7klGLEtmLQZ28pJTv0EQblx3i/Maria Isabel+GH8VHaW0k1DWmsmsmMrUTQEIA+MC1J [file] m+lEQL6XInq1nx0Uih5pB4TFSJTkym+1p+ore tester/SPhih+mM1r7strc8RsYhdpVjZQMInLGF0RzXR7Dvqc jEVHs+u0ELsU7s/EEXngv/TzwhMhv7Rf7Zl0qQEE/toRVXEI257jE8RsQxzQI9qBH+8nfwhh/R11TDuV 3bDhVNT7azcaU6OCNREzl894JkW1fxA6h5SXiwX6XT +hSS9Y/m9hBeTfttPkeBW/5MUrhG0cDq9umT3nFgdRq20mGRVNh3B6ReHamOR3k6SITzZOmMvr022DiX IwcAELpCD3d738e+FiLccDvw/1q1VBlPVcwnTGCcceu/7e1wTWnuETSLRX5yrzfSfPVuATkhDzoMddzH RF07fHkI2cPiOdE/QlIAWj2ieXMjQtYEmK+dGpQT0v em+SXghlgI/5vgccrukgXdwBcpSUrOa6biMmJFuzpo48/YCRwLRhLVzfNWylCzcnF6s0u8xoX3mQ4WUi VD0awxpJkKd5HxBL9iVIhPN+ndlmDF0RcIILc8+MSvJWmhyK3Y8ArgwUG8xp7FroDyl9PZeXqJMBl/u9 mainor/4ZeU1Jj1dAOUstVn8gvvuX+De1Ton1bf9K9e/0 [file] slab installer/zGJtzY7GRBoeyU7+OUYhiyG1QxiD/YO9kRWhPFmF9TdgUeO7tX/9BsusSJehBtl2Le+yRGk2tDRq [file] PRACTICE ADMINISTRATOR/tuGTh/J1oKb9YQeAnraeoR/r/2HM1V+Qw8FllABK4uDdhJ/QdnbEifuQb53Db6VTb2prnZQ6XUueS [file] s/gvuHA2x8W3It3s7svgfWB6/glass mold repairer+HX4omC6A84wwtUMs7HBoQ3UxSVH7ZqAZsmb1X0yLMNFYxMk2ol+ [file] hoffmann+YHt104Rl8QfZpwlUutxiTXO2Vt2H5wUpKaewsLDpWC4GskQQI1G4tpmqeP/Olga Lidia+3H8yklHQfCAQhG [file] mountain guide+RiqtChtL+AuheDgzcy+F9bPBbH0jwhgAo5cWv3vJ0mqMLfQylsCvRl/59izdhI1mzDfx81BRq1B4t [file] szAFGDTEOvbUOBCHbmZDJHFZ7a8I+IhaSU4X7BDHs1 /qw3SuyqRQ5QR8+DojZR9Pq2IlnBzd/mUG9k3Np5sPH5GkT4KkWGRfKAHsuQ+qwPzC49QHWPLCAYjPY9 dQyNF/DAC925fXMDteL8dthzChJgM2vvGE3K2U3eO+rt8ftTlhQzPSWstwfhcE3Mhj0hrSzfFp87tRg+ rXeq9D+hBUECxeoqMLLADZbYRoa5Om7KYQXaZELiJN eSwlphCzssnpcDErjA1rtuH4I0Kd+aXT/UW+CsN75buy2pLaYd9KdfLyqwgebbk/aj3pBUuFHnkP4CGB 32Cegrp0a5e9VykCkWApQrPyUZASh3A2UjQym5evkenuB2dbd2vd3tlyiwgU8TxFWC3rTT1nV7EgcGiz N+V0wAIdcPDS6tCsuufaX9wN6L1Bxnijy/cnhlplNN v2oYc6eRzwuaSBoI3mplBNbs18nIfFSoOCZbMljLL8t3BZOaLojvD5C7nvU0hvovoOjZAaHcE472d3YT YPReQXIUuw1NeXyYR0lvjVL6nuTny7+bm2bqPUF2Vn1bu4bWhY+sblGm93sconue4wlUOiEqr+PDindF /TSPRlw4S1FlFtahM4/3VmMQC2/jvXObKw5ektUylJ nvel96hDs47ng+CeqryHGjrdWp/IcAgoOVb4v16eIj4O0nCiQJhtboCUd+b9hL4g5Krrzg/VxtfBNKTy oQTXsN6Btle7V5Rr0p7RJdsIdgoXnWfEDU3Z50D4jSNh2fyHx005oRtwo08F+sQ9nqHH6d1DF032zjdE 0gfeb7gZ9KIlyZOc+j+9mRJchhx+ZK1rYUSUiEhNMa 6wprP7c3Lqi8xyMQ/Efraín/ew9cBmGTSjZ8dZHLBbZ2m4//VTd0IvQBnnWVN+HNrCl4P27gdV8lr1suYk XWGr2xVbUgnB55y0+LjIIh3mQZxNNsRQrE0aF8Pkrav2jlAuMgqo010osHlI1sZhfsrh6FYEQ0lTs8fM btxLqhCDx/ueE0Ardz40Ntc7V7cv4+aqZk4bHMoNEW lj7Qwu0kQwhK5l5oJFv2JZZeZmU9vKNk+nlHf0cQkr+bsPngBodVrTou9+qAuJY2xuLJODPHC6kXlrYk iS4TJbTcZRRWiACTk8cmfkxZIC6RaDAwCjjoobdSR9FGnp3j2lXIKjQWRkcTOSx4uBe4bgU8//8Vg/amari [file] 6/RzXWiFj/7Gw13dNHtFEjXJWDzu0ypQ6adymnFevEb1eG/2fGBoV4l/Benjamín+je1SaYqrCY6duU0is4mx Ro2fiwy2jwOndmR++5p/SCkZxiYvEVcJw/39OQBRa7ZuR3R0fp76Us/2a3Phbuk5k6EpGjyPpo3ma9T5 IGxXtGo0AZ7Q6Z8w9oGPC5Og5pjywP/11Gh6/uRGPL 63KXmuEluNDF5tK2jVFDvmgq74RyJSUQ8zRoSInSbBLhOthKV6XII7yWoI8L83XhdovDAKwRWAmMMLNk Aukc4aeA4Z1aMbynerUqvfEEwAeHTvyFNNXgWPu+aye1uNM1GpMSgz5VwHyNrLqLVbRXXwa+9HssbZW8 bQDx9mOFNTvDLw41hmHyG90WXLVxcJ/b8oX63yhKYx RQ9XbRsL+YBK/qDnn+q2Wf4Odhm7onwK7KKVFAG9swVNnoUTzyu+FyKtFHb3/EDlgzHz9naR4Is89n/S wW7d8xdJw6WbLuSe+cnNqx8L1+Tv2DPC+l/qqUy624dl/daWypUdLYHzM2Dw8AXCYagu9jwxWexwxxdP x/P/+Zmk1UQTGHfLelRIuCsCDIS/SanXrOBs95GD5b 3D4tH6jwjnfZ0ALcljnlcrMpdALnym8O1Ec/28wcigHPeVcYLTcLG4tMWWut/sdJmobY77pErIYp/NVY 4+T0Bjz9FIqSBBtS1yTxadc1/2CdSaxqGOnwq6HsZigpn4rUWE8s6Qwz0pPm65kUU3LIk8L9l83oeBqr GX+glIUBNbyw09eo+1CHyBFigSPdtYYELT8SLZ2LcH gX+/uHHaGVt1WJEfmgXqru9r1jHl8NGDGfXHvj6jHHoZN/9uvEObOQUb0zWAXd7Eyo9YcUpINZDLm3J2 /+xubibsJoPpnj8ZPoktTtc9fceBQNuJycnN0lM2CPUh6xsorLMWgose8WGR8/HALLMAN/q53AsumGI7r4TtG [file] Noemí/amOW2N9sAA+7nJQ2aQDvKQQ1afOKoQJzFxLBqaz/Y+CAVujDkkI38ff7mkBcaCqVVYG9k+OHxHRc [file] rAebKyP6CveIfhJKatlpb25CCLN4MPASBhUALUSGPO s3WDoaHThjeVNlnhPuAfJ8ymjcg7o97vD7AUsblT7m2OWjpd8X+BBwRSi2lGftk+o7mgJeVNP4oV4qnv JDoWDS9zXc33rkPCLHVBJxUzpglmjpXvmrhDVl0uCT+7FBPAz6Nopc/0Wnvemr/4bC0h/NLrOWCV3Hgw +hMMBGG2NPCRQxRt+9XvZicIZ1UHlT3yZRGHyfEr0Z MvDrWLe/GFDYjQgH5GhHmutaa+vKfHXCzSPSy3yCAyv1TitJNRy/agRN9D3sEW2T111tIgWhav8sQfe+ sYZRooHrhFB1PY3ldffxO78kglOidf5cU51j5SXIU+C+V/ybOT/3pf+mRtCI7a2Ta5WczJrUEWon/F+n pG8cC0z+qk2MhQR1IL9pheJskgFhxv+uckEmRPbTOt s3jCcdTZ4Crchvpy8DM5W9jDANoLSVdYCrISv0PYV2AdGDxMeWzJ3X2/oPu4r+S0kLcV7TzkI54/+8ll OTmyKTm+pIe5GxGn5U+a4jfGguUtT/32/Z/D+qwgaZHacWYdG4s+gRc/2r8HMWU4HJXlyaEDXfiIkJ5D eUmtxiug8d/DmuYwXefkWA1wLDGMUhnsNPx45nCUrx Czbd35HRxQYWHxSlfZR7BjfX0Uz3EB1Vx5JgB4M7ha+GTU4X9XYF7nIO/w/TZBzsYsaWVSZx1/OtvpKk 4bsScoUBrmUAJBddwglF1PwX95pgrbCCgGU1jqMjCA6F/OBk7u5s88uySlKfq7uBWRR3w2R5TBkknxDn JIZcubIa/wKrPPgG1qYoAWNu8YSgGtUZRcEqvmHc/0 DibjmcdVJyw+6duw/Gómez/bdDJB/IUA1PMz+KSU6RjoG4Kb8LSQXdx2HV2FKw/jvj2Oxw/SMd+FncH1oi [file] ZECpL6TYbqOLPKLwWkCP2C ID Date Data Source [id number] 03/08/2021 02:12:00 PM EDT [facility] ([facility]) Name Value Range Interpretation Code Description Data Maddy rce(s) Supporting Document(s) Thyrotropin [Units/volume] in Serum or Plasma by Detec tion limit <= 0.05 mIU/L 2.94 uIU/mL 0.36-3.74 [facility] ([facility] ) ID Date Data Source [id number] 03/08/2021 02:12:00 PM EDT [facility] ([facility]) Name Value Range Interpretation Code Description Data Maddy rce(s) Supporting Document(s) Glucose [Mass/volume] in Serum or Plasma 133 mg/dL 74-99 [facility] ([facility]) 100-125 mg/dL PRE-DIABETES/FASTING >126 mg/dL DIABETES/FASTING Urea nitrogen [Mass/volume] in Serum or Plasma 17 mg/dL 7-18 [facility] ([facility]) Sodium [Moles/volume] in Serum or Plasma 142 meq/L 136-145 [facility] ([facility]) Potassium [Moles/volume] in Serum or Plasma 3.3 meq/L 3.5-5.1 [facility] ([facility]) Creatinine 1.1 mg/dL 0.6-1.3 [facility] ([facility] Carbon dioxide, total [Moles/volume] in Serum or Plasma 29 meq/L 21 -32 [facility] ([facility]) Chloride [Moles/volume] in Serum or Plasma 104 meq/L 98-107 [facility] ([facility]) Alkaline phosphatase isoenzyme [Units/volume] in Serum or Pl asma 88 mg/dL 46-116 [facility] ([facility]) Total Bilirubin 0.5 mg/dL 0.2-1.0 [facility] ([facility]) Calcium [Mass/volume] in Serum or Plasma 9.8 mg/dL 8.5-10.1 [facility] ([facility]) Alanine aminotransferase [Enzymatic activity/volume] in Seru m or Plasma 19 U/L 12-78 [facility] Aspartate aminotransferase [Enzymatic activity/volume] in Serum or Plasma 30 U/L 15-37 [facility] Albumin [Mass/volume] in Serum or Plasma 2.8 g/dL 3.4-5.0 [facility] ([facility] Proteinase 3 Ab [Units/volume] in Serum 8.6 g/dL 6.4-8.2 [facility] ([facility]) A/G Ratio 0.48 CALC 1.00-1.90 [facility] ([facility]) Glomerular filtration rate/1.73 sq M pre dicted among blacks [Volume Rate/Area] in Serum or Plasma by Creatinine-based formula (MDRD) Laboratory test result [facility] ([facility]) <content>CHRONIC KIDNEY DISEASE STAGING PER NK[facility]</content>
<content></content>
<content>STAGE I & II GFR >= 60 NORMAL TO MILDLY DECREASED</content>
<content>STAGE III GFR 30-59 MODERATELY DECREASED</content>
<content>STAGE IV GFR 15-29 SEVERELY DECREASED</content>
<content>STAGE V GFR <15 VERY LITTLE GFR LEFT</content>
<content>ESRD GFR <15 ON PET ADOPTION COUNSELOR</content>
<content></content> Glomerular filtration rate/1.73 sq M pre dicted among non-blacks [Volume Rate/Area] in Serum or Plasma by Creatinine-based formula (MDRD) Laboratory test result [facility] ([facility] ) ID Date Data Source [id number] 03/08/2021 02:12:00 PM EDT [facility] ([facility]) Name Value Range Interpretation Code Description Data Maddy rce(s) Supporting Document(s) Leukocytes [#/volume] in Blood by Automated count 5.4 x10*3/UL 4.1-10 .9 [facility] ([facility]) Erythrocytes [#/volume] in Blood by Automated count 4.05 x10*6/UL 4.2 0-6.30 [facility] ([facility]) Hemoglobin [Mass/volume] in Blood 12.7 g/dL 12.0-18.0 [facility] ([facility]) Hematocrit [Volume Fraction] of Blood by Automated count 38.3 % 3 7.0-51.0 [facility] ([facility]) MCV 94.5 fL 80.0-97.0 [facility] ([facility]) MCH 31.3 pg 26.0-32.0 [facility] ([facility]) MCHC 33.1 g/dL 31.0-38.0 [facility] ([facility]) Erythrocyte distribution width [Ratio] by Automated count 14.6 % 11.6-13.7 [facility] ([facility]) MPV 10.2 FL 7.8-11.0 [facility] ([facility]) Platelets [#/volume] in Blood by Automated count 86 x10*3/UL 140-440 [facility] ([facility]) NOTE: RESULT VERIFIED. Lymph % 25.2 % 10.0-58.5 [facility] ([facility]) Neut % 68.2 % 37.0-92.0 [facility] ([facility]) Mid % 6.6 % 1.7-9.3 [facility] ([facility]) Mid # 0.4 x10*3/UL 0.1-0.6 [facility] ([facility]) Lymph # 1.3 x10*3/UL 0.6-4.1 [facility] ([facility]) Neut # 3.7 x10*3/UL 2.0-7.8 [facility] ([facility]) ID Date Data Source [id number] 03/03/2021 02:11:00 PM EDT [facility] ([facility]) Name Value Range Interpretation Code Description Data Maddy rce(s) Supporting Document(s) INR in Platelet poor plasma by Coagulation assay 2.3 [facility] ([facility]) ID Date Data Source [id number] 01/31/2021 02:27:00 PM EDT [facility] ([facility]) Name Value Range Interpretation Code Description Data Maddy rce(s) Supporting Document(s) INR in Platelet poor plasma by Coagulation assay 2.8 [facility] ([facility]) ID Date Data Source [id number] 01/19/2021 12:00:00 AM EDT [facility] Name Value Range Interpretation Code Description Data Maddy rce(s) Supporting Document(s) SARS-CoV2 Rapid Antigen Negative [facility] This lab was reported by [facility]. ID Date Data Source [id number] 01/17/2021 03:28:00 PM EDT [facility] ([facility]) Name Value Range Interpretation Code Description Data Maddy rce(s) Supporting Document(s) Glucose, Fasting 93 mg/dL 70-100 [facility] ([facility]) Blood Urea Nitrogen 20 mg/dL 7-18 [facility] ([facility]) Creatinine For GFR 0.88 mg/dL 0.70-1.30 [facility] ([facility]) Glomerular Filtration Rate Laboratory test result [facility] ([facility]) <content>Units are mL/min/1.73 m2</content>
<content></content>
<content>Chronic Kidney Disease Staging per NKF:</content>
<content></content>
<content>Stage I & II GFR >=60 Normal to Mildly Decreased</content>
<content>Stage III GFR 30- 59 Moderately Decreased</content>
<content>Stage IV GFR 15-29 Severely Decreased</content>
<content>Stage V GFR <15 Very Little GFR Left</content>
<content>ESRD GFR <15 on PET ADOPTION COUNSELOR</content>
<content></content> Sodium Level 140 meq/L 136-145 [facility] ([facility]) Chloride Level 104 meq/L 98-107 [facility] ([facility]) Potassium Serum 3.3 meq/L 3.5-5.1 [facility] ([facility]) Carbon Dioxide Level 32 meq/L 21-32 [facility] ([facility]) Calcium Level 9.5 mg/dL 8.8-10.2 [facility] ([facility]) Anion Gap 4 meq/L 8-16 [facility] Ast/Sgot 20 U/L 7-37 [facility] ([facility] Alt/SGPT 16 U/L 12-78 [facility] ([facility] Alkaline Phosphatase 87 U/L 45-117 [facility] ([facility]) Bilirubin,Total 0.8 mg/dL 0.2-1.0 [facility] ([facility]) Total Protein 8.0 GM/DL 6.4-8.2 [facility] ([facility]) Albumin 3.0 GM/DL 3.2-5.2 [facility] ([facility] Albumin/Globulin Ratio 0.6 [facility] ([facility]) ID Date Data Source [id number] 01/17/2021 03:28:00 PM EDT [facility] ([facility]) Name Value Range Interpretation Code Description Data Maddy rce(s) Supporting Document(s) Iron (Fe) 79 ug/dL 65-175 [facility] ([facility]) Percent Saturation 23.9 % 19.7-50.0 [facility] ([facility]) Total Iron Binding Capacity 330 ug/dL 250-450 [facility] ([facility]) ID Date Data Source [id number] 01/17/2021 03:28:00 PM EDT [facility] ([facility]) Name Value Range Interpretation Code Description Data Maddy rce(s) Supporting Document(s) Immunoglobulin G 2750 mg/dL 681-1648 [facility] ([facility]) Immunoglobulin A 163.0 mg/dL 70-400 [facility] ([facility]) Immunoglobulin M 27.5 mg/dL 40-230 [facility] ([facility]) ID Date Data Source [id number] 01/17/2021 03:28:00 PM EDT [facility] ([facility]) Name Value Range Interpretation Code Description Data Maddy rce(s) Supporting Document(s) Albumin % 41.9 % 55.8-66.1 [facility] ([facility] Nbuil-9-Bfkcreehg % 10.6 % 7.1-11.8 [facility] ([facility]) Wlrss-8-Qnpksyjg % 4.2 % 2.9-4.9 [facility] ([facility]) Btky-0-Kimukqjgh % 32.5 % 4.7-7.2 [facility] ([facility]) Kxni-2-Vjmznfwrh % 5.3 % 3.2-6.5 [facility] ([facility]) Albumin 3.35 GM/DL 3.29-5.55 [facility] ([facility]) Gamma Globulin % 5.5 % 11.1-18.8 [facility] ([facility]) Ibqey-4-Qtesxmhzo 0.34 GM/DL 0.17-0.41 [facility] ([facility]) Jmbxg-9-Izsrauogz 0.85 GM/DL 0.42-0.99 [facility] ([facility]) Hobs-2-Obxtljyrm 0.42 GM/DL 0.19-0.55 [facility] ([facility]) Raum-1-Mbvvgvlaa 2.60 GM/DL 0.28-0.60 [facility] ([facility]) Total Protein 8.0 GM/DL 6.4-8.2 [facility] ([facility]) Gamma Globulins 0.44 GM/DL 0.65-1.58 [facility] ([facility]) Spep Interpretation Laboratory test result [facility] ([facility]) M-SPIKE NOTED IN BETA 1 REGION. CONCENTRATION = 2.42 GM/DL Laboratory test finding (navigational concept) Laboratory test result [facility] ([facility]) REV'D BY Vicente ENGLISH ID Date Data Source [id number] 01/17/2021 03:28:00 PM EDT [facility] ([facility]) Name Value Range Interpretation Code Description Data Maddy rce(s) Supporting Document(s) Vitamin B12 Level 488 pg/mL [facility] ([facility]) VITAMIN B12 NORMAL RANGE NORMAL 247 - 911 PG/ML INDETERMINATE 211 - 246 PG/ML DEFICIENT LESS THAN 211 PG/ML Folate 14.2 ng/mL [facility] ([facility]) FOLATE NORMAL RANGE NORMAL GREATER THAN 5.4 NG/ML INDETERMINATE 3.4-5.4 NG/ML DEFICIENT LESS THAN 3.4 NG/ML ID Date Data Source [id number] 01/17/2021 03:28:00 PM EDT [facility] ([facility]) Name Value Range Interpretation Code Description Data Maddy rce(s) Supporting Document(s) Ferritin [Mass/volume] in Serum or Plasma 84 ng/mL 26-388 [facility] ([facility]) ID Date Data Source [id number] 01/17/2021 03:28:00 PM EDT [facility] ([facility]) Name Value Range Interpretation Code Description Data Maddy rce(s) Supporting Document(s) Free Lambda Light Chains Serum 16.3 mg/L 5.7-26.3 [facility] ([facility]) Free [place] Light Chains Serum 207.8 mg/L 3.3-19.4 [facility] ([facility]) [place]/Lambda Ratio Serum 12.75 0.26-1.65 MEDEN T ([facility]) Performed at: RN - [facility] [address] [id number] Embedded Software Architect: Keyonna Fraser MD, Phone: [phone] ID Date Data Source [id number] 01/17/2021 03:27:00 PM EDT [facility] ([facility]) Name Value Range Interpretation Code Description Data Maddy rce(s) Supporting Document(s) White Blood Count 5.4 10 4.0-10.0 [facility] ([facility]) Hemoglobin 12.3 g/dL 13.5-17.5 [facility]ematocrit 38.6 % 42.0-52.0 [facility] Red Blood Count 3.78 10 4.30-6.10 [facility] ([facility]) Mean Corpuscular Hemoglobin 32.5 pg 27.0-33.0 AR DENT ([facility]) Mean Corpuscular Volume 102.1 fl 80.0-96.0 [facility] ([facility]) Mean Corpuscular HGB Conc 31.9 g/dL 32.0-36.5 MEDE NT ([facility]) Red Cell Distribution Width 16.4 % 11.5-14.5 ME DENT ([facility]) Neutrophils % 66.6 % 36.0-66.0 [facility] ([facility]) Platelet Count, Automated 73 10 150-450 MEDE NT ([facility]) Lymph % 18.5 % 24.0-44.0 [facility]) [place] % 10.7 % 2.0-8.0 [facility]) Baso % 0.6 % 0.0-1.0 [facility]) Eos % 3.2 % 0.0-3.0 [facility] Immature Granulocyte % 0.4 % 0-3.0 [facility] ([facility]) Nucleated Red Blood Cell % 0.0 % 0-0 MED ENT ([facility]) Neutrophils # 3.6 10 1.5-8.5 [facility] ([facility]) [place] # 0.6 10 0.0-0.8 [facility] Lymph # 1.0 10 1.5-5.0 [facility] Eos # 0.2 10 0.0-0.5 [facility] Baso # 0.0 10 0.0-0.2 [facility] ID Date Data Source [id number] 01/17/2021 03:27:00 PM EDT [facility] ([facility]) Name Value Range Interpretation Code Description Data Maddy rce(s) Supporting Document(s) Platelets reticulated/100 platelets in Blood by Automated co unt 11.2 % 0.0-10.91 [facility] ([facility]) ID Date Data Source [id number] 01/13/2021 02:28:00 PM EST [facility] ([facility]) Name Value Range Interpretation Code Description Data Maddy rce(s) Supporting Document(s) INR in Platelet poor plasma by Coagulation assay 1.8 [facility] ([facility]) ID Date Data Source [id number] 01/05/2021 02:40:00 PM EST [facility] ([facility]) Name Value Range Interpretation Code Description Data Maddy rce(s) Supporting Document(s) Prostate specific Ag [Mass/volume] in Serum or Plasma Laboratory test result [facility]) This assay was performed on the Siemens Dimension EXL using the B- Galactosidase/CPRG methodology and should not be compared interchangeably with other methods. The PSA should not be used alone as a screening test for the presence or absence of malignant disease. ID Date Data Source [id number] 01/05/2021 02:40:00 PM EST [facility] ([facility]) Name Value Range Interpretation Code Description Data Maddy rce(s) Supporting Document(s) Thyrotropin [Units/volume] in Serum or Plasma by Detec tion limit <= 0.05 mIU/L 3.99 uIU/mL 0.36-3.74 [facility] ([facility] ) ID Date Data Source [id number] 01/05/2021 02:40:00 PM EST [facility] ([facility]) Name Value Range Interpretation Code Description Data Maddy rce(s) Supporting Document(s) Triglyceride [Mass/volume] in Serum or Plasma 67 mg/dL 30-150 [facility] ([facility]) Cholesterol [Mass/volume] in Serum or Plasma 142 mg/dL 131-200 [facility] ([facility]) Cholesterol in LDL [Mass/volume] in Serum or Plasma by calcu lation 76 CALC 50-159 [facility] ([facility]) Cholesterol in HDL [Mass/volume] in Serum or Plasma 53 mg/dL 35-60 [facility] ([facility]) ID Date Data Source [id number] 01/05/2021 02:40:00 PM EST [facility] ([facility]) Name Value Range Interpretation Code Description Data Maddy rce(s) Supporting Document(s) Glucose [Mass/volume] in Serum or Plasma 91 mg/dL 74-99 [facility] ([facility]) 100-125 mg/dL PRE-DIABETES/FASTING >126 mg/dL DIABETES/FASTING Urea nitrogen [Mass/volume] in Serum or Plasma 23 mg/dL 7-18 [facility] ([facility]) Creatinine 1.2 mg/dL 0.6-1.3 [facility] ([facility]) Potassium [Moles/volume] in Serum or Plasma 4.1 meq/L 3.5-5.1 [facility] ([facility]) Sodium [Moles/volume] in Serum or Plasma 142 meq/L 136-145 [facility] ([facility]) Carbon dioxide, total [Moles/volume] in Serum or Plasma 30 meq/L 21 -32 [facility] ([facility]) Chloride [Moles/volume] in Serum or Plasma 105 meq/L 98-107 [facility] ([facility]) Calcium [Mass/volume] in Serum or Plasma 9.3 mg/dL 8.5-10.1 [facility] ([facility]) Total Bilirubin 0.5 mg/dL 0.2-1.0 [facility] ([facility]) Alkaline phosphatase isoenzyme [Units/volume] in Serum or Pl asma 70 mg/dL 46-116 [facility] ([facility]) Aspartate aminotransferase [Enzymatic activity/volume] in Serum or Plasma 23 U/L 15-37 [facility] ([facility] ) Alanine aminotransferase [Enzymatic activity/volume] in Seru m or Plasma 17 U/L 12-78 [facility] ([facility]) Albumin [Mass/volume] in Serum or Plasma 3.0 g/dL 3.4-5.0 [facility] ([facility]) NOTE: ALBUMIN,T.PROTEIN VERIFIED A/G Ratio 0.56 CALC 1.00-1.90 [facility]) Proteinase 3 Ab [Units/volume] in Serum 8.4 g/dL 6.4-8.2 [facility] ([facility]) Glomerular filtration rate/1.73 sq M pre dicted among non-blacks [Volume Rate/Area] in Serum or Plasma by Creatinine-based formula (MDRD) 58 mL/min [facility]) Glomerular filtration rate/1.73 sq M pre dicted among blacks [Volume Rate/Area] in Serum or Plasma by Creatinine-based formula (MDRD) Laboratory test result [facility] ([facility]) <content>CHRONIC KIDNEY DISEASE STAGING PER NKF</content>
<content></content>
<content>STAGE I & II GFR >= 60 NORMAL TO MILDLY DECREASED</content>
<content>STAGE III GFR 30-59 MODERATELY DECREASED</content>
<content>STAGE IV GFR 15-29 SEVERELY DECREASED</content>
<content>STAGE V GFR <15 VERY LITTLE GFR LEFT</content>
<content>ESRD GFR <15 ON PET ADOPTION COUNSELOR</content>
<content></content> ID Date Data Source [id number] 01/05/2021 02:40:00 PM EST [facility] ([facility]) Name Value Range Interpretation Code Description Data Maddy rce(s) Supporting Document(s) Creatine kinase [Enzymatic activity/volume] in Serum or Plasma 91 U /L 39-308 [facility] ([facility]) ID Date Data Source [id number] 01/05/2021 02:40:00 PM EST [facility] ([facility]) Name Value Range Interpretation Code Description Data Maddy rce(s) Supporting Document(s) Leukocytes [#/volume] in Blood by Automated count 4.7 x10*3/UL 4.1-10 .9 [facility] ([facility]) NOTE: CBC VERIFIED Hemoglobin [Mass/volume] in Blood 11.1 g/dL 12.0-18.0 [facility] ([facility]) Erythrocytes [#/volume] in Blood by Automated count 3.43 x10*6/UL 4.2 0-6.30 [facility] ([facility]) Hematocrit [Volume Fraction] of Blood by Automated count 33.5 % 3 7.0-51.0 [facility] ([facility]) MCV 97.8 fL 80.0-97.0 [facility] MCHC 33.2 g/dL 31.0-38.0 [facility]) MCH 32.5 pg 26.0-32.0 [facility] [facility] Erythrocyte distribution width [Ratio] by Automated count 15.6 % 11.6-13.7 [facility] ([facility]) Platelets [#/volume] in Blood by Automated count 61 x10*3/UL 140-440 [facility] ([facility]) MPV 11.0 FL 7.8-11.0 [facility]) Lymph % 23.1 % 10.0-58.5 [facility]) Mid % 8.1 % 1.7-9.3 [facility]) Neut % 68.8 % 37.0-92.0 [facility]) Lymph # 1.1 x10*3/UL 0.6-4.1 [facility] ([facility]) Mid # 0.4 x10*3/UL 0.1-0.6 [facility] ([facility]) Neut # 3.2 x10*3/UL 2.0-7.8 [facility] ([facility]) ID Date Data Source [id number] 01/05/2021 02:36:00 PM EST [facility] ([facility]) Name Value Range Interpretation Code Description Data Maddy rce(s) Supporting Document(s) INR in Platelet poor plasma by Coagulation assay 3.2 [facility] ([facility]) ID Date Data Source [id number] 12/08/2020 02:28:00 PM EST [facility] ([facility]) Name Value Range Interpretation Code Description Data Maddy rce(s) Supporting Document(s) INR in Platelet poor plasma by Coagulation assay 2.6 [facility] ([facility]) ID Date Data Source [id number] 11/24/2020 02:38:00 PM EST [facility] ([facility]) Name Value Range Interpretation Code Description Data Maddy rce(s) Supporting Document(s) INR in Platelet poor plasma by Coagulation assay 1.9 [facility] ([facility]) ID Date Data Source [id number] 11/08/2020 02:09:00 PM EST [facility] ([facility]) Name Value Range Interpretation Code Description Data Maddy rce(s) Supporting Document(s) INR in Platelet poor plasma by Coagulation assay 1.6 [facility] ([facility]) ID Date Data Source [id number] 11/03/2020 02:06:00 PM EST [facility] ([facility]) Name Value Range Interpretation Code Description Data Maddy rce(s) Supporting Document(s) Nkzyg-7-Lwwchtsobzz [Mass/volume] in Serum or Plasma 1.3 ng/mL [facility] ([facility]) THE AFP ASSAY IS PERFORMED ON THE TigerspikeR BY CHEMILUMINESCENCE AND SHOULD NOT BE COMPARED INTERCHANGEABLY WITH OTHER METHODS. IT SHOULD NOT BE USED ALONE A SCREENING TEST OR DIAGNOSIS FOR THE PRESENCE OR ABSENCE OF MALIGNANT DISEASE. THESE RESULTS ARE NOT INTERPRETABLE IN FEMALES. PREDICTIONS OF DISEASE RECURRENCE SHOULD NOT BE BASED SOLELY ON VALUES OBTAINED FROM SERIAL PATIENT SERUM VALUES. ID Date Data Source [id number] 11/03/2020 02:02:00 PM EST [facility] ([facility]) Name Value Range Interpretation Code Description Data Maddy rce(s) Supporting Document(s) Thyrotropin [Units/volume] in Serum or Plasma by Detec tion limit <= 0.05 mIU/L 2.99 uIU/mL 0.36-3.74 [facility] ) ID Date Data Source [id number] 11/03/2020 02:02:00 PM EST [facility] ([facility]) Name Value Range Interpretation Code Description Data Maddy rce(s) Supporting Document(s) Glucose [Mass/volume] in Serum or Plasma 102 mg/dL 74-99 [facility] ([facility]) 100-125 mg/dL PRE-DIABETES/FASTING >126 mg/dL DIABETES/FASTING Urea nitrogen [Mass/volume] in Serum or Plasma 12 mg/dL 7-18 [facility] ([facility]) Creatinine 1.0 mg/dL 0.6-1.3 [facility] Sodium [Moles/volume] in Serum or Plasma 137 meq/L 136-145 [facility] ([facility]) Potassium [Moles/volume] in Serum or Plasma 4.0 meq/L 3.5-5.1 [facility] ([facility]) Chloride [Moles/volume] in Serum or Plasma 103 meq/L 98-107 [facility] ([facility]) Calcium [Mass/volume] in Serum or Plasma 9.5 mg/dL 8.5-10.1 [facility] ([facility]) Carbon dioxide, total [Moles/volume] in Serum or Plasma 32 meq/L 21 -32 [facility] ([facility]) Glomerular filtration rate/1.73 sq M pre dicted among non-blacks [Volume Rate/Area] in Serum or Plasma by Creatinine-based formula (MDRD) Laboratory test result [facility] ([facility] ) Glomerular filtration rate/1.73 sq M pre dicted among blacks [Volume Rate/Area] in Serum or Plasma by Creatinine-based formula (MDRD) Laboratory test result [facility] ([facility]) <content>CHRONIC KIDNEY DISEASE STAGING PER NKF</content>
<content></content>
<content>STAGE I & II GFR >= 60 NORMAL TO MILDLY DECREASED</content>
<content>STAGE III GFR 30-59 MODERATELY DECREASED</content>
<content>STAGE IV GFR 15-29 SEVERELY DECREASED</content>
<content>STAGE V GFR <15 VERY LITTLE GFR LEFT</content>
<content>ESRD GFR <15 ON PET ADOPTION COUNSELOR</content>
<content></content> ID Date Data Source [id number] 11/03/2020 02:02:00 PM EST [facility] ([facility]) Name Value Range Interpretation Code Description Data Maddy rce(s) Supporting Document(s) Magnesium 2.0 mg/dL 1.8-2.4 [facility]) ID Date Data Source [id number] 11/03/2020 02:02:00 PM EST [facility] ([facility]) Name Value Range Interpretation Code Description Data Maddy rce(s) Supporting Document(s) Erythrocytes [#/volume] in Blood by Automated count 3.64 x10*6/UL 4.2 0-6.30 [facility] ([facility]) Leukocytes [#/volume] in Blood by Automated count 5.3 x10*3/UL 4.1-10 .9 [facility] ([facility]) NOTE: CBC VERIFIED Hemoglobin [Mass/volume] in Blood 11.8 g/dL 12.0-18.0 [facility] ([facility]) Hematocrit [Volume Fraction] of Blood by Automated count 35.0 % 3 7.0-51.0 [facility] ([facility]) MCV 96.1 fL 80.0-97.0 [facility] [facility] MCH 32.4 pg 26.0-32.0 [facility] [facility] MCHC 33.7 g/dL 31.0-38.0 [facility] ([facility]) Erythrocyte distribution width [Ratio] by Automated count 15.0 % 11.6-13.7 [facility] ([facility]) Platelets [#/volume] in Blood by Automated count 69 x10*3/UL 140-440 [facility] ([facility]) MPV 9.2 FL 7.8-11.0 [facility] [facility]) Lymph % 20.5 % 10.0-58.5 [facility] ([place] [facility]) Mid % 5.3 % 1.7-9.3 [facility] ([facility]) Neut % 74.2 % 37.0-92.0 [facility] [facility] Lymph # 1.0 x10*3/UL 0.6-4.1 [facility] ([facility]) Mid # 0.4 x10*3/UL 0.1-0.6 [facility] ([facility]) Neut # 3.9 x10*3/UL 2.0-7.8 [facility] ([facility]) ID Date Data Source [id number] 10/11/2020 12:00:00 AM EST [facility] Name Value Range Interpretation Code Description Data Maddy rce(s) Supporting Document(s) 2019-nCoV RNA XXX MINISTERIO+probe-Imp [facility] This lab was ordered by [facility] and reported by [employer] ID Date Data Source [id number] 10/05/2020 02:25:00 PM EST [facility] ([facility] Name Value Range Interpretation Code Description Data Maddy rce(s) Supporting Document(s) INR in Platelet poor plasma by Coagulation assay 2.4 [facility] ([facility]) ID Date Data Source [id number] 09/22/2020 02:45:00 PM EST [facility] Name Value Range Interpretation Code Description Data Maddy rce(s) Supporting Document(s) Follow Up [facility] ECYFCl3vZnUJBvLyBGNtVugVWEgkPGfxDRBtL1P8AYkmFr6IOVcxijLrDYYnNk9+JHObNR1byr7sSFAs gMy [file] gEjOc/Air Director/LcMh2pZoOOU7AGEd5r2Ucma2fjUhZqER rhh2puzZ/jmQy+Ccs7do60QOCzGwQc9szwIgCEduOhDgRu/HcQ+tHELhRitlWcI9QT9rdXuq8u7ATAgO bQoBGTeC9x09/Wvl6eMvFt7bDsCxDIg798cPeiIUrZX+CR8Rw55sfkPWSbLlOtiIDsc2vXzImxpka/0F P0rKJU0i3z/4zZFuHsra05v+5MbPAAPoMUKbyrpw7p me2d+ztvK0M06i9xQPqlzvkQRbblS2VoC9hpeL3zrE9AJaxoFAhJNt/IBs4vU9Ka5EuoD/Ta8hOf14EW w1uO5/dUr2fMROo3njtS1hHNOzk8d+U4i+N2m6TIDhCcDUt8RYBROibP7jGpx1iok5v1iTvlJVpPLphL eHkK8HoCwO1cKbma/ddYlj0sq282SHl/TIjXZwOsE3 Xzb/aglQjCS1Fyy2jpqnPqwnDwW2uhmRKxWLVpr309I49m5DSgfL1kNr4ibvNxRwIo8uW/g1SvdX9kFS qzlzPllWDPxjx9mARAYv+aAOKwn1jKm+qx0lX0dS5uHdWIApl2VrQ0NMLArkcZyvfz2EEL4O5TWA1tlT DH+MHy8bteM9NAo027xE8Tyau5fgBOR/p80ysDyN3e MGNGCp8kzE43HJRjqRfW8GEwyzS3gO+Z3hDiYxAtESdQNUmQBechBEovNLt9iSq40QgkbWSRFhKygG59 3p7TdEca1ApsfYQJJYtcTIuredVx6awxSTWv4n6QgdfMyUM/2EiSv9xNVHCIW+SWCUOCSYZ6bLHA6nXl QxhpcpJDI9qcqbkuHEZbydlvgcLC7kzb4opbLpaucJ [file] cAyW5E9aX+xIlD4JtPkpTGr+José/SexcUQK1yOc90ufWYorSqC9xwlnSgX6Pe7ednCBiWEasnhrGoWxt [file] of global marketing [file] eA3b+dBpmIGile+lz+Maria Isabel+HXfkirb8DpLgH6rie1Zk [file] GBbu7oT4TCWkps+vp of global marketing/sORCanu7/QS9qQzUc2JmHdRinVxBrzld2cIC7e0sB8qtGVGvuYllXqnqIf9qXQ [file] z8U0bDvTxdA6hi8NB/SbTC2UNjKPASv2EtjnM1l/PRACTICE ADMINISTRATOR [file] h8wBk2nbpeuTbf2l1Rw/short piece handler/Omq/4Dqtrpht+bqzuX15kX5xdcWHo/4cr+eCt9o+euwhuMiin3S0k7rp3 [file] Maria Isabel+aJNu3hf+TieLr5wjDXqMpJMn7USJBmvYnBibf5M+QwC6dD2NXSuTrMdjKwAoLyz53OMFiCtLY194 [file] guide/x1tQw [file] [facility]+woMlJrSnLUCcDGLiR5yRwfIkT8WrwM8n2nGjVROMVv9mSZn+dtpCUtI74zkumjIMcevuFHdTC [file] anesthesiologist and critical care+4O6DusZfEJiBu1vVKohEauYvDnk9lah8PdqlKL2 [file] ZaqpnB6hw84Ug8Y55f67ec84hyLBI4Ojb3V//5oBJfcD60k8BSRzjs+s5ld/Peña+acNMrOctbXw4eEF [file] +fZCVGJIKbASAy7/Inter[employer] Owner Operator Truck Driver+n9qozvVpxPh2+iCzlj7fHE3BvMXdRy3L19WlRdcsxtnUVUWQRUGJTIa8zPuag [file] FORGE HELPER/cEfeIwycTSSgZCIdkW1HDJfopqnW/Zl9jqCLHR [file] KjnuwWWsN/nay7daaSUTWMlTxv6N2lDwwdl08fPtdPpqJtIdCzyuxfsknWO+3a/jose de jesus/TQsMjKmD3ZNGn [file] L7/FF2DFTqcGCskQzBgUdro6P0XqKizogFas+Y JHiSmXt/zNgmwT6+PM2LmY2AO3fBzbj9vz1N2pSJiKY1l58r5eozmpIIYdFBToy7LU63su5oMrgli2fq O+lpzbehnQLNpXMGOw05sg3a/JmeVA3uCXxajctGtuCLvvus4gsGbGbsMoHW52jXdHycB2SwoJ1GllSz 5kOuE5mIe0+4tb7IE9wtCXf0TxejEmy8DrneBGnOv9 JDp24I/0TM8yJj/2k21QBzZXQtrKIyW9JrDXbfkForXE5mlXH1dwYQlkP5QunaZhNdjjX5xs4BjcGsk/ 8VjbjDJcTUXkwpzrzKuz0wU8sB1xL95J3hY7LoFJakH238+XBBC0v1eRwQUO8xKXuCZw1w+SANbOP20L D4Igy5i+OX/kwcU+9SY4zge4XFAluDnRVzUnbBgUzf W/hJpXbllsowvMGEv2OstLg4G0myDkKika9xcyFiqJalqpsEz7uDK2LmR/1x6m6KxIpQy/mM5YpZ/PNb 9+PXe2Is/gq2L0C8y91a+pU+USpN/d3u2kqnxP2F84HsooXYa4FcNwA0/8dxzMLWmD19unBpQNbweHk3 4NpAhnSmR194dzrNu5WDvRBGQijnnRy4R4yN8hqc4R rBoaYBim1DqM7kwMu9vqCO3QsV5Cf8uKUlXw3b83p2T/+7luADmcNIXxFDiKpX/ZTgkWQ+KKCp/QO7 [file] ER5b/short piece [file] BVeXDe7RBy9UAf0Be5fUPHfJPr9ag892/mountain guide/v3+8/5 h7pi0Tuf/22S39O03oUj57Zb8X1+yusuf+eIKb6TJrwoH+zqTowy0cHXkGnveHSbvnB7LsAHbvgQ7EeYrSX [file] alWHuva+W73i5IIX0y4pEHJSSPZh1ck+oMf9O5BEJ1xKsTbLADec6dBfVwVNO8rgu+CkPT/p5PaO/Assistant Inventory Manager [file] CH3frqHqEkP6ENzKcYr5868Ft7FuJ8YcNV614XL+Ah5QZHiWRowJfuAXiqoj3rVB3ty9X1+mountain guide+KuYEtE [file] Eg4LRkmJTdHnyX5y0fVqqJL/JUXU3pXulY/OcnD/YB33yGlXcP01m5L7pv0wrC5qQ4/CAPACITY MANAGEMENT SPECIALIST/zdIv1xHYV [file] anesthesiologist and critical care+/9YmQzizgzOzqhWywtsg8koM4+mEM33HE6oOvexOnwn/atJi4121bcKdDrcZEJ8U600sBz0Vagl2E [file] 0JCozCGL52AtBTaWRyYLI8+LICHA+8SzE4XC+4gZg87Q2SouCwwluvzgSvzf3tdF7tBuA8yjSLBYxhiB+b8 iJs6o434M3q6mvhlmKWgEFK7QjQCBtpm1Tn0ObPpMnSO+y24X7UffvaGfV7HInrLvFQWOk5H5cVcLAfx dEBuWc3qanLwfc64msoiTG3PZ0u3bJ4KpvbCiOOJHY vmDT1oaY7SCgZX/ypMkZ2uwSsklpvcTcM3mOSP8xvDp7ykHqIrf+Oj29qbYa1RHgcnHzQuoWuZDlVXY/ a2HVEkRZwAezQS5OxMEHhAW9cgb09kYMpR6JsodSnJaDOntnQQ9Nzu1tauAmcSoBONUhApAjRw215isE 7W3esPx+9fY8yW77umzoDNpopf+dQnQc0hLJYe6e/5 r0QByYAQl6d3KTP8h+r8UPNfqQm/o/Fy1zdEfWn7eVfN2tqwPoaMyaqxteYJo9r1933ZGsX0at3gBUsL 0J5me3D73glpybbhWVfLHaeYtnzG/COYz6Jf0qBO5VYcW8S2zYa10qNyF+7O69gOqcUOs/Xz2UcpG1Xl UB5ljq78pbQXXsfQPpjw7XFeEMAZb90AJJl8UViGNk aBit/Bcxdso+q3nrF39B2l7kjhs5P/1d1xc9GMlw8PlK0/nGgzr6EkgzmeYBAZl3zWL3msKbxDpFEKtQ nHOhJrOtITBuLLFiNlAlbJqdsTgwwKDLOyWciTD24Ft8KP50UjeJztbOlct6iVLTdgT6S7ENKhoo5aEc mYuJk04PhSy3rehDRbgA8JlsQQChKIjsNGpmOSajAz KUv5x1SsL/4gTbBs2XszEsTdyeYcP6vsUewhVJ+VQ3LFBh3m5wQI06SRG0+nj4UQee635ZPDgOnFoB1G 31w9n3egI3HLOBqLR1u8ViJlUENakacJoFll2FValyoAB/4swOA+NsNG0JHrYlZynIpqtru1r9ziNy3u TdlviXSYmfX/i+jTCgtLggrpmOY9SlpO9lHzgpKf1j UKvgLNEwz+w//bottled beverage inspector/CPEJLQBpWnKUFfPMuaX6kEQNo8CrJr6efCCDfk0Y8fNwepa8HyanExThLVCJdA+ [file] bwmp8b2TIgqnqpMw7rRClJKx+jawo+8Pom1SoSaxuo KAYNYIYaGB5fQX7uQqBZ14v+YOdaxe9/Forest Law And Policy Professor/NmX5lIuIUEUs3YwxSix/hdCBboABOrgIwwKKIEF12cPC [file] rubber stamp dies inspector/DmsHfAGgUIDM4ji4BkDK0VV/6KDfo3IzzswjW81DqjkDxzcMyyV+1kenPdktL78mLN5bDKjVH5Ql [file] [facility] [file] FEae/[employer] Owner Operator Truck Driver+A1uLEIxj4jASlfkTnQ06B1gwy2kF9uR3dbCQ0W7kx4znB/V6s379jw6jEuo4ZnjESDd0AE36 [file] vvD31nZGQeKC4QW/xvzgfUMI5I55gKGS9EnPOC9g9qMM+mountain guide/1eLfzrr+2zxgp43/2wUH/0+MP0/Rg0es [file] Maria Isabel+Urf8+YIxSjZuzbXsqJTLFMJHVOBej+hvgoOrvqNLB+FESuNL4Oew2BAcd0AYKZGezU8OBjCKbCiH [file] a3Ua1tqnukBWRKGd4/X6aOlp2S8xvnMTAXy6fW6J+6l/KjthIs94iljeuIi1SdyQ0AUcQkmjYvUqB/short piece handler [file] X76f6u2JlTwq0aUWD81CFGKu9j5gJtcaAhhpXN52k/TueH35XTnmZi1WiKXJHcnxDwmn+cubphE9/Forest Law And Policy Professor [file] of global marketing/q1acdSGuUpo/6oTl0JDaRRW+VgThM6/i13i0m [file] hOOMRcDtHF5DXe/conformal pad former+AlxPXrrwVreUAxmQ8llkW0r [file] cHBwBwBwBwBwBwBwBwBw[facility]wBwBw[facility] CenterBwBw[facility] BwBwBwBwBwBwCaroMont HealthBw/700wW/dbcXrCdiYZ5BeH3FRk5cEbN+AFWxpl69Ug7 HWYl/p17ZlJTzXcPa44yTdE1mNDGLRQ1+Ci+9zCeVLouYHmLm84+mPMCptv4zTvdN1p+pyIQekp79j57 6z0QVUYYM7IyQHPWi39sF7YiGd4wzqEd7xk6OsAbKX LVFazXpVF304um2d+WlVpzfOgd0imrh4yvQwDkpJA93Y7f6eWY2aeJj5HPW6SQ5FZoXKIfk8r0hQlVaC popx11zdt8KByKI9J/0aaKAe4hcBXwB2o90MXojMz+wZcIog6/EByYmA3k8jS+AigIpCaIIyolJuW+Ke pcelDF0Wmz+27GQ8oVmXVu91rakiUPRx42mJlCuYGP pLG95p0Y6pmi3Kun2qIBs883PE3BtizX8K4hBdFY0KP3FfCyUwkZNe+ItdPRJGIQ2CbOBMs8XWPXvdS4 b8eJ66msg3r6bSAAZ34zyDEYDpzATD1LIhSkq53VIyT+dAYiq/krCPxaecTKsV3N31C76/0xRRk61KD0 wr9qEAOpFXro22aPROelfgr9fhtXV/zKIYu7w0f/1b Y92EDsrjwwz4+HnD9DEPih6qqx3frFMMhrf74+Zu5OSDqqWvwjXiygPFirJR69h16u9BkXPO7rlSN66P bCK8PfXFmrhXelOa6yP3Ii/FRLQjj+5ZUJYmjYvFMqceRoF3nV0K7LuNJWFX2TkgnPA3e0Vnq+K0nVnC ttXvOFVixDi/qxFYr+HcHpQhY/MJgKVCXpjjiae/ut [file] XncTWMusiwZrpYDwCH4GIgHbLR9aqn2YZwL3GCA2vRHzCj5WHrR3DqT5Bi4CNEMHM4A= ID Date Data Source [id number] 09/21/2020 03:31:00 PM EST [facility]) Name Value Range Interpretation Code Description Data Maddy rce(s) Supporting Document(s) INR in Platelet poor plasma by Coagulation assay 1.8 [facility] ([facility]) ID Date Data Source [id number] 09/15/2020 03:37:00 PM EST [facility] ([facility]) Name Value Range Interpretation Code Description Data Maddy rce(s) Supporting Document(s) INR in Platelet poor plasma by Coagulation assay 3.7 [facility] ([facility]) ID Date Data Source [id number] 08/31/2020 02:37:00 PM EDT [facility] ([facility]) Name Value Range Interpretation Code Description Data Maddy rce(s) Supporting Document(s) INR in Platelet poor plasma by Coagulation assay 3.4 [facility] ([facility]) ID Date Data Source [id number] 08/26/2020 01:47:00 PM EDT [facility] ([facility]) Name Value Range Interpretation Code Description Data Maddy rce(s) Supporting Document(s) Albumin % 45.0 % 55.8-66.1 [facility] ([facility]) Sdsqt-0-Unevgboo % 3.5 % 2.9-4.9 [facility] Vjcez-8-Lthewzmds % 9.7 % 7.1-11.8 [facility] Agof-0-Hlamddwww % 5.0 % 3.2-6.5 [facility] ([facility]) Gamma Globulin % 5.9 % 11.1-18.8 [facility] ([facility]) Cnzp-4-Sxxjepxgp % 30.9 % 4.7-7.2 [facility] ([facility]) Gnxsp-7-Pmcvtpqhb 0.27 GM/DL 0.17-0.41 [facility] [facility] Albumin 3.42 GM/DL 3.29-5.55 [facility] ([facility] Qblof-8-Iqvbisbfx 0.74 GM/DL 0.42-0.99 [facility] ([facility]) Yfro-6-Chapwbxxx 2.35 GM/DL 0.28-0.60 [facility] ([facility]) Gamma Globulins 0.45 GM/DL 0.65-1.58 [facility] ([facility]) Mhkk-5-Ortyrhsgh 0.38 GM/DL 0.19-0.55 [facility] ([facility]) Total Protein 7.6 GM/DL 6.4-8.2 [facility] ([facility]) Laboratory test finding (navigational concept) Laboratory test result [facility] ([facility]) REV'D BY Jasmyne Braun Interpretation Laboratory test result [facility] ([facility]) M-SPIKE NOTED IN BETA 1 REGION. CONCENTRATION = 2.22 GM/DL ID Date Data Source [id number] 08/26/2020 01:47:00 PM EDT [facility] ([facility]) Name Value Range Interpretation Code Description Data Maddy rce(s) Supporting Document(s) Immunotyping Serum Igg Laboratory test result [facility] ([facility]) It Serum Interpretation Laboratory test result [facility] ([facility]) MONOCLONAL IGG KAPPA Immunotyping Serum [place] Laboratory test result [facility] ([facility]) Laboratory test finding (navigational concept) Laboratory test result [facility] ([facility]) REV'D BY Jasmyne RUIZ ID Date Data Source [id number] 08/26/2020 01:47:00 PM EDT [facility] ([facility]) Name Value Range Interpretation Code Description Data Maddy rce(s) Supporting Document(s) Immunoglobulin A 146.0 mg/dL 70-400 [facility] ([facility]) Immunoglobulin G 2210 mg/dL 681-1648 [facility] ([facility]) Immunoglobulin M 25.4 mg/dL 40-230 [facility] ([facility]) ID Date Data Source [id number] 08/26/2020 01:47:00 PM EDT [facility] ([facility]) Name Value Range Interpretation Code Description Data Maddy rce(s) Supporting Document(s) Blood Urea Nitrogen 14 mg/dL 7-18 [facility] ([facility]) Glucose, Fasting 101 mg/dL 70-100 [facility] ([facility]) Creatinine For GFR 0.91 mg/dL 0.70-1.30 [facility] ([facility]) Sodium Level 142 meq/L 136-145 [facility] ([facility]) Glomerular Filtration Rate Laboratory test result [facility] ([facility]) <content>Units are mL/min/1.73 m2</content>
<content></content>
<content>Chronic Kidney Disease Staging per NKF:</content>
<content></content>
<content>Stage I & II GFR >=60 Normal to Mildly Decreased</content>
<content>Stage III GFR 30- 59 Moderately Decreased</content>
<content>Stage IV GFR 15-29 Severely Decreased</content>
<content>Stage V GFR <15 Very Little GFR Left</content>
<content>ESRD GFR <15 on PET ADOPTION COUNSELOR</content>
<content></content> Potassium Serum 3.4 meq/L 3.5-5.1 [facility] ([facility]) Carbon Dioxide Level 26 meq/L 21-32 [facility] ([facility]) Anion Gap 7 meq/L 8-16 [facility] ([facility]) Chloride Level 109 meq/L 98-107 [facility] ([facility]) Alt/SGPT 19 U/L 12-78 [facility] ([facility]) Calcium Level 9.5 mg/dL 8.8-10.2 [facility] ([facility]) Ast/Sgot 27 U/L 7-37 [facility] ([facility]) Alkaline Phosphatase 74 U/L 45-117 [facility] ([facility]) Bilirubin,Total 0.5 mg/dL 0.2-1.0 [facility] ([facility]) Total Protein 7.6 GM/DL 6.4-8.2 [facility] ([facility]) Albumin/Globulin Ratio 0.7 [facility] ([facility]) Albumin 3.2 GM/DL 3.2-5.2 [facility] ([facility]) ID Date Data Source [id number] 08/26/2020 01:47:00 PM EDT [facility] ([facility]) Name Value Range Interpretation Code Description Data Maddy rce(s) Supporting Document(s) Njhl-5-Rtooupgxxuddi [Mass/volume] in Serum or Plasma 3.4 mg/L 0.6- 2.4 [facility] ([facility]) Siemens Immulite 2000 Immunochemiluminom etric assay (ICMA) . Values obtained with different assay methods or kits cannot be used interchangeably. Results cannot be interpreted as absolute evidence of the presence or absence of malignant disease. Performed at: [address] [id number] Embedded Software Architect: Kenisha Govea MD, Phone: [phone] Platelets reticulated/100 platelets in Blood by Automated co unt 10.4 % 0.0-10.91 [facility] ([facility]) ID Date Data Source [id number] 08/26/2020 01:47:00 PM EDT [facility] ([facility]) Name Value Range Interpretation Code Description Data Maddy rce(s) Supporting Document(s) White Blood Count 6.3 10 4.0-10.0 [facility] ([facility]) Red Blood Count 3.73 10 4.30-6.10 [facility] ([facility]) Hemoglobin 12.1 g/dL 13.5-17.5 [facility] Hematocrit 38.2 % 42.0-52.0 [facility] Mean Corpuscular Volume 102.4 fl 80.0-96.0 [facility] ([facility]) Mean Corpuscular Hemoglobin 32.4 pg 27.0-33.0 ME DENT ([facility]) Mean Corpuscular HGB Conc 31.7 g/dL 32.0-36.5 MEDE NT ([facility]) Red Cell Distribution Width 16.0 % 11.5-14.5 ME DENT ([facility]) Platelet Count, Automated 76 10 150-450 MEDE NT ([facility]) [place] % 11.6 % 0.0-5.0 [facility]) Neutrophils % 62.8 % 36.0-66.0 [facility] ([facility]) Lymph % 22.3 % 24.0-44.0 [facility]) Eos % 2.5 % 0.0-3.0 [facility]) Baso % 0.5 % 0.0-1.0 [facility]) Immature Granulocyte % 0.3 % 0-3.0 [facility] ([facility]) Lymph # 1.4 10 1.5-5.0 [facility]) Neutrophils # 3.9 10 1.5-8.5 [facility] ([facility]) Nucleated Red Blood Cell % 0.0 % 0-0 MED ENT ([facility]) Baso # 0.0 10 0.0-0.2 [facility] [place] # 0.7 10 0.0-0.8 [facility] Eos # 0.2 10 0.0-0.5 [facility] ID Date Data Source US Duplex, Ext LOWER Veins, Unilat 08/20/2020 04:10:25 AM ED T eCW1 ([facility]) Name Value Range Interpretation Code Description Data Maddy rce(s) Supporting Document(s) US Duplex, Ext LOWER Vein s, Unilat eCW1 ([facility]) ID Date Data Source [id number] 07/30/2020 02:55:00 PM EDT [facility] ([facility]) Name Value Range Interpretation Code Description Data Maddy rce(s) Supporting Document(s) INR in Platelet poor plasma by Coagulation assay 2.9 [facility] ([facility]) ID Date Data Source [id number] 07/30/2020 02:00:00 PM EDT [facility] ([facility]) Name Value Range Interpretation Code Description Data Maddy rce(s) Supporting Document(s) Magnesium 1.8 mg/dL 1.8-2.4 [facility] [facility] ID Date Data Source [id number] 07/30/2020 02:00:00 PM EDT [facility] ([facility]) Name Value Range Interpretation Code Description Data Maddy rce(s) Supporting Document(s) Glucose [Mass/volume] in Serum or Plasma 89 mg/dL 74-99 [facility] ([facility]) 100-125 mg/dL PRE-DIABETES/FASTING >126 mg/dL DIABETES/FASTING Creatinine 1.0 mg/dL 0.6-1.3 [facility] Urea nitrogen [Mass/volume] in Serum or Plasma 23 mg/dL 7-18 [facility] ([facility]) Sodium [Moles/volume] in Serum or Plasma 140 meq/L 136-145 [facility] ([facility]) Potassium [Moles/volume] in Serum or Plasma 3.7 meq/L 3.5-5.1 [facility] ([facility]) Chloride [Moles/volume] in Serum or Plasma 103 meq/L 98-107 [facility] ([facility]) Carbon dioxide, total [Moles/volume] in Serum or Plasma 29 meq/L 21 -32 [facility] ([facility]) Glomerular filtration rate/1.73 sq M pre dicted among blacks [Volume Rate/Area] in Serum or Plasma by Creatinine-based formula (MDRD) Laboratory test result [facility] ([facility]) <content>CHRONIC KIDNEY DISEASE STAGING PER NKF</content>
<content></content>
<content>STAGE I & II GFR >= 60 NORMAL TO MILDLY DECREASED</content>
<content>STAGE III GFR 30-59 MODERATELY DECREASED</content>
<content>STAGE IV GFR 15-29 SEVERELY DECREASED</content>
<content>STAGE V GFR <15 VERY LITTLE GFR LEFT</content>
<content>ESRD GFR <15 ON PET ADOPTION COUNSELOR</content>
<content></content> Glomerular filtration rate/1.73 sq M pre dicted among non-blacks [Volume Rate/Area] in Serum or Plasma by Creatinine-based formula (MDRD) Laboratory test result [facility] ([facility] ) Calcium [Mass/volume] in Serum or Plasma 9.8 mg/dL 8.5-10.1 [facility] ([facility]) ID Date Data Source [id number] 07/30/2020 02:00:00 PM EDT [facility] ([facility]) Name Value Range Interpretation Code Description Data Maddy rce(s) Supporting Document(s) Leukocytes [#/volume] in Blood by Automated count 5.8 x10*3/UL 4.1-10 .9 [facility] ([facility]) Erythrocytes [#/volume] in Blood by Automated count 3.79 x10*6/UL 4.2 0-6.30 [facility] ([facility]) MCV 96.5 fL 80.0-97.0 [facility] ([facility]) Hematocrit [Volume Fraction] of Blood by Automated count 36.6 % 3 7.0-51.0 [facility] ([facility]) Hemoglobin [Mass/volume] in Blood 12.2 g/dL 12.0-18.0 [facility] ([facility]) MCHC 33.3 g/dL 31.0-38.0 [facility]) Platelets [#/volume] in Blood by Automated count 74 x10*3/UL 140-440 [facility] ([facility]) NOTE: RESULT VERIFIED. Erythrocyte distribution width [Ratio] by Automated count 15.7 % 11.6-13.7 [facility] ([facility]) MCH 32.2 pg 26.0-32.0 [facility]) Lymph % 28.2 % 10.0-58.5 [facility] MPV 10.7 FL 7.8-11.0 [facility] [facility] Mid # 0.6 x10*3/UL 0.1-0.6 [facility] ([facility]) Neut % 63.4 % 37.0-92.0 [facility] Mid % 8.4 % 1.7-9.3 [facility] [facility] Lymph # 1.5 x10*3/UL 0.6-4.1 [facility] ([facility]) Neut # 3.5 x10*3/UL 2.0-7.8 [facility] ([facility]) ID Date Data Source [id number] 07/19/2020 09:25:43 PM [facility] Value Range Interpretation Code Description Data Maddy rce(s) Supporting Document(s) Prostate Specific Ag Free/Prostate specific Ag.total in Serum or Plasma <4.0 [facility] Serum levels of PSA should not be interp reted as absolute evidence of the presence or absence of Cancer. Results obtained with different methods cannot be used interchangeably. This method is manufactured by [employer] and is an electrochemiluminesence immunoassay. ID Date Data Source [id number] 07/19/2020 04:03:54 PM [facility] Value Range Interpretation Code Description Data Maddy rce(s) Supporting Document(s) Progress Note [facility] RYLYAt6tZcQRIgZo32/IKEmoXDUtk6GvHDstMZy8GEohGUYhJ5WxLDZ6nQ1mKIY0TKbNNqZeFgZxVQY8 lbm [file] AgICAgICAgICAgICAgICAgICAgICAgICAgICAgICAgICAgICAgICAgICAgICAgICAgICANCiAgICAgIC AgICAgICAgICAgICAgICAgICAgICAgICAgICAgICAg ICAgICAgICAgICAgICAgICAgICAgICAgICAgICAgICAgICAgICAgICAgICAgICAgICAgICAgICAgICAg ICANCiAgICAgICAgICAgICAgICAgICAgICAgICAgICAgICAgICAgICAgICAgICAgICAgICAgICAgICAg ICAgICAgICAgICAgICAgICAgICAgICAgICAgICAgIC AgICAgICAgICAgICANCiAgICAgICAgICAgICAgICAgICAgICAgICAgICAgICAgICAgICAgICAgICAgIC AgICAgICAgICAgICAgICAgICAgICAgICAgICAgICAgICAgICAgICAgICAgICAgICAgICAgICANCiAgIC AgICAgICAgICAgICAgICAgICAgICAgICAgICAgICAg ICAgICAgICAgICAgICAgICAgICAgICAgICAgICAgICAgICAgICAgICAgICAgICAgICAgICAgICAgICAg ICAgICANCiAgICAgICAgICAgICAgICAgICAgICAgICAgICAgICAgICAgICAgICAgICAgICAgICAgICAg ICAgICAgICAgICAgICAgICAgICAgICAgICAgICAgIC AgICAgICAgICAgICAgICANCiAgICAgICAgICAgICAgICAgICAgICAgICAgICAgICAgICAgICAgICAgIC AgICAgICAgICAgICAgICAgICAgICAgICAgICAgICAgICAgICAgICAgICAgICAgICAgICAgICAgICANCi AgICAgICAgICAgICAgICAgICAgICAgICAgICAgICAg ICAgICAgICAgICAgICAgICAgICAgICAgICAgICAgICAgICAgICAgICAgICAgICAgICAgICAgICAgICAg ICAgICAgICANCiAgICAgICAgICAgICAgICAgICAgICAgICAgICAgICAgICAgICAgICAgICAgICAgICAg ICAgICAgICAgICAgICAgICAgICAgICAgICAgICAgIC AgICAgICAgICAgICAgICAgICANCiAgICAgICAgICAgICAgICAgICAgICAgICAgICAgICAgICAgICAgIC AgICAgICAgICAgICAgICAgICAgICAgICAgICAgICAgICAgICAgICAgICAgICAgICAgICAgICAgICAgIC ANCjw/pFLgY4mxbXCvzpC6L0emEd5JUw8IUI0qn9Pl CVVfLRrdtxRrOvjYYtTmKDOfHqqPYfd0JXiqCB8ZzYTmE6BoB4MgKKcmMJ5WHSVeDQErfMNlTLDiIWIz UwA2RQJwPZrjHK3QpXVxSDovQWUxXNPqWxVkJPNxQERjFBXsBJQeHVLQIIHeSGXvIjKiLAVhQUKjXI2E BPBcY732akRbGo1XPn4EEzAxLY1biv1VDhEcCNNuEs vYZwj2BWbbGO2LdEPcrIZeLnCaJBLIGtQmG4lrx7GaLoWnOGZGNXdqEN6Pf2ZnmUArMAd+Ze1PGZ4cf9 PwDQwyAlIeCY8yye3IUQnEYzUrI5LebQaqWKQkj2dqFYIjTU6pkWElSVH8WM5jAPciG3npmHgpsipvVH OoWCUwBS9uZD3yIANrCWArWbUiGXAJFZ1QGNBfTRPs xUZrMMYlBRYHGN6SFNyjFAG5PUQpkwSpsMBlARwhDR6GJOUcxwGqGwLiPUETLIk+Lu4BFS9ar5BcAWvp KuAbPF9ghv6XAQmQQfXaE2Z2oNWxS4J1MQwoBr0UUSFiLKYlAyRsDPQFHNmfNI6RXK0jpiD8NE3LlEMg NDWeSLNwyIIaZJo6Z76agMKbDHfuZE9HKDF+Rosa+Pg 3EJUNdUDOlHLBpVhHdBZMPSvItJ8AaN1LYb6TkS0MkHR65lXwpscDvOFmdZX6KPB5yXTOvHGMIDD6GyQ RxcQ3difWmUJEaACEFDqTiU46fsHJxTXAqXNI1AJFgAt9SXWQuN4CojqYeyEvvhnYyMPNiBNFEPM0VYB uhwjCyvELrxFvbHM76qMkaJW2XUo8XPkUaUE3dbu0M bYZiIg9IOBXrEC9LWOTxMNZeSWTnBPW6SXKkGpIhYBrrUTKeAINeHRP3TOLzWRPkVV5IHhAhTHQdFoC1 BNPqVJYqEFEujz6JGGMlGTVbRCN3RSDlOWAxODIfMRaiOHEdXJUgEFS2QZTiUCCuZV3JHdAjIKEoQROu SAAmQGZbUERqix0XXQNoVMTsRmVrLrWdBQPtUHJwHN siAZJrTLE6AxX3GUJhLJBhPQ9OIqTvKCOkLUA1PoymRNVxLERfib1UOCRkYEWaOAG7TtDgIIUuOOXsPY eyJGGbBSZ7EpLkGHGaMNGwIG6EXpGfZUQaFWZrWTiwWAHsWKPyhk9BXXOpDAUaZuIxTIEkKMFeWTScFE ljXFZfPIW5ZntvWSQkHURvLN4LXjKqNQZdPCF6FZVa AUNsYEUqey9CGHQfXQMeAOA0FzJiVIIsXKUtPZllREBrETD2PcRfBCSxUAIzGS1DDaInMWFnBFq7NkYo MDUyFCBabt8EPVKlJLFcVJamKWYuKGWmZCZtHPmnIMNjYZNpOIOkMLInWXCtHB8NGtVhYTEkKlIkFlQe YNAnQFPazt5WUJBdBTWrURC0LJGeDGUqRZPfDPqpPQ PqBMCcAAMrORNlDDAjLV8JWsSfCQDrOeR0PQZaAGSiHMZggg9OFDYhEYClJyAsPjQdNTLeZTPxFQvaHI AeINOmEQX7QIDrPFEfVA1DIjWvFBMoFaV4ByWoHFUpYZMcow7MSJPsJZFaNbdpMbYiGOXuJCXuVLwxCK EeQJA2LnW0KUZcDFMmIM8ZDaHrPALwFfL4ADRfCEKo NBBkky5ADKSaXADaBLYtGxFcLSGmAQVqWCuyFMNyNWY5AOK0XVKqEEIxXH2YZxAlUQOwKpWwAFmrJSBb UPOjlx1VSKFvICHcBnJhAEEtHYVbYIDjKSggVCUqWKO8AOAjCHJuBOJrCK5DQbKtOVGcPkntCeGxKJNt OBTtgr6CTCZzXFTkXZV5OdRvNTMdMXUlMFvjQUTfSX B6YCXdFKPdMYTdUZ9MFnQrACokGXHWDvu1MOxhZ6m5SYFiSE0XD7Fpo1UbSqnkWUJHOPlxRX0skqQmDH XdUx4WB0mSHmm3HZSgTfZuEXC1CoGyJRzpFIA3UzBdQ9CqSYW3B7U9Dd0gUQepJIEvWZO0GNF8JhBeL7 S1UbLwRIC1X3JqQsGtFoGqRmXwYK5UXf3WWbB5BXO2xGNkOk5DQbn8PTQGLfKnAS9HXPq= ID Date Data Source [id number] 07/21/2020 10:13:52 AM EDT [facility] Service Cmnt XXX-Imp : NoneMicroorganism XXX Cult : No growth 2 days Name Value Range Interpretation Code Description Data Maddy rce(s) Supporting Document(s) ID Date Data Source [id number] 07/19/2020 09:09:44 PM EDT [facility] Name Value Range Interpretation Code Description Data Maddy rce(s) Supporting Document(s) Color of Urine [facility] Clarity of Urine [facility] Specific gravity of Urine by Refractometry automated 1.011 1.003 -1.030 [facility] pH of Urine by Automated test strip 7.0 5.0-8.0 [facility] Protein [Mass/volume] in Urine by Automated test strip 30 mg/dL Neg ative A [facility] Glucose [Mass/volume] in Urine by Automated test strip Neg [facility] Ketones [Mass/volume] in Urine by Automated test strip Neg [facility] Bilirubin.total [Presence] in Urine by Automated test strip Negative [facility] Hemoglobin [Presence] in Urine by Automated test strip Neg [facility] Leukocyte esterase [Presence] in Urine by Automated test strip Negative [facility] Nitrite [Presence] in Urine by Automated test strip Negati [facility] Leukocytes [#/area] in Urine sediment by Automated count 0 /HPF 0 -5 [facility] Erythrocytes [#/area] in Urine sediment by Automated count 2 /HPF 0-3 [facility] ID Date Data Source [id number] 07/15/2020 02:56:00 PM EDT [facility] ([facility]) Name Value Range Interpretation Code Description Data Maddy rce(s) Supporting Document(s) FVC-Pred 3.48 L [facility] ([facility]) PDFReport Laboratory test result MED[facility] ([facility], ) FVC-Pre 2.39 L [facility] ([facility]) FVC-%Pred-Pre 68 L [facility] ([facility]) FVC-LLN 2.60 L [facility] ([facility]) Fev1-Pred 2.41 L [facility] ([facility]) Fev1-%Pred-Pre 57 L [facility] ([facility]) Fev1-LLN 1.66 L [facility] ([facility]) Fev1-Pre 1.38 L [facility] ([facility]) Fev6-Pre 2.38 L [facility] ([facility]) Fev6-%Pred-Pre 74 L [facility] ([facility]) Fev6-Pred 3.21 L [facility] ([facility]) Fev6-LLN 2.35 L [facility] ([facility]) Nqg4mqg-%Pred-Pre 81 % [facility] ([facility]) Frg8aqy-Acpe 71 % [facility] ([facility]) Clq7bia-Nyu 58 % [facility] ([facility]) Pyk9rzp-Pdm 99 % [facility] ([facility]) Vzu2dep-QZR 61 % [facility] ([facility]) Gju6eyg-Jbgk 92 % [facility] ([facility]) FEFMax-Pre 3.93 L/E/sec [facility] ([facility]) FEFMax-Pred 6.13 L/E/sec [facility] ([facility]) Zcw4hey-%Pred-Pre 107 % [facility] ([facility]) Omx0086-Hqlj 1.54 L/E/sec [facility] ([facility]) FEFMax-LLN 3.94 L/E/sec [facility] ([facility]) FEFMax-%Pred-Pre 64 L/E/sec [facility] ([facility]) Kor5024-%Pred-Pre 40 L/E/sec [facility] ([facility]) Kdb9131-Tgx 0.62 L/E/sec [facility] ([facility]) Mko0906-URW 0.03 L/E/sec [facility] ([facility]) ExpTime-Pre 6.47 sec [facility] ([facility]) Ldi6xxe7-[place] 58 % [facility] ([facility]) Gkf9ewq5-Lkhr 76 % [facility] ([facility]) Xkv0hpz8-%Pred-Pre 76 % [facility] ([facility]) Snk6njs5-RNG 67 % [facility] ([facility]) Procedure Social History Code Duration Value Status Description Data Source(s ) Alcohol intake 07/26/2021 12:00:00 AM EDT Current non-d jordon of alcohol (finding) completed Current non-drinker of alcohol (finding) [facility] Alcohol intake 03/28/2021 12:00:00 AM EDT Current non-d jordon of alcohol (finding) completed Current non-drinker of alcohol (finding) [facility] Alcohol intake 02/21/2021 12:00:00 AM EDT No completed [facility] Cigarettes smoked current (pack per day) - Reported 02/22/20 12:00:00 AM EDT UNK completed [facility] Smoking 02/21/2021 12:00:00 AM EDT Former smoker completed Former smoker [facility] Smoking 11/17/2020 02:17:34 PM EST Ex-smoker (finding) complet ed Ex-smoker (finding) LESIA (Anatoliy Tavarez MD [facility]) Smoking 10/08/2020 12:00:00 AM EST Former Smoker completed Former Smoker eCW1 ([facility]) Smoking 09/17/2020 12:00:00 AM EST Former Smoker completed Former Smoker eCW1 ([facility]) Smoking 09/17/2020 12:00:00 AM EST Former Smoker completed Former Smoker eCW1 ([facility]) Smoking 09/17/2020 12:00:00 AM EST Former Smoker completed Former Smoker eCW1 ([facility]) Smoking 09/02/2020 12:00:00 AM EDT Former Smoker completed Former Smoker eCW1 ([facility]) Smoking 08/27/2020 12:00:00 AM EDT Former Smoker completed Former Smoker eCW1 ([facility]) Smoking 08/27/2020 12:00:00 AM EDT Former Smoker completed Former Smoker eCW1 ([facility]) Alcohol intake 07/19/2020 12:00:00 AM EDT Current non-d jordon of alcohol (finding) completed Current non-drinker of alcohol (finding) [facility] Tobacco use and exposure 07/19/2020 12:00:00 AM EDT Former user co mpleted Former user [facility] Cigarette pack-years 07/19/2020 12:00:00 AM EDT UNK completed [facility] Cigarettes smoked current (pack per day) - Reported 07/19/20 12:00:00 AM EDT UNK completed [facility] Smoking 07/19/2020 12:00:00 AM EDT Former smoker completed Former smoker [facility] Vital Signs ID Date Data Source UNK Name Value Range Interpretation Code Description Data Source(s) Body weight 214.00 [lb_av] 214.00 [lb_av] KAYLEN Merino ([facility]) Systolic blood pressure 120 mm[Hg] 120 mm[Hg] [facility] Diastolic blood pressure 60 mm[Hg] 60 mm[Hg] [facility] Heart rate 68 /min 68 /min [facility] Respiratory rate 20 /min 20 /min [facility] Body height 172.7 cm 172.7 cm [facility] Body weight 94.802 kg 94.802 kg [facility] Body mass index (BMI) [Ratio] 31.78 kg/m2 31.78 kg/m2 [facility] Oxygen saturation in Arterial blood by Pulse oximetry 95 % 95 % [facility] [place] body weight 154 [lb_av] 154 [lb_av] [facility] Body weight 91.627 kg 91.627 kg [facility] ([facility]) Body surface area Derived from formula 2.05 m2 2.05 m2 [facility] ([facility]) Systolic blood pressure 108 mm[Hg] 108 mm[Hg] M EDENT ([facility]) Diastolic blood pressure 70 mm[Hg] 70 mm[Hg] [facility] ([facility]) Heart rate 65 /min 65 /min [facility] ([facility], ) Oxygen saturation in Arterial blood by Pulse oximetry 97 % 97 % [facility] ([facility]) Room Air Body height 68 [in_i] 68 [in_i] [facility] ([facility]) 5'8" Body weight 202.00 [lb_av] 202.00 [lb_av] CHRISEN T ([facility]) Body mass index (BMI) [Ratio] 30.7 kg/m2 30.7 k g/m2 [facility] ([facility]) Body weight 210.00 [lb_av] 210.00 [lb_av] KAYLEN Merino ([facility]) Systolic blood pressure 126 mm[Hg] 126 mm[Hg] M EDWADE ([facility]) RT Arm Body mass index (BMI) [Ratio] 32.4 kg/m2 32.4 k g/m2 [facility] ([facility]) Diastolic blood pressure 58 mm[Hg] 58 mm[Hg] [facility] ([facility]) RT Arm Heart rate 92 /min 92 /min [facility] Body height 67.75 [in_i] 67.75 [in_i] [facility] ([facility]) 5'7.75" Body weight 211.50 [lb_av] 211.50 [lb_av] MEDEN T ([facility]) Body weight 209.00 [lb_av] 209.00 [lb_av] MEDEN T ([facility]) Body weight 211.00 [lb_av] 211.00 [lb_av] MEDEN T ([facility]) Systolic blood pressure 122 mm[Hg] 122 mm[Hg] [facility] Body height 172.7 cm 172.7 cm [facility] Body weight 99.066 kg 99.066 kg [facility] Body mass index (BMI) [Ratio] 33.21 kg/m2 33.21 kg/m2 [facility] Oxygen saturation in Arterial blood by Pulse oximetry 96 % 96 % [facility] Diastolic blood pressure 64 mm[Hg] 64 mm[Hg] [facility] Heart rate 79 /min 79 /min [facility] Systolic blood pressure 132 mm[Hg] 132 mm[Hg] M EDWADE ([facility]) RT Arm Diastolic blood pressure 66 mm[Hg] 66 mm[Hg] MEDENT ([facility]) RT Arm Heart rate 76 /min 76 /min [facility] ([facility]) Body height 67.75 [in_i] 67.75 [in_i] MEDENT ([facility]) 5'7.75" Body weight 206.25 [lb_av] 206.25 [lb_av] MEDEN T ([facility]) Oxygen saturation in Arterial blood by Pulse oximetry --post exerci se 95 % 95 % [facility] ([facility]) RM Air Body mass index (BMI) [Ratio] 31.6 kg/m2 31.6 k g/m2 MEDENT ([facility]) Body weight 210.00 [lb_av] 210.00 [lb_av] MEDEN T ([facility]) Systolic blood pressure 118 mm[Hg] 118 mm[Hg] [facility] Heart rate 87 /min 87 /min [facility] Respiratory rate 22 /min 22 /min [facility] Body height 172.7 cm 172.7 cm [facility] Body weight 93.895 kg 93.895 kg [facility] Body mass index (BMI) [Ratio] 31.47 kg/m2 31.47 kg/m2 [facility] Oxygen saturation in Arterial blood by Pulse oximetry 96 % 96 % [facility] Diastolic blood pressure 64 mm[Hg] 64 mm[Hg] [facility] Body weight 213.00 [lb_av] 213.00 [lb_av] MEDEN T ([facility]) Body weight 216.00 [lb_av] 216.00 [lb_av] [facility] Heart rate 80 /min 80 /min [facility] ([facility], ) Diastolic blood pressure 80 mm[Hg] 80 mm[Hg] [facility] ([facility], ) Systolic blood pressure 130 mm[Hg] 130 mm[Hg] [facility] ([facility], ) Oxygen saturation in Arterial blood by Pulse oximetry 96 % 96 % [facility] ([facility], ) Room Air Body height 68 [in_i] 68 [in_i] [facility] ([facility], ) 5'8" Body weight 216.00 [lb_av] 216.00 [lb_av] [facility], [facility] Body mass index (BMI) [Ratio] 32.8 kg/m2 32.8 k g/m2 [facility] [place] body weight 154 [lb_av] 154 [lb_av] MEDEN T ([facility]) Body weight 97.978 kg 97.978 kg [facility] ([facility]) Body surface area Derived from formula 2.11 m2 2.11 m2 [facility] ([facility]) Body height 67.75 [in_i] 67.75 [in_i] MEDENT ([facility]) 5'7.75" Diastolic blood pressure 70 mm[Hg] 70 mm[Hg] [facility] ([facility]) RT Arm Systolic blood pressure 146 mm[Hg] 146 mm[Hg] M EDENT ([facility]) RT Arm Heart rate 91 /min 91 /min [facility] ([facility]) Body weight 216.25 [lb_av] 216.25 [lb_av] [facility] Oxygen saturation in Arterial blood by Pulse oximetry --post exerci se 92 % 92 % [facility] ([facility]) Air Body mass index (BMI) [Ratio] 33.1 kg/m2 33.1 k g/m2 [facility] ([facility]) Body weight 215.00 [lb_av] 215.00 [lb_av] MEDEN T ([facility]) Body weight 211.00 [lb_av] 211.00 [lb_av] [facility] Systolic blood pressure 140 mm[Hg] 140 mm[Hg] [facility] Diastolic blood pressure 62 mm[Hg] 62 mm[Hg] [facility] Heart rate 86 /min 86 /min [facility] Body height 172.7 cm 172.7 cm [facility] Body weight 95.255 kg 95.255 kg [facility] Body mass index (BMI) [Ratio] 31.93 kg/m2 31.93 kg/m2 [facility] Oxygen saturation in Arterial blood by Pulse oximetry 96 % 96 % [facility] Body height 67.75 [in_i] 67.75 [in_i] MEDENT ([facility]) 5'7.75" Systolic blood pressure 116 mm[Hg] 116 mm[Hg] M EDENT ([facility]) RT Arm Diastolic blood pressure 66 mm[Hg] 66 mm[Hg] MEDENT ([facility]) RT Arm Heart rate 68 /min 68 /min [facility] ([facility]) Body weight 214.50 [lb_av] 214.50 [lb_av] MEDEN T ([facility]) Oxygen saturation in Arterial blood by Pulse oximetry --post exerci se 97 % 97 % [facility] ([facility]) RM Air Body mass index (BMI) [Ratio] 32.9 kg/m2 32.9 k g/m2 MEDENT ([facility]) Body weight 209 [lb_av] 209 [lb_av] eCW1 ([facility]) Body weight kg eCW1 ([facility]) Body height 68 [in_i] 68 [in_i] eCW1 ([facility]) Body mass index (BMI) [Ratio] 31.77 kg/m2 31.77 kg/m2 W1 ([facility]) Heart rate 72 /min 72 /min eCW1 ([facility]) Respiratory rate 18 /min 18 /min eCW1 ([facility]) Body temperature 95.4 [degF] 95.4 [degF] eCW1 ( [facility]) Body weight 211.00 [lb_av] 211.00 [lb_av] MEDEN T ([facility]) Body weight 209 [lb_av] 209 [lb_av] eCW1 ([facility]) Body height 68 [in_i] 68 [in_i] eCW1 ([facility]) Body mass index (BMI) [Ratio] 31.77 kg/m2 31.77 kg/m2 W1 ([facility]) Heart rate 75 /min 75 /min eCW1 ([facility]) Respiratory rate 16 /min 16 /min eCW1 ([facility]) Body temperature 95.8 [degF] 95.8 [degF] eCW1 ( [facility]) Systolic blood pressure 125 mm[Hg] 125 mm[Hg] e CW1 ([facility]) Diastolic blood pressure 63 mm[Hg] 63 mm[Hg] eCW1 ([facility]) Body weight 211.00 [lb_av] 211.00 [lb_av] MEDEN T ([facility]) Diastolic blood pressure 70 mm[Hg] 70 mm[Hg] eCW1 ([facility]) Body weight 209 [lb_av] 209 [lb_av] eCW1 ([facility]) Body temperature 97.0 [degF] 97.0 [degF] eCW1 ( [facility]) Body weight kg eCW1 ([facility]) Systolic blood pressure 134 mm[Hg] 134 mm[Hg] e CW1 ([facility]) Body height 68 [in_i] 68 [in_i] eCW1 ([facility]) Body mass index (BMI) [Ratio] 31.77 kg/m2 31.77 kg/m2 eCW1 ([facility]) Heart rate 72 /min 72 /min eCW1 ([facility]) Respiratory rate 18 /min 18 /min eCW1 ([facility]) Body height 67.75 [in_i] 67.75 [in_i] MEDENT ([facility]) 5'7.75" Body weight 215.00 [lb_av] 215.00 [lb_av] MEDEN T ([facility]) Body mass index (BMI) [Ratio] 32.9 kg/m2 32.9 k g/m2 MEDENT ([facility]) Body weight 209 [lb_av] 209 [lb_av] eCW1 ([facility]) Body height 68 [in_i] 68 [in_i] eCW1 ([facility]) Body mass index (BMI) [Ratio] 31.77 kg/m2 31.77 kg/m2 eCW1 ([facility]) Heart rate 73 /min 73 /min eCW1 ([facility]) Respiratory rate 18 /min 18 /min eCW1 ([facility]) Body temperature 96.5 [degF] 96.5 [degF] eCW1 ( [facility]) Systolic blood pressure 124 mm[Hg] 124 mm[Hg] e CW1 ([facility]) Diastolic blood pressure 77 mm[Hg] 77 mm[Hg] eCW1 ([facility]) Body weight 209 [lb_av] 209 [lb_av] eCW1 ([facility]) Body height 68 [in_i] 68 [in_i] eCW1 ([facility]) Body mass index (BMI) [Ratio] 31.77 kg/m2 31.77 kg/m2 eCW1 ([facility]) Heart rate 65 /min 65 /min eCW1 ([facility]) Respiratory rate 18 /min 18 /min eCW1 ([facility]) Body temperature 96.3 [degF] 96.3 [degF] eCW1 ( [facility]) Systolic blood pressure 107 mm[Hg] 107 mm[Hg] e CW1 ([facility]) Diastolic blood pressure 65 mm[Hg] 65 mm[Hg] eCW1 ([facility]) Body weight 209 [lb_av] 209 [lb_av] eCW1 ([facility]) Body height 68 [in_i] 68 [in_i] eCW1 ([facility]) Body mass index (BMI) [Ratio] 31.77 kg/m2 31.77 kg/m2 eCW1 ([facility]) Heart rate 81 /min 81 /min eCW1 ([facility]) Respiratory rate 18 /min 18 /min eCW1 ([facility]) Body temperature 97.5 [degF] 97.5 [degF] eCW1 ( [facility]) Systolic blood pressure 138 mm[Hg] 138 mm[Hg] e CW1 ([facility]) Diastolic blood pressure 63 mm[Hg] 63 mm[Hg] eCW1 ([facility]) Body weight 212.12 [lb_av] 212.12 [lb_av] MEDEN T ([facility]) Body mass index (BMI) [Ratio] 32.5 kg/m2 32.5 k g/m2 MEDENT ([facility]) Systolic blood pressure 126 mm[Hg] 126 mm[Hg] M EDENT ([facility]) RT Arm Diastolic blood pressure 64 mm[Hg] 64 mm[Hg] MEDENT ([facility]) RT Arm Heart rate 68 /min 68 /min MEDENT ([facility]) Body height 67.75 [in_i] 67.75 [in_i] MEDENT ([facility]) 5'7.75" Body weight 213.00 [lb_av] 213.00 [lb_av] MEDEN T ([facility]) Body mass index (BMI) [Ratio] 32.6 kg/m2 32.6 k g/m2 [facility] Body height 67.75 [in_i] 67.75 [in_i] MEDENT ([facility]) 5'7.75" Systolic blood pressure 140 mm[Hg] 140 mm[Hg] M [facility] ([facility]) Diastolic blood pressure 80 mm[Hg] 80 mm[Hg] [facility] ([facility]) Heart rate 80 /min 80 /min [facility] ([facility]) Oxygen saturation in Arterial blood by Pulse oximetry 94 % 94 % [facility] ([facility]) Room Air Body height 68 [in_i] 68 [in_i] [facility] ([facility]) 5'8" Body weight 220.00 [lb_av] 220.00 [lb_av] MEDEN T ([facility]) Body mass index (BMI) [Ratio] 33.4 kg/m2 33.4 k g/m2 [facility] ([facility]) Body weight 99.792 kg 99.792 kg [facility] ([facility]) ID Date Data Source [id number] 07/30/2020 08:19:14 AM [facility] Name Value Range Interpretation Code Description Data Source(s) WEIGHT RECORDED 213 lb 213 lb [facility] Body height Measured 67.99 in 67.99 in [facility] Patient Treatment Plan of Care Planned Activity Planned Date Details Description Data Source (s) Potassium Chloride 10 MEQ Extended Release Oral Capsul e 06/07/2021 12:00:00 AM EDT [facility] Ondansetron 4 MG Oral Tablet 04/20/2021 12:00:00 AM EDT [facility] Rosuvastatin calcium 20 MG Oral Tablet 01/31/2021 12:00:00 AM EDT [facility] Cyclosporine 0.5 MG/ML Ophthalmic Suspension [Restasis ] 11/09/2020 12:00:00 AM EST [facility] (Anatoliy Tavarez MD [facility]) Cyclosporine 0.5 MG/ML Ophthalmic Suspension [Restasis ] 09/10/2019 12:00:00 AM EST LESIA (Anatoliy Tavarez MD [facility]) Sucralfate 100 MG/ML Oral Suspension [facility] Rosuvastatin calcium 10 MG Oral Tablet [facility]
[2021-08-25] MEDS ORDERED: MAGICMW MT (17:50)
[2021-08-25] MEDS ORDERED: HOME MED LIST COMPLETE! XX SCH (17:55)
--- NOTE | 2021-08-25 19:06 | ECGEPIP ---
[facility] - ED Test Date: 2021-08-25 Pat Name: MILAN ABDI Department: Room: - Gender: Male [place]: : 1935 Requested By: ANNI Alcocer Order Number: [id number] Reading MD: Elsa Ríos Measurements Intervals [place] Rate: 115 P: VA: QRS: 89 QRSD: 156 T: 27 QT: 366 QTc: 506 Interpretive Statements Atrial fibrillation with rapid ventricular response NSTTW abnormalities Right bundle branch block increased rate 04/22/21 Electronically Signed on 08-25-2021 19:05:28 EDT by Elsa Ríos
[2021-08-25] MEDS ORDERED: DIGOXIN INJ 0.5 MG/2 ML AMP (J1160) IV ONE (19:15)
--- NOTE | 2021-08-25 19:23 | HPEPDOC ---
General Date of Admission 08/25/21 Date of Service: Aug 25, 2021 Chief Complaint The patient is a 86-year-old male admitted with a reason for visit of Diff Breathing. History of Present Illness 86 Yea r old male with PMH of diastolic CHF, DAVIDE, COPD with chronic hypoxic respiratory failure Afib, chronic ITP, IgG [place] gammopathy , recently found a third pulmonary nodule underwent PET scan on 08/22/21 presented to the ED with shortness of breath, cough and increased phlegm for 2 days. Patient reports that he had to stop his lasix for 2 days prior to PET scan and had to take increased water as per PET scan instructions. A day after the PET scan he started feeling SOB which continued to worsen so came to the ED today. He also complained of poor appetite and nausea for the last 2 days and reports has not been able to eat much. In the ED he was noted to be in Afib with RVR. He was found to be hypoxic needing 4 liters of oxygen. In CT chest lung dexter show scattered bilateral interstitial and early airspace opacities. Findings most consistent with pulmonary edema secondary to CHF. He was admitted for CHF exacerbation and hypoxia. Home Medications Scheduled Cyclosporine (Restasis) 0.05 % Emu, 1 DROP OU BID, (Reported) Fluticasone Propion/Salmeterol (Advair Hfa 115-21 Mcg Inhaler) 12 Gm Hfa.aer.ad, 2 PUFF INH BID, (Reported) Furosemide (Furosemide) 40 Mg Tablet, 40 MG PO BID, (Reported) Gabapentin (Gabapentin) 600 Mg Tab, 600 MG PO QAM, (Reported) Gabapentin (Gabapentin) 600 Mg Tab, 1,200 MG PO QHS, (Reported) Metoprolol Succinate (Metoprolol Succinate) 50 Mg Tab.er.24h, 50 MG PO DAILY, (Reported) Oxycodone HCl/Acetaminophen (Oxycodone-Acetaminophen 5-325) 1 Each Tablet, 1 TAB PO Q4H for pain Rosuvastatin Calcium (Crestor) 20 Mg Tablet, 20 MG PO QHS, (Reported) Spironolactone (Spironolactone) 25 Mg Tablet, 25 MG PO BID, (Reported) Warfarin Sodium (Warfarin Sodium) 3 Mg Tablet, 6 MG PO DAILY, (Reported) Scheduled PRN Acetaminophen (Acetaminophen) 500 Mg Tablet, 1,000 MG PO Q6H PRN for PAIN LEVEL 1-4, (Reported) Albuterol Sulf (Albuterol Sulfate) 2.5 Mg/3 Ml Vial.neb, 2.5 MG NEB Q4H PRN for WHEEZING, (Reported) Albuterol Sulfate (Ventolin Hfa) 18 Gm Hfa.aer.ad, 1 PUFF INH QID PRN for WHEEZING, (Reported) Esomeprazole Magnesium (Nexium) 40 Mg Cap, 40 MG PO DAILY PRN for HEARTBURN, (Reported) Guaifenesin (Mucinex) 600 Mg Tab.er.12h, 600 MG PO BID PRN for COUGH, (Reported) Magic Mouthwash (First-Mouthwash Blm) 1 Ea Susp, 10 ML MT QID PRN for MUCOSITIS, (Reported) Nitroglycerin (Nitrostat) 0.4 Mg Subl, 0.4 MG SL ASDIRECTED PRN for CHEST PAIN, (Reported) Sodium Chloride (Saline Nasal Ramah) 44 Ml Ramah, 1 SPRAY NARES BID PRN for CONGESTION, (Reported) Allergies Coded Allergies: No Known Allergies (Verified , 07/15/17) Past Medical History Medical History IgG kappa monoclonal gammopathy Chronic ITP diagnosed in 2012. Plt count hovering between 50 K and 70K IgG kappa monoclonal gammopathy. Very slowly rising Recent CT right lung nodule of unknown age. CHF with preserved EF Mild pulmonary hypertension COPD Atrial fibrillation on warfarin CAD status post angioplasty and stent placement in 2001, CABG in 2007 Dyslipidemia hypertension OA BPH GERD DAVIDE Chronic sinusitis Cervical radiculopathy/DJD. History of basal cell carcinoma affecting the skin on the nose breast and stomach status post Mohs surgery Prostate cancer status post radiation History of MSSA, oxacillin sensitive bacteremia. 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 Breast cancer Coronary artery disease Social History * Smoker: former Smoker Alcohol: Denies Drugs: denies A-FIB/CHADSVASC A-FIB History Current/History of A-Fib/PAF?: Yes Current PO Anticoag Therapy: Yes Review of Systems Constitutional: Denies: Chills, Fever, Night Sweats Eyes: Denies: Pain, Vision change ENT: Denies: Head Aches, Ear Pain, Dysphagia Skin: Denies: Rash, Lesions, Breakdown Pulmonary: Reports: Dyspnea, Cough Cardiovascular: Reports: Palpitations, Edema Gastrointestinal: Reports: Nausea; Denies: Vomiting, Abdominal Pain, Diarrhea, Constipation Genitourinary: Denies: Dysuria, Frequency, Incontinence, Retention Hematologic: Reports: Petecchia, Purpura Musculoskeletal: Reports: Back Pain, Joint Pain Neurological: Denies: Weakness, Numbness, Change in speech, Confusion Physical Examination General Exam: Positive: Alert, Cooperative, No Acute Distress Eye Exam: Positive: PERRLA, Conjunctiva & lids normal, EOMI; Negative: Sclera icteric ENT Exam: Positive: Atraumatic, Mucous membr. moist/pink, Pharynx Normal Neck Exam: Positive: Supple, JVD; Negative: thyromegaly Chest Exam: Positive: Rales, Wheezing, Other (bilateral crackles) Heart Exam: Positive: Tachycardic, Irregular Rhythm, Normal S1, Normal S2 Telemetry: Positive: Atrial fibrillation Abdomen Exam: Positive: Normal bowel sounds, Soft, Hepatospenomegaly; Negative: Tenderness Extremity Exam: Positive: Edema, Normal pulses; Negative: Clubbing, Cyanosis Psych Exam: Positive: Memory Intact, Oriented x 3 Vital Signs Vital Signs Date Time Temp Pulse Resp B/P (MAP) Pulse Ox O2 Delivery O2 Flow Rate FiO2 08/25/21 15:14 120 28 158/98 (118) 90 08/25/21 14:30 Nasal Cannula 4.0 08/25/21 10:14 99.5 Laboratory Data Labs 24H Laboratory Tests 2 08/25/21 10:23: Immature Granulocyte % (Auto) , Neutrophils (%) (Auto) , Lymphocytes (%) (Auto) , Monocytes (%) (Auto) , Eosinophils (%) (Auto) , Basophils (%) (Auto) , Neutrophils # (Auto) , Lymphocytes # (Auto) , Monocytes # (Auto) , Eosinophils # (Auto) , Basophils # (Auto) , Nucleated Red Blood Cells % (auto) 0.0, Neutrophils 81H, Band Neutrophils 4, Lymphocytes (Manual) 12L, Monocytes (Manual) 3, Hypochromasia 1+, Platelet Estimate MARKED DECREASE, Immature Platelet Fraction 13.3H, Blood Gas Bicarbonate Standard 21.2, Venous Blood pH 7.296L, Venous Blood Partial Pressure CO2 48.9, Venous Blood Partial Pressure O2 42.8, Venous Blood Total Carbon Dioxide 24.8, Venous Blood HCO3 23.3, Venous Blood Oxygen Saturation 75.4, Venous Blood Base Excess -3.4L, Anion Gap 7L, Glomerular Filtration Rate > 60.0, Lactic Acid Level 2.3*H, Calcium Level 9.3, Total Bilirubin 1.2H, Direct Bilirubin 0.5H, Aspartate Amino Transf (AST/SGOT) 24, Alanine Aminotransferase (ALT/SGPT) 21, Alkaline Phosphatase 93, Total Creatine Kinase 57, Creatine Kinase MB < 1.0, Creatine Kinase MB Relative Index 1.75, Troponin I < 0.02, VL-Wgo-N-Type Natriuretic Peptide 1906H, Total Protein 7.8, Albumin 2.4L, Albumin/Globulin Ratio 0.4, Thyroid Stimulating Hormone (TSH) 1.790 CBC/BMP Laboratory Tests 08/25/21 10:23 Microbiology Microbiology 08/25/21 Blood Culture, Received Pending 08/25/21 Respiratory Virus Panel (PCR) ([facility]) - Final, Complete 08/25/21 Blood Culture, Received Pending Assessment/Plan 86 Yea r old male with PMH of diastolic CHF, DAVIDE, COPD with chronic hypoxic respiratory failure Afib, chronic ITP, IgG [place] gammopathy , recently found a third pulmonary nodule underwent PET scan on 08/22/21 presented to the ED with shortness of breath, cough and increased phlegm for 2 days. Patient reports that he had to stop his lasix for 2 days prior to PET scan and had to take increased water as per PET scan instructions. A day after the PET scan he started feeling SOB which continued to worsen so came to the ED today. In the ED he was noted to be in Afib with RVR. He was found to be hypoxic needing 4 liters of oxygen. In CT chest lung dexter show scattered bilateral interstitial and early airspace opacities. Findings most consistent with pulmonary edema secondary to CHF. He was admitted for CHF exacerbation and hypoxia. Diastolic CHF exacerbation will get new echo Lasix 40 q 8 hours. Afib with RVR will continue metoprolol and coumadin will give Digoxin if rate remains uncontrolled. COPD continue advair, levalbuterol. 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 HLD statin Plan / VTE VTE Prophylaxis Ordered?: Yes Batsheva Jarvis MD Aug 25, 2021 16:11
[2021-08-25] MEDS: LEVALBUTEROL 1.25 MG/0.5 ML CONCENTRATE NEB INH SCH (20:00)
[2021-08-25] MEDS: ADVAIR HFA 115/21MCG INHALER INH SCH (20:44)
[2021-08-25 21:04] LABS: INR 2.79; PROTHROMBIN TIME 29.8 SECONDS (12.7-14.5)
[2021-08-25 21:06] LABS: PARTIAL THROMBOPLASTIN TIME 59.7 SECONDS (25.9-37.0)
[2021-08-25 21:30] VITALS: BP 158/65
[2021-08-25] MEDS: ROSUVASTATIN 10 MG TAB (CRESTOR) PO SCH (21:33)
[2021-08-25] MEDS: SPIRONOLACTONE 25 MG TAB PO SCH (21:34)
[2021-08-25 21:41] VITALS: BP 133/55
[2021-08-25] MEDS: FUROSEMIDE 40MG/4ML VIAL (J1940) IV SCH (23:11)
[2021-08-25 23:38] LABS: AMORPHOUS SEDIMENT SMALL (NEGATIVE); APPEARANCE, URINE CLOUDY (CLEAR); BACTERIA, URINE AUTO NEGATIVE (NEGATIVE); BILIRUBIN, URINE AUTO NEGATIVE (NEGATIVE); BLOOD, URINE BLOOD 1+ (NEGATIVE); COLOR, URINE AMBER (YELLOW); GLUCOSE, URINE (UA) AUTO NEGATIVE (NEGATIVE); GRANULAR CAST, URINE AUTO 4 /LPF; KETONE, URINE AUTO NEGATIVE (NEGATIVE); LEUKOCYTE ESTERASE, URINE AUTO NEGATIVE (NEGATIVE); MUCUS, URINE SMALL (NEGATIVE); NITRITE, URINE AUTO NEGATIVE (NEGATIVE); PROTEIN, URINE AUTO 3+ mg/dL (NEGATIVE); RBC, URINE AUTO 11 /HPF (0-3); SPECIFIC GRAVITY URINE AUTO 1.017 (1.002-1.035); SQUAMOUS EPITHELIAL CELL UR AU 2 /HPF (0-6); WBC, URINE AUTO 8 /HPF (0-3)
[2021-08-26] VITALS: BP 133/69
[2021-08-26] MEDS: LEVALBUTEROL 1.25 MG/0.5 ML CONCENTRATE NEB INH SCH ×4 (02:00→20:00)
[2021-08-26] MEDS ORDERED: KETOROLAC 30 MG/ML 1ML VIAL IV ONE (03:10)
[2021-08-26] MEDS ORDERED: MOM 30ML SUSPENSION UDC PO PRN (03:15)
[2021-08-26] MEDS ORDERED: MAALOX 30 ML SUSP *UDC PO PRN (03:15)
[2021-08-26 04:00] VITALS: BP 163/67
[2021-08-26 06:11] LABS: HEMATOCRIT 32.5 % (42.0-52.0); HEMOGLOBIN 10.2 g/dl (13.5-17.5); MEAN CORPUSCULAR HEMOGLOBIN 31.7 pg (27.0-33.0); MEAN CORPUSCULAR HGB CONC 31.4 g/dl (32.0-36.5); MEAN CORPUSCULAR VOLUME 100.9 fl (80.0-96.0); RED BLOOD COUNT 3.22 10^6/uL (4.30-6.10)
[2021-08-26 06:13] LABS: PLATELET COUNT, AUTOMATED 42 10^3/uL (150-450)
[2021-08-26 06:28] LABS: BLOOD UREA NITROGEN 22 MG/DL (7-18); CALCIUM LEVEL 9.1 MG/DL (8.8-10.2); CARBON DIOXIDE LEVEL 24 MEQ/L (21-32); CHLORIDE LEVEL 108 MEQ/L (98-107); CREATININE FOR GFR 0.97 MG/DL (0.70-1.30); GLOMERULAR FILTRATION RATE > 60.0 (>35); GLUCOSE, FASTING 111 MG/DL (70-100); MAGNESIUM LEVEL 1.6 MG/DL (1.8-2.4); POTASSIUM SERUM 4.2 MEQ/L (3.5-5.1); SODIUM LEVEL 140 MEQ/L (136-145)
[2021-08-26 06:41] LABS: LYMPHOCYTES 22 % (16-44); METAMYELOCYTES 10 % (0-0); MONOCYTES 4 % (0-5); NEUTROPHILS 42 % (28-66); PLATELET ESTIMATE DECREASED (NORMAL)
[2021-08-26] MEDS: ADVAIR HFA 115/21MCG INHALER INH SCH ×2 (07:40→20:05)
[2021-08-26 08:00] VITALS: BP 139/63
[2021-08-26] MEDS ORDERED: DIGOXIN INJ 0.5 MG/2 ML AMP (J1160) IV ONE (08:30)
[2021-08-26] MEDS ORDERED: MAG SULF 1GM/100ML (MAG RUN) 1 GM in IV 1 EA IV ONE (08:30)
[2021-08-26] MEDS: METOPROLOL SUCC (TopROL XL) 50MG **XL** TAB PO SCH (08:52)
[2021-08-26] MEDS: FUROSEMIDE 40MG/4ML VIAL (J1940) IV SCH (08:52)
[2021-08-26] MEDS: ACETAMINOPHEN TAB 650MG DOSE (2X325MG) PO PRN (08:52)
[2021-08-26] MEDS: DOCUSATE SODIUM 100MG CAPSULE PO SCH ×2 (08:52→22:20)
[2021-08-26] MEDS ORDERED: WARFARIN SOD 3MG TAB PO SCH ×2 (09:00→17:00)
[2021-08-26] MEDS ORDERED: PANTOPRAZOLE 40MG TAB (PROTONIX) PO SCH (09:00)
[2021-08-26] MEDS ORDERED: MORPHINE 2 MG/ML 1ML VIAL (J2270) IV ONE (09:05)
[2021-08-26] MEDS: SPIRONOLACTONE 25 MG TAB PO SCH ×2 (09:07→17:13)
[2021-08-26] MEDS ORDERED: oxyCODONE 5MG TAB PO PRN (09:10)
[2021-08-26] MEDS: DOXYCYCLINE HYCLATE 100 MG in D5W MINI-BAG PLUS 100 ML IV SCH ×2 (10:33→22:19)
[2021-08-26] MEDS: LIDOCAINE 5% (LIDODERM) PATCH TD SCH (10:33)
[2021-08-26] MEDS: oxyCODONE 5MG TAB PO PRN ×2 (10:33→15:18)
[2021-08-26] MEDS: methylPREDNISolone 40MG 1ML VIAL IV SCH ×3 (10:34→22:21)
[2021-08-26 12:00] VITALS: BP 117/58
--- NOTE | 2021-08-26 12:37 | REP ---
INDICATION: abdominal pain. COMPARISON: 04/20/2021 a contrast-enhanced exam and the latest prior TECHNIQUE: Standard helical technique without intravenous or oral bowel preparatory contrast administration FINDINGS: Respiratory motion artifact obscures the lung bases. A new patchy and nodular density has developed in the right lower lobe. There are no pleural or pericardial effusions. Allowing for the differences in technique, the liver, gallbladder, spleen, pancreas, adrenal glands, and left kidney are unchanged. Note is again made of cholelithiasis and a nodular surface to the liver status quo. There is unchanged left perinephric stranding. There is no significant change in appearance of the bowel loops or the mesenteries. There is no evidence of free fluid or free air. There is no significant change in appearance of the abdominal aorta or para-regions. Bone window technique throughout the exam shows multiple spinal compression deformity status quo. IMPRESSION: 1. Allowing for the differences in the technical factors between today's examination and the examination of 04/20/2021 there does not appear to be a significant change. Possible cirrhotic features to the liver status quo. Cholelithiasis status quo. Chronic osseous changes status quo. 2. There are changes in the right lung base as described above for which clinical correlation and follow-up is suggested. Pneumonia cannot be ruled out. <Electronically signed by Mihir Hernandez > 08/26/21 [id number]
[2021-08-26] MEDS: cefTRIAXone SOD 2 GM in D5W MINI-BAG PLUS 50 ML IV SCH (13:46)
[2021-08-26] MEDS: GABAPENTIN 300 MG CAP PO SCH ×2 (13:49→22:20)
--- NOTE | 2021-08-26 15:58 | IPNPDOC ---
Subjective Date Seen The patient was seen on 08/26/21. Subjective Chief Complaint/HPI Patient in moderate distress this am due to severe back pain . unable to lay straight, rolling in bed from side to side. Also having a rattling cough and not able to bring up much phlegm. Continues to have dyspnea . He was in afib with RVR. Morphine was given to control his back pain and after that his pulse rate became better controlled. Spoke with daughter Kely an updated her. Patient was asking about his PET scan result which is positive . Daughter Kely wanted to be present when i would go over the results of the PET scan. I d irected her to Nursing mixing supervisor to see if she would be allowed to come in this afternoon. Objective Physical Examination General Exam: Positive: Alert, Cooperative, Moderate Distress (due to back pain) Eye Exam: Positive: PERRLA, Conjunctiva & lids normal, EOMI; Negative: Sclera icteric ENT Exam: Positive: Atraumatic, Mucous membr. moist/pink, Pharynx Normal Neck Exam: Positive: Supple, +2 carotid pulse wo bruit; Negative: JVD, thyromegaly Chest Exam: Positive: Rales, Wheezing, Diminished, Other (use of accessory muscles, crackles at the bases. , conducted sounds from the throat. ) Heart Exam: Positive: Tachycardic, Irregular Rhythm, Normal S1, Normal S2; Negative: Gallops, Murmurs, Rubs Telemetry: Positive: Atrial fibrillation Abdomen Exam: Positive: Normal bowel sounds, Soft, Tenderness (in all the quadrants. ) Extremity Exam: Positive: Edema, Normal pulses; Negative: Clubbing, Cyanosis Neuro Exam: Positive: Normal Speech, Strength at 5/5 X4 ext, Normal Tone Psych Exam: Positive: Memory Intact, Oriented x 3 Assessment /Plan Assessment 86 Year old male with PMH of diastolic CHF, DAVIDE, COPD with chronic hypoxic respiratory failure Afib, chronic ITP, IgG [place] gammopathy , recently found a third pulmonary nodule underwent PET scan on 08/22/21 presented to the ED with shortness of breath, cough and increased phlegm for 2 days. Patient reports that he had to stop his lasix for 2 days prior to PET scan and had to take increased water as per PET scan instructions. A day after the PET scan he started feeling SOB which continued to worsen so came to the ED today. In the ED he was noted to be in Afib with RVR. He was found to be hypoxic needing 4 liters of oxygen. In CT chest lung dexter show scattered bilateral interstitial and early airspace opacities. Findings most consistent with pulmonary edema secondary to CHF. He was admitted for CHF exacerbation and hypoxia. Later on procalcitonin came back high so was empirically started on antibiotics. CT abdomen at this time done for abdominal pain showed A new patchy and nodular density has developed in the right lower lobe. Diastolic CHF exacerbation will get new echo Received several doses of lasix will hold off further today Right lower lobe pneumonia Procal elevated to 0.75 blood cultures no growth till date. will add ceftriaxone and doxycycline. Afib with RVR will continue metoprolol and coumadin received 2 doses of digoxin. rate now controlled. COPD with exacerbation continue advair, levalbuterol and methyl prednisone Severe back pain has multilevel vertebral copression will continue on oxycodone. Chronic ITP platelet at 45 Cirrhosis of Liver As per CT abd and pelvis this is likely contributing to his dropping platelet count. 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 PET scan shows 2 hypermetabolic nodules. HLD statin Plan/VTE VTE Prophylaxis Ordered?: Yes VS, I&O, 24H, Fishbone Vital Signs/I&O Vital Signs Date Time Temp Pulse Resp B/P (MAP) Pulse Ox O2 Delivery O2 Flow Rate FiO2 08/26/21 15:18 18 08/26/21 12:00 6.0 08/26/21 12:00 96.3 68 117/58 (77) 96 Nasal Cannula I&O- Last 24 Hours up to 6 AM 08/26/21 07:00 Intake Total 60 ml Output Total 1300 ml Balance -1240 ml Laboratory Data 24H LABS Laboratory Tests 2 08/25/21 18:34: Lactic Acid Followup at 4 Hours 4.2*H 08/25/21 20:36: Prothrombin Time 29.8H, Prothromb Time International Ratio 2.79, Activated Partial Thromboplast Time 59.7H 08/25/21 22:59: Lactic Acid Level 2.0, Procalcitonin 0.75 08/25/21 23:21: Urine Color MADELYN, Urine Appearance CLOUDYH, Urine pH 5.0, Urine Specific G ravity 1.017, Urine Protein 3+H, Urine Glucose (Auto)(UA) NEGATIVE, Urine Ketones (Auto) NEGATIVE, Urine Blood 1+H, Urine Nitrite NEGATIVE, Urine Bilirubin NEGATIVE, Urine Urobilinogen 2.0H, Urine Leukocyte Esterase (Auto) NEGATIVE, Urine WBC (Auto) 8H, Urine RBC (Auto) 11H, Urine Hyaline Casts (Auto) 64, Urine Bacteria (Auto) NEGATIVE, Urine Squamous Epithelial Cells 2, Urine Amorphous Sediment (Auto) SMALLH, Urine Granular Casts (Auto) 4, Urine Mucus (Auto) SMALL, Urine Sperm (Auto) 08/26/21 05:39: Neutrophils (%) (Auto) , Nucleated Red Blood Cells % (auto) 0.0, Neutrophils 42, Band Neutrophils 22H, Lymphocytes (Manual) 22, Monocytes (Manual) 4, Metamyelocytes 10H, Red Blood Cell Morphology NORMAL, Platelet Estimate DECREASED, Anion Gap 8, Glomerular Filtration Rate > 60.0, Calcium Level 9.1, Magnesium Level 1.6L CBC/BMP Laboratory Tests 08/26/21 05:39 Microbiology Microbiology 08/25/21 Urine Culture, Received Pending 08/25/21 Blood Culture - Preliminary, Resulted No growth after 24 hours . All specim... 08/25/21 Respiratory Virus Panel (PCR) ([facility]AN[facility]) - Final, Complete 08/25/21 Blood Culture - Preliminary, Resulted No growth after 24 hours . All specim... Batsheva Jarvis MD Aug 26, 2021 15:58
[2021-08-26 16:00] VITALS: BP 118/56
[2021-08-26 20:00] VITALS: BP 126/67
[2021-08-26] MEDS: **NOTE PATIENT COMMENT** MISC XX SCH (21:00)
[2021-08-26] MEDS: ROSUVASTATIN 10 MG TAB (CRESTOR) PO SCH (21:00)
[2021-08-26] MEDS ORDERED: NALOXONE INJ 0.4MG/1ML VIAL (J2310 PER 1MG) IV STA (21:47)
[2021-08-26 22:08] LABS: HEMATOCRIT 34.6 % (42.0-52.0); HEMOGLOBIN 10.7 g/dl (13.5-17.5); MEAN CORPUSCULAR HEMOGLOBIN 31.6 pg (27.0-33.0); MEAN CORPUSCULAR HGB CONC 30.9 g/dl (32.0-36.5); MEAN CORPUSCULAR VOLUME 102.1 fl (80.0-96.0); RED BLOOD COUNT 3.39 10^6/uL (4.30-6.10); WHITE BLOOD COUNT 3.2 10^3/uL (4.0-10.0)
[2021-08-26 22:09] LABS: PLATELET COUNT, AUTOMATED 46 10^3/uL (150-450)
[2021-08-26] MEDS: PANTOPRAZOLE 40MG VIAL (C9113 PER 1) IV SCH (22:19)
[2021-08-26 22:38] LABS: BLOOD UREA NITROGEN 33 MG/DL (7-18); CALCIUM LEVEL 9.4 MG/DL (8.8-10.2); CARBON DIOXIDE LEVEL 29 MEQ/L (21-32); CHLORIDE LEVEL 107 MEQ/L (98-107); CK-MB VALUE MASS 1.3 NG/ML (<3.6); CPK CREATINE PHOSPHOKINASE 49 U/L (39-308); CREATININE FOR GFR 1.16 MG/DL (0.70-1.30); GLOMERULAR FILTRATION RATE > 60.0 (>35); GLUCOSE, FASTING 143 MG/DL (70-100); MAGNESIUM LEVEL 2.2 MG/DL (1.8-2.4); MB/CK RELATIVE INDEX 2.65 (< OR =4); POTASSIUM SERUM 4.6 MEQ/L (3.5-5.1); SODIUM LEVEL 140 MEQ/L (136-145); TROPONIN I 0.02 NG/ML (< 0.10)
[2021-08-27] VITALS: BP 119/57
[2021-08-27] MEDS ORDERED: OLANZapine INTRAMUSCULAR 10MG VIAL IM ONE (01:50)
[2021-08-27] MEDS: LEVALBUTEROL 1.25 MG/0.5 ML CONCENTRATE NEB INH SCH ×4 (01:58→19:48)
[2021-08-27] MEDS: ACETAMINOPHEN TAB 650MG DOSE (2X325MG) PO PRN ×2 (02:30→20:32)
[2021-08-27 04:00] VITALS: BP 130/60
[2021-08-27] MEDS: methylPREDNISolone 40MG 1ML VIAL IV SCH ×3 (04:37→20:32)
[2021-08-27 07:24] LABS: INR 2.6; PROTHROMBIN TIME 28.2 SECONDS (12.7-14.5)
[2021-08-27 07:30] LABS: HEMATOCRIT 35.3 % (42.0-52.0); HEMOGLOBIN 10.8 g/dl (13.5-17.5); MEAN CORPUSCULAR HEMOGLOBIN 31.4 pg (27.0-33.0); MEAN CORPUSCULAR HGB CONC 30.6 g/dl (32.0-36.5); MEAN CORPUSCULAR VOLUME 102.6 fl (80.0-96.0); RED BLOOD COUNT 3.44 10^6/uL (4.30-6.10); WHITE BLOOD COUNT 3.2 10^3/uL (4.0-10.0)
[2021-08-27 07:31] LABS: PLATELET COUNT, AUTOMATED 45 10^3/uL (150-450)
[2021-08-27 07:39] LABS: BLOOD UREA NITROGEN 42 MG/DL (7-18); CALCIUM LEVEL 9.9 MG/DL (8.8-10.2); CARBON DIOXIDE LEVEL 29 MEQ/L (21-32); CHLORIDE LEVEL 105 MEQ/L (98-107); CREATININE FOR GFR 1.21 MG/DL (0.70-1.30); GLOMERULAR FILTRATION RATE > 60.0 (>35); GLUCOSE, FASTING 153 MG/DL (70-100); MAGNESIUM LEVEL 2.4 MG/DL (1.8-2.4); POTASSIUM SERUM 4.4 MEQ/L (3.5-5.1); SODIUM LEVEL 139 MEQ/L (136-145)
[2021-08-27 08:00] VITALS: BP 120/66
[2021-08-27] MEDS: ADVAIR HFA 115/21MCG INHALER INH SCH ×2 (08:09→19:50)
[2021-08-27 08:32] LABS: ANISOCYTOSIS 1+; ATYPICAL LYMPH 3 % (0-5); HYPOCHROMASIA 1+; LYMPHOCYTES 20 % (16-44); MONOCYTES 3 % (0-5); NEUTROPHILS 52 % (28-66); PLATELET ESTIMATE MARKED DECREASE (NORMAL)
[2021-08-27] MEDS ORDERED: FUROSEMIDE 40MG/4ML VIAL (J1940) IV SCH (09:00)
[2021-08-27] MEDS ORDERED: oxyCODONE 5MG TAB PO PRN (09:00)
[2021-08-27] MEDS: LIDOCAINE 5% (LIDODERM) PATCH TD SCH (09:23)
[2021-08-27] MEDS: DOCUSATE SODIUM 100MG CAPSULE PO SCH ×2 (09:24→20:40)
[2021-08-27] MEDS: GABAPENTIN 300 MG CAP PO SCH ×2 (09:26→20:29)
[2021-08-27] MEDS: PANTOPRAZOLE 40MG VIAL (C9113 PER 1) IV SCH ×2 (09:26→20:27)
[2021-08-27] MEDS: METOPROLOL SUCC (TopROL XL) 50MG **XL** TAB PO SCH (09:26)
[2021-08-27] MEDS: DOXYCYCLINE HYCLATE 100 MG in D5W MINI-BAG PLUS 100 ML IV SCH ×2 (09:34→23:30)
[2021-08-27] MEDS: cefTRIAXone SOD 2 GM in D5W MINI-BAG PLUS 50 ML IV SCH (11:16)
[2021-08-27 12:00] VITALS: BP 131/60
--- NOTE | 2021-08-27 12:35 | IPNPDOC ---
Subjective Date Seen The patient was seen on 08/27/21. Subjective Chief Complaint/HPI Patient was delirious overnight. Had an ammonia checked which was normal. Needed a dose of olanzapine. His oxycodone dosage was cut down. I have reduced the dose of steroids also. This a.m. awake alert and mostly able to express his thoughts however has been saying the same things again and again and symptoms unable to complete his thoughts or sentence and I have had to complete his sentences. He did not complain of any back pain today. He was able to ambulate to the bathroom with one assist. Still remains confused and demanding to go home. Objective Physical Examination General Exam: Positive: Alert, Cooperative, No Acute Distress Eye Exam: Positive: PERRLA, Conjunctiva & lids normal, EOMI; Negative: Sclera icteric ENT Exam: Positive: Atraumatic, Mucous membr. moist/pink, Pharynx Normal Neck Exam: Positive: Supple, +2 carotid pulse wo bruit; Negative: JVD, thyromegaly Chest Exam: Positive: Rales, Wheezing, Diminished, Other (use of accessory muscles, crackles at the bases. , conducted sounds from the throat. ) Heart Exam: Positive: Tachycardic, Irregular Rhythm, Normal S1, Normal S2; Negative: Gallops, Murmurs, Rubs Telemetry: Positive: Atrial fibrillation Abdomen Exam: Positive: Normal bowel sounds, Soft, Tenderness (Epigastrium) Extremity Exam: Positive: Edema, Normal pulses; Negative: Clubbing, Cyanosis Neuro Exam: Positive: Strength at 5/5 X4 ext, Normal Tone Psych Exam: Positive: Anxiety Assessment /Plan Assessment 86 Year old male with PMH of diastolic CHF, DAVIDE, COPD with chronic hypoxic respiratory failure Afib, chronic ITP, IgG [place] gammopathy , recently found a third pulmonary nodule underwent PET scan on 08/22/21 presented to the ED with shortness of breath, cough and increased phlegm for 2 days. Patient reports that he had to stop his lasix for 2 days prior to PET scan and had to take increased water as per PET scan instructions. A day after the PET scan he started feeling SOB which continued to worsen so came to the ED today. In the ED he was noted to be in Afib with RVR. He was found to be hypoxic needing 4 liters of oxygen. In CT chest lung dexter show scattered bilateral interstitial and early airspace opacities. Findings most consistent with pulmonary edema secondary to CHF. He was admitted for CHF exacerbation and hypoxia. Later on procalcitonin came back high so was empirically started on antibiotics. CT abdomen at this time done for abdominal pain showed A new patchy and nodular density has developed in the right lower lobe. Diastolic CHF exacerbation new echo ordered Received several doses of lasix will hold off diuretics Right lower lobe pneumonia Procal elevated to 0.75 blood cultures no growth till date. will add ceftriaxone and doxycycline. Acute delirium Due to hospital stay and infection and medications including narcotics and steroids Needed olanzapine Afib with RVR will continue metoprolol and coumadin received 2 doses of digoxin. rate now controlled. Asthma with exacerbation I discussed the patient with Dr. Sheppard who follows him as an outpatient patient actually has asthma history of COPD continue advair, levalbuterol and methyl prednisone Severe back pain has multilevel vertebral compression will continue on oxycodone. Chronic ITP platelet at 45 Cirrhosis of Liver As per daughter Kely had a liver biopsy [address] Minna Richards. It was found that he has autoimmune hepatitis and cirrhosis of liver Infection is likely contributing to his dropping platelet count. 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 PET scan shows 2 hypermetabolic nodules. At least one of them is malignant Follow-up with oncology and pulmonology regarding further investigation or treatment HLD statin Plan/VTE VTE Prophylaxis Ordered?: Yes VS, I&O, 24H, Fishbone Vital Signs/I&O Vital Signs Date Time Temp Pulse Resp B/P (MAP) Pulse Ox O2 Delivery O2 Flow Rate FiO2 08/27/21 12:00 96.3 80 18 131/60 (83) 98 Nasal Cannula 3.0 I&O- Last 24 Hours up to 6 AM 08/27/21 05:59 Intake Total 0 ml Output Total 300 ml Balance -300 ml Laboratory Data 24H LABS Laboratory Tests 2 08/26/21 20:46: Bedside Glucose (Misc Panel) 141H 08/26/21 21:56: Nucleated Red Blood Cells % (auto) 0.0, Immature Platelet Fraction 15.7H, Anion Gap 4L, Glomerular Filtration Rate > 60.0, Calcium Level 9.4, Magnesium Level 2.2, Ammonia 40H, Total Creatine Kinase 49, Creatine Kinase MB 1.3, Creatine Kinase MB Relative Index 2.65, Troponin I 0.02 08/27/21 05:54: Nucleated Red Blood Cells % (auto) 0.6H, Anion Gap 5L, Glomerular Filtration Rate > 60.0, Calcium Level 9.9, Magnesium Level 2.4, Neutrophils (%) (Auto) , Neutrophils 52, Band Neutrophils 22H, Lymphocytes (Manual) 20, Monocytes (Manual) 3, Atypical Lymphocytes 3, Hypochromasia 1+, Anisocytosis 1+, Macrocytosis 2+, Platelet Estimate MARKED DECREASE, Prothrombin Time 28.2H, Prothromb Time International Ratio 2.60 CBC/BMP Laboratory Tests 08/26/21 21:56 08/27/21 05:54 Microbiology Microbiology 08/25/21 Urine Culture - Final, Complete 08/25/21 Blood Culture - Preliminary, Resulted No Growth after 48 hours. All Specime... 08/25/21 Respiratory Virus Panel (PCR) ([facility]ANETH) - Final, Complete 08/25/21 Blood Culture - Preliminary, Resulted No Growth after 48 hours. All Specime... Batsheva Jarvis MD Aug 27, 2021 12:35
[2021-08-27 16:00] VITALS: BP 140/64
[2021-08-27] MEDS ORDERED: WARFARIN SOD 3MG TAB PO SCH (17:00)
--- NOTE | 2021-08-27 17:27 | ECHO ---
ECHOCARDIOGRAM DATE OF PROCEDURE: 08/26/2021 Age: 86 Gender: Male Height: 68 inches Weight: 205 pounds Body surface area: 2.07 m2 Inpatient, progressive care unit (PCU), room 3224 REFERRING PHYSICIAN: Batsheva Jarvis M.D. INDICATION: Heart failure (unspecified). MEASUREMENTS: 2D Measurements: RV - 5.8 cm LV - 4.8 cm Septum 1.0 cm Posterior wall 1.0 cm Aortic root 3.6 cm LA - 4.7 cm LVEF 50% Doppler Measurements: AV - 1.69 m/s LVOT - 0.88 m/s LVOT diameter 2.2 cm Mean AV systolic gradient 6 mmHg Dimensionless index 0.62 MV-E 117 Early mitral deceleration time 148 msec E prime medial 6 E prime lateral 11 Average E/E prime ratio 13.8/PCWP 19 mmHg PV - 0.77 m/s Pulmonary artery acceleration time 95 msec RVSP at least 56 mmHg IVC - 3.0 cm COMMENTS: Underlying atrial fibrillation with controlled ventricular response. Right bundle branch block. Technically challenging study in light of the patient's body habitus, but diagnostically useful information was still obtained. M-mode and 2-dimensional echocardiography was performed with pulse, continuous wave, color flow, and tissue Doppler studies. Normal left ventricular size and wall thickness with septal flattening, in keeping with right ventricular pressure overload. Other wall motion was normal to hyperkinetic with minimal impairment of global resting left ventricular systolic function. Mild to moderately dilated left atrium with current estimated mean left atrial pressure only slightly elevated. Prominent dilated right heart chambers with hypokinesis of the right ventricular free wall and Doppler evidence of probably severe pulmonary hypertension. Markedly dilated IVC with absent respiratory collapse, in keeping with significantly elevated central venous pressure/right heart failure. Normal aortic dimensions. Moderate aortic valvular sclerosis without stenosis and only trace insufficiency. Moderate degenerative changes of the mitral valvular apparatus without inflow tract obstruction and only trace insufficiency. Normal-appearing tricuspid valve with severe insufficiency. No apparent intracardiac mass or pericardial effusion.
[2021-08-27 20:00] VITALS: BP 156/73
[2021-08-27] MEDS: ROSUVASTATIN 10 MG TAB (CRESTOR) PO SCH (20:31)
[2021-08-27] MEDS: **NOTE PATIENT COMMENT** MISC XX SCH (20:42)
[2021-08-28] VITALS: BP 123/59
[2021-08-28] MEDS: LEVALBUTEROL 1.25 MG/0.5 ML CONCENTRATE NEB INH SCH ×4 (01:24→20:00)
[2021-08-28] MEDS: methylPREDNISolone 40MG 1ML VIAL IV SCH ×2 (03:40→16:13)
[2021-08-28] MEDS ORDERED: OLANZapine INTRAMUSCULAR 10MG VIAL IM ONE (05:50)
[2021-08-28 08:00] VITALS: BP 132/57
[2021-08-28] MEDS: ADVAIR HFA 115/21MCG INHALER INH SCH ×3 (08:50→20:22)
[2021-08-28] MEDS: METOPROLOL SUCC (TopROL XL) 50MG **XL** TAB PO SCH (09:00)
[2021-08-28] MEDS: GABAPENTIN 300 MG CAP PO SCH ×2 (09:25→20:00)
[2021-08-28] MEDS: DOCUSATE SODIUM 100MG CAPSULE PO SCH ×2 (09:25→20:00)
[2021-08-28] MEDS: DOXYCYCLINE HYCLATE 100 MG in D5W MINI-BAG PLUS 100 ML IV SCH ×2 (09:26→22:22)
[2021-08-28] MEDS: PANTOPRAZOLE 40MG VIAL (C9113 PER 1) IV SCH ×2 (09:26→20:00)
[2021-08-28] MEDS: LIDOCAINE 5% (LIDODERM) PATCH TD SCH (09:27)
[2021-08-28] MEDS: SPIRONOLACTONE 25 MG TAB PO SCH ×2 (09:39→16:13)
[2021-08-28 10:08] LABS: HEMATOCRIT 35.5 % (42.0-52.0); HEMOGLOBIN 11.1 g/dl (13.5-17.5); MEAN CORPUSCULAR HEMOGLOBIN 31.5 pg (27.0-33.0); MEAN CORPUSCULAR HGB CONC 31.3 g/dl (32.0-36.5); MEAN CORPUSCULAR VOLUME 100.9 fl (80.0-96.0); RED BLOOD COUNT 3.52 10^6/uL (4.30-6.10); WHITE BLOOD COUNT 6.5 10^3/uL (4.0-10.0)
[2021-08-28 10:10] LABS: PLATELET COUNT, AUTOMATED 67 10^3/uL (150-450)
[2021-08-28 10:23] LABS: INR 1.85; PROTHROMBIN TIME 21.7 SECONDS (12.7-14.5)
[2021-08-28 10:29] LABS: BLOOD UREA NITROGEN 55 MG/DL (7-18); CALCIUM LEVEL 9.6 MG/DL (8.8-10.2); CARBON DIOXIDE LEVEL 29 MEQ/L (21-32); CHLORIDE LEVEL 106 MEQ/L (98-107); CREATININE FOR GFR 1.13 MG/DL (0.70-1.30); GLOMERULAR FILTRATION RATE > 60.0 (>35); GLUCOSE, FASTING 205 MG/DL (70-100); MAGNESIUM LEVEL 2.2 MG/DL (1.8-2.4); POTASSIUM SERUM 4.4 MEQ/L (3.5-5.1); SODIUM LEVEL 140 MEQ/L (136-145)
[2021-08-28 10:34] LABS: ATYPICAL LYMPH 2 % (0-5); LYMPHOCYTES 10 % (16-44); MONOCYTES 3 % (0-5); NEUTROPHILS 74 % (28-66)
[2021-08-28 10:35] LABS: ANISOCYTOSIS 1+; HYPOCHROMASIA 1+; PLATELET ESTIMATE MARKED DECREASE (NORMAL)
--- NOTE | 2021-08-28 11:50 | IPNPDOC ---
Subjective Date Seen The patient was seen on 08/28/21. Subjective Chief Complaint/HPI Patient confused this am though speech is clearer and more goal oriented and able to have a better conversation and focus more. However still could not dial his home phone number and continued trying for 10 mins. He is adamant that he want to go home and wants his to come and pick him up. He did get the idea that she could not come upstairs. I could not reason with him about why he needed to stay in another day. He has been ambulating to bathroom with walker. Reports he feels better though not completely well and says he feels he would be OK at home. Objective Physical Examination General Exam: Positive: Alert, Cooperative, No Acute Distress Eye Exam: Positive: PERRLA, Conjunctiva & lids normal, EOMI; Negative: Sclera icteric ENT Exam: Positive: Atraumatic, Mucous membr. moist/pink, Pharynx Normal Neck Exam: Positive: Supple, +2 carotid pulse wo bruit; Negative: JVD, thyromegaly Chest Exam: Positive: Rales, Wheezing, Diminished, Other (use of accessory muscles, crackles at the bases. , conducted sounds from the throat. ) Heart Exam: Positive: Tachycardic, Irregular Rhythm, Normal S1, Normal S2; Negative: Gallops, Murmurs, Rubs Telemetry: Positive: Atrial fibrillation Abdomen Exam: Positive: Normal bowel sounds, Soft, Tenderness (Epigastrium) Extremity Exam: Positive: Edema, Normal pulses; Negative: Clubbing, Cyanosis Neuro Exam: Positive: Strength at 5/5 X4 ext, Normal Tone Psych Exam: Positive: Anxiety Assessment /Plan Assessment 86 Year old male with PMH of diastolic CHF, DAVIDE, COPD with chronic hypoxic respiratory failure Afib, chronic ITP, IgG [place] gammopathy , recently found a third pulmonary nodule underwent PET scan on 08/22/21 presented to the ED with shortness of breath, cough and increased phlegm for 2 days. Patient reports that he had to stop his lasix for 2 days prior to PET scan and had to take increased water as per PET scan instructions. A day after the PET scan he started feeling SOB which continued to worsen so came to the ED today. In the ED he was noted to be in Afib with RVR. He was found to be hypoxic needing 4 liters of oxygen. In CT chest lung dexter show scattered bilateral interstitial and early airspace opacities. Findings most consistent with pulmonary edema secondary to CHF. He was admitted for CHF exacerbation and hypoxia. Later on procalcitonin came back high so was empirically started on antibiotics. CT abdomen at this time done for abdominal pain showed A new patchy and nodular density has developed in the right lower lobe. Diastolic CHF exacerbation new echo ordered Received several doses of lasix will hold off lasix, continue spironolactone. Right lower lobe pneumonia Procal elevated to 0.75 blood cultures no growth till date. will add ceftriaxone and doxycycline. Acute delirium Due to hospital stay, infection and medications including narcotics and steroids will start on seroquel. reduce dose fo steroids. Afib with RVR will continue metoprolol and coumadin received 2 doses of digoxin. rate now controlled. Asthma with exacerbation I discussed the patient with Dr. Sheppard who follows him as an outpatient patient actually has asthma and not COPD continue advair, levalbuterol and methyl prednisone Severe back pain has multilevel vertebral compression will continue on oxycodone and lidoderm patch. Chronic ITP Platelet at baseline. Cirrhosis of Liver As per daughter Kely had a liver biopsy [address] Minna Richards. It was found that he has autoimmune hepatitis and cirrhosis of liver Infection is likely contributing to his dropping platelet count. 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 PET scan shows 2 hypermetabolic nodules. At least one of them is malignant Follow-up with oncology and pulmonology regarding further investigation or suzy tment HLD statin Plan/VTE VTE Prophylaxis Ordered?: Yes VS, I&O, 24H, Fishbone Vital Signs/I&O Vital Signs Date Time Temp Pulse Resp B/P (MAP) Pulse Ox O2 Delivery O2 Flow Rate FiO2 08/28/21 08:00 96.1 67 20 132/57 (82) 98 Nasal Cannula 3.0 I&O- Last 24 Hours up to 6 AM 08/28/21 05:59 Intake Total 1080 ml Output Total 700 ml Balance 380 ml Laboratory Data 24H LABS Laboratory Tests 2 08/28/21 09:50: Neutrophils (%) (Auto) , Nucleated Red Blood Cells % (auto) 0.3H, Neutrophils 74H, Band Neutrophils 11, Lymphocytes (Manual) 10L, Monocytes (Manual) 3, Atypical Lymphocytes 2, Hypochromasia 1+, Anisocytosis 1+, Macrocytosis 1+, Platelet Estimate MARKED DECREASE, Immature Platelet Fraction 13.9H, Prothrombin Time 21.7H, Prothromb Time International Ratio 1.85, Anion Gap 5L, Glomerular Filtration Rate > 60.0, Calcium Level 9.6, Magnesium Level 2.2 CBC/BMP Laboratory Tests 08/28/21 09:50 Microbiology Microbiology 08/25/21 Urine Culture - Final, Complete 08/25/21 Blood Culture - Preliminary, Resulted No Growth after 72 hours. All specime... 08/25/21 Respiratory Virus Panel (PCR) (YANETH) - Final, Complete 08/25/21 Blood Culture - Preliminary, Resulted No Growth after 72 hours. All specime... Batsheva Jarvis MD Aug 28, 2021 11:50
[2021-08-28] MEDS: cefTRIAXone SOD 2 GM in D5W MINI-BAG PLUS 50 ML IV SCH (12:00)
[2021-08-28] MEDS ORDERED: QUEtiapine FUMARATE 12.5 MG HALF-TAB PO ONE (12:00)
[2021-08-28 13:56] VITALS: BP 118/77
[2021-08-28] MEDS: WARFARIN SOD 3MG TAB PO SCH (16:14)
[2021-08-28] MEDS: ROSUVASTATIN 10 MG TAB (CRESTOR) PO SCH (20:00)
[2021-08-28] MEDS: QUEtiapine FUMARATE 12.5 MG HALF-TAB PO SCH (20:00)
[2021-08-28] MEDS: **NOTE PATIENT COMMENT** MISC XX SCH (21:00)
--- NOTE | 2021-08-28 21:18 | ECGEPIP ---
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
[2021-08-28 22:00] VITALS: BP 122/86
[2021-08-29] MEDS: LEVALBUTEROL 1.25 MG/0.5 ML CONCENTRATE NEB INH SCH ×4 (02:00→19:40)
[2021-08-29] MEDS ORDERED: OLANZapine INTRAMUSCULAR 10MG VIAL IM PRN (05:10)
[2021-08-29 06:00] VITALS: BP 136/79
[2021-08-29] MEDS: ADVAIR HFA 115/21MCG INHALER INH SCH ×2 (07:49→19:40)
[2021-08-29] MEDS: DOCUSATE SODIUM 100MG CAPSULE PO SCH ×2 (09:22→19:44)
[2021-08-29] MEDS: methylPREDNISolone 40MG 1ML VIAL IV SCH (09:22)
[2021-08-29] MEDS: PANTOPRAZOLE 40MG VIAL (C9113 PER 1) IV SCH ×2 (09:22→19:43)
[2021-08-29] MEDS: QUEtiapine FUMARATE 12.5 MG HALF-TAB PO SCH ×2 (09:22→19:44)
[2021-08-29] MEDS: SPIRONOLACTONE 25 MG TAB PO SCH ×2 (09:22→16:02)
[2021-08-29] MEDS: GABAPENTIN 300 MG CAP PO SCH ×2 (09:23→19:44)
[2021-08-29] MEDS: METOPROLOL SUCC (TopROL XL) 50MG **XL** TAB PO SCH (09:25)
[2021-08-29] MEDS: LIDOCAINE 5% (LIDODERM) PATCH TD SCH (09:28)
[2021-08-29] MEDS: DOXYCYCLINE HYCLATE 100 MG in D5W MINI-BAG PLUS 100 ML IV SCH ×2 (09:28→21:28)
[2021-08-29] MEDS: cefTRIAXone SOD 2 GM in D5W MINI-BAG PLUS 50 ML IV SCH (10:32)
[2021-08-29 13:11] LABS: BASO % 0.1 % (0.0-1.0); HEMATOCRIT 35.3 % (42.0-52.0); LYMPH # 0.5 10^3/uL (1.5-5.0); LYMPH % 5.4 % (24.0-44.0); MEAN CORPUSCULAR HEMOGLOBIN 31.2 pg (27.0-33.0); MEAN CORPUSCULAR HGB CONC 31.2 g/dl (32.0-36.5); MONO # 0.8 10^3/uL (0.0-0.8); MONO % 8.1 % (2.0-8.0); NEUTROPHILS % 84.7 % (36.0-66.0); RED BLOOD COUNT 3.53 10^6/uL (4.30-6.10); WHITE BLOOD COUNT 9.5 10^3/uL (4.0-10.0)
[2021-08-29 13:12] LABS: PLATELET COUNT, AUTOMATED 74 10^3/uL (150-450)
[2021-08-29 13:27] LABS: BLOOD UREA NITROGEN 46 MG/DL (7-18); CALCIUM LEVEL 10.5 MG/DL (8.8-10.2); CARBON DIOXIDE LEVEL 30 MEQ/L (21-32); CHLORIDE LEVEL 106 MEQ/L (98-107); CREATININE FOR GFR 1.03 MG/DL (0.70-1.30); GLOMERULAR FILTRATION RATE > 60.0 (>35); GLUCOSE, FASTING 156 MG/DL (70-100); INR 1.91; MAGNESIUM LEVEL 2.1 MG/DL (1.8-2.4); POTASSIUM SERUM 4.4 MEQ/L (3.5-5.1); PROTHROMBIN TIME 22.3 SECONDS (12.7-14.5); SODIUM LEVEL 140 MEQ/L (136-145)
--- NOTE | 2021-08-29 13:36 | IPNPDOC ---
Subjective Date Seen The patient was seen on 08/29/21. Subjective Chief Complaint/HPI Patient continues to be confused and agitated overnight. Needed olanzapine early this morning. He has also been on Seroquel. He is somnolent this morning however when I woke him up he just wanted to go home. He reports that he feels fine and would be able to manage at home. He still remains on oxygen 2 L. As per nurse and ambulating to the bathroom early this morning he had desaturated. Did not want to get out of bed or work with physical therapy this morning. Objective Physical Examination General Exam: Positive: Alert, Cooperative, No Acute Distress Eye Exam: Positive: PERRLA, Conjunctiva & lids normal, EOMI; Negative: Sclera icteric ENT Exam: Positive: Atraumatic, Mucous membr. moist/pink, Pharynx Normal Neck Exam: Positive: Supple, +2 carotid pulse wo bruit; Negative: JVD, thyromegaly Chest Exam: Positive: Rales, Wheezing, Diminished, Other (use of accessory muscles, crackles at the bases. , conducted sounds from the throat. ) Heart Exam: Positive: Tachycardic, Irregular Rhythm, Normal S1, Normal S2; Negative: Gallops, Murmurs, Rubs Telemetry: Positive: Atrial fibrillation Abdomen Exam: Positive: Normal bowel sounds, Soft, Tenderness (Epigastrium) Extremity Exam: Positive: Edema, Normal pulses; Negative: Clubbing, Cyanosis Neuro Exam: Positive: Strength at 5/5 X4 ext, Normal Tone Psych Exam: Positive: Anxiety Assessment /Plan Assessment 86 Year old male with PMH of diastolic CHF, DAVIDE, COPD with chronic hypoxic respiratory failure Afib, chronic ITP, IgG [place] gammopathy , recently found a third pulmonary nodule underwent PET scan on 08/22/21 presented to the ED with shortness of breath, cough and increased phlegm for 2 days. Patient reports that he had to stop his lasix for 2 days prior to PET scan and had to take increased water as per PET scan instructions. A day after the PET scan he started feeling SOB which continued to worsen so came to the ED today. In the ED he was noted to be in Afib with RVR. He was found to be hypoxic needing 4 liters of oxygen. In CT chest lung dexter show scattered bilateral interstitial and early airspace opacities. Findings most consistent with pulmonary edema secondary to CHF. He was admitted for CHF exacerbation and hypoxia. Later on procalcitonin came back high so was empirically started on antibiotics. CT abdomen at this time done for abdominal pain showed A new patchy and nodular density has developed in the right lower lobe. Systolic and Diastolic CHF exacerbation with severe pulmonary hypertension and right heart failure. Echo shows EF of 50% with severe pulmonary hypertension and right heart failure. Received several doses of lasix Now appears Euvolemic Continues to need Oxygen Right lower lobe pneumonia Procal elevated to 0.75 blood cultures no growth till date. On ceftriaxone and doxycycline. Continues to need oxygen. Acute delirium Due to hospital stay, infection and medications including narcotics and steroids started on seroquel. steroids stopped Afib with RVR will continue metoprolol and coumadin received 2 doses of digoxin. rate now controlled. Asthma with exacerbation I discussed the patient with Dr. Sheppard who follows him as an outpatient patient actually has asthma and not COPD continue advair, levalbuterol . Received 5 days of steroids will stop Severe back pain has multilevel vertebral compression will continue on oxycodone and lidoderm patch. Chronic ITP Platelet at baseline. Cirrhosis of Liver As per daughter Kely had a liver biopsy [address] Minna Richards. It was found that he has autoimmune hepatitis and cirrhosis of liver Infection is likely contributing to his dropping platelet count. 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 PET scan shows 2 hypermetabolic nodules. At least one of them is malignant Follow-up with oncology and pulmonology regarding further investigation or treatment HLD statin Plan/VTE VTE Prophylaxis Ordered?: Yes VS, I&O, 24H, Fishbone Vital Signs/I&O Vital Signs Date Time Temp Pulse Resp B/P (MAP) Pulse Ox O2 Delivery O2 Flow Rate FiO2 08/29/21 12:00 88 Room Air 08/29/21 09:30 2.0 08/29/21 09:25 81 151/57 08/29/21 06:00 97.9 17 I&O- Last 24 Hours up to 6 AM 08/29/21 06:00 Intake Total 660 ml Output Total 500 ml Balance 160 ml Laboratory Data 24H LABS Laboratory Tests 2 08/29/21 12:00: Immature Granulocyte % (Auto) 1.7, Neutrophils (%) (Auto) 84.7H, Lymphocytes (%) (Auto) 5.4L, Monocytes (%) (Auto) 8.1H, Eosinophils (%) (Auto) 0.0, Basophils (%) (Auto) 0.1, Neutrophils # (Auto) 8.0, Lymphocytes # (Auto) 0.5L, Monocytes # (Auto) 0.8, Eosinophils # (Auto) 0.0, Basophils # (Auto) 0.0, Nucleated Red Blood Cells % (auto) 0.0, Immature Platelet Fraction 13.2H, Prothrombin Time 22.3H, Prothromb Time International Ratio 1.91, Anion Gap 4L, Glomerular Filtration Rate > 60.0, Calcium Level 10.5H, Magnesium Level 2.1 CBC/BMP Laboratory Tests 08/29/21 12:00 Microbiology Microbiology 08/25/21 Urine Culture - Final, Complete 08/25/21 Blood Culture - Preliminary, Resulted No Growth after 72 hours. All specime... 08/25/21 Respiratory Virus Panel (PCR) ([facility]) - Final, Complete 08/25/21 Blood Culture - Preliminary, Resulted No Growth after 72 hours. All specime... Batsheva Jarvis MD Aug 29, 2021 13:36
[2021-08-29] MEDS: WARFARIN SOD 3MG TAB PO SCH (16:02)
[2021-08-29] MEDS: ROSUVASTATIN 10 MG TAB (CRESTOR) PO SCH (19:44)
[2021-08-29 20:00] VITALS: BP 141/75
[2021-08-29] MEDS: **NOTE PATIENT COMMENT** MISC XX SCH (20:33)
[2021-08-29 22:00] VITALS: BP 141/75
[2021-08-30] MEDS: LEVALBUTEROL 1.25 MG/0.5 ML CONCENTRATE NEB INH SCH ×2 (01:34→07:40)
[2021-08-30] MEDS: ADVAIR HFA 115/21MCG INHALER INH SCH (07:39)
[2021-08-30 08:28] LABS: BASO % 0.4 % (0.0-1.0); EOS % 0.2 % (0.0-3.0); HEMATOCRIT 38.1 % (42.0-52.0); HEMOGLOBIN 11.8 g/dl (13.5-17.5); LYMPH # 1.1 10^3/uL (1.5-5.0); LYMPH % 10.3 % (24.0-44.0); MEAN CORPUSCULAR HEMOGLOBIN 30.9 pg (27.0-33.0); MEAN CORPUSCULAR VOLUME 99.7 fl (80.0-96.0); MONO % 9.6 % (2.0-8.0); NEUTROPHILS # 7.8 10^3/uL (1.5-8.5); NEUTROPHILS % 76.3 % (36.0-66.0); RED BLOOD COUNT 3.82 10^6/uL (4.30-6.10); WHITE BLOOD COUNT 10.2 10^3/uL (4.0-10.0)
[2021-08-30 08:31] LABS: PLATELET COUNT, AUTOMATED 84 10^3/uL (150-450)
[2021-08-30 08:39] LABS: BLOOD UREA NITROGEN 39 MG/DL (7-18); CALCIUM LEVEL 10.1 MG/DL (8.8-10.2); CARBON DIOXIDE LEVEL 30 MEQ/L (21-32); CHLORIDE LEVEL 106 MEQ/L (98-107); CREATININE FOR GFR 0.92 MG/DL (0.70-1.30); GLOMERULAR FILTRATION RATE > 60.0 (>35); GLUCOSE, FASTING 89 MG/DL (70-100); POTASSIUM SERUM 4.1 MEQ/L (3.5-5.1); SODIUM LEVEL 141 MEQ/L (136-145)
[2021-08-30 08:40] LABS: INR 2.31; PROTHROMBIN TIME 25.8 SECONDS (12.7-14.5)
[2021-08-30] MEDS: GABAPENTIN 300 MG CAP PO SCH (08:51)
[2021-08-30] MEDS: DOCUSATE SODIUM 100MG CAPSULE PO SCH (08:51)
[2021-08-30] MEDS: QUEtiapine FUMARATE 12.5 MG HALF-TAB PO SCH (08:51)
[2021-08-30] MEDS: SPIRONOLACTONE 25 MG TAB PO SCH (08:51)
[2021-08-30] MEDS: PANTOPRAZOLE 40MG VIAL (C9113 PER 1) IV SCH (08:51)
[2021-08-30] MEDS: LIDOCAINE 5% (LIDODERM) PATCH TD SCH (08:52)
[2021-08-30 08:53] VITALS: BP 136/70
[2021-08-30] MEDS: METOPROLOL SUCC (TopROL XL) 50MG **XL** TAB PO SCH (08:53)
[2021-08-30] MEDS: DOXYCYCLINE HYCLATE 100 MG in D5W MINI-BAG PLUS 100 ML IV SCH (09:35)
[2021-08-30] MEDS ORDERED: QUET1TAB17 PO (10:21)
[2021-08-30] MEDS: cefTRIAXone SOD 2 GM in D5W MINI-BAG PLUS 50 ML IV SCH (10:41)
[2021-08-30] MEDS ORDERED: DOXY-350 PO (18:35)
[2021-08-30] MEDS ORDERED: CEFD1CAP8 PO (18:35)
--- NOTE | 2021-08-30 18:44 | DS.PDOC ---
Discharge Summary General Date of Admission Aug 25, 2021 at 16:45 Date of Discharge 08/30/2021 Primary Care Physician: Anna Garcia Attending Physician: BRYAN CHANDLER DO Discharge Summary PROCEDURES PERFORMED DURING STAY: None. ADMITTING DIAGNOSES: 1. Heart failure with preserved ejection fraction exacerbation. 2. Atrial fibrillation with RVR 3. COPD 4. Chronic ITP 5. IgA gammopathy 6. Pulmonary nodules 7. Hyperlipidemia. DISCHARGE DIAGNOSES: 1. Systolic and diastolic CHF exacerbation with severe pulmonary hypertension right heart failure. 2. Right lower lobe pneumonia 3. Acute delirium 4. A. fib with RVR 5. Asthma exacerbation 6. Severe back pain 7. Chronic ITP 8. Cirrhosis of the liver 9. IgG kappa gammopathy 10. Pulmonary nodules 11. Hyperlipidemia. COMPLICATIONS/CHIEF COMPLAINT: Chf Exacerbation. HISTORY OF PRESENT ILLNESS: Patient is an 86-year-old male with past medical history of diastolic CHF, DAVIDE, COPD with chronic hypoxic respiratory failure who presented to the emergency department with shortness of breath, cough, increased phlegm for 2 days. Patient reports that he has stopped his Lasix 2 days prior to his PET scan and had to take increased water per PET scan instructions. A day after the PET scan he started noticing feeling shortness of breath and continues to worsen so he came in the emergency department. Patient also complained of poor appetite and nausea for the last 2 days and reports that he is not been able to eat much. In the ED he was noticed to have A. fib with RVR. He was found to be hypoxic needing 4 L of oxygen. And CT chest lung dexter show scattered bilateral interstitial early airspace opacities. Findings most consistent pulmonary edema secondary to CHF. Patient was admitted for CHF exacerbation with hypoxia. HOSPITAL COURSE: Patient was found to be in moderate distress on his first day of hospitalization due to severe back pain and is unable to lay straight and he is rolling from side to side. Patient was also having a rattling cough and was not able to bring up much phlegm. Patient was in A. fib with RVR. Morphine was given to control the pain and after that his pulse rate became better controlled. Patient became delirious overnight on 08/26/2021 and his ammonia was checked which was normal. Patient needed a dose of olanzapine. Patient's oxycodone dosage was cut in half and the steroid doses were also reduced. Patient was awake and alert. Patient was diagnosed with pneumonia with an elevated procalcitonin. Patient was started on ceftriaxone and doxycycline. Patient received 5 days of IV ceftriaxone and 9 doses of IV doxycycline prior to being discharged. Patient's oxygen requirements continued to decrease. Patient continue work with physical therapy and improved. Patient was doing better and patient's daughter came into work with the patient in physical therapy. Patient was deemed ready for discharge on 08/30/2021. When the initial discharge paperwork was being completed, antibiotics were not sent. These were sent later on in the day. I contacted the patient's home and cell phone number and left messages in order to make him aware that these were sent after the patient was discharged. Patient should continue cefdinir twice daily for 2 days and doxycycline twice daily for 3 days. Patient was discharged home on 08/30/2021. DISCHARGE MEDICATIONS: Please see below. ALLERGIES: Please see below. PHYSICAL EXAMINATION ON DISCHARGE: VITAL SIGNS: Please see below. General: Alert and oriented male patient who was sitting in bedside chair and walked in. Patient did not appear to be in any acute distress. HEENT: Normocephalic, atraumatic, moist mucous membranes. Neck: No lymphadenopathy or thyromegaly Cardiac: Regular rate and rhythm, no murmurs, normal S1, normal S2 Pulm: Diminished breath sounds but clear to auscultation bilaterally. Abd: Nondistended, nontender to palpation, normal bowel sounds Ext: No edema bilateral lower extremities LABORATORY DATA: Please see below. IMAGING: Chest x-ray performed on 08/25/2021 was reported to show stable chronic findings with no definite superimposed acute infiltrate. CT scan of the chest performed without contrast on 08/25/2021 was reported to show findings most consistent with pulmonary edema likely secondary to CHF with findings limitations. Follow-up is suggested. CT of the abdomen and pelvis without contrast from 08/26/2021 was reported to show allowing for the differences in technical factors between today's examination examination of 04/20/2021, there does not appear to be significant change. Possible cirrhotic features of the liver is status quo. Cholelithiasis status quo. Chronic osseous changes status quo. There are changes in the right lung base as described above for which clinical correlation and follow-up is suggested. Pneumonia cannot be ruled out. A new patchy nodular density has developed in the right lower lobe. PROGNOSIS: Fair ACTIVITY: As tolerated. DIET: 2 g sodium DISCHARGE PLAN: Discharge home with home health service DISPOSITION: Home Health Service. DISCHARGE INSTRUCTIONS: 1. Follow-up with primary care provider within 3 to 5 days of discharge. 2. Continue antibiotics as prescribed 3. Follow-up with oncology for your results of your PET scan 4. Return to the emergency department if symptoms worsen ITEMS TO FOLLOWUP ON ON OUTPATIENT: 1. Pneumonia to resolution and results of PET scan. DISCHARGE CONDITION: Stable. TIME SPENT ON DISCHARGE: 35 minutes. Vital Signs/I&Os Vital Signs Date Time Temp Pulse Resp B/P (MAP) Pulse Ox O2 Delivery O2 Flow Rate FiO2 08/30/21 12:09 94 Room Air 08/30/21 08:53 88 136/70 08/29/21 22:00 98.0 17 2.0 I&O- Last 24 Hours up to 6 AM 08/30/21 06:00 Intake Total 820 ml Output Total 1250 ml Balance -430 ml Laboratory Data Labs 24H Laboratory Tests 2 08/30/21 07:22: Immature Granulocyte % (Auto) 3.2H, Neutrophils (%) (Auto) 76.3H, Lymphocytes (%) (Auto) 10.3L, Monocytes (%) (Auto) 9.6H, Eosinophils (%) (Auto) 0.2, Basophils (%) (Auto) 0.4, Neutrophils # (Auto) 7.8, Lymphocytes # (Auto) 1.1L, M onocytes # (Auto) 1.0H, Eosinophils # (Auto) 0.0, Basophils # (Auto) 0.0, Nucleated Red Blood Cells % (auto) 0.0, Prothrombin Time 25.8H, Prothromb Time International Ratio 2.31, Anion Gap 5L, Glomerular Filtration Rate > 60.0, Calcium Level 10.1, Magnesium Level 2.0 CBC/BMP Laboratory Tests 08/30/21 07:22 Microbiology Microbiology 08/25/21 Urine Culture - Final, Complete 08/25/21 Blood Culture - Final, Complete NO GROWTH AFTER 5 DAYS 08/25/21 Respiratory Virus Panel (PCR) ([facility]) - Final, Complete 08/25/21 Blood Culture - Final, Complete NO GROWTH AFTER 5 DAYS Discharge Medications Scheduled Cyclosporine (Restasis) 0.05 % Emu, 1 DROP OU BID, (Reported) Fluticasone Propion/Salmeterol (Advair Hfa 115-21 Mcg Inhaler) 12 Gm Hfa.aer.ad, 2 PUFF INH BID, (Reported) Furosemide (Furosemide) 40 Mg Tablet, 40 MG PO BID, (Reported) Gabapentin (Gabapentin) 600 Mg Tab, 600 MG PO QAM, (Reported) Gabapentin (Gabapentin) 600 Mg Tab, 1,200 MG PO QHS, (Reported) Metoprolol Succinate (Metoprolol Succinate) 50 Mg Tab.er.24h, 50 MG PO DAILY, (Reported) Oxycodone HCl/Acetaminophen (Oxycodone-Acetaminophen 5-325) 1 Each Tablet, 1 TAB PO Q4H for pain Quetiapine Fumarate (Quetiapine Fumarate) 25 Mg Tablet, 12.5 MG PO BID Rosuvastatin Calcium (Crestor) 20 Mg Tablet, 20 MG PO QHS, (Reported) Spironolactone (Spironolactone) 25 Mg Tablet, 25 MG PO BID, (Reported) Warfarin Sodium (Warfarin Sodium) 3 Mg Tablet, 6 MG PO DAILY, (Reported) Scheduled PRN Acetaminophen (Acetaminophen) 500 Mg Tablet, 1,000 MG PO Q6H PRN for PAIN LEVEL 1-4, (Reported) Albuterol Sulf (Albuterol Sulfate) 2.5 Mg/3 Ml Vial.neb, 2.5 MG NEB Q4H PRN for WHEEZING, (Reported) Albuterol Sulfate (Ventolin Hfa) 18 Gm Hfa.aer.ad, 1 PUFF INH QID PRN for WHEEZING, (Reported) Esomeprazole Magnesium (Nexium) 40 Mg Cap, 40 MG PO DAILY PRN for HEARTBURN, (Reported) Guaifenesin (Mucinex) 600 Mg Tab.er.12h, 600 MG PO BID PRN for COUGH, (Reported) Magic Mouthwash (First-Mouthwash Blm) 1 Ea Susp, 10 ML MT QID PRN for MUCOSITIS, (Reported) Nitroglycerin (Nitrostat) 0.4 Mg Subl, 0.4 MG SL ASDIRECTED PRN for CHEST PAIN, (Reported) Sodium Chloride (Saline Nasal [place]) 44 Ml [place], 1 SPRAY NARES BID PRN for CONGESTION, (Reported) Allergies Coded Allergies: No Known Allergies (Verified , 07/15/17) BRYAN CHANDLER DO Aug 30, 2021 18:44
== END 2021-08-30 14:15 | disposition home health service (06) | DRG 291 ==
LOC: EDBD 09:58 → M ED 09:58 → M ED INP 16:45 → M PCU 20:16 → M MSPAV 08-28 13:55
PROVIDERS: ADMIT Internal Medicine Nephrology; ATTEND Family Medicine
DX: I11.0 Hypertensive heart disease with heart failure (principal); I50.43 Acute on chronic combined systolic (congestive) and diastolic (congestive) heart failure; J18.9 Pneumonia, unspecified organism; D69.3 Immune thrombocytopenic purpura; J96.11 Chronic respiratory failure with hypoxia; J44.1 Chronic obstructive pulmonary disease with (acute) exacerbation; J45.901 Unspecified asthma with (acute) exacerbation; R91.1 Solitary pulmonary nodule; I27.20 Pulmonary hypertension, unspecified; I25.10 Atherosclerotic heart disease of native coronary artery without angina pectoris; I48.91 Unspecified atrial fibrillation; E78.5 Hyperlipidemia, unspecified; M19.90 Unspecified osteoarthritis, unspecified site; N40.0 Benign prostatic hyperplasia without lower urinary tract symptoms; K75.4 Autoimmune hepatitis; R41.0 Disorientation, unspecified; K74.60 Unspecified cirrhosis of liver; J32.9 Chronic sinusitis, unspecified; M50.10 Cervical disc disorder with radiculopathy, unspecified cervical region; Z85.828 Personal history of other malignant neoplasm of skin; Z85.46 Personal history of malignant neoplasm of prostate; Z90.5 Acquired absence of kidney; Z92.3 Personal history of irradiation; Z95.5 Presence of coronary angioplasty implant and graft; Z87.891 Personal history of nicotine dependence; Z79.01 Long term (current) use of anticoagulants; Z79.891 Long term (current) use of opiate analgesic; Z79.899 Other long term (current) drug therapy